=== PATIENT | female | born 1945 | race African-American/Black ===

== ENCOUNTER 2019-02-27 14:20 | Inpatient (IN) | payer MEDICARE ==
[~2019-02-27] VITALS: Ht 162.6 cm; Wt 58.5 kg
--- NOTE | 2019-02-27 14:35 | Emergency Room Report ---
History of Present Illness General Chief Complaint: Generalized Weakness Source: EMS Present Illness HPI Disclaimer: Please note that this report is being documented using [employer] technology. This can lead to erroneous entry secondary to incorrect interpretation by the dictating instrument. HPI: 73-year-old female with a history of hypertension, ESRD on hemodialysis, previous stroke without residual deficits, diabetes presents for evaluation of shortness of breath and missed dialysis. EMS states they were called for shortness of breath however when they arrived the patient had no complaints. There were told that she has not had dialysis in a week though is unclear what day she actually had dialysis. She does not know her schedule and is overall a poor historian. Per EMS, her baseline is AO x2. She denies any complaints at this time and denies shortness of breath, lower extremity swelling, cough, chest pain, headache. EMS states that her caretakers also noted increased agitation over the past few days which she again denies. Apparently, she has been not been transported to her dialysis because of an insurance issue and transport company refusing to take her. She either had dialysis 3 days ago or 10 days ago however this is unclear according to EMS and the patient. PMH: Hypertension, hyperlipidemia, ESRD on hemodialysis, CVA, diabetes PSH: Fistula formation left upper extremity Allergies: None Social Hx: None Allergies: Coded Allergies: No Known Allergies (Unverified , 02/27/19) Nursing Documentation-PMH Past Medical History: No History, Except For Hx Hypertension: Yes Hx Diabetes: Yes Hx Dialysis: Yes Hx Cerebrovascular Accident: Yes Review of Systems All Other Systems: negative except mentioned in HPI Physical Exam Vital Signs Date Time Temp Pulse Resp B/P (MAP) Pulse Ox O2 Delivery O2 Flow Rate FiO2 02/27/19 14:20 98.6 105 16 150/71 (97) 99 Room Air General: Awake and alert, no acute distress HEENT: NC/AT. EOMI. dry mucous membranes Cardiovascular: Slightly tachycardic. There is a systolic ejection murmur best heard at the left sternal border. Fistula with palpable thrill in the left upper extremity Resp: Normal work of breathing. No cough, wheezing or crackles appreciated Abdomen: Abdomen is soft, nondistended. Nontender Skin: Intact. No abrasions, laceration or rash over the exposed skin MSK: Normal tone and bulk. Moving all extremities. No obvious deformity. No lower extremity edema Neuro: Awake and alert. Mentating appropriately. Medical Decision Making Diagnostic Impression: Primary Impression: ESRD (end stage renal disease) on dialysis Additional Impression: Anemia ER Course 73-year-old female with a history of ESRD on hemodialysis presents for evaluation for missed dialysis appointment. Originally, the complaint was for shortness of breath however the patient denies any EMS states that she never complained of shortness of breath or was hypoxic on route. She has no complaints at this time. It is unclear when her last hemodialysis session was and we will try to obtain collateral information as the patient herself is a poor historian. Will obtain EKG, chest x-ray, broad metabolic and infectious work-up. She is in no acute distress with mild tachycardia but otherwise stable vital signs and no clinical symptoms of fluid overload. Laboratory Tests Test 02/27/19 14:35 White Blood Count 11.0 K/UL (4.8-10.8) H Red Blood Count 2.87 M/UL (4.20-5.40) L Hemoglobin 8.1 G/DL (12.0-16.0) L Hematocrit 24.4 % (37.0-47.0) L Mean Corpuscular Volume 85 FL (80-99) Mean Corpuscular Hemoglobin 28.2 PG (27.0-31.0) Mean Corpuscular Hemoglobin Concent 33.2 G/DL (32.0-36.0) Red Cell Distribution Width 12.7 % (11.6-14.8) Platelet Count 229 K/UL (150-450) Mean Platelet Volume 5.4 FL (6.5-10.1) L Neutrophils (%) (Auto) 64.8 % (45.0-75.0) Lymphocytes (%) (Auto) 22.7 % (20.0-45.0) Monocytes (%) (Auto) 7.3 % (1.0-10.0) Eosinophils (%) (Auto) 4.4 % (0.0-3.0) H Basophils (%) (Auto) 0.9 % (0.0-2.0) Prothrombin Time 10.7 SEC (9.30-11.50) Prothrombin Time INR 1.0 (0.9-1.1) PTT 28 SEC (23-33) Sodium Level 144 MMOL/L (136-145) Potassium Level 4.1 MMOL/L (3.5-5.1) Chloride Level 109 MMOL/L (98-107) H Carbon Dioxide Level 17 MMOL/L (21-32) L Anion Gap 19 mmol/L (5-15) H Blood Urea Nitrogen 86 mg/dL (7-18) H Creatinine 11.0 MG/DL (0.55-1.30) H Estimate Glomerular Filtration Rate mL/min (>60) Glucose Level 145 MG/DL (74-106) H Calcium Level 8.7 MG/DL (8.5-10.1) Total Bilirubin 0.3 MG/DL (0.2-1.0) Aspartate Amino Transferase (AST) 19 U/L (15-37) Alanine Aminotransferase (ALT) 25 U/L (12-78) Alkaline Phosphatase 81 U/L (46-116) Troponin I 0.011 ng/mL (0.000-0.056) Pro-B-Type Natriuretic Peptide 2661 pg/mL (0-125) H Total Protein 7.3 G/DL (6.4-8.2) Albumin 3.4 G/DL (3.4-5.0) Globulin 3.9 g/dL Albumin/Globulin Ratio 0.9 (1.0-2.7) L EKG Diagnostic Results EKG Time: 14:33 Rate: normal Rhythm: NSR ST Segments: no acute changes Other Impression Sinus rhythm, normal axis, normal intervals, no ST segment changes. Mild peaking of T waves in V2 only. Rhythm Strip Diag. Results Rhythm Strip Time: 14:33 EP Interpretation: yes Rate: 90s Rhythm: NSR, no PVC's, no ectopy Chest X-Ray Diagnostic Results Chest X-Ray Diagnostic Results : # of Views/Limited/Complete: 1 View Indication: Shortness of Breath EP Interpretation: Yes Interpretation: no consolidation, no effusion, no pneumothorax, no acute cardiopulmonary disease Impression: No acute disease Electronically Signed by: Electronically signed by Dr. Ryley Oliveira Reevaluation Time: 15:24 Last Vital Signs Date Time Temp Pulse Resp B/P (MAP) Pulse Ox O2 Delivery O2 Flow Rate FiO2 02/27/19 14:20 98.6 105 16 150/71 (97) 99 Room Air Reevaluation Impression Labs show anemia with a hemoglobin of 8.1 likely secondary to the patient's chronic kidney disease. There is no active bleeding and she is hemodynamically stable. Does not require emergent transfusion at this time. Chest x-ray shows no consolidation, no effusion, no acute cardiopulmonary disease and no evidence of acute fluid overload. She does not appear to require emergent dialysis at this time.. BN peptide elevated consistent with the patient's ESRD and need for dialysis as is creatinine and BUN. Will try and arrange dialysis with PMD and tile grader. 1615: Unable to arrange dialysis as the patient's tile grader is out of town, the office has no documentation on the patient, PMD unable to arrange due to a lapse in her [employer] coverage even though she still has Medicare and be active. The patient is bedridden and while she does have some in-home health aide they will not be able to arrange her own dialysis and transport. She will require admission for dialysis and social work evaluation. I updated the patient's brother by telephone. He tells me that she has missed at least 3 episodes of dialysis and has not received dialysis since since February 20 when she was at [facility]. Disposition: ADMITTED INPATIENT Condition: Serious Ryley Oliveira MD Feb 27, 2019 14:35
[2019-02-27] MEDS ORDERED: ASPIRIN81 MG ORAL (14:36)
[2019-02-27] MEDS ORDERED: B-COMPLEX WITH1 EACH ORAL (14:36)
[2019-02-27] MEDS ORDERED: DOCUSATE SODIU100 MG ORAL (14:36)
[2019-02-27] MEDS ORDERED: VITAMIN D250000 UNI1 ORAL (14:36)
[2019-02-27] MEDS ORDERED: ATORVASTATIN CA40 MG ORAL (14:36)
[2019-02-27] MEDS ORDERED: HYDRALAZINE HC100 MG ORAL (14:36)
[2019-02-27] MEDS ORDERED: AMLODIPINE BESY10 MG ORAL (14:36)
--- NOTE | 2019-02-27 14:39 | NUR ---
ED Nurse Note:pt. was JOSUÉ from private residence with c/o missing dialysis tod, last dialysis at [facility] on tuesday
--- NOTE | 2019-02-27 14:42 | NUR ---
ED Nurse Note:blood sent to labs, dialysis line is on left arm
[2019-02-27 14:44] VITALS: BP 149/69
[2019-02-27 14:50] LABS: BASOPHILS % (AUTO) 0.9 % (0.0-2.0); EOSINOPHILS % (AUTO) 4.4 % (0.0-3.0); HEMATOCRIT 24.4 % (37.0-47.0); HEMOGLOBIN 8.1 G/DL (12.0-16.0); LYMPHOCYTES % (AUTO) 22.7 % (20.0-45.0); MEAN CORPUSCULAR VOLUME 85 FL (80-99); MONOCYTES % (AUTO) 7.3 % (1.0-10.0); NEUTROPHILS % (AUTO) 64.8 % (45.0-75.0); PLATELET COUNT 229 K/UL (150-450); RED BLOOD COUNT 2.87 M/UL (4.20-5.40); RED CELL DISTRIBUTION WIDTH 12.7 % (11.6-14.8)
[2019-02-27 15:05] LABS: ANION GAP 19 mmol/L (5-15); BLOOD UREA NITROGEN 86 mg/dL (7-18); CALCIUM 8.7 MG/DL (8.5-10.1); CARBON DIOXIDE 17 MMOL/L (21-32); CHLORIDE 109 MMOL/L (98-107); POTASSIUM 4.1 MMOL/L (3.5-5.1); SODIUM 144 MMOL/L (136-145)
[2019-02-27 15:17] LABS: ALANINE AMINOTRANSFERASE 25 U/L (12-78); ALBUMIN 3.4 G/DL (3.4-5.0); ALBUMIN/GLOBULIN RATIO 0.9 (1.0-2.7); ALKALINE PHOSPHATASE 81 U/L (46-116); ASPARTATE AMINO TRANSFERASE 19 U/L (15-37); BILIRUBIN,TOTAL 0.3 MG/DL (0.2-1.0)
--- NOTE | 2019-02-27 15:33 | Diagnostic Imaging Report ---
Indication: Shortness of breath Technique: One view of the chest Comparison: none Findings: Lungs and pleural spaces are clear. Heart size is normal. Impression: No acute process
--- NOTE | 2019-02-27 17:06 | NUR ---
ED Nurse Note: Patient gets dialysis ([place], [place]) at [place] [facility] . Last dialysis was 02/17/2019. Per Brother @ [phone], patient unable to get tranportation from home to dialysis center due to lack of insurance.
[2019-02-27 17:44] VITALS: BP 148/67
--- NOTE | 2019-02-27 18:30 | NUR ---
ED Nurse Note:called report to [facility] east- given to Dolores RN, pt. was taken up stairs
--- NOTE | 2019-02-27 18:43 | NUR ---
NURSE NOTES: Patient arrived the floor from ER by cole around 1835; I received report from ER Kelsey; patient on room air, no sing of distress and shortness of breath; no sing of chest pain; IV RH 20G flushes well; hemodialysis port on Left-Upper Arm; patient bed bound; skin intact; belonging lists crossed match and singed by transferring nurse and receiving nurse; vitals taken upon arrival of the unit. side rails up x3, breaks engaged, bed alarm on, bed at lowest position; will keep monitoring.
[2019-02-27 18:47] VITALS: BP 170/82
--- NOTE | 2019-02-27 19:35 | NUR ---
HAND-OFF: Report given to MICHAEL Abebe.
--- NOTE | 2019-02-27 19:36 | NUR ---
NURSE NOTES: Received a report from MICHAEL Almanzar. Pt is in stable condition. AOX2. Able to make needs known. C/O vaginal pain, rated 10/10. Will give pain med once it's due. On room air. Belongings checked by MICHAEL Almanzar. Perineal discoloration noted. Overall, skin is intact. IV site is patent and intact. Bed in lowest position. Bed alarm is on. Call light within reach. Will continue to monitor.
[2019-02-27 20:00] VITALS: BP 141/73
[2019-02-27] MEDS: Heparin 5000 units/ml inj SUBQ SCH (21:00)
[2019-02-27] MEDS: HydrALAZINE 50mg tab ORAL SCH (21:18)
[2019-02-27] MEDS: Atorvastatin 80mg tab ORAL SCH (21:18)
[2019-02-27] MEDS: Morphine Sulfate 2mg/ml Inj(IV/IM USE ONLY) IVP PRN (21:20)
[2019-02-28] VITALS: BP 153/82
[2019-02-28 04:00] VITALS: BP 150/72
[2019-02-28] MEDS: HydrALAZINE 50mg tab ORAL SCH ×3 (06:03→21:07)
[2019-02-28] MEDS: Morphine Sulfate 2mg/ml Inj(IV/IM USE ONLY) IVP PRN ×2 (06:04→14:11)
--- NOTE | 2019-02-28 07:25 | NUR ---
NURSE NOTES: Patient awake, alert x2; on room air, no sing of distress and shortness of breath; no sing of chest pain; IV RH 20G flushes well; Hemodialysis port on Left-Upper Arm; perineal discoloration noted; need to collect Urinalysis, received an order MD Quevedo to do straight cath; side rails up x2, breaks engaged, bed at lowest position, call light within reach; will keep monitoring.
--- NOTE | 2019-02-28 07:28 | NUR ---
HAND-OFF: Report given to MICHAEL Almanzar.
[2019-02-28 08:00] VITALS: BP 137/73
[2019-02-28] MEDS: Nephrovite tab (Rena-Vite) ORAL SCH (08:58)
[2019-02-28] MEDS: Docusate 100mg cap ORAL SCH ×2 (08:58→17:12)
[2019-02-28] MEDS: Aspirin Baby 81mg ORAL SCH (08:58)
[2019-02-28] MEDS: Heparin 5000 units/ml inj SUBQ SCH ×2 (08:59→21:07)
[2019-02-28 09:50] LABS: % IRON SATURATION 32 % (15-50); IRON 53 ug/dL (50-175); TOTAL IRON BINDING CAPACITY 167 ug/dL (250-450)
--- NOTE | 2019-02-28 10:15 | History and Physical Report ---
DATE OF ADMISSION: 02/27/2019 CHIEF COMPLAINT: Renal failure and missed hemodialysis. HISTORY OF PRESENT ILLNESS: The patient is a 73-year-old female. She has a history of end-stage renal disease and hypertension, who presented from home with her family because of missed dialysis. According to family members, there has been problems with transportation. The patient has been unable to get to hemodialysis. There may be an issue with her [employer]. Because of her missed dialysis and renal failure, she is admitted for further evaluation and care. The patient is a poor historian. She is slow to answer questions and seems slightly confused. It is unclear whether this is her baseline or not. Intensive contact with her brother so far have been unsuccessful. The patient denies any fevers or chills. No chest pain. No shortness of breath. No weakness or numbness. PAST MEDICAL HISTORY: As above. PAST SURGICAL HISTORY: Includes a left upper extremity AV fistula. CURRENT MEDICATIONS: Reconciled and reviewed. ALLERGIES: None. FAMILY HISTORY: Significant for diabetes. SOCIAL HISTORY: Negative for tobacco, ethanol, or drugs. REVIEW OF SYSTEMS: GENERAL: No fever or chills. HEENT: No headaches or visual changes. CARDIOPULMONARY: No chest pain or shortness of breath. GASTROINTESTINAL: No nausea. No vomiting. GENITOURINARY: No urgency or frequency. MUSCULOSKELETAL: No joint pain or swelling. NEUROLOGIC: No evidence of seizures. PHYSICAL EXAMINATION: VITAL SIGNS: Temperature 98, pulse 103, respirations 18, and blood pressure 150/72. GENERAL: The patient is a well-developed female, in no apparent distress. NECK: Supple. HEART: Regular rate and rhythm. LUNGS: Lungs are clear. ABDOMEN: Soft, nontender, and nondistended. EXTREMITIES: Without clubbing or cyanosis. There is a left upper extremity AV fistula with a good bruit. LABORATORY DATA: White count 11, hemoglobin 8, hematocrit 24, and platelets 229,000. Coags are normal. Sodium was 144, potassium 4.1, chloride 109, bicarb 17, BUN 86, and creatinine 11. Natriuretic peptide level was 2600. ASSESSMENT: This is a 73-year-old female with history of end-stage renal disease and hypertension, admitted because of missed hemodialysis. PLAN: 1. Continue outpatient antihypertensive regimen. 2. Renal consultation for dialysis. 3. Cardiology consultation to assist with management of the patient's blood pressure. 4. Case management and social services counselor also be asked to assist with her insurance problems and transportation issues. Once transportation is arranged, the patient can be discharged. Freddy Quevedo M.D. DR: JESSICA JOB#: [id number] CC:
[2019-02-28 12:00] VITALS: BP 154/65
--- NOTE | 2019-02-28 12:16 | NUR ---
CASE MANAGEMENT: REVIEW 73 YR OLD FEMALE FROM HOME CC: GENERAL WEAKNESS SI: END STAGE RENAL DISEASE- PT ON DIALYSIS 98.6 105 15 150/71 99%RA WBC 11.0; RBC 2.87; H/H 8.8/24.4; BUN 86, CRE 11.0, BG 145 BNP 2661; IS: CXR ECG LABS : 4E MED SURG DCP: SNF PLACEMENT CASE MANAGEMENT: REVIEW 02/28/19 SI: END STAGE RENAL DISEASE- PT ON DIALYSIS 98.7 101 20 137/73 98%RA TIBC 167 IS: HEPARIN SQ [id number] PO QD ASA PO QD HYDRALAZINE PO Q8HR LIPITOR PO HS IV MORPHINE SULFATE TID/PRN 4E MED/SURG DCP: RETURN TO HOME OR SNF PLACEMENT
--- NOTE | 2019-02-28 14:00 | NUR ---
NURSE NOTES: Patient dialyzed today, according to dialysis nursuad, 2 Liters removed.
--- NOTE | 2019-02-28 15:55 | NUR ---
NURSE NOTES: Patient couldn't let me try to do straight cath; charge nurse Yana is aware; will keep trying.
[2019-02-28 16:00] VITALS: BP 147/76
--- NOTE | 2019-02-28 16:09 | NUR ---
DISCHARGE PLAN: PLACEMENT AND DIALYSIS PATIENT WAS PREVIOUS AT [facility]; SPOKE TO JENNIFER T: [phone] FACILITY IS HAPPY TO TAKE PATIENT BACK ONCE MEDICALLY CLEARED; PATIENT WAS ON DIALYSIS AT FACILITY; FACILITY WILLING TO TAKE PATIENT TO DIALYSIS WHILE WAITING FOR MEDICAL TO PROCESS; JENNIFER WILL SETUP MEDICAL ONCE PATIENT IS AT FACILITY.
--- NOTE | 2019-02-28 16:30 | Consultation ---
DATE OF CONSULTATION: 02/28/2019 CONSULTING PHYSICIAN: Alonso Cavazos M.D. REFERRING PHYSICIAN: Freddy Quevedo M.D. HISTORY OF PRESENT ILLNESS: The patient is a 73-year-old female who undergoes hemodialysis three days per week presented to the emergency room overnight for further evaluation and care after the family brought her in because she had missed several dialysis sessions. According to the family, she has had troubles with transportation and is unable to ascertain her dialysis session on a regular basis due to her underlying insurance carrier. The patient is difficult to assess, poor historian. PAST MEDICAL HISTORY: 1. End-stage renal disease, on hemodialysis. 2. Anemia of chronic kidney disease. 3. Secondary hyperparathyroidism. 4. Hypertension. 5. Hyperlipidemia. PAST SURGICAL HISTORY: Left upper extremity AV fistula FAMILY HISTORY: Positive for hypertension. ALLERGIES: No known drug allergies SOCIAL HISTORY: No tobacco, alcohol, or drug use. LABORATORY AND DIAGNOSTIC DATA: Labs dated February 27, 2019, white cell count 11, hemoglobin 8, and platelet count 229. Creatinine 11, sodium 144, potassium 4.1, BUN 86. PHYSICAL EXAMINATION: VITAL SIGNS: Blood pressure 137/73, pulse 100, temperature 98.7, 98% oxygen saturation on room air. GENERAL: The patient is awake, alert, not in distress. HEENT: Extraocular muscles intact. No lymphadenopathy noted. CARDIOVASCULAR: S1 and S2. No rubs or gallops. PULMONARY: Clear to auscultation bilaterally. No rales, rhonchi, or wheezes. ABDOMEN: Nondistended and nontender. EXTREMITIES: No edema. ASSESSMENT AND PLAN: 1. End-stage renal disease, on hemodialysis. The patient currently undergoing hemodialysis session. We will continue to follow daily labs. 2. Hypertension, stable. Adjust medications as deemed appropriate. 3. Anemia of chronic kidney disease. Hemoglobin currently 8.1. We will add Epogen with hemodialysis. 4. . will return tomorrow. Alonso Cavazos MD DR: Jennifer JOB#: [id number] CC:
[2019-02-28] MEDS: HYDROcodone/Acetamin 10/325 tab ORAL PRN (17:12)
--- NOTE | 2019-02-28 19:34 | NUR ---
HAND-OFF: Report given to MICHAEL Schwartz.
--- NOTE | 2019-02-28 19:52 | NUR ---
NURSE NOTES: Received patient awake,resting in bed,comfortable.
[2019-02-28 20:09] VITALS: BP 142/65
[2019-02-28] MEDS ORDERED: Epoetin Alfa-EPBX(ESRD on dialysis)10,000 unit/ml vial SUBQ SCH (21:00)
[2019-02-28] MEDS ORDERED: Epoetin Alfa-EPBX(ESRD on dialysis)3000 units/ml vial SUBQ SCH (21:00)
[2019-02-28] MEDS ORDERED: Epoetin Alfa-EPBX(ESRD on dialysis)4000 units/ml vial SUBQ SCH (21:00)
[2019-02-28] MEDS: Atorvastatin 80mg tab ORAL SCH (21:07)
[2019-03-01] VITALS: BP 126/80
[2019-03-01 04:00] VITALS: BP 136/66
[2019-03-01] MEDS: HydrALAZINE 50mg tab ORAL SCH ×3 (06:00→22:28)
--- NOTE | 2019-03-01 07:35 | NUR ---
HAND-OFF: Report given to Kaelyn Thomas RN.
--- NOTE | 2019-03-01 07:37 | General Progress Note ---
Assessment/Plan Problem List: (1) Anemia ICD Codes: D64.9 - Anemia, unspecified SNOMED: 722267122 (2) ESRD (end stage renal disease) on dialysis ICD Codes: N18.6 - End stage renal disease; Z99.2 - Dependence on renal dialysis SNOMED: 175567928 Status: stable Assessment/Plan: follow up labs HD dc planning home once transportation arranged Subjective ROS Limited/Unobtainable: No Constitutional: Reports: malaise, weakness HEENT: Reports: no symptoms Cardiovascular: Reports: no symptoms Respiratory: Reports: no symptoms Gastrointestinal/Abdominal: Reports: no symptoms Genitourinary: Reports: no symptoms Neurologic/Psychiatric: Reports: anxiety Endocrine: Reports: no symptoms Hematologic/Lymphatic: Reports: no symptoms Allergies: Coded Allergies: No Known Allergies (Unverified , 02/27/19) All Systems: reviewed and negative except above Subjective no events. w/o complaints. s/p HD yesterday. no new complaints. Objective Last 24 Hour Vital Signs Date Time Temp Pulse Resp B/P (MAP) Pulse Ox O2 Delivery O2 Flow Rate FiO2 03/01/19 06:00 136/66 03/01/19 04:00 97.8 100 16 136/66 (89) 96 03/01/19 00:00 98.2 90 16 126/80 (95) 98 02/28/19 21:07 142/65 02/28/19 20:21 Room Air 02/28/19 20:09 97.9 94 16 142/65 (90) 98 02/28/19 17:42 98.2 02/28/19 16:00 98.2 104 20 147/76 (99) 98 02/28/19 14:41 98.1 02/28/19 13:14 154/65 02/28/19 12:00 98.1 97 20 154/65 (94) 100 02/28/19 09:00 Room Air 02/28/19 08:58 101 137/73 02/28/19 08:00 98.7 101 20 137/73 (94) 98 Intake and Output 02/28/19 03/01/19 18:59 06:59 Intake Total 480 ml Output Total 2000 ml Balance -1520 ml Intake Oral 480 ml Output Hemodialysis UF 2000 ml # Voids 2 Laboratory Tests 02/28/19 08:40: Iron Level 53, Total Iron Binding Capacity 167L, Percent Iron Saturation 32, Unsaturated Iron Binding 114 Height (Feet): 5 Height (Inches): 4.00 Weight (Pounds): 127 General Appearance: WD/WN, alert Neck: supple Cardiovascular: normal rate Respiratory/Chest: chest wall non-tender, lungs clear, normal breath sounds Abdomen: normal bowel sounds, non tender, soft, no organomegaly Edema: no edema noted Arm (L), no edema noted Arm (R), no edema noted Leg (L), no edema noted Leg (R), no edema noted Pedal (L), no edema noted Pedal (R), no edema noted Generalized Neurologic: commercial energy rater II-XII grossly normal, alert, oriented x 3, responsive Freddy Quevedo MD Mar 01, 2019 07:37
--- NOTE | 2019-03-01 07:49 | NUR ---
NURSE NOTES: Patient is awake and alert ,respirations unlabored,patient sitting up in bed and eating breakfast.Right arm dialysis catheter with strong bruit and thrills. Bed alarm is internet sales consultant light within reach.No IV noted will reinsert .
[2019-03-01 08:36] VITALS: BP 145/76
[2019-03-01] MEDS: Heparin 5000 units/ml inj SUBQ SCH ×2 (08:40→20:16)
--- NOTE | 2019-03-01 08:52 | NUR ---
NURSE NOTES: Attempt to give patient her morning oral schedule medication ,patient refusing medication,explain to patient the importance of taking medication,patient says no.
[2019-03-01] MEDS: Docusate 100mg cap ORAL SCH ×2 (09:00→17:47)
[2019-03-01] MEDS: Nephrovite tab (Rena-Vite) ORAL SCH (10:37)
[2019-03-01] MEDS: Aspirin Baby 81mg ORAL SCH (10:39)
--- NOTE | 2019-03-01 10:42 | NUR ---
NURSE NOTES: Patient agree to take her morning medication at this time, except stool softner.
[2019-03-01 12:00] VITALS: BP 139/65
--- NOTE | 2019-03-01 14:56 | Nephrology Progress Note ---
Assessment/Plan Problem List: (1) Hypertensive nephrosclerosis (2) Dementia (3) Anemia in chronic kidney disease (4) ESRD (end stage renal disease) on dialysis Plan Medications reviewed for end-stage renal disease she needs Epogen and arrangement for outpatient care dialysis arranged for 03/02 Subjective ROS Limited/Unobtainable: Yes Objective Objective Last 24 Hour Vital Signs Date Time Temp Pulse Resp B/P (MAP) Pulse Ox O2 Delivery O2 Flow Rate FiO2 03/01/19 10:38 97 142/67 03/01/19 10:18 Room Air 03/01/19 08:36 97.7 99 18 145/76 (99) 96 03/01/19 06:00 136/66 03/01/19 04:00 97.8 100 16 136/66 (89) 96 03/01/19 00:00 98.2 90 16 126/80 (95) 98 02/28/19 21:07 142/65 02/28/19 20:21 Room Air 02/28/19 20:09 97.9 94 16 142/65 (90) 98 02/28/19 17:42 98.2 02/28/19 16:00 98.2 104 20 147/76 (99) 98 Intake and Output 02/28/19 03/01/19 19:00 07:00 Intake Total 480 ml Output Total 2000 ml Balance -1520 ml Intake Oral 480 ml Output Hemodialysis UF 2000 ml # Voids 2 Laboratory Tests 03/01/19 09:40: Hepatitis B Surface Antigen [Pending] Height (Feet): 5 Height (Inches): 4.00 Weight (Pounds): 129 General Appearance: no apparent distress, lethargic, confused EENT: normal ENT inspection Neck: normal alignment Cardiovascular: normal rate, regular rhythm Respiratory/Chest: lungs clear Abdomen: non tender Extremities: other Neurologic: motor weakness Dylon Stringer MD Mar 01, 2019 14:56
[2019-03-01] MEDS ORDERED: Heparin Sod 1000 units/ml 10ml IV PRN (15:00)
[2019-03-01 16:00] VITALS: BP 125/63
--- NOTE | 2019-03-01 18:22 | NUR ---
CHARGE NURSE NOTE: [facility] ([place]) was notified that pt is scheduled for HD tomorrow 03/02/19.
--- NOTE | 2019-03-01 18:30 | NUR ---
NURSE NOTES: Patient sitting up in bed,no complaints at this time,call light within reach.
--- NOTE | 2019-03-01 19:35 | NUR ---
NURSE NOTES: Received patient in bed, awake, alert, oriented x2/3, IV site is clean dry and intact. Left upper shunt with good bruit and thrill, no acute distress noted, call light is within reach, bed is in low position, locked and alarm is on. Will continue to assess for comfort and safety.
--- NOTE | 2019-03-01 19:49 | NUR ---
HAND-OFF: Report given to Zainab RODRIGUEZ.
[2019-03-01 20:00] VITALS: BP 154/70
[2019-03-01] MEDS: Atorvastatin 80mg tab ORAL SCH (20:14)
[2019-03-02] VITALS: BP 110/78
[2019-03-02 04:00] VITALS: BP 143/78
--- NOTE | 2019-03-02 04:30 | Progress Note ---
DATE: 03/01/2019 CARDIOLOGY PROGRESS NOTE SUBJECTIVE: The patient is status post hemodialysis with ultrafiltration yesterday. Blood pressure parameters have improved, but remains slightly elevated. She has no chest pain or shortness of breath. OBJECTIVE: VITAL SIGNS: Blood pressure 136/66, pulse 100, respirations 16, and afebrile. LUNGS: Clear. CARDIAC: Regular rhythm and rate. Normal S1, S2 with a fourth heart sound. There is no rub. ABDOMEN: Soft. EXTREMITIES: No edema. LABORATORY DATA: Cultures remain negative. No new laboratories. IMPRESSION: 1. Missed dialysis with metabolic encephalopathy. 2. End-stage renal disease. 3. Hypertensive heart disease. 4. Acute on chronic diastolic congestive heart failure. PLAN: 1. Hemodialysis with ultrafiltration for volume management. 2. Cautious up titration of antihypertensives. 3. Check echocardiogram to help guide long-term cardiovascular management based on ejection fraction. 4. Consider lipid panel. 5. We will attempt to review prior database. Bulmaro Hester M.D. DR: JEANNE JOB#: [id number] CC:
[2019-03-02] MEDS: HydrALAZINE 50mg tab ORAL SCH (05:49)
[2019-03-02] MEDS: HYDROcodone/Acetamin 10/325 tab ORAL PRN (06:53)
--- NOTE | 2019-03-02 07:35 | NUR ---
HAND-OFF: Report given to Kaelyn RODRIGUEZ.
--- NOTE | 2019-03-02 07:57 | NUR ---
NURSE NOTES: Patient is awake and alert sitting up in bed and eating breakfast.Respirations are unlabored/Left arm shunt with strong bruit and thrill ,skin clean and dry .Bed alarm is on,call light within reach.Patient is schedule for Dialysis today,will follow up.
[2019-03-02 08:01] VITALS: BP 145/72
--- NOTE | 2019-03-02 08:09 | Nephrology Progress Note ---
Assessment/Plan Problem List: (1) Hypertensive nephrosclerosis (2) Dementia (3) Anemia in chronic kidney disease (4) ESRD (end stage renal disease) on dialysis (5) CVA, old, cognitive deficits Plan Medications reviewed for end-stage renal disease she needs Epogen and arrangement for outpatient care dialysis arranged for 03/02 hold hydralazine predialysis to mitigate hypotension Subjective Constitutional: Reports: weakness HEENT: Reports: no symptoms Genitourinary: Reports: no symptoms Neurologic/Psychiatric: Reports: pre-existing deficit Objective Objective Last 24 Hour Vital Signs Date Time Temp Pulse Resp B/P (MAP) Pulse Ox O2 Delivery O2 Flow Rate FiO2 03/02/19 08:01 98.1 93 18 145/72 (96) 100 03/02/19 07:33 97.8 03/02/19 05:49 143/78 03/02/19 04:00 97.8 78 18 143/78 (99) 98 03/02/19 00:00 97.8 74 20 110/78 (89) 98 03/01/19 22:28 139/78 03/01/19 21:05 Room Air 03/01/19 20:00 98.9 93 18 154/70 (98) 97 03/01/19 16:00 98.2 89 20 125/63 (83) 99 03/01/19 15:09 139/62 03/01/19 12:00 97.7 100 139/65 (89) 96 03/01/19 10:38 97 142/67 03/01/19 10:18 Room Air 03/01/19 08:36 97.7 99 18 145/76 (99) 96 Intake and Output 03/01/19 03/02/19 18:59 06:59 Intake Total 750 ml Balance 750 ml Intake Oral 750 ml # Voids 3 Laboratory Tests 03/01/19 09:40: Hepatitis B Surface Antigen Negative Height (Feet): 5 Height (Inches): 4.00 Weight (Pounds): 129 General Appearance: no apparent distress, confused EENT: normal ENT inspection Neck: non-tender, normal alignment Cardiovascular: normal rate, regular rhythm Respiratory/Chest: lungs clear Abdomen: non tender, soft Extremities: other - No edema Neurologic: motor weakness - Left side weakness Dylon Stringer MD Mar 02, 2019 08:09
[2019-03-02] MEDS: Docusate 100mg cap ORAL SCH ×2 (09:00→18:00)
[2019-03-02] MEDS: Aspirin Baby 81mg ORAL SCH (09:26)
[2019-03-02] MEDS: Nephrovite tab (Rena-Vite) ORAL SCH (09:26)
[2019-03-02] MEDS: Heparin 5000 units/ml inj SUBQ SCH (09:28)
[2019-03-02] MEDS ORDERED: Iron Sucrose 100 MG in NS 55 ML IV SCH (10:00)
[2019-03-02 12:00] VITALS: BP 141/74
--- NOTE | 2019-03-02 13:45 | NUR ---
P.T NOTE: P.T evaluation completed and tx initiated. Please refer to P.T evaluation for current functional status. Pt is alert, O x to self/person and place but not to time. Pt had no c/o pain. Pt is limited by residual L hemiparesis from old hx of CVA and generalized weakness affecting overall functional mobility performance. Skilled P.T service is warranted to improve her strength , balance and endurance to increase her mobility independence and return to PLOF. Recommend return to prior living arrangement with [facility] assist and home P.T follow up at [place].
[2019-03-02] MEDS ORDERED: HydrALAZINE 50mg tab ORAL SCH (14:00)
[2019-03-02 14:06] VITALS: BP 128/69
--- NOTE | 2019-03-02 14:23 | NUR ---
NURSE NOTES: Patient IV out,attempt to restart iv,patient state No leave me alone,I do not want IV.Explain to patient regarding medication ordered to be given IV,patient state she do not want IV,will notify DR Stringer.
--- NOTE | 2019-03-02 14:42 | NUR ---
RD ASSESSMENT & RECOMMENDATIONS SEE CARE ACTIVITY FOR COMPLETE ASSESSMENT DAILY ESTIMATED NEEDS: Needs based on Renal, HD/ 59kg 25-30 kcals/kg 2863-7570 total kcals 1.2-1.8 g protein/kg 71-106 g total protein 25-30 mL/kg 3600-4157 total fluid mLs NUTRITION DIAGNOSIS: Increased kcal/prot intake needs R/T renal dysfunction as evidenced by ESRD dx, on HD. CURRENT DIET:RENAL PO DIET RECOMMENDATIONS: RENAL+ CCHO MED/ texture as tolerated ADDITIONAL RECOMMENDATIONS: * Calibrated bedscale wt for accurate CBW -> obtain dry wt post HD * Nepro 1 tetra penny daily w/ variable PO : 425kcal/19g prot per penny * Updated CBC and BMP * Monitor BGs, need for hypoglycemics: h/o DM
--- NOTE | 2019-03-02 15:34 | Cardiology Report ---
APPROVED REPORT EKG Measurement Heart [id number] Normal sinus rhythm Normal ECG
[2019-03-02 16:00] VITALS: BP 124/69
--- NOTE | 2019-03-02 16:10 | General Progress Note ---
Assessment/Plan Problem List: (1) Anemia ICD Codes: D64.9 - Anemia, unspecified SNOMED: 141240932 (2) ESRD (end stage renal disease) on dialysis ICD Codes: N18.6 - End stage renal disease; Z99.2 - Dependence on renal dialysis SNOMED: 927242321 Status: stable Assessment/Plan: follow up labs HD dc planning home once transportation arranged Subjective ROS Limited/Unobtainable: No Constitutional: Reports: malaise, weakness HEENT: Reports: no symptoms Cardiovascular: Reports: no symptoms Respiratory: Reports: no symptoms Gastrointestinal/Abdominal: Reports: no symptoms Genitourinary: Reports: no symptoms Neurologic/Psychiatric: Reports: no symptoms Endocrine: Reports: no symptoms Hematologic/Lymphatic: Reports: no symptoms Allergies: Coded Allergies: No Known Allergies (Unverified , 02/27/19) All Systems: reviewed and negative except above Subjective no events. w/o complaints. s/p HD yesterday. no new complaints. Objective Last 24 Hour Vital Signs Date Time Temp Pulse Resp B/P (MAP) Pulse Ox O2 Delivery O2 Flow Rate FiO2 03/02/19 14:06 92 128/69 (88) 03/02/19 13:57 128/69 03/02/19 12:00 98.1 98 20 141/74 (96) 98 03/02/19 09:00 Room Air 03/02/19 08:01 98.1 93 18 145/72 (96) 100 03/02/19 07:33 97.8 03/02/19 05:49 143/78 03/02/19 04:00 97.8 78 18 143/78 (99) 98 03/02/19 00:00 97.8 74 20 110/78 (89) 98 03/01/19 22:28 139/78 03/01/19 21:05 Room Air 03/01/19 20:00 98.9 93 18 154/70 (98) 97 Intake and Output 03/01/19 03/02/19 19:00 07:00 Intake Total 750 ml Balance 750 ml Intake Oral 750 ml # Voids 3 Height (Feet): 5 Height (Inches): 4.00 Weight (Pounds): 129 Objective General Appearance: WD/WN, alert Neck: supple Cardiovascular: normal rate Respiratory/Chest: chest wall non-tender, lungs clear, normal breath sounds Abdomen: normal bowel sounds, non tender, soft, no organomegaly Edema: no edema noted Arm (L), no edema noted Arm (R), no edema noted Leg (L), no edema noted Leg (R), no edema noted Pedal (L), no edema noted Pedal (R), no edema noted Generalized Neurologic: 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
--- NOTE | 2019-03-02 16:13 | General Progress Note ---
Assessment/Plan Problem List: (1) Anemia ICD Codes: D64.9 - Anemia, unspecified SNOMED: 368986736 (2) ESRD (end stage renal disease) on dialysis ICD Codes: N18.6 - End stage renal disease; Z99.2 - Dependence on renal dialysis SNOMED: 528909991 Status: stable Assessment/Plan: follow up labs HD dc planning home once transportation arranged Subjective Allergies: Coded Allergies: No Known Allergies (Unverified , 02/27/19) Subjective no events. w/o complaints. s/p HD yesterday. no new complaints. Objective Last 24 Hour Vital Signs Date Time Temp Pulse Resp B/P (MAP) Pulse Ox O2 Delivery O2 Flow Rate FiO2 03/02/19 14:06 92 128/69 (88) 03/02/19 13:57 128/69 03/02/19 12:00 98.1 98 20 141/74 (96) 98 03/02/19 09:00 Room Air 03/02/19 08:01 98.1 93 18 145/72 (96) 100 03/02/19 07:33 97.8 03/02/19 05:49 143/78 03/02/19 04:00 97.8 78 18 143/78 (99) 98 03/02/19 00:00 97.8 74 20 110/78 (89) 98 03/01/19 22:28 139/78 03/01/19 21:05 Room Air 03/01/19 20:00 98.9 93 18 154/70 (98) 97 Intake and Output 03/01/19 03/02/19 19:00 07:00 Intake Total 750 ml Balance 750 ml Intake Oral 750 ml # Voids 3 Height (Feet): 5 Height (Inches): 4.00 Weight (Pounds): 129 Objective General Appearance: WD/WN, alert Neck: supple Cardiovascular: normal rate Respiratory/Chest: chest wall non-tender, lungs clear, normal breath sounds Abdomen: normal bowel sounds, non tender, soft, no organomegaly Edema: no edema noted Arm (L), no edema noted Arm (R), no edema noted Leg (L), no edema noted Leg (R), no edema noted Pedal (L), no edema noted Pedal (R), no edema noted Generalized 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 MD Mar 02, 2019 16:13
--- NOTE | 2019-03-02 18:13 | NUR ---
NURSE NOTES:Left message for Dr Stringer regarding order Venofer IV,patient refuse today to have IV restarted. explain to patient the reason that IV needed to be restarted,patient says no I do not want IV inserted. Also to let DR Stringer know patient has a discharge order for today .
--- NOTE | 2019-03-02 18:29 | NUR ---
NURSE NOTES: DR Stringer called back and aware patient refusing IV restart and Unable to give Venofer and aware of patient discharge order from DR Quevedo.
[2019-03-02] MEDS ORDERED: ZOFRAN 4 MG4 MG/2 ML IV (19:06)
[2019-03-02] MEDS ORDERED: PCA MORPHINE1 MG/ML IV (19:06)
[2019-03-02] MEDS ORDERED: NORCO 10-325 T1 EACH ORAL (19:07)
[2019-03-02] MEDS ORDERED: HYDRALAZINE HC100 MG ORAL (19:07)
[2019-03-02] MEDS ORDERED: HEPARIN SO5000 UNIT2 SUBQ (19:07)
[2019-03-02] MEDS ORDERED: CLONIDINE HCL0.1 MG PO (19:08)
[2019-03-02] MEDS ORDERED: EPOGEN20000 UNI1 SUBQ (19:08)
[2019-03-02] MEDS ORDERED: ACETAMINOPHEN325 M1 ORAL (19:09)
--- NOTE | 2019-03-02 19:25 | NUR ---
HAND-OFF: Report given to Manfred RODRIGUEZ.
--- NOTE | 2019-03-02 20:48 | NUR ---
NURSE NOTES: Pt being discharged to [facility], pt refused MRSA swab protocol, belongings list unable to be signed by pt she has 4 rings she is wearing and a sheet in a bag given to EMT, discharge paperwork in packet with EMT, no IV and ID band removed.
[2019-03-02] MEDS ORDERED: Epoetin Alfa-EPBX(ESRD on dialysis)3000 units/ml vial SUBQ SCH (21:00)
[2019-03-02] MEDS ORDERED: Epoetin Alfa-EPBX(ESRD on dialysis)4000 units/ml vial SUBQ SCH ×2 (21:00)
--- NOTE | 2019-03-04 03:15 | Progress Note ---
DATE: 03/02/2019 CARDIOLOGY PROGRESS NOTE SUBJECTIVE: The patient had hemodialysis yesterday. She has no chest pain or shortness of breath. No nausea or vomiting. OBJECTIVE: VITAL SIGNS: Blood pressure 128/69, pulse 92, respirations 20, afebrile. LUNGS: Clear. CARDIAC: Regular. Normal S1, S2 with a 1/6 systolic murmur at the apex. ABDOMEN: Soft and nontender. EXTREMITIES: There is no edema. DIAGNOSTIC DATA: Echocardiogram reviewed. Ejection fraction normal. IMPRESSION: 1. Metabolic encephalopathy, resolved with resumption of hemodialysis and ultrafiltration. 2. Hypertensive heart disease with overall adequate blood pressure control. 3. Acute on chronic diastolic congestive heart failure, now compensated with ultrafiltration. 4. End-stage renal disease on three times a week hemodialysis. PLAN: 1. Medication regimen reviewed and discussed. 2. Outpatient followup to be arranged. Bulmaro Hester M.D. DR: EMIR/CHEN JOB#: [id number] CC:
--- NOTE | 2019-03-04 03:34 | Consultation ---
DATE OF CONSULTATION: 02/28/2019 CARDIOLOGY CONSULTATION CONSULTING PHYSICIAN: Bulmaro Hester M.D. REASON FOR CONSULTATION: Acute congestive heart failure. HISTORY OF PRESENT ILLNESS: This is a 73-year-old female with end-stage renal disease, on hemodialysis. She was missed several dialysis sessions due to transportation issues. As a result, she has developed worsening confusion and shortness of breath with some edema. She was admitted to the hospital last night. I have been asked to assist with cardiovascular care. The patient has not been compliant with some medications either it seems. She is quite a poor historian, however. PAST MEDICAL HISTORY: End-stage renal disease, anemia of chronic kidney disease, hypertensive heart disease, hyperlipidemia, history of left upper extremity AV fistula, and type 2 diabetes mellitus. FAMILY HISTORY: Notable for hypertension. MEDICATIONS: Reviewed and reconciled. ALLERGIES: None known. SOCIAL HISTORY: Negative for smoking, alcohol, or substance abuse. REVIEW OF SYSTEMS: A 10-point review of systems performed. All systems negative other than noted above. PHYSICAL EXAMINATION: VITAL SIGNS: Blood pressure 137/73, pulse 100, respiratory rate 18, afebrile, and oxygen saturation on room air 98%. HEENT: Conjunctivae pink. Sclerae are anicteric. Oropharynx clear. NECK: Supple. Jugular venous pressure is slightly elevated. LUNGS: breath sounds. CARDIAC: Regular rhythm and rate. Normal S1 and S2 with a fourth heart sound. ABDOMEN: Soft. No bruits. No ascites. EXTREMITIES: With trace dependent edema. LABORATORY DATA: Admission laboratories have been reviewed. IMPRESSION: 1. Acute on chronic diastolic congestive heart failure. 2. Metabolic encephalopathy. 3. End-stage renal disease with noncompliance to hemodialysis sessions. 4. Hypertensive heart disease. 5. History of hyperlipidemia. 6. Mildly elevated glucose with underlying type 2 diabetes. PLAN: 1. Hemodialysis with ultrafiltration. 2. Stepwise titration of anti-failure and antihypertensive medications. 3. Cautious to avoid orthostasis with resumption of dialysis and ultrafiltration. 4. Trend natriuretic peptide assay. 5. Check A1c, TSH, and lipid panel with LDL goal less than 70. Bulmaro Hester M.D. DR: SAYRA JOB#: [id number] CC:
--- NOTE | 2019-03-04 10:52 | Discharge Summary ---
Discharge Summary Discharge Summary _ DATE OF ADMISSION: 02/27/2019 DATE OF DISCHARGE: 03/02/2019 DISCHARGED BY: Dr. Freddy Quevedo CONSULTANTS: Dr. Bulmaro Stringer BRIEF HOSPITAL COURSE: Patient is a 73-year-old female. She has history of end-stage renal disease and hypertension, who presented from home because of missed dialysis. According to family members. There has been problems with transportation. The patient was unable to get hemodialysis. May be an issue with [facility]. Upon evaluation at the ED, EMS reported patient had not had dialysis. Caretakers noted increased agitation over the past few days. Patient had missed at least 3 episodes of hemodialysis. According to patient's brother, last hemodialysis was on February 20 while she was at [facility]. Blood work showed WBC of 11. Hemoglobin 8, hematocrit 24. Potassium was 4.1. BUN 86, creatinine 11. Troponin negative. proBNP 2661. EKG showed sinus rhythm, with normal axis, normal intervals, no ST segment changes. Mild peaking of T waves in V2 only. Chest x-ray did not show any consolidation, effusion, no acute cardiopulmonary ED disease, no evidence of acute fluid overload. She was then admitted due to missed hemodialysis. Inpatient hemodialysis was ordered. She was given Epogen for anemia. 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 She was continued on outpatient medication regimen. Per nephrology, hold hydralazine predialysis to mitigate hypotension. [employer] was consulted. Patient has history of acute and chronic diastolic congestive heart failure. Echocardiogram done. Patient had adequate blood pressure control. Metabolic encephalopathy resolved with resumption of hemodialysis and ultrafiltration. She was given physical therapy. Patient was eventually discharged to [facility]. To continue hemodialysis at facility while awaiting for [facility] to process. FINAL DIAGNOSES: Metabolic encephalopathy, resolved with resumption of hemodialysis and ultrafiltration Hypertensive heart disease with overall adequate blood pressure control Acute on chronic diastolic congestive heart failure, now compensated with ultrafiltration End-stage renal on hemodialysis 3 times a week Anemia of chronic disease Hypertensive nephrosclerosis Old CVA DISPOSITION: Patient was discharged to a SNF. DISCHARGE MEDICATIONS: Refer to Discharge Medication List. I have been assigned to complete a discharge summary on this account, I was not involved with the patient's management.--MULU Marroquin Jacqueline Robles NP Mar 04, 2019 10:52
--- NOTE | 2019-03-04 12:01 | Cardiology Report ---
APPROVED REPORT EXAM: Two-dimensional and M-mode echocardiogram with Doppler and color Doppler. INDICATION Congestive Heart Failure M-Mode DIMENSIONS IVSd1.3 (0.7-1.1cm)Left Atrium (MM)3.5 (1.6-4.0cm) LVDd3.0 (3.5-5.6cm)Aortic Root2.1 (2.0-3.7cm) PWd1.2 (0.7-1.1cm)Aortic Cusp Exc.1.6 (1.5-2.0cm) LVDs1.5 (2.5-4.0cm) PWs1.3 cm Normal left ventricular chamber size, systolic function and wall motion. Left ventricular ejection fraction estimated to be 65 %. Mild left ventricular hypertrophy. No evidence of pericardial effusion. All other cardiac chamber sizes are within normal limits. Focal aortic valve sclerosis with adequate cusp excursion. Thickened mitral valve leaflets with normal excursion. Mild mitral annulus and aortic root calcification. Normal pulmonic valve structure. Normal tricuspid valve structure. IVC is normal in size with physiological collapse. A color flow and spectral Doppler study was performed and revealed: No aortic regurgitation. Mild mitral regurgitation. Mitral diastolic velocities suggest mild left ventricular diastolic dysfunction (Grade I). Mild tricuspid regurgitation. Tricuspid systolic velocities suggests peak right ventricular systolic pressure of 38 mmHg, consistent with mild pulmonary hypertension. No pulmonic regurgitation present.
[2019-03-05] MEDS ORDERED: Vitamin D 50,000 units cap ORAL SCH (09:00)
== END 2019-03-02 21:00 | DRG 291 ==
LOC: EDBD 14:20 → EMR 14:50 → 4E 16:57 → EDBEDREQ 17:47
PROC: 5A1D70Z Performance of Urinary Filtration, Intermittent, Less than 6 Hours Per Day (ICD-10-PCS; principal; 2019-02-28)
DX: I13.2 Hypertensive heart and chronic kidney disease with heart failure and with stage 5 chronic kidney disease, or end stage renal disease (principal); I50.33 Acute on chronic diastolic (congestive) heart failure; N18.6 End stage renal disease; G93.41 Metabolic encephalopathy; Z91.15 Patient's noncompliance with renal dialysis; D63.1 Anemia in chronic kidney disease; Z99.2 Dependence on renal dialysis; E78.5 Hyperlipidemia, unspecified; I69.319 Unspecified symptoms and signs involving cognitive functions following cerebral infarction
CPT/HCPCS: 36415; 71045; 80053; 83540; 83550; 83880; 84484; 85025; 85610; 85730; 87081; 87340; 93005; 93306; 99285

== ENCOUNTER 2019-04-21 15:12 | Inpatient (IN) | payer MEDICARE ==
[~2019-04-21] VITALS: Ht 162.6 cm; Wt 62.1 kg
[~2019-04-21 15:12] MED LIST: ACETAMINOPHEN325 M1 ORAL; AMLODIPINE BESY10 MG ORAL; ASPIRIN81 MG ORAL; ATORVASTATIN CA40 MG ORAL; B-COMPLEX WITH1 EACH ORAL; CLONIDINE HCL0.1 MG PO; DOCUSATE SODIU100 MG ORAL; EPOGEN20000 UNI1 SUBQ; HEPARIN SO5000 UNIT2 SUBQ; HYDRALAZINE HC100 MG ORAL; NORCO 10-325 T1 EACH ORAL; PCA MORPHINE1 MG/ML IV; VITAMIN D250000 UNI1 ORAL; ZOFRAN 4 MG4 MG/2 ML IV
[2019-04-21 15:25] VITALS: BP 152/82
[2019-04-21] MEDS ORDERED: MILK OF MA400 MG/51 ORAL (16:10)
[2019-04-21] MEDS ORDERED: DULCOLAX10 MG RC (16:10)
--- NOTE | 2019-04-21 16:10 | NUR ---
ED Nurse Note: Pt arrived to the ED via gurney d/t missed scheduled dialysis x 2. On Full Code. Pt is alert, oriented x 4, can follow basic commands and able to verbalized needs. Assessed shunt on left side of the chest, patent. VSS, no signs of any respiratory distress. ERMD aware that pt is refusing IV access and blood work. Dr. Brown spoke with Dr. Le pt is okay to admit w/o blood work. Will continue to monitor.
--- NOTE | 2019-04-21 16:44 | Diagnostic Imaging Report ---
EXAM: XR Chest, 1 View CLINICAL HISTORY: SOB TECHNIQUE: Frontal view of the chest. COMPARISON: No relevant prior studies available. FINDINGS: Lungs: Reduced lung volumes with patchy bilateral pulmonary opacities. Pleural space: Unremarkable. No pneumothorax. Heart: Large cardiomediastinal silhouette. Mediastinum: See above. Bones/joints: No acute fracture. IMPRESSION: Reduced lung volumes with patchy bilateral pulmonary opacities.
--- NOTE | 2019-04-21 17:32 | Emergency Room Report ---
History of Present Illness General Chief Complaint: Abnormal Labs Source: Patient, EMS Present Illness HPI 73-year-old female presents ED for evaluation. [facility] Patient missed her last 2 dialysis sessions. States she was not feeling well so she did not go. States she feels fine at this time. Denies any dizziness or weakness. Denies chest pain or shortness of breath. Denies fevers or chills. Denies cough. No other aggravating relieving factors. Denies any other associated symptoms Allergies: Coded Allergies: No Known Allergies (Unverified , 02/27/19) Patient History Past Medical History: DM, HTN, CVA/TIA, renal disease, dialysis Past Surgical History: none Pertinent Family History: none Social History: Denies: smoking, alcohol use, drug use Now: No Immunizations: UTD Reviewed Nursing Documentation: PMH: Agreed; PSxH: Agreed Nursing Documentation-PMH Past Medical History: No History, Except For Hx Hypertension: Yes Hx Diabetes: Yes Hx Dialysis: Yes Hx Cerebrovascular Accident: Yes Review of Systems All Other Systems: negative except mentioned in HPI Physical Exam Vital Signs Date Time Temp Pulse Resp B/P (MAP) Pulse Ox O2 Delivery O2 Flow Rate FiO2 04/21/19 15:17 98.1 88 16 138/80 (99) 97 Room Air Sp02 EP Interpretation: reviewed, normal General Appearance: no apparent distress, alert, GCS 15, non-toxic Head: normocephalic, atraumatic Eyes: bilateral eye normal inspection, bilateral eye PERRL ENT: hearing grossly normal, normal pharynx, no angioedema, normal voice Neck: full range of motion, supple/symm/no masses Respiratory: chest non-tender, lungs clear, normal breath sounds, speaking full sentences Cardiovascular #1: regular rate, rhythm, no edema Cardiovascular #2: 2+ carotid (R), 2+ carotid (L), 2+ radial (R), 2+ radial (L) , 2+ dorsalis pedis (R), 2+ dorsalis pedis (L) Gastrointestinal: normal bowel sounds, non tender, soft, non-distended, no guarding, no rebound Rectal: deferred Genitourinary: normal inspection, no CVA tenderness Musculoskeletal: back normal, normal range of motion, gait/station normal, non- tender Neurologic: alert, motor strength/tone normal, oriented x3, sensory intact, responsive, speech normal Psychiatric: judgement/insight normal, memory normal, mood/affect normal, no suicidal/homicidal ideation Reflexes: 3+ bicep (R), 3+ bicep (L), 3+ tricep (R), 3+ tricep (L), 3+ knee (R) , 3+ knee (L) Skin: other - see nursing skin notes Lymphatic: no adenopathy Medical Decision Making Diagnostic Impression: Primary Impression: ESRD (end stage renal disease) on dialysis ER Course Hospital Course 73 yo F presents after missing dialysis x 2 Differential diagnoses include: WA/unstable angina, fluid overload, CHF exacerabation, hyperkalemia, uremia Clinical course Patient placed on stretcher. on color television console monitor. After initial history and physical I ordered labs, EKG, chest x-ray Refused lab draw. Wishes to be sent back to facility. Patient will not be accepted back to facility as she is not medically cleared due to missing dialysis twice. Encourage patient to stay in the hospital. Patient agreed but is refusing lab draw. She has stable vitals. asymptomatic. Is awake alert oriented x3. Has capacity to make decisions. Dr. Quevedo is aware that patient has refused lab draw Chest x-ray- cardiomegaly EKG - NSR, no acute ischemic changes interpreted by me Case discussed with Dr. Quevedo and he agreed to accept the patient to his service for further care and support I. I feel this is a highly complex case requiring extensive working including EKG/Rhythm strip, Xray/CT/US, Blood/urine lab work, repeat exams while in ED, and administration of strong opiates/narcotics for pain control, admission to hospital or close patient follow up. Diagnosis - ESRD on dialysis admitted to telemetry in serious condition EKG Diagnostic Results Rate: normal Rhythm: NSR ST Segments: no acute changes ASA given to the pt in ED: No Rhythm Strip Diag. Results EP Interpretation: yes Rhythm: NSR, no PVC's, no ectopy Chest X-Ray Diagnostic Results Chest X-Ray Diagnostic Results : Chest X-Ray Ordered: Yes # of Views/Limited/Complete: 1 View Indication: Other EP Interpretation: Yes Interpretation: no consolidation, no pneumothorax, other - cardiomegaly Impression: Other - cardiomegaly Electronically Signed by: Electronically signed by Austin Pelaez MD Last Vital Signs Date Time Temp Pulse Resp B/P (MAP) Pulse Ox O2 Delivery O2 Flow Rate FiO2 04/21/19 15:17 98.1 88 16 138/80 (99) 97 Room Air Status: improved Disposition: ADMITTED INPATIENT Condition: Serious Referrals: Freddy Quevedo MD (PCP) Austin Pelaez MD Apr 21, 2019 17:32
--- NOTE | 2019-04-21 18:08 | NUR ---
ED Nurse Note: Pt still on stable condition, no signs of any respiratory distress. Able to verbalize her needs and can follow simple commands. Verbalized feeling of hunger, sandwich given, aware. Will continue to monitor.
--- NOTE | 2019-04-21 18:27 | NUR ---
NURSE NOTES: Received report from Yoko ED RN. No med recon done, no swabs done, Yoko stated she will swab pt. Pt refusing IV and lab draw. RN contacted Dr. Quevedo for admission orders
[2019-04-21 18:35] VITALS: BP 152/84
--- NOTE | 2019-04-21 18:42 | NUR ---
ER DISCHARGE NOTE: Pt is ready to be transferred per ERMD. Pt is Alert Oriented x 4, on room air, no signs of any respiratory distress. Pt is able to verbalize her needs and able to follow basic commands. Report given to MICHAEL Alfonso. Swab samples was taken for MRSA and VRE. Pt will be transfer to telemetry. VSS.
--- NOTE | 2019-04-21 18:50 | NUR ---
NURSE NOTES: Pt transferred from ED to 221*-2 via gurney. Assisted pt to bed, assessment done, skin check, intact skin, pt is A/Ox2 self and purpose, no IV site, Left AV fistual, pt on RA, tele box on, bed in lowest position, call light within reach. Pt refusing lab draw.
--- NOTE | 2019-04-21 19:14 | NUR ---
NURSE NOTES: Notified Dr. Quevedo, pt still refusing lab draws
--- NOTE | 2019-04-21 19:29 | NUR ---
HAND-OFF: Report given to MICHAEL Manning. Plan of care endorsed.
--- NOTE | 2019-04-21 19:30 | NUR ---
NURSE NOTES: Received report from Elfego Shirley RN. Patient in bed AAO X2 with no complaints of acute pain or discomfort at this time. Kept clean, dry, and comfortable in bed. Patient is on bedrest and is unable to stand or walk alone; offered bedpan or cleaned QS and PRN when soiled. Placed on continuous cardiac monitoring per protocol. No IV line at this time d/t refusal stating "i dont want to get poked". will try to establish access later on during shift. Safety precaution in place; siderails X3 up, call light within reach, bed in lowest position, brakes and alarm on at all times. Needs and wants anticipated and attended. Will continue plan of care. New orders received and carried out per Aries Quevedo
[2019-04-21 20:00] VITALS: BP 157/82
[2019-04-21] MEDS ORDERED: Milk of Magnesia 30ml Ud ORAL PRN (20:00)
[2019-04-21] MEDS: HydrALAZINE 50mg tab ORAL SCH (21:24)
[2019-04-21] MEDS: Atorvastatin 80mg tab ORAL SCH (21:25)
[2019-04-21] MEDS ORDERED: Sodium Polystyrene Sulfonate 15gm Powder ORAL ONE (22:15)
--- NOTE | 2019-04-21 22:47 | NUR ---
HAND-OFF: Report given to Pili Lim RN. Patient in bed asleep with no S/S of distress noted. Endorsed plan of care.
--- NOTE | 2019-04-21 22:55 | NUR ---
NURSE NOTES: received report from Nigel RODRIGUEZ. Pt is asleep. NO acute distress noted. Bed is on the lowest position and bed alarm is on. call light is within reach.
--- NOTE | 2019-04-21 23:08 | NUR ---
NURSE NOTES: Call MD Stringer at and notified that there is an order for Keaxelate but pt refused the labs (No K level). MD Stringer confirmed to give the meds x1 now. Will follow the orders.
[2019-04-22] VITALS: BP 132/69
[2019-04-22 04:00] VITALS: BP 147/72
[2019-04-22] MEDS: HydrALAZINE 50mg tab ORAL SCH ×3 (05:54→21:39)
--- NOTE | 2019-04-22 07:08 | NUR ---
HAND-OFF: Report given to Naty RODRIGUEZ.
--- NOTE | 2019-04-22 07:18 | NUR ---
NURSE NOTES: Received report from MICHAEL Bradley. Pt in bed, awake, talkative, confused, alert to self, refusing am lab draw, no complaints of pain, no apparent respiratory distress noted, bed in lowest position, call light within reach.
[2019-04-22 08:00] VITALS: BP 140/66
[2019-04-22] MEDS: Docusate 100mg cap ORAL SCH ×2 (08:25→17:08)
[2019-04-22] MEDS: Aspirin Baby 81mg ORAL SCH (08:25)
--- NOTE | 2019-04-22 10:15 | History and Physical Report ---
DATE OF ADMISSION: 04/21/2019 CHIEF COMPLAINT: End-stage renal disease, altered mental status, hypertension, and prior history of stroke. HISTORY OF PRESENT ILLNESS: The patient is a 73-year-old female well known to me. She currently resides at a correction facility. She was transferred there after she refused hemodialysis sessions for unclear reasons. According to staff at the penitentiary, the patient had been refusing to go. She did not give any specific reasons as to why she was refusing. She was sent to the ER. On evaluation there, she refused any laboratory work, but she was agreeable to admission and for possible dialysis. There are no reports of any fevers or chills. No headaches. No chest pain. No shortness of breath. PAST MEDICAL HISTORY: As above. PAST SURGICAL HISTORY: Includes history of PermCath. CURRENT MEDICATIONS: Reconciled and reviewed. ALLERGIES: None. FAMILY HISTORY: None. SOCIAL HISTORY: There is no known history of tobacco, ethanol, or drugs. REVIEW OF SYSTEMS: GENERAL: No fevers or chills. HEENT: No headaches or visual changes. CARDIOPULMONARY: No chest pain or shortness of breath. GASTROINTESTINAL: No nausea or vomiting. GENITOURINARY: No urgency or frequency. MUSCULOSKELETAL: No joint pain or swelling. NEUROLOGICAL: No evidence of seizures. PHYSICAL EXAMINATION: VITAL SIGNS: Temperature 97.4, pulse 81, respirations 18, and blood pressure 140/66. GENERAL: The patient is a well-developed female. She is awake and alert. She is somewhat guarded and paranoid. HEENT: Her pupils are equal, round, and reactive to light. Oropharynx clear. NECK: Supple. HEART: Regular rate and rhythm. LUNGS: Clear. ABDOMEN: Soft, nontender, and nondistended. EXTREMITIES: Without clubbing, cyanosis, or edema. LABORATORY DATA: Labs are pending. ASSESSMENT: This is a 73-year-old female with history of end-stage renal disease on chronic hemodialysis, hypertension, history of stroke, and questionable history of psychosis, admitted with complaints of missed dialysis. PLAN: Renal consultation is pending. Psychiatric consultation has also been obtained. We will follow up pending labs. Hemodialysis is deferred to the consulting educational advisor. Freddy Quevedo M.D. DR: JESSICA JOB#: [id number] CC:
--- NOTE | 2019-04-22 10:29 | NUR ---
CASE MANAGEMENT: INITIAL REVIEW 73 YO F BIBA FROM [facility] CC: MISSED HD X2 DAYS PMHx: DM, HTN, CVA/TIA, renal disease, dialysis SI:ESRD. T 98.1 HR 88 RR 15 B/P 138/80 SATS 97% ON RA LABS: NONE IS: KAYEXALATE PO X1 CXR IMPRESSION: Reduced lung volumes with patchy bilateral pulmonary opacities. PATIENT ADMITTED TO [facility] 04/21/2019 @ 1625 DCP: PATIENT TO BE DISCHARGED TO SNF ONCE MEDICALLY CLEARED. PLAN OF CARE: RENAL CONSULT
[2019-04-22] MEDS ORDERED: Bisacodyl EC 5mg tab ORAL SCH (10:45)
[2019-04-22] MEDS ORDERED: Sodium Polystyrene Sulfonate 15gm Powder ORAL SCH (10:45)
[2019-04-22 11:25] VITALS: BP 146/71
--- NOTE | 2019-04-22 11:46 | NUR ---
NURSE NOTES: Called [facility] for scheduled Hemodialysis 04/23/2019 6a-6p Addendum: 04/22/19 at 1156 by ANTONIO BECKWITH RN NURSE NOTES: Obtained consent for Hemodialysis, filed in chart
[2019-04-22 16:00] VITALS: BP 143/73
--- NOTE | 2019-04-22 18:00 | Consultation ---
DATE OF CONSULTATION: 04/22/2019 NOTE: "POOR AUDIO QUALITY" CONSULTING PHYSICIAN: Dylon Stringer M.D. CHIEF COMPLAINT AND REASON FOR HOSPITALIZATION: The patient is a 73-year-old lady with end-stage renal disease, status post missed outpatient dialysis. HISTORY OF PRESENT ILLNESS: The patient has history of CVA with left-sided weakness, hypertension, and end-stage renal disease. She missed dialysis recently, has been having psychiatric issues, and was refusing to be dialyzed. She is nonambulatory with left-sided weakness. She is a poor historian. She lives in an ECF. PAST SURGICAL HISTORY: AV access of left arm. HABITS: She is a nondrinker and nonsmoker as far as prior notes. ALLERGIES: None known. MEDICATIONS: Include ergocalciferol 50,000 units weekly; aspirin 81 mg daily; atorvastatin 80 mg two tablets nightly; DSS 100 mg b.i.d.; Tylenol p.r.n.; [place] p.r.n.; heparin 5000 q.12 hours; hydralazine 100 mg q.8 h., hold for low blood pressure; amlodipine 10 mg daily; MOM, Dulcolax suppository, and Fleet Enema p.r.n. SYSTEM REVIEW: The patient is historian. PHYSICAL EXAMINATION: GENERAL: The patient is a thin elderly lady, lying in bed, in no acute distress. VITAL SIGNS: Temperature 97.4, pulse 81, respiratory rate 18, and blood pressure 140/66. HEAD, EYES, EARS, NOSE, THROAT: Sclerae are nonicteric. Ocular motions intact in all directions. Oral mucosa moist. NECK: No adenopathy or thyroid enlargement. LUNGS: Clear. HEART: Regular rhythm. I hear no murmur. ABDOMEN: Soft without organomegaly or masses. EXTREMITIES: No edema, cyanosis, or clubbing. There is a left upper arm AV fistula with a good thrill. Left arm is partially contracted. NEUROLOGIC: She has left hemiparesis with left-sided weakness. She is alert and responsive. IMPRESSION: 1. End-stage renal disease. 2. Status post noncompliance and refusal for outpatient dialysis. 3. Hypertension. 4. Cognitive impairment, likely secondary to CVA. 5. Question of psychiatric disease. 6. Hyperlipidemia. 7. Lack of lab results due to refusal to have lab drawn. So far in this admission, abnormal chest x-ray with reduced lung volumes and patchy bilateral pulmonary opacities. PLAN: I have scheduled her for dialysis and through dialysis, she will be on Kayexalate . Orders have been reviewed for end-stage renal disease. Dr. Quevedo is . Dylon Stringer M.D. DR: Darlene JOB#: [id number] CC:
--- NOTE | 2019-04-22 19:12 | NUR ---
HAND-OFF: Report given to MICHAEL Manning. Pt stable, endorsed plan of care.
--- NOTE | 2019-04-22 19:20 | NUR ---
NURSE NOTES: Received report from Elfego Shirley RN. Patient in bed AAO X2 with no complaints of acute pain or discomfort at this time. Kept clean, dry, and comfortable in bed. Patient is on bedrest and is unable to stand or walk alone; offered bedpan or cleaned QS and PRN when soiled. Placed on continuous cardiac monitoring per protocol. No IV line at this time d/t refusa. MD aware. Safety precaution in place; siderails X3 up, call light within reach, bed in lowest position, brakes and alarm on at all times. Needs and wants anticipated and attended. Will continue plan of care. HD tomorrow 04/23/19 with [facility]
[2019-04-22 20:00] VITALS: BP 166/81
[2019-04-22] MEDS: HYDROcodone/Acetamin 10/325 tab ORAL PRN (21:39)
[2019-04-22] MEDS: Atorvastatin 80mg tab ORAL SCH (21:39)
[2019-04-22] MEDS: Heparin 5000 units/ml inj SUBQ SCH (21:40)
--- NOTE | 2019-04-22 22:30 | Consultation ---
DATE OF CONSULTATION: 04/22/2019 CARDIOLOGY CONSULTATION CONSULTING PHYSICIAN: Bulmaro Hester M.D. REQUESTING PHYSICIAN: Freddy Quevedo M.D. REASON FOR CONSULTATION: Acute congestive heart failure. HISTORY OF PRESENT ILLNESS: This 73-year-old female with end-stage renal disease, on hemodialysis. Missed outpatient dialysis sessions. She was agitated and did not want to go to the session. She has psychiatric problems due to dementia that precipitated this attack and is usually nonambulatory due to left hemiparesis. On arrival to the emergency room, her blood pressure was slightly elevated and she had clinical and radiographic evidence of pulmonary venous congestion and I have been asked to assist with further cardiovascular care. Records are reviewed from the historical data. PAST MEDICAL HISTORY: CVA, left hemiparesis, dementia with agitation, hypertension with hypertensive heart disease, end-stage renal disease, hyperlipidemia, constipation, left upper extremity AV fistula, Vitamin D deficiency. ALLERGIES: None. MEDICATIONS: Reviewed and reconciled. SOCIAL HISTORY: Per record, she is nonsmoker and there is no history of alcohol abuse. She presently resides in a [facility] facility. FAMILY HISTORY: Not known. REVIEW OF SYSTEMS: Otherwise not obtainable. PHYSICAL EXAMINATION: VITAL SIGNS: Blood pressure in the emergency room yesterday was 138/80, presently blood pressure 140/66; heart rate 81; respiratory rate 18; afebrile. Monitored rhythm, sinus. NECK: Jugular venous pressure is slightly elevated. LUNGS: With few rales. CARDIAC: Regular rhythm and rate. Normal S1, S2 with a fourth heart sound. ABDOMEN: Soft, nontender with no bruits. EXTREMITIES: Good pulses with no edema. Left hemiparesis and there is a palpable bruit over the left upper extremity dialysis access. LABORATORY DATA: The patient has refused lab studies today. Her chest x-ray on presentation revealed mild pulmonary venous congestion, cardiomegaly. EKG with sinus rhythm and nonspecific ST change. IMPRESSION: 1. Acute on chronic diastolic congestive heart failure and volume overload due to missed dialysis and ultrafiltration session. 2. End-stage renal disease, on hemodialysis. 3. Metabolic encephalopathy in the setting of underlying cerebrovascular disease with dementia and agitation. 4. CVA with left hemiparesis. 5. History of hyperlipidemia, on statin therapy. 6. Hypertensive heart disease with high normal blood pressure range at this time. PLAN: 1. Cardiac monitoring. 2. Attempt laboratory draw. 3. Hemodialysis with ultrafiltration. 4. Titrate antihypertensive regimen. 5. Check lipid panel and CK level and readjust statin dosing accordingly. 6. Anti-platelet therapy with aspirin. Bulmaro Hester M.D. DR: SAMSON JOB#: [id number] CC:
[2019-04-23] VITALS (7 sets, daily range): BP systolic 133–168; BP diastolic 66–90
[2019-04-23] MEDS: HydrALAZINE 50mg tab ORAL SCH ×3 (05:31→22:00)
--- NOTE | 2019-04-23 06:52 | General Progress Note ---
Assessment/Plan Problem List: (1) Hypertensive nephrosclerosis ICD Codes: I12.9 - Hypertensive chronic kidney disease with stage 1 through stage 4 chronic kidney disease, or unspecified chronic kidney disease SNOMED: 712329556 (2) Anemia in chronic kidney disease ICD Codes: N18.9 - Chronic kidney disease, unspecified; D63.1 - Anemia in chronic kidney disease SNOMED: 137894117 (3) CVA, old, cognitive deficits ICD Codes: I69.319 - Unspecified symptoms and signs involving cognitive functions following cerebral infarction SNOMED: 83451095, 877080808, 078458451, 836942536 (4) ESRD (end stage renal disease) on dialysis ICD Codes: N18.6 - End stage renal disease; Z99.2 - Dependence on renal dialysis SNOMED: 111663421 (5) Dementia ICD Codes: F03.90 - Unspecified dementia without behavioral disturbance SNOMED: 13381141 Status: stable, not improved Assessment/Plan: await labs HD per renal psych eval pending- ?competent to refuse HD. Subjective ROS Limited/Unobtainable: No Constitutional: Reports: no symptoms HEENT: Reports: no symptoms Cardiovascular: Reports: no symptoms Respiratory: Reports: no symptoms Gastrointestinal/Abdominal: Reports: no symptoms Genitourinary: Reports: no symptoms Neurologic/Psychiatric: Reports: no symptoms Endocrine: Reports: no symptoms Hematologic/Lymphatic: Reports: no symptoms Allergies: Coded Allergies: No Known Allergies (Unverified , 02/27/19) All Systems: reviewed and negative except above Subjective continues to refuses labs and HD. no cp/sob. might agree to labs this morning. Objective Last 24 Hour Vital Signs Date Time Temp Pulse Resp B/P (MAP) Pulse Ox O2 Delivery O2 Flow Rate FiO2 04/23/19 05:31 139/81 04/23/19 04:00 98.4 102 19 139/81 (100) 96 04/23/19 00:00 98.0 106 18 133/66 (88) 95 04/23/19 00:00 101 04/22/19 21:39 164/83 04/22/19 21:00 Room Air 04/22/19 20:00 98.6 96 18 166/81 (109) 96 04/22/19 16:02 84 04/22/19 16:00 98.7 87 18 143/73 (96) 97 04/22/19 14:00 143/73 04/22/19 11:47 85 04/22/19 11:25 98.7 87 20 146/71 (96) 97 04/22/19 08:26 Room Air 04/22/19 08:25 81 140/66 04/22/19 08:00 97.4 81 18 140/66 (90) 98 04/22/19 07:39 84 Intake and Output 04/22/19 04/23/19 18:59 06:59 Intake Total 600 ml Balance 600 ml Intake Oral 600 ml # Voids 2 2 # Bowel Movements 1 Height (Feet): 5 Height (Inches): 4.00 Weight (Pounds): 140 General Appearance: WD/WN, alert Neck: supple Cardiovascular: regular rhythm Respiratory/Chest: chest wall non-tender, lungs clear, normal breath sounds, no respiratory distress Abdomen: normal bowel sounds, non tender, soft, no organomegaly Edema: no edema noted Arm (L), no edema noted Arm (R), no edema noted Leg (L), no edema noted Leg (R), no edema noted Pedal (L), no edema noted Pedal (R), no edema noted Generalized Neurologic: communications engineer II-XII grossly normal, alert, responsive Freddy Quevedo MD Apr 23, 2019 06:52
[2019-04-23] MEDS: HYDROcodone/Acetamin 10/325 tab ORAL PRN ×3 (07:07→15:50)
--- NOTE | 2019-04-23 07:20 | NUR ---
NURSE NOTES: Received report from Nigel RODRIGUEZ. Pt alert and oriented x3. No c/o pain. No acute distress noted. IV site noted. AV shunt in left upper arm with thrill and bruit noted. Bed in lowest position and locked. Call light within easy reach.On room air. Denied sob. Will continue to plan of care.
--- NOTE | 2019-04-23 07:25 | NUR ---
HAND-OFF: Report given to Gin Roldan RN. Patient in bed asleep with no S/S of distress. Endorsed plan of care.
[2019-04-23 07:29] LABS: BASOPHILS % (AUTO) 0.8 % (0.0-2.0); EOSINOPHILS % (AUTO) 1.7 % (0.0-3.0); HEMATOCRIT 28.7 % (37.0-47.0); HEMOGLOBIN 9.5 G/DL (12.0-16.0); LYMPHOCYTES % (AUTO) 12.5 % (20.0-45.0); MEAN CORPUSCULAR VOLUME 87 FL (80-99); MONOCYTES % (AUTO) 5.3 % (1.0-10.0); NEUTROPHILS % (AUTO) 79.7 % (45.0-75.0); PLATELET COUNT 196 K/UL (150-450); RED CELL DISTRIBUTION WIDTH 14.5 % (11.6-14.8); WHITE BLOOD COUNT 14.4 K/UL (4.8-10.8)
[2019-04-23 08:21] LABS: ALANINE AMINOTRANSFERASE 21 U/L (12-78); ALBUMIN 3.4 G/DL (3.4-5.0); ALBUMIN/GLOBULIN RATIO 0.9 (1.0-2.7); ALKALINE PHOSPHATASE 82 U/L (46-116); ANION GAP 14 mmol/L (5-15); ASPARTATE AMINO TRANSFERASE 22 U/L (15-37); BILIRUBIN,TOTAL 0.3 MG/DL (0.2-1.0); BLOOD UREA NITROGEN 51 mg/dL (7-18); CALCIUM 8.4 MG/DL (8.5-10.1); CARBON DIOXIDE 22 MMOL/L (21-32); CHLORIDE 105 MMOL/L (98-107); CHOLESTEROL 98 MG/DL (< 200); CREATINE KINASE 69 U/L (26-308); CREATININE 7.9 MG/DL (0.55-1.30); HDL CHOLESTEROL 32 MG/DL (40-60); POTASSIUM 4.1 MMOL/L (3.5-5.1); SODIUM 141 MMOL/L (136-145); TRIGLYCERIDES 135 MG/DL (30-150)
[2019-04-23] MEDS ORDERED: Vitamin D 50,000 units cap ORAL SCH (09:00)
[2019-04-23] MEDS: Docusate 100mg cap ORAL SCH ×2 (09:45→17:03)
[2019-04-23] MEDS: Aspirin Baby 81mg ORAL SCH (09:46)
[2019-04-23] MEDS: Heparin 5000 units/ml inj SUBQ SCH ×2 (09:46→21:00)
[2019-04-23] MEDS ORDERED: Heparin Sod 1000 units/ml 10ml IV SCH (10:45)
--- NOTE | 2019-04-23 13:58 | Nephrology Progress Note ---
Assessment/Plan Problem List: (1) ESRD (end stage renal disease) on dialysis (2) Anemia in chronic kidney disease (3) Hypertensive nephrosclerosis (4) Dementia (5) CVA, old, cognitive deficits Plan HD arranged, lab reviewed Subjective Constitutional: Reports: weakness HEENT: Reports: no symptoms Genitourinary: Reports: incontinence Neurologic/Psychiatric: Reports: pre-existing deficit Objective Objective Last 24 Hour Vital Signs Date Time Temp Pulse Resp B/P (MAP) Pulse Ox O2 Delivery O2 Flow Rate FiO2 04/23/19 12:00 102 04/23/19 12:00 98.4 95 18 156/73 (100) 97 04/23/19 09:45 102 162/89 04/23/19 09:00 Room Air 04/23/19 08:00 101 04/23/19 08:00 97.3 102 20 162/89 (113) 96 04/23/19 05:31 139/81 04/23/19 04:00 98.4 102 19 139/81 (100) 96 04/23/19 04:00 107 04/23/19 00:00 98.0 106 18 133/66 (88) 95 04/23/19 00:00 101 04/22/19 21:39 164/83 04/22/19 21:00 Room Air 04/22/19 20:00 98.6 96 18 166/81 (109) 96 04/22/19 20:00 89 04/22/19 16:02 84 04/22/19 16:00 98.7 87 18 143/73 (96) 97 04/22/19 14:00 143/73 Intake and Output 04/22/19 04/23/19 19:00 07:00 Intake Total 600 ml Balance 600 ml Intake Oral 600 ml # Voids 2 2 # Bowel Movements 1 Laboratory Tests 04/23/19 06:58: White Blood Count 14.4H, Red Blood Count 3.30L, Hemoglobin 9.5L, Hematocrit 28.7L, Mean Corpuscular Volume 87, Mean Corpuscular Hemoglobin 28.8, Mean Corpuscular Hemoglobin Concent 33.1, Red Cell Distribution Width 14.5, Platelet Count 196, Mean Platelet Volume 5.7L, Neutrophils (%) (Auto) 79.7H, Lymphocytes (%) (Auto) 12.5L, Monocytes (%) (Auto) 5.3, Eosinophils (%) (Auto) 1.7, Basophils (%) (Auto) 0.8, Sodium Level 141, Potassium Level 4.1, Chloride Level 105, Carbon Dioxide Level 22, Anion Gap 14, Blood Urea Nitrogen 51H, Creatinine 7.9H, Estimat Glomerular Filtration Rate , Glucose Level 102, Calcium Level 8.4L , Total Bilirubin 0.3, Aspartate Amino Transf (AST/SGOT) 22, Alanine Aminotransferase (ALT/SGPT) 21, Alkaline Phosphatase 82, Total Creatine Kinase 69, Total Protein 7.2, Albumin 3.4, Globulin 3.8, Albumin/Globulin Ratio 0.9L, Triglycerides Level 135, Cholesterol Level 98, LDL Cholesterol 37, HDL Cholesterol 32L, Cholesterol/HDL Ratio 3.1L, Thyroid Stimulating Hormone (TSH) 0.942 Height (Feet): 5 Height (Inches): 4.00 Weight (Pounds): 140 General Appearance: no apparent distress, alert, confused EENT: normal ENT inspection Neck: normal alignment Cardiovascular: normal rate Respiratory/Chest: lungs clear Abdomen: non tender, soft Extremities: no edema Neurologic: motor weakness, disoriented Dylon Stringer MD Apr 23, 2019 13:58
[2019-04-23] MEDS ORDERED: FLEET ENEMA133 ML RECTAL (14:58)
--- NOTE | 2019-04-23 17:25 | NUR ---
NURSE NOTES:WOUND CARE NOTES:Pt [presented on admission with hyperpigmentation from previous pressure injury Sacrum. NO erythema noted. Both heels are soft but blanchable. No other skin concerns noted. Tx.Plan: Apply Moisture Barrier Paste to buttocks . Cover with Optifoam drsg. Change every 3 days and prn. Apply Cavilon Skin Barrier to both heels. Cover each heel with Optifoam drsg. Change every 7 days and prn. Reposition at least every 2hours or as tolerated. Off-load heels with pillow.
--- NOTE | 2019-04-23 19:22 | Cardiology Report ---
APPROVED REPORT EKG Measurement Heart [id number] MA [id number] Normal sinus rhythm Possible Left atrial enlargement Borderline ECG
--- NOTE | 2019-04-23 19:32 | NUR ---
HAND-OFF: Report given to Darling RODRIGUEZ. Pt remains stable.
--- NOTE | 2019-04-23 20:15 | NUR ---
NURSE NOTES: Pt received from MICHAEL Farias alert and oriented x3 with moments of forgetfulness, HD nurse at bedside for scheduled hemodialysis. No IV site, pt continues to refuse IV insertion. Bed in lowest position, bed alarm on.
[2019-04-23] MEDS: Atorvastatin 80mg tab ORAL SCH (21:00)
[2019-04-23] MEDS: Epoetin Alfa-EPBX(ESRD on dialysis)4000 units/ml vial SUBQ SCH (22:31)
[2019-04-24] VITALS: BP 150/71
--- NOTE | 2019-04-24 | NUR ---
NURSE NOTES: Patient is asleep but arousable by voice. Denies pain at this time. Will continue to monitor.
--- NOTE | 2019-04-24 01:00 | Progress Note ---
DATE: 04/23/2019 CARDIOLOGY PROGRESS NOTE SUBJECTIVE: The patient has refused laboratory draws. Blood pressure parameters are stable. Monitored rhythm sinus and sinus tachycardia. Hemodialysis with ultrafiltration has been arranged. OBJECTIVE: VITAL SIGNS: Blood pressure 156/73, heart rate 95 to 102, respiratory rate 18, and afebrile. NECK: Jugular venous pressure is slightly elevated. LUNGS: Diminished breath sounds. CARDIAC: Regular rhythm and rate. Normal S1 and S2 with a fourth heart sound. ABDOMEN: Soft. EXTREMITIES: No edema. LABORATORY DATA: Cultures are negative. White count 14.4 and hemoglobin 9.5. BUN 51, creatinine 7.9, TSH is 0.9, and cholesterol total 98. IMPRESSION: 1. Very low cholesterol parameters on high-dose atorvastatin. 2. Hypertensive heart disease with labile blood pressure, likely due to mood, sinus tachycardia as well related to mood. 3. End-stage renal disease, on hemodialysis. 4. Acute on chronic diastolic congestive heart failure due to missed dialysis with an ultrafiltration. 5. CVA with left hemiparesis. PLAN: 1. Hemodialysis with ultrafiltration. 2. Decrease dose of atorvastatin. 3. Titrate antihypertensive. 4. Observe for orthostasis. 5. Psychiatric followup. 6. Add low-dose beta-franck. Bulmaro Hester M.D. DR: URVASHI JOB#: [id number] CC:
[2019-04-24] MEDS: HYDROcodone/Acetamin 10/325 tab ORAL PRN ×4 (01:39→13:54)
[2019-04-24 04:00] VITALS: BP 141/79
--- NOTE | 2019-04-24 04:00 | NUR ---
NURSE NOTES: Patient has an episode of 6 beats of vtach at 0344. Patient is asleep but arousable by voice. VSS. Left a voicemail for Dr. Hester regarding this matter; awaiting call back. Will continue to monitor.
--- NOTE | 2019-04-24 05:16 | NUR ---
NURSE NOTES: Dr. Quevedo at bedside. Endorsed episode of 6 beats of vtach, per MD continue to monitor, no new orders.
[2019-04-24] MEDS: HydrALAZINE 50mg tab ORAL SCH ×4 (06:00→22:33)
--- NOTE | 2019-04-24 06:41 | NUR ---
NURSE NOTES: Patient states no relief with Girard. Explained to the patient that pain medication will take effect in a certain amount of time. Will continue to monitor.
--- NOTE | 2019-04-24 07:19 | NUR ---
HAND-OFF: Report given to Lawrence RODRIGUEZ. Endorsed plan of care.
--- NOTE | 2019-04-24 07:25 | NUR ---
NURSE NOTES: HANDOFF RECEIVED FROM MICHAEL CHILD. PATIENT RECEIVED AWAKE AND ALERT AND ABLE TO MAKE NEEDS KNOWN. NO ACUTE SIGNS OF DISTRESS NOTED. BED IN THE LOW AND LOCKED POSITION, WITH CALL LIGHT WITHIN REACH. WILL CONTINUE TO MONITOR.
[2019-04-24 08:00] VITALS: BP 153/74
[2019-04-24] MEDS: Metoprolol Succinate XL 25mg tab ORAL SCH (09:04)
[2019-04-24] MEDS: Docusate 100mg cap ORAL SCH ×2 (09:04→18:00)
[2019-04-24] MEDS: Aspirin Baby 81mg ORAL SCH (09:05)
[2019-04-24] MEDS: Heparin 5000 units/ml inj SUBQ SCH ×2 (09:08→21:33)
--- NOTE | 2019-04-24 09:57 | General Progress Note ---
Assessment/Plan Problem List: (1) Hypertensive nephrosclerosis ICD Codes: I12.9 - Hypertensive chronic kidney disease with stage 1 through stage 4 chronic kidney disease, or unspecified chronic kidney disease SNOMED: 563226016 (2) Anemia in chronic kidney disease ICD Codes: N18.9 - Chronic kidney disease, unspecified; D63.1 - Anemia in chronic kidney disease SNOMED: 207125530 (3) CVA, old, cognitive deficits ICD Codes: I69.319 - Unspecified symptoms and signs involving cognitive functions following cerebral infarction SNOMED: 18995880, 605922347, 888258562, 350185435 (4) ESRD (end stage renal disease) on dialysis ICD Codes: N18.6 - End stage renal disease; Z99.2 - Dependence on renal dialysis SNOMED: 147791017 (5) Dementia ICD Codes: F03.90 - Unspecified dementia without behavioral disturbance SNOMED: 65594518 Status: stable, not improved Assessment/Plan: repeat cbc check blood culture and cxr ua cs- if pt allows HD per renal psych eval pending- ?competent to refuse HD. Subjective ROS Limited/Unobtainable: No Constitutional: Reports: malaise, weakness HEENT: Reports: no symptoms Cardiovascular: Reports: no symptoms Respiratory: Reports: no symptoms Gastrointestinal/Abdominal: Reports: no symptoms Genitourinary: Reports: no symptoms Neurologic/Psychiatric: Reports: no symptoms Endocrine: Reports: no symptoms Hematologic/Lymphatic: Reports: no symptoms Allergies: Coded Allergies: No Known Allergies (Unverified , 02/27/19) All Systems: reviewed and negative except above Subjective s/p HD yesterday. no events. labs noted. elevated wbc?no fever or chills. no cough or diarrhea. Objective Last 24 Hour Vital Signs Date Time Temp Pulse Resp B/P (MAP) Pulse Ox O2 Delivery O2 Flow Rate FiO2 04/24/19 09:05 101 153/74 04/24/19 09:04 101 153/74 04/24/19 08:00 98.8 101 20 153/74 (100) 97 04/24/19 04:01 108 04/24/19 04:00 97.6 105 17 141/79 (99) 98 04/24/19 03:26 105 04/24/19 00:00 97.6 114 16 150/71 (97) 98 04/23/19 23:36 117 04/23/19 22:00 137/90 04/23/19 21:00 Room Air 04/23/19 20:00 97.9 107 17 137/90 (106) 98 04/23/19 20:00 98 04/23/19 16:00 103 04/23/19 15:48 98.5 103 18 168/84 (112) 96 04/23/19 15:05 156/73 04/23/19 12:00 102 04/23/19 12:00 98.4 95 18 156/73 (100) 97 Intake and Output 04/23/19 04/24/19 18:59 06:59 Intake Total 120 ml Balance 120 ml Intake Oral 120 ml # Voids 2 # Bowel Movements 2 1 Height (Feet): 5 Height (Inches): 4.00 Weight (Pounds): 142 Objective General Appearance: WD/WN, alert Neck: supple Cardiovascular: regular rhythm Respiratory/Chest: chest wall non-tender, lungs clear, normal breath sounds, no respiratory distress Abdomen: normal bowel sounds, non tender, soft, no organomegaly Edema: no edema noted Arm (L), no edema noted Arm (R), no edema noted Leg (L), no edema noted Leg (R), no edema noted Pedal (L), no edema noted Pedal (R), no edema noted Generalized Neurologic: remote recruiter II-XII grossly normal, alert, responsive Freddy Quevedo MD Apr 24, 2019 09:57
[2019-04-24 11:20] LABS: BASOPHILS % (AUTO) 0.3 % (0.0-2.0); EOSINOPHILS % (AUTO) 0.2 % (0.0-3.0); HEMATOCRIT 28.1 % (37.0-47.0); HEMOGLOBIN 9.4 G/DL (12.0-16.0); LYMPHOCYTES % (AUTO) 9.5 % (20.0-45.0); MEAN CORPUSCULAR VOLUME 86 FL (80-99); NEUTROPHILS % (AUTO) 83.9 % (45.0-75.0); PLATELET COUNT 195 K/UL (150-450); RED BLOOD COUNT 3.27 M/UL (4.20-5.40); RED CELL DISTRIBUTION WIDTH 13.7 % (11.6-14.8); WHITE BLOOD COUNT 15.6 K/UL (4.8-10.8)
[2019-04-24 12:00] VITALS: BP 148/70
--- NOTE | 2019-04-24 12:06 | NUR ---
RD ASSESSMENT & RECOMMENDATIONS SEE CARE ACTIVITY FOR COMPLETE ASSESSMENT DAILY ESTIMATED NEEDS: Needs based on Renal, HD/ 62kg 25-30 kcals/kg 8455-3100 total kcals 1.2-1.8 g protein/kg 74-1736 g total protein 20-22 mL/kg 3093-7790 total fluid mLs NUTRITION DIAGNOSIS: Increased kcal/prot intake needs R/T renal dysfunction as evidenced by ESRD dx, on HD. CURRENT DIET:RENAL, soft easy chew PO DIET RECOMMENDATIONS: RENAL/ texture as tolerated or per AERONAUTICAL DESIGN ENGINEER ADDITIONAL RECOMMENDATIONS: * Calibrated bedscale wt for accurate CBW -> obtaine dry wt post HD * Nepro 1 tetra penny daily w/ variable PO : 425kcal/19g prot per penny * Monitor BGs, need for carb controlled diet and/or hypoglycemics: h/o DM * Monitor for compliance w/ HD + care: episodes of refusing HD & labs * Consider AERONAUTICAL DESIGN ENGINEER eval for appropriate texture: h/o CVA * Add Nephrovite x 1
--- NOTE | 2019-04-24 12:18 | NUR ---
CASE MANAGEMENT:REVIEW 04/24/19 SI: AC/CHR CHF. HTN HEART DISEASE ESRD ON HD 98.8 101 20 153/74 97% ON RA WBC+15.3 IS: TOPROL XL PO QD HEPARIN SQ Q12 NORVASC PO QD ASA PO QD : TELEMETRY STATUS D[facility]: [facility]
--- NOTE | 2019-04-24 14:09 | Diagnostic Imaging Report ---
Indication: Cough Technique: One view of the chest Comparison: 04/21/2019 Findings: The heart is enlarged. There is mild interstitial congestion which is probably similar to the prior exam allowing for differences in degree of inspiration and exposure technique. The pleural spaces are grossly clear. Impression: Cardiomegaly Mild interstitial congestion
--- NOTE | 2019-04-24 14:31 | Nephrology Progress Note ---
Assessment/Plan Status: stable, not improved Assessment/Plan: A/P (1) ESRD MWF. Orders placed for tomorrow (2) Anemia in chronic kidney disease EPO if Hgb <10 (3) Hypertensive nephrosclerosis Adjust meds prn (4) Dementia - at baseline (5) CVA, old, cognitive deficits Subjective Date patient seen: Apr 24, 2019 Time patient seen: 14:29 ROS Limited/Unobtainable: No Allergies: Coded Allergies: No Known Allergies (Unverified , 02/27/19) Subjective Patient in no distress. No complaints Objective Last 24 Hour Vital Signs Date Time Temp Pulse Resp B/P (MAP) Pulse Ox O2 Delivery O2 Flow Rate FiO2 04/24/19 13:53 148/70 04/24/19 12:00 90 04/24/19 12:00 98.2 99 20 148/70 (96) 98 04/24/19 09:05 101 153/74 04/24/19 09:04 101 153/74 04/24/19 09:00 Room Air 04/24/19 08:00 95 04/24/19 08:00 98.8 101 20 153/74 (100) 97 04/24/19 04:01 108 04/24/19 04:00 97.6 105 17 141/79 (99) 98 04/24/19 03:26 105 04/24/19 00:00 97.6 114 16 150/71 (97) 98 04/23/19 23:36 117 04/23/19 22:00 137/90 04/23/19 21:00 Room Air 04/23/19 20:00 97.9 107 17 137/90 (106) 98 04/23/19 20:00 98 04/23/19 16:00 103 04/23/19 15:48 98.5 103 18 168/84 (112) 96 04/23/19 15:05 156/73 Intake and Output 04/23/19 04/24/19 18:59 06:59 Intake Total 120 ml Balance 120 ml Intake Oral 120 ml # Voids 2 # Bowel Movements 2 1 Laboratory Tests 04/24/19 10:50: White Blood Count 15.6H, Red Blood Count 3.27L, Hemoglobin 9.4L, Hematocrit 28.1L, Mean Corpuscular Volume 86, Mean Corpuscular Hemoglobin 28.6, Mean Corpuscular Hemoglobin Concent 33.3, Red Cell Distribution Width 13.7, Platelet Count 195, Mean Platelet Volume 5.7L, Neutrophils (%) (Auto) 83.9H, Lymphocytes (%) (Auto) 9.5L, Monocytes (%) (Auto) 6.0, Eosinophils (%) (Auto) 0.2, Basophils (%) (Auto) 0.3 Height (Feet): 5 Height (Inches): 4.00 Weight (Pounds): 136 General Appearance: no apparent distress EENT: normal ENT inspection Neck: normal alignment, supple Cardiovascular: normal rate, regular rhythm Respiratory/Chest: lungs clear, normal breath sounds Abdomen: non tender, soft Edema: no edema noted Arm (L), no edema noted Arm (R), no edema noted Leg (L), no edema noted Leg (R), no edema noted Pedal (L), no edema noted Pedal (R), no edema noted Generalized Alonso Cavazos MD Apr 24, 2019 14:31
[2019-04-24 16:00] VITALS: BP 150/75
--- NOTE | 2019-04-24 19:34 | NUR ---
HAND-OFF: Report given to MICHAEL GODFREY.
[2019-04-24 20:00] VITALS: BP 155/84
[2019-04-24] MEDS: Atorvastatin 20mg tab ORAL SCH (21:30)
[2019-04-25] VITALS: BP 146/69
--- NOTE | 2019-04-25 01:00 | Progress Note ---
DATE: 04/24/2019 CARDIOLOGY PROGRESS NOTE SUBJECTIVE: The patient is status post hemodialysis with ultrafiltration yesterday, today without new complaints still with episodes of refusing care. Yesterday, her cholesterol levels were reviewed and atorvastatin dose decreased. A beta-franck was added to her regimen as well. OBJECTIVE: VITAL SIGNS: Blood pressure 148/70, heart rate 99, respiratory rate 20, and afebrile. LUNGS: Bilateral breath sounds. No wheezing. CARDIAC: Regular rhythm and rate. Normal S1, S2 with a fourth heart sound. ABDOMEN: Soft. EXTREMITIES: Trace edema. LABORATORY AND DIAGNOSTIC DATA: White count 15.6 and hemoglobin 9.4. Chest x-ray with mild interstitial congestion and cardiomegaly. IMPRESSION: 1. Acute on chronic diastolic congestive heart failure. 2. End-stage renal disease, on hemodialysis. 3. Hyperlipidemia, now on lower statin dose due to current lipid parameters. 4. Hypertensive heart disease with elevated blood pressure and heart rate at times, presumably mood related. PLAN: 1. Hemodialysis with ultrafiltration for volume management. 2. Cautious up-titration of cardiovascular regimen. 3. Avoid treating high blood pressure during mood swings and agitation. Bulmaro Hester M.D. DR: Linda JOB#: [id number] CC:
--- NOTE | 2019-04-25 02:30 | Consultation ---
DATE OF CONSULTATION: 04/24/2019 CONSULTING PHYSICIAN: Binh Baltazar M.D. HISTORY OF PRESENT ILLNESS: The patient is a 73-year-old female with a history of multiple medical comorbidities including dementia, nephrosclerosis, anemia, ESRD, and CVA, who has been admitted to the hospital for medical stabilization. The patient has been refusing care and refusing hemodialysis. She is confused and is unable to provide meaningful history, also has not been eating. PAST PSYCHIATRIC HISTORY: Significant for dementia. PAST MEDICAL HISTORY: As above. ALLERGIES: No known drug allergies. SUBSTANCE ABUSE HISTORY: No known history of illicit drug use or alcohol. MENTAL STATUS EXAMINATION: The patient is alert and oriented times to self, disoriented to situation and date. Mood is depressed and withdrawn. Affect is constricted, congruent with mood. Thought process is concrete. Thought content, no suicidal or homicidal ideation. Cognition is impaired. Insight and judgment non-existent. ASSESSMENT: AXIS I: Major depressive disorder. Dementia. AXIS II: Deferred. AXIS III: ESRD. AXIS IV: Low. AXIS V: 20. PLAN: 1. The patient lacks capacity to refuse hemodialysis and medication. 2. Continue to administer medication against her will and hemodialysis. 3. Start the patient on Remeron 15 mg at bedtime. Binh Baltazar M.D. DR: ALEA JOB#: [id number] CC:
[2019-04-25 04:00] VITALS: BP 140/78
[2019-04-25] MEDS: HydrALAZINE 50mg tab ORAL SCH ×4 (05:59→22:11)
--- NOTE | 2019-04-25 07:09 | General Progress Note ---
Assessment/Plan Problem List: (1) Hypertensive nephrosclerosis ICD Codes: I12.9 - Hypertensive chronic kidney disease with stage 1 through stage 4 chronic kidney disease, or unspecified chronic kidney disease SNOMED: 825108239 (2) Anemia in chronic kidney disease ICD Codes: N18.9 - Chronic kidney disease, unspecified; D63.1 - Anemia in chronic kidney disease SNOMED: 354824036 (3) CVA, old, cognitive deficits ICD Codes: I69.319 - Unspecified symptoms and signs involving cognitive functions following cerebral infarction SNOMED: 98792083, 647864164, 516955335, 163969136 (4) ESRD (end stage renal disease) on dialysis ICD Codes: N18.6 - End stage renal disease; Z99.2 - Dependence on renal dialysis SNOMED: 723334541 (5) Dementia ICD Codes: F03.90 - Unspecified dementia without behavioral disturbance SNOMED: 45803067 Status: stable, not improved Assessment/Plan: repeat cbc check blood culture ua cs- if pt allows HD per renal ID consult ?abx Subjective ROS Limited/Unobtainable: No Constitutional: Reports: fever, malaise, weakness HEENT: Reports: no symptoms Cardiovascular: Reports: no symptoms Respiratory: Reports: no symptoms Gastrointestinal/Abdominal: Reports: no symptoms Genitourinary: Reports: no symptoms Neurologic/Psychiatric: Reports: anxiety, emotional problems Endocrine: Reports: no symptoms Hematologic/Lymphatic: Reports: anemia Allergies: Coded Allergies: No Known Allergies (Unverified , 02/27/19) All Systems: reviewed and negative except above Subjective cooperative with HD. Per psych pt lacks capacity. low grade temps and leukcytosis- ?etiology Objective Last 24 Hour Vital Signs Date Time Temp Pulse Resp B/P (MAP) Pulse Ox O2 Delivery O2 Flow Rate FiO2 04/25/19 05:59 140/78 04/25/19 04:00 98 04/25/19 04:00 99.7 98 20 140/78 (98) 99 04/25/19 00:00 99.1 97 20 146/69 (94) 96 04/24/19 22:33 155/84 04/24/19 21:00 Room Air 04/24/19 20:00 99.6 104 20 155/84 (107) 95 04/24/19 20:00 97 04/24/19 16:00 90 12/3/19 16:00 98.4 100 20 150/75 (100) 98 04/24/19 13:53 148/70 04/24/19 12:00 90 04/24/19 12:00 98.2 99 20 148/70 (96) 98 04/24/19 09:05 101 153/74 04/24/19 09:04 101 153/74 04/24/19 09:00 Room Air 04/24/19 08:00 95 04/24/19 08:00 98.8 101 20 153/74 (100) 97 Intake and Output 04/24/19 04/25/19 19:00 07:00 Intake Total 360 ml Balance 360 ml Intake Oral 360 ml # Voids 1 2 # Bowel Movements 1 2 Laboratory Tests 04/24/19 10:50: White Blood Count 15.6H, Red Blood Count 3.27L, Hemoglobin 9.4L, Hematocrit 28.1L, Mean Corpuscular Volume 86, Mean Corpuscular Hemoglobin 28.6, Mean Corpuscular Hemoglobin Concent 33.3, Red Cell Distribution Width 13.7, Platelet Count 195, Mean Platelet Volume 5.7L, Neutrophils (%) (Auto) 83.9H, Lymphocytes (%) (Auto) 9.5L, Monocytes (%) (Auto) 6.0, Eosinophils (%) (Auto) 0.2, Basophils (%) (Auto) 0.3 Height (Feet): 5 Height (Inches): 4.00 Weight (Pounds): 136 Objective General Appearance: WD/WN, alert Neck: supple Cardiovascular: regular rhythm Respiratory/Chest: chest wall non-tender, lungs clear, normal breath sounds, no respiratory distress Abdomen: normal bowel sounds, non tender, soft, no organomegaly Edema: no edema noted Arm (L), no edema noted Arm (R), no edema noted Leg (L), no edema noted Leg (R), no edema noted Pedal (L), no edema noted Pedal (R), no edema noted Generalized Neurologic: medical insurance verifier II-XII grossly normal, alert, responsive Freddy Quevedo MD Apr 25, 2019 07:09
--- NOTE | 2019-04-25 07:20 | NUR ---
NURSE NOTES: Received report from Maico/RN, Patient is awake, Lying semi-azul's, resting comfortably. On room air, No acute distress/SOB noted. Able to make needs known, Denies pain at this time. Sinus rhythm on the monitor. Bed in low position and locked, Bed alarm engaged. Call light within reach, Encouraged to use call light when needed. Will continue plan of care.
[2019-04-25 08:00] VITALS: BP 144/55
--- NOTE | 2019-04-25 08:11 | Nephrology Progress Note ---
Assessment/Plan Status: stable, not improved Assessment/Plan: A/P (1) ESRD - Hd today. Orders placed MWF. (2) Anemia in chronic kidney disease EPO if Hgb <10 (3) Hypertensive nephrosclerosis Adjust meds prn . Stable (4) Dementia - at baseline (5) CVA, old, cognitive deficits Subjective Date patient seen: Apr 25, 2019 Time patient seen: 08:10 ROS Limited/Unobtainable: No Allergies: Coded Allergies: No Known Allergies (Unverified , 02/27/19) Subjective Patient resting comfortably in no distress Objective Last 24 Hour Vital Signs Date Time Temp Pulse Resp B/P (MAP) Pulse Ox O2 Delivery O2 Flow Rate FiO2 04/25/19 05:59 140/78 04/25/19 04:00 98 04/25/19 04:00 99.7 98 20 140/78 (98) 99 04/25/19 00:00 99.1 97 20 146/69 (94) 96 04/24/19 22:33 155/84 04/24/19 21:00 Room Air 04/24/19 20:00 99.6 104 20 155/84 (107) 95 04/24/19 20:00 97 04/24/19 16:00 90 04/24/19 16:00 98.4 100 20 150/75 (100) 98 04/24/19 13:53 148/70 04/24/19 12:00 90 04/24/19 12:00 98.2 99 20 148/70 (96) 98 04/24/19 09:05 101 153/74 04/24/19 09:04 101 153/74 04/24/19 09:00 Room Air Intake and Output 04/24/19 04/25/19 19:00 07:00 Intake Total 360 ml Balance 360 ml Intake Oral 360 ml # Voids 1 2 # Bowel Movements 1 2 Laboratory Tests 04/24/19 10:50: White Blood Count 15.6H, Red Blood Count 3.27L, Hemoglobin 9.4L, Hematocrit 28.1L, Mean Corpuscular Volume 86, Mean Corpuscular Hemoglobin 28.6, Mean Corpuscular Hemoglobin Concent 33.3, Red Cell Distribution Width 13.7, Platelet Count 195, Mean Platelet Volume 5.7L, Neutrophils (%) (Auto) 83.9H, Lymphocytes (%) (Auto) 9.5L, Monocytes (%) (Auto) 6.0, Eosinophils (%) (Auto) 0.2, Basophils (%) (Auto) 0.3 04/25/19 07:10: Sodium Level [Pending], Potassium Level [Pending], Chloride Level [Pending], Carbon Dioxide Level [Pending], Blood Urea Nitrogen [Pending], Creatinine [ Pending], Estimat Glomerular Filtration Rate [Pending], Glucose Level [Pending] , Calcium Level [Pending] Height (Feet): 5 Height (Inches): 4.00 Weight (Pounds): 136 General Appearance: no apparent distress, alert EENT: normal ENT inspection Neck: normal alignment, supple Cardiovascular: normal rate, regular rhythm Respiratory/Chest: rhonchi - bilaterally Abdomen: non tender, soft Edema: 1+ Arm (L), 1+ Arm (R), 1+ Leg (L), 1+ Leg (R), 1+ Pedal (L), 1+ Pedal ( R), 1+ Generalized Alonso Cavazos MD Apr 25, 2019 08:11
[2019-04-25 08:30] LABS: ANION GAP 15 mmol/L (5-15); BLOOD UREA NITROGEN 41 mg/dL (7-18); CALCIUM 8.5 MG/DL (8.5-10.1); CARBON DIOXIDE 24 MMOL/L (21-32); CHLORIDE 104 MMOL/L (98-107); CREATININE 7.8 MG/DL (0.55-1.30); SODIUM 143 MMOL/L (136-145)
[2019-04-25 08:35] LABS: POTASSIUM 2.7 MMOL/L (3.5-5.1)
[2019-04-25] MEDS: Docusate 100mg cap ORAL SCH ×2 (09:51→18:07)
[2019-04-25] MEDS: Aspirin Baby 81mg ORAL SCH (09:52)
[2019-04-25] MEDS: Heparin 5000 units/ml inj SUBQ SCH ×2 (09:55→22:11)
[2019-04-25] MEDS: Metoprolol Succinate XL 25mg tab ORAL SCH (10:00)
[2019-04-25] MEDS ORDERED: cefTRIAXone 1 GM in D5W 55 ML IVPB SCH (11:30)
--- NOTE | 2019-04-25 11:37 | NUR ---
CASE MANAGEMENT:REVIEW 04/25/19 SI: AC/CHR CHF. HTN HEART DISEASE ESRD ON HD 96.6 81 19 144/55 96% ON RA K-2.7 BUN+41 CR+7.8 IS: IV CEFEPIME QD REMERON PO QHS TOPROL XL PO QD NORVASC PO QD ASA PO QD HYDRALAZINE PO Q8HRS : TELEMETRY STATUS DCP: FROM [facility]
--- NOTE | 2019-04-25 11:45 | NUR ---
NURSE NOTES: Patient refused to get an Iv access. Rocephin was not administered.
[2019-04-25 12:00] VITALS: BP 135/53
--- NOTE | 2019-04-25 14:27 | NUR ---
NURSE NOTES:WOUND CARE NOTES: Pt's skin assessed along with Primary Nurse. Received report of pt having perirectal wound. No wounds noted. Pt does have skin hypopigmentation perirectal,perineum and labia majora. Pt denied pain or tenderness when sacral area palpated. R heel Boggy with non-blanching erythema. Tender when minimally palpated. L heel boggy with non-blanching erythema. Tender when minimally palpated. Tx.plan: Apply Moisture Barrier Paste to Buttocks and marcus-rectal area with each incontinence care. Apply Optifoam drsg to sacral area. Change every 3 days and prn. Apply Cavilon Skin Barrier to both heels. Cover each heel with Optifoam drsg. Change every 7 days and prn. Reposition at least every 2hours or as tolerated. Off-load heels with pillow.
--- NOTE | 2019-04-25 15:00 | Consultation ---
DATE OF CONSULTATION: 04/25/2019 INFECTIOUS DISEASES CONSULTATION CONSULTING PHYSICIAN: Ovidio Wilson M.D. REFERRING PHYSICIAN: Freddy Quevedo M.D. REASON FOR CONSULTATION: Leukocytosis. HISTORY OF PRESENTING ILLNESS: This is a 73-year-old lady with history of renal failure on dialysis, diabetes, hypertension, CVA who came in from a halfway facility after missing her dialysis session. An Infectious Diseases consultation has been obtained for possible sepsis. PAST MEDICAL HISTORY: 1. History of diabetes. 2. Hypertension. 3. CVA. 4. Renal failure, on dialysis. SOCIAL HISTORY: No smoking. No alcohol. No drug use. FAMILY HISTORY: Noncontributory. REVIEW OF SYSTEMS: RESPIRATORY: No fever, chills, cough, shortness of breath, or chest pain. CARDIAC: No chest pain. No palpitations. No dizziness. No syncope. GASTROINTESTINAL: No nausea. No vomiting. No abdominal pain or diarrhea. MEDICATIONS: As an inpatient, she is on atorvastatin, Remeron, metoprolol, Epogen, ergocalciferol, subcutaneous heparin, amlodipine, aspirin, docusate, hydralazine, Dulcolax, Tylenol, clonidine, Magna. ALLERGIES: No known drug allergies. PHYSICAL EXAMINATION: VITAL SIGNS: Temperature of 96.6, T-max of 99.7, pulse of 81, respiratory rate 19, blood pressure 144/55, O2 saturation of 96%. HEENT: Pupils equally reactive to light and accommodation. Mouth appears clean without thrush. NECK: Supple. No adenopathy. No JVD. CARDIOVASCULAR: Regular rate and rhythm. No murmurs. LUNGS: Clear to auscultation bilaterally. No crackles. No wheezes. ABDOMEN: Soft and nontender. No organomegaly. EXTREMITIES: No cyanosis, no clubbing, no edema. LABORATORY AND DIAGNOSTIC DATA: White count 15.6, hemoglobin 9.4, hematocrit 28.1, MCV 86, platelet count of 195. Sodium 143, potassium 2.7, chloride 104, bicarb 24, BUN 41, creatinine 7.8, glucose 95, calcium 8.5. Total bilirubin 0.3, AST 22, ALT 21, alkaline phosphatase 82. CK of 69. Total protein 7.2. Albumin 3.4. Cholesterol of 98. Nasal swab was negative for MRSA. Chest x-ray is showing cardiomegaly. Mild congestion noted. ASSESSMENT: 1. This is a 73-year-old lady with history of diabetes, hypertension, CVA, renal failure, on dialysis, who comes in after missing dialysis session and is found to have leukocytosis. We like to rule out pneumonia as a possibility. 2. Diabetes. 3. Hypertension. 4. Renal failure. PLAN: 1. We will start the patient on ceftriaxone. 2. We will order sputum cultures. 3. We will follow up cultures and adjust antibiotics accordingly. I would like to thank, Dr. Quevedo, for this consultation. Ovidio Wilson M.D. DR: NICHO JOB#: [id number] CC: Freddy Quevedo M.D.
--- NOTE | 2019-04-25 15:30 | Progress Note ---
DATE: 04/25/2019 SUBJECTIVE: The patient is asleep, no acute distress. The patient is unable to understand process or appreciate information given to her in regards to her medical condition. The patient lacks capacity to make decisions. The patient may refuse to hemodialysis nor medication. MENTAL STATUS EXAMINATION: Alert and oriented times self. Disoriented to situation. Mood is dysphoric. Affect is constricted. Congruent with mood. Thought process is concrete. Thought content, no suicidal or homicidal ideation. Cognition is impaired. Insight and judgment, non-existent. ASSESSMENT: The patient lacks capacity to make decisions. PLAN: 1. We will continue current medication. 2. Encourage the patient to eat. Binh Baltazar M.D. DR: Dyan JOB#: [id number] CC:
[2019-04-25 16:00] VITALS: BP 138/79
[2019-04-25] MEDS: HYDROcodone/Acetamin 10/325 tab ORAL PRN (18:12)
--- NOTE | 2019-04-25 19:43 | NUR ---
HAND-OFF: Report given to Bela/RN, Patient is in stable condition. Endorsed plan of care.
[2019-04-25 20:00] VITALS: BP 155/74
[2019-04-25] MEDS: Atorvastatin 20mg tab ORAL SCH (22:10)
[2019-04-25] MEDS: Epoetin Alfa-EPBX(ESRD on dialysis)4000 units/ml vial SUBQ SCH (22:12)
--- NOTE | 2019-04-25 23:02 | Progress Note ---
DATE: 04/25/2019 CARDIOLOGY PROGRESS NOTE SUBJECTIVE: The patient has completed hemodialysis today. She is having low-grade fevers. White count remains elevated. No nausea, vomiting, or diarrhea. No cough or shortness of breath. OBJECTIVE: VITAL SIGNS: Blood pressure 140/78, pulse 98, respirations 20, and temperature 99.7. LUNGS: Bilateral breath sounds. CARDIAC: Regular rhythm and rate. Normal S1, S2 with no new murmur. ABDOMEN: Soft. EXTREMITIES: No edema. IMPRESSION: 1. Leukocytosis and fevers. 2. End-stage renal disease. 3. Acute on chronic diastolic congestive heart failure. 4. Hyperlipidemia on adjusted statin dose 5. Hypertensive heart disease with controlled blood pressure now following improved mood. PLAN: 1. ID consultation per primary care physician. 2. Continue current cardiovascular regimen. 3. Hemodialysis with ultrafiltration for volume management. 4. Okay to discontinue telemetry. Bulmaro Hester M.D. DR: KYLAH JOB#: [id number] CC:
[2019-04-26] VITALS: BP 118/52
[2019-04-26 04:00] VITALS: BP 142/63
[2019-04-26] MEDS: HydrALAZINE 50mg tab ORAL SCH ×4 (06:34→22:00)
--- NOTE | 2019-04-26 07:08 | General Progress Note ---
Assessment/Plan Problem List: (1) Hypertensive nephrosclerosis ICD Codes: I12.9 - Hypertensive chronic kidney disease with stage 1 through stage 4 chronic kidney disease, or unspecified chronic kidney disease SNOMED: 692719390 (2) Anemia in chronic kidney disease ICD Codes: N18.9 - Chronic kidney disease, unspecified; D63.1 - Anemia in chronic kidney disease SNOMED: 914349022 (3) CVA, old, cognitive deficits ICD Codes: I69.319 - Unspecified symptoms and signs involving cognitive functions following cerebral infarction SNOMED: 10071686, 367329429, 190361924, 065229776 (4) ESRD (end stage renal disease) on dialysis ICD Codes: N18.6 - End stage renal disease; Z99.2 - Dependence on renal dialysis SNOMED: 413605433 (5) Dementia ICD Codes: F03.90 - Unspecified dementia without behavioral disturbance SNOMED: 98790438 Status: stable, not improved Assessment/Plan: repeat cbc check blood culture ua cs- if pt allows HD per renal ID consult appreciated iv abx per id compliance stressed psych rx Subjective ROS Limited/Unobtainable: No Constitutional: Reports: malaise, weakness HEENT: Reports: no symptoms Cardiovascular: Reports: no symptoms Respiratory: Reports: no symptoms Gastrointestinal/Abdominal: Reports: no symptoms Genitourinary: Reports: no symptoms Neurologic/Psychiatric: Reports: emotional problems Endocrine: Reports: no symptoms Hematologic/Lymphatic: Reports: no symptoms Allergies: Coded Allergies: No Known Allergies (Unverified , 02/27/19) All Systems: reviewed and negative except above Subjective no events. w/o complaints. no cp/sob. on iv abx. ?pna Objective Last 24 Hour Vital Signs Date Time Temp Pulse Resp B/P (MAP) Pulse Ox O2 Delivery O2 Flow Rate FiO2 04/26/19 06:34 142/63 04/26/19 04:00 98.0 91 16 142/63 (89) 99 04/26/19 04:00 81 04/26/19 04:00 91 04/26/19 00:00 97.9 83 18 118/52 (74) 99 04/26/19 00:00 81 04/25/19 22:11 138/79 04/25/19 21:00 Room Air 04/25/19 20:00 97.0 18 155/74 (101) 96 04/25/19 16:00 98.8 85 18 138/79 (98) 99 04/25/19 16:00 84 04/25/19 14:00 135/53 04/25/19 12:00 90 04/25/19 12:00 98.7 89 19 135/53 (80) 98 04/25/19 10:00 81 144/55 04/25/19 10:00 81 144/55 04/25/19 09:00 Room Air 04/25/19 08:00 96.6 81 19 144/55 (84) 96 04/25/19 08:00 88 Intake and Output 04/25/19 04/26/19 19:00 07:00 Intake Total 240 ml Output Total 200 ml Balance 40 ml Intake Oral 240 ml Output Urine Total 200 ml # Voids 1 2 # Bowel Movements 1 Laboratory Tests 04/25/19 07:10: Sodium Level 143, Potassium Level 2.7*L, Chloride Level 104, Carbon Dioxide Level 24, Anion Gap 15, Blood Urea Nitrogen 41H, Creatinine 7.8H, Estimat Glomerular Filtration Rate , Glucose Level 95, Calcium Level 8.5 04/26/19 06:35: Sodium Level [Pending], Potassium Level [Pending], Chloride Level [Pending], Carbon Dioxide Level [Pending], Blood Urea Nitrogen [Pending], Creatinine [ Pending], Estimat Glomerular Filtration Rate [Pending], Glucose Level [Pending] , Calcium Level [Pending], White Blood Count [Pending], Red Blood Count [Pending ], Hemoglobin [Pending], Hematocrit [Pending], Mean Corpuscular Volume [Pending] , Mean Corpuscular Hemoglobin [Pending], Mean Corpuscular Hemoglobin Concent [ Pending], Red Cell Distribution Width [Pending], Platelet Count [Pending], Mean Platelet Volume [Pending], Neutrophils (%) (Auto) [Pending], Lymphocytes (%) ( Auto) [Pending], Monocytes (%) (Auto) [Pending], Eosinophils (%) (Auto) [Pending ], Basophils (%) (Auto) [Pending], Magnesium Level [Pending], Total Bilirubin [ Pending], Aspartate Amino Transf (AST/SGOT) [Pending], Alanine Aminotransferase (ALT/SGPT) [Pending], Alkaline Phosphatase [Pending], Total Protein [Pending], Albumin [Pending], Globulin [Pending] Height (Feet): 5 Height (Inches): 4.00 Weight (Pounds): 136 Objective General Appearance: WD/WN, alert Neck: supple Cardiovascular: regular rhythm Respiratory/Chest: chest wall non-tender, lungs clear, normal breath sounds, no respiratory distress Abdomen: normal bowel sounds, non tender, soft, no organomegaly Edema: no edema noted Arm (L), no edema noted Arm (R), no edema noted Leg (L), no edema noted Leg (R), no edema noted Pedal (L), no edema noted Pedal (R), no edema noted Generalized Neurologic: filter screen cleaner II-XII grossly normal, alert, responsive Freddy Quevedo MD Apr 26, 2019 07:07
[2019-04-26 07:15] LABS: BASOPHILS % (AUTO) 1.2 % (0.0-2.0); EOSINOPHILS % (AUTO) 2.7 % (0.0-3.0); HEMOGLOBIN 10.3 G/DL (12.0-16.0); LYMPHOCYTES % (AUTO) 16.3 % (20.0-45.0); MEAN CORPUSCULAR VOLUME 86 FL (80-99); MONOCYTES % (AUTO) 7.3 % (1.0-10.0); NEUTROPHILS % (AUTO) 72.7 % (45.0-75.0); PLATELET COUNT 198 K/UL (150-450); RED BLOOD COUNT 3.58 M/UL (4.20-5.40); RED CELL DISTRIBUTION WIDTH 13.6 % (11.6-14.8)
--- NOTE | 2019-04-26 07:23 | NUR ---
Handoff given to Emily Menendez RN. Endorsed plan of care. Patient stable.
--- NOTE | 2019-04-26 07:25 | NUR ---
NURSE NOTES: Received report from Bela/MICHAEL, Patient is awake, Lying semi-azul's, resting comfortably. On room air, No acute distress/SOB noted. Able to make needs known, Denies pain at this time. Sinus rhythm on the monitor. Bed in low position and locked, Bed alarm engaged. Call light within reach, Encouraged to use call light when needed. Will continue plan of care.
[2019-04-26 07:39] LABS: ALANINE AMINOTRANSFERASE 19 U/L (12-78); ALBUMIN 3.5 G/DL (3.4-5.0); ALBUMIN/GLOBULIN RATIO 0.8 (1.0-2.7); ALKALINE PHOSPHATASE 84 U/L (46-116); ANION GAP 11 mmol/L (5-15); ASPARTATE AMINO TRANSFERASE 24 U/L (15-37); BILIRUBIN,TOTAL 0.4 MG/DL (0.2-1.0); BLOOD UREA NITROGEN 32 mg/dL (7-18); CARBON DIOXIDE 28 MMOL/L (21-32); CHLORIDE 101 MMOL/L (98-107); CREATININE 6.5 MG/DL (0.55-1.30); POTASSIUM 3.5 MMOL/L (3.5-5.1); SODIUM 140 MMOL/L (136-145)
[2019-04-26 08:00] VITALS: BP 135/72
--- NOTE | 2019-04-26 08:22 | Nephrology Progress Note ---
Assessment/Plan Status: stable, not improved Assessment/Plan: A/P (1) ESRD - MWF. She has agreed to out patient HD (2) Anemia in chronic kidney disease EPO if Hgb <10 (3) Hypertensive nephrosclerosis Adjust meds prn . Stable (4) Dementia - at baseline (5) CVA, old, cognitive deficits Subjective Date patient seen: Apr 26, 2019 Time patient seen: 08:19 ROS Limited/Unobtainable: No Allergies: Coded Allergies: No Known Allergies (Unverified , 02/27/19) Subjective Patient more awake and eating breakfast Objective Last 24 Hour Vital Signs Date Time Temp Pulse Resp B/P (MAP) Pulse Ox O2 Delivery O2 Flow Rate FiO2 04/26/19 08:00 98.6 104 20 135/72 (93) 100 04/26/19 06:34 142/63 04/26/19 04:00 98.0 91 16 142/63 (89) 99 04/26/19 04:00 81 04/26/19 04:00 91 04/26/19 00:00 97.9 83 18 118/52 (74) 99 04/26/19 00:00 81 04/25/19 22:11 138/79 04/25/19 21:00 Room Air 04/25/19 20:00 97.0 18 155/74 (101) 96 04/25/19 16:00 98.8 85 18 138/79 (98) 99 04/25/19 16:00 84 04/25/19 14:00 135/53 04/25/19 12:00 90 04/25/19 12:00 98.7 89 19 135/53 (80) 98 04/25/19 10:00 81 144/55 04/25/19 10:00 81 144/55 04/25/19 09:00 Room Air Intake and Output 04/25/19 04/26/19 19:00 07:00 Intake Total 240 ml Output Total 200 ml Balance 40 ml Intake Oral 240 ml Output Urine Total 200 ml # Voids 1 2 # Bowel Movements 1 Laboratory Tests 04/26/19 06:35: White Blood Count 13.0H, Red Blood Count 3.58L, Hemoglobin 10.3L, Hematocrit 31.0L, Mean Corpuscular Volume 86, Mean Corpuscular Hemoglobin 28.8, Mean Corpuscular Hemoglobin Concent 33.3, Red Cell Distribution Width 13.6, Platelet Count 198, Mean Platelet Volume 5.9L, Neutrophils (%) (Auto) 72.7, Lymphocytes ( %) (Auto) 16.3L, Monocytes (%) (Auto) 7.3, Eosinophils (%) (Auto) 2.7, Basophils (%) (Auto) 1.2, Sodium Level 140, Potassium Level 3.5, Chloride Level 101, Carbon Dioxide Level 28, Anion Gap 11, Blood Urea Nitrogen 32H, Creatinine 6.5H, Estimat Glomerular Filtration Rate , Glucose Level 91, Calcium Level 9.0, Magnesium Level 2.2, Total Bilirubin 0.4, Aspartate Amino Transf (AST/SGOT) 24, Alanine Aminotransferase (ALT/SGPT) 19, Alkaline Phosphatase 84, Total Protein 7.8, Albumin 3.5, Globulin 4.3, Albumin/Globulin Ratio 0.8L Height (Feet): 5 Height (Inches): 4.00 Weight (Pounds): 136 General Appearance: no apparent distress, alert EENT: normal ENT inspection Neck: normal alignment, supple Cardiovascular: normal rate, regular rhythm Respiratory/Chest: lungs clear, normal breath sounds Abdomen: non tender, soft Edema: 1+ Arm (L), 1+ Arm (R), 1+ Leg (L), 1+ Leg (R), 1+ Pedal (L), 1+ Pedal ( R), 1+ Generalized Alonso Cavazos MD Apr 26, 2019 08:22
[2019-04-26] MEDS: Docusate 100mg cap ORAL SCH ×2 (08:51→18:30)
[2019-04-26] MEDS: Metoprolol Succinate XL 25mg tab ORAL SCH (08:51)
[2019-04-26] MEDS: Aspirin Baby 81mg ORAL SCH (08:51)
[2019-04-26] MEDS: Heparin 5000 units/ml inj SUBQ SCH ×2 (09:00→21:58)
--- NOTE | 2019-04-26 10:00 | NUR ---
NURSE NOTES: Patient is still refusing IV access. Called Dr. Barth and left a message regarding no IV access.
[2019-04-26 12:00] VITALS: BP 136/67
--- NOTE | 2019-04-26 13:09 | NUR ---
DISCHARGE PLANNING NOT READY FOR DISCHARGE D/T HR~104 AND WBC+13 FAXED CLINICALS TO [facility] T: [phone]
--- NOTE | 2019-04-26 13:10 | NUR ---
NURSE NOTES: Called [facility] [phone] and talked with Sho. Scheduled HD for tomorrow.
--- NOTE | 2019-04-26 14:50 | Infectious Diseases Prog Note ---
Assessment/Plan Assessment/Plan A; 1.Leukocytosis. 2. Diabetes. 3. Hypertension. 4. End stage Renal failure. 5.Anemia PLAN: 1. Patient is refusing IV antibiotic, discontinue ceftriaxone. 2. Start on Levaquin Subjective ROS Limited/Unobtainable: No Constitutional: Reports: no symptoms Cardiovascular: Reports: no symptoms Gastrointestinal/Abdominal: Reports: no symptoms Genitourinary: Reports: no symptoms Musculoskeletal: Reports: no symptoms Allergies: Coded Allergies: No Known Allergies (Unverified , 02/27/19) Objective Vital Signs Last 24 Hour Vital Signs Date Time Temp Pulse Resp B/P (MAP) Pulse Ox O2 Delivery O2 Flow Rate FiO2 04/26/19 13:34 136/67 04/26/19 12:00 97.6 86 18 136/67 (90) 97 04/26/19 12:00 91 04/26/19 09:00 Room Air 04/26/19 08:51 104 135/72 04/26/19 08:51 104 135/72 04/26/19 08:00 93 04/26/19 08:00 98.6 104 20 135/72 (93) 100 04/26/19 06:34 142/63 04/26/19 04:00 98.0 91 16 142/63 (89) 99 04/26/19 04:00 81 04/26/19 04:00 91 04/26/19 00:00 97.9 83 18 118/52 (74) 99 04/26/19 00:00 81 04/25/19 22:11 138/79 04/25/19 21:00 Room Air 04/25/19 20:00 97.0 18 155/74 (101) 96 04/25/19 16:00 98.8 85 18 138/79 (98) 99 04/25/19 16:00 84 Height (Feet): 5 Height (Inches): 4.00 Weight (Pounds): 137 General Appearance: no acute distress HEENT: mucous membranes moist Respiratory/Chest: lungs clear Cardiovascular: normal rate Abdomen: soft, non tender Extremities: no edema Neurologic/Psychiatric: alert, responsive Microbiology Date/Time Source Procedure Growth Status 04/24/19 10:50 Blood Blood Culture - Preliminary NO GROWTH AFTER 24 HOURS Resulted Laboratory Tests Test 04/26/19 06:35 White Blood Count 13.0 K/UL (4.8-10.8) H Red Blood Count 3.58 M/UL (4.20-5.40) L Hemoglobin 10.3 G/DL (12.0-16.0) L Hematocrit 31.0 % (37.0-47.0) L Mean Corpuscular Volume 86 FL (80-99) Mean Corpuscular Hemoglobin 28.8 PG (27.0-31.0) Mean Corpuscular Hemoglobin Concent 33.3 G/DL (32.0-36.0) Red Cell Distribution Width 13.6 % (11.6-14.8) Platelet Count 198 K/UL (150-450) Mean Platelet Volume 5.9 FL (6.5-10.1) L Neutrophils (%) (Auto) 72.7 % (45.0-75.0) Lymphocytes (%) (Auto) 16.3 % (20.0-45.0) L Monocytes (%) (Auto) 7.3 % (1.0-10.0) Eosinophils (%) (Auto) 2.7 % (0.0-3.0) Basophils (%) (Auto) 1.2 % (0.0-2.0) Sodium Level 140 MMOL/L (136-145) Potassium Level 3.5 MMOL/L (3.5-5.1) Chloride Level 101 MMOL/L (98-107) Carbon Dioxide Level 28 MMOL/L (21-32) Anion Gap 11 mmol/L (5-15) Blood Urea Nitrogen 32 mg/dL (7-18) H Creatinine 6.5 MG/DL (0.55-1.30) H Estimat Glomerular Filtration Rate mL/min (>60) Glucose Level 91 MG/DL (74-106) Calcium Level 9.0 MG/DL (8.5-10.1) Magnesium Level 2.2 MG/DL (1.8-2.4) Total Bilirubin 0.4 MG/DL (0.2-1.0) Aspartate Amino Transf (AST/SGOT) 24 U/L (15-37) Alanine Aminotransferase (ALT/SGPT) 19 U/L (12-78) Alkaline Phosphatase 84 U/L (46-116) Total Protein 7.8 G/DL (6.4-8.2) Albumin 3.5 G/DL (3.4-5.0) Globulin 4.3 g/dL Albumin/Globulin Ratio 0.8 (1.0-2.7) L Current Medications Medications (Trade) Dose Ordered Sig/Jeanne Route PRN Reason Start Time Stop Time Status Last Admin Dose Admin Acetaminophen (Tylenol) 650 mg Q4H PRN ORAL Mild Pain (Pain Scale 1-3) 04/21/19 20:00 05/21/19 19:59 04/24/19 21:30 Acetaminophen/ Hydrocodone Bitart ([place] 10/325) 1 tab Q4H PRN ORAL PAIN 4-10 04/21/19 20:00 04/28/19 19:59 04/25/19 18:12 Amlodipine Besylate (Norvasc) 10 mg DAILY ORAL 04/22/19 09:00 05/22/19 08:59 04/26/19 08:51 Aspirin (ASA) 81 mg DAILY ORAL 04/22/19 09:00 05/22/19 08:59 04/26/19 08:51 Atorvastatin Calcium (Lipitor) 20 mg BEDTIME ORAL 04/24/19 21:00 05/24/19 20:59 04/25/19 22:10 Bisacodyl (Dulcolax) 10 mg DAILYPRN PRN RECTAL Constipation 04/21/19 20:30 05/21/19 19:59 04/26/19 08:55 Ceftriaxone Sodium 1 gm/ Dextrose 55 ml @ 110 mls/hr DAILY IVPB 04/25/19 11:30 05/02/19 11:29 Clonidine HCl (Catapres Tab) 0.1 mg Q4H PRN ORAL SBP >160 mmhg 04/21/19 20:00 05/21/19 19:59 Docusate Sodium (Colace) 100 mg TWICE A DAY ORAL 04/22/19 09:00 05/22/19 08:59 04/26/19 08:51 Epoetin Reuben (Epoetin Reuben(ESRD on dialysis)) 8,000 unit TUE-TUE-TUE SUBQ 04/23/19 21:00 05/23/19 20:59 04/25/19 22:12 Ergocalciferol (Drisdol) 50,000 intlu ONCE A WEEK ORAL 04/23/19 09:00 05/23/19 08:59 04/23/19 09:48 Heparin Sodium (Porcine) (Heparin 5000 units/ml) 5,000 units EVERY 12 HOURS SUBQ 04/22/19 21:00 05/22/19 20:59 04/26/19 09:00 Hydralazine HCl (Apresoline) 100 mg Q8HR ORAL 04/21/19 22:00 05/21/19 21:59 04/26/19 13:34 Metoprolol Succinate (Toprol XL) 25 mg DAILY ORAL 04/24/19 09:00 05/24/19 08:59 04/26/19 08:51 Mirtazapine (Remeron) 15 mg BEDTIME ORAL 04/24/19 21:00 05/24/19 20:59 04/25/19 22:10 Jarrett Levy MD Apr 26, 2019 14:50
--- NOTE | 2019-04-26 15:15 | NUR ---
TRANSFER TO FLOOR: Patient transferred to [facility] (4E) per Dr. Hester order. Report given to Bulmaro/RN. Patient is in stable condition, No acute distress/SOB noted. Belongings check done with receiving nurse. Medications given to receiving nurse. Endorsed plan of care.
[2019-04-26] MEDS ORDERED: HYDROcodone/Acetamin 10/325 tab ORAL PRN (15:30)
[2019-04-26 16:06] VITALS: BP 127/57
--- NOTE | 2019-04-26 19:27 | NUR ---
HAND-OFF: Report given to MICHAEL Taylor.
[2019-04-26 20:00] VITALS: BP 130/55
--- NOTE | 2019-04-26 20:00 | NUR ---
NURSE NOTES: received pt in bed. AAO X1 in room air. No IV access and Dr. Quevedo aware. no s/s of acute distress. no c/o pain. call light within reach. bed is the lowest position. will continue to provide plan of care.
[2019-04-26] MEDS: Atorvastatin 20mg tab ORAL SCH (21:53)
[2019-04-27] VITALS (7 sets, daily range): BP systolic 104–148; BP diastolic 57–75
--- NOTE | 2019-04-27 05:15 | Progress Note ---
DATE: 04/26/2019 SUBJECTIVE: The patient has low energy, sitting in bed, and withdrawn. The patient took medication today, however, refused the IV access. The patient is unable to understand, process, or communicate rationally. MENTAL STATUS EXAMINATION: The patient is alert and oriented times self and place. Mood is depressed. Affect is constricted. Congruent with mood. Thought process is concrete. Thought content, no suicidal or homicidal ideation. No psychotic symptoms. Cognition is impaired. Insight and judgment, non-existent. ASSESSMENT: Dementia with behavior disturbance. PLAN: 1. The patient lacks capacity to make decisions. 2. The patient's medication should be administered against her will. 3. We will continue to follow and readjust the medication. Binh Baltazar M.D. DR: TAMMY JOB#: [id number] CC:
--- NOTE | 2019-04-27 05:15 | Progress Note ---
DATE: 04/26/2019 CARDIOLOGY PROGRESS NOTE SUBJECTIVE: The patient without distress. She remains on empiric antimicrobials. OBJECTIVE: VITAL SIGNS: Blood pressure 142/63, pulse 91, respiratory rate 16, afebrile. LUNGS: Bilateral breath sounds. No wheezing or rales. HEART: Regular rhythm and rate. Normal S1 and S2. ABDOMEN: Soft. EXTREMITIES: No edema. LABORATORY DATA: White count 13 and hemoglobin 10.3. Potassium 3.5, BUN 32, and creatinine 6.5. IMPRESSION: 1. Leukocytosis, possible pneumonia and sepsis. 2. End-stage renal disease. 3. Hypertensive heart disease. 4. Acute on chronic diastolic congestive heart failure. 5. Hypertensive heart disease with controlled blood pressure. PLAN: 1. Continue current cardiovascular regimen. 2. Hemodialysis with ultrafiltration for volume management. 3. Monitor white blood count. 4. Continue empiric antimicrobials. 5. Followup chest x-ray. Bulmaro Hester M.D. DR: URVASHI JOB#: [id number] CC:
[2019-04-27] MEDS: HydrALAZINE 50mg tab ORAL SCH ×3 (06:00→21:13)
--- NOTE | 2019-04-27 07:30 | NUR ---
NURSE NOTES: Received patient is awake, alert and orientedx2. On semi-azul's, calm and resting comfortably. On room air, No acute distress/SOB noted. Able to make needs known, Denies pain at this time. No IV access noted. HD access dry and intact. Bed in low position and locked, Bed alarm engaged. Call light within reach. Will continue plan of care.
--- NOTE | 2019-04-27 07:59 | NUR ---
HAND-OFF: Report given to Sophie JIMENEZ.
--- NOTE | 2019-04-27 08:33 | Nephrology Progress Note ---
Assessment/Plan Status: stable, not improved Assessment/Plan: A/P (1) ESRD - MWF. She has agreed to out patient HD - HD today (2) Anemia in chronic kidney disease EPO started (3) Hypertensive nephrosclerosis Adjust meds prn . (4) Dementia - at baseline (5) CVA, old, cognitive deficits Subjective Date patient seen: Apr 27, 2019 Time patient seen: 08:32 ROS Limited/Unobtainable: No Allergies: Coded Allergies: No Known Allergies (Unverified , 02/27/19) Subjective Patient resting comfortably Objective Last 24 Hour Vital Signs Date Time Temp Pulse Resp B/P (MAP) Pulse Ox O2 Delivery O2 Flow Rate FiO2 04/27/19 08:00 98.0 86 19 148/67 (94) 99 04/27/19 04:00 98.2 90 16 110/58 (75) 96 04/27/19 00:00 98.4 98 19 145/75 (98) 98 04/27/19 00:00 99.2 89 17 116/62 (80) 99 04/26/19 22:00 132/64 04/26/19 21:00 Room Air 04/26/19 20:00 98.2 93 16 130/55 (80) 97 04/26/19 16:06 99.6 96 23 127/57 (80) 93 04/26/19 13:34 136/67 04/26/19 12:00 97.6 86 18 136/67 (90) 97 04/26/19 12:00 91 04/26/19 09:00 Room Air 04/26/19 08:51 104 135/72 04/26/19 08:51 104 135/72 Intake and Output 04/26/19 04/27/19 19:00 07:00 Intake Total 120 ml Balance 120 ml Intake Oral 120 ml # Bowel Movements 1 1 Height (Feet): 5 Height (Inches): 4.00 Weight (Pounds): 137 General Appearance: no apparent distress EENT: normal ENT inspection Neck: normal alignment, supple Cardiovascular: normal rate, regular rhythm Respiratory/Chest: lungs clear, normal breath sounds Abdomen: non tender, soft Edema: 1+ Arm (L), 1+ Arm (R), 1+ Leg (L), 1+ Leg (R), 1+ Pedal (L), 1+ Pedal ( R), 1+ Generalized Alonso Cavazos MD Apr 27, 2019 08:33
[2019-04-27] MEDS: Heparin 5000 units/ml inj SUBQ SCH ×2 (08:57→21:00)
[2019-04-27] MEDS: Docusate 100mg cap ORAL SCH ×2 (08:57→17:59)
[2019-04-27] MEDS: Levofloxacin 500mg tab ORAL SCH ×2 (08:57→15:22)
[2019-04-27] MEDS ORDERED: Levofloxacin 500mg tab ORAL SCH (09:00)
[2019-04-27] MEDS ORDERED: Aspirin Baby 81mg ORAL SCH (09:00)
[2019-04-27] MEDS ORDERED: Metoprolol Succinate XL 25mg tab ORAL SCH (09:00)
[2019-04-27] MEDS ORDERED: LEVAQUIN500 MG ORAL (09:24)
--- NOTE | 2019-04-27 10:20 | NUR ---
NURSE NOTES: spoke with Maria Guadalupe @ [facility] for sched HD today. Addendum: 04/27/19 at 1027 by ANNETTE MAYES LVN KELLEY CARTER and accdg to him HD will be done this evening. informed Arnold RESENDEZ.
--- NOTE | 2019-04-27 10:51 | NUR ---
DISCHARGE PLANNING PATIENT IS RETURNING TO [facility] ROOM 12B SKILLED T: [phone] FOR NURSE TO NURSE REPORT [facility] HAS BEEN ARRANGED FOR 1230 [employer]
--- NOTE | 2019-04-27 13:03 | Infectious Diseases Prog Note ---
Assessment/Plan Assessment/Plan A; 1.Leukocytosis. 2. Diabetes. 3. Hypertension. 4. End stage Renal failure. 5.Anemia PLAN: 1. Patient is refusing IV antibiotic. 2.Continue Levaquin Subjective ROS Limited/Unobtainable: Yes Constitutional: Reports: no symptoms Respiratory: Reports: no symptoms Cardiovascular: Reports: no symptoms Gastrointestinal/Abdominal: Reports: no symptoms Genitourinary: Reports: no symptoms Allergies: Coded Allergies: No Known Allergies (Unverified , 02/27/19) Objective Vital Signs Last 24 Hour Vital Signs Date Time Temp Pulse Resp B/P (MAP) Pulse Ox O2 Delivery O2 Flow Rate FiO2 04/27/19 12:00 97.9 83 18 136/65 (88) 99 04/27/19 08:57 86 148/67 04/27/19 08:57 86 148/67 04/27/19 08:00 Room Air 04/27/19 08:00 98.0 86 19 148/67 (94) 99 04/27/19 04:00 98.2 90 16 110/58 (75) 96 04/27/19 00:00 98.4 98 19 145/75 (98) 98 04/27/19 00:00 99.2 89 17 116/62 (80) 99 04/26/19 22:00 132/64 04/26/19 21:00 Room Air 04/26/19 20:00 98.2 93 16 130/55 (80) 97 04/26/19 16:06 99.6 96 23 127/57 (80) 93 04/26/19 13:34 136/67 Height (Feet): 5 Height (Inches): 4.00 Weight (Pounds): 137 General Appearance: no acute distress HEENT: mucous membranes moist Respiratory/Chest: lungs clear Abdomen: soft, non tender Extremities: no edema Neurologic/Psychiatric: alert, responsive Current Medications Medications (Trade) Dose Ordered Sig/Jeanne Route PRN Reason Start Time Stop Time Status Last Admin Dose Admin Acetaminophen (Tylenol) 650 mg Q4H PRN ORAL Mild Pain (Pain Scale 1-3) 04/26/19 15:29 05/26/19 15:28 Acetaminophen/ Hydrocodone Bitart ([place] 10/325) 1 tab Q4H PRN ORAL PAIN 4-10 04/26/19 15:30 05/03/19 15:29 Amlodipine Besylate (Norvasc) 10 mg DAILY ORAL 04/27/19 09:00 05/22/19 08:59 Aspirin (ASA) 81 mg DAILY ORAL 04/27/19 09:00 05/22/19 08:59 Atorvastatin Calcium (Lipitor) 20 mg BEDTIME ORAL 04/26/19 21:00 05/24/19 20:59 04/26/19 21:53 Bisacodyl (Dulcolax) 10 mg DAILYPRN PRN RECTAL Constipation 04/26/19 15:30 05/26/19 15:29 Clonidine HCl (Catapres Tab) 0.1 mg Q4H PRN ORAL SBP >160 mmhg 04/26/19 15:30 05/26/19 15:29 Docusate Sodium (Colace) 100 mg TWICE A DAY ORAL 04/26/19 18:00 05/22/19 08:59 04/26/19 18:30 Epoetin Reuben (Epoetin Reuben(ESRD on dialysis)) 8,000 unit TUE- SUBQ 04/27/19 21:00 05/23/19 20:59 Ergocalciferol (Drisdol) 50,000 intlu ONCE A WEEK ORAL 04/30/19 09:00 05/23/19 08:59 Heparin Sodium (Porcine) (Heparin 5000 units/ml) 5,000 units EVERY 12 HOURS SUBQ 04/26/19 21:00 05/22/19 20:59 04/26/19 21:58 Hydralazine HCl (Apresoline) 100 mg Q8HR ORAL 04/26/19 22:00 05/21/19 21:59 Levofloxacin (Levaquin) 500 mg EVERY OTHER DAY ORAL 04/27/19 09:00 05/04/19 08:59 Metoprolol Succinate (Toprol XL) 25 mg DAILY ORAL 04/27/19 09:00 05/24/19 08:59 Mirtazapine (Remeron) 15 mg BEDTIME ORAL 04/26/19 21:00 05/24/19 20:59 04/26/19 21:53 Jarrett Levy MD Apr 27, 2019 13:03
--- NOTE | 2019-04-27 16:17 | NUR ---
NURSE NOTES: called next of kin to inform for discharge. [facility] called and spoke with MICHAEL MERAZ for report. HD is ongoing and will discharge patient after HD. will cont to monitor.
--- NOTE | 2019-04-27 19:17 | NUR ---
HAND-OFF: Report given to Minsu.
--- NOTE | 2019-04-27 19:30 | NUR ---
NURSE NOTES: Received report from MICHAEL Barrios. Patient awake and verbally responsive with confusion. Breathing unlabored on room air without distress. No IV access, MD aware. Bed placed at the lowest with alarm, brake, and siderails up for safety. Call light placed within reach. Ready for discharge. Will continue to monitor and provide care as ordered.
--- NOTE | 2019-04-27 20:15 | NUR ---
NURSE NOTES: WCP taken and provided new dressing change on sacral and bilateral heels. Will continue to monitor and await for [facility] to arrive.
[2019-04-27] MEDS: Atorvastatin 20mg tab ORAL SCH (21:00)
[2019-04-27] MEDS ORDERED: Epoetin Alfa-EPBX(ESRD on dialysis)4000 units/ml vial SUBQ SCH (21:00)
[2019-04-27] MEDS ORDERED: Epoetin Alfa-EPBX(ESRD on dialysis)3000 units/ml vial SUBQ SCH (21:00)
--- NOTE | 2019-04-27 21:50 | NUR ---
NURSE NOTES: [facility] arrived. Given report. Documents handed for nursing facility. Patient awake and verbally responsive. Breathing on room air without distress. No s/s or complaint of pain at this time. Vital signs stable BP:126/71 HR 85 RR18, refused [id number] and temperature. Skin assessed and pictures taken for documentation. Belongings confirmed with previous shift RN. Patient unable to sign the belongings paper. No IV access. DAVID AV shunt noted with bruit and thrill with dry dressing. Informed the transporters about the DAVID AV Shunt. Patient safety transferred to [facility] with staff assist and left the unit in stable condition. ID band removed confidentially.
--- NOTE | 2019-04-28 00:30 | Discharge Summary ---
DATE OF ADMISSION: 04/21/2019 DATE OF DISCHARGE: 04/27/2019 ADMISSION DIAGNOSES: 1. End-stage renal disease. 2. Toxic metabolic encephalopathy. 3. Hyperkalemia. 4. Sepsis. 5. Possible pneumonia. DISCHARGE DIAGNOSES: 1. End-stage renal disease. 2. Toxic metabolic encephalopathy. 3. Hyperkalemia. 4. Sepsis. 5. Possible pneumonia. HOSPITAL COURSE: The patient is a 73-year-old female with a history of end-stage renal disease and hypertension. She was admitted because she refused to go to dialysis for three days. She continued to refuse dialysis in the hospital. She was seen by Psychiatry and felt not to have capacity to make decisions. She did eventually agree to dialysis. She was noted to have leukocytosis and possible evidence of pneumonia. She was given intravenous antibiotics. On discharge, she was stable. She will be discharged back to the retirement facility on oral antibiotic therapy. DISCHARGE MEDICATIONS: Please see discharge medication list for discharge medications. DIET: Renal diet. ACTIVITY: Ad-cristóbal. FOLLOWUP: The patient will follow up in one to two days at retirement facility. Freddy Quevedo M.D. DR: JESSICA JOB#: [id number] CC:
--- NOTE | 2019-04-28 02:45 | Progress Note ---
DATE: 04/27/2019 CARDIOLOGY PROGRESS NOTE SUBJECTIVE: No chest pain. No shortness of breath. Agreeable now to take dialysis as an outpatient on a regular schedule. OBJECTIVE: VITAL SIGNS: Blood pressure 110/58 to 148/67, heart rate 86 to 98, respiratory rate 16 to 19, and she is afebrile. T-max 99.6. LUNGS: Diminished breath sounds. CARDIAC: Regular rhythm and rate. Normal S1 and S2 with a fourth heart sound. ABDOMEN: Soft. EXTREMITIES: No edema. IMPRESSION: 1. End-stage renal disease. 2. Anemia of chronic kidney disease. 3. Hypertensive heart disease with adequate blood pressure control. 4. Acute on chronic diastolic congestive heart failure, precipitated by missed dialysis sessions. 5. Cerebrovascular disease with dementia and agitation. PLAN: 1. Outpatient dialysis. 2. Continue current cardiovascular regimen without change. 3. Discharge planning. Bulmaro Hester M.D. DR: SAYRA JOB#: [id number] CC:
[2019-04-30] MEDS ORDERED: Vitamin D 50,000 units cap ORAL SCH (09:00)
== END 2019-04-27 21:50 | DRG 291 ==
LOC: EDBD 15:12 → EMR 15:35 → EDBEDREQ 16:09 → 2E 16:25 → EDBEDREQ 17:43 → 4E 04-26 15:52
DX: I13.2 Hypertensive heart and chronic kidney disease with heart failure and with stage 5 chronic kidney disease, or end stage renal disease (principal); N18.6 End stage renal disease; I50.33 Acute on chronic diastolic (congestive) heart failure; G92 Toxic encephalopathy; A41.9 Sepsis, unspecified organism; J18.9 Pneumonia, unspecified organism; I69.954 Hemiplegia and hemiparesis following unspecified cerebrovascular disease affecting left non-dominant side; Z91.15 Patient's noncompliance with renal dialysis; E78.5 Hyperlipidemia, unspecified; D63.1 Anemia in chronic kidney disease; R00.0 Tachycardia, unspecified; R32 Unspecified urinary incontinence; F32.9 Major depressive disorder, single episode, unspecified; F03.90 Unspecified dementia, unspecified severity, without behavioral disturbance, psychotic disturbance, mood disturbance, and anxiety; E87.5 Hyperkalemia; D72.829 Elevated white blood cell count, unspecified
CPT/HCPCS: 36415; 71045; 80048; 80053; 80061; 82550; 83735; 84443; 85025; 87040; 87081; 93005; 99285

== ENCOUNTER 2019-06-04 15:15 | Inpatient (IN) | payer MEDICARE, OTHER ==
[~2019-06-04] VITALS: Ht 170.2 cm; Wt 58.5 kg
[~2019-06-04 15:15] MED LIST changes: +DULCOLAX10 MG RC; +FLEET ENEMA133 ML RECTAL; +LEVAQUIN500 MG ORAL; +MILK OF MA400 MG/51 ORAL
[2019-06-04 15:25] VITALS: BP 143/73
--- NOTE | 2019-06-04 15:42 | NUR ---
ED Nurse Note: Patient arrived by EMS from [facility]. Staff told EMS that patient is refusing dialysis, last dialysis was last . Patient also c/o of vaginal pain 03/01/ Patient AxO x 2. No s/s of acute distress.
--- NOTE | 2019-06-04 15:51 | Emergency Room Report ---
History of Present Illness General Chief Complaint: General Complaint Source: EMS Present Illness HPI Disclaimer: Please note that this report is being documented using DRAGON technology. This can lead to erroneous entry secondary to incorrect interpretation by the dictating instrument. HPI: 74-year-old female with a history of ESRD on hemodialysis presents from nursing facility for refusing hemodialysis. She has done this in the past and determined to lack the capacity to make her own medical decisions. Patient cannot recall her last dialysis. She says she is not refusing but cannot recall her last session. EMS states it was (4 days ago) but do not know her normal schedule. She denies any weakness, shortness of breath, dizziness, chest pain. She is complaining of dysuria, urinary frequency and urgency. Denies fever or chills. Denies vomiting or diarrhea. No exacerbating or alleviating symptoms. PMH: Dementia, ESRD PSH: Fistula formation Allergies: None reported Social Hx: None reported Allergies: Coded Allergies: No Known Allergies (Unverified , 02/27/19) Nursing Documentation-PMH Past Medical History: No History, Except For Hx Hypertension: Yes Hx Diabetes: Yes Hx Dialysis: Yes Hx Cerebrovascular Accident: Yes Review of Systems All Other Systems: negative except mentioned in HPI Physical Exam Vital Signs Date Time Temp Pulse Resp B/P (MAP) Pulse Ox O2 Delivery O2 Flow Rate FiO2 06/04/19 15:24 98.8 98 18 143/73 (96) 94 Room Air General: Awake and alert, no acute distress HEENT: NC/AT. EOMI. dry mucous membranes. Neck: Supple, trachea midline Chest Wall: No tenderness, no deformity Cardiovascular: RRR. S1 and S2 normal. Soft systolic ejection murmur heard at the left sternal border. Palpable thrill in the fistula in the left upper extremity Resp: Normal work of breathing. No cough, wheezing or crackles appreciated Abdomen: Abdomen is soft, nondistended. Tenderness to palpation in the lower pelvis without rebound or mass Skin: Intact. No abrasions, laceration or rash over the exposed skin MSK: Normal tone and bulk. Moving all extremities. No obvious deformity. Neuro: Awake and alert. Mentating appropriately. Procedures Critical Care Time Critical Care Time Total critical care time: Approximately 31 minutes Due to a high probability of clinically significant, life threatening deterioration, the patient required the highest level of preparedness to intervene emergently and I personally spent this critical care time directly and personally managing the patient. This critical care time included obtaining a history, examining the patient, pulse oximetry, ordering and reviewing studies , ordering treatments, evaluating response to treatment and updating management plan as needed, frequent reassessment and discussion with other providers as well as arranging for ultimate disposition. This critical to care time was performed to assess and manage the high probability of life-threatening deterioration that could result in multiorgan failure. This critical care time is separate from the separately billable procedures and treating other patients. Medical Decision Making Diagnostic Impression: Primary Impression: Hyperkalemia Additional Impression: ESRD (end stage renal disease) on dialysis ER Course 74-year-old female history of ESRD presents from nursing facility for refusing hemodialysis for the previous 2 sessions. Reportedly her last treatment was 4 days ago. She has done this in the past and determined to not have decision- making capacity. She states she is not refusing dialysis at this time and will do it if it is medically necessary. EKG on arrival does not show peaked T waves and is largely unremarkable. Will obtain IV access and blood work to determine if she has an emergent need for dialysis. Otherwise she is complaining of dysuria will obtain a urine sample to evaluate for UTI. Vital signs within normal limits and no other complaints at this time. Laboratory Tests Test 06/04/19 16:20 White Blood Count 10.6 K/UL (4.8-10.8) Red Blood Count 3.96 M/UL (4.20-5.40) L Hemoglobin 11.3 G/DL (12.0-16.0) L Hematocrit 34.0 % (37.0-47.0) L Mean Corpuscular Volume 86 FL (80-99) Mean Corpuscular Hemoglobin 28.4 PG (27.0-31.0) Mean Corpuscular Hemoglobin Concent 33.1 G/DL (32.0-36.0) Red Cell Distribution Width 11.7 % (11.6-14.8) Platelet Count 247 K/UL (150-450) Mean Platelet Volume 5.8 FL (6.5-10.1) L Neutrophils (%) (Auto) 44.4 % (45.0-75.0) L Lymphocytes (%) (Auto) 31.0 % (20.0-45.0) Monocytes (%) (Auto) 8.2 % (1.0-10.0) Eosinophils (%) (Auto) 14.6 % (0.0-3.0) H Basophils (%) (Auto) 1.7 % (0.0-2.0) Prothrombin Time 10.3 SEC (9.30-11.50) Prothrombin Time INR 1.0 (0.9-1.1) Urine Color Yellow Urine Appearance Clear Urine pH 6 (4.5-8.0) Urine Specific [place] 1.015 (1.005-1.035) Urine Protein 1+ (NEGATIVE) H Urine Glucose (UA) Negative (NEGATIVE) Urine Ketones Negative (NEGATIVE) Urine Blood Negative (NEGATIVE) Urine Nitrite Negative (NEGATIVE) Urine Bilirubin Negative (NEGATIVE) Urine Urobilinogen Normal MG/DL (0.0-1.0) Urine Leukocyte Esterase Negative (NEGATIVE) Urine RBC 0 /HPF (0 - 2) Urine WBC 0-2 /HPF (0 - 2) Urine Squamous Epithelial Cells Occasional /LPF Urine Bacteria Few /HPF (NONE) Urine Mucus Moderate /LPF (NONE/OCC) H Sodium Level 142 MMOL/L (136-145) Potassium Level 5.2 MMOL/L (3.5-5.1) H Chloride Level 103 MMOL/L (98-107) Carbon Dioxide Level 27 MMOL/L (21-32) Anion Gap 12 mmol/L (5-15) Blood Urea Nitrogen 56 mg/dL (7-18) H Creatinine 7.6 MG/DL (0.55-1.30) H Estimate Glomerular Filtration Rate mL/min (>60) Glucose Level 114 MG/DL (74-106) H Calcium Level 8.9 MG/DL (8.5-10.1) Total Bilirubin 0.4 MG/DL (0.2-1.0) Aspartate Amino Transferase (AST) 34 U/L (15-37) Alanine Aminotransferase (ALT) 25 U/L (12-78) Alkaline Phosphatase 103 U/L (46-116) Total Protein 8.3 G/DL (6.4-8.2) H Albumin 3.7 G/DL (3.4-5.0) Globulin 4.6 g/dL Albumin/Globulin Ratio 0.8 (1.0-2.7) L EKG Diagnostic Results EKG Time: 15:36 Rate: normal Rhythm: NSR ST Segments: no acute changes Other Impression Sinus rhythm, borderline left axis, normal intervals, no ST segment changes, no hyperacute T waves Rhythm Strip Diag. Results Rhythm Strip Time: 15:36 EP Interpretation: yes Rate: 90s Rhythm: NSR, no PVC's, no ectopy Reevaluation Time: 18:06 Last Vital Signs Date Time Temp Pulse Resp B/P (MAP) Pulse Ox O2 Delivery O2 Flow Rate FiO2 06/04/19 15:24 98.8 98 18 143/73 (96) 94 Room Air Reevaluation Impression Labs show an elevated potassium of 5.2. At this time there are no hyperacute T waves but the patient will be treated with IV calcium, insulin and glucose, Kayexalate until she can go for dialysis. She will be admitted to telemetry. Remainder of labs are within normal limits aside from the elevated creatinine consistent with her ESRD. Patient is agreeable to treatment at this time. Disposition: ADMITTED INPATIENT Condition: Serious Ryley Oliveira MD Jun 04, 2019 15:51
[2019-06-04] MEDS ORDERED: Morphine Sulfate 4mg/ml Inj (IV USE ONLY) IVP ONE (16:15)
[2019-06-04] MEDS ORDERED: Omnipaque-300 100ml vial INJ PRN (16:15)
[2019-06-04 17:00] LABS: APPEARANCE,URINE CLEAR; BILIRUBIN, URINE NEGATIVE (NEGATIVE); GLUCOSE, URINE (UA) NEGATIVE (NEGATIVE); KETONES,URINE NEGATIVE (NEGATIVE); LEUKOCYTE ESTERASE ,URINE NEGATIVE (NEGATIVE); NITRITE,URINE NEGATIVE (NEGATIVE); PH,URINE 6 (4.5-8.0); PROTEIN,URINE 1+ (NEGATIVE); UROBILINOGEN,URINE NORMAL MG/DL (0.0-1.0)
[2019-06-04 17:05] LABS: ANION GAP 12 mmol/L (5-15); BLOOD UREA NITROGEN 56 mg/dL (7-18); CALCIUM 8.9 MG/DL (8.5-10.1); CARBON DIOXIDE 27 MMOL/L (21-32); CHLORIDE 103 MMOL/L (98-107); CREATININE 7.6 MG/DL (0.55-1.30); POTASSIUM 5.2 MMOL/L (3.5-5.1); SODIUM 142 MMOL/L (136-145)
[2019-06-04 17:07] LABS: COLOR,URINE YELLOW
[2019-06-04 17:10] LABS: ALANINE AMINOTRANSFERASE 25 U/L (12-78); ALBUMIN 3.7 G/DL (3.4-5.0); ALBUMIN/GLOBULIN RATIO 0.8 (1.0-2.7); ALKALINE PHOSPHATASE 103 U/L (46-116); ASPARTATE AMINO TRANSFERASE 34 U/L (15-37); BILIRUBIN,TOTAL 0.4 MG/DL (0.2-1.0)
[2019-06-04 17:26] LABS: BASOPHILS % (AUTO) 1.7 % (0.0-2.0); EOSINOPHILS % (AUTO) 14.6 % (0.0-3.0); HEMOGLOBIN 11.3 G/DL (12.0-16.0); MEAN CORPUSCULAR VOLUME 86 FL (80-99); MONOCYTES % (AUTO) 8.2 % (1.0-10.0); NEUTROPHILS % (AUTO) 44.4 % (45.0-75.0); PLATELET COUNT 247 K/UL (150-450); RED BLOOD COUNT 3.96 M/UL (4.20-5.40); RED CELL DISTRIBUTION WIDTH 11.7 % (11.6-14.8); WHITE BLOOD COUNT 10.6 K/UL (4.8-10.8)
[2019-06-04] MEDS ORDERED: Sodium Polystyrene Sulfonate 15gm Powder ORAL ONE (17:30)
[2019-06-04] MEDS ORDERED: Calcium Gluconate 1gm/10ml vial IVP ONE (17:30)
[2019-06-04] MEDS ORDERED: Insulin Human Regular 100units/ml 3ml IV ONE (17:30)
[2019-06-04 18:24] VITALS: BP 142/78
--- NOTE | 2019-06-04 19:02 | NUR ---
HAND-OFF: Report given to Dwight Wilson RN.
--- NOTE | 2019-06-04 19:05 | NUR ---
ED Nurse Note: RECEIVED REPORT FROM HANG RODRIGUEZ. PT VSS, NAD. WILL CONTINUE TO MONITOR PT.
--- NOTE | 2019-06-04 19:15 | NUR ---
ED Nurse Note: SWABS SENT TO LAB. SKIN ASSESSMENT DONE. NO PRESSURE INJURY OR WOUND NOTED UPON EXAMINATION.
[2019-06-04 20:46] VITALS: BP 141/84
--- NOTE | 2019-06-04 20:53 | NUR ---
ED Nurse Note: GAVE REPORT TO MARIAMA RODRIGUEZ FOR -.
--- NOTE | 2019-06-04 21:00 | NUR ---
TRANSFER TO FLOOR: Patient transferred to [facility] via gurney accompanied by 2 RN as ordered, per dr. Quevedo . Report given to Evelyn RODRIGUEZ. Belongings sent with patient. LATRICE WHITE upon transfer.
--- NOTE | 2019-06-04 21:15 | NUR ---
NURSE NOTES: Patient arrived to the unit around 2104 via gurney, accompanied by 2 RN's. Received report from MICHAEL Antonio. Patient is awake and responsive, breathing regular and unlabored on RA with no s/s of SOB noted. IV access on R AC 20G, saline locked. Patient has a Left Upper arm fistula, bruit and thrill present. Placed patient on hospital monitor, NSR on monitor. Belongings list reviewed and signed with the ED nurse, belongings list is signed by the patient. Received admitting orders from Dr. Quevedo, orders noted and carried out. Patient denies any pain or discomfort at this time. Bed is in lowest position, breaks engaged, side-rails x3, bed-alarm on, and call light is within reach at all times. Patient is in stable condition, all other needs attended to, will continue to monitor.
[2019-06-04] MEDS ORDERED: Fleet's Enema 133ml RECTAL PRN (22:45)
[2019-06-04] MEDS ORDERED: Milk of Magnesia 30ml Ud ORAL PRN (22:45)
[2019-06-05] VITALS: BP 157/97
[2019-06-05 04:00] VITALS: BP 159/87
--- NOTE | 2019-06-05 05:38 | NUR ---
NURSE NOTES: Per Dr. Stringer inpatient Dialysis orders were put in, contacted [facility] dialysis and spoke to [facility] to schedule for routine dialysis for 06/05/19. Was informed that will receive a call back.
[2019-06-05] MEDS: HydrALAZINE 50mg tab ORAL SCH ×3 (06:27→22:16)
--- NOTE | 2019-06-05 07:27 | NUR ---
NURSE NOTES: Received report from Evelyn RODRIGUEZ. Patient is in bed resting, denies any pain at this time. Endorsed that patient will be dialyzed today, will follow up with [facility] dialysis. No s/s of any distress noted. IV is intact and patent. Bed is in lowest position and locked. All needs attended to and met. Call light is within reach. Will continue with the plan of care.
--- NOTE | 2019-06-05 07:44 | NUR ---
HAND-OFF: Report given to MICHAEL Mock. [place] in stable condition, plan of care endorsed.
[2019-06-05 08:00] VITALS: BP 149/77
[2019-06-05] MEDS: Aspirin Baby 81mg ORAL SCH (08:55)
[2019-06-05] MEDS: Docusate 100mg cap ORAL SCH ×2 (08:55→18:05)
[2019-06-05] MEDS: Heparin 5000 units/ml inj SUBQ SCH ×2 (08:57→21:08)
--- NOTE | 2019-06-05 09:00 | History and Physical Report ---
DATE OF ADMISSION: 06/04/2019 CHIEF COMPLAINT: Missed dialysis and hyperkalemia. HISTORY OF PRESENT ILLNESS: The patient is a 74-year-old female. She has a history of hypertensive heart disease, end-stage renal disease, and dementia. She was transferred because of missed dialysis on several occasions. She had been refusing to go to dialysis. Because of concern about volume overload and electrolyte abnormalities, she was sent to the emergency room. On evaluation there, the potassium was elevated at 5.2. She was not short of breath. But in light of her continued refusal of hemodialysis, she is now admitted for further evaluation and care. She is currently agreeable to dialysis. She is otherwise without complaints. PAST MEDICAL HISTORY: As above. PAST SURGICAL HISTORY: None. CURRENT MEDICATIONS: Reconciled and reviewed. ALLERGIES: None. FAMILY HISTORY: None. SOCIAL HISTORY: Negative for tobacco, ethanol, or drugs. REVIEW OF SYSTEMS: GENERAL: No fever or chills. HEENT: No headaches or visual changes. CARDIOPULMONARY: No chest pain or shortness of breath. GASTROINTESTINAL: No nausea or vomiting. GENITOURINARY: No urgency or frequency. MUSCULOSKELETAL: No joint pain or swelling. NEUROLOGIC: No evidence of seizures. PHYSICAL EXAMINATION: VITAL SIGNS: Temperature 98.1, pulse 101 respirations 96, and blood pressure 159/87. GENERAL: The patient is well developed, in no apparent distress. HEART: Regular rate and rhythm. LUNGS: Clear. ABDOMEN: Soft, nontender, and nondistended. EXTREMITIES: Without clubbing, cyanosis, or edema. LABORATORY DATA: White count 10, hemoglobin 11, hematocrit 34, and platelets 247,000. Sodium 142, potassium 5.2, bicarb 27. INR was 1. UA was clear. ASSESSMENT: This is a 74-year-old female with a history of end-stage renal disease, hypertension, encephalopathy, and dementia, admitted with complaints of hyperkalemia, uncontrolled hypertension, and missed dialysis. She is hyperkalemic. PLAN: 1. Renal consultation. 2. Hemodialysis. 3. Cardiology followup regarding the patient's antihypertensive regimen. 4. Psychiatric consultation will also be obtained. 5. We will otherwise continue the patient's outpatient medication regimen. 6. Compliance has been stressed. Freddy Quevedo M.D. DR: JESSICA JOB#: [id number] CC:
[2019-06-05 12:00] VITALS: BP 145/75
--- NOTE | 2019-06-05 14:35 | NUR ---
CASE MANAGEMENT:REVIEW 74 YR OLD FEMALE BIBA FROM [facility] CC: REFUSING DIALYSIS SI: HYPERKALEMIA. ESRD 98.8 98 18 143/73 94% ON RA K+5.2 BUN+56 CR+7.6 IS: IV MORPHINE IV CA GLUCONATE IV INSULIN KAYEXALATE CT ABD/PELVIS : TO TELEMETRY
[2019-06-05 16:00] VITALS: BP 154/79
--- NOTE | 2019-06-05 19:31 | NUR ---
HAND-OFF: Report given to MICHAEL Conrad.Patient is in stable condition.
[2019-06-05 20:00] VITALS: BP 158/81
[2019-06-05] MEDS: Atorvastatin 80mg tab ORAL SCH (21:04)
--- NOTE | 2019-06-06 01:15 | Consultation ---
DATE OF CONSULTATION: 06/05/2019 CONSULTING PHYSICIAN: Dylon Stringer M.D. REFERRING PHYSICIAN: Freddy Quevedo M.D. CHIEF COMPLAINT AND REASON FOR HOSPITALIZATION: The patient is admitted for end-stage renal disease, hyperkalemia, missed dialysis. HISTORY OF PRESENT ILLNESS: The patient is a resident of an [facility], has end-stage renal disease, on dialysis, followed by another physician. She has been refusing dialysis treatments and concern for fluid overload and hyperkalemia. PAST MEDICAL HISTORY: The patient has some dementia, hypertension, vitamin D deficiency, and end-stage renal disease. PAST SURGICAL HISTORY: Appendectomy and AV fistula in the left arm. ALLERGIES: None known. MEDICATIONS: At the [facility] include Tylenol p.r.n., amlodipine 10 mg daily, aspirin 81 mg daily, atorvastatin 40 mg daily, Dulcolax suppository p.r.n., DSS 100 mg twice a day, vitamin D 50,000 units once a week, hydralazine 100 mg every 8 hours, [place] as needed, levofloxacin 500 mg every other day duration unclear, MOM p.r.n., and Fleet enema p.r.n. HABITS: She is a former smoker. SYSTEM REVIEW: HEAD, EYES, EARS, NOSE, AND THROAT: She has decreased visual acuity. Hearing is good. ENDOCRINE: She is not aware of diabetes or thyroid disease. PULMONARY: No asthma or TB. She is not short of breath. CARDIAC: She is not aware of any myocardial infarction or arrhythmias. GASTROINTESTINAL: Denies nausea, vomiting, or abdominal pain. GENITOURINARY: She is incontinent. NEUROLOGIC: No history of focal paresis, but there is progressive dementia. PHYSICAL EXAMINATION: GENERAL: The patient is seen on dialysis, temperature 98.2, pulse 82, respirations 18, and blood pressure 145/75. HEAD EYES, EARS, NOSE, AND THROAT: Sclerae are nonicteric. Ocular motions intact in all directions. Oral mucosa moist. NECK: No adenopathy or thyroid enlargement. LUNGS: Clear. HEART: Rhythm is regular with a 2/6 systolic ejection murmur. ABDOMEN: Soft. No organomegaly. EXTREMITIES: Show trace edema. There is a left upper arm AV fistula. NEUROLOGIC: She is alert, but disoriented. Ocular motions intact in all directions. Smile symmetric. She moves all extremities. PERTINENT LABORATORY DATA: White count 10.6, hemoglobin 11.3. Sodium 142, potassium 5.2, BUN 56, and creatinine 7.6. Calcium 8.9. Albumin 3.7. Urinalysis shows 0 to 2 white cells per high-power field. IMPRESSION: 1. End-stage renal disease. 2. Status post missed dialysis. 3. Hypertensive heart disease. 4. History of dementia. 5. Possible underlying psychosis or depression, which may limit her cooperation for dialysis. PLAN: Medications reviewed for end-stage renal disease. She is seen on dialysis today, which should control her electrolytes and fluid balance. Further discussions will be made as far as her disposition with Dr. Quevedo. Dylon Stringer M.D. DR: GOLDEN JOB#: [id number] CC:
[2019-06-06 02:00] VITALS: BP 144/82
[2019-06-06 04:00] VITALS: BP 154/75
[2019-06-06] MEDS ORDERED: Heparin Sod 1000 units/ml 10ml IV ONE (05:45)
[2019-06-06] MEDS: HydrALAZINE 50mg tab ORAL SCH ×4 (06:00→20:57)
--- NOTE | 2019-06-06 07:29 | General Progress Note ---
Assessment/Plan Problem List: (1) Dementia ICD Codes: F03.90 - Unspecified dementia without behavioral disturbance SNOMED: 24213992 (2) Hypertensive nephrosclerosis ICD Codes: I12.9 - Hypertensive chronic kidney disease with stage 1 through stage 4 chronic kidney disease, or unspecified chronic kidney disease SNOMED: 946417507 (3) Anemia in chronic kidney disease ICD Codes: N18.9 - Chronic kidney disease, unspecified; D63.1 - Anemia in chronic kidney disease SNOMED: 788250165 (4) ESRD (end stage renal disease) on dialysis ICD Codes: N18.6 - End stage renal disease; Z99.2 - Dependence on renal dialysis SNOMED: 441689737 (5) Hyperkalemia ICD Codes: E87.5 - Hyperkalemia; Z99.2 - Dependence on renal dialysis SNOMED: 69743148 (6) CVA, old, cognitive deficits ICD Codes: I69.319 - Unspecified symptoms and signs involving cognitive functions following cerebral infarction SNOMED: 06734772, 802090882, 295406668, 375949629 Status: stable Assessment/Plan: compliance stressed bp rx psych eval Subjective ROS Limited/Unobtainable: No Constitutional: Reports: no symptoms HEENT: Reports: no symptoms Cardiovascular: Reports: no symptoms Respiratory: Reports: no symptoms Gastrointestinal/Abdominal: Reports: no symptoms Genitourinary: Reports: no symptoms Neurologic/Psychiatric: Reports: no symptoms Endocrine: Reports: no symptoms Hematologic/Lymphatic: Reports: no symptoms Allergies: Coded Allergies: No Known Allergies (Unverified , 02/27/19) All Systems: reviewed and negative except above Subjective uncooperative with care and meds at times. s/p HD yesterday. no cp/sob Objective Last 24 Hour Vital Signs Date Time Temp Pulse Resp B/P (MAP) Pulse Ox O2 Delivery O2 Flow Rate FiO2 06/06/19 04:00 95 06/06/19 02:00 98.1 93 18 144/82 (102) 97 06/06/19 00:00 89 06/05/19 22:16 160/89 06/05/19 21:00 Room Air 06/05/19 20:00 92 06/05/19 20:00 98.1 93 18 158/81 (106) 97 06/05/19 16:00 98.1 92 18 154/79 (104) 97 06/05/19 16:00 92 06/05/19 14:00 145/75 06/05/19 12:00 82 06/05/19 12:00 98.2 82 18 145/75 (98) 96 06/05/19 09:00 Room Air 06/05/19 08:55 90 149/77 06/05/19 08:00 96 06/05/19 08:00 97.8 90 18 149/77 (101) 98 Intake and Output 06/05/19 06/06/19 19:00 07:00 Intake Total 3120 ml Output Total 500 ml Balance 2620 ml Intake Oral 1120 ml Hemodialysis 2000 ml Output Urine Total 500 ml Stool Total 0 ml # Voids 1 Laboratory Tests 06/05/19 17:15: Hepatitis B Surface Antigen [Pending] Height (Feet): 5 Height (Inches): 7.00 Weight (Pounds): 129 General Appearance: WD/WN, alert Neck: supple Cardiovascular: regular rhythm Respiratory/Chest: lungs clear Abdomen: normal bowel sounds, non tender, soft, no organomegaly Edema: no edema noted Arm (L), no edema noted Arm (R), no edema noted Leg (L), no edema noted Leg (R), no edema noted Pedal (L), no edema noted Pedal (R), no edema noted Generalized Freddy Quevedo MD Jun 06, 2019 07:29
--- NOTE | 2019-06-06 07:30 | NUR ---
NURSE NOTES: Received pt from MATEUS RODRIGUEZ. Pt is awake and confused and eating breakfast by observation. pt is in RA, no SOB or acute respiratory distress noted. pt has intact iv access RH 20G SL. All needs attended, bed is locked and is in the lowest position, call light within easy reach. will continue to monitor.
[2019-06-06 08:00] VITALS: BP 157/91
[2019-06-06] MEDS: Aspirin Baby 81mg ORAL SCH (08:46)
[2019-06-06] MEDS: Docusate 100mg cap ORAL SCH ×2 (08:46→17:42)
[2019-06-06] MEDS: Heparin 5000 units/ml inj SUBQ SCH ×2 (08:51→21:11)
[2019-06-06 12:00] VITALS: BP 157/77
--- NOTE | 2019-06-06 12:15 | Progress Note ---
DATE: 06/05/2019 CARDIOLOGY PROGRESS NOTE SUBJECTIVE: The patient had hemodialysis with ultrafiltration today. She was cooperative. She complains of some irritation in her vaginal area. She denies any shortness of breath. OBJECTIVE: VITAL SIGNS: Blood pressure 145/75, heart rate 82, respiratory rate 18. LUNGS: Clear. CARDIAC: Regular. Normal S1, S2 with a fourth heart sound and a 1/6 systolic murmur at the apex. ABDOMEN: Soft. EXTREMITIES: There is no edema. VAGINAL: Vaginal area was examined with a nurse and there appears to be some signs of tinea cruris. LABORATORY DATA: Urinalysis, no active sediment. IMPRESSION: 1. Hypertensive heart disease. 2. Labile blood pressure. 3. End-stage renal disease. 4. Cerebrovascular disease with dementia and agitation. 5. Acute on chronic diastolic congestive heart failure. 6. Hyperkalemia and volume overload due to missed dialysis session prior to admission. 7. Hyperlipidemia, on statin therapy. 8. Perineal fungal skin infection. PLAN: 1. Continue regular hemodialysis and ultrafiltration session. 2. Titrate antihypertensive regimen. 3. Avoid tight blood pressure control due to orthostatic potential. 4. Anti-platelet therapy. 5. Skin care and antifungal therapy. Clover Munson JOB#: [id number] CC:
[2019-06-06 15:57] VITALS: BP 109/72
--- NOTE | 2019-06-06 17:51 | Nephrology Progress Note ---
Assessment/Plan Problem List: (1) ESRD (end stage renal disease) on dialysis (2) Hyperkalemia (3) Dementia (4) Hypertensive nephrosclerosis (5) Anemia in chronic kidney disease (6) CVA, old, cognitive deficits Plan HD 06/07 , diflucan for possible vaginitis Subjective Constitutional: Reports: weakness HEENT: Reports: no symptoms Genitourinary: Reports: other - possible vaginitis Neurologic/Psychiatric: Reports: pre-existing deficit Objective Objective Last 24 Hour Vital Signs Date Time Temp Pulse Resp B/P (MAP) Pulse Ox O2 Delivery O2 Flow Rate FiO2 06/06/19 15:57 98.0 69 20 109/72 (84) 99 06/06/19 13:28 157/77 06/06/19 12:00 98.0 90 20 157/77 (103) 98 06/06/19 11:39 88 06/06/19 09:00 Room Air 06/06/19 08:46 95 157/91 06/06/19 08:04 93 06/06/19 08:00 98.1 95 20 157/91 (113) 06/06/19 04:00 98.0 93 18 154/75 (101) 06/06/19 04:00 95 06/06/19 02:00 98.1 93 18 144/82 (102) 97 06/06/19 00:00 89 06/05/19 22:16 160/89 06/05/19 21:00 Room Air 06/05/19 20:00 92 06/05/19 20:00 98.1 93 18 158/81 (106) 97 Intake and Output 06/05/19 06/06/19 19:00 07:00 Intake Total 3120 ml 350 ml Output Total 500 ml 700 ml Balance 2620 ml -350 ml Intake Oral 1120 ml 350 ml Hemodialysis 2000 ml Output Urine Total 500 ml 700 ml Stool Total 0 ml 0 ml # Voids 1 Height (Feet): 5 Height (Inches): 7.00 Weight (Pounds): 129 General Appearance: no apparent distress, alert, confused EENT: normal ENT inspection Neck: normal alignment, supple Cardiovascular: normal rate, regular rhythm Respiratory/Chest: lungs clear Extremities: no edema Neurologic: motor weakness Dylon Stringer MD Jun 06, 2019 17:51
[2019-06-06] MEDS ORDERED: Fluconazole 100mg tab ORAL SCH (17:55)
--- NOTE | 2019-06-06 18:04 | NUR ---
NURSE NOTES: RN called [facility] and elliot is aware about HD for tomorrow. will continue to monitor.
--- NOTE | 2019-06-06 19:31 | NUR ---
HAND-OFF: Report given to ANA RODRIGUEZ. Pt is awake and stable.
[2019-06-06 20:00] VITALS: BP 155/75
[2019-06-06] MEDS: Atorvastatin 80mg tab ORAL SCH (20:57)
[2019-06-07] VITALS: BP 158/86
--- NOTE | 2019-06-07 03:15 | Progress Note ---
DATE: 06/06/2019 CARDIOLOGY PROGRESS NOTE SUBJECTIVE: The patient has no chest pain. Complains of shortness of breath today. She is status post hemodialysis with ultrafiltration yesterday. Prior to admission, she was uncooperative with care and medication compliance, and missed dialysis sessions at times. OBJECTIVE: VITAL SIGNS: Blood pressure 144/82 to 158/81, heart rate 93, respiratory rate 18, and afebrile. LUNGS: Clear. CARDIAC: Regular. Normal S1, S2 with a fourth heart sound and a 1/6 systolic apical murmur. ABDOMEN: Soft. EXTREMITIES: No edema. IMPRESSION: 1. Acute on chronic diastolic congestive heart failure. 2. Volume overload due to missed dialysis sessions and medication noncompliance. 3. Hypertensive heart disease with labile blood pressure. 4. End-stage renal disease. 5. Cerebrovascular disease with dementia. PLAN: 1. Psych evaluation. 2. Encourage compliance with outpatient hemodialysis session. 3. Advance anti-failure regimen with the addition of a beta-franck. Bulmaro Hester M.D. DR: Linda JOB#: [id number] CC:
--- NOTE | 2019-06-07 03:45 | Consultation ---
DATE OF CONSULTATION: 06/04/2019 CARDIOLOGY CONSULTATION CONSULTING PHYSICIAN: Bulmaro Hester M.D. REFERRING PHYSICIAN: Freddy Quevedo M.D. REASON FOR CONSULTATION: Acute on chronic diastolic congestive heart failure in the setting of hyperkalemia and end-stage renal disease. HISTORY OF PRESENT ILLNESS: This is a 74-year-old female with end-stage renal disease on hemodialysis. She does have dementia and episodes of agitation. She has been refusing to go to dialysis for several sessions and has had worsening shortness of breath, swelling and abnormal lab studies on evaluation in the emergency room including an elevated potassium level. I have been asked to assist with further cardiovascular care. PAST MEDICAL HISTORY: CVA with left-sided weakness, dementia with agitation, hypertensive heart disease, end-stage renal disease, left upper extremity AV fistula, vitamin D deficiency, chronic constipation, and hyperlipidemia. ALLERGIES: None. SOCIAL HISTORY: No record of smoking, alcohol, or substance abuse. MEDICATIONS: Reviewed and reconciled. FAMILY HISTORY: Not known. REVIEW OF SYSTEMS: Cannot be reliably obtained from the patient. She was hospitalized here. Of note, she was hospitalized here in April 2019. At that time, she was treated for electrolyte imbalances and heart failure with uncontrolled blood pressure and stabilized prior to discharge. PHYSICAL EXAMINATION: VITAL SIGNS: Blood pressure 143/73, pulse 98, respirations 18, afebrile. GENERAL: Mild left-sided weakness. Alert, but slightly confused. HEENT: Temporal wasting. Arcus senilis. Oropharynx clear. NECK: Supple. Jugular venous pressure is slightly elevated. LUNGS: Clear breath sounds. CARDIAC: Regular rhythm and rate. Normal S1, S2. Point of maximal impulse sustained. There is a normal S1 and S2 with a 1/6 systolic ejection murmur at the base. ABDOMEN: Soft and nontender. EXTREMITIES: No edema. Palpable bruit over left upper extremity. LABORATORY DATA: White count 10.6, hemoglobin 11.3. Urinalysis with no active sediment. Glucose is 114. Sodium 142, potassium 5.2, bicarb 27, BUN 56, and creatinine 7.6. Albumin 3.7. EKG - sinus rhythm, leftward axis. No T-wave abnormalities. IMPRESSION: 1. Acute on chronic diastolic congestive heart failure. 2. Hypertensive heart disease. 3. End-stage renal disease. 4. Hyperkalemia. 5. Cerebrovascular disease with dementia, confusion, and agitation leading to noncompliance with life-sustaining hemodialysis sessions. PLAN: 1. Cardiac monitoring. 2. Kayexalate. 3. May need neuroleptic therapy to proceed with the urgent hemodialysis and ultrafiltration. 4. Titrate antihypertensive regimen based on clinical parameters. Bulmaro Hester M.D. DR: KYLAH JOB#: [id number] CC:
[2019-06-07 04:00] VITALS: BP 147/91
[2019-06-07] MEDS: HydrALAZINE 50mg tab ORAL SCH ×3 (05:58→21:45)
[2019-06-07] MEDS ORDERED: Heparin Sod 1000 units/ml 10ml IV PRN (06:00)
--- NOTE | 2019-06-07 07:29 | General Progress Note ---
Assessment/Plan Problem List: (1) Dementia ICD Codes: F03.90 - Unspecified dementia without behavioral disturbance SNOMED: 69760261 (2) Hypertensive nephrosclerosis ICD Codes: I12.9 - Hypertensive chronic kidney disease with stage 1 through stage 4 chronic kidney disease, or unspecified chronic kidney disease SNOMED: 403235064 (3) Anemia in chronic kidney disease ICD Codes: N18.9 - Chronic kidney disease, unspecified; D63.1 - Anemia in chronic kidney disease SNOMED: 379290454 (4) ESRD (end stage renal disease) on dialysis ICD Codes: N18.6 - End stage renal disease; Z99.2 - Dependence on renal dialysis SNOMED: 651569096 (5) Hyperkalemia ICD Codes: E87.5 - Hyperkalemia; Z99.2 - Dependence on renal dialysis SNOMED: 33162916 (6) CVA, old, cognitive deficits ICD Codes: I69.319 - Unspecified symptoms and signs involving cognitive functions following cerebral infarction SNOMED: 03053789, 180069716, 355425571, 006093576 Status: stable Assessment/Plan: compliance stressed bp rx psych eval Subjective ROS Limited/Unobtainable: No Constitutional: Reports: malaise, weakness HEENT: Reports: no symptoms Cardiovascular: Reports: no symptoms Respiratory: Reports: no symptoms Gastrointestinal/Abdominal: Reports: no symptoms Genitourinary: Reports: no symptoms Neurologic/Psychiatric: Reports: anxiety, emotional problems Endocrine: Reports: no symptoms Hematologic/Lymphatic: Reports: no symptoms Allergies: Coded Allergies: No Known Allergies (Unverified , 02/27/19) All Systems: reviewed and negative except above Subjective no new complaints. no cp/sob. compliant with meds and diet Objective Last 24 Hour Vital Signs Date Time Temp Pulse Resp B/P (MAP) Pulse Ox O2 Delivery O2 Flow Rate FiO2 06/07/19 05:58 147/97 06/07/19 04:00 82 06/07/19 04:00 97.7 84 20 147/91 (109) 06/07/19 00:00 97.5 90 20 158/86 (110) 06/07/19 00:00 83 06/06/19 21:00 Room Air 06/06/19 20:57 155/75 06/06/19 20:00 91 06/06/19 20:00 97.7 85 20 155/75 (101) 95 06/06/19 18:20 98.0 06/06/19 17:52 95 06/06/19 15:57 98.0 69 20 109/72 (84) 99 06/06/19 13:28 157/77 06/06/19 12:00 98.0 90 20 157/77 (103) 98 06/06/19 11:39 88 06/06/19 09:00 Room Air 06/06/19 08:46 95 157/91 06/06/19 08:04 93 06/06/19 08:00 98.1 95 20 157/91 (113) Intake and Output 06/06/19 06/07/19 19:00 07:00 Intake Total 1200 ml Balance 1200 ml Intake Oral 1200 ml # Voids 4 Height (Feet): 5 Height (Inches): 7.00 Weight (Pounds): 129 General Appearance: WD/WN, alert Neck: supple Cardiovascular: regular rhythm Respiratory/Chest: chest wall non-tender, lungs clear, normal breath sounds, no respiratory distress Abdomen: normal bowel sounds, non tender, soft, no organomegaly Edema: no edema noted Arm (L), no edema noted Arm (R), no edema noted Leg (L), no edema noted Leg (R), no edema noted Pedal (L), no edema noted Pedal (R), no edema noted Generalized Freddy Quevedo MD Jun 07, 2019 07:29
--- NOTE | 2019-06-07 07:30 | NUR ---
NURSE NOTES: Received pt from ANA RODRIGUEZ. Pt is awake and confused and eating breakfast by observation. pt is in RA, no SOB or acute respiratory distress noted. pt has intact iv access RFA 20G SL. Pt has schedule for HD today. All needs attended, bed is locked and is in the lowest position, call light within easy reach. will continue to monitor.
[2019-06-07 08:00] VITALS: BP 149/75
--- NOTE | 2019-06-07 08:17 | NUR ---
NURSE NOTES: RN called Dr RIVAS regarding VRE rectum, left massage, waiting to call back. will continue to monitor.
--- NOTE | 2019-06-07 08:35 | NUR ---
NURSE NOTES: Dr RIVAS called back regarding VRE rectum, no new order to RN. Will continue to monitor.
[2019-06-07] MEDS: Docusate 100mg cap ORAL SCH ×2 (09:00→18:39)
[2019-06-07] MEDS: Metoprolol Succinate XL 25mg tab ORAL SCH (09:00)
[2019-06-07] MEDS: Heparin 5000 units/ml inj SUBQ SCH ×2 (09:00→21:46)
[2019-06-07] MEDS: Aspirin Baby 81mg ORAL SCH (09:00)
--- NOTE | 2019-06-07 09:54 | NUR ---
NURSE NOTES: computers were frozen so meds administered manually and BP meds NAD HEPARIN didn't administered to pt due to schedule for HD and wasted in med room. will continue to monitor.
--- NOTE | 2019-06-07 10:15 | NUR ---
CASE MANAGEMENT:REVIEW 06/07/19 SI:HYPERKALEMIA. DEMENTIA. ESRD 97.4 87 20 149/75 96% ON RA IS; TOPROL XL PO QD RISPERDAL PO BID NORVASC PO QD ASA PO QD HYDRALAZINE PO Q8HRS HEPARIN SQ Q12 LIPITOR PO QHS : TELEMETRY STATUS DCP: FROM [facility]
[2019-06-07 12:00] VITALS: BP 132/71
[2019-06-07 16:00] VITALS: BP 120/65
--- NOTE | 2019-06-07 17:00 | NUR ---
NURSE NOTES: HD finished with 2lit out put. pt is stable, V/S stable. will continue to monitor.
--- NOTE | 2019-06-07 19:15 | NUR ---
NURSE NOTES: Received report from MICHAEL Sr. Patient is awake, lying in semi azul's; resting comfortably. A/Ox2. No signs of pain or distress noted. Checked IV site and flushed. No erythema, bleeding or infiltration noted. Bed at lowest position, brakes on, siderailsx3. Call light within reach. Will continue to monitor.
--- NOTE | 2019-06-07 19:17 | NUR ---
HAND-OFF: Report given to ISAAK RODRIGUEZ. Pt is awake and stable.
[2019-06-07 20:00] VITALS: BP 140/76
--- NOTE | 2019-06-07 20:25 | Nephrology Progress Note ---
Assessment/Plan Problem List: (1) ESRD (end stage renal disease) on dialysis (2) Hyperkalemia (3) Dementia (4) Hypertensive nephrosclerosis (5) Anemia in chronic kidney disease (6) CVA, old, cognitive deficits Plan HD 06/07 , diflucan for possible vaginitis try to gain cooperation with hd Subjective Constitutional: Reports: weakness HEENT: Reports: no symptoms Genitourinary: Reports: no symptoms Neurologic/Psychiatric: Reports: pre-existing deficit Objective Objective Last 24 Hour Vital Signs Date Time Temp Pulse Resp B/P (MAP) Pulse Ox O2 Delivery O2 Flow Rate FiO2 06/07/19 19:10 97.9 06/07/19 16:00 97.9 100 20 120/65 (83) 95 06/07/19 15:32 98 06/07/19 14:00 132/71 06/07/19 12:00 98.2 80 20 132/71 (91) 99 06/07/19 11:31 83 06/07/19 09:00 Room Air 06/07/19 09:00 87 149/75 06/07/19 09:00 87 149/75 06/07/19 08:00 97.4 87 20 149/75 (99) 96 06/07/19 07:38 80 06/07/19 05:58 147/97 06/07/19 04:00 82 06/07/19 04:00 97.7 84 20 147/91 (109) 06/07/19 00:00 97.5 90 20 158/86 (110) 06/07/19 00:00 83 06/06/19 21:00 Room Air 06/06/19 20:57 155/75 Intake and Output 06/06/19 06/07/19 19:00 07:00 Intake Total 1200 ml Balance 1200 ml Intake Oral 1200 ml # Voids 4 Height (Feet): 5 Height (Inches): 7.00 Weight (Pounds): 129 General Appearance: alert, confused EENT: normal ENT inspection Neck: normal alignment Cardiovascular: normal rate, regular rhythm Respiratory/Chest: lungs clear Abdomen: soft Extremities: non-tender, no edema Neurologic: motor weakness Dylon Stringer MD Jun 07, 2019 20:25
[2019-06-07] MEDS: Atorvastatin 80mg tab ORAL SCH (21:45)
[2019-06-08] VITALS: BP 119/68
--- NOTE | 2019-06-08 00:32 | NUR ---
NURSE NOTES: Resting throughout the night. No significant change of condition noted. Will continue to monitor.
[2019-06-08 04:00] VITALS: BP 122/73
--- NOTE | 2019-06-08 05:00 | Progress Note ---
DATE: 06/07/2019 CARDIOLOGY PROGRESS NOTE SUBJECTIVE: The patient has no new complaints. Compliant now with medications and diet. Status post hemodialysis and ultrafiltration. OBJECTIVE: VITAL SIGNS: Blood pressure is 147/97, pulse 84, respirations 18, and afebrile. Following dialysis. LUNGS: Clear. CARDIAC: Regular. ABDOMEN: Soft. EXTREMITIES: No edema. Palpable bruit. Improved blood pressure post dialysis. IMPRESSION: Improved. PLAN: 1. Maintain current cardiovascular regimen. 2. Discharge planning. Bulmaro Hester M.D. DR: JEANNE JOB#: [id number] CC:
[2019-06-08] MEDS: HydrALAZINE 50mg tab ORAL SCH (05:58)
--- NOTE | 2019-06-08 06:00 | NUR ---
NURSE NOTES: Gave Hydralazine medication. Patient took 1 tablet and refused to take the other tablet. Explained risk and benefit x3. Charge nurse made aware.
--- NOTE | 2019-06-08 06:30 | NUR ---
NURSE NOTES: Tried to offer again 1 tab of Hydralazine medication. Patient is uncooperative and refuses to take medication. Charge nurse made aware.
--- NOTE | 2019-06-08 07:00 | NUR ---
NURSE NOTES: 0700 Charge nurse intervene and tried to offer 1 tab of Hydralazine Patient stated, "Leave me alone. Leave me alone." Explained risk and benefit x3. Wasted 1 tab of hydralazine medication.
--- NOTE | 2019-06-08 07:15 | NUR ---
HAND-OFF: Report given to MICHAEL Sr. Plan of care endorsed.
--- NOTE | 2019-06-08 07:15 | NUR ---
NURSE NOTES: Dr. Quevedo made aware of refusal of medication.
--- NOTE | 2019-06-08 07:15 | Progress Note ---
DATE: 06/07/2019 SUBJECTIVE: The patient is . No acute distress. Confused. Did not know the date. She has episodes of agitation. MENTAL STATUS EXAMINATION: The patient is alert, oriented times self. Mood is anxious. Affect is flat. Thought process, there is a paucity of thought content. Thought content, no suicidal or homicidal ideation. Cognition is impaired. ASSESSMENT: Dementia with behavior disturbance. PLAN: 1. We will continue the risperidone 1 mg p.o. b.i.d. 2. We will continue to follow and readjust the medications. Binh Baltazar M.D. DR: Samson JOB#: [id number] CC:
[2019-06-08] MEDS ORDERED: RISPERDAL1 MG ORAL (07:27)
--- NOTE | 2019-06-08 07:30 | NUR ---
NURSE NOTES: Received pt from Sravanthi RODRIGUEZ. Pt is awake and confused and eating breakfast by observation. pt is in RA, no SOB or acute respiratory distress noted. pt has intact iv access RFA 20G SL. All needs attended, bed is locked and is in the lowest position, call light within easy reach. will continue to monitor.
[2019-06-08 08:00] VITALS: BP 118/61
--- NOTE | 2019-06-08 08:27 | Nephrology Progress Note ---
Assessment/Plan Problem List: (1) ESRD (end stage renal disease) on dialysis (2) Hyperkalemia (3) Dementia (4) Hypertensive nephrosclerosis (5) Anemia in chronic kidney disease (6) CVA, old, cognitive deficits Plan HD 06/07 , diflucan for possible vaginitis try to gain cooperation with hd Subjective ROS Limited/Unobtainable: Yes Objective Objective Last 24 Hour Vital Signs Date Time Temp Pulse Resp B/P (MAP) Pulse Ox O2 Delivery O2 Flow Rate FiO2 06/08/19 05:58 140/72 06/08/19 04:00 86 06/08/19 04:00 98.2 77 20 122/73 (89) 97 06/08/19 00:00 92 06/08/19 00:00 97.0 84 18 119/68 (85) 97 06/07/19 21:45 140/76 06/07/19 21:00 Room Air 06/07/19 20:00 96.8 99 18 140/76 (97) 97 06/07/19 20:00 102 06/07/19 19:10 97.9 06/07/19 16:00 97.9 100 20 120/65 (83) 95 06/07/19 15:32 98 06/07/19 14:00 132/71 06/07/19 12:00 98.2 80 20 132/71 (91) 99 06/07/19 11:31 83 06/07/19 09:00 Room Air 06/07/19 09:00 87 149/75 06/07/19 09:00 87 149/75 Intake and Output 06/07/19 06/08/19 19:00 07:00 Intake Total 320 ml 2000 ml Balance 320 ml 2000 ml Intake Oral 320 ml Hemodialysis 2000 ml # Voids 2 2 Height (Feet): 5 Height (Inches): 7.00 Weight (Pounds): 129 General Appearance: no apparent distress, confused EENT: normal ENT inspection Neck: normal alignment Cardiovascular: normal rate Respiratory/Chest: lungs clear Abdomen: non tender Extremities: no edema Neurologic: motor weakness Dylon Stringer MD Jun 08, 2019 08:27
--- NOTE | 2019-06-08 09:00 | Discharge Summary ---
DATE OF ADMISSION: 06/04/2019 DATE OF DISCHARGE: 06/08/2019 ADMISSION DIAGNOSES: 1. End-stage renal disease. 2. Toxic metabolic encephalopathy secondary to missed dialysis. 3. Hypertension. 4. History of noncompliance. DISCHARGE DIAGNOSES: 1. End-stage renal disease. 2. Toxic metabolic encephalopathy secondary to missed dialysis. 3. Hypertension. 4. History of noncompliance. HOSPITAL COURSE: The patient was admitted because of missed dialysis. She was hyperkalemic and more confused. She also been noncompliant with medications at the [facility]. She received hemodialysis as well as her regular blood pressure medications. She continued to be noncompliant at times with medications, but on discharge she was more compliant. Her nonessential medications were discontinued. The patient will be discharged with continued hemodialysis and cardiac medications. DISCHARGE MEDICATIONS: Please see discharge medication list for discharge medications. DIET: Renal cardiac diet. ACTIVITIES: Ad-cristóbal. FOLLOWUP: The patient will be followed in 1 to 2 days at the [facility]. Freddy Quevedo M.D. DR: JAYANT JOB#: [id number] CC:
[2019-06-08 09:54] VITALS: BP 118/61
[2019-06-08] MEDS: Aspirin Baby 81mg ORAL SCH (09:54)
[2019-06-08] MEDS: Docusate 100mg cap ORAL SCH (09:54)
[2019-06-08] MEDS: Metoprolol Succinate XL 25mg tab ORAL SCH (09:54)
[2019-06-08] MEDS: Heparin 5000 units/ml inj SUBQ SCH (09:54)
--- NOTE | 2019-06-08 09:57 | NUR ---
NURSE NOTES: pt refused all morning meds xd3 attempts, explained risks and benefits, Dr RIVAS is aware, no new order to RN. Will continue to monitor.
--- NOTE | 2019-06-08 11:45 | NUR ---
NURSE NOTES: PT HAS DISCHARGE ORDER, ALL d/c ASSESSMENTS AND INSTRUCTIONS DONE. PT IS STABLE, v/s STABLE. PT HAS A RING PUTTING ON.REPORT GIVEN TO SNF NURSE IDA, SHE KNOWS ABOUT HD FOR TOMORROW. SKIN IS INTACT, PICTURE UPLOADED. IV ACCESS D/C. PT'S BROTHER SALIMA KNOWS ABOUT D/C. PT LEFT HOSPITAL WITH ACCOMPANY OF AMBULANCE PERSONNEL.
--- NOTE | 2019-06-08 16:45 | Progress Note ---
DATE: 06/08/2019 CARDIOLOGY PROGRESS NOTE SUBJECTIVE: The patient has no chest pain or shortness of breath. She had hemodialysis with ultrafiltration yesterday. Monitored rhythm sinus with rare atrial and ventricular ectopics. OBJECTIVE: VITAL SIGNS: Blood pressure 118/61, pulse 89, respirations 16, afebrile. LUNGS: Clear. CARDIAC: Regular. Normal S1, S2 with a fourth heart sound. ABDOMEN: Soft. EXTREMITIES: No edema. Palpable bruit over AV fistula. IMPRESSION: 1. Compensated hemodynamically following resumption of regular hemodialysis and ultrafiltration sessions. 2. Hypertension, controlled. 3. Acute on chronic diastolic congestive heart failure, compensated. 4. Cerebrovascular disease with dementia and agitation now with better compliance. PLAN: 1. Continue current cardiovascular regimen maintain three times a week. 2. Hemodialysis with ultrafiltration. 3. Discharge plan to custodial facility noted. 4. Discharge medication regimen reviewed. Bulmaro Hester M.D. DR: EMIR/CHEN JOB#: [id number] CC:
--- NOTE | 2019-06-08 23:51 | Psych Consult Progress Note ---
Psychiatry Progress Note Psychiatry Progress Note Medications No acute distress. Confused. Did not know the date. She has episodes of agitation. MENTAL STATUS EXAMINATION: The patient is alert, oriented times self. Mood is anxious. Affect is flat. Thought process, there is a paucity of thought content. Thought content, no suicidal or homicidal ideation. Cognition is impaired. ASSESSMENT: Dementia with behavior disturbance. PLAN: 1. We will continue the risperidone 1 mg p.o. b.i.d. 2. We will continue to follow and readjust the medications. Allergies: Coded Allergies: No Known Allergies (Unverified , 02/27/19) Objective Data Height (Feet): 5 Height (Inches): 7.00 Weight (Pounds): 129 Assessment/Plan Status: stable Binh Baltazar MD Jun 08, 2019 23:51
[2019-06-09] MEDS ORDERED: Heparin Sod 1000 units/ml 10ml IV SCH (08:30)
[2019-06-10] MEDS ORDERED: Vitamin D 50,000 units cap ORAL SCH (09:00)
== END 2019-06-08 12:12 | DRG 640 ==
LOC: EDBD 15:15 → EMR 15:45 → EDBEDREQ 17:28 → 2E 17:53 → EDBEDREQ 20:33
PROC: 5A1D70Z Performance of Urinary Filtration, Intermittent, Less than 6 Hours Per Day (ICD-10-PCS; principal; 2019-06-05)
DX: E87.5 Hyperkalemia (principal); N18.6 End stage renal disease; G92 Toxic encephalopathy; I50.33 Acute on chronic diastolic (congestive) heart failure; I13.2 Hypertensive heart and chronic kidney disease with heart failure and with stage 5 chronic kidney disease, or end stage renal disease; I69.354 Hemiplegia and hemiparesis following cerebral infarction affecting left non-dominant side; F01.51 Vascular dementia, unspecified severity, with behavioral disturbance; Z91.15 Patient's noncompliance with renal dialysis; Z87.891 Personal history of nicotine dependence; E55.9 Vitamin D deficiency, unspecified; Z99.2 Dependence on renal dialysis; E78.5 Hyperlipidemia, unspecified; D63.1 Anemia in chronic kidney disease; E87.79 Other fluid overload
CPT/HCPCS: 36415; 80053; 81003; 85025; 85610; 86706; 87081; 93005; 93306; 96374; 96375; 99291

== ENCOUNTER 2019-10-19 20:32 | Inpatient (IN) | payer MEDICARE, OTHER ==
[~2019-10-19] VITALS: Ht 167.6 cm; Wt 55.3 kg
[~2019-10-19 20:32] MED LIST changes: +RISPERDAL1 MG ORAL
[2019-10-19 20:40] VITALS: BP 165/85
--- NOTE | 2019-10-19 20:40 | NUR ---
ED Nurse Note: Patient brought into ED by [facility] from [facility] c/o missed 3 days of dialysis. per EMS, patient has been unable to go due to "strict restrictions" on time. patient is alert and oriented x3, shunt located on patients left arm. IV site located on patients left forearm 22 gauge. patient placed i gurney. will continue to monitor.
--- NOTE | 2019-10-19 21:15 | Emergency Room Report ---
History of Present Illness General Chief Complaint: General Complaint Source: Patient, EMS Present Illness HPI Patient is a 74-year-old female history of dementia and end-stage renal disease on dialysis who was brought in from her extended care facility by EMS because she reportedly missed her last 3 dialysis sessions. Patient is very confused and does not know why she is here. She states that she wants to go back home. 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 Patient History Last Menstrual Period: na Reviewed Nursing Documentation: PMH: Agreed; PSxH: Agreed Nursing Documentation-PMH Past Medical History: No History, Except For Hx Hypertension: Yes Hx Diabetes: Yes Hx Cancer: No Hx Gastrointestinal Problems: No Hx Dialysis: Yes Hx Cerebrovascular Accident: Yes Review of Systems All Other Systems: limited - dementia Physical Exam Vital Signs Date Time Temp Pulse Resp B/P (MAP) Pulse Ox O2 Delivery O2 Flow Rate FiO2 10/19/19 20:35 97.2 80 19 160/82 (108) 96 Room Air Sp02 EP Interpretation: reviewed, normal General Appearance: no apparent distress, alert, non-toxic Head: normocephalic, atraumatic Eyes: bilateral eye normal inspection, bilateral eye PERRL ENT: hearing grossly normal, normal pharynx, no angioedema, normal voice Neck: full range of motion, supple/symm/no masses Respiratory: no respiratory distress, speaking full sentences Cardiovascular #1: regular rate, rhythm Gastrointestinal: normal bowel sounds, non tender, soft, non-distended, no guarding, no rebound Rectal: deferred Genitourinary: no CVA tenderness Musculoskeletal: other - LUE AV fistual with palpable thrill Skin: no rash Lymphatic: no adenopathy Medical Decision Making Diagnostic Impression: Primary Impression: Chronic renal failure Additional Impression: Missed dialysis ER Course Patient presents after several episodes of missed dialysis. She is demented. I spoke with the patient's primary care doctor who would like the patient to be admitted for dialysis as she has refused it. Patient to be admitted for further treatment and evaluation Laboratory Tests Test 10/19/19 21:04 White Blood Count 8.8 K/UL (4.8-10.8) Red Blood Count 4.21 M/UL (4.20-5.40) Hemoglobin 12.0 G/DL (12.0-16.0) Hematocrit 38.0 % (37.0-47.0) Mean Corpuscular Volume 90 FL (80-99) Mean Corpuscular Hemoglobin 28.5 PG (27.0-31.0) Mean Corpuscular Hemoglobin Concent 31.5 G/DL (32.0-36.0) L Red Cell Distribution Width 13.8 % (11.6-14.8) Platelet Count 240 K/UL (150-450) Mean Platelet Volume 6.7 FL (6.5-10.1) Neutrophils (%) (Auto) 50.0 % (45.0-75.0) Lymphocytes (%) (Auto) 30.3 % (20.0-45.0) Monocytes (%) (Auto) 9.6 % (1.0-10.0) Eosinophils (%) (Auto) 8.3 % (0.0-3.0) H Basophils (%) (Auto) 1.7 % (0.0-2.0) Prothrombin Time 11.2 SEC (9.30-11.50) Prothrombin Time INR 1.0 (0.9-1.1) Activated Partial Thromboplast Time 27 SEC (23-33) Sodium Level 141 MMOL/L (136-145) Potassium Level 3.7 MMOL/L (3.5-5.1) Chloride Level 99 MMOL/L (98-107) Carbon Dioxide Level 29 MMOL/L (21-32) Anion Gap 13 mmol/L (5-15) Blood Urea Nitrogen 52 mg/dL (7-18) H Creatinine 8.6 MG/DL (0.55-1.30) H Estimated Glomerular Filtration Rate 5.5 mL/min (>60) Glucose Level 92 MG/DL (74-106) Calcium Level 8.9 MG/DL (8.5-10.1) Total Bilirubin 0.3 MG/DL (0.2-1.0) Aspartate Amino Transferase (AST) 36 U/L (15-37) Alanine Aminotransferase (ALT) 33 U/L (12-78) Alkaline Phosphatase 96 U/L (46-116) Pro-B-Type Natriuretic Peptide Pending Total Protein 8.2 G/DL (6.4-8.2) Albumin 4.2 G/DL (3.4-5.0) Globulin 4.0 g/dL Albumin/Globulin Ratio 1.0 (1.0-2.7) EKG Diagnostic Results EKG Time: 20:44 EP Interpretation: MD Janessa Rate: normal - 83 Rhythm: NSR ST Segments: no acute changes ASA given to the pt in ED: No Chest X-Ray Diagnostic Results Chest X-Ray Diagnostic Results : Chest X-Ray Ordered: Yes # of Views/Limited/Complete: 1 View Indication: Other - missed dialysis EP Interpretation: Yes Interpretation: no consolidation, no effusion, no pneumothorax, no acute cardiopulmonary disease Impression: No acute disease Electronically Signed by: MD Janessa Last Vital Signs Date Time Temp Pulse Resp B/P (MAP) Pulse Ox O2 Delivery O2 Flow Rate FiO2 10/19/19 20:35 97.2 80 19 160/82 (108) 96 Room Air Disposition: PLACE IN OBSERVATION - medical floor Condition: Critical Physician Consult: Gabriela Oconnor M.D. October 19, 2019 21:15
[2019-10-19 21:19] LABS: BASOPHILS % (AUTO) 1.7 % (0.0-2.0); EOSINOPHILS % (AUTO) 8.3 % (0.0-3.0); LYMPHOCYTES % (AUTO) 30.3 % (20.0-45.0); MEAN CORPUSCULAR VOLUME 90 FL (80-99); MONOCYTES % (AUTO) 9.6 % (1.0-10.0); PLATELET COUNT 240 K/UL (150-450); RED BLOOD COUNT 4.21 M/UL (4.20-5.40); RED CELL DISTRIBUTION WIDTH 13.8 % (11.6-14.8); WHITE BLOOD COUNT 8.8 K/UL (4.8-10.8)
[2019-10-19 21:26] LABS: ANION GAP 13 mmol/L (5-15); BLOOD UREA NITROGEN 52 mg/dL (7-18); CALCIUM 8.9 MG/DL (8.5-10.1); CARBON DIOXIDE 29 MMOL/L (21-32); CHLORIDE 99 MMOL/L (98-107); CREATININE 8.6 MG/DL (0.55-1.30); POTASSIUM 3.7 MMOL/L (3.5-5.1); SODIUM 141 MMOL/L (136-145)
[2019-10-19 21:30] LABS: ALANINE AMINOTRANSFERASE 33 U/L (12-78); ALBUMIN 4.2 G/DL (3.4-5.0); ALKALINE PHOSPHATASE 96 U/L (46-116); ASPARTATE AMINO TRANSFERASE 36 U/L (15-37); BILIRUBIN,TOTAL 0.3 MG/DL (0.2-1.0)
--- NOTE | 2019-10-19 21:30 | NUR ---
ED Nurse Note: patient has refused CRE,VRE,MRSA swabs
--- NOTE | 2019-10-19 21:32 | Diagnostic Imaging Report ---
EXAM: XR Chest, 1 View CLINICAL HISTORY: SOB TECHNIQUE: Frontal view of the chest. COMPARISON: Chest radiograph dated 04/24/2019 FINDINGS: Lungs: Unremarkable. No consolidation. Pleural space: Unremarkable. No pneumothorax. Heart: Unremarkable. No cardiomegaly. Mediastinum: Unremarkable. Bones/joints: Unremarkable. Other findings: Patient is mildly rotated. IMPRESSION: No acute cardiopulmonary disease.
[2019-10-19] MEDS ORDERED: HYDROcodone/Acetamin 10/325 tab ORAL PRN (22:45)
[2019-10-19 23:00] VITALS: BP 170/79
[2019-10-19] MEDS ORDERED: LORazepam Inj 2mg/ml 1ml IV PRN (23:00)
--- NOTE | 2019-10-19 23:17 | NUR ---
ED Nurse Note: had to take additional dose of amlodipine due to patient spitting out 1st pill.
--- NOTE | 2019-10-19 23:20 | NUR ---
ED Nurse Note: patient refused cre,vre,mrsa swab 2nd time
--- NOTE | 2019-10-19 23:28 | NUR ---
TRANSFER TO FLOOR: Patient transferred to [facility] as ordered, per Report given to MICHAEL Vang
--- NOTE | 2019-10-20 00:22 | NUR ---
NURSE NOTES: Received report from [facility]EL [facility] ED. Pt arrived the unit @ 2330 via gurney. Vitals 152/80, 82HR, 20RR, 97.7F, 94% O2. AAO x 2-3, confused, on room air. IV site on R FA intact and AV shunt on DAVID noted. Belongings list checked. CRE,VRE,MRSA swabs not collected from ED. Orientation to the facility and the room given. Demonstrated how to use call light. Meds recon done. Not open pressure ulcer noted on sacral but redness. Covid swab done from SNF on 10/19/19 and result pending. Bed locked, lowest position, alarm on zone 2, side rails upx2, call light within reach. Will continue to monitor.
--- NOTE | 2019-10-20 00:29 | NUR ---
NURSE NOTES: Collected swabs and sent to the lab.
--- NOTE | 2019-10-20 00:46 | NUR ---
NURSE NOTES: Attempted to administer risperdol po med but pt refused and saying leave me alone. Education given but still refused x 2, wasted med.
[2019-10-20] MEDS ORDERED: DEPAKOTE250 MG PO (01:35)
[2019-10-20] MEDS ORDERED: LEXAPRO10 MG ORAL (01:35)
[2019-10-20] MEDS ORDERED: ZOFRAN4 M3 ORAL (01:35)
[2019-10-20 04:00] VITALS: BP 152/78
--- NOTE | 2019-10-20 07:49 | NUR ---
HAND-OFF: Report given to MICHAEL Art.
[2019-10-20 08:00] VITALS: BP 144/80
--- NOTE | 2019-10-20 08:15 | Consultation ---
DATE OF CONSULTATION: 10/19/2019 CARDIOLOGY CONSULTATION CONSULTING PHYSICIAN: Bulmaro Hester MD. REFERRING PHYSICIAN: Freddy Quevedo MD. REASON FOR CONSULTATION: Volume overload. HISTORY OF PRESENT ILLNESS: This is a 74-year-old female with end-stage renal disease on hemodialysis. She has advanced dementia due to cerebrovascular disease. She has been increasingly confused and has refused several dialysis sessions, specifically the last three. She has been increasingly agitated and edematous prompting this hospitalization. PAST MEDICAL HISTORY: Hypertension, type 2 diabetes mellitus, cerebrovascular disease, end-stage renal disease. ALLERGIES: None known. MEDICATIONS: Prior to admission, reviewed and reconciled. SOCIAL HISTORY: Negative for smoking, alcohol, or substance abuse at this time. She lives in a long term facility. Data regarding prior history of alcohol or smoking is not presently available. REVIEW OF SYSTEMS: Cannot be reliably obtained from patient. Pertinent data from prior hospital charts and her current [facility] chart is outlined above following a 20-minute review of records. PHYSICAL EXAMINATION: GENERAL: No distress. VITAL SIGNS: Blood pressure 160/82, heart rate 80, respirations 19, no fevers, room air oxygen 96% saturation. HEENT: Conjunctiva pink. Arcus senilis. Oropharynx clear. NECK: Supple. Jugular venous pressure grossly elevated. LUNGS: With few rales. CARDIAC: Regular rhythm rate. Normal S1, S2 with a fourth heart sound. ABDOMEN: Soft. EXTREMITIES: Trace edema. Palpable bruit over the left upper extremity fistula site. No erythema or warmth. NEUROLOGIC: Moderate cognitive impairment. EKG with sinus rhythm, nonspecific ST change. No acute findings. LABORATORY DATA: White count is 8.8, hemoglobin is 12. Sodium 141, potassium 3.7, bicarb 29, BUN 52, creatinine 8.6. Pro natriuretic peptide 4700. Albumin 4.2. IMPRESSION: 1. Volume overload due to missed dialysis sessions. 2. Acute on chronic diastolic congestive heart failure. 3. Hypertensive heart disease with labile blood pressure. 4. End-stage renal disease. 5. Metabolic encephalopathy. 6. Cerebrovascular disease with dementia. 7. Type 2 diabetes mellitus with controlled blood sugar. PLAN: 1. Hemodialysis with ultrafiltration. 2. Psychiatric therapies to be considered. 3. Optimize and titrate anti-failure and antihypertensive regimen. 4. DVT prophylaxis. Bulmaro Clover Hester DR: EVA JOB#: [id number] CC:
--- NOTE | 2019-10-20 08:54 | NUR ---
NURSE NOTES: Patient awake alert,respirations unlabored.AV dialysis shunt to the left arm with strong bruit and thrill.Patient sitting up in bed and eating breakfast,bed alarm on,call light within reach.
[2019-10-20] MEDS: Heparin 5000 units/ml inj SUBQ SCH ×2 (09:00→20:49)
[2019-10-20] MEDS: Aspirin Baby 81mg ORAL SCH (09:00)
--- NOTE | 2019-10-20 09:14 | NUR ---
NURSE NOTES: Patient reuse medication,reinforce importance to patient the importance of medication,patient again state no.
--- NOTE | 2019-10-20 10:00 | History and Physical Report ---
DATE OF ADMISSION: 10/19/2019 CHIEF COMPLAINT: Chest pain and shortness of breath. HISTORY OF PRESENT ILLNESS: The patient is a 74-year-old female, who was transferred from a care home facility. She has a history of end-stage renal disease, diastolic congestive heart failure, dementia, hypertension. She had refused to go to dialysis the last several sessions. The staff on the evening of transfer noted that she was more short of breath. She complains of chest pain. She was transferred to the emergency room. There, she was clinically stable. Her creatinine was elevated at 8.6. She had an elevated natriuretic peptide level over 4000. In light of her repetitive refuses of hemodialysis and worsening chest pain and shortness of breath, she is now admitted for further evaluation and care. Currently, she is somewhat agitated and anxious. She denies any suicidal or homicidal ideation. She currently has no chest pain. She has mild shortness of breath. Denies any cough, fevers or chills. PAST MEDICAL HISTORY: As above. PAST SURGICAL HISTORY: None. CURRENT MEDICATIONS: Reconciled and reviewed. ALLERGIES: None. FAMILY HISTORY: None. SOCIAL HISTORY: Negative for tobacco, ethanol, or drugs. REVIEW OF SYSTEMS: GENERAL: No fevers or chills. HEENT: No headaches or visual changes. CARDIOPULMONARY: Positive chest pain. Mild shortness of breath. GASTROINTESTINAL: No nausea or vomiting. GENITOURINARY: No urgency or frequency. MUSCULOSKELETAL: No joint pain or swelling. NEUROLOGIC: No evidence of seizures. SKIN: No history of rash. PSYCH: History of dementia and noncompliance. PHYSICAL EXAMINATION: VITAL SIGNS: Temperature 97.2, pulse 79, respirations 19, blood pressure 170/79. GENERAL: The patient is a well-developed female, in no apparent distress. She is awake. HEENT: Her pupils are equal, round, and reactive to light. Sclerae anicteric. Oropharynx is clear. NECK: Supple. HEART: Regular rate and rhythm. LUNGS: Clear. ABDOMEN: Soft, nontender, nondistended. EXTREMITIES: Without clubbing, cyanosis, or edema. LABORATORY DATA: White count 8. BUN 52, creatinine was 8.6. Natriuretic peptide level was over 4000. ASSESSMENT: This is an elderly female with a history of end-stage renal disease, hypertension, borderline diabetes, history of dementia and psychosis, admitted with complaints of shortness of breath secondary to volume overload from noncompliance with hemodialysis. PLAN: Cardiology and Renal consultation, Psych consultation, compliance has been stressed. treatment deferred to Cardiology. DVT and stress ulcer prophylaxis. Freddy Quevedo M.D. DR: DONTRELL JOB#: [id number] CC:
[2019-10-20 12:00] VITALS: BP 138/79
--- NOTE | 2019-10-20 13:30 | NUR ---
NURSE NOTES:WOUND CARE NOTES:Pt presented on admission with Sacral DTPI. Base of wound is indurated purple in colour with surrounding non-blanching erythema. Non-blanching erythema noted to R and L ischial tuberosities and posterior aspects of Upper R and L thighs. Tx.Plan: Apply Moisture Barrier Paste to Sacrum. Cover with Optifoam drsg. Change every 3 days and prn Apply Cavilon Skin BArrier to R and L trochanteric areas. Cover each site with Optifoam drsg.Change every 7 days and prn. Apply Cavilon Skin Barrier to both heels.Cover each heel with Optifoam drsg. Change every 7 days and prn. Reposition at least every 2hours or as tolerated. Off-load heels with pillow. APM/MADALYN Mattress overlay.
--- NOTE | 2019-10-20 14:15 | Consultation ---
History of Present Illness General Date patient seen: October 20, 2019 Reason for Hospitalization: General Complaint Present Illness HPI Patient is a 74-year-old female history of dementia and end-stage renal disease on dialysis who was brought in from her extended care facility by EMS because she reportedly missed her last 3 dialysis sessions. Patient is very confused and does not know why she is here. She states that she wants to go back home. Patient was refusing to go to dialysis sessions and when became more confused began to have some shortness of breath discomfort and was transferred to [facility] for evaluation. Patient was admitted for further care management. On admission identified to have malnutrition and decubitus skin ulcers as well as abnormal labs requiring care and management. Surgery called to evaluate and assist with care. Patient seen, patient evaluated, chart reviewed Allergies: Coded Allergies: No Known Allergies (Unverified , 02/27/19) COVID-19 Screening Contact w/high risk pt: No Recent Travel to affected area: No Experienced COVID-19 symptoms?: No Medication History Scheduled Amlodipine Besylate* (Amlodipine Besylate*), 10 MG ORAL DAILY, (Reported) Aspirin* (Aspirin*), 81 MG ORAL DAILY, (Reported) Atorvastatin Calcium* (Atorvastatin Calcium*), 80 MG ORAL BEDTIME, (Reported) Divalproex Sodium* (Depakote*), 250 MG PO DAILY, (Reported) Ergocalciferol (Vitamin D2)* (Vitamin D*), 50,000 UNIT ORAL ONCE A WEEK, ( Reported) Escitalopram Oxalate* (Lexapro*), 10 MG ORAL DAILY, (Reported) Heparin Sod (Porcine) (Heparin Sodium*), 5,000 UNITS SUBQ EVERY 12 HOURS, ( Reported) Hydralazine Hcl* (Hydralazine Hcl*), 100 MG ORAL EVERY 8 HOURS, (Reported) Risperidone* (Risperdal*), 1 MG ORAL BID Scheduled PRN Acetaminophen* (Acetaminophen 325MG Tablet*), 650 MG ORAL Q4H PRN for For Pain, (Reported) Hydrocodone Bit/Acetaminophen 10-325* ([place] 10-325*), 1 TAB ORAL Q4H PRN for For Pain, (Reported) Magnesium Hydroxide* (Milk Of Magnesia*), 30 ML ORAL for Constipation, (Reported ) Ondansetron* (Zofran*), 8 MG ORAL TID PRN for Nausea & Vomiting, (Reported) Patient History Limited by: medical condition History Provided By: Medical Record, PMD Healthcare decision maker Resuscitation status Advanced Directive on File Review of Systems Review of Symptoms General ROS: no weight loss or fever Psychological ROS: no depression or mood changes, no memory loss Ophthalmic ROS: no visual changes or eye irritation ENT ROS: no nasal congestion, hearing loss, dizziness Allergy and Immunology ROS: no allergic symptoms or urticaria Hematological and Lymphatic ROS: no swollen glands, unusual bleeding or bruising Endocrine ROS: no polyuria, polydipsia, weight changes, temperature intolerance Respiratory ROS: no cough, shortness of breath, or wheezing Cardiovascular ROS: no chest pain or dyspnea on exertion Gastrointestinal ROS: denies abdominal pain, bright red blood in stool. Musculoskeletal ROS: no myalgias or arthralgias Neurological ROS: no TIA or stroke symptoms Dermatological ROS: no new or changing skin lesions, rashes or pruritis Physical Exam Physical Exam General appearance: alert, cooperative, no distress, appears stated age Head: Normocephalic, without obvious abnormality, atraumatic Eyes: conjunctivae/corneas clear. PERRL, EOM's intact. Fundi benign Throat: Lips, mucosa, and tongue normal. Teeth and gums normal Neck: supple, symmetrical, trachea midline, no adenopathy, thyroid: not enlarged, symmetric, no tenderness/mass/nodules, no carotid bruit and no JVD Lungs: clear to auscultation bilaterally Heart: regular rate and rhythm, S1, S2 normal, no murmur, click, rub or gallop Abdomen: soft, non-tender. Bowel sounds normal. No masses, no organomegaly Extremities: extremities fistula Pulses: 2+ and symmetric Skin: Skin see below Neurologic: Grossly normal Last 24 Hour Vital Signs Date Time Temp Pulse Resp B/P (MAP) Pulse Ox O2 Delivery O2 Flow Rate FiO2 10/20/19 09:00 Room Air 10/20/19 08:00 98.2 83 19 144/80 (101) 93 10/20/19 04:00 97.9 87 20 152/78 (102) 93 10/20/19 01:08 Room Air 10/19/19 23:25 97.2 79 19 175/83 96 Room Air 10/19/19 23:20 79 171/82 10/19/19 23:00 97.2 79 19 170/79 96 Room Air 10/19/19 20:40 80 19 Room Air 10/19/19 20:40 97.2 80 19 165/85 96 Room Air 10/19/19 20:35 97.2 80 19 160/82 (108) 96 Room Air Intake and Output 10/19/19 10/20/19 19:00 07:00 Intake Total 0 ml Balance 0 ml Intake Oral 0 ml # Voids 1 # Bowel Movements 1 Laboratory Tests Test 10/19/19 21:04 White Blood Count 8.8 K/UL (4.8-10.8) Red Blood Count 4.21 M/UL (4.20-5.40) Hemoglobin 12.0 G/DL (12.0-16.0) Hematocrit 38.0 % (37.0-47.0) Mean Corpuscular Volume 90 FL (80-99) Mean Corpuscular Hemoglobin 28.5 PG (27.0-31.0) Mean Corpuscular Hemoglobin Concent 31.5 G/DL (32.0-36.0) L Red Cell Distribution Width 13.8 % (11.6-14.8) Platelet Count 240 K/UL (150-450) Mean Platelet Volume 6.7 FL (6.5-10.1) Neutrophils (%) (Auto) 50.0 % (45.0-75.0) Lymphocytes (%) (Auto) 30.3 % (20.0-45.0) Monocytes (%) (Auto) 9.6 % (1.0-10.0) Eosinophils (%) (Auto) 8.3 % (0.0-3.0) H Basophils (%) (Auto) 1.7 % (0.0-2.0) Prothrombin Time 11.2 SEC (9.30-11.50) Prothromb Time International Ratio 1.0 (0.9-1.1) Activated Partial Thromboplast Time 27 SEC (23-33) Sodium Level 141 MMOL/L (136-145) Potassium Level 3.7 MMOL/L (3.5-5.1) Chloride Level 99 MMOL/L (98-107) Carbon Dioxide Level 29 MMOL/L (21-32) Anion Gap 13 mmol/L (5-15) Blood Urea Nitrogen 52 mg/dL (7-18) H Creatinine 8.6 MG/DL (0.55-1.30) H Estimat Glomerular Filtration Rate 5.5 mL/min (>60) Glucose Level 92 MG/DL (74-106) Calcium Level 8.9 MG/DL (8.5-10.1) Total Bilirubin 0.3 MG/DL (0.2-1.0) Aspartate Amino Transf (AST/SGOT) 36 U/L (15-37) Alanine Aminotransferase (ALT/SGPT) 33 U/L (12-78) Alkaline Phosphatase 96 U/L (46-116) Pro-B-Type Natriuretic Peptide 4724 pg/mL (0-125) H Total Protein 8.2 G/DL (6.4-8.2) Albumin 4.2 G/DL (3.4-5.0) Globulin 4.0 g/dL Albumin/Globulin Ratio 1.0 (1.0-2.7) Height (Feet): 5 Height (Inches): 6.00 Weight (Pounds): 150 Medications Current Medications Medications (Trade) Dose Ordered Sig/Jeanne Route PRN Reason Start Time Stop Time Status Last Admin Dose Admin Acetaminophen/ Hydrocodone Bitart ([place] 10/325) 1 tab Q4H PRN ORAL For Pain 10/19/19 22:45 10/26/19 22:44 Amlodipine Besylate (Norvasc) 10 mg DAILY ORAL 10/19/19 23:00 11/18/19 22:59 10/19/19 23:20 Aspirin (ASA) 81 mg DAILY ORAL 10/20/19 09:00 12/04/19 08:59 Atorvastatin Calcium (Lipitor) 80 mg BEDTIME ORAL 10/20/19 21:00 01/18/20 20:59 Heparin Sodium (Porcine) (Heparin 5000 units/ml) 5,000 units EVERY 12 HOURS SUBQ 10/20/19 09:00 12/04/19 08:59 Lorazepam (Ativan 2mg/ml 1ml) 1 mg Q4H PRN IV For Anxiety 10/19/19 23:00 10/26/19 22:59 Risperidone (RisperDAL) 1 mg BID ORAL 10/19/19 22:45 12/03/19 22:44 10/20/19 00:38 Assessment/Plan Problem List: (1) Deep tissue injury Assessment & Plan: Pt presented on admission with Sacral DTPI. Base of wound is indurated purple in colour with surrounding non-blanching erythema. Non-blanching erythema noted to R and L ischial tuberosities and posterior aspects of Upper R and L thighs. Tx.Plan: Apply Moisture Barrier Paste to Sacrum. Cover with Optifoam drsg. Change every 3 days and prn Apply Cavilon Skin BArrier to R and L trochanteric areas. Cover each site with Optifoam drsg.Change every 7 days and prn. \Apply Cavilon Skin Barrier to both heels.Cover each heel with Optifoam drsg. Change every 7 days and prn. Reposition at least every 2hours or as tolerated. Off-load heels with pillow. APM/MADALYN Mattress overlay. ICD Codes: T14.8XXA - Other injury of unspecified body region, initial encounter SNOMED: 894900983 (2) Dementia ICD Codes: F03.90 - Unspecified dementia without behavioral disturbance SNOMED: 78751322 (3) Hypertensive nephrosclerosis ICD Codes: I12.9 - Hypertensive chronic kidney disease with stage 1 through stage 4 chronic kidney disease, or unspecified chronic kidney disease SNOMED: 393014661 (4) Anemia in chronic kidney disease ICD Codes: N18.9 - Chronic kidney disease, unspecified; D63.1 - Anemia in chronic kidney disease SNOMED: 028328926 (5) CVA, old, cognitive deficits ICD Codes: I69.319 - Unspecified symptoms and signs involving cognitive functions following cerebral infarction SNOMED: 56087014, 349154318, 563175496, 498402940 (6) Chronic renal failure ICD Codes: N18.9 - Chronic kidney disease, unspecified SNOMED: 80993250 (7) Missed dialysis SNOMED: 106546932 (8) Weakness Assessment & Plan: Patient is felt fairly weak and since missing her dialysis has deteriorated currently pending dialysis. On admission deep tissue injury noted likely from patient's noncompliance laying in 1 position for too long and not wanting to move or go to dialysis. Furthermore patient confused currently pending psych eval. Weakness likely related to above and will assist in care plan to help ensure improvement if deterioration will be detrimental ICD Codes: R53.1 - Weakness SNOMED: 97209056 (9) ESRD (end stage renal disease) ICD Codes: N18.6 - End stage renal disease SNOMED: 63002315 Jesse Quinn October 20, 2019 14:15
[2019-10-20 16:00] VITALS: BP 136/82
--- NOTE | 2019-10-20 18:12 | Consultation ---
Consult Note Assessment/Plan [id number] Lucian Castaneda MD October 20, 2019 18:12
[2019-10-20] MEDS ORDERED: Heparin Sod 1000 units/ml 10ml IV SCH (18:30)
--- NOTE | 2019-10-20 18:43 | NUR ---
CHARGE NURSe NOTE: HD scheduled for tomorrow 10/21/19/ by . [facility] agency notified. spoke with
--- NOTE | 2019-10-20 18:59 | NUR ---
NURSE NOTES: Patient calm more cooperative,took medication. Dialysis AV shunt remains with strong bruit and thrill.Bed alarm on,call light within reach.patient will receive Dialysis ordered for 10/21/19.
--- NOTE | 2019-10-20 19:55 | NUR ---
HAND-OFF: Report given to TODDU RN.
[2019-10-20 20:00] VITALS: BP 156/71
--- NOTE | 2019-10-20 20:00 | NUR ---
NURSE NOTES: Patient alert to herself and needs. Verbally responsive but passive and delayed. Breathing unlabored on room air without distress. Denies pain or discomfort. IV noted on the left forearm intact and patent. Bed placed at the lowest with alarm, brake, and siderails up for safety. Call light placed within reach. Will continue to monitor. Addendum: 10/21/19 at 0304 by Evette Roldan RN DAVID AV shunt assessed. Bruit and thrill present.
[2019-10-20] MEDS: Atorvastatin 80mg tab ORAL SCH (20:54)
--- NOTE | 2019-10-20 23:56 | NUR ---
NURSE NOTES: Patient placed on P200 mattress.
[2019-10-21] VITALS: BP 155/71
--- NOTE | 2019-10-21 | NUR ---
NURSE NOTES: Provided proper incontinence care. Patient cooperative. Tolerated well.
--- NOTE | 2019-10-21 00:45 | Consultation ---
DATE OF CONSULTATION: 10/20/2019 NEPHROLOGY CONSULTATION CONSULTING PHYSICIAN: Lucian Castaneda MD. REFERRING PHYSICIAN: Freddy Quevedo MD. REASON FOR CONSULTATION: Patient with end-stage renal disease. Has had some shortness of breath. HISTORY OF PRESENT ILLNESS: This is a very pleasant 74-year-old female, resident of a custodial, who has had previous stroke with left-sided hemiparesis, also end-stage renal disease, on hemodialysis. Apparently, she missed dialysis several sessions because she refused to go to dialysis and she became more and more short of breath for which she was brought to the emergency room of [facility] and has been admitted. I have been asked to see her and assess her for her hemodialysis needs. It does not seem that she has any insight in her medical care and she is telling that she wants to go home right now. PAST MEDICAL HISTORY: Significant for hypertension, type 2 diabetes mellitus, cerebrovascular disease, previous hemispheric CVA with left-sided hemiparesis, end-stage renal disease, and some degree of dementia. ALLERGIES: NKDA. MEDICATIONS: Includes amlodipine 10 mg p.o. daily, aspirin 81 mg p.o. daily, Lipitor 80 mg p.o. daily, heparin 5000 units subcutaneous q.12h., [place] 10/325 q.4h. p.r.n. for pain, Lorazepam 1 mg IV q.4h. p.r.n., Risperdal 1 mg p.o. b.i.d. for agitation. SOCIAL HISTORY: She is a resident of a custodial. Does not smoke. Does not drink alcohol at this point. REVIEW OF SYSTEMS: Somewhat impossible since she is not a very good historian and does not have any insight in her medical care it seems like. PHYSICAL EXAMINATION: GENERAL: Does not seem to be in much acute distress. VITAL SIGNS: Blood pressure is 136/82, pulse of 79, respirations 19, temperature 98.2. HEENT: Head is atraumatic. Eyes, pupils reactive to light. No evidence of papilledema. Ears, canals are clear. Tympanic membranes are intact. Nose, nares are patent without any nasal discharge. Throat, no inflammation or exudate. NECK: Supple. Jugular venous distention is mildly increased. No cervical adenopathies. No thyromegaly. HEART: Regular rhythm. No gallop. LUNGS: Decreased air excursion bilaterally. ABDOMEN: Supple. Bowel sounds positive. No hepatosplenomegaly. EXTREMITIES: Lower extremity shows no pedal edema. NEUROLOGICAL: She has a left-sided hemiparesis. Disoriented x3. Deep tendon reflexes are symmetrically decreased in both lower extremities. LABORATORY DATA: Showing sodium of 141, potassium 3.7, chloride 99, carbon dioxide 29, BUN is 52, creatinine is 8.6. LFTs within normal range. Albumin is 4.2. BNP is 4724. WBC 8.8, hemoglobin is 12, hematocrit 38, platelets 240. INR is 1.0. IMPRESSION: 1. End-stage renal disease. 2. Noncompliance with medical treatment. 3. She has missed several dialysis sessions. 4. Some fluid overload. 5. Some degree of azotemia. PLAN: We are going to arrange for hemodialysis tomorrow with fluid removal. She needs some psychiatric help. Lucian Castaneda M.D. DR: JOYCE JOB#: [id number] CC:
[2019-10-21 04:00] VITALS: BP 151/77
--- NOTE | 2019-10-21 04:00 | Progress Note ---
DATE: 10/20/2019 CARDIOLOGY PROGRESS NOTE SUBJECTIVE: The patient has no complaints. She is to undergo hemodialysis tomorrow. OBJECTIVE: VITAL SIGNS: Blood pressure 136/82 to 156/71, heart rate 80, respiratory rate 18, and afebrile. Oxygen saturation 96% on room air. LUNGS: Diminished breath sounds. No wheezing. CARDIAC: Regular rhythm and rate. Normal S1 and S2 with a fourth heart sound and a 1/6 systolic murmur at the apex. ABDOMEN: Soft. EXTREMITIES: No edema. IMPRESSION: 1. Volume overload due to missed dialysis sessions. 2. End-stage renal disease. 3. Acute on chronic diastolic congestive heart failure. 4. Hypertensive heart disease. 5. Cerebrovascular disease with dementia. PLAN OF CARE: 1. Await 2D Echo. 2. Monitor electrolytes. 3. Titrate anti-failure and antihypertensive regimen. 4. Psychiatric followup and medication adjustments to improve compliance as an outpatient with dialysis sessions. Bulmaro Hester M.D. DR: URVASHI JOB#: [id number] CC: KAIA
--- NOTE | 2019-10-21 07:51 | NUR ---
HAND-OFF: Report given to MICHAEL Art. Plan of care endorsed. Addendum: 10/21/19 at 0754 by Evette Roldan RN Made round with receiving MICHAEL.
[2019-10-21 08:00] VITALS: BP 159/66
--- NOTE | 2019-10-21 08:00 | NUR ---
NURSE NOTES: Patient alert to name,respirations unlabored.Left arm Av shunt with strong bruit and thrill.Breakfast at bedside,assist patient.Bed alarm on,call light within reach.
[2019-10-21] MEDS: Heparin 5000 units/ml inj SUBQ SCH ×2 (09:00→20:20)
[2019-10-21] MEDS: Aspirin Baby 81mg ORAL SCH (10:44)
--- NOTE | 2019-10-21 11:01 | General Progress Note ---
Assessment/Plan Problem List: (1) Missed dialysis SNOMED: 414240881 (2) Dementia ICD Codes: F03.90 - Unspecified dementia without behavioral disturbance SNOMED: 43248541 (3) Weakness ICD Codes: R53.1 - Weakness SNOMED: 63736421 (4) ESRD (end stage renal disease) ICD Codes: N18.6 - End stage renal disease SNOMED: 65282279 (5) Hypertensive nephrosclerosis ICD Codes: I12.9 - Hypertensive chronic kidney disease with stage 1 through stage 4 chronic kidney disease, or unspecified chronic kidney disease SNOMED: 759672739 (6) Anemia in chronic kidney disease ICD Codes: N18.9 - Chronic kidney disease, unspecified; D63.1 - Anemia in chronic kidney disease SNOMED: 000934256 (7) CVA, old, cognitive deficits ICD Codes: I69.319 - Unspecified symptoms and signs involving cognitive functions following cerebral infarction SNOMED: 53028069, 400461486, 524509043, 828262191 Status: stable Assessment/Plan: cont current rx HD today compliance stressed titrate bp rx anxiolytics skin care renal and cards appreciated Subjective ROS Limited/Unobtainable: No Constitutional: Reports: malaise, weakness HEENT: Reports: no symptoms Cardiovascular: Reports: no symptoms Respiratory: Reports: no symptoms Gastrointestinal/Abdominal: Reports: no symptoms Genitourinary: Reports: no symptoms Neurologic/Psychiatric: Reports: anxiety, emotional problems, pre-existing deficit Endocrine: Reports: no symptoms Hematologic/Lymphatic: Reports: no symptoms Allergies: Coded Allergies: No Known Allergies (Unverified , 02/27/19) All Systems: reviewed and negative except above Subjective no events. waiting for HD. cooperative with care so far. taking meds. BP better controlled. no fevers or chills. no sob Objective Last 24 Hour Vital Signs Date Time Temp Pulse Resp B/P (MAP) Pulse Ox O2 Delivery O2 Flow Rate FiO2 10/21/19 09:00 69 159/66 10/21/19 08:00 97.2 69 16 159/66 (97) 97 10/21/19 04:00 98.2 72 19 151/77 (101) 96 10/21/19 00:00 97.3 75 20 155/71 (99) 94 10/20/19 21:00 Room Air 10/20/19 20:00 98.2 80 18 156/71 (99) 96 10/20/19 16:00 98.2 79 19 136/82 (100) 96 10/20/19 12:00 98.1 80 20 138/79 (98) 96 Intake and Output 10/20/19 10/21/19 19:00 07:00 Intake Total 680 ml 120 ml Balance 680 ml 120 ml Intake Oral 680 ml 120 ml # Voids 4 2 Height (Feet): 5 Height (Inches): 6.00 Weight (Pounds): 122 Freddy Quevedo MD October 21, 2019 11:01
[2019-10-21 12:04] VITALS: BP 164/78
--- NOTE | 2019-10-21 12:39 | Surgery Progress Note ---
Surgery Progress Note Subjective Additional Comments Afebrile, hemodynamic stable, resting comfortably. Objective Last 24 Hour Vital Signs Date Time Temp Pulse Resp B/P (MAP) Pulse Ox O2 Delivery O2 Flow Rate FiO2 10/21/19 12:04 97.5 73 17 164/78 (106) 98 10/21/19 09:00 69 159/66 10/21/19 09:00 Room Air 10/21/19 08:00 97.2 69 16 159/66 (97) 97 10/21/19 04:00 98.2 72 19 151/77 (101) 96 10/21/19 00:00 97.3 75 20 155/71 (99) 94 10/20/19 21:00 Room Air 10/20/19 20:00 98.2 80 18 156/71 (99) 96 10/20/19 16:00 98.2 79 19 136/82 (100) 96 I&O Intake and Output 10/20/19 10/21/19 19:00 07:00 Intake Total 680 ml 120 ml Balance 680 ml 120 ml Intake Oral 680 ml 120 ml # Voids 4 2 Dressing: other Wound: other Drains: other Cardiovascular: RSR Respiratory: decreased breath sounds Abdomen: soft, present bowel sounds Extremities: no cyanosis Plan Problems: (1) Deep tissue injury Assessment & Plan: Pt presented on admission with Sacral DTPI. Base of wound is indurated purple in colour with surrounding non-blanching erythema. Non-blanching erythema noted to R and L ischial tuberosities and posterior aspects of Upper R and L thighs. Tx.Plan: Apply Moisture Barrier Paste to Sacrum. Cover with Optifoam drsg. Change every 3 days and prn Apply Cavilon Skin BArrier to R and L trochanteric areas. Cover each site with Optifoam drsg.Change every 7 days and prn. \Apply Cavilon Skin Barrier to both heels.Cover each heel with Optifoam drsg. Change every 7 days and prn. Reposition at least every 2hours or as tolerated. Off-load heels with pillow. APM/MADALYN Mattress overlay. (2) Dementia (3) Hypertensive nephrosclerosis (4) Anemia in chronic kidney disease (5) CVA, old, cognitive deficits (6) Chronic renal failure (7) Missed dialysis (8) Weakness Assessment & Plan: Patient is felt fairly weak and since missing her dialysis has deteriorated currently pending dialysis. On admission deep tissue injury noted likely from patient's noncompliance laying in 1 position for too long and not wanting to move or go to dialysis. Furthermore patient confused currently pending psych eval. Weakness likely related to above and will assist in care plan to help ensure improvement if deterioration will be detrimental (9) ESRD (end stage renal disease) Jesse Quinn October 21, 2019 12:39
--- NOTE | 2019-10-21 15:43 | General Progress Note ---
Assessment/Plan Assessment/Plan: 1) ESRD 2) Dementia 3) S/P CVA with L sided hemiparesis mreissa: Continue HD as ordered Subjective Allergies: Coded Allergies: No Known Allergies (Unverified , 02/27/19) Subjective She is seen on HD, no distress Objective Last 24 Hour Vital Signs Date Time Temp Pulse Resp B/P (MAP) Pulse Ox O2 Delivery O2 Flow Rate FiO2 10/21/19 12:04 97.5 73 17 164/78 (106) 98 10/21/19 09:00 69 159/66 10/21/19 09:00 Room Air 10/21/19 08:00 97.2 69 16 159/66 (97) 97 10/21/19 04:00 98.2 72 19 151/77 (101) 96 10/21/19 00:00 97.3 75 20 155/71 (99) 94 10/20/19 21:00 Room Air 10/20/19 20:00 98.2 80 18 156/71 (99) 96 10/20/19 16:00 98.2 79 19 136/82 (100) 96 Intake and Output 10/20/19 10/21/19 18:59 06:59 Intake Total 680 ml 120 ml Balance 680 ml 120 ml Intake Oral 680 ml 120 ml # Voids 4 2 General Appearance: WD/WN, no apparent distress Neck: non-tender, normal alignment Cardiovascular: normal rate Respiratory/Chest: lungs clear Edema: trace edema Neurologic: other - L hemiparesis Lucian Castaneda MD October 21, 2019 15:43
[2019-10-21 16:00] VITALS: BP 168/84
--- NOTE | 2019-10-21 18:15 | Progress Note ---
DATE: 10/21/2019 CARDIOLOGY PROGRESS NOTE SUBJECTIVE: The patient is cooperative, taking medications, no shortness of breath. PHYSICAL EXAMINATION: VITAL SIGNS: Blood pressure 159/66, pulse 69, respiratory rate 16, afebrile. NECK: Jugular venous pressure elevated. LUNGS: Few rales. CARDIAC: Regular rhythm rate. Normal S1, S2 with a fourth heart sound. A 1/6 systolic murmur at apex. ABDOMEN: Soft. EXTREMITIES: No edema. IMPRESSION: 1. Volume overload. 2. Missed dialysis sessions. 3. Hypertensive heart disease. 4. Elevated blood pressure due to pulmonary venous congestion. 5. Acute on chronic diastolic congestive heart failure. 6. Dementia with confusion. PLAN: 1. Hemodialysis with ultrafiltration today. 2. Reassess antihypertensive regimen following dialysis session, we will follow. Bulmaro Hester M.D. DR: Evie JOB#: [id number] CC:
--- NOTE | 2019-10-21 18:18 | NUR ---
NURSE NOTES: Patient resting,patient received Dialysis as ordered.Dialysis AV shunt to upper left arm continue with strong bruit and thrills.Observe site for any bleeding,none noted. Patient still voids,incontinent of urine,skin care given.Bed alarm on,call light within reach.
--- NOTE | 2019-10-21 19:30 | NUR ---
HAND-OFF: Report given to Jonathan RODRIGUEZ. Addendum: 10/21/19 at 4 by NIYA SMITH RN RN aware of fall risk.
[2019-10-21 20:00] VITALS: BP 135/77
--- NOTE | 2019-10-21 20:00 | NUR ---
NURSE NOTES: Received patient asleep in bed, easily arousable, no s/s of acute distress. P200 mattress noted. IV access intact, flushed with normal saline, patient tolerating well. Bed low and locked.
[2019-10-21] MEDS: Atorvastatin 80mg tab ORAL SCH (20:20)
[2019-10-22 04:00] VITALS: BP 143/81
--- NOTE | 2019-10-22 07:26 | NUR ---
HAND-OFF: Report given to MICHAEL Art.
--- NOTE | 2019-10-22 07:49 | NUR ---
NURSE NOTES: Patient awake and alert when name called,respirations unlabored.AV shunt to the left upper arm with strong bruit and thrill.Will continue with plan of care.Bed alarm is on,call light within reach.
[2019-10-22 08:00] VITALS: BP 138/80
--- NOTE | 2019-10-22 09:02 | General Progress Note ---
Assessment/Plan Problem List: (1) Missed dialysis SNOMED: 550421126 (2) Dementia ICD Codes: F03.90 - Unspecified dementia without behavioral disturbance SNOMED: 50665165 (3) Weakness ICD Codes: R53.1 - Weakness SNOMED: 23725469 (4) ESRD (end stage renal disease) ICD Codes: N18.6 - End stage renal disease SNOMED: 17193389 (5) Hypertensive nephrosclerosis ICD Codes: I12.9 - Hypertensive chronic kidney disease with stage 1 through stage 4 chronic kidney disease, or unspecified chronic kidney disease SNOMED: 214485422 (6) Anemia in chronic kidney disease ICD Codes: N18.9 - Chronic kidney disease, unspecified; D63.1 - Anemia in chronic kidney disease SNOMED: 678294422 (7) CVA, old, cognitive deficits ICD Codes: I69.319 - Unspecified symptoms and signs involving cognitive functions following cerebral infarction SNOMED: 37608857, 986541175, 975213466, 022110735 Status: stable Assessment/Plan: cont current rx HD compliance stressed titrate bp rx anxiolytics skin care renal and cards appreciated dc planning if ok with all Subjective ROS Limited/Unobtainable: No Constitutional: Reports: malaise, weakness HEENT: Reports: no symptoms Cardiovascular: Reports: no symptoms Respiratory: Reports: no symptoms Gastrointestinal/Abdominal: Reports: no symptoms Genitourinary: Reports: no symptoms Neurologic/Psychiatric: Reports: anxiety, emotional problems, pre-existing deficit Endocrine: Reports: no symptoms Hematologic/Lymphatic: Reports: no symptoms Allergies: Coded Allergies: No Known Allergies (Unverified , 02/27/19) All Systems: reviewed and negative except above Subjective cooperative with care, no new complaints. no fever or chills. no sob. tolerated HD. Objective Last 24 Hour Vital Signs Date Time Temp Pulse Resp B/P (MAP) Pulse Ox O2 Delivery O2 Flow Rate FiO2 10/22/19 04:00 97.9 72 17 143/81 (101) 98 10/21/19 22:35 Room Air 10/21/19 20:00 98.3 67 17 135/77 (96) 98 10/21/19 18:08 164/87 10/21/19 16:00 68 18 168/84 (112) 99 10/21/19 12:04 97.5 73 17 164/78 (106) 98 10/21/19 09:00 69 159/66 10/21/19 09:00 Room Air Intake and Output 10/21/19 10/22/19 19:00 07:00 Intake Total 120 ml 25 ml Output Total 2000 ml Balance -1880 ml 25 ml Intake Oral 120 ml 25 ml Output Hemodialysis UF 2000 ml # Voids 2 1 Laboratory Tests 10/21/19 15:30: Hepatitis B Surface Antigen Negative Height (Feet): 5 Height (Inches): 6.00 Weight (Pounds): 122 General Appearance: WD/WN, alert, confused EENT: PERRL/EOMI, normal ENT inspection Neck: non-tender, normal alignment, supple Cardiovascular: normal peripheral pulses, normal rate Respiratory/Chest: chest wall non-tender, lungs clear, normal breath sounds Abdomen: normal bowel sounds, non tender, soft, no organomegaly, no mass Extremities: normal range of motion, non-tender Edema: no edema noted Arm (L), no edema noted Arm (R), no edema noted Leg (L), no edema noted Leg (R), no edema noted Pedal (L), no edema noted Pedal (R), no edema noted Generalized 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
[2019-10-22] MEDS: Aspirin Baby 81mg ORAL SCH (10:33)
[2019-10-22] MEDS: Heparin 5000 units/ml inj SUBQ SCH ×2 (10:37→21:00)
--- NOTE | 2019-10-22 10:57 | NUR ---
MACHINE BUNCH MAKER NOTE PER BRIANNA ENGLE, PATIENT WAS REFUSED HD AT [facility] D/T TEMP OF 101 AND SUSPECTED COVID. . DR RIVAS INFORMED AND GAVE ORDER FOR PATIENT TO BE SWABBED FOR COVID-19. NOTED AND CARRIED OUT GIVEN. CHARGE NURSE JOVANNA AWARE AND WILL HAVE PATIENT SWABBED.
[2019-10-22 12:00] VITALS: BP 140/79
--- NOTE | 2019-10-22 12:45 | Surgery Progress Note ---
Surgery Progress Note Subjective Additional Comments no acute events no n/v/f/c comfortable stable Objective Last 24 Hour Vital Signs Date Time Temp Pulse Resp B/P (MAP) Pulse Ox O2 Delivery O2 Flow Rate FiO2 10/22/19 10:44 80 146/76 10/22/19 09:00 Room Air 10/22/19 08:00 97.5 76 19 138/80 (99) 98 10/22/19 04:00 97.9 72 17 143/81 (101) 98 10/21/19 22:35 Room Air 10/21/19 20:00 98.3 67 17 135/77 (96) 98 10/21/19 18:08 164/87 10/21/19 16:00 68 18 168/84 (112) 99 I&O Intake and Output 10/21/19 10/22/19 19:00 07:00 Intake Total 120 ml 25 ml Output Total 2000 ml Balance -1880 ml 25 ml Intake Oral 120 ml 25 ml Output Hemodialysis UF 2000 ml # Voids 2 1 Dressing: other Wound: other Drains: other Cardiovascular: RSR Respiratory: decreased breath sounds Abdomen: soft, non-tender, present bowel sounds Extremities: no cyanosis Laboratory Tests Test 10/21/19 15:30 Hepatitis B Surface Antigen Negative (NEGATIVE) Plan Problems: (1) Deep tissue injury Assessment & Plan: Pt presented on admission with Sacral DTPI. Base of wound is indurated purple in colour with surrounding non-blanching erythema. Non-blanching erythema noted to R and L ischial tuberosities and posterior aspects of Upper R and L thighs. Tx.Plan: Apply Moisture Barrier Paste to Sacrum. Cover with Optifoam drsg. Change every 3 days and prn Apply Cavilon Skin BArrier to R and L trochanteric areas. Cover each site with Optifoam drsg.Change every 7 days and prn. \Apply Cavilon Skin Barrier to both heels.Cover each heel with Optifoam drsg. Change every 7 days and prn. Reposition at least every 2hours or as tolerated. Off-load heels with pillow. APM/MADALYN Mattress overlay. (2) Dementia (3) Hypertensive nephrosclerosis (4) Anemia in chronic kidney disease (5) CVA, old, cognitive deficits (6) Chronic renal failure (7) Missed dialysis (8) Weakness Assessment & Plan: Patient is felt fairly weak and since missing her dialysis has deteriorated currently pending dialysis. On admission deep tissue injury noted likely from patient's noncompliance laying in 1 position for too long and not wanting to move or go to dialysis. Furthermore patient confused currently pending psych eval. Weakness likely related to above and will assist in care plan to help ensure improvement if deterioration will be detrimental (9) ESRD (end stage renal disease) Jesse uQinn Oct 22, 2019 12:45
--- NOTE | 2019-10-22 14:46 | NUR ---
CASE MANAGEMENT:INITIAL REVIEW 10/20/19 74 YR OLD FEMALE ADALGISAAFMAXIMILIANO [facility] CC;GENERAL COMPLAINT SI;ESRD on HD. MISSED DIALYSIS. WEAKNESS. 97.2 80 19 171/82 96% ON RA BUN 52 CR 8.6 BNP 4724 IS: CXR ~ No acute cardiopulmonary disease. ADMITTED TO MED SURG AT 2356 ON 10/19/19 MED SURG STATUS DCP;FROM [facility] CASE MANAGEMENT:REVIEW 10/22/19 SI;ESRD on HD. VOLUME OVERLOAD, WEAKNESS. 97.9 80 19 146/76 98% ON RA IS;HEPARIN SUBQ Q12 HRS ASA PO QD NORVASC PO QD COVID-19 PCR ~ RESULT PENDING MED SURG STATUS DCPL;FROM [facility]
[2019-10-22 16:00] VITALS: BP 136/72
--- NOTE | 2019-10-22 19:00 | NUR ---
NURSE NOTES: patient refusing to take medication at this time. Dialysis cathetr remains with strong bruit and thrill/patient was swab for Covid-19 as ordered today.Bed alarm is on.
--- NOTE | 2019-10-22 19:37 | NUR ---
HAND-OFF: Report given to Jonathan RODRIGUEZ aware of fall risk..
[2019-10-22 20:00] VITALS: BP 144/83
--- NOTE | 2019-10-22 20:02 | NUR ---
NURSE NOTES: Received patient asleep in bed, easily arousable, no s/s of acute distress. P200 mattress noted. IV access intact, flushed with normal saline, patient tolerating well. Bed low and locked, needs attended to at this time.
[2019-10-22] MEDS: Atorvastatin 80mg tab ORAL SCH (20:59)
--- NOTE | 2019-10-22 21:21 | Nephrology Progress Note ---
Assessment/Plan Problem List: (1) ESRD (end stage renal disease) (2) Missed dialysis (3) Hypertensive nephrosclerosis (4) Anemia in chronic kidney disease (5) CVA, old, cognitive deficits Plan HD 10/22 Subjective ROS Limited/Unobtainable: Yes Objective Objective Last 24 Hour Vital Signs Date Time Temp Pulse Resp B/P (MAP) Pulse Ox O2 Delivery O2 Flow Rate FiO2 10/22/19 20:00 97.0 79 18 144/83 (103) 96 10/22/19 16:00 98.2 80 18 136/72 (93) 98 10/22/19 12:00 97.5 75 18 140/79 (99) 98 10/22/19 10:44 80 146/76 10/22/19 09:00 Room Air 10/22/19 08:00 97.5 76 19 138/80 (99) 98 10/22/19 04:00 97.9 72 17 143/81 (101) 98 10/21/19 22:35 Room Air Intake and Output 10/21/19 10/22/19 19:00 07:00 Intake Total 120 ml 25 ml Output Total 2000 ml Balance -1880 ml 25 ml Intake Oral 120 ml 25 ml Output Hemodialysis UF 2000 ml # Voids 2 1 Height (Feet): 5 Height (Inches): 6.00 Weight (Pounds): 122 General Appearance: confused EENT: normal ENT inspection Neck: normal alignment Cardiovascular: regular rhythm Respiratory/Chest: lungs clear Abdomen: soft Extremities: no edema Neurologic: motor weakness Dylon Stringer MD Oct 22, 2019 21:21
--- NOTE | 2019-10-22 23:00 | NUR ---
NURSE NOTES: [facility] called to confirm HD for 6/2.
--- NOTE | 2019-10-22 23:30 | Progress Note ---
DATE: 10/22/2019 CARDIOLOGY PROGRESS NOTE SUBJECTIVE: The patient has no new complaints. She was cooperative with dialysis today. No distress noted. Blood pressure parameters have improved. PHYSICAL EXAMINATION: VITAL SIGNS: Blood pressure 143/81, heart rate 72, respirations 17. NECK: Jugular venous pressure slightly elevated. LUNGS: With clear breath sounds. CARDIAC: Regular rhythm and rate. Normal S1, S2 with a fourth heart sound. ABDOMEN: Soft, nontender. EXTREMITIES: No edema. LABORATORIES: Noted. IMPRESSION: Overall improved near baseline and hemodynamically stabilized. PLAN: 1. Continue current cardiovascular regimen. 2. Return to shelter facility on current medications. 3. Compliance with dialysis 3 times a week. . 4. We will follow as needed. Bulmaro Hester M.D. DR: EVA JOB#: [id number] CC:
[2019-10-23] VITALS: BP 139/66
[2019-10-23 04:00] VITALS: BP 148/77
--- NOTE | 2019-10-23 07:08 | General Progress Note ---
Assessment/Plan Problem List: (1) Missed dialysis SNOMED: 540527520 (2) Dementia ICD Codes: F03.90 - Unspecified dementia without behavioral disturbance SNOMED: 87207044 (3) Weakness ICD Codes: R53.1 - Weakness SNOMED: 42265473 (4) ESRD (end stage renal disease) ICD Codes: N18.6 - End stage renal disease SNOMED: 22451212 (5) Hypertensive nephrosclerosis ICD Codes: I12.9 - Hypertensive chronic kidney disease with stage 1 through stage 4 chronic kidney disease, or unspecified chronic kidney disease SNOMED: 273220617 (6) Anemia in chronic kidney disease ICD Codes: N18.9 - Chronic kidney disease, unspecified; D63.1 - Anemia in chronic kidney disease SNOMED: 595477160 (7) CVA, old, cognitive deficits ICD Codes: I69.319 - Unspecified symptoms and signs involving cognitive functions following cerebral infarction SNOMED: 41311475, 614591008, 400156280, 372220665 Status: stable Assessment/Plan: cont current rx HD compliance stressed titrate bp rx anxiolytics skin care renal and cards appreciated psych eval called Subjective ROS Limited/Unobtainable: No Constitutional: Reports: malaise, weakness HEENT: Reports: no symptoms Cardiovascular: Reports: no symptoms Respiratory: Reports: no symptoms Gastrointestinal/Abdominal: Reports: no symptoms Genitourinary: Reports: no symptoms Neurologic/Psychiatric: Reports: anxiety, emotional problems Endocrine: Reports: no symptoms Hematologic/Lymphatic: Reports: no symptoms Allergies: Coded Allergies: No Known Allergies (Unverified , 02/27/19) All Systems: reviewed and negative except above Subjective uncooperative with care last night. aggressive. more alert. took meds after repeated encouragement from staff. due for HD today. Objective Last 24 Hour Vital Signs Date Time Temp Pulse Resp B/P (MAP) Pulse Ox O2 Delivery O2 Flow Rate FiO2 10/23/19 04:00 97.2 72 18 148/77 (100) 96 10/23/19 00:00 97.0 68 18 139/66 (90) 96 10/22/19 21:35 Room Air 10/22/19 20:00 97.0 79 18 144/83 (103) 96 10/22/19 16:00 98.2 80 18 136/72 (93) 98 10/22/19 12:00 97.5 75 18 140/79 (99) 98 10/22/19 10:44 80 146/76 10/22/19 09:00 Room Air 10/22/19 08:00 97.5 76 19 138/80 (99) 98 Intake and Output 10/22/19 10/23/19 19:00 07:00 Intake Total 820 ml Balance 820 ml Intake Oral 820 ml # Voids 1 # Bowel Movements 1 Height (Feet): 5 Height (Inches): 6.00 Weight (Pounds): 122 Objective General Appearance: WD/WN, alert, confused EENT: PERRL/EOMI, normal ENT inspection Neck: non-tender, normal alignment, supple Cardiovascular: normal peripheral pulses, normal rate Respiratory/Chest: chest wall non-tender, lungs clear, normal breath sounds Abdomen: normal bowel sounds, non tender, soft, no organomegaly, no mass Extremities: normal range of motion, non-tender Edema: no edema noted Arm (L), no edema noted Arm (R), no edema noted Leg (L), no edema noted Leg (R), no edema noted Pedal (L), no edema noted Pedal (R), no edema noted 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
--- NOTE | 2019-10-23 07:30 | NUR ---
HAND-OFF: Report given to MICHAEL Cruz.
[2019-10-23 08:00] VITALS: BP 139/75
[2019-10-23] MEDS: Heparin 5000 units/ml inj SUBQ SCH ×2 (09:00→21:00)
[2019-10-23] MEDS: Aspirin Baby 81mg ORAL SCH (09:23)
--- NOTE | 2019-10-23 09:38 | NUR ---
NURSE NOTES: PT AXOX1, CALM, RESTING IN BED. PT IS NOT VERY TALKATIVE. SOMETIMES DOESN'T RESPOND TO RN'S QUESTIONS. PT ANSWERS SIMPLE "YES OR NO" QUESTIONS AT TIMES. PT ABLE TO TAKE MEDICATIONS CRUSHED. IN NO APPARENT DISTRESS AT THIS TIME. LEFT AV SHUNT WITH THRILL AND BRUIT. IN HIGH-DEL CASTILLO'S POSITION WITH BED IN LOWEST POSITION. BEDSIDE RAILS X3 RAISED. CALL LIGHT WITHIN REACH. PT IS ON P2OO MATTRESS. VSS. WILL CONTINUE TO MONITOR.
[2019-10-23 12:00] VITALS: BP 140/69
--- NOTE | 2019-10-23 12:43 | Surgery Progress Note ---
Surgery Progress Note Subjective Additional Comments afebrile, HD stable micro reviewed exam stable not very talkative Objective Last 24 Hour Vital Signs Date Time Temp Pulse Resp B/P (MAP) Pulse Ox O2 Delivery O2 Flow Rate FiO2 10/23/19 09:23 75 139/75 10/23/19 09:00 Room Air 10/23/19 08:00 97.4 75 18 139/75 (96) 97 10/23/19 04:00 97.2 72 18 148/77 (100) 96 10/23/19 00:00 97.0 68 18 139/66 (90) 96 10/22/19 21:35 Room Air 10/22/19 20:00 97.0 79 18 144/83 (103) 96 10/22/19 16:00 98.2 80 18 136/72 (93) 98 I&O Intake and Output 10/22/19 10/23/19 19:00 07:00 Intake Total 820 ml Balance 820 ml Intake Oral 820 ml # Voids 1 # Bowel Movements 1 Dressing: other Wound: other Drains: other Cardiovascular: RSR Respiratory: decreased breath sounds Abdomen: soft, non-tender, present bowel sounds Extremities: no cyanosis Plan Problems: (1) Deep tissue injury Assessment & Plan: Pt presented on admission with Sacral DTPI. Base of wound is indurated purple in colour with surrounding non-blanching erythema. Non-blanching erythema noted to R and L ischial tuberosities and posterior aspects of Upper R and L thighs. Tx.Plan: Apply Moisture Barrier Paste to Sacrum. Cover with Optifoam drsg. Change every 3 days and prn Apply Cavilon Skin BArrier to R and L trochanteric areas. Cover each site with Optifoam drsg.Change every 7 days and prn. \Apply Cavilon Skin Barrier to both heels.Cover each heel with Optifoam drsg. Change every 7 days and prn. Reposition at least every 2hours or as tolerated. Off-load heels with pillow. APM/MADALYN Mattress overlay. (2) Dementia (3) Hypertensive nephrosclerosis (4) Anemia in chronic kidney disease (5) CVA, old, cognitive deficits (6) Chronic renal failure (7) Missed dialysis (8) Weakness Assessment & Plan: Patient is felt fairly weak and since missing her dialysis has deteriorated currently pending dialysis. On admission deep tissue injury noted likely from patient's noncompliance laying in 1 position for too long and not wanting to move or go to dialysis. Furthermore patient confused currently pending psych eval. Weakness likely related to above and will assist in care plan to help ensure improvement if deterioration will be detrimental (9) ESRD (end stage renal disease) Jesse Quinn Oct 23, 2019 12:43
--- NOTE | 2019-10-23 13:34 | NUR ---
NURSE NOTES: RN SPOKE TO MARC (BULB F[employer]WORK[employer]) AND ASKED WHAT TIME PT WILL BE DIALYZED TODAY. PER MARC, SHE WILL SEE PT LATER TODAY.
[2019-10-23 16:00] VITALS: BP 155/70
--- NOTE | 2019-10-23 19:02 | NUR ---
HAND-OFF: Report given to Martin DRAKE RN.
[2019-10-23 20:00] VITALS: BP 127/70
--- NOTE | 2019-10-23 20:14 | NUR ---
NURSE NOTES: HD finished, 2L out. Fistula redressed with no active bleeding at site. Patient resting comfortably, no s/s of acute distress.
--- NOTE | 2019-10-23 20:47 | Nephrology Progress Note ---
Assessment/Plan Problem List: (1) ESRD (end stage renal disease) (2) Missed dialysis (3) Hypertensive nephrosclerosis (4) Anemia in chronic kidney disease (5) CVA, old, cognitive deficits Plan HD 10/22, encourage compliance Subjective ROS Limited/Unobtainable: Yes Objective Objective Last 24 Hour Vital Signs Date Time Temp Pulse Resp B/P (MAP) Pulse Ox O2 Delivery O2 Flow Rate FiO2 10/23/19 20:00 97.2 81 18 127/70 (89) 97 10/23/19 16:00 97.5 72 18 155/70 (98) 97 10/23/19 12:00 97.5 75 17 140/69 (92) 99 10/23/19 09:23 75 139/75 10/23/19 09:00 Room Air 10/23/19 08:00 97.4 75 18 139/75 (96) 97 10/23/19 04:00 97.2 72 18 148/77 (100) 96 10/23/19 00:00 97.0 68 18 139/66 (90) 96 10/22/19 21:35 Room Air Intake and Output 10/22/19 10/23/19 18:59 06:59 Intake Total 820 ml Balance 820 ml Intake Oral 820 ml # Voids 1 # Bowel Movements 1 Height (Feet): 5 Height (Inches): 6.00 Weight (Pounds): 122 General Appearance: lethargic, confused Neck: supple Cardiovascular: normal rate Respiratory/Chest: chest wall non-tender Abdomen: non tender, soft Extremities: no edema Neurologic: motor weakness, disoriented Dylon Stringer MD Oct 23, 2019 20:47
[2019-10-23] MEDS ORDERED: Heparin Sod 1000 units/ml 10ml IV SCH (21:30)
[2019-10-23] MEDS: Atorvastatin 80mg tab ORAL SCH (21:36)
[2019-10-24] VITALS: BP 130/71
--- NOTE | 2019-10-24 03:45 | Consultation ---
DATE OF CONSULTATION: 10/23/2019 HISTORY OF PRESENT ILLNESS: This is a 74-year-old female with a history of end-stage renal failure, congestive heart failure, dementia, and hypertension, who is known to me from . The patient is withdrawn, . She is more confused than baseline. Episodes of anxiety, weak. PAST PSYCHIATRIC HISTORY: The patient has a history of depression, dementia, and anxiety disorder. The patient has Lexapro and risperidone 1 mg p.o. b.i.d., off and on the facility. PAST MEDICAL HISTORY: Significant for CVA, hypertension, end-stage renal disease, and dementia. ALLERGIES: No known drug allergies. SUBSTANCE ABUSE HISTORY: No known history of illicit drug use or alcohol. MENTAL STATUS EXAMINATION: The patient is alert, oriented times self. Mood is depressed. Affect is constricted. Mood congruent. Thought content, no suicidal or homicidal ideation. Cognition is impaired. Insight and judgment impaired. ASSESSMENT: [place] I Dementia, most likely vascular type. Major depressive disorder. Anxiety disorder. [place] II Deferred. [place] III Hypertension. [place] IV [place] V Renal failure, on hemodialysis. PLAN: 1. Lexapro 10 mg in the morning. 2. Risperidone 1 mg b.i.d. 3. Ativan p.r.n. 4. The patient lacks capacity to refuse any medications or care . Binh Baltazar M.D. DR: JOHN JOB#: [id number] CC:
[2019-10-24 04:00] VITALS: BP 130/63
--- NOTE | 2019-10-24 07:12 | NUR ---
Nurse notes: Dr Quevedo aware of latest negative covid swab. Dr Quevedo aware that patient bit RN's hand today while cleaning patient.
--- NOTE | 2019-10-24 07:30 | NUR ---
NURSE NOTES: Received patient in bed. Awake, A/O x2. On room air. No signs of pain or distress. IV in the right forear,, site intact. Side rails up x3. Bed low and locked.
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
[2019-10-24] MEDS ORDERED: LEXAPRO10 MG ORAL (07:33)
[2019-10-24] MEDS ORDERED: CATAPRES TTS-1 PATCH TDERMAL (07:33)
[2019-10-24] MEDS ORDERED: ASPIRIN81 MG ORAL (07:33)
[2019-10-24] MEDS ORDERED: RISPERDAL1 MG ORAL (07:33)
[2019-10-24] MEDS ORDERED: LIPITOR80 MG ORAL (07:33)
[2019-10-24] MEDS ORDERED: NORVASC10 MG ORAL (07:33)
--- NOTE | 2019-10-24 07:42 | NUR ---
HAND-OFF: Report given to MICHAEL Loyola.
[2019-10-24 08:00] VITALS: BP 143/72
[2019-10-24] MEDS: Aspirin Baby 81mg ORAL SCH (08:28)
[2019-10-24] MEDS: Heparin 5000 units/ml inj SUBQ SCH ×2 (08:29→20:24)
--- NOTE | 2019-10-24 09:04 | NUR ---
RD ASSESSMENT & RECOMMENDATIONS SEE CARE ACTIVITY FOR COMPLETE ASSESSMENT DAILY ESTIMATED NEEDS: Needs based on Renal, HD, wound, suspected wt loss/ 55.5kg 30-35 kcals/kg 1428-9937 total kcals 1.25-1.8 g protein/kg 74-99 g total protein fluids per MD NUTRITION DIAGNOSIS: Increased kcal/prot intake needs R/T renal dysfunction, suspected wt loss, wound healing as evidenced by ESRD dx, on HD, suspected significant wt loss of 14lbs/10.5% in 6 months, admitted w/ sacral DTPI, non-blanching erythema at R and L ischial tuberosities and posterior aspects of Upper R and L thighs. CURRENT DIET:RENAL PO DIET RECOMMENDATIONS: RENAL/ texture as tolerated or per SALES AND SERVICE ENGINEER ADDITIONAL RECOMMENDATIONS: * Calibrated bedscale wt for accurate CBW- suspected wt loss -> obtain dry wt post HD * Nepro 1 tetra penny BID: 425kcal/19g prot per penny * Consider SALES AND SERVICE ENGINEER eval for appropriate texture: h/o CVA * Wound healing: add Nephrovite x 1 and Josué BID * Monitor lytes and renal fxn: K wnl, check phos and mag * Monitor BGs, need for hypoglycemics or carb controlled diet- h/o DM
--- NOTE | 2019-10-24 10:01 | NUR ---
DISCHARGE PLANNING PATIENT HAS BEEN REFERRED BACK TO [facility] P: [phone] F: [phone]
[2019-10-24 12:00] VITALS: BP 136/77
--- NOTE | 2019-10-24 12:15 | Progress Note ---
DATE: 10/23/2019 CARDIOLOGY PROGRESS NOTE SUBJECTIVE: The patient has some agitation, aggressive behavior, and was uncooperative with care for a while. Ultimately, she took her medications with encouragement. The patient has no respiratory distress. PHYSICAL EXAMINATION: VITAL SIGNS: Blood pressure 148/77, heart rate 72, respiratory rate 18, and afebrile. LUNGS: Bilateral breath sounds. No wheezing or rales. CARDIAC: Regular rhythm and rate. Normal S1 and S2 with a fourth heart sound. ABDOMEN: Soft. EXTREMITIES: Trace edema. IMPRESSION: 1. Dementia with agitation. 2. Metabolic encephalopathy. 3. End-stage renal disease. 4. Hypertensive heart disease. 5. Acute on chronic diastolic congestive heart failure. PLAN: Continue efforts at administering medications and ensuring compliance with dialysis sessions. Discharge planning once stable in this regard. No interim change in cardiovascular medications planned. Bulmaro Hester M.D. DR: RADHAMES JOB#: [id number] CC:
--- NOTE | 2019-10-24 12:41 | NUR ---
CASE MANAGEMENT:REVIEW SI;ESRD on HD. WEAKNESS. 98.6 84 18 143/72 97% ON RA IS;ASA PO QD LEXAPRO PO QD HEPARIN SUBQ Q12 HRS NORVASC PO QD MED SURG STATUS DCP;FROM [facility] PLAN;DC TO SNF
--- NOTE | 2019-10-24 12:57 | Nephrology Progress Note ---
Assessment/Plan Problem List: (1) ESRD (end stage renal disease) (2) Missed dialysis (3) Hypertensive nephrosclerosis (4) Anemia in chronic kidney disease (5) CVA, old, cognitive deficits Plan HD 10/22, next 10/24 encourage compliance Subjective ROS Limited/Unobtainable: Yes Objective Objective Last 24 Hour Vital Signs Date Time Temp Pulse Resp B/P (MAP) Pulse Ox O2 Delivery O2 Flow Rate FiO2 10/24/19 09:00 Room Air 10/24/19 08:28 84 143/72 10/24/19 08:00 98.6 84 17 143/72 (95) 97 10/24/19 04:00 97.8 76 18 130/63 (85) 97 10/24/19 00:00 97.5 82 18 130/71 (90) 97 10/23/19 22:44 Room Air 10/23/19 20:00 97.2 81 18 127/70 (89) 97 10/23/19 16:00 97.5 72 18 155/70 (98) 97 Intake and Output 10/23/19 10/24/19 19:00 07:00 Intake Total 240 ml 118 ml Balance 240 ml 118 ml Intake Oral 240 ml Other 118 ml # Voids 1 # Bowel Movements 1 1 Height (Feet): 5 Height (Inches): 6.00 Weight (Pounds): 122 General Appearance: confused EENT: normal ENT inspection Neck: normal alignment Cardiovascular: normal rate, regular rhythm Respiratory/Chest: lungs clear Abdomen: soft Neurologic: motor weakness, disoriented Dylon Stringer MD Oct 24, 2019 12:57
--- NOTE | 2019-10-24 14:45 | NUR ---
*-*DISCHARGE PLANNING*-* PATIENT HAS BEEN ACCEPTED BACK TO: [facility] P: [phone] FOR NURSE TO NURSE REPORT RM# 22.A SNF S/W MICHAEL, WILL ACCEPT PATIENT, & STATED SHE TOLD THE DRPerri TO DISCHARGE THIS PATIENT TOMORROW 10/25/2019.
--- NOTE | 2019-10-24 15:33 | NUR ---
SCIENTIST/ENGINEER NOTE:DIALYSIS CALL MADE TO [facility] @ [phone] S/W CRISTOPHER WHO CONFIRMED PATIENTS CHAIR TIME ON @ 1330 PM PER CRISTOPHER, RESUMPTION OF SERVICE WILL RESUME UPON HOSPITAL DISCHARGE ALL INPATIENT CLINICALS FAXED TO [phone]
--- NOTE | 2019-10-24 15:56 | NUR ---
NURSE NOTES: [facility] nurse (Young) to come tomorrow for HD. No time given.
[2019-10-24 16:00] VITALS: BP 131/77
--- NOTE | 2019-10-24 19:10 | NUR ---
HAND-OFF: Report given to Kim RODRIGUEZ.
--- NOTE | 2019-10-24 20:00 | NUR ---
NURSE NOTES: Received patient comfortably sleeping. Kept clean and dry.
[2019-10-24 20:06] VITALS: BP 144/77
[2019-10-24] MEDS: Atorvastatin 80mg tab ORAL SCH (20:23)
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
--- NOTE | 2019-10-24 23:17 | Psych Consult Progress Note ---
Psychiatry Progress Note Psychiatry Progress Note Subjective the pt is withdrawn weak Medications Current Medications Medications (Trade) Dose Ordered Sig/Jeanne Route PRN Reason Start Time Stop Time Status Last Admin Dose Admin Acetaminophen/ Hydrocodone Bitart ([place] 10/325) 1 tab Q4H PRN ORAL For Pain 10/19/19 22:45 10/26/19 22:44 10/23/19 17:53 Amlodipine Besylate (Norvasc) 10 mg DAILY ORAL 10/19/19 23:00 11/18/19 22:59 10/24/19 08:28 Aspirin (ASA) 81 mg DAILY ORAL 10/20/19 09:00 12/04/19 08:59 10/24/19 08:28 Atorvastatin Calcium (Lipitor) 80 mg BEDTIME ORAL 10/20/19 21:00 01/18/20 20:59 10/24/19 20:23 Clonidine HCl (Catapres TTS-1) 1 patch QWEEK TDERMAL 10/21/19 16:00 01/19/20 15:59 10/21/19 18:08 Escitalopram Oxalate (Lexapro) 10 mg DAILY ORAL 10/24/19 09:00 11/23/19 08:59 10/24/19 08:28 Heparin Sodium (Porcine) (Heparin 5000 units/ml) 5,000 units EVERY 12 HOURS SUBQ 10/20/19 09:00 12/04/19 08:59 10/24/19 20:24 Heparin Sodium (Porcine) (Heparin Sod 1000 units/ml 10ml) 2,000 unit ONCE ONCE IV 10/25/19 21:00 10/25/19 21:01 Lorazepam (Ativan 2mg/ml 1ml) 1 mg Q4H PRN IV For Anxiety 10/19/19 23:00 10/26/19 22:59 Risperidone (RisperDAL) 1 mg BID ORAL 10/19/19 22:45 12/03/19 22:44 10/24/19 18:18 Sodium Chloride 1,000 ml @ 500 mls/hr Q2H PRN IVLG sbp<90 during hd 10/23/19 21:18 11/22/19 21:17 Sodium Chloride 1,000 ml @ 500 mls/hr Q2H PRN IVLG sbp<90 during hd 10/25/19 20:53 11/24/19 20:52 Neurological/Psychiatric: Reports: anxiety, depressed, emotional problems Allergies: Coded Allergies: No Known Allergies (Unverified , 02/27/19) Objective Data Height (Feet): 5 Height (Inches): 6.00 Weight (Pounds): 122 Additional Comments: alert, oriented times self. Mood is depressed. Affect is constricted. Mood congruent. Thought content, no suicidal or homicidal ideation. Cognition is impaired. Insight and judgment impaired. Assessment/Plan Status: stable Assessment/Plan: ASSESSMENT: [place] I Dementia, most likely vascular type. Major depressive disorder. Anxiety disorder. PLAN: 1. Lexapro 10 mg in the morning. 2. Risperidone 1 mg b.i.d. 3. Ativan p.r.n. 4. The patient lacks capacity to refuse any medications or care. Binh Baltazar MD Oct 24, 2019 23:17
[2019-10-25 00:01] VITALS: BP 150/73
[2019-10-25 04:00] VITALS: BP 153/84
--- NOTE | 2019-10-25 07:23 | NUR ---
HAND-OFF: Report given to Nir Harris RN.
--- NOTE | 2019-10-25 07:30 | NUR ---
NURSE NOTES: Received patient in bed. Awake, A/O x2. On room air. Patient denies pain. IV in the Right forearm, site intact. HD site in the Left upper arm, site intact. Bed low and locked.
[2019-10-25 08:00] VITALS: BP 145/72
[2019-10-25] MEDS: Aspirin Baby 81mg ORAL SCH (08:19)
[2019-10-25] MEDS: Heparin 5000 units/ml inj SUBQ SCH ×2 (08:22→22:14)
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
[2019-10-25 12:00] VITALS: BP 136/78
--- NOTE | 2019-10-25 13:39 | Nephrology Progress Note ---
Assessment/Plan Problem List: (1) ESRD (end stage renal disease) (2) Missed dialysis (3) Hypertensive nephrosclerosis (4) Anemia in chronic kidney disease (5) CVA, old, cognitive deficits Plan HD 10/22 -1999, next 10/24 encourage compliance, intermittent agitation Subjective ROS Limited/Unobtainable: Yes Objective Objective Last 24 Hour Vital Signs Date Time Temp Pulse Resp B/P (MAP) Pulse Ox O2 Delivery O2 Flow Rate FiO2 10/25/19 09:00 Room Air 10/25/19 08:19 83 145/72 10/25/19 08:00 98.0 83 17 145/72 (96) 97 10/25/19 04:00 98.7 92 19 153/84 (107) 95 10/25/19 00:01 99.0 85 19 150/73 (98) 96 10/24/19 20:06 99.0 94 19 144/77 (99) 96 10/24/19 20:02 Room Air 10/24/19 16:00 97.5 80 18 131/77 (95) 98 Intake and Output 10/24/19 10/25/19 19:00 07:00 Intake Total 500 ml Balance 500 ml Other 500 ml # Voids 1 # Bowel Movements 1 Height (Feet): 5 Height (Inches): 6.00 Weight (Pounds): 122 General Appearance: lethargic, confused EENT: normal ENT inspection Neck: normal alignment Cardiovascular: regular rhythm Respiratory/Chest: lungs clear Abdomen: non tender Extremities: no edema Neurologic: motor weakness, disoriented Dylon Stringer MD Oct 25, 2019 13:39
[2019-10-25 16:00] VITALS: BP 131/79
--- NOTE | 2019-10-25 16:40 | Surgery Progress Note ---
Surgery Progress Note Subjective Additional Comments no acute events comfortable stable Objective Last 24 Hour Vital Signs Date Time Temp Pulse Resp B/P (MAP) Pulse Ox O2 Delivery O2 Flow Rate FiO2 10/25/19 12:00 97.5 81 18 136/78 (97) 98 10/25/19 09:00 Room Air 10/25/19 08:19 83 145/72 10/25/19 08:00 98.0 83 17 145/72 (96) 97 10/25/19 04:00 98.7 92 19 153/84 (107) 95 10/25/19 00:01 99.0 85 19 150/73 (98) 96 10/24/19 20:06 99.0 94 19 144/77 (99) 96 10/24/19 20:02 Room Air I&O Intake and Output 10/24/19 10/25/19 19:00 07:00 Intake Total 500 ml Balance 500 ml Other 500 ml # Voids 1 # Bowel Movements 1 Dressing: other Wound: other Drains: other Cardiovascular: RSR Respiratory: decreased breath sounds Abdomen: soft, present bowel sounds Extremities: no cyanosis Plan Problems: (1) Deep tissue injury Assessment & Plan: Pt presented on admission with Sacral DTPI. Base of wound is indurated purple in colour with surrounding non-blanching erythema. Non-blanching erythema noted to R and L ischial tuberosities and posterior aspects of Upper R and L thighs. Tx.Plan: Apply Moisture Barrier Paste to Sacrum. Cover with Optifoam drsg. Change every 3 days and prn Apply Cavilon Skin BArrier to R and L trochanteric areas. Cover each site with Optifoam drsg.Change every 7 days and prn. \Apply Cavilon Skin Barrier to both heels.Cover each heel with Optifoam drsg. Change every 7 days and prn. Reposition at least every 2hours or as tolerated. Off-load heels with pillow. APM/MADALYN Mattress overlay. (2) Dementia (3) Hypertensive nephrosclerosis (4) Anemia in chronic kidney disease (5) CVA, old, cognitive deficits (6) Chronic renal failure (7) Missed dialysis (8) Weakness Assessment & Plan: Patient is felt fairly weak and since missing her dialysis has deteriorated currently pending dialysis. On admission deep tissue injury noted likely from patient's noncompliance laying in 1 position for too long and not wanting to move or go to dialysis. Furthermore patient confused currently pending psych eval. Weakness likely related to above and will assist in care plan to help ensure improvement if deterioration will be detrimental (9) ESRD (end stage renal disease) Jesse Quinn Oct 25, 2019 16:40
--- NOTE | 2019-10-25 18:00 | NUR ---
NURSE NOTES: HD completed. 2 L removed by dialysis nurse. BP 130/67, HR 82.
--- NOTE | 2019-10-25 19:34 | NUR ---
HAND-OFF: Report given to Matt RODRIGUEZ.
--- NOTE | 2019-10-25 19:57 | NUR ---
NURSE NOTES: Received report from Nir Harris RN. The resident is alert and oriented x2 and does not seem to be in any distress. When asks d if she is in pain, she did not respond and was just looking at me with no facial grimacy noted.The resp is even and unlabored and the bilateral lung sounds clear on Auscultation. will continue to monitor
[2019-10-25 20:00] VITALS: BP 136/68
[2019-10-25] MEDS ORDERED: Heparin Sod 1000 units/ml 10ml IV ONE (21:00)
[2019-10-25] MEDS: Atorvastatin 80mg tab ORAL SCH (22:10)
[2019-10-26] VITALS: BP 134/66
--- NOTE | 2019-10-26 00:20 | Psych Consult Progress Note ---
Psychiatry Progress Note Psychiatry Progress Note Medications Current Medications Medications (Trade) Dose Ordered Sig/Jeanne Route PRN Reason Start Time Stop Time Status Last Admin Dose Admin Acetaminophen/ Hydrocodone Bitart ([place] 10/325) 1 tab Q4H PRN ORAL For Pain 10/19/19 22:45 10/26/19 22:44 10/23/19 17:53 Amlodipine Besylate (Norvasc) 10 mg DAILY ORAL 10/19/19 23:00 11/18/19 22:59 10/25/19 08:19 Aspirin (ASA) 81 mg DAILY ORAL 10/20/19 09:00 12/04/19 08:59 10/25/19 08:19 Atorvastatin Calcium (Lipitor) 80 mg BEDTIME ORAL 10/20/19 21:00 01/18/20 20:59 10/25/19 22:10 Clonidine HCl (Catapres TTS-1) 1 patch QWEEK TDERMAL 10/21/19 16:00 01/19/20 15:59 10/21/19 18:08 Escitalopram Oxalate (Lexapro) 10 mg DAILY ORAL 10/24/19 09:00 11/23/19 08:59 10/25/19 08:19 Heparin Sodium (Porcine) (Heparin 5000 units/ml) 5,000 units EVERY 12 HOURS SUBQ 10/20/19 09:00 12/04/19 08:59 10/25/19 22:14 Lorazepam (Ativan 2mg/ml 1ml) 1 mg Q4H PRN IV For Anxiety 10/19/19 23:00 10/26/19 22:59 Risperidone (RisperDAL) 1 mg BID ORAL 10/19/19 22:45 12/03/19 22:44 10/25/19 18:04 Sodium Chloride 1,000 ml @ 500 mls/hr Q2H PRN IVLG sbp<90 during hd 10/23/19 21:18 11/22/19 21:17 Sodium Chloride 1,000 ml @ 500 mls/hr Q2H PRN IVLG sbp<90 during hd 10/25/19 20:53 11/24/19 20:52 Allergies: Coded Allergies: No Known Allergies (Unverified , 02/27/19) Objective Data Height (Feet): 5 Height (Inches): 6.00 Weight (Pounds): 122 Assessment/Plan Status: stable Assessment/Plan: ASSESSMENT: [place] I Dementia, most likely vascular type. Major depressive disorder. Anxiety disorder. PLAN: 1. Lexapro 10 mg in the morning. 2. Risperidone 1 mg b.i.d. 3. Ativan p.r.n. 4. The patient lacks capacity to refuse any medications or care. Binh Baltazar MD Oct 26, 2019 00:20
[2019-10-26 04:00] VITALS: BP 140/71
--- NOTE | 2019-10-26 05:04 | NUR ---
NURSE NOTES: The patient was able to sleep all night long and does not appear to be in any distress. No complained of pain noted. Her IV line was dislodged. She is a hemodialysis patient and has a left upper arm assess site that is intact with clean dressing noted The bruit and thrills all positive. Will continue to monitor
--- NOTE | 2019-10-26 06:45 | Progress Note ---
DATE: 10/25/2019 CARDIOLOGY PROGRESS NOTE SUBJECTIVE: The patient is status post hemodialysis with ultrafiltration today. Intermittent episodes of agitation are noted. No respiratory distress. PHYSICAL EXAMINATION: VITAL SIGNS: Blood pressure 145/72, heart rate 83, respirations 17, no fevers, T-max 99, room air oxygen sat 95 to 97%. LUNGS: Bilateral breath sounds. No wheezing or rales. Jugular venous pressure is slightly elevated. Lungs clear. CARDIAC: Regular rhythm and rate. Normal S1, S2 with a fourth heart sound. ABDOMEN: Soft. EXTREMITIES: No edema. IMPRESSION: 1. Acute on chronic diastolic congestive heart failure. 2. Metabolic encephalopathy. 3. End-stage renal disease with missed dialysis sessions. PLAN: 1. Titration of cardiovascular medications as needed. 2. Stabilization of psych regimen and confirmation of compliance prior to discharge to a shelter facility. 3. Continue hemodialysis with ultrafiltration 3 times a week. Bulmaro Hester M.D. DR: EVA JOB#: [id number] CC:
--- NOTE | 2019-10-26 06:49 | NUR ---
Spoke with Dr. Jerome, He said he will be putting a new discharge order for the patient and that is ok for the patient not to have a new IV line
--- NOTE | 2019-10-26 07:00 | NUR ---
HAND-OFF: Report given to Nir RODRIGUEZ.The resident is alert and stable, she disloged her IV line but is currently not receiving any fluids.The Daughter called asking about the patient discharge planning. Endorsed to Nir to folloup with the discharged planning with the physician.
--- NOTE | 2019-10-26 07:30 | NUR ---
NURSE NOTES: Received patient in bed. Awake, A/O x2. OIn room air. Patient denies pain. No IV site in place, MD aware. HD site in the Left upper arm, site intact. Bed low and locked.
[2019-10-26 08:00] VITALS: BP 141/67
[2019-10-26] MEDS: Aspirin Baby 81mg ORAL SCH (08:47)
[2019-10-26] MEDS: Heparin 5000 units/ml inj SUBQ SCH (08:50)
--- NOTE | 2019-10-26 09:50 | General Progress Note ---
Assessment/Plan Problem List: (1) Missed dialysis SNOMED: 519536171 (2) Dementia ICD Codes: F03.90 - Unspecified dementia without behavioral disturbance SNOMED: 40350507 (3) Weakness ICD Codes: R53.1 - Weakness SNOMED: 76878158 (4) ESRD (end stage renal disease) ICD Codes: N18.6 - End stage renal disease SNOMED: 39754961 (5) Hypertensive nephrosclerosis ICD Codes: I12.9 - Hypertensive chronic kidney disease with stage 1 through stage 4 chronic kidney disease, or unspecified chronic kidney disease SNOMED: 113961565 (6) Anemia in chronic kidney disease ICD Codes: N18.9 - Chronic kidney disease, unspecified; D63.1 - Anemia in chronic kidney disease SNOMED: 150318370 (7) CVA, old, cognitive deficits ICD Codes: I69.319 - Unspecified symptoms and signs involving cognitive functions following cerebral infarction SNOMED: 29758776, 805630073, 817089611, 030412764 Status: stable Assessment/Plan: cont current rx HD compliance stressed titrate bp rx anxiolytics skin care renal and cards appreciated psych eval appreciated dc planning today Subjective ROS Limited/Unobtainable: No Constitutional: Reports: malaise, weakness HEENT: Reports: no symptoms Cardiovascular: Reports: no symptoms Respiratory: Reports: no symptoms Gastrointestinal/Abdominal: Reports: no symptoms Genitourinary: Reports: no symptoms Neurologic/Psychiatric: Reports: no symptoms Endocrine: Reports: no symptoms Hematologic/Lymphatic: Reports: no symptoms Allergies: Coded Allergies: No Known Allergies (Unverified , 02/27/19) All Systems: reviewed and negative except above Subjective no events. stable. covid neg. tolerating po. compliant with meds. Objective Last 24 Hour Vital Signs Date Time Temp Pulse Resp B/P (MAP) Pulse Ox O2 Delivery O2 Flow Rate FiO2 10/26/19 08:47 83 141/67 10/26/19 08:00 97.7 83 20 141/67 (91) 97 10/26/19 04:00 98.8 90 18 140/71 (94) 97 10/26/19 00:00 98.8 79 18 134/66 (88) 96 10/25/19 21:00 Room Air 10/25/19 20:00 98.5 72 18 136/68 (90) 95 10/25/19 16:00 98.2 81 17 131/79 (96) 96 10/25/19 12:00 97.5 81 18 136/78 (97) 98 Intake and Output 10/25/19 10/26/19 19:00 07:00 Output Total 2000 ml Balance -2000 ml Output Hemodialysis UF 2000 ml # Voids 1 Height (Feet): 5 Height (Inches): 6.00 Weight (Pounds): 122 General Appearance: WD/WN, alert EENT: PERRL/EOMI, normal ENT inspection Neck: non-tender, normal alignment, supple Cardiovascular: normal peripheral pulses, normal rate, regular rhythm Respiratory/Chest: chest wall non-tender, lungs clear, normal breath sounds, no respiratory distress Abdomen: normal bowel sounds, non tender, soft, no organomegaly Edema: no edema noted Arm (L), no edema noted Arm (R), no edema noted Leg (L), no edema noted Leg (R), no edema noted Pedal (L), no edema noted Pedal (R), no edema noted Generalized Edema: trace edema Objective General Appearance: WD/WN, alert, confused EENT: PERRL/EOMI, normal ENT inspection Neck: non-tender, normal alignment, supple Cardiovascular: normal peripheral pulses, normal rate Respiratory/Chest: chest wall non-tender, lungs clear, normal breath sounds Abdomen: normal bowel sounds, non tender, soft, no organomegaly, no mass Extremities: normal range of motion, non-tender Edema: no edema noted Arm (L), no edema noted Arm (R), no edema noted Leg (L), no edema noted Leg (R), no edema noted Pedal (L), no edema noted Pedal (R), no edema noted Generalized Neurologic: drapery and upholstery measurer II-XII grossly normal, no motor/sensory deficits, responsive Skin: normal pigmentation Lymphatic: normal anterior cervical (L), normal anterior cervical (R) Freddy Quevedo MD Oct 26, 2019 09:50
--- NOTE | 2019-10-26 11:10 | NUR ---
*-*DISCHARGE PLANNED*-* PATIENT HAS BEEN ACCEPTED AND WILL BE TRANSFERRED BACK TO: [facility] JOSE ENGLE P: [phone] FOR NURSE TO NURSE REPORT RM# 22.A [facility] TRANSPORTATION SET FOR 1PM S/W CECILIO [id number] S/W PATIENTS BROTHER SALIMA VASQUEZ, WHO IS IN AGREEMENT WITH DISCHARGE PLAN.
[2019-10-26 12:00] VITALS: BP 139/65
--- NOTE | 2019-10-26 12:00 | NUR ---
NURSE NOTES: Report given to Alka RODRIGUEZ at [facility].
--- NOTE | 2019-10-26 12:15 | Discharge Summary ---
DATE OF ADMISSION: 10/21/2019 DATE OF DISCHARGE: 10/25/2019 ADMISSION DIAGNOSES: 1. Altered mental status. 2. Azotemia. 3. Toxic metabolic encephalopathy. 4. Hypertension. 5. Psychosis and agitation. 6. CHF. DISCHARGE DIAGNOSES: 1. Altered mental status. 2. Azotemia. 3. Toxic metabolic encephalopathy. 4. Hypertension. 5. Psychosis and agitation. 6. CHF. HOSPITAL COURSE: Patient is an elderly female with a history of end-stage renal disease, who was transferred with complaints of confusion, shortness of breath, and altered mentation. She refused several sessions of dialysis. She was admitted. She was hemodialyzed. She was cooperative with care. She was initially poorly responsive, but as she was dialyzed, her mental status did improve. She did become somewhat agitated and uncooperative with care. Psychiatric consultation was obtained. The patient was anxiolytic and psychiatric medications were adjusted. On discharge, the patient was improved. She will be discharged back to senior care facility with close outpatient followup. DISCHARGE MEDICATIONS: Please see discharge medications list for discharge medications. DIET: Renal diet. ACTIVITIES: Ad-cristóbal. FOLLOW UP: Patient will be followed up in one to two days at the senior care facility. Freddy Quevedo M.D. DR: JAYANT JOB#: [id number] CC:
--- NOTE | 2019-10-26 14:00 | NUR ---
NURSE NOTES: Patient d/c via [facility]. Patient stable, VSS. Belongings list verified. No IV site, ID band removed.
--- NOTE | 2019-10-26 14:33 | Surgery Progress Note ---
Surgery Progress Note Subjective Additional Comments late entry seen earlier improved comfortable d/c plan for today discussed with team and recs for d/c given Objective Last 24 Hour Vital Signs Date Time Temp Pulse Resp B/P (MAP) Pulse Ox O2 Delivery O2 Flow Rate FiO2 10/26/19 12:00 97.8 87 18 139/65 (89) 98 10/26/19 09:00 Room Air 10/26/19 08:47 83 141/67 10/26/19 08:00 97.7 83 20 141/67 (91) 97 10/26/19 04:00 98.8 90 18 140/71 (94) 97 10/26/19 00:00 98.8 79 18 134/66 (88) 96 10/25/19 21:00 Room Air 10/25/19 20:00 98.5 72 18 136/68 (90) 95 10/25/19 16:00 98.2 81 17 131/79 (96) 96 I&O Intake and Output 10/25/19 10/26/19 18:59 06:59 Output Total 2000 ml Balance -2000 ml Output Hemodialysis UF 2000 ml # Voids 1 Dressing: other Wound: other Drains: other Cardiovascular: RSR Respiratory: decreased breath sounds Abdomen: soft, present bowel sounds Extremities: no cyanosis Plan Problems: (1) Deep tissue injury Assessment & Plan: Pt presented on admission with Sacral DTPI. Base of wound is indurated purple in colour with surrounding non-blanching erythema. Non-blanching erythema noted to R and L ischial tuberosities and posterior aspects of Upper R and L thighs. Tx.Plan: Apply Moisture Barrier Paste to Sacrum. Cover with Optifoam drsg. Change every 3 days and prn Apply Cavilon Skin BArrier to R and L trochanteric areas. Cover each site with Optifoam drsg.Change every 7 days and prn. \Apply Cavilon Skin Barrier to both heels.Cover each heel with Optifoam drsg. Change every 7 days and prn. Reposition at least every 2hours or as tolerated. Off-load heels with pillow. APM/MADALYN Mattress overlay. (2) Dementia (3) Hypertensive nephrosclerosis (4) Anemia in chronic kidney disease (5) CVA, old, cognitive deficits (6) Chronic renal failure (7) Missed dialysis (8) Weakness Assessment & Plan: Patient is felt fairly weak and since missing her dialysis has deteriorated currently pending dialysis. On admission deep tissue injury noted likely from patient's noncompliance laying in 1 position for too long and not wanting to move or go to dialysis. Furthermore patient confused currently pending psych eval. Weakness likely related to above and will assist in care plan to help ensure improvement if deterioration will be detrimental (9) ESRD (end stage renal disease) Jesse Quinn Oct 26, 2019 14:33
--- NOTE | 2019-10-26 19:59 | Nephrology Progress Note ---
Assessment/Plan Problem List: (1) ESRD (end stage renal disease) (2) Missed dialysis (3) Hypertensive nephrosclerosis (4) Anemia in chronic kidney disease (5) CVA, old, cognitive deficits Plan HD 10/24 encourage compliance, intermittent agitation, dc planned Subjective ROS Limited/Unobtainable: Yes Objective Objective Last 24 Hour Vital Signs Date Time Temp Pulse Resp B/P (MAP) Pulse Ox O2 Delivery O2 Flow Rate FiO2 10/26/19 12:00 97.8 87 18 139/65 (89) 98 10/26/19 09:00 Room Air 10/26/19 08:47 83 141/67 10/26/19 08:00 97.7 83 20 141/67 (91) 97 10/26/19 04:00 98.8 90 18 140/71 (94) 97 10/26/19 00:00 98.8 79 18 134/66 (88) 96 10/25/19 21:00 Room Air 10/25/19 20:00 98.5 72 18 136/68 (90) 95 Intake and Output 10/25/19 10/26/19 18:59 06:59 Output Total 2000 ml Balance -2000 ml Output Hemodialysis UF 2000 ml # Voids 1 Height (Feet): 5 Height (Inches): 6.00 Weight (Pounds): 122 General Appearance: lethargic, confused EENT: normal ENT inspection Neck: normal alignment Cardiovascular: regular rhythm Respiratory/Chest: lungs clear Extremities: no edema Neurologic: motor weakness, disoriented Dylon Stringer MD Oct 26, 2019 19:59
--- NOTE | 2019-10-26 22:45 | Psych Consult Progress Note ---
Psychiatry Progress Note Psychiatry Progress Note Neurological/Psychiatric: Reports: anxiety, depressed, emotional problems Allergies: Coded Allergies: No Known Allergies (Unverified , 02/27/19) Objective Data Height (Feet): 5 Height (Inches): 6.00 Weight (Pounds): 122 General Appearance: alert, confused, agitated Appearance: no abnormalities noted Behavior Mannerisms: poor eye contact Speech: clear Mental Status Exam - Thought P: disorganized Mental Status Exam - Suicidal: not present Assessment/Plan Status: stable Assessment/Plan: ASSESSMENT: [place] I Dementia, most likely vascular type. Major depressive disorder. Anxiety disorder. PLAN: 1. Lexapro 10 mg in the morning. 2. Risperidone 1 mg b.i.d. 3. Ativan p.r.n. 4. The patient lacks capacity to refuse any medications or care. Binh Baltazar MD Oct 26, 2019 22:45
--- NOTE | 2019-10-27 04:15 | Progress Note ---
DATE: 10/26/2019 CARDIOLOGY PROGRESS NOTE SUBJECTIVE: The patient is more compliant. She has completed hemodialysis with ultrafiltration with 2 liters removed yesterday. PHYSICAL EXAMINATION: VITAL SIGNS: Blood pressure 139/65, heart rate 87, respiratory rate 18, and afebrile. HEENT: Conjunctivae pink. Oropharynx clear. NECK: Supple. LUNGS: Clear. CARDIAC: Regular. Normal S1, S2 with a fourth heart sound. ABDOMEN: Soft. EXTREMITIES: No edema. NEUROLOGIC: Nonfocal. Moderate cognitive impairment and poor insight and judgment into medical condition. IMPRESSION: 1. Metabolic encephalopathy, improved. 2. Dementia with agitation persists, but is better controlled. 3. Hypertensive heart disease with controlled blood pressure. 4. Acute on chronic diastolic congestive heart failure, now clinically compensated. 5. End-stage renal disease, on hemodialysis. PLAN: Return to [facility] facility on current medication regimen. Discharge medication regimen reviewed and reconciled. Outpatient hemodialysis with ultrafiltration three times a week. Close monitoring of psychiatric parameters with medication titration as needed. This was all discussed with the primary care physician Dr. Quevedo. Bulmaro Hester M.D. DR: RADHAMES JOB#: [id number] CC: KAIA
== END 2019-10-26 13:55 | DRG 640 ==
LOC: EDBD 20:32 → EMR 21:31 → 4E 21:55 → OBSVTOIN 21:55 → EDBEDREQ 22:48
PROC: 5A1D70Z Performance of Urinary Filtration, Intermittent, Less than 6 Hours Per Day (ICD-10-PCS; principal; 2019-10-21)
DX: E87.79 Other fluid overload (principal); N18.6 End stage renal disease; G92 Toxic encephalopathy; I13.2 Hypertensive heart and chronic kidney disease with heart failure and with stage 5 chronic kidney disease, or end stage renal disease; L89.156 Pressure-induced deep tissue damage of sacral region; D63.1 Anemia in chronic kidney disease; I69.319 Unspecified symptoms and signs involving cognitive functions following cerebral infarction; Z99.2 Dependence on renal dialysis; F01.50 Vascular dementia, unspecified severity, without behavioral disturbance, psychotic disturbance, mood disturbance, and anxiety; Z91.15 Patient's noncompliance with renal dialysis; F29 Unspecified psychosis not due to a substance or known physiological condition; E11.22 Type 2 diabetes mellitus with diabetic chronic kidney disease; I50.9 Heart failure, unspecified
CPT/HCPCS: 36415; 71045; 80053; 83880; 85025; 85610; 85730; 86706; 87081; 93005; 93306; 99285

== ENCOUNTER 2019-11-24 19:15 | Inpatient (IN) | payer MEDICARE, OTHER ==
[~2019-11-24] VITALS: Ht 165.1 cm; Wt 52.7 kg
[~2019-11-24 19:15] MED LIST changes: +CATAPRES TTS-1 PATCH TDERMAL; +DEPAKOTE250 MG PO; +LEXAPRO10 MG ORAL; +LIPITOR80 MG ORAL; +NORVASC10 MG ORAL; +ZOFRAN4 M3 ORAL
--- NOTE | 2019-11-24 20:03 | Emergency Room Report ---
History of Present Illness General Chief Complaint: Generalized Weakness Present Illness HPI Patient is a 74-year-old female who was sent in from facility after increased generalized weakness. Patient had been less compliant with her medications and had been more somnolent. She had Risperdal held. Patient had previously been taking Depakote. Patient reportedly had not been eating for several days. Per staff patient was more weak all over. Allergies: Coded Allergies: No Known Allergies (Unverified , 02/27/19) COVID-19 Screening Contact w/high risk pt: Yes Recent Travel to affected area: No Experienced COVID-19 symptoms?: No COVID-19 Testing performed EDUCATIONAL INTERPRETER: No COVID-19 Screening: Negative COVID-19 COVID-19 Testing Source: negative x 3 days ago Patient History Past Medical History: see triage record Last Menstrual Period: n/a Reviewed Nursing Documentation: PMH: Agreed; PSxH: Agreed Nursing Documentation-PMH Hx Cardiac Problems: Yes Hx Hypertension: Yes Hx Diabetes: Yes Hx Cancer: No Hx Gastrointestinal Problems: No Hx Dialysis: Yes Hx Neurological Problems: Yes Hx Cerebrovascular Accident: Yes Hx Dementia: Yes Review of Systems All Other Systems: negative except mentioned in HPI Physical Exam Vital Signs Date Time Temp Pulse Resp B/P (MAP) Pulse Ox O2 Delivery O2 Flow Rate FiO2 11/24/19 19:16 97.2 108 12 102/60 (74) 97 Room Air Sp02 EP Interpretation: reviewed, normal General Appearance: normal inspection, well appearing, no apparent distress, alert, GCS 15, non-toxic Head: atraumatic ENT: normal ENT inspection, hearing grossly normal, normal voice Neck: normal inspection, supple, no bony tend, limited range of motion Respiratory: normal inspection, lungs clear, normal breath sounds, no respiratory distress, no retraction, no wheezing Cardiovascular #1: regular rate, rhythm, no edema Gastrointestinal: normal inspection, normal bowel sounds, non tender, soft, no guarding, no hernia Genitourinary: no CVA tenderness Musculoskeletal: back normal, other - Contraction bilateral lower extremity Neurologic: alert, responsive, speech normal, normal inspection Psychiatric: mood/affect normal Skin: other - Skin rash and ulcer Medical Decision Making Diagnostic Impression: Primary Impression: ESRD (end stage renal disease) Additional Impressions: CVA, old, cognitive deficits Weakness ER Course Patient presented for increased generalized weakness. Differential diagnosis include was not limited to dehydration, electrolyte abnormality, sepsis, coronavirus infection among others. Because of complexity of patient's case laboratory tests and imaging studies were ordered. Patient was noted to have a recent diminished appetite and had prior history of chronic kidney disease. She does not appear to have any significant alteration of her mental status although she appears to be generally weak. Patient was given IV Rocephin. Coronavirus testing was ordered due to patient's history of facility. But had no known recent positive test. Reportedly she had been off of medications. Dr. Bulmaro Hester was contacted for inpatient management for Dr. Quevedo. Labs Test 11/24/19 20:00 White Blood Count 19.0 K/UL (4.8-10.8) Red Blood Count 3.58 M/UL (4.20-5.40) Hemoglobin 10.5 G/DL (12.0-16.0) Hematocrit 32.1 % (37.0-47.0) Mean Corpuscular Volume 90 FL (80-99) Mean Corpuscular Hemoglobin 29.3 PG (27.0-31.0) Mean Corpuscular Hemoglobin Concent 32.7 G/DL (32.0-36.0) Red Cell Distribution Width 13.8 % (11.6-14.8) Platelet Count 272 K/UL (150-450) Mean Platelet Volume 6.1 FL (6.5-10.1) Neutrophils (%) (Auto) 89.1 % (45.0-75.0) Lymphocytes (%) (Auto) 2.5 % (20.0-45.0) Monocytes (%) (Auto) 8.2 % (1.0-10.0) Eosinophils (%) (Auto) 0.0 % (0.0-3.0) Basophils (%) (Auto) 0.3 % (0.0-2.0) Sodium Level 141 MMOL/L (136-145) Potassium Level 3.6 MMOL/L (3.5-5.1) Chloride Level 97 MMOL/L (98-107) Carbon Dioxide Level 33 MMOL/L (21-32) Anion Gap 11 mmol/L (5-15) Blood Urea Nitrogen 26 mg/dL (7-18) Creatinine 3.1 MG/DL (0.55-1.30) Estimat Glomerular Filtration Rate 17.9 mL/min (>60) Glucose Level 99 MG/DL (74-106) Lactic Acid Level 0.90 mmol/L (0.4-2.0) Calcium Level 9.1 MG/DL (8.5-10.1) Phosphorus Level 3.9 MG/DL (2.5-4.9) Magnesium Level 2.2 MG/DL (1.8-2.4) Total Bilirubin 0.7 MG/DL (0.2-1.0) Aspartate Amino Transf (AST/SGOT) 49 U/L (15-37) Alanine Aminotransferase (ALT/SGPT) 36 U/L (12-78) Alkaline Phosphatase 100 U/L (46-116) Total Creatine Kinase 327 U/L (26-308) Creatine Kinase MB 3.3 NG/ML (0.0-3.6) Creatine Kinase MB Relative Index 1.0 Troponin I 0.039 ng/mL (0.000-0.056) Pro-B-Type Natriuretic Peptide 3851 pg/mL (0-125) Total Protein 7.9 G/DL (6.4-8.2) Albumin 3.0 G/DL (3.4-5.0) Globulin 4.9 g/dL Albumin/Globulin Ratio 0.6 (1.0-2.7) Last Vital Signs Date Time Temp Pulse Resp B/P (MAP) Pulse Ox O2 Delivery O2 Flow Rate FiO2 11/24/19 19:54 108 12 Room Air 11/24/19 19:16 97.2 102/60 (74) 97 Status: unchanged Disposition: ADMITTED INPATIENT Condition: Stable Lj Farmer MD Nov 24, 2019 20:03
[2019-11-24] MEDS ORDERED: ERGOCALCIFEROL1 GM MC (20:05)
[2019-11-24] MEDS ORDERED: ASPIR 8181 MG ORAL (20:05)
[2019-11-24] MEDS ORDERED: HEPARIN SO5000 UNIT2 SUBQ (20:05)
[2019-11-24] MEDS ORDERED: ACETAMINOPHEN325 M1 ORAL (20:05)
[2019-11-24] MEDS ORDERED: HYDRALAZINE HC100 MG ORAL (20:05)
[2019-11-24] MEDS ORDERED: NORCO 10-325 T1 EACH ORAL (20:05)
[2019-11-24] MEDS ORDERED: ZOFRAN4 MG ORAL (20:05)
[2019-11-24 20:26] VITALS: BP 121/51
[2019-11-24 20:39] LABS: HEMATOCRIT 32.1 % (37.0-47.0); HEMOGLOBIN 10.5 G/DL (12.0-16.0); MEAN CORPUSCULAR VOLUME 90 FL (80-99); PLATELET COUNT 272 K/UL (150-450); RED BLOOD COUNT 3.58 M/UL (4.20-5.40); RED CELL DISTRIBUTION WIDTH 13.8 % (11.6-14.8)
[2019-11-24 20:40] LABS: LYMPHOCYTES % (AUTO) 2.5 % (20.0-45.0); MONOCYTES % (AUTO) 8.2 % (1.0-10.0); NEUTROPHILS % (AUTO) 89.1 % (45.0-75.0)
[2019-11-24 20:41] LABS: BASOPHILS % (AUTO) 0.3 % (0.0-2.0)
[2019-11-24 20:42] LABS: ANION GAP 11 mmol/L (5-15); BLOOD UREA NITROGEN 26 mg/dL (7-18); CALCIUM 9.1 MG/DL (8.5-10.1); CARBON DIOXIDE 33 MMOL/L (21-32); CHLORIDE 97 MMOL/L (98-107); CREATININE 3.1 MG/DL (0.55-1.30); POTASSIUM 3.6 MMOL/L (3.5-5.1); SODIUM 141 MMOL/L (136-145)
[2019-11-24 20:57] LABS: ALANINE AMINOTRANSFERASE 36 U/L (12-78); ALBUMIN/GLOBULIN RATIO 0.6 (1.0-2.7); ALKALINE PHOSPHATASE 100 U/L (46-116); ASPARTATE AMINO TRANSFERASE 49 U/L (15-37); BILIRUBIN,TOTAL 0.7 MG/DL (0.2-1.0); CKMB 3.3 NG/ML (0.0-3.6); CREATINE KINASE 327 U/L (26-308); PHOSPHORUS 3.9 MG/DL (2.5-4.9)
[2019-11-24] MEDS ORDERED: cefTRIAXone 1 GM in NS 55 ML IVPB ONE (21:00)
--- NOTE | 2019-11-24 21:00 | Diagnostic Imaging Report ---
EXAM: XR Chest, 1 View CLINICAL HISTORY: SOB TECHNIQUE: Frontal view of the chest. COMPARISON: 10/19/2019 FINDINGS: Limitations: Mildly limited exam due to patient positioning as the head overlies the upper thorax. Lungs: Unremarkable. No consolidation. Pleural space: Unremarkable. No pneumothorax. Heart: Unremarkable. No cardiomegaly. Mediastinum: Unremarkable. Bones/joints: Unremarkable. IMPRESSION: Limited evaluation of the bilateral apices as above. Otherwise, no acute cardiopulmonary disease.
[2019-11-25] VITALS (8 sets, daily range): BP systolic 115–137; BP diastolic 53–70
[2019-11-25 05:01] LABS: HEMATOCRIT 30.7 % (37.0-47.0); MEAN CORPUSCULAR VOLUME 92 FL (80-99); PLATELET COUNT 228 K/UL (150-450); RED BLOOD COUNT 3.35 M/UL (4.20-5.40); RED CELL DISTRIBUTION WIDTH 13.1 % (11.6-14.8)
[2019-11-25 05:11] LABS: ANION GAP 11 mmol/L (5-15); BLOOD UREA NITROGEN 31 mg/dL (7-18); CALCIUM 7.9 MG/DL (8.5-10.1); CARBON DIOXIDE 30 MMOL/L (21-32); CHLORIDE 101 MMOL/L (98-107); CREATININE 3.4 MG/DL (0.55-1.30); POTASSIUM 3.3 MMOL/L (3.5-5.1); SODIUM 142 MMOL/L (136-145)
[2019-11-25 05:18] LABS: ALANINE AMINOTRANSFERASE 30 U/L (12-78); ALBUMIN 2.6 G/DL (3.4-5.0); ALBUMIN/GLOBULIN RATIO 0.6 (1.0-2.7); ALKALINE PHOSPHATASE 89 U/L (46-116); ASPARTATE AMINO TRANSFERASE 47 U/L (15-37); BILIRUBIN,TOTAL 0.5 MG/DL (0.2-1.0)
[2019-11-25] MEDS: Aspirin Baby 81mg ORAL SCH (11:20)
[2019-11-25] MEDS: Heparin 5000 units/ml inj SUBQ SCH ×2 (11:22→22:23)
[2019-11-25] MEDS ORDERED: Vancomycin 750mg/D5W 275ml IVPB ONE ×2 (12:00)
--- NOTE | 2019-11-25 12:45 | History and Physical Report ---
DATE OF ADMISSION: 11/24/2019 CHIEF COMPLAINT: Altered mental status and sepsis. HISTORY OF PRESENT ILLNESS: The patient is a 74-year-old female, who was transferred from a alf facility with complaints of lethargy and being poorly responsive. She is only awake and verbal, but she was somnolent, sleepy and difficult to arouse. She was transferred to the emergency room. On evaluation there, her chest x-ray was clear. Vital signs were stable. She had a leukocytosis of 19,000. The patient has been pancultured and started on antibiotics, is now admitted for further evaluation and care. PAST MEDICAL HISTORY: As above. She has a history of end-stage renal disease, history of dementia with psychosis and agitation, hypertension. PAST SURGICAL HISTORY: Includes a history of an AV fistula. CURRENT MEDICATIONS: Reconciled and reviewed. ALLERGIES: None. FAMILY HISTORY: None. SOCIAL HISTORY: There is no known history of tobacco, ethanol, or drugs. REVIEW OF SYSTEMS: From the patient is unobtainable as she is nonverbal. PHYSICAL EXAMINATION: VITAL SIGNS: Temperature 97, pulse 104, respirations 20, and blood pressure . GENERAL: The patient is an elderly female, somewhat somnolent, difficult to arouse. She does open her eyes, but does not follow commands. HEENT: Head is normocephalic, atraumatic. Pupils are equal, round, and reactive to light. Sclerae anicteric. Oropharynx clear. NECK: Supple. HEART: Regular rate and rhythm. LUNGS: Clear. ABDOMEN: Soft, nontender, nondistended. EXTREMITIES: Without clubbing, cyanosis, or edema. NEUROLOGIC: The patient is unable to comply with the neurologic exam. She does open her eyes, but does not follow commands. LABORATORY DATA: Sodium 141, BUN 26, creatinine is 3. Lactic acid was 0.9. AST 49, ALT was 36. CK 327. Natriuretic peptide was 3800. Chest x-ray is clear. White count was 19,000. ASSESSMENT: This is an elderly female admitted with complaints of altered mental status and leukocytosis, possibly secondary to sepsis, etiology of which is unclear. She has end-stage renal disease and hypertension. PLAN: IV antibiotics. Followup cultures. Check her urinalysis. ID, Cardiology, and Renal consultations will be obtained. The patient will be started on DVT and stress ulcer prophylaxis. We will hold off sedation. Freddy Quevedo M.D. DR: DONTRELL JOB#: [id number] CC:
[2019-11-25] MEDS: Piperacillin/Tazobactam 3.375 GM in NS 110 ML IVPB SCH (14:15)
--- NOTE | 2019-11-25 16:14 | Consultation ---
DATE OF CONSULTATION: 11/25/2019 NEPHROLOGY CONSULTATION CONSULTING PHYSICIAN: Dylon Stringer MD. REFERRING PHYSICIAN: Freddy Quevedo MD. REASON FOR CONSULTATION: End-stage renal disease. HISTORY OF PRESENT ILLNESS: The patient presents from the [facility] with altered mental status, has a history of end-stage renal disease, on dialysis, CVA with left-sided weakness, hypertension, dementia. Apparently, she has been eating and drinking very poorly over the last week, more lethargic, missing some of her medications. SOCIAL HISTORY: She is a resident of an [facility]. HABITS: She is a nondrinker and nonsmoker at this time. REVIEW OF SYSTEMS: The patient is unable. MEDICATIONS: From an [facility] list include acetaminophen, aspirin, atorvastatin, Depakote, ergocalciferol, Lexapro, subcutaneous heparin, hydralazine, [place], magnesium hydroxide, ondansetron, amlodipine, clonidine patch. PHYSICAL EXAMINATION: GENERAL: The patient is lying in bed, in the emergency room. She is awake, nods her head, but is really not speaking. VITAL SIGNS: Temperature 97, pulse 104, respirations 20, blood pressure 125/61. HEAD, EYES, EARS, NOSE, AND THROAT: Oral mucosa slightly dry. Sclerae are nonicteric. Ocular motions intact in all directions. NECK: No adenopathy. LUNGS: Clear. HEART: Regular rhythm. I hear no murmur. ABDOMEN: Soft without organomegaly or masses. EXTREMITIES: No edema. There is an AV fistula in the left upper arm. There is [id number] muscle wasting. NEUROLOGIC: She is alert, but nods replies, really not speaking. There is no left-sided weakness. PERTINENT LABORATORY DATA: Show white count of 19,000, hemoglobin of 10.5. Sodium 141, potassium 3.6, BUN 26, creatinine 3.1, calcium is 9.1 with an albumin of 3.0. CK 327. Troponin 0.039. BNP 3851. Urinalysis, not back. Chest x-ray, no active disease. IMPRESSION: 1. End-stage renal disease. 2. Altered mental status likely combined from infection with leukocytosis, prior CVA, history of taking psychotropic medicines for the psychiatric disorder. 3. Leukocytosis, etiology unclear. There is no obvious infection on dialysis access, but she could have occult infection. The COVID-19 screening test is negative. She could have occult intra-abdominal or UTI. PLAN: The patient will be cultured. Put on broad-spectrum antibiotics. Dialysis will be arranged. We will watch her for sepsis. Reassess for psychotropic medications and cardiovascular regimen. Noted elevated BNP likely from chronic CHF. Dylon Stringer M.D. DR: JASMYNE JOB#: [id number] CC:
[2019-11-25] MEDS: Atorvastatin 80mg tab ORAL SCH (22:21)
[2019-11-26] VITALS (7 sets, daily range): BP systolic 114–124; BP diastolic 55–59
--- NOTE | 2019-11-26 00:30 | Consultation ---
DATE OF CONSULTATION: 11/25/2019 INFECTIOUS DISEASE CONSULT CONSULTING PHYSICIAN: Jarrett Levy MD. PRIMARY ATTENDING PHYSICIAN: Freddy Quevedo MD. This consult is for coverage of Ovidio Wilson MD. REASON FOR CONSULT: Sepsis. HISTORY OF PRESENT ILLNESS: This is a 74-year-old female who is a care home resident, admitted yesterday with altered mental status, some movements, lethargy, and weakness. The patient was found to have leukocytosis of 19,000 and tachycardia. Her COVID test was negative three days before admission. PAST MEDICAL HISTORY: End-stage renal disease on hemodialysis, anemia, dementia, pressure ulcer, and hypertension. ALLERGIES: No known drug allergies. MEDICATIONS: Getting sodium chloride, heparin, atorvastatin, clonidine, Zosyn, got a dose of vancomycin, amlodipine, Lexapro, and Tylenol. SOCIAL HISTORY: [facility] resident. Single. No history of alcohol, tobacco abuse, or drugs. REVIEW OF SYSTEMS: Unobtainable. Nonverbal. PHYSICAL EXAMINATION: VITAL SIGNS: Temperature 97.5, pulse 100, blood pressure 122/59. GENERAL APPEARANCE: No acute distress. HEAD AND NECK: [place] conjunctivae. HEART: Tachycardic. LUNGS: Clear. ABDOMEN: Soft. EXTREMITIES: There is no edema. LABORATORY DATA: She had COVID -19 rapid test that was negative. Chest x-ray was limited, but otherwise no acute cardiopulmonary disease. Today, WBC 17, hemoglobin 10, hematocrit 30.7, and platelet is 128,000. Sodium 142, potassium 3.3, chloride 101, bicarbonate 30, BUN 31, creatinine 2.4, and glucose 90. IMPRESSION: Sepsis with leukocytosis and tachycardia. Source is not clear. Awaiting for cultures. She has dementia, end-stage renal disease on hemodialysis, anemia, and hypertension. RECOMMENDATION: Continue vancomycin and Zosyn. Follow up the cultures. At the end of my exam, I thank Dr. Quevedo for involving me in the care of this patient. Jarrett Levy M.D. DR: BURTON JOB#: [id number] CC:
[2019-11-26] MEDS: Piperacillin/Tazobactam 3.375 GM in NS 110 ML IVPB SCH ×2 (02:11→14:04)
--- NOTE | 2019-11-26 03:00 | Consultation ---
DATE OF CONSULTATION: 11/24/2019 CARDIOLOGY CONSULTATION CONSULTING PHYSICIAN: Bulmaro Hester M.D. REQUESTING PHYSICIAN: Freddy Quevedo M.D. REASON: Elevated natriuretic peptide essay, evaluate for congestive heart failure. HISTORY OF PRESENT ILLNESS: This elderly female, who resides at a long-term facility and has end-stage renal disease on hemodialysis, has been increasingly lethargic and poorly responsive, although awake and verbal. She has been increasingly sleepy and difficult to arouse. Some of her medications were discontinued, but she did not improve and was transferred to the emergency room for assessment. Several abnormal laboratory studies were noted and cardiovascular consultation has been requested on the basis of her natriuretic peptide assay. PAST MEDICAL HISTORY: Cerebrovascular disease, dementia, history of psychosis and agitation, hypertension, diastolic dysfunction, end-stage renal disease, AV fistula, anemia of chronic kidney disease, diabetic neuropathy, degenerative valve disease, pulmonary hypertension. ALLERGIES: None. MEDICATIONS: Reviewed and reconciled. FAMILY HISTORY: Noncontributory. SOCIAL HISTORY: No record of prior smoking, alcohol, or substance abuse. REVIEW OF SYSTEMS: Not obtainable from the patient. Records review is performed x20 minutes. Prior hospitalizations are reviewed. Data from those hospitalizations as outlined above. Of note, on 10/19/2019, a 2D echocardiogram revealed normal ejection fraction at that time with mild degenerative valve disease and mild pulmonary hypertension. PHYSICAL EXAMINATION: VITAL SIGNS: Blood pressure 102/60, pulse 108, respirations 12, afebrile, room air oxygen saturation 97%. HEENT: Temporal wasting. Dry mucous membranes. NECK: Supple. No jugular venous distention. LUNGS: Clear. CARDIAC: Regular rhythm and rate. Normal S1, S2 with a fourth heart sound. A 1/6 systolic murmur at lower left sternal border. ABDOMEN: Soft. EXTREMITIES: No edema. LABORATORY AND DIAGNOSTIC DATA: Labs, white count 19, hemoglobin 10.5. Sodium 141, potassium 3.6, bicarb 33, BUN 26, creatinine 3.1. Liver function normal. Troponin 0.039. Pro-natriuretic peptide 3851. Albumin 3.0. X-ray of the chest reveals no acute cardiopulmonary disease. Electrocardiogram is pending for review. IMPRESSION: 1. Toxic encephalopathy. 2. Probable sepsis. 3. Chronic diastolic congestive heart failure. 4. End-stage renal disease. 5. Possible metabolic encephalopathy. 6. Cerebrovascular disease with dementia and history of agitation, now with somnolence. PLAN: 1. Panculture. 2. Empiric antimicrobials. 3. Hemodialysis with ultrafiltration. 4. Hold all psychotropic therapy and sedation. 5. Titrate antihypertensive and anti-failure regimen based on clinical parameters. 6. Avoid clonidine and other drugs with potential for sedation. 7. DVT prophylaxis. 8. Review electrocardiogram. Bulmaro Hester M.D. DR: MOE JOB#: [id number] CC:
--- NOTE | 2019-11-26 03:30 | Progress Note ---
DATE: 11/25/2019 SUBJECTIVE: The patient was started on empiric antimicrobials. She remains weak, withdrawn, lethargic, but slightly more interactive today. No shortness of breath. OBJECTIVE: VITAL SIGNS: Blood pressure 122/59, pulse 100, respirations 21, afebrile. LUNGS: Diminished breath sounds. HEART: Regular rhythm, rate. Normal S1, S2. A 1/6 systolic murmur at apex. ABDOMEN: Soft. EXTREMITIES: No edema. LABORATORY DATA: White count down to 17, hemoglobin 10, sodium 142, potassium 3.3, bicarb 30, BUN 31, creatinine 3.4. Albumin 2.6. IMPRESSION: 1. Sepsis and leukocytosis improved. 2. Toxic encephalopathy. 3. Low range blood pressure in the setting of hypertensive heart disease. 4. Chronic diastolic congestive heart failure. 5. Sinus tachycardia. 6. End-stage renal disease on hemodialysis. 7. Anemia of chronic kidney disease. 8. History of pulmonary hypertension. PLAN: 1. Empiric antimicrobials. Await culture results. 2. Hold parameters for antihypertensives. 3. Hemodialysis with ultrafiltration based on volume status. 4. Hold all psychiatric medications at this time. Bulmaro Hester M.D. DR: CHRISTINA JOB#: [id number] CC:
[2019-11-26] MEDS: Aspirin Baby 81mg ORAL SCH (09:00)
[2019-11-26] MEDS: Heparin 5000 units/ml inj SUBQ SCH ×2 (09:00→21:20)
[2019-11-26] MEDS ORDERED: Heparin Sod 1000 units/ml 10ml IV SCH (09:00)
[2019-11-26 09:46] LABS: HEMATOCRIT 28.3 % (37.0-47.0); HEMOGLOBIN 8.9 G/DL (12.0-16.0); MEAN CORPUSCULAR VOLUME 92 FL (80-99); PLATELET COUNT 217 K/UL (150-450); RED BLOOD COUNT 3.07 M/UL (4.20-5.40); RED CELL DISTRIBUTION WIDTH 12.8 % (11.6-14.8); WHITE BLOOD COUNT 17.5 K/UL (4.8-10.8)
[2019-11-26 09:52] LABS: ANION GAP 10 mmol/L (5-15); BLOOD UREA NITROGEN 46 mg/dL (7-18); CALCIUM 8.6 MG/DL (8.5-10.1); CARBON DIOXIDE 32 MMOL/L (21-32); CHLORIDE 104 MMOL/L (98-107); CREATININE 5.4 MG/DL (0.55-1.30); POTASSIUM 3.2 MMOL/L (3.5-5.1); SODIUM 146 MMOL/L (136-145)
[2019-11-26 09:59] LABS: ALANINE AMINOTRANSFERASE 29 U/L (12-78); ALBUMIN 2.2 G/DL (3.4-5.0); ALBUMIN/GLOBULIN RATIO 0.5 (1.0-2.7); ALKALINE PHOSPHATASE 80 U/L (46-116); ASPARTATE AMINO TRANSFERASE 33 U/L (15-37); BILIRUBIN,TOTAL 0.5 MG/DL (0.2-1.0); PHOSPHORUS 4.2 MG/DL (2.5-4.9)
--- NOTE | 2019-11-26 11:30 | Infectious Diseases Prog Note ---
Assessment/Plan Assessment/Plan antibiotics : vancomycin iv, zosyn A 1. leucocytosis improving 2. COVID 19 negative 3. renal failure 4. hypertension 5. dementia P 1. continue iv vancomycin, zosyn 2. will follow up cultures Subjective ROS Limited/Unobtainable: Yes Allergies: Coded Allergies: No Known Allergies (Unverified , 02/27/19) Objective Last 24 Hour Vital Signs Date Time Temp Pulse Resp B/P (MAP) Pulse Ox O2 Delivery O2 Flow Rate FiO2 11/26/19 09:00 Room Air 11/26/19 09:00 109 114/58 11/26/19 08:00 100.6 109 18 114/58 (76) 95 11/26/19 04:00 98.0 113 20 124/56 (78) 95 11/26/19 00:00 98.3 110 21 120/55 (76) 95 11/25/19 21:00 Room Air 11/25/19 20:00 98.8 107 21 115/61 (79) 96 11/25/19 16:00 98.1 98 20 117/57 (77) 96 11/25/19 14:16 122/59 11/25/19 12:00 97.5 100 21 122/59 (80) 97 Height (Feet): 5 Height (Inches): 7.00 Weight (Pounds): 130 Respiratory/Chest: lungs clear Cardiovascular: normal rate, regular rhythm, no gallop/murmur Abdomen: soft, non tender Extremities: no edema Microbiology Date/Time Source Procedure Growth Status 11/24/19 20:10 Blood Blood Culture - Preliminary NO GROWTH AFTER 24 HOURS Resulted 11/24/19 20:00 Blood Blood Culture - Preliminary NO GROWTH AFTER 24 HOURS Resulted 11/24/19 22:35 Nasopharynx SARS-CoV-2 RdRp Gene Assay - Final Complete Laboratory Tests Test 11/26/19 09:05 White Blood Count 17.5 K/UL (4.8-10.8) H Red Blood Count 3.07 M/UL (4.20-5.40) L Hemoglobin 8.9 G/DL (12.0-16.0) L Hematocrit 28.3 % (37.0-47.0) L Mean Corpuscular Volume 92 FL (80-99) Mean Corpuscular Hemoglobin 28.9 PG (27.0-31.0) Mean Corpuscular Hemoglobin Concent 31.3 G/DL (32.0-36.0) L Red Cell Distribution Width 12.8 % (11.6-14.8) Platelet Count 217 K/UL (150-450) Mean Platelet Volume 6.0 FL (6.5-10.1) L Neutrophils (%) (Auto) % (45.0-75.0) Lymphocytes (%) (Auto) % (20.0-45.0) Monocytes (%) (Auto) % (1.0-10.0) Eosinophils (%) (Auto) % (0.0-3.0) Basophils (%) (Auto) % (0.0-2.0) Differential Total Cells Counted 100 Neutrophils % (Manual) 89 % (45-75) H Lymphocytes % (Manual) 10 % (20-45) L Monocytes % (Manual) 1 % (1-10) Eosinophils % (Manual) 0 % (0-3) Basophils % (Manual) 0 % (0-2) Band Neutrophils 0 % (0-8) Platelet Estimate Adequate Platelet Morphology Normal Hypochromasia 1+ Sodium Level 146 MMOL/L (136-145) H Potassium Level 3.2 MMOL/L (3.5-5.1) L Chloride Level 104 MMOL/L (98-107) Carbon Dioxide Level 32 MMOL/L (21-32) Anion Gap 10 mmol/L (5-15) Blood Urea Nitrogen 46 mg/dL (7-18) H Creatinine 5.4 MG/DL (0.55-1.30) #H Estimat Glomerular Filtration Rate 9.5 mL/min (>60) Glucose Level 96 MG/DL (74-106) Calcium Level 8.6 MG/DL (8.5-10.1) Phosphorus Level 4.2 MG/DL (2.5-4.9) Total Bilirubin 0.5 MG/DL (0.2-1.0) Aspartate Amino Transf (AST/SGOT) 33 U/L (15-37) Alanine Aminotransferase (ALT/SGPT) 29 U/L (12-78) Alkaline Phosphatase 80 U/L (46-116) Total Protein 6.6 G/DL (6.4-8.2) Albumin 2.2 G/DL (3.4-5.0) L Globulin 4.4 g/dL Albumin/Globulin Ratio 0.5 (1.0-2.7) L Hepatitis B Surface Antigen Pending Current Medications Medications (Trade) Dose Ordered Sig/Jeanne Route PRN Reason Start Time Stop Time Status Last Admin Dose Admin Acetaminophen (Tylenol) 650 mg Q4H PRN ORAL For Pain 11/25/19 08:00 12/25/19 07:59 11/25/19 11:20 Amlodipine Besylate (Norvasc) 10 mg DAILY ORAL 11/25/19 09:00 12/25/19 08:59 11/25/19 11:20 Aspirin (ASA) 81 mg DAILY ORAL 11/25/19 09:00 01/09/20 08:59 11/25/19 11:20 Atorvastatin Calcium (Lipitor) 80 mg BEDTIME ORAL 11/25/19 21:00 02/23/20 20:59 11/25/19 22:21 Clonidine HCl (Catapres TTS-1) 1 patch QWEEK TDERMAL 11/25/19 14:00 02/23/20 13:59 11/25/19 14:16 Escitalopram Oxalate (Lexapro) 10 mg DAILY ORAL 11/25/19 09:00 12/25/19 08:59 11/26/19 09:09 Heparin Sodium (Porcine) (Heparin 5000 units/ml) 5,000 units EVERY 12 HOURS SUBQ 11/25/19 10:30 01/09/20 10:29 11/25/19 22:23 Heparin Sodium (Porcine) (Heparin Sod 1000 units/ml 10ml) 500 unit ONCE IV 11/26/19 09:00 11/26/19 23:59 Piperacillin Sod/ Tazobactam Sod 3.375 gm/Sodium Chloride 110 ml @ 27.5 mls/hr Q12H IVPB 11/25/19 14:00 12/02/19 13:59 11/26/19 02:11 Sodium Chloride 1,000 ml @ 500 mls/hr Q2H PRN IVLG sbp<90 during hd 11/26/19 09:00 12/26/19 08:59 Vancomycin HCl (Vanco pharmacy to dose) 1 ea DAILY PRN MISC Per rx protocol 11/25/19 08:00 12/25/19 07:59 Ovidio Wilson MD Nov 26, 2019 11:30
--- NOTE | 2019-11-26 13:57 | Consultation ---
History of Present Illness General Date patient seen: Nov 26, 2019 Chief Complaint: Generalized Weakness Present Illness HPI This is a 74-year-old female multi medical committees who is a assisted resident that presented to [facility] for evaluation of generalized weakness fatigue failure to thrive. Patient identified to have leukocytosis abnormal labs renal insufficiency admitted further care and management. Surgery called to evaluate and assist with care. Patient seen, patient evaluated, chart reviewed. Patient very somnolent and unresponsive. Does not seem to be in acute distress. Unable to participate in examination. Eyes are open she is alert Allergies: Coded Allergies: No Known Allergies (Unverified , 02/27/19) Medication History Scheduled Amlodipine Besylate (Norvasc), 10 MG ORAL DAILY Amlodipine Besylate* (Amlodipine Besylate*), 10 MG ORAL DAILY, (Reported) Aspirin* (Aspirin*), 81 MG ORAL DAILY Aspirin* (Aspir 81*), 81 MG ORAL DAILY, (Reported) Atorvastatin (Lipitor), 80 MG ORAL BEDTIME Clonidine (Catapres-Tts 1), 1 PATCH TDERMAL QWEEK Escitalopram Oxalate* (Lexapro*), 10 MG ORAL DAILY Heparin Sod (Porcine) (Heparin Sodium*), 5,000 UNITS SUBQ EVERY 12 HOURS, ( Reported) Hydralazine Hcl* (Hydralazine Hcl*), 100 MG ORAL EVERY 8 HOURS, (Reported) Risperidone* (Risperdal*), 1 MG ORAL BID Risperidone* (Risperdal*), 1 MG ORAL BID Scheduled PRN Acetaminophen* (Acetaminophen 325MG Tablet*), 650 MG ORAL Q4H PRN for For Pain, (Reported) Hydrocodone Bit/Acetaminophen 10-325* ([place] 10-325*), 1 TAB ORAL Q4H PRN for For Pain, (Reported) Ondansetron (Zofran), 8 MG ORAL Q8H PRN for Nausea & Vomiting, (Reported) Miscellaneous Medications Ergocalciferol (Vitamin D2) (Ergocalciferol), 1 GM MC, (Reported) Patient History Limited by: medical condition History Provided By: Medical Record, PMD Healthcare decision maker Resuscitation status Advanced Directive on File Past Medical/Surgical History Past Medical/Surgical History: (1) Dementia (2) Hypertensive nephrosclerosis (3) Anemia in chronic kidney disease (4) Deep tissue injury (5) ESRD (end stage renal disease) (6) CVA, old, cognitive deficits (7) Weakness Review of Systems ROS Narrative 74-year-old female unfortunately awake but unable to participate in examination or give history review of systems Physical Exam General Appearance: no apparent distress Lines, tubes and drains: peripheral HEENT: mucous membranes moist Neck: normal inspection Respiratory/Chest: no respiratory distress, no accessory muscle use, decreased breath sounds Cardiovascular/Chest: regular rhythm Abdomen: soft, no organomegaly, no mass Extremities: non-tender, normal inspection, no calf tenderness, other Skin Exam: warm/dry Neurologic: alert Last 24 Hour Vital Signs Date Time Temp Pulse Resp B/P (MAP) Pulse Ox O2 Delivery O2 Flow Rate FiO2 11/26/19 12:00 99.8 105 18 120/55 (76) 95 11/26/19 09:40 99.9 109 18 114/58 (76) 95 11/26/19 09:00 Room Air 11/26/19 09:00 109 114/58 11/26/19 08:00 100.6 109 18 114/58 (76) 95 11/26/19 04:00 98.0 113 20 124/56 (78) 95 11/26/19 00:00 98.3 110 21 120/55 (76) 95 11/25/19 21:00 Room Air 11/25/19 20:00 98.8 107 21 115/61 (79) 96 11/25/19 16:00 98.1 98 20 117/57 (77) 96 11/25/19 14:16 122/59 Intake and Output 11/25/19 11/26/19 19:00 07:00 Intake Total 480 ml 27.5 ml Balance 480 ml 27.5 ml Intake Oral 480 ml IV Total 27.5 ml Laboratory Tests Test 11/26/19 09:05 White Blood Count 17.5 K/UL (4.8-10.8) H Red Blood Count 3.07 M/UL (4.20-5.40) L Hemoglobin 8.9 G/DL (12.0-16.0) L Hematocrit 28.3 % (37.0-47.0) L Mean Corpuscular Volume 92 FL (80-99) Mean Corpuscular Hemoglobin 28.9 PG (27.0-31.0) Mean Corpuscular Hemoglobin Concent 31.3 G/DL (32.0-36.0) L Red Cell Distribution Width 12.8 % (11.6-14.8) Platelet Count 217 K/UL (150-450) Mean Platelet Volume 6.0 FL (6.5-10.1) L Neutrophils (%) (Auto) % (45.0-75.0) Lymphocytes (%) (Auto) % (20.0-45.0) Monocytes (%) (Auto) % (1.0-10.0) Eosinophils (%) (Auto) % (0.0-3.0) Basophils (%) (Auto) % (0.0-2.0) Differential Total Cells Counted 100 Neutrophils % (Manual) 89 % (45-75) H Lymphocytes % (Manual) 10 % (20-45) L Monocytes % (Manual) 1 % (1-10) Eosinophils % (Manual) 0 % (0-3) Basophils % (Manual) 0 % (0-2) Band Neutrophils 0 % (0-8) Platelet Estimate Adequate Platelet Morphology Normal Hypochromasia 1+ Sodium Level 146 MMOL/L (136-145) H Potassium Level 3.2 MMOL/L (3.5-5.1) L Chloride Level 104 MMOL/L (98-107) Carbon Dioxide Level 32 MMOL/L (21-32) Anion Gap 10 mmol/L (5-15) Blood Urea Nitrogen 46 mg/dL (7-18) H Creatinine 5.4 MG/DL (0.55-1.30) #H Estimat Glomerular Filtration Rate 9.5 mL/min (>60) Glucose Level 96 MG/DL (74-106) Calcium Level 8.6 MG/DL (8.5-10.1) Phosphorus Level 4.2 MG/DL (2.5-4.9) Total Bilirubin 0.5 MG/DL (0.2-1.0) Aspartate Amino Transf (AST/SGOT) 33 U/L (15-37) Alanine Aminotransferase (ALT/SGPT) 29 U/L (12-78) Alkaline Phosphatase 80 U/L (46-116) Total Protein 6.6 G/DL (6.4-8.2) Albumin 2.2 G/DL (3.4-5.0) L Globulin 4.4 g/dL Albumin/Globulin Ratio 0.5 (1.0-2.7) L Hepatitis B Surface Antigen Pending Height (Feet): 5 Height (Inches): 7.00 Weight (Pounds): 130 Medications Current Medications Medications (Trade) Dose Ordered Sig/Jeanne Route PRN Reason Start Time Stop Time Status Last Admin Dose Admin Acetaminophen (Tylenol) 650 mg Q4H PRN ORAL For Pain 11/25/19 08:00 12/25/19 07:59 11/25/19 11:20 Amlodipine Besylate (Norvasc) 10 mg DAILY ORAL 11/25/19 09:00 12/25/19 08:59 11/25/19 11:20 Aspirin (ASA) 81 mg DAILY ORAL 11/25/19 09:00 01/09/20 08:59 11/25/19 11:20 Atorvastatin Calcium (Lipitor) 80 mg BEDTIME ORAL 11/25/19 21:00 02/23/20 20:59 11/25/19 22:21 Clonidine HCl (Catapres TTS-1) 1 patch QWEEK TDERMAL 11/25/19 14:00 02/23/20 13:59 11/25/19 14:16 Escitalopram Oxalate (Lexapro) 10 mg DAILY ORAL 11/25/19 09:00 12/25/19 08:59 11/26/19 09:09 Heparin Sodium (Porcine) (Heparin 5000 units/ml) 5,000 units EVERY 12 HOURS SUBQ 11/25/19 10:30 01/09/20 10:29 11/25/19 22:23 Heparin Sodium (Porcine) (Heparin Sod 1000 units/ml 10ml) 500 unit ONCE IV 11/26/19 09:00 11/26/19 23:59 Piperacillin Sod/ Tazobactam Sod 3.375 gm/Sodium Chloride 110 ml @ 27.5 mls/hr Q12H IVPB 11/25/19 14:00 12/02/19 13:59 11/26/19 02:11 Sodium Chloride 1,000 ml @ 500 mls/hr Q2H PRN IVLG sbp<90 during hd 11/26/19 09:00 12/26/19 08:59 Vancomycin HCl (Vanco pharmacy to dose) 1 ea DAILY PRN MISC Per rx protocol 11/25/19 08:00 12/25/19 07:59 Assessment/Plan Problem List: (1) ESRD (end stage renal disease) ICD Codes: N18.6 - End stage renal disease SNOMED: 16746183 (2) CVA, old, cognitive deficits ICD Codes: I69.319 - Unspecified symptoms and signs involving cognitive functions following cerebral infarction SNOMED: 81456204, 983345314, 153809302, 725610645 (3) Dementia ICD Codes: F03.90 - Unspecified dementia without behavioral disturbance SNOMED: 57403752 (4) Weakness ICD Codes: R53.1 - Weakness SNOMED: 41717776 (5) Hypertensive nephrosclerosis ICD Codes: I12.9 - Hypertensive chronic kidney disease with stage 1 through stage 4 chronic kidney disease, or unspecified chronic kidney disease SNOMED: 305523261 (6) Anemia in chronic kidney disease ICD Codes: N18.9 - Chronic kidney disease, unspecified; D63.1 - Anemia in chronic kidney disease SNOMED: 559801181 (7) Deep tissue injury Assessment & Plan: Patient has a unstageable large sacral decubitus ulcer that seemingly infected soft foul-smelling malodorous odorous discharge identified on palpation. Given her current condition and these findings I spoke with the brother medical teams and have received consent for excisional debridement of sacral decubitus ulcer possible ostectomy bone biopsy. We will schedule accordingly. Care plan initiated. Will follow with recommendations thank you Nutritional optimization DAILY ESTIMATED NEEDS: Needs based on Renal, HD, wound, 44.1kg 30-40 kcals/kg [id number] total kcals 1.25-2 g protein/kg 55-88 g total protein Fluid per MD, on HD NUTRITION DIAGNOSIS: Increased kcal/prot intake needs R/T renal dysfunction, underweight status, wound healing as evidenced by ESRD dx, on HD, pt is 72% of [place] Body Weight admitted w/ sacral open wound. CURRENT DIET:RENAL PO DIET RECOMMENDATIONS: RENAL/ texture as tolerated or per PRODUCTION SORTER ADDITIONAL RECOMMENDATIONS: * Recalibrate bed scale -> Bed scale currently reads 165 lbs (Last HD 11/24/19 wt per SNF 44.1kg/97 lbs ) * Nepro 1 tetra penny TID w/ meals: 425kcal/19g prot per penny * Consider PRODUCTION SORTER eval for appropriate texture: h/o CVA * Wound healing: Add SIS BID (f/up w/ WC eval) * Snacks in b/w meals as tolerated * 1:1 feeds * Consult for non oral feeds if not alert for oral po intake ICD Codes: T14.8XXA - Other injury of unspecified body region, initial encounter SNOMED: 188068445 (8) Leukocytosis Assessment & Plan: 74F leukocytosis, abnormal labs, failure to thrive, malnutrition, DTI patient needs nutritional optimization she has a foul smelling sacral DTI that is large and would benefit from debridement will discuss with medical teams for consideration and family for consent thank you ICD Codes: D72.829 - Elevated white blood cell count, unspecified SNOMED: 995739173, [id number] Jesse Quinn Nov 26, 2019 13:57
--- NOTE | 2019-11-26 14:01 | Pre-Procedure Note/Attestation ---
Pre-Procedure Note/Attestation Complete Prior to Procedure Procedure Narrative: Excisional debridement of sacral decubitus ulcer Indications for Procedure Pre-Operative Diagnosis: Unstageable infected sacral decubitus ulcer Attestation I attest that I discussed the nature of the procedure; its benefits; risks and complications; and alternatives (and the risks and benefits of such alternatives ), prior to the procedure, with the patient (or the patient's legal containers sales representative). I attest that, if there was a reasonable possibility of needing a blood transfusion, the patient (or the patient's legal containers sales representative) was given the [facility] standardized written summary, pursuant to the [place] Blood Safety Act ([place] Health and Safety Code # 1645, as amended). I attest that I re-evaluated the patient just prior to the surgery and that there has been no change in the patient's H&P, except as documented below: Jesse Quinn Nov 26, 2019 14:01
--- NOTE | 2019-11-26 15:07 | Nephrology Progress Note ---
Assessment/Plan Problem List: (1) ESRD (end stage renal disease) (2) CVA, old, cognitive deficits (3) Dementia (4) Weakness (5) Hypertensive nephrosclerosis (6) Anemia in chronic kidney disease (7) Deep tissue injury (8) Leukocytosis Plan fevers, possible sepsis likely from decubitus, debridement scheduled , HD 11/25 continue antibiotics Subjective ROS Limited/Unobtainable: Yes Objective Objective Last 24 Hour Vital Signs Date Time Temp Pulse Resp B/P (MAP) Pulse Ox O2 Delivery O2 Flow Rate FiO2 11/26/19 12:00 99.8 105 18 120/55 (76) 95 11/26/19 09:40 99.9 109 18 114/58 (76) 95 11/26/19 09:00 Room Air 11/26/19 09:00 109 114/58 11/26/19 08:00 100.6 109 18 114/58 (76) 95 11/26/19 04:00 98.0 113 20 124/56 (78) 95 11/26/19 00:00 98.3 110 21 120/55 (76) 95 11/25/19 21:00 Room Air 11/25/19 20:00 98.8 107 21 115/61 (79) 96 11/25/19 16:00 98.1 98 20 117/57 (77) 96 Intake and Output 11/25/19 11/26/19 19:00 07:00 Intake Total 480 ml 27.5 ml Balance 480 ml 27.5 ml Intake Oral 480 ml IV Total 27.5 ml Laboratory Tests 11/26/19 09:05: White Blood Count 17.5H, Red Blood Count 3.07L, Hemoglobin 8.9L, Hematocrit 28.3L, Mean Corpuscular Volume 92, Mean Corpuscular Hemoglobin 28.9, Mean Corpuscular Hemoglobin Concent 31.3L, Red Cell Distribution Width 12.8, Platelet Count 217, Mean Platelet Volume 6.0L, Neutrophils (%) (Auto) , Lymphocytes (%) (Auto) , Monocytes (%) (Auto) , Eosinophils (%) (Auto) , Basophils (%) (Auto) , Differential Total Cells Counted 100, Neutrophils % ( Manual) 89H, Lymphocytes % (Manual) 10L, Monocytes % (Manual) 1, Eosinophils % ( Manual) 0, Basophils % (Manual) 0, Band Neutrophils 0, Platelet Estimate Adequate, Platelet Morphology Normal, Hypochromasia 1+, Sodium Level 146H, Potassium Level 3.2L, Chloride Level 104, Carbon Dioxide Level 32, Anion Gap 10 , Blood Urea Nitrogen 46H, Creatinine 5.4#H, Estimat Glomerular Filtration Rate 9.5, Glucose Level 96, Calcium Level 8.6, Phosphorus Level 4.2, Total Bilirubin 0.5, Aspartate Amino Transf (AST/SGOT) 33, Alanine Aminotransferase (ALT/SGPT) 29, Alkaline Phosphatase 80, Total Protein 6.6, Albumin 2.2L, Globulin 4.4, Albumin/Globulin Ratio 0.5L, Hepatitis B Surface Antigen [Pending] Height (Feet): 5 Height (Inches): 7.00 Weight (Pounds): 130 General Appearance: lethargic, confused EENT: normal ENT inspection Neck: normal alignment Cardiovascular: normal rate Respiratory/Chest: lungs clear Abdomen: non tender, soft Extremities: no edema Neurologic: motor weakness, disoriented Objective large necrotic sacral decub Dylon Stringer MD Nov 26, 2019 15:07
--- NOTE | 2019-11-26 15:54 | General Progress Note ---
Assessment/Plan Problem List: (1) ESRD (end stage renal disease) ICD Codes: N18.6 - End stage renal disease SNOMED: 95814776 (2) CVA, old, cognitive deficits ICD Codes: I69.319 - Unspecified symptoms and signs involving cognitive functions following cerebral infarction SNOMED: 96204722, 963361979, 673618441, 348370819 (3) Dementia ICD Codes: F03.90 - Unspecified dementia without behavioral disturbance SNOMED: 55783037 (4) Leukocytosis ICD Codes: D72.829 - Elevated white blood cell count, unspecified SNOMED: 657066285, 683082449 (5) Deep tissue injury ICD Codes: T14.8XXA - Other injury of unspecified body region, initial encounter SNOMED: 273247865 (6) Anemia in chronic kidney disease ICD Codes: N18.9 - Chronic kidney disease, unspecified; D63.1 - Anemia in chronic kidney disease SNOMED: 261572924 Status: stable, not improved Assessment/Plan: iv abx per ID follow up cultures consider CT to r/o sacral osteo avoid sedation encourage po swallow eval HD per renal wound care ?possible debridement by surgery Subjective ROS Limited/Unobtainable: Yes Constitutional: Reports: malaise, weakness HEENT: Reports: no symptoms Cardiovascular: Reports: no symptoms Respiratory: Reports: no symptoms Gastrointestinal/Abdominal: Reports: difficulty swallowing, poor appetite, poor fluid intake Genitourinary: Reports: no symptoms Neurologic/Psychiatric: Reports: pre-existing deficit Endocrine: Reports: no symptoms Hematologic/Lymphatic: Reports: no symptoms Allergies: Coded Allergies: No Known Allergies (Unverified , 02/27/19) All Systems: reviewed and negative except above Subjective no events. remains withdrawn and mostly nonverbal. awake. poor po intake. WBC remains elevated. on iv abx. cards, renal, id, surgery appreciated. Objective Last 24 Hour Vital Signs Date Time Temp Pulse Resp B/P (MAP) Pulse Ox O2 Delivery O2 Flow Rate FiO2 11/26/19 12:00 99.8 105 18 120/55 (76) 95 11/26/19 09:40 99.9 109 18 114/58 (76) 95 11/26/19 09:00 Room Air 11/26/19 09:00 109 114/58 11/26/19 08:00 100.6 109 18 114/58 (76) 95 11/26/19 04:00 98.0 113 20 124/56 (78) 95 11/26/19 00:00 98.3 110 21 120/55 (76) 95 11/25/19 21:00 Room Air 11/25/19 20:00 98.8 107 21 115/61 (79) 96 11/25/19 16:00 98.1 98 20 117/57 (77) 96 Intake and Output 11/25/19 11/26/19 19:00 07:00 Intake Total 480 ml 27.5 ml Balance 480 ml 27.5 ml Intake Oral 480 ml IV Total 27.5 ml Laboratory Tests 11/26/19 09:05: White Blood Count 17.5H, Red Blood Count 3.07L, Hemoglobin 8.9L, Hematocrit 28.3L, Mean Corpuscular Volume 92, Mean Corpuscular Hemoglobin 28.9, Mean Corpuscular Hemoglobin Concent 31.3L, Red Cell Distribution Width 12.8, Platelet Count 217, Mean Platelet Volume 6.0L, Neutrophils (%) (Auto) , Lymphocytes (%) (Auto) , Monocytes (%) (Auto) , Eosinophils (%) (Auto) , Basophils (%) (Auto) , Differential Total Cells Counted 100, Neutrophils % ( Manual) 89H, Lymphocytes % (Manual) 10L, Monocytes % (Manual) 1, Eosinophils % ( Manual) 0, Basophils % (Manual) 0, Band Neutrophils 0, Platelet Estimate Adequate, Platelet Morphology Normal, Hypochromasia 1+, Sodium Level 146H, Potassium Level 3.2L, Chloride Level 104, Carbon Dioxide Level 32, Anion Gap 10 , Blood Urea Nitrogen 46H, Creatinine 5.4#H, Estimat Glomerular Filtration Rate 9.5, Glucose Level 96, Calcium Level 8.6, Phosphorus Level 4.2, Total Bilirubin 0.5, Aspartate Amino Transf (AST/SGOT) 33, Alanine Aminotransferase (ALT/SGPT) 29, Alkaline Phosphatase 80, Total Protein 6.6, Albumin 2.2L, Globulin 4.4, Albumin/Globulin Ratio 0.5L, Hepatitis B Surface Antigen [Pending] Height (Feet): 5 Height (Inches): 7.00 Weight (Pounds): 130 General Appearance: WD/WN, lethargic, confused EENT: PERRL/EOMI, normal ENT inspection Neck: non-tender, normal alignment, supple Cardiovascular: normal peripheral pulses, normal rate, regular rhythm Respiratory/Chest: chest wall non-tender, lungs clear, normal breath sounds, no respiratory distress, no accessory muscle use Abdomen: normal bowel sounds, non tender, soft, no organomegaly, no mass Extremities: normal range of motion, non-tender Edema: no edema noted Arm (L), no edema noted Arm (R) Neurologic: responsive, disoriented Lymphatic: normal anterior cervical (L), normal anterior cervical (R) Freddy Quevedo MD Nov 26, 2019 15:54
[2019-11-26] MEDS ORDERED: VITAMIN D250 MCG PO (18:59)
[2019-11-26] MEDS ORDERED: MILK OF MA400 MG/51 ORAL (18:59)
[2019-11-26] MEDS ORDERED: ONDANSETRON HCL8 M1 PO (18:59)
[2019-11-26] MEDS: Piperacillin/Tazobactam 2.25 GM in NS 55 ML IV SCH (21:19)
[2019-11-26] MEDS: Atorvastatin 80mg tab ORAL SCH (21:19)
[2019-11-27] VITALS (20 sets, daily range): BP systolic 98–121; BP diastolic 49–69
--- NOTE | 2019-11-27 03:15 | Progress Note ---
DATE: 11/26/2019 SUBJECTIVE: The patient remains withdrawn, febrile, lethargic at times with rapid heart rate. PHYSICAL EXAMINATION: VITAL SIGNS: Blood pressure 120/55, heart rate 105, respirations 18, temperature max 100.6. SKIN: . LUNGS: Clear breath sounds. CARDIAC: Regular rhythm. Rapid rate. Normal S1, S2 with a fourth heart sound. ABDOMEN: Soft. EXTREMITIES: No edema. Dialysis graft site with palpable bruit. LABORATORY DATA: White count 17.5, hemoglobin 8.9, sodium 146, potassium 3.2, bicarb 32, BUN 46, creatinine 5.4, albumin 2.2. IMPRESSION: 1. Sepsis. 2. Decubitus cellulitis. 3. End-stage renal disease. 4. Dehydration. 5. Hyponatremia. 6. Chronic diastolic congestive heart failure. 7. Dementia with agitation. 8. Very low cholesterol parameters on high dose statin. PLAN: 1. Hemodialysis. 2. Antimicrobials. 3. Add beta-franck. 4. Lower statin dose. 5. Check CK. 6. Stable for debridement from cardiovascular standpoint. Bulmaro Hester M.D. DR: ANI JOB#: [id number] CC: [facility]
[2019-11-27] MEDS: Piperacillin/Tazobactam 2.25 GM in NS 55 ML IV SCH ×3 (05:07→21:09)
[2019-11-27 05:55] LABS: HEMATOCRIT 28.7 % (37.0-47.0); HEMOGLOBIN 8.9 G/DL (12.0-16.0); MEAN CORPUSCULAR VOLUME 93 FL (80-99); PLATELET COUNT 206 K/UL (150-450); RED BLOOD COUNT 3.08 M/UL (4.20-5.40); RED CELL DISTRIBUTION WIDTH 13.1 % (11.6-14.8); WHITE BLOOD COUNT 19.2 K/UL (4.8-10.8)
[2019-11-27 06:16] LABS: ANION GAP 11 mmol/L (5-15); BLOOD UREA NITROGEN 21 mg/dL (7-18); CALCIUM 9.3 MG/DL (8.5-10.1); CARBON DIOXIDE 26 MMOL/L (21-32); CHLORIDE 107 MMOL/L (98-107); CREATINE KINASE 286 U/L (26-308); CREATININE 3.3 MG/DL (0.55-1.30); POTASSIUM 3.5 MMOL/L (3.5-5.1); SODIUM 144 MMOL/L (136-145)
[2019-11-27 07:02] LABS: CHOLESTEROL 85 MG/DL (< 200); HDL CHOLESTEROL 42 MG/DL (40-60); TRIGLYCERIDES 76 MG/DL (30-150)
[2019-11-27] MEDS ORDERED: Vancomycin 1gm/D5W 275ml IVPB ONE ×2 (08:00)
[2019-11-27] MEDS: Aspirin Baby 81mg ORAL SCH (08:46)
[2019-11-27] MEDS: Heparin 5000 units/ml inj SUBQ SCH ×2 (08:47→21:09)
--- NOTE | 2019-11-27 10:38 | Infectious Diseases Prog Note ---
Assessment/Plan Assessment/Plan antibiotics : vancomycin iv, zosyn A 1. leucocytosis 2. COVID 19 negative 3. renal failure 4. hypertension 5. dementia 6. decubitus ulcers P 1. continue zosyn 2. d/c iv vancomycin 3. debridement pending 4. will follow up cultures Subjective ROS Limited/Unobtainable: Yes Allergies: Coded Allergies: No Known Allergies (Unverified , 02/27/19) Objective Last 24 Hour Vital Signs Date Time Temp Pulse Resp B/P (MAP) Pulse Ox O2 Delivery O2 Flow Rate FiO2 11/27/19 09:00 Room Air 11/27/19 08:46 93 115/56 11/27/19 08:46 93 115/56 11/27/19 08:00 98.8 93 20 115/56 (75) 95 11/27/19 04:00 97.7 97 22 113/59 (77) 97 11/27/19 00:00 97.9 95 22 121/61 (81) 95 11/26/19 23:33 103 117/59 11/26/19 21:00 Room Air 11/26/19 20:00 98.2 103 24 117/59 (78) 98 11/26/19 16:00 99.0 107 18 122/58 (79) 95 11/26/19 12:00 99.8 105 18 120/55 (76) 95 Height (Feet): 5 Height (Inches): 5.00 Weight (Pounds): 130 Respiratory/Chest: lungs clear Cardiovascular: normal rate, regular rhythm, no gallop/murmur Abdomen: soft, non tender Extremities: no edema Microbiology Date/Time Source Procedure Growth Status 11/24/19 20:10 Blood Blood Culture - Preliminary NO GROWTH AFTER 48 HOURS Resulted 11/24/19 20:00 Blood Blood Culture - Preliminary NO GROWTH AFTER 48 HOURS Resulted 11/25/19 03:50 Nasal Nares MRSA Culture - Final Staphylococcus Aureus - Mrsa Complete 11/24/19 22:35 Nasopharynx SARS-CoV-2 RdRp Gene Assay - Final Complete 11/25/19 03:50 Rectum - Final NO CARBAPENEM-RESISTANT ENTEROBACTERI... Complete 11/25/19 03:50 Rectum VRE Culture - Final Enterococcus Faecalis - Vre Complete Laboratory Tests Test 11/27/19 05:18 White Blood Count 19.2 K/UL (4.8-10.8) H Red Blood Count 3.08 M/UL (4.20-5.40) L Hemoglobin 8.9 G/DL (12.0-16.0) L Hematocrit 28.7 % (37.0-47.0) L Mean Corpuscular Volume 93 FL (80-99) Mean Corpuscular Hemoglobin 28.8 PG (27.0-31.0) Mean Corpuscular Hemoglobin Concent 31.0 G/DL (32.0-36.0) L Red Cell Distribution Width 13.1 % (11.6-14.8) Platelet Count 206 K/UL (150-450) Mean Platelet Volume 5.7 FL (6.5-10.1) L Neutrophils (%) (Auto) % (45.0-75.0) Lymphocytes (%) (Auto) % (20.0-45.0) Monocytes (%) (Auto) % (1.0-10.0) Eosinophils (%) (Auto) % (0.0-3.0) Basophils (%) (Auto) % (0.0-2.0) Differential Total Cells Counted 100 Neutrophils % (Manual) 90 % (45-75) H Lymphocytes % (Manual) 4 % (20-45) L Monocytes % (Manual) 6 % (1-10) Eosinophils % (Manual) 0 % (0-3) Basophils % (Manual) 0 % (0-2) Band Neutrophils 0 % (0-8) Platelet Estimate Adequate Platelet Morphology Normal Hypochromasia 1+ Sodium Level 144 MMOL/L (136-145) Potassium Level 3.5 MMOL/L (3.5-5.1) Chloride Level 107 MMOL/L (98-107) Carbon Dioxide Level 26 MMOL/L (21-32) Anion Gap 11 mmol/L (5-15) Blood Urea Nitrogen 21 mg/dL (7-18) H Creatinine 3.3 MG/DL (0.55-1.30) H Estimat Glomerular Filtration Rate 16.6 mL/min (>60) Glucose Level 106 MG/DL (74-106) Calcium Level 9.3 MG/DL (8.5-10.1) Total Creatine Kinase 286 U/L (26-308) Triglycerides Level 76 MG/DL (30-150) Cholesterol Level 85 MG/DL (< 200) LDL Cholesterol 26 mg/dL (<100) HDL Cholesterol 42 MG/DL (40-60) Cholesterol/HDL Ratio 2.0 (3.3-4.4) L Random Vancomycin Level 8.3 ug/mL Current Medications Medications (Trade) Dose Ordered Sig/Jeanne Route PRN Reason Start Time Stop Time Status Last Admin Dose Admin Acetaminophen (Tylenol) 650 mg Q4H PRN ORAL For Pain 11/25/19 08:00 12/25/19 07:59 11/25/19 11:20 Amlodipine Besylate (Norvasc) 10 mg DAILY ORAL 11/25/19 09:00 12/25/19 08:59 11/25/19 11:20 Aspirin (ASA) 81 mg DAILY ORAL 11/25/19 09:00 01/09/20 08:59 11/27/19 08:46 Atorvastatin Calcium (Lipitor) 80 mg BEDTIME ORAL 11/25/19 21:00 02/23/20 20:59 11/26/19 21:19 Clonidine HCl (Catapres Tab) 0.1 mg Q4H PRN ORAL SBP above 160 11/26/19 23:15 02/24/20 23:14 Escitalopram Oxalate (Lexapro) 10 mg DAILY ORAL 11/25/19 09:00 12/25/19 08:59 11/27/19 08:46 Heparin Sodium (Porcine) (Heparin 5000 units/ml) 5,000 units EVERY 12 HOURS SUBQ 11/25/19 10:30 01/09/20 10:29 11/26/19 21:20 Metoprolol Tartrate (Lopressor) 25 mg Q12HR ORAL 11/26/19 23:15 02/24/20 23:14 11/27/19 08:46 Piperacillin Sod/ Tazobactam Sod 2.25 gm/Sodium Chloride 55 ml @ 110 mls/hr Q8H IV 11/26/19 22:00 12/03/19 21:59 11/27/19 05:07 Sodium Chloride 1,000 ml @ 50 mls/hr Q20H IV 11/26/19 23:55 12/26/19 23:54 11/26/19 23:58 Sodium Chloride 1,000 ml @ 500 mls/hr Q2H PRN IVLG sbp<90 during hd 11/26/19 09:00 12/26/19 08:59 Vancomycin HCl ([facility] pharmacy to dose) 1 ea DAILY PRN MISC Per rx protocol 11/25/19 08:00 12/25/19 07:59 Ovidio Wilson MD Nov 27, 2019 10:38
[2019-11-27] MEDS ORDERED: Bacitracin Oint 15gm Tube TOPIC ONE (12:05)
[2019-11-27] MEDS ORDERED: Bacitracin 50000 Units Vial ONE (12:05)
[2019-11-27] MEDS ORDERED: Bupivacaine w/Epi 0.5% 30ml Vial INJ ONE (12:06)
[2019-11-27] MEDS ORDERED: Ketamine 500mg/10ml vial ONE (12:17)
[2019-11-27] MEDS ORDERED: NS Irrig 1000ml ONE (12:30)
[2019-11-27] MEDS ORDERED: ePHEDrine 50mg/ml Inj ONE (12:30)
[2019-11-27] MEDS ORDERED: Sterile Water Irrig 1000ml IRRIG ONE (12:30)
--- NOTE | 2019-11-27 12:36 | Nephrology Progress Note ---
Assessment/Plan Problem List: (1) ESRD (end stage renal disease) (2) CVA, old, cognitive deficits (3) Dementia (4) Weakness (5) Hypertensive nephrosclerosis (6) Anemia in chronic kidney disease (7) Deep tissue injury (8) Leukocytosis Plan fevers, possible sepsis likely from decubitus, debridement scheduled , HD 11/27, dc norvasc low bp, irbesartan with hold parameters continue antibiotics Subjective ROS Limited/Unobtainable: Yes Objective Objective Last 24 Hour Vital Signs Date Time Temp Pulse Resp B/P (MAP) Pulse Ox O2 Delivery O2 Flow Rate FiO2 11/27/19 09:00 Room Air 11/27/19 08:46 93 115/56 11/27/19 08:46 93 115/56 11/27/19 08:00 98.8 93 20 115/56 (75) 95 11/27/19 04:00 97.7 97 22 113/59 (77) 97 11/27/19 00:00 97.9 95 22 121/61 (81) 95 11/26/19 23:33 103 117/59 11/26/19 21:00 Room Air 11/26/19 20:00 98.2 103 24 117/59 (78) 98 11/26/19 16:00 99.0 107 18 122/58 (79) 95 Intake and Output 11/26/19 11/27/19 19:00 07:00 Intake Total 460 ml 150 ml Balance 460 ml 150 ml Intake Oral 460 ml IV Total 150 ml # Bowel Movements 1 Laboratory Tests 11/27/19 05:18: White Blood Count 19.2H, Red Blood Count 3.08L, Hemoglobin 8.9L, Hematocrit 28.7L, Mean Corpuscular Volume 93, Mean Corpuscular Hemoglobin 28.8, Mean Corpuscular Hemoglobin Concent 31.0L, Red Cell Distribution Width 13.1, Platelet Count 206, Mean Platelet Volume 5.7L, Neutrophils (%) (Auto) , Lymphocytes (%) (Auto) , Monocytes (%) (Auto) , Eosinophils (%) (Auto) , Basophils (%) (Auto) , Differential Total Cells Counted 100, Neutrophils % ( Manual) 90H, Lymphocytes % (Manual) 4L, Monocytes % (Manual) 6, Eosinophils % ( Manual) 0, Basophils % (Manual) 0, Band Neutrophils 0, Platelet Estimate Adequate, Platelet Morphology Normal, Hypochromasia 1+, Sodium Level 144, Potassium Level 3.5, Chloride Level 107, Carbon Dioxide Level 26, Anion Gap 11, Blood Urea Nitrogen 21H, Creatinine 3.3H, Estimat Glomerular Filtration Rate 16.6, Glucose Level 106, Calcium Level 9.3, Total Creatine Kinase 286, Triglycerides Level 76, Cholesterol Level 85, LDL Cholesterol 26, HDL Cholesterol 42, Cholesterol/HDL Ratio 2.0L, Random Vancomycin Level 8.3 Height (Feet): 5 Height (Inches): 5 Weight (Pounds): 130 General Appearance: lethargic, confused EENT: normal ENT inspection Neck: supple Cardiovascular: regular rhythm Respiratory/Chest: lungs clear Abdomen: non tender Extremities: no edema Neurologic: motor weakness, disoriented Objective large necrotic sacral decub Dylon Stringer MD Nov 27, 2019 12:36
[2019-11-27] MEDS ORDERED: NS Irrig 1000ml IRRIG ONE (12:58)
[2019-11-27] MEDS ORDERED: fentaNYL 100 mcg/2 mL IV ONE (13:02)
[2019-11-27] MEDS ORDERED: fentaNYL 100 mcg/2 mL IV PRN (13:30)
--- NOTE | 2019-11-27 13:36 | Anethesia Preoperative Eval ---
Anesthesia Pre-op PMH/ROS General Date of Evaluation: Nov 27, 2019 Time of Evaluation: 12:32 Anesthesiologist: Campbell ASA Score: ASA 4 Mallampati Score Class I : Soft palate, uvula, fauces, pillars visible Class II: Soft palate, uvula, fauces visible Class III: Soft palate, base of uvula visible Class IV: Only hard plate visible Mallampati Classification: Class II Surgeon: [place] Diagnosis: sepsis Surgical Procedure: Debridement of infected sacral wound Anesthesia History: none Family History: no anesthesia problems Allergies: Coded Allergies: No Known Allergies (Unverified , 02/27/19) Medications: see eMAR Patient NPO?: Yes NPO Date: Nov 27, 2019 Past Medical History Cardiovascular: Reports: HTN, CAD Pulmonary: Denies: asthma, COPD, JAYE, other Gastrointestinal/Genitourinary: Reports: ESRD; Denies: GERD, CRI, other Neurologic/Psychiatric: Reports: dementia, CVA; Denies: depression/anxiety, TIA, other Endocrine: Denies: DM, hypothyroidism, steroids, other HEENT: Denies: cataract (L), cataract (R), glaucoma, [place]I (L), [place] (R), other Hematology/Immune: Reports: anemia; Denies: DVT, bleeding disorder, other Musculoskeletal/Integumentary: Denies: OA, RA, DJD, DDD, edema, other PSxH Narrative: unknown Anesthesia Pre-op Phys. Exam Physician Exam Last Vital Signs Date Time Temp Pulse Resp B/P (MAP) Pulse Ox O2 Delivery O2 Flow Rate FiO2 11/27/19 09:00 Room Air 11/27/19 08:46 93 115/56 11/27/19 08:00 98.8 20 95 Constitutional: other - septic pt; HD 11/26/19; Neurologic: other - demented, non responsive, withdraws to pain Cardiovascular: RRR Respiratory: CTA Gastrointestinal: S/NT/ND Airway Exam Mallampati Score: Class III ROM: limited Teeth: missing Dentures: no upper, no lower Anesthesia Pre-op A/P Labs Hematology Test 11/27/19 05:18 White Blood Count 19.2 K/UL (4.8-10.8) H Red Blood Count 3.08 M/UL (4.20-5.40) L Hemoglobin 8.9 G/DL (12.0-16.0) L Hematocrit 28.7 % (37.0-47.0) L Mean Corpuscular Volume 93 FL (80-99) Mean Corpuscular Hemoglobin 28.8 PG (27.0-31.0) Mean Corpuscular Hemoglobin Concent 31.0 G/DL (32.0-36.0) L Red Cell Distribution Width 13.1 % (11.6-14.8) Platelet Count 206 K/UL (150-450) Mean Platelet Volume 5.7 FL (6.5-10.1) L Neutrophils (%) (Auto) % (45.0-75.0) Lymphocytes (%) (Auto) % (20.0-45.0) Monocytes (%) (Auto) % (1.0-10.0) Eosinophils (%) (Auto) % (0.0-3.0) Basophils (%) (Auto) % (0.0-2.0) Differential Total Cells Counted 100 Neutrophils % (Manual) 90 % (45-75) H Lymphocytes % (Manual) 4 % (20-45) L Monocytes % (Manual) 6 % (1-10) Eosinophils % (Manual) 0 % (0-3) Basophils % (Manual) 0 % (0-2) Band Neutrophils 0 % (0-8) Platelet Estimate Adequate Platelet Morphology Normal Hypochromasia 1+ Chemistry Test 11/27/19 05:18 Sodium Level 144 MMOL/L (136-145) Potassium Level 3.5 MMOL/L (3.5-5.1) Chloride Level 107 MMOL/L (98-107) Carbon Dioxide Level 26 MMOL/L (21-32) Anion Gap 11 mmol/L (5-15) Blood Urea Nitrogen 21 mg/dL (7-18) H Creatinine 3.3 MG/DL (0.55-1.30) H Estimat Glomerular Filtration Rate 16.6 mL/min (>60) Glucose Level 106 MG/DL (74-106) Calcium Level 9.3 MG/DL (8.5-10.1) Total Creatine Kinase 286 U/L (26-308) Triglycerides Level 76 MG/DL (30-150) Cholesterol Level 85 MG/DL (< 200) LDL Cholesterol 26 mg/dL (<100) HDL Cholesterol 42 MG/DL (40-60) Cholesterol/HDL Ratio 2.0 (3.3-4.4) L Studies Pre-op Studies: EKG - SR Risk Assessment & Plan Assessment: unchanged medical condition for 24 hours; spoke with POA for consent. Plan: General Status Change Before Surgery: No Pre-Antibiotics Drug: see chart Madie Hightower CRNA Nov 27, 2019 13:36
--- NOTE | 2019-11-27 13:37 | Immediate Post-Op Evaluation ---
Immediate Post-Op Evalulation Immediate Post-Op Evalulation Procedure: Debridement of sacral wound Date of Evaluation: Nov 27, 2019 Time of Evaluation: 13:37 IV Fluids: 300 Estimated Blood Loss: 2 Blood Pressure Systolic: 115 Blood Pressure Diastolic: 62 Pulse Rate: 75 Respiratory Rate: 14 O2 Sat by Pulse Oximetry: 98 Temperature (Fahrenheit): 97.5 Nausea: No Vomiting: No Patient Status: reacts Hydration Status: adequate Drug: see chart Given Within 1 Hr of Incision: Madie Fried CRNA Nov 27, 2019 13:37
--- NOTE | 2019-11-27 14:29 | Brief Operative Note ---
Immediate Post Operative Note Operative Note Pre-op Diagnosis: Unstageable infected sacral decubitus ulcer Procedure: Excisional debridement of sacral decubitus ulcer 10 cm x 8 cm x 4 cm deep down to bone with ostectomy Post-op Diagnosis: Stage IV sacral decubitus ulcer with infiltration of bone Surgeon: Preventive any MD Anesthesia: general Specimen: yes Complications: none Condition: stable Fluids: See records Estimated Blood Loss: minimal Drains: none Implant(s) used?: No Jesse Quinn Nov 27, 2019 14:29
[2019-11-27] MEDS ORDERED: Morphine Sulfate 2mg/ml Inj(IV/IM USE ONLY) IVP PRN ×2 (14:30)
[2019-11-27] MEDS ORDERED: Morphine Sulfate 4mg/ml Inj (IV USE ONLY) IVP PRN (14:30)
[2019-11-27] MEDS ORDERED: OLANZapine 2.5mg tab ORAL PRN (15:45)
[2019-11-27] MEDS ORDERED: LORazepam 1mg tab ORAL PRN (15:45)
--- NOTE | 2019-11-27 16:45 | General Progress Note ---
Assessment/Plan Problem List: (1) ESRD (end stage renal disease) ICD Codes: N18.6 - End stage renal disease SNOMED: 09549068 (2) CVA, old, cognitive deficits ICD Codes: I69.319 - Unspecified symptoms and signs involving cognitive functions following cerebral infarction SNOMED: 33199118, 050163623, 729179937, 715854267 (3) Dementia ICD Codes: F03.90 - Unspecified dementia without behavioral disturbance SNOMED: 77255913 (4) Leukocytosis ICD Codes: D72.829 - Elevated white blood cell count, unspecified SNOMED: 905239945, 172757403 (5) Deep tissue injury ICD Codes: T14.8XXA - Other injury of unspecified body region, initial encounter SNOMED: 009218358 (6) Anemia in chronic kidney disease ICD Codes: N18.9 - Chronic kidney disease, unspecified; D63.1 - Anemia in chronic kidney disease SNOMED: 478885066 Status: stable, not improved Assessment/Plan: iv abx per ID follow up cultures sacral wound debridement today avoid sedation encourage po swallow eval HD per renal wound care Subjective Time patient seen: 07:00 ROS Limited/Unobtainable: Yes Constitutional: Reports: malaise, weakness HEENT: Reports: no symptoms Cardiovascular: Reports: no symptoms Respiratory: Reports: no symptoms Gastrointestinal/Abdominal: Reports: poor appetite, poor fluid intake Genitourinary: Reports: no symptoms Neurologic/Psychiatric: Reports: depressed, pre-existing deficit Endocrine: Reports: no symptoms Hematologic/Lymphatic: Reports: no symptoms Allergies: Coded Allergies: No Known Allergies (Unverified , 02/27/19) All Systems: reviewed and negative except above Subjective no events. npo for debridement of sacral wound. remains mostly withdrawn. no fevers. poor po intake. has to be feed. on abx. labs reviewed Objective Last 24 Hour Vital Signs Date Time Temp Pulse Resp B/P (MAP) Pulse Ox O2 Delivery O2 Flow Rate FiO2 11/27/19 16:00 97.7 84 20 110/56 (74) 99 11/27/19 15:30 83 16 108/53 (71) 100 11/27/19 15:15 85 18 106/54 (71) 100 11/27/19 15:00 97.3 83 16 105/57 (73) 100 11/27/19 14:45 97.7 84 16 115/58 (77) 100 11/27/19 14:25 97.9 85 18 119/69 100 Nasal Cannula 3 11/27/19 14:05 83 15 115/65 100 Nasal Cannula 3 11/27/19 13:50 85 13 120/68 100 Simple Mask 6 11/27/19 13:40 86 15 117/65 100 Simple Mask 6 11/27/19 13:37 75 14 98 11/27/19 13:30 87 16 113/64 100 Simple Mask 6 11/27/19 13:26 87 16 99/55 100 Simple Mask 6 11/27/19 13:21 97.0 82 14 98/56 100 Simple Mask 6 11/27/19 09:00 Room Air 11/27/19 08:46 93 115/56 11/27/19 08:46 93 115/56 11/27/19 08:00 98.8 93 20 115/56 (75) 95 11/27/19 04:00 97.7 97 22 113/59 (77) 97 11/27/19 00:00 97.9 95 22 121/61 (81) 95 11/26/19 23:33 103 117/59 11/26/19 21:00 Room Air 11/26/19 20:00 98.2 103 24 117/59 (78) 98 Intake and Output 11/26/19 11/27/19 19:00 07:00 Intake Total 460 ml 150 ml Balance 460 ml 150 ml Intake Oral 460 ml IV Total 150 ml # Bowel Movements 1 Laboratory Tests 11/27/19 05:18: White Blood Count 19.2H, Red Blood Count 3.08L, Hemoglobin 8.9L, Hematocrit 28.7L, Mean Corpuscular Volume 93, Mean Corpuscular Hemoglobin 28.8, Mean Corpuscular Hemoglobin Concent 31.0L, Red Cell Distribution Width 13.1, Platelet Count 206, Mean Platelet Volume 5.7L, Neutrophils (%) (Auto) , Lymphocytes (%) (Auto) , Monocytes (%) (Auto) , Eosinophils (%) (Auto) , Basophils (%) (Auto) , Differential Total Cells Counted 100, Neutrophils % ( Manual) 90H, Lymphocytes % (Manual) 4L, Monocytes % (Manual) 6, Eosinophils % ( Manual) 0, Basophils % (Manual) 0, Band Neutrophils 0, Platelet Estimate Adequate, Platelet Morphology Normal, Hypochromasia 1+, Sodium Level 144, Potassium Level 3.5, Chloride Level 107, Carbon Dioxide Level 26, Anion Gap 11, Blood Urea Nitrogen 21H, Creatinine 3.3H, Estimat Glomerular Filtration Rate 16.6, Glucose Level 106, Calcium Level 9.3, Total Creatine Kinase 286, Triglycerides Level 76, Cholesterol Level 85, LDL Cholesterol 26, HDL Cholesterol 42, Cholesterol/HDL Ratio 2.0L, Random Vancomycin Level 8.3 Height (Feet): 5 Height (Inches): 5 Weight (Pounds): 130 General Appearance: WD/WN, alert, lethargic EENT: PERRL/EOMI, normal ENT inspection Neck: non-tender, normal alignment, supple Cardiovascular: normal peripheral pulses, normal rate Respiratory/Chest: chest wall non-tender, lungs clear, normal breath sounds, no respiratory distress Abdomen: normal bowel sounds, non tender, soft, no organomegaly Edema: no edema noted Arm (L), no edema noted Arm (R), no edema noted Leg (L), no edema noted Leg (R), no edema noted Pedal (L), no edema noted Pedal (R), no edema noted Generalized Neurologic: disoriented, aphasia Skin: normal pigmentation Lymphatic: normal anterior cervical (L), normal anterior cervical (R) Freddy Quevedo MD Nov 27, 2019 16:45
--- NOTE | 2019-11-27 17:59 | Operative Note - Dictated ---
DATE OF OPERATION: 11/27/2019 PREOPERATIVE DIAGNOSIS: Infected unstageable sacral decubitus ulcer . POSTOPERATIVE DIAGNOSIS: Stage IV sacral decubitus ulcer with spongy sacral bone involvement. OPERATION PERFORMED: 1. Excisional debridement of sacral decubitus ulcer 10 cm x 8 cm x 4 cm deep with plans for potential primary closure, flap closure in the future. 2. Ostectomy. ATTENDING SURGEON: Jesse Quinn MD AIRPLANE MECHANIC APPRENTICE: None. ANESTHESIOLOGIST: Madie Hightower CRNA ANESTHESIA: General GETA. ESTIMATED BLOOD LOSS: Minimal. IV FLUIDS: Please see anesthesia records. COMPLICATIONS: None. DRAINS: None. COUNTS: Sponge and needle count correct x2. WOUND CLASSIFICATION: Class 3. ANTIBIOTICS: The patient on scheduled IV antibiotics. SPECIMENS: 1. Nonviable sacral decubitus tissue. 2. Sacral bone ostectomy. INDICATIONS FOR PROCEDURE: This is a 74-year-old female who presented to [facility] for care management identified to have a foul smelling abnormal soft infected sacral unstageable decubitus ulcer. Discussion was had with medical teams and family in regards to care planning and goals of care. Decision was made to continue with full care in the patient's best interest. Given the above findings, excisional debridement was indicated and recommended with goals of localized care for the next few weeks and anticipated planned primary closure versus flap closure in the future. Consent was obtained from the patient's family member and patient was scheduled for 11/27/2019. OPERATIVE NOTE: The patient was taken to the operating room and placed on the operating table in supine position. The patient was made comfortable. General anesthesia was induced and the patient was intubated. The patient was placed in the right lateral decubitus position. The sacral area was prepped and draped in the standard surgical fashion. Using a fresh number 10 scalpel, the area of necrotic eschar at the dermis level was excised and the depth was taken down through the nonviable tissue to healthy viable tissue, which is approximately 4 cm deep. This was performed circumferentially with 1 cm stone noted in the right medial and lateral aspect. Wound went down to the sacral bone and coccyx and ostectomy was performed in areas of spongy bone down to the viable back bleeding. Electrocautery was used for hemostasis. The gluteus muscles were identified and fortunately not involved. All the subcutaneous tissue was abutted. The wound did extend towards the gluteus on the right and left. The wound bed was irrigated and cleansed. Packing dressings were applied. Local wound care plan was initiated for postop care. The patient tolerated procedure well and was taken to postanesthetic care unit in stable condition. Jesse Quinn M.D. DR: Maxime JOB#: [id number] CC:
[2019-11-27] MEDS ORDERED: Irbesartan 150mg tablet ORAL SCH (21:00)
[2019-11-27] MEDS: Atorvastatin 80mg tab ORAL SCH (21:08)
[2019-11-28] VITALS: BP 102/53
[2019-11-28 04:00] VITALS: BP 106/54
--- NOTE | 2019-11-28 04:44 | Progress Note ---
DATE: 11/27/2019 CARDIOLOGY PROGRESS NOTE SUBJECTIVE: The patient is status post debridement of wound, sacral wound today. No complications noted. She remains withdrawn, but arousable. Blood pressure parameters low normal range. OBJECTIVE: VITAL SIGNS: Blood pressure 110/56, pulse 84, respirations 20, no new fevers, oxygen saturations 99% on nasal cannula. LUNGS: Clear. CARDIAC: Regular. Normal S1, S2 with a fourth heart sound. ABDOMEN: Soft. EXTREMITIES: Trace edema. Wound site has dressing in place. LABORATORY DATA: White count remains elevated at 19, hemoglobin 8.9. Sodium 144, potassium 3.5, bicarb 26, BUN 21, creatinine 3.3. IMPRESSION: 1. Sacral decubitus infection. 2. Sepsis, leukocytosis. 3. End-stage renal disease. 4. Hypertensive heart disease with low range blood pressure. 5. Chronic diastolic congestive heart failure. 6. Toxic and metabolic encephalopathies. PLAN: 1. Antimicrobials. 2. Wound care. 3. Hemodialysis with ultrafiltration for volume management based on clinical parameters. 4. Follow up lipid panel. 5. Adjust statin dose accordingly. 6. Hold irbesartan at this time due to low range blood pressure reading. Bulmaro Hester M.D. DR: MOE JOB#: [id number] CC:
[2019-11-28] MEDS: Piperacillin/Tazobactam 2.25 GM in NS 55 ML IV SCH ×3 (05:29→22:05)
[2019-11-28 06:28] LABS: ANION GAP 13 mmol/L (5-15); BLOOD UREA NITROGEN 34 mg/dL (7-18); CARBON DIOXIDE 25 MMOL/L (21-32); CHLORIDE 106 MMOL/L (98-107); CREATININE 4.7 MG/DL (0.55-1.30); HEMATOCRIT 26.7 % (37.0-47.0); HEMOGLOBIN 8.4 G/DL (12.0-16.0); MEAN CORPUSCULAR VOLUME 93 FL (80-99); PLATELET COUNT 206 K/UL (150-450); POTASSIUM 3.8 MMOL/L (3.5-5.1); RED BLOOD COUNT 2.87 M/UL (4.20-5.40); RED CELL DISTRIBUTION WIDTH 13.3 % (11.6-14.8); SODIUM 144 MMOL/L (136-145); WHITE BLOOD COUNT 17.8 K/UL (4.8-10.8)
[2019-11-28 08:00] VITALS: BP 124/60
--- NOTE | 2019-11-28 08:19 | 48 Hour Post Anesthesia Eval ---
Post Anesthesia Evaluation Procedure: Debridement of sacral wound Date of Evaluation: Nov 28, 2019 Time of Evaluation: 08:18 Blood Pressure Systolic: 106 0: 54 Pulse Rate: 86 Respiratory Rate: 20 Temperature (Fahrenheit): 98.4 O2 Sat by Pulse Oximetry: 97 Airway: patent Nausea: No Vomiting: No Pain Intensity: 2 Hydration Status: adequate Cardiopulmonary Status: Stable Mental Status/LOC: patient returned to baseline Follow-up Care/Observations: 0 Post-Anesthesia Complications: 0 Follow-up care needed: N/A Ayo Villatoro MD Nov 28, 2019 08:19
[2019-11-28] MEDS: Aspirin Baby 81mg ORAL SCH (09:00)
[2019-11-28] MEDS: Heparin 5000 units/ml inj SUBQ SCH ×2 (09:00→20:56)
--- NOTE | 2019-11-28 09:14 | General Progress Note ---
Assessment/Plan Problem List: (1) ESRD (end stage renal disease) ICD Codes: N18.6 - End stage renal disease SNOMED: 00976007 (2) CVA, old, cognitive deficits ICD Codes: I69.319 - Unspecified symptoms and signs involving cognitive functions following cerebral infarction SNOMED: 33671955, 359211485, 898001521, 419656068 (3) Dementia ICD Codes: F03.90 - Unspecified dementia without behavioral disturbance SNOMED: 47129164 (4) Leukocytosis ICD Codes: D72.829 - Elevated white blood cell count, unspecified SNOMED: 537254928, 109408766 (5) Deep tissue injury ICD Codes: T14.8XXA - Other injury of unspecified body region, initial encounter SNOMED: 457687348 (6) Anemia in chronic kidney disease ICD Codes: N18.9 - Chronic kidney disease, unspecified; D63.1 - Anemia in chronic kidney disease SNOMED: 891090035 Status: stable, not improved Assessment/Plan: iv abx per ID follow up cultures wound care avoid sedation encourage po HD per renal psych rx Subjective ROS Limited/Unobtainable: Yes Constitutional: Reports: malaise, weakness HEENT: Reports: no symptoms Cardiovascular: Reports: no symptoms Respiratory: Reports: no symptoms Gastrointestinal/Abdominal: Reports: poor appetite, poor fluid intake Genitourinary: Reports: no symptoms Neurologic/Psychiatric: Reports: pre-existing deficit Endocrine: Reports: no symptoms Hematologic/Lymphatic: Reports: no symptoms Allergies: Coded Allergies: No Known Allergies (Unverified , 02/27/19) All Systems: reviewed and negative except above Subjective no events. remains mostly withdrawn. no fevers. poor po intake. has to be feed but is currently eating. on abx. labs reviewed Objective Last 24 Hour Vital Signs Date Time Temp Pulse Resp B/P (MAP) Pulse Ox O2 Delivery O2 Flow Rate FiO2 11/28/19 08:19 86 20 97 11/28/19 08:00 97.5 86 20 124/60 (81) 99 11/28/19 04:00 98.4 86 20 106/54 (71) 97 11/28/19 00:00 98.4 84 18 102/53 (69) 96 11/27/19 21:08 90 114/55 7/7/20 21:00 Room Air 11/27/19 21:00 114/55 11/27/19 20:00 98.6 90 22 114/55 (74) 96 11/27/19 16:59 84 18 106/49 (68) 98 11/27/19 16:00 97.7 84 20 110/56 (74) 99 11/27/19 15:30 83 16 108/53 (71) 100 11/27/19 15:15 85 18 106/54 (71) 100 11/27/19 15:00 97.3 83 16 105/57 (73) 100 11/27/19 14:45 97.7 84 16 115/58 (77) 100 11/27/19 14:25 97.9 85 18 119/69 100 Nasal Cannula 3 11/27/19 14:05 83 15 115/65 100 Nasal Cannula 3 11/27/19 13:50 85 13 120/68 100 Simple Mask 6 11/27/19 13:40 86 15 117/65 100 Simple Mask 6 11/27/19 13:37 75 14 98 11/27/19 13:30 87 16 113/64 100 Simple Mask 6 11/27/19 13:26 87 16 99/55 100 Simple Mask 6 11/27/19 13:21 97.0 82 14 98/56 100 Simple Mask 6 Intake and Output 11/27/19 11/28/19 19:00 07:00 Intake Total 680.000 ml 110 ml Output Total 1 ml Balance 679.000 ml 110 ml IV Total 680.000 ml 110 ml Estimated Blood Loss 1 ml # Bowel Movements 1 1 Laboratory Tests 11/28/19 05:25: White Blood Count 17.8H, Red Blood Count 2.87L, Hemoglobin 8.4L, Hematocrit 26.7L, Mean Corpuscular Volume 93, Mean Corpuscular Hemoglobin 29.2, Mean Corpuscular Hemoglobin Concent 31.3L, Red Cell Distribution Width 13.3, Platelet Count 206, Mean Platelet Volume 6.1L, Neutrophils (%) (Auto) , Lymphocytes (%) (Auto) , Monocytes (%) (Auto) , Eosinophils (%) (Auto) , Basophils (%) (Auto) , Neutrophils % (Manual) [Pending], Lymphocytes % (Manual) [Pending], Platelet Estimate [Pending], Platelet Morphology [Pending], Sodium Level 144, Potassium Level 3.8, Chloride Level 106, Carbon Dioxide Level 25, Anion Gap 13, Blood Urea Nitrogen 34H, Creatinine 4.7H, Estimat Glomerular Filtration Rate 11.0, Glucose Level 99, Calcium Level 8.0L Height (Feet): 5 Height (Inches): 5 Weight (Pounds): 116 Objective General Appearance: WD/WN, alert, lethargic EENT: PERRL/EOMI, normal ENT inspection Neck: non-tender, normal alignment, supple Cardiovascular: normal peripheral pulses, normal rate Respiratory/Chest: chest wall non-tender, lungs clear, normal breath sounds, no respiratory distress Abdomen: normal bowel sounds, non tender, soft, no organomegaly Edema: no edema noted Arm (L), no edema noted Arm (R), no edema noted Leg (L), no edema noted Leg (R), no edema noted Pedal (L), no edema noted Pedal (R), no edema noted Generalized Neurologic: disoriented, aphasia Skin: normal pigmentation Lymphatic: normal anterior cervical (L), normal anterior cervical (R) Freddy Quevedo MD Nov 28, 2019 09:14
--- NOTE | 2019-11-28 09:18 | Surgery Progress Note ---
Surgery Progress Note Subjective Procedure Performed Excisional debridement of sacral decubitus ulcer 10 cm x 8 cm x 4 cm deep down to bone with ostectomy Additional Comments doing well comfortable no n/v/f/c Objective Last 24 Hour Vital Signs Date Time Temp Pulse Resp B/P (MAP) Pulse Ox O2 Delivery O2 Flow Rate FiO2 11/28/19 08:19 86 20 97 11/28/19 08:00 97.5 86 20 124/60 (81) 99 11/28/19 04:00 98.4 86 20 106/54 (71) 97 11/28/19 00:00 98.4 84 18 102/53 (69) 96 11/27/19 21:08 90 114/55 11/27/19 21:00 Room Air 11/27/19 21:00 114/55 11/27/19 20:00 98.6 90 22 114/55 (74) 96 11/27/19 16:59 84 18 106/49 (68) 98 11/27/19 16:00 97.7 84 20 110/56 (74) 99 11/27/19 15:30 83 16 108/53 (71) 100 11/27/19 15:15 85 18 106/54 (71) 100 11/27/19 15:00 97.3 83 16 105/57 (73) 100 11/27/19 14:45 97.7 84 16 115/58 (77) 100 11/27/19 14:25 97.9 85 18 119/69 100 Nasal Cannula 3 11/27/19 14:05 83 15 115/65 100 Nasal Cannula 3 11/27/19 13:50 85 13 120/68 100 Simple Mask 6 11/27/19 13:40 86 15 117/65 100 Simple Mask 6 11/27/19 13:37 75 14 98 11/27/19 13:30 87 16 113/64 100 Simple Mask 6 11/27/19 13:26 87 16 99/55 100 Simple Mask 6 11/27/19 13:21 97.0 82 14 98/56 100 Simple Mask 6 I&O Intake and Output 11/27/19 11/28/19 19:00 07:00 Intake Total 680.000 ml 110 ml Output Total 1 ml Balance 679.000 ml 110 ml IV Total 680.000 ml 110 ml Estimated Blood Loss 1 ml # Bowel Movements 1 1 Dressing: saturated Wound: clean Cardiovascular: RSR Respiratory: clear Abdomen: soft, non-tender, present bowel sounds Extremities: no edema, no tenderness, no cyanosis Laboratory Tests Test 11/28/19 05:25 White Blood Count 17.8 K/UL (4.8-10.8) H Red Blood Count 2.87 M/UL (4.20-5.40) L Hemoglobin 8.4 G/DL (12.0-16.0) L Hematocrit 26.7 % (37.0-47.0) L Mean Corpuscular Volume 93 FL (80-99) Mean Corpuscular Hemoglobin 29.2 PG (27.0-31.0) Mean Corpuscular Hemoglobin Concent 31.3 G/DL (32.0-36.0) L Red Cell Distribution Width 13.3 % (11.6-14.8) Platelet Count 206 K/UL (150-450) Mean Platelet Volume 6.1 FL (6.5-10.1) L Neutrophils (%) (Auto) % (45.0-75.0) Lymphocytes (%) (Auto) % (20.0-45.0) Monocytes (%) (Auto) % (1.0-10.0) Eosinophils (%) (Auto) % (0.0-3.0) Basophils (%) (Auto) % (0.0-2.0) Neutrophils % (Manual) Pending Lymphocytes % (Manual) Pending Platelet Estimate Pending Platelet Morphology Pending Sodium Level 144 MMOL/L (136-145) Potassium Level 3.8 MMOL/L (3.5-5.1) Chloride Level 106 MMOL/L (98-107) Carbon Dioxide Level 25 MMOL/L (21-32) Anion Gap 13 mmol/L (5-15) Blood Urea Nitrogen 34 mg/dL (7-18) H Creatinine 4.7 MG/DL (0.55-1.30) H Estimat Glomerular Filtration Rate 11.0 mL/min (>60) Glucose Level 99 MG/DL (74-106) Calcium Level 8.0 MG/DL (8.5-10.1) L Assessment Post-op Diagnosis 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 Given her current condition and these findings I spoke with the brother medical teams and have received consent for excisional debridement of sacral decubitus ulcer possible ostectomy bone biopsy. We will schedule accordingly. Care plan initiated. Will follow with recommendations thank you Nutritional optimization DAILY ESTIMATED NEEDS: Needs based on Renal, HD, wound, 44.1kg 30-40 kcals/kg 3061-2980 total kcals 1.25-2 g protein/kg 55-88 g total protein Fluid per MD, on HD NUTRITION DIAGNOSIS: Increased kcal/prot intake needs R/T renal dysfunction, underweight status, wound healing as evidenced by ESRD dx, on HD, pt is 72% of [place] Body Weight admitted w/ sacral open wound. CURRENT DIET:RENAL PO DIET RECOMMENDATIONS: RENAL/ texture as tolerated or per SALES OFFICE ASSISTANT ADDITIONAL RECOMMENDATIONS: * Recalibrate bed scale -> Bed scale currently reads 165 lbs (Last HD 11/24/19 wt per SNF 44.1kg/97 lbs ) * Nepro 1 tetra penny TID w/ meals: 425kcal/19g prot per penny * Consider SALES OFFICE ASSISTANT eval for appropriate texture: h/o CVA * Wound healing: Add SIS BID (f/up w/ WC eval) * Snacks in b/w meals as tolerated * 1:1 feeds * Consult for non oral feeds if not alert for oral po intake (8) Leukocytosis Assessment & Plan: 74F leukocytosis, abnormal labs, failure to thrive, malnutrition, DTI patient needs nutritional optimization she has a foul smelling sacral DTI that is large and would benefit from debridement will discuss with medical teams for consideration and family for consent thank you Jesse Quinn Nov 28, 2019 09:18
--- NOTE | 2019-11-28 10:47 | Infectious Diseases Prog Note ---
Assessment/Plan Assessment/Plan antibiotics : zosyn A 1. leucocytosis improving 2. COVID 19 negative 3. renal failure 4. hypertension 5. dementia 6. decubitus ulcers P 1. continue zosyn 2. debridement pending 3. will follow up cultures Subjective ROS Limited/Unobtainable: Yes Allergies: Coded Allergies: No Known Allergies (Unverified , 02/27/19) Objective Last 24 Hour Vital Signs Date Time Temp Pulse Resp B/P (MAP) Pulse Ox O2 Delivery O2 Flow Rate FiO2 11/28/19 09:36 Room Air 11/28/19 08:19 86 20 97 11/28/19 08:00 97.5 86 20 124/60 (81) 99 11/28/19 04:00 98.4 86 20 106/54 (71) 97 11/28/19 00:00 98.4 84 18 102/53 (69) 96 11/27/19 21:08 90 114/55 11/27/19 21:00 Room Air 11/27/19 21:00 114/55 11/27/19 20:00 98.6 90 22 114/55 (74) 96 11/27/19 16:59 84 18 106/49 (68) 98 11/27/19 16:00 97.7 84 20 110/56 (74) 99 11/27/19 15:30 83 16 108/53 (71) 100 11/27/19 15:15 85 18 106/54 (71) 100 11/27/19 15:00 97.3 83 16 105/57 (73) 100 11/27/19 14:45 97.7 84 16 115/58 (77) 100 11/27/19 14:25 97.9 85 18 119/69 100 Nasal Cannula 3 11/27/19 14:05 83 15 115/65 100 Nasal Cannula 3 11/27/19 13:50 85 13 120/68 100 Simple Mask 6 11/27/19 13:40 86 15 117/65 100 Simple Mask 6 11/27/19 13:37 75 14 98 11/27/19 13:30 87 16 113/64 100 Simple Mask 6 11/27/19 13:26 87 16 99/55 100 Simple Mask 6 11/27/19 13:21 97.0 82 14 98/56 100 Simple Mask 6 Height (Feet): 5 Height (Inches): 5 Weight (Pounds): 116 Respiratory/Chest: lungs clear Cardiovascular: normal rate, regular rhythm, no gallop/murmur Abdomen: soft, non tender Extremities: no edema Microbiology Date/Time Source Procedure Growth Status 11/26/19 09:20 Blood Blood Culture - Preliminary NO GROWTH AFTER 24 HOURS Resulted 11/26/19 09:20 Blood Blood Culture - Preliminary NO GROWTH AFTER 24 HOURS Resulted Laboratory Tests Test 11/28/19 05:25 White Blood Count 17.8 K/UL (4.8-10.8) H Red Blood Count 2.87 M/UL (4.20-5.40) L Hemoglobin 8.4 G/DL (12.0-16.0) L Hematocrit 26.7 % (37.0-47.0) L Mean Corpuscular Volume 93 FL (80-99) Mean Corpuscular Hemoglobin 29.2 PG (27.0-31.0) Mean Corpuscular Hemoglobin Concent 31.3 G/DL (32.0-36.0) L Red Cell Distribution Width 13.3 % (11.6-14.8) Platelet Count 206 K/UL (150-450) Mean Platelet Volume 6.1 FL (6.5-10.1) L Neutrophils (%) (Auto) % (45.0-75.0) Lymphocytes (%) (Auto) % (20.0-45.0) Monocytes (%) (Auto) % (1.0-10.0) Eosinophils (%) (Auto) % (0.0-3.0) Basophils (%) (Auto) % (0.0-2.0) Neutrophils % (Manual) Pending Lymphocytes % (Manual) Pending Platelet Estimate Pending Platelet Morphology Pending Sodium Level 144 MMOL/L (136-145) Potassium Level 3.8 MMOL/L (3.5-5.1) Chloride Level 106 MMOL/L (98-107) Carbon Dioxide Level 25 MMOL/L (21-32) Anion Gap 13 mmol/L (5-15) Blood Urea Nitrogen 34 mg/dL (7-18) H Creatinine 4.7 MG/DL (0.55-1.30) H Estimat Glomerular Filtration Rate 11.0 mL/min (>60) Glucose Level 99 MG/DL (74-106) Calcium Level 8.0 MG/DL (8.5-10.1) L Current Medications Medications (Trade) Dose Ordered Sig/Jeanne Route PRN Reason Start Time Stop Time Status Last Admin Dose Admin Acetaminophen (Tylenol) 650 mg Q4H PRN ORAL For Pain 11/25/19 08:00 12/25/19 07:59 11/25/19 11:20 Ascorbic Acid (Vitamin C) 500 mg DAILY ORAL 11/28/19 11:30 12/28/19 11:29 Aspirin (ASA) 81 mg DAILY ORAL 11/25/19 09:00 01/09/20 08:59 11/27/19 08:46 Atorvastatin Calcium (Lipitor) 10 mg BEDTIME ORAL 11/28/19 21:00 02/26/20 20:59 Clonidine HCl (Catapres Tab) 0.1 mg Q4H PRN ORAL SBP above 160 11/26/19 23:15 02/24/20 23:14 Heparin Sodium (Porcine) (Heparin 5000 units/ml) 5,000 units EVERY 12 HOURS SUBQ 11/25/19 10:30 01/09/20 10:29 11/27/19 21:09 Heparin Sodium (Porcine) (Heparin Sod 1000 units/ml 10ml) 500 unit ONCE PRN IV FOR HD USE ONLY 11/28/19 12:45 11/28/19 23:59 Metoprolol Tartrate (Lopressor) 25 mg Q12HR ORAL 11/26/19 23:15 02/24/20 23:14 11/27/19 21:08 Morphine Sulfate (Morphine Sulfate) 1 mg Q4H PRN IVP pain scale 1-3 11/27/19 14:30 12/04/19 14:29 Morphine Sulfate (Morphine Sulfate) 2 mg Q4H PRN IVP pain scale 4-6 11/27/19 14:30 12/04/19 14:29 Morphine Sulfate (Morphine Sulfate) 4 mg Q4H PRN IVP pain score 7-10 11/27/19 14:30 12/04/19 14:29 Olanzapine (ZyPREXA) 2.5 mg Q6H PRN ORAL agitation 11/27/19 15:45 01/11/20 15:44 Piperacillin Sod/ Tazobactam Sod 2.25 gm/Sodium Chloride 55 ml @ 110 mls/hr Q8H IV 11/26/19 22:00 12/03/19 21:59 11/28/19 05:29 Sodium Chloride 1,000 ml @ 500 mls/hr Q2H PRN IVLG sbp<90 during hd 11/28/19 12:33 11/28/19 23:59 Vitamin B Complex/ Vit C/Folic Acid (Nephrovite) 1 tab DAILY ORAL 11/28/19 11:30 12/28/19 11:29 Zinc Sulfate (Zinc Sulfate) 220 mg DAILY ORAL 11/28/19 11:30 02/26/20 11:29 Ovidio Wilson MD Nov 28, 2019 10:47
--- NOTE | 2019-11-28 10:48 | Nephrology Progress Note ---
Assessment/Plan Problem List: (1) ESRD (end stage renal disease) (2) CVA, old, cognitive deficits (3) Dementia (4) Weakness (5) Hypertensive nephrosclerosis (6) Anemia in chronic kidney disease (7) Deep tissue injury (8) Leukocytosis Plan fevers, possible sepsis likely from decubitus, debridement scheduled , HD 11/27, dc norvasc low bp,continue antibiotics Subjective ROS Limited/Unobtainable: Yes Objective Objective Last 24 Hour Vital Signs Date Time Temp Pulse Resp B/P (MAP) Pulse Ox O2 Delivery O2 Flow Rate FiO2 11/28/19 09:36 Room Air 11/28/19 08:19 86 20 97 11/28/19 08:00 97.5 86 20 124/60 (81) 99 11/28/19 04:00 98.4 86 20 106/54 (71) 97 11/28/19 00:00 98.4 84 18 102/53 (69) 96 11/27/19 21:08 90 114/55 11/27/19 21:00 Room Air 11/27/19 21:00 114/55 11/27/19 20:00 98.6 90 22 114/55 (74) 96 11/27/19 16:59 84 18 106/49 (68) 98 11/27/19 16:00 97.7 84 20 110/56 (74) 99 11/27/19 15:30 83 16 108/53 (71) 100 11/27/19 15:15 85 18 106/54 (71) 100 11/27/19 15:00 97.3 83 16 105/57 (73) 100 11/27/19 14:45 97.7 84 16 115/58 (77) 100 11/27/19 14:25 97.9 85 18 119/69 100 Nasal Cannula 3 11/27/19 14:05 83 15 115/65 100 Nasal Cannula 3 11/27/19 13:50 85 13 120/68 100 Simple Mask 6 11/27/19 13:40 86 15 117/65 100 Simple Mask 6 11/27/19 13:37 75 14 98 11/27/19 13:30 87 16 113/64 100 Simple Mask 6 11/27/19 13:26 87 16 99/55 100 Simple Mask 6 11/27/19 13:21 97.0 82 14 98/56 100 Simple Mask 6 Intake and Output 11/27/19 11/28/19 19:00 07:00 Intake Total 680.000 ml 110 ml Output Total 1 ml Balance 679.000 ml 110 ml IV Total 680.000 ml 110 ml Estimated Blood Loss 1 ml # Bowel Movements 1 1 Laboratory Tests 11/28/19 05:25: White Blood Count 17.8H, Red Blood Count 2.87L, Hemoglobin 8.4L, Hematocrit 26.7L, Mean Corpuscular Volume 93, Mean Corpuscular Hemoglobin 29.2, Mean Corpuscular Hemoglobin Concent 31.3L, Red Cell Distribution Width 13.3, Platelet Count 206, Mean Platelet Volume 6.1L, Neutrophils (%) (Auto) , Lymphocytes (%) (Auto) , Monocytes (%) (Auto) , Eosinophils (%) (Auto) , Basophils (%) (Auto) , Neutrophils % (Manual) [Pending], Lymphocytes % (Manual) [Pending], Platelet Estimate [Pending], Platelet Morphology [Pending], Sodium Level 144, Potassium Level 3.8, Chloride Level 106, Carbon Dioxide Level 25, Anion Gap 13, Blood Urea Nitrogen 34H, Creatinine 4.7H, Estimat Glomerular Filtration Rate 11.0, Glucose Level 99, Calcium Level 8.0L Height (Feet): 5 Height (Inches): 5 Weight (Pounds): 116 General Appearance: no apparent distress, confused, thin EENT: normal ENT inspection Neck: normal alignment Cardiovascular: regular rhythm Respiratory/Chest: lungs clear Abdomen: non tender Extremities: no edema Neurologic: motor weakness Objective large necrotic sacral decub Dylon Stringer MD Nov 28, 2019 10:48
[2019-11-28 12:00] VITALS: BP 107/56
[2019-11-28] MEDS ORDERED: Heparin Sod 1000 units/ml 10ml IV PRN (12:45)
[2019-11-28 16:00] VITALS: BP 120/60
[2019-11-28] MEDS: Ascorbic Acid 500mg tab ORAL SCH (16:01)
[2019-11-28] MEDS: Zinc Sulfate 220mg ORAL SCH (16:01)
[2019-11-28] MEDS: Nephrovite tab (Rena-Vite) ORAL SCH (16:01)
[2019-11-28 20:00] VITALS: BP 126/58
--- NOTE | 2019-11-28 22:55 | Psych Consult Progress Note ---
Psychiatry Progress Note Psychiatry Progress Note Subjective waxing and waning o consciousness. at baseline pt agitated Medications Current Medications Medications (Trade) Dose Ordered Sig/Jeanne Route PRN Reason Start Time Stop Time Status Last Admin Dose Admin Acetaminophen (Tylenol) 650 mg Q4H PRN ORAL For Pain 11/25/19 08:00 12/25/19 07:59 11/25/19 11:20 Ascorbic Acid (Vitamin C) 500 mg DAILY ORAL 11/28/19 11:30 12/28/19 11:29 11/28/19 16:01 Aspirin (ASA) 81 mg DAILY ORAL 11/25/19 09:00 01/09/20 08:59 11/27/19 08:46 Atorvastatin Calcium (Lipitor) 10 mg BEDTIME ORAL 11/28/19 21:00 02/26/20 20:59 11/28/19 20:49 Clonidine HCl (Catapres Tab) 0.1 mg Q4H PRN ORAL SBP above 160 11/26/19 23:15 02/24/20 23:14 Heparin Sodium (Porcine) (Heparin 5000 units/ml) 5,000 units EVERY 12 HOURS SUBQ 11/25/19 10:30 01/09/20 10:29 11/28/19 20:56 Heparin Sodium (Porcine) (Heparin Sod 1000 units/ml 10ml) 500 unit ONCE PRN IV FOR HD USE ONLY 11/28/19 12:45 11/28/19 23:59 11/28/19 12:17 Metoprolol Tartrate (Lopressor) 25 mg Q12HR ORAL 11/26/19 23:15 02/24/20 23:14 11/27/19 21:08 Morphine Sulfate (Morphine Sulfate) 1 mg Q4H PRN IVP pain scale 1-3 11/27/19 14:30 12/04/19 14:29 Morphine Sulfate (Morphine Sulfate) 2 mg Q4H PRN IVP pain scale 4-6 11/27/19 14:30 12/04/19 14:29 Morphine Sulfate (Morphine Sulfate) 4 mg Q4H PRN IVP pain score 7-10 11/27/19 14:30 12/04/19 14:29 Olanzapine (ZyPREXA) 2.5 mg Q6H PRN ORAL agitation 11/27/19 15:45 01/11/20 15:44 Piperacillin Sod/ Tazobactam Sod 2.25 gm/Sodium Chloride 55 ml @ 110 mls/hr Q8H IV 11/26/19 22:00 12/03/19 21:59 11/28/19 22:05 Sodium Chloride 1,000 ml @ 500 mls/hr Q2H PRN IVLG sbp<90 during hd 11/28/19 12:33 11/28/19 23:59 Vitamin B Complex/ Vit C/Folic Acid (Nephrovite) 1 tab DAILY ORAL 11/28/19 11:30 12/28/19 11:29 11/28/19 16:01 Zinc Sulfate (Zinc Sulfate) 220 mg DAILY ORAL 11/28/19 11:30 02/26/20 11:29 11/28/19 16:01 Allergies: Coded Allergies: No Known Allergies (Unverified , 02/27/19) Objective Data Height (Feet): 5 Height (Inches): 5 Weight (Pounds): 116 General Appearance: no apparent distress, lethargic, confused Behavior Mannerisms: poor eye contact Mental Status Exam - Affect: flat Mental Status Exam - Thought P: confusion Mental Status Exam - Suicidal: not present Assessment/Plan Problem List: (1) acute toxic encephalopathy Status: stable, not improved Assessment/Plan: dc lexapro may benefit from low dose antipsychotics Binh Baltazar MD Nov 28, 2019 22:55
--- NOTE | 2019-11-28 23:59 | Progress Note ---
DATE: 11/28/2019 CARDIOLOGY PROGRESS NOTE SUBJECTIVE: The patient is status post wound debridement. She remains on hemodialysis with ultrafiltration. Blood pressure parameters continue to decrease and her antihypertensives have been discontinued. PHYSICAL EXAMINATION: VITAL SIGNS: Blood pressure 126/58, pulse 72, respirations 18, afebrile, oxygen saturation on room air is 97%. LUNGS: Clear. CARDIAC: Regular. Normal S1, S2 with a fourth heart sound. ABDOMEN: Soft. No edema. LABORATORY DATA: White count 17.8, hemoglobin 8.4. BUN 34, creatinine 4.7. IMPRESSION: 1. Sepsis. 2. Infected sacral decubitus. 3. Shock. 4. End-stage renal disease. 5. Cerebrovascular disease with dementia. PLAN: 1. Antimicrobials. 2. Skin care. 3. Continue to hold antihypertensives. We will administer on a p.r.n. basis. 4. Hemodialysis with ultrafiltration for volume management. Bulmaro Hester M.D. DR: Evie JOB#: [id number] CC:
[2019-11-29] VITALS: BP 125/54
[2019-11-29 04:00] VITALS: BP 132/56
[2019-11-29] MEDS: Piperacillin/Tazobactam 2.25 GM in NS 55 ML IV SCH ×3 (05:31→20:35)
[2019-11-29 08:00] VITALS: BP 118/59
[2019-11-29] MEDS: Aspirin Baby 81mg ORAL SCH (08:34)
[2019-11-29] MEDS: Ascorbic Acid 500mg tab ORAL SCH (08:34)
[2019-11-29] MEDS: Zinc Sulfate 220mg ORAL SCH (08:35)
[2019-11-29] MEDS: Nephrovite tab (Rena-Vite) ORAL SCH (08:35)
[2019-11-29] MEDS: Heparin 5000 units/ml inj SUBQ SCH ×2 (08:38→20:36)
--- NOTE | 2019-11-29 10:21 | General Progress Note ---
Assessment/Plan Problem List: (1) ESRD (end stage renal disease) ICD Codes: N18.6 - End stage renal disease SNOMED: 36710198 (2) CVA, old, cognitive deficits ICD Codes: I69.319 - Unspecified symptoms and signs involving cognitive functions following cerebral infarction SNOMED: 72997289, 673107485, 599629762, 721486846 (3) Dementia ICD Codes: F03.90 - Unspecified dementia without behavioral disturbance SNOMED: 60807404 (4) Leukocytosis ICD Codes: D72.829 - Elevated white blood cell count, unspecified SNOMED: 887308762, 546336207 (5) Deep tissue injury ICD Codes: T14.8XXA - Other injury of unspecified body region, initial encounter SNOMED: 237916551 (6) Anemia in chronic kidney disease ICD Codes: N18.9 - Chronic kidney disease, unspecified; D63.1 - Anemia in chronic kidney disease SNOMED: 588675827 Status: stable, not improved Assessment/Plan: iv abx per ID follow up cultures wound care avoid sedation encourage po HD per renal psych rx add meagce dc planning when cleared by surgery Subjective ROS Limited/Unobtainable: No Constitutional: Reports: malaise, weakness HEENT: Reports: no symptoms Cardiovascular: Reports: no symptoms Respiratory: Reports: no symptoms Gastrointestinal/Abdominal: Reports: poor appetite, poor fluid intake Neurologic/Psychiatric: Reports: anxiety, depressed Endocrine: Reports: no symptoms Hematologic/Lymphatic: Reports: no symptoms Allergies: Coded Allergies: No Known Allergies (Unverified , 02/27/19) All Systems: reviewed and negative except above Subjective no events. remains mostly withdrawn. no fevers. poor po intake. has to be feed but is currently eating. on abx. no new complaints. confused. on psych rx Objective Last 24 Hour Vital Signs Date Time Temp Pulse Resp B/P (MAP) Pulse Ox O2 Delivery O2 Flow Rate FiO2 11/29/19 09:00 Room Air 11/29/19 08:00 97.7 105 18 118/59 (78) 99 11/29/19 04:00 98.6 99 18 132/56 (81) 97 11/29/19 00:00 98.6 100 18 125/54 (77) 97 11/28/19 21:00 Room Air 11/28/19 20:57 72 126/58 11/28/19 20:00 98.9 92 20 126/58 (80) 97 11/28/19 16:00 97.9 98 20 120/60 (80) 99 11/28/19 12:00 97.7 84 20 107/56 (73) 97 Intake and Output 11/28/19 11/29/19 19:00 07:00 Intake Total 590 ml 110 ml Output Total 1000 ml Balance -410 ml 110 ml Intake Oral 480 ml IV Total 110 ml 110 ml Hemodialysis UF 1000 ml # Bowel Movements 2 1 Height (Feet): 5 Height (Inches): 5 Weight (Pounds): 116 Objective General Appearance: WD/WN, alert, lethargic EENT: PERRL/EOMI, normal ENT inspection Neck: non-tender, normal alignment, supple Cardiovascular: normal peripheral pulses, normal rate Respiratory/Chest: chest wall non-tender, lungs clear, normal breath sounds, no respiratory distress Abdomen: normal bowel sounds, non tender, soft, no organomegaly Edema: no edema noted Arm (L), no edema noted Arm (R), no edema noted Leg (L), no edema noted Leg (R), no edema noted Pedal (L), no edema noted Pedal (R), no edema noted Generalized Neurologic: disoriented, aphasia Skin: normal pigmentation Lymphatic: normal anterior cervical (L), normal anterior cervical (R) Freddy Quevedo MD Nov 29, 2019 10:21
[2019-11-29] MEDS: Megace 400mg/10ml Susp ORAL SCH ×2 (10:53→17:12)
--- NOTE | 2019-11-29 11:48 | Infectious Diseases Prog Note ---
Assessment/Plan Assessment/Plan A 1. leucocytosis improving 2. COVID 19 negative 3. renal failure 4. hypertension 5. dementia 6. 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 continue Zosyn 2. will follow up cultures Subjective ROS Limited/Unobtainable: Yes Constitutional: Denies: fever Allergies: Coded Allergies: No Known Allergies (Unverified , 02/27/19) Objective Last 24 Hour Vital Signs Date Time Temp Pulse Resp B/P (MAP) Pulse Ox O2 Delivery O2 Flow Rate FiO2 11/29/19 09:00 Room Air 11/29/19 08:00 97.7 105 18 118/59 (78) 99 11/29/19 04:00 98.6 99 18 132/56 (81) 97 11/29/19 00:00 98.6 100 18 125/54 (77) 97 11/28/19 21:00 Room Air 11/28/19 20:57 72 126/58 11/28/19 20:00 98.9 92 20 126/58 (80) 97 11/28/19 16:00 97.9 98 20 120/60 (80) 99 11/28/19 12:00 97.7 84 20 107/56 (73) 97 Height (Feet): 5 Height (Inches): 5 Weight (Pounds): 116 HEENT: mucous membranes moist Respiratory/Chest: lungs clear Cardiovascular: tachycardia Abdomen: soft, non tender Extremities: no edema Skin: ulcers Neurologic/Psychiatric: alert, responsive Current Medications Medications (Trade) Dose Ordered Sig/Jeanne Route PRN Reason Start Time Stop Time Status Last Admin Dose Admin Acetaminophen (Tylenol) 650 mg Q4H PRN ORAL For Pain 11/25/19 08:00 12/25/19 07:59 11/25/19 11:20 Ascorbic Acid (Vitamin C) 500 mg DAILY ORAL 11/28/19 11:30 12/28/19 11:29 11/29/19 08:34 Aspirin (ASA) 81 mg DAILY ORAL 11/25/19 09:00 01/09/20 08:59 11/29/19 08:34 Atorvastatin Calcium (Lipitor) 10 mg BEDTIME ORAL 11/28/19 21:00 02/26/20 20:59 Clonidine HCl (Catapres Tab) 0.1 mg Q4H PRN ORAL SBP above 160 11/26/19 23:15 02/24/20 23:14 Heparin Sodium (Porcine) (Heparin 5000 units/ml) 5,000 units EVERY 12 HOURS SUBQ 11/25/19 10:30 01/09/20 10:29 11/29/19 08:38 Megestrol Acetate (Megace) 400 mg TWICE A DAY ORAL 11/29/19 10:30 02/27/20 10:29 11/29/19 10:53 Metoprolol Tartrate (Lopressor) 25 mg Q12HR ORAL 11/26/19 23:15 02/24/20 23:14 11/27/19 21:08 Morphine Sulfate (Morphine Sulfate) 1 mg Q4H PRN IVP pain scale 1-3 11/27/19 14:30 12/04/19 14:29 Morphine Sulfate (Morphine Sulfate) 2 mg Q4H PRN IVP pain scale 4-6 11/27/19 14:30 12/04/19 14:29 Morphine Sulfate (Morphine Sulfate) 4 mg Q4H PRN IVP pain score 7-10 11/27/19 14:30 12/04/19 14:29 Olanzapine (ZyPREXA) 2.5 mg Q6H PRN ORAL agitation 11/27/19 15:45 01/11/20 15:44 Piperacillin Sod/ Tazobactam Sod 2.25 gm/Sodium Chloride 55 ml @ 110 mls/hr Q8H IV 11/26/19 22:00 12/03/19 21:59 11/29/19 05:31 Vitamin B Complex/ Vit C/Folic Acid (Nephrovite) 1 tab DAILY ORAL 11/28/19 11:30 12/28/19 11:29 11/29/19 08:35 Zinc Sulfate (Zinc Sulfate) 220 mg DAILY ORAL 11/28/19 11:30 02/26/20 11:29 11/29/19 08:35 Jarrett Levy MD Nov 29, 2019 11:48
[2019-11-29 12:00] VITALS: BP 120/69
--- NOTE | 2019-11-29 12:20 | Nephrology Progress Note ---
Assessment/Plan Problem List: (1) ESRD (end stage renal disease) (2) CVA, old, cognitive deficits (3) Dementia (4) Weakness (5) Hypertensive nephrosclerosis (6) Anemia in chronic kidney disease (7) Deep tissue injury (8) Leukocytosis Plan fevers, possible sepsis likely from decubitus, debridement done , HD 11/29 dc norvasc low bp,continue antibiotics Subjective ROS Limited/Unobtainable: Yes Objective Objective Last 24 Hour Vital Signs Date Time Temp Pulse Resp B/P (MAP) Pulse Ox O2 Delivery O2 Flow Rate FiO2 11/29/19 09:00 Room Air 11/29/19 08:00 97.7 105 18 118/59 (78) 99 11/29/19 04:00 98.6 99 18 132/56 (81) 97 11/29/19 00:00 98.6 100 18 125/54 (77) 97 11/28/19 21:00 Room Air 11/28/19 20:57 72 126/58 11/28/19 20:00 98.9 92 20 126/58 (80) 97 11/28/19 16:00 97.9 98 20 120/60 (80) 99 Intake and Output 11/28/19 11/29/19 19:00 07:00 Intake Total 590 ml 110 ml Output Total 1000 ml Balance -410 ml 110 ml Intake Oral 480 ml IV Total 110 ml 110 ml Hemodialysis UF 1000 ml # Bowel Movements 2 1 Height (Feet): 5 Height (Inches): 5 Weight (Pounds): 116 General Appearance: lethargic, confused EENT: normal ENT inspection Neck: normal alignment Cardiovascular: normal rate Respiratory/Chest: lungs clear Abdomen: non tender Extremities: no edema Neurologic: motor weakness Objective sacral decub Dylon Stringer MD Nov 29, 2019 12:20
[2019-11-29 16:00] VITALS: BP 119/60
[2019-11-29 20:28] VITALS: BP 130/69
--- NOTE | 2019-11-30 00:30 | Progress Note ---
DATE: 11/29/2019 SUBJECTIVE: Patient continues on wound care following debridement. She is on hemodialysis with ultrafiltration today. She remains withdrawn and lethargic, but slightly more alert. She still is afebrile. Blood pressure parameters remain low range off her usual antihypertensive medications. OBJECTIVE: VITAL SIGNS: Blood pressure 118/59, pulse 106, respirations 18. LUNGS: Clear. CARDIAC: Regular. No new murmur. ABDOMEN: Soft. No edema. Wound site has dressing in place. IMPRESSION: 1. Sepsis. 2. Decubitus, status post debridement. 3. End-stage renal disease. 4. Metabolic and toxic encephalopathies. 5. Sinus tachycardia. 6. Septic shock. 7. History of labile hypertension. PLAN: 1. Hemodialysis with ultrafiltration. 2. Antimicrobials. 3. Wound care recheck. 4. Lab studies. 5. Hold antihypertensives for now with the exception of beta-franck. Bulmaro Hester M.D. DR: ANI JOB#: [id number] CC:
[2019-11-30 00:32] VITALS: BP 115/64
[2019-11-30 04:00] VITALS: BP 115/56
[2019-11-30] MEDS: Piperacillin/Tazobactam 2.25 GM in NS 55 ML IV SCH (05:23)
[2019-11-30 08:00] VITALS: BP 118/61
[2019-11-30] MEDS ORDERED: Heparin Sod 1000 units/ml 10ml IV PRN (09:00)
[2019-11-30] MEDS: Heparin 5000 units/ml inj SUBQ SCH ×2 (09:00→21:14)
[2019-11-30] MEDS: Zinc Sulfate 220mg ORAL SCH (09:57)
[2019-11-30] MEDS: Megace 400mg/10ml Susp ORAL SCH ×2 (09:57→18:17)
[2019-11-30] MEDS: Nephrovite tab (Rena-Vite) ORAL SCH (09:57)
[2019-11-30] MEDS: Ascorbic Acid 500mg tab ORAL SCH (09:57)
[2019-11-30] MEDS: Aspirin Baby 81mg ORAL SCH (09:57)
--- NOTE | 2019-11-30 10:02 | Infectious Diseases Prog Note ---
Assessment/Plan Assessment/Plan antibiotics : zosyn A 1. leucocytosis improving 2. COVID 19 negative 3. renal failure 4. hypertension 5. dementia 6. decubitus ulcers s/p debridement, ostectomy P 1. d/c zosyn 2. start cefepime 3. will follow up cultures Subjective ROS Limited/Unobtainable: Yes Allergies: Coded Allergies: No Known Allergies (Unverified , 02/27/19) Objective Last 24 Hour Vital Signs Date Time Temp Pulse Resp B/P (MAP) Pulse Ox O2 Delivery O2 Flow Rate FiO2 11/30/19 09:00 100 118/61 11/30/19 08:00 98.0 100 22 118/61 (80) 97 11/30/19 04:00 98.3 105 21 115/56 (75) 96 11/30/19 00:32 97.5 97 21 115/64 (81) 95 11/29/19 20:57 Room Air 11/29/19 20:35 111 130/69 11/29/19 20:28 98.7 111 21 130/69 (89) 94 11/29/19 16:00 98.8 99 20 119/60 (79) 96 11/29/19 12:00 98.8 107 19 120/69 (86) 93 Height (Feet): 5 Height (Inches): 5 Weight (Pounds): 116 Respiratory/Chest: lungs clear Cardiovascular: normal rate, regular rhythm, no gallop/murmur Abdomen: soft, non tender Extremities: no edema Current Medications Medications (Trade) Dose Ordered Sig/Jeanne Route PRN Reason Start Time Stop Time Status Last Admin Dose Admin Acetaminophen (Tylenol) 650 mg Q4H PRN ORAL For Pain 11/25/19 08:00 12/25/19 07:59 11/25/19 11:20 Ascorbic Acid (Vitamin C) 500 mg DAILY ORAL 11/28/19 11:30 12/28/19 11:29 11/30/19 09:57 Aspirin (ASA) 81 mg DAILY ORAL 11/25/19 09:00 01/09/20 08:59 11/30/19 09:57 Atorvastatin Calcium (Lipitor) 10 mg BEDTIME ORAL 11/28/19 21:00 02/26/20 20:59 11/29/19 20:35 Clonidine HCl (Catapres Tab) 0.1 mg Q4H PRN ORAL SBP above 160 11/26/19 23:15 02/24/20 23:14 Heparin Sodium (Porcine) (Heparin 5000 units/ml) 5,000 units EVERY 12 HOURS SUBQ 11/25/19 10:30 01/09/20 10:29 11/29/19 20:36 Heparin Sodium (Porcine) (Heparin Sod 1000 units/ml 10ml) 500 unit ONCE PRN IV dialysis 11/30/19 09:00 11/30/19 23:59 Megestrol Acetate (Megace) 400 mg TWICE A DAY ORAL 11/29/19 10:30 02/27/20 10:29 11/30/19 09:57 Metoprolol Tartrate (Lopressor) 25 mg Q12HR ORAL 11/26/19 23:15 02/24/20 23:14 11/29/19 20:35 Morphine Sulfate (Morphine Sulfate) 1 mg Q4H PRN IVP pain scale 1-3 11/27/19 14:30 12/04/19 14:29 Morphine Sulfate (Morphine Sulfate) 2 mg Q4H PRN IVP pain scale 4-6 11/27/19 14:30 12/04/19 14:29 Morphine Sulfate (Morphine Sulfate) 4 mg Q4H PRN IVP pain score 7-10 11/27/19 14:30 12/04/19 14:29 Olanzapine (ZyPREXA) 2.5 mg Q6H PRN ORAL agitation 11/27/19 15:45 01/11/20 15:44 Piperacillin Sod/ Tazobactam Sod 2.25 gm/Sodium Chloride 55 ml @ 110 mls/hr Q8H IV 11/26/19 22:00 12/03/19 21:59 11/30/19 05:23 Sodium Chloride 1,000 ml @ 500 mls/hr Q2H PRN IVLG sbp<90 during hd 11/30/19 09:00 11/30/19 23:59 Vitamin B Complex/ Vit C/Folic Acid (Nephrovite) 1 tab DAILY ORAL 11/28/19 11:30 12/28/19 11:29 11/30/19 09:57 Zinc Sulfate (Zinc Sulfate) 220 mg DAILY ORAL 11/28/19 11:30 02/26/20 11:29 11/30/19 09:57 Ovidio Wilson MD Nov 30, 2019 10:02
[2019-11-30] MEDS ORDERED: Cefepime HCl 1 GM in D5W 55 ML IVPB SCH ×2 (10:15→15:00)
[2019-11-30 12:51] VITALS: BP 111/62
--- NOTE | 2019-11-30 13:50 | Nephrology Progress Note ---
Assessment/Plan Problem List: (1) ESRD (end stage renal disease) (2) CVA, old, cognitive deficits (3) Dementia (4) Weakness (5) Hypertensive nephrosclerosis (6) Anemia in chronic kidney disease (7) Deep tissue injury (8) Leukocytosis Plan fevers, possible sepsis likely from decubitus, debridement done , HD 11/29 dc norvasc low bp,continue antibiotics Subjective ROS Limited/Unobtainable: Yes Objective Objective Last 24 Hour Vital Signs Date Time Temp Pulse Resp B/P (MAP) Pulse Ox O2 Delivery O2 Flow Rate FiO2 11/30/19 12:51 98.2 93 19 111/62 (78) 96 11/30/19 09:00 Room Air 11/30/19 09:00 100 118/61 11/30/19 08:00 98.0 100 22 118/61 (80) 97 11/30/19 04:00 98.3 105 21 115/56 (75) 96 11/30/19 00:32 97.5 97 21 115/64 (81) 95 11/29/19 20:57 Room Air 11/29/19 20:35 111 130/69 11/29/19 20:28 98.7 111 21 130/69 (89) 94 11/29/19 16:00 98.8 99 20 119/60 (79) 96 Intake and Output 11/29/19 11/30/19 19:00 07:00 Intake Total 200 ml 110 ml Balance 200 ml 110 ml IV Total 110 ml Other 200 ml # Voids 1 Height (Feet): 5 Height (Inches): 5 Weight (Pounds): 116 General Appearance: no apparent distress, alert, confused EENT: normal ENT inspection Neck: normal alignment Cardiovascular: regular rhythm Respiratory/Chest: lungs clear, normal breath sounds Abdomen: soft Extremities: no edema Neurologic: abnormal 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
--- NOTE | 2019-11-30 15:48 | General Progress Note ---
Assessment/Plan Problem List: (1) ESRD (end stage renal disease) ICD Codes: N18.6 - End stage renal disease SNOMED: 56765065 (2) CVA, old, cognitive deficits ICD Codes: I69.319 - Unspecified symptoms and signs involving cognitive functions following cerebral infarction SNOMED: 24925888, 529598936, 154779440, 519251611 (3) Dementia ICD Codes: F03.90 - Unspecified dementia without behavioral disturbance SNOMED: 51867347 (4) Leukocytosis ICD Codes: D72.829 - Elevated white blood cell count, unspecified SNOMED: 125396370, 127373580 (5) Deep tissue injury ICD Codes: T14.8XXA - Other injury of unspecified body region, initial encounter SNOMED: 355874176 (6) Anemia in chronic kidney disease ICD Codes: N18.9 - Chronic kidney disease, unspecified; D63.1 - Anemia in chronic kidney disease SNOMED: 287061990 Status: stable, not improved Assessment/Plan: iv abx per ID follow up cultures wound care avoid sedation encourage po HD per renal psych rx meagce compliance stressed dc planning when cleared by all Subjective ROS Limited/Unobtainable: Yes Constitutional: Reports: no symptoms HEENT: Reports: no symptoms Cardiovascular: Reports: no symptoms Respiratory: Reports: no symptoms Gastrointestinal/Abdominal: Reports: poor appetite, poor fluid intake Genitourinary: Reports: no symptoms Neurologic/Psychiatric: Reports: pre-existing deficit Endocrine: Reports: no symptoms Hematologic/Lymphatic: Reports: anemia Allergies: Coded Allergies: No Known Allergies (Unverified , 02/27/19) All Systems: reviewed and negative except above Subjective No events. Currently resting and withdrawn. Minimal p.o. intake. ID noted. Antibiotics adjusted. No fevers or chills. No shortness of breath. On wound care. Objective Last 24 Hour Vital Signs Date Time Temp Pulse Resp B/P (MAP) Pulse Ox O2 Delivery O2 Flow Rate FiO2 11/30/19 12:51 98.2 93 19 111/62 (78) 96 11/30/19 09:00 Room Air 11/30/19 09:00 100 118/61 11/30/19 08:00 98.0 100 22 118/61 (80) 97 11/30/19 04:00 98.3 105 21 115/56 (75) 96 11/30/19 00:32 97.5 97 21 115/64 (81) 95 11/29/19 20:57 Room Air 11/29/19 20:35 111 130/69 11/29/19 20:28 98.7 111 21 130/69 (89) 94 11/29/19 16:00 98.8 99 20 119/60 (79) 96 Intake and Output 11/29/19 11/30/19 19:00 07:00 Intake Total 200 ml 110 ml Balance 200 ml 110 ml IV Total 110 ml Other 200 ml # Voids 1 Height (Feet): 5 Height (Inches): 5 Weight (Pounds): 116 Objective General Appearance: WD/WN, alert, lethargic EENT: PERRL/EOMI, normal ENT inspection Neck: non-tender, normal alignment, supple Cardiovascular: normal peripheral pulses, normal rate Respiratory/Chest: chest wall non-tender, lungs clear, normal breath sounds, no respiratory distress Abdomen: normal bowel sounds, non tender, soft, no organomegaly Edema: no edema noted Arm (L), no edema noted Arm (R), no edema noted Leg (L), no edema noted Leg (R), no edema noted Pedal (L), no edema noted Pedal (R), no edema noted Generalized Neurologic: disoriented, aphasia Skin: normal pigmentation Lymphatic: normal anterior cervical (L), normal anterior cervical (R) rFeddy Quevedo MD Nov 30, 2019 15:48
[2019-11-30 16:00] VITALS: BP 114/66
[2019-11-30 19:57] VITALS: BP 112/56
[2019-12-01] VITALS: BP 122/60
[2019-12-01 04:00] VITALS: BP 109/60
--- NOTE | 2019-12-01 04:00 | Progress Note ---
DATE: 11/30/2019 SUBJECTIVE: The patient withdrawn, alert, no distress. Appetite is poor. Wound care ongoing. OBJECTIVE: VITAL SIGNS: Blood pressure 111/62, heart rate 93 to 105, respiratory rate 22, afebrile. LUNGS: No wheezing. CARDIAC: Regular rhythm. Rapid rate. Normal S1, S2. ABDOMEN: Soft. EXTREMITIES: No edema. Decubitus site of debridement has dressing in place. LABORATORY DATA: No new laboratory studies. IMPRESSION: 1. Sepsis. 2. Metabolic and toxic encephalopathy. 3. Sinus tachycardia. 4. Hypertensive heart disease. 5. End-stage renal disease. 6. Infected sacral decubitus, status post I and D. 7. Severe protein-calorie malnutrition. PLAN: 1. Wound care. 2. Antimicrobials. 3. Hemodialysis with ultrafiltration. 4. Titrate anti-hypertensive med regimen. 5. Beta-franck dose has been advanced. Bulmaro Hester M.D. DR: MOE JOB#: [id number] CC:
[2019-12-01 08:00] VITALS: BP 118/55
[2019-12-01] MEDS: Nephrovite tab (Rena-Vite) ORAL SCH (08:32)
[2019-12-01] MEDS: Ascorbic Acid 500mg tab ORAL SCH (08:32)
[2019-12-01] MEDS: Zinc Sulfate 220mg ORAL SCH (08:32)
[2019-12-01] MEDS: Aspirin Baby 81mg ORAL SCH (08:33)
[2019-12-01] MEDS: Metoprolol Tartrate 50mg tab ORAL SCH ×2 (08:33→20:49)
[2019-12-01] MEDS: Megace 400mg/10ml Susp ORAL SCH ×2 (08:33→17:06)
[2019-12-01] MEDS: Cefepime 500mg in D5W 55ml IVPB SCH (08:34)
[2019-12-01] MEDS: Heparin 5000 units/ml inj SUBQ SCH ×2 (08:35→20:56)
--- NOTE | 2019-12-01 10:27 | Infectious Diseases Prog Note ---
Assessment/Plan Assessment/Plan antibiotics : cefepime A 1. leucocytosis improving 2. COVID 19 negative 3. renal failure 4. hypertension 5. dementia 6. decubitus ulcers s/p debridement, ostectomy P 1. continue cefepime 2 more days 2. will follow up cultures Subjective ROS Limited/Unobtainable: Yes Allergies: Coded Allergies: No Known Allergies (Unverified , 02/27/19) Objective Last 24 Hour Vital Signs Date Time Temp Pulse Resp B/P (MAP) Pulse Ox O2 Delivery O2 Flow Rate FiO2 12/01/19 09:00 Room Air 12/01/19 08:33 92 118/55 12/01/19 08:00 97.5 92 18 118/55 (76) 98 12/01/19 04:59 Room Air 12/01/19 04:00 98.7 97 21 109/60 (76) 96 12/01/19 00:00 98.4 101 22 122/60 (80) 97 11/30/19 21:00 Room Air 11/30/19 21:00 99 112/56 11/30/19 19:57 97.3 99 22 112/56 (74) 97 11/30/19 16:00 98.1 96 18 114/66 (82) 97 11/30/19 12:51 98.2 93 19 111/62 (78) 96 Height (Feet): 5 Height (Inches): 5 Weight (Pounds): 116 Respiratory/Chest: lungs clear Cardiovascular: normal rate, regular rhythm, no gallop/murmur Abdomen: soft, non tender Extremities: no edema Current Medications Medications (Trade) Dose Ordered Sig/Jeanne Route PRN Reason Start Time Stop Time Status Last Admin Dose Admin Acetaminophen (Tylenol) 650 mg Q4H PRN ORAL For Pain 11/25/19 08:00 12/25/19 07:59 11/25/19 11:20 Ascorbic Acid (Vitamin C) 500 mg DAILY ORAL 11/28/19 11:30 12/28/19 11:29 12/01/19 08:32 Aspirin (ASA) 81 mg DAILY ORAL 11/25/19 09:00 01/09/20 08:59 12/01/19 08:33 Atorvastatin Calcium (Lipitor) 10 mg BEDTIME ORAL 11/28/19 21:00 02/26/20 20:59 11/30/19 21:04 Cefepime HCl 500 mg/Dextrose 55 ml @ 110 mls/hr Q24H IVPB 12/01/19 09:00 12/07/19 08:59 12/01/19 08:34 Clonidine HCl (Catapres Tab) 0.1 mg Q4H PRN ORAL SBP above 160 11/26/19 23:15 02/24/20 23:14 Heparin Sodium (Porcine) (Heparin 5000 units/ml) 5,000 units EVERY 12 HOURS SUBQ 11/25/19 10:30 01/09/20 10:29 12/01/19 08:35 Megestrol Acetate (Megace) 400 mg TWICE A DAY ORAL 11/29/19 10:30 02/27/20 10:29 12/01/19 08:33 Metoprolol Tartrate (Lopressor) 50 mg Q12HR ORAL 12/01/19 09:00 02/29/20 08:59 12/01/19 08:33 Morphine Sulfate (Morphine Sulfate) 1 mg Q4H PRN IVP pain scale 1-3 11/27/19 14:30 12/04/19 14:29 Morphine Sulfate (Morphine Sulfate) 2 mg Q4H PRN IVP pain scale 4-6 11/27/19 14:30 12/04/19 14:29 Morphine Sulfate (Morphine Sulfate) 4 mg Q4H PRN IVP pain score 7-10 11/27/19 14:30 12/04/19 14:29 Olanzapine (ZyPREXA) 2.5 mg Q6H PRN ORAL agitation 11/27/19 15:45 01/11/20 15:44 Vitamin B Complex/ Vit C/Folic Acid (Nephrovite) 1 tab DAILY ORAL 11/28/19 11:30 12/28/19 11:29 12/01/19 08:32 Zinc Sulfate (Zinc Sulfate) 220 mg DAILY ORAL 11/28/19 11:30 02/26/20 11:29 12/01/19 08:32 Ovidio Wilson MD Dec 01, 2019 10:27
[2019-12-01 12:00] VITALS: BP 114/77
--- NOTE | 2019-12-01 13:19 | Surgery Progress Note ---
Surgery Progress Note Subjective Procedure Performed Excisional debridement of sacral decubitus ulcer 10 cm x 8 cm x 4 cm deep down to bone with ostectomy Additional Comments doing well comfortable no n/v/f/c wound dressings going well Objective Last 24 Hour Vital Signs Date Time Temp Pulse Resp B/P (MAP) Pulse Ox O2 Delivery O2 Flow Rate FiO2 12/01/19 12:00 97.5 92 20 114/77 (89) 98 12/01/19 09:00 Room Air 12/01/19 08:33 92 118/55 12/01/19 08:00 97.5 92 18 118/55 (76) 98 12/01/19 04:59 Room Air 12/01/19 04:00 98.7 97 21 109/60 (76) 96 12/01/19 00:00 98.4 101 22 122/60 (80) 97 11/30/19 21:00 Room Air 11/30/19 21:00 99 112/56 11/30/19 19:57 97.3 99 22 112/56 (74) 97 11/30/19 16:00 98.1 96 18 114/66 (82) 97 I&O Intake and Output 11/30/19 12/01/19 19:00 07:00 Intake Total 600 ml Output Total 1000 ml Balance -400 ml Intake Oral 600 ml Hemodialysis UF 1000 ml # Voids 1 # Bowel Movements 1 Dressing: other Wound: other Cardiovascular: RSR Respiratory: decreased breath sounds Abdomen: soft, non-tender, present bowel sounds Extremities: no cyanosis Assessment Post-op Diagnosis 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 Given her current condition and these findings I spoke with the brother medical teams and have received consent for excisional debridement of sacral decubitus ulcer possible ostectomy bone biopsy. We will schedule accordingly. Care plan initiated. Will follow with recommendations thank you Nutritional optimization DAILY ESTIMATED NEEDS: Needs based on Renal, HD, wound, 44.1kg 30-40 kcals/kg 0017-2869 total kcals 1.25-2 g protein/kg 55-88 g total protein Fluid per MD, on HD NUTRITION DIAGNOSIS: Increased kcal/prot intake needs R/T renal dysfunction, underweight status, wound healing as evidenced by ESRD dx, on HD, pt is 72% of [place] Body Weight admitted w/ sacral open wound. CURRENT DIET:RENAL PO DIET RECOMMENDATIONS: RENAL/ texture as tolerated or per MEDICAL RECORD LIBRARIAN ADDITIONAL RECOMMENDATIONS: * Recalibrate bed scale -> Bed scale currently reads 165 lbs (Last HD 11/24/19 wt per SNF 44.1kg/97 lbs ) * Nepro 1 tetra penny TID w/ meals: 425kcal/19g prot per penny * Consider MEDICAL RECORD LIBRARIAN eval for appropriate texture: h/o CVA * Wound healing: Add SIS BID (f/up w/ WC eval) * Snacks in b/w meals as tolerated * 1:1 feeds * Consult for non oral feeds if not alert for oral po intake (8) Leukocytosis Assessment & Plan: 74F leukocytosis, abnormal labs, failure to thrive, malnutrition, DTI patient needs nutritional optimization she has a foul smelling sacral DTI that is large and would benefit from debridement will discuss with medical teams for consideration and family for consent thank you Jesse Quinn Dec 01, 2019 13:19
[2019-12-01 16:00] VITALS: BP 119/81
--- NOTE | 2019-12-01 16:58 | General Progress Note ---
Assessment/Plan Problem List: (1) ESRD (end stage renal disease) ICD Codes: N18.6 - End stage renal disease SNOMED: 29756025 (2) CVA, old, cognitive deficits ICD Codes: I69.319 - Unspecified symptoms and signs involving cognitive functions following cerebral infarction SNOMED: 13502630, 865620842, 943913792, 352284421 (3) Dementia ICD Codes: F03.90 - Unspecified dementia without behavioral disturbance SNOMED: 51470338 (4) Leukocytosis ICD Codes: D72.829 - Elevated white blood cell count, unspecified SNOMED: 890043888, 336136930 (5) Deep tissue injury ICD Codes: T14.8XXA - Other injury of unspecified body region, initial encounter SNOMED: 752526093 (6) Anemia in chronic kidney disease ICD Codes: N18.9 - Chronic kidney disease, unspecified; D63.1 - Anemia in chronic kidney disease SNOMED: 140741921 Status: stable, not improved Assessment/Plan: iv abx per ID follow up cultures wound care avoid sedation encourage po HD per renal psych rx meagce compliance stressed dc planning Tuesday if ok with all Subjective ROS Limited/Unobtainable: No Constitutional: Reports: malaise, weakness HEENT: Reports: no symptoms Cardiovascular: Reports: no symptoms Respiratory: Reports: no symptoms Gastrointestinal/Abdominal: Reports: difficulty swallowing Genitourinary: Reports: no symptoms Neurologic/Psychiatric: Reports: anxiety, depressed, emotional problems Endocrine: Reports: no symptoms Hematologic/Lymphatic: Reports: anemia Allergies: Coded Allergies: No Known Allergies (Unverified , 02/27/19) All Systems: reviewed and negative except above Subjective No events. Currently resting and withdrawn. Minimal p.o. intake. occasionally pocketing food. surgery and ID noted. Antibiotics adjusted. No fevers or chills. No shortness of breath. On wound care. Objective Last 24 Hour Vital Signs Date Time Temp Pulse Resp B/P (MAP) Pulse Ox O2 Delivery O2 Flow Rate FiO2 12/01/19 12:00 97.5 92 20 114/77 (89) 98 12/01/19 09:00 Room Air 12/01/19 08:33 92 118/55 12/01/19 08:00 97.5 92 18 118/55 (76) 98 12/01/19 04:59 Room Air 12/01/19 04:00 98.7 97 21 109/60 (76) 96 12/01/19 00:00 98.4 101 22 122/60 (80) 97 11/30/19 21:00 Room Air 11/30/19 21:00 99 112/56 11/30/19 19:57 97.3 99 22 112/56 (74) 97 Intake and Output 11/30/19 12/01/19 19:00 07:00 Intake Total 600 ml Output Total 1000 ml Balance -400 ml Intake Oral 600 ml Hemodialysis UF 1000 ml # Voids 1 # Bowel Movements 1 Height (Feet): 5 Height (Inches): 5 Weight (Pounds): 116 Objective General Appearance: WD/WN, alert, lethargic EENT: PERRL/EOMI, normal ENT inspection Neck: non-tender, normal alignment, supple Cardiovascular: normal peripheral pulses, normal rate Respiratory/Chest: chest wall non-tender, lungs clear, normal breath sounds, no respiratory distress Abdomen: normal bowel sounds, non tender, soft, no organomegaly Edema: no edema noted Arm (L), no edema noted Arm (R), no edema noted Leg (L), no edema noted Leg (R), no edema noted Pedal (L), no edema noted Pedal (R), no edema noted Generalized Neurologic: disoriented, aphasia Skin: normal pigmentation Lymphatic: normal anterior cervical (L), normal anterior cervical (R) Freddy Quevedo MD Dec 01, 2019 16:58
--- NOTE | 2019-12-01 17:23 | Nephrology Progress Note ---
Assessment/Plan Problem List: (1) ESRD (end stage renal disease) (2) CVA, old, cognitive deficits (3) Dementia (4) Weakness (5) Hypertensive nephrosclerosis (6) Anemia in chronic kidney disease (7) Deep tissue injury (8) Leukocytosis Plan fevers, possible sepsis likely from decubitus, debridement done , HD 11/29 dc norvasc low bp,continue antibiotics Subjective ROS Limited/Unobtainable: Yes Objective Objective Last 24 Hour Vital Signs Date Time Temp Pulse Resp B/P (MAP) Pulse Ox O2 Delivery O2 Flow Rate FiO2 12/01/19 12:00 97.5 92 20 114/77 (89) 98 12/01/19 09:00 Room Air 12/01/19 08:33 92 118/55 12/01/19 08:00 97.5 92 18 118/55 (76) 98 12/01/19 04:59 Room Air 12/01/19 04:00 98.7 97 21 109/60 (76) 96 12/01/19 00:00 98.4 101 22 122/60 (80) 97 11/30/19 21:00 Room Air 11/30/19 21:00 99 112/56 11/30/19 19:57 97.3 99 22 112/56 (74) 97 Intake and Output 11/30/19 12/01/19 19:00 07:00 Intake Total 600 ml Output Total 1000 ml Balance -400 ml Intake Oral 600 ml Hemodialysis UF 1000 ml # Voids 1 # Bowel Movements 1 Height (Feet): 5 Height (Inches): 5 Weight (Pounds): 116 General Appearance: lethargic, confused EENT: normal ENT inspection Neck: normal alignment Cardiovascular: regular rhythm Respiratory/Chest: lungs clear Abdomen: soft Extremities: no edema Neurologic: abnormal basket sorter II-XII, motor weakness Objective sacral decub Dylon Stringer MD Dec 01, 2019 17:23
--- NOTE | 2019-12-01 17:33 | Psych Consult Progress Note ---
Psychiatry Progress Note Psychiatry Progress Note Subjective the pt is calm nad at baseline confused and agitated Medications Current Medications Medications (Trade) Dose Ordered Sig/Jeanne Route PRN Reason Start Time Stop Time Status Last Admin Dose Admin Acetaminophen (Tylenol) 650 mg Q4H PRN ORAL For Pain 11/25/19 08:00 12/25/19 07:59 11/25/19 11:20 Ascorbic Acid (Vitamin C) 500 mg DAILY ORAL 11/28/19 11:30 12/28/19 11:29 12/01/19 08:32 Aspirin (ASA) 81 mg DAILY ORAL 11/25/19 09:00 01/09/20 08:59 12/01/19 08:33 Atorvastatin Calcium (Lipitor) 10 mg BEDTIME ORAL 11/28/19 21:00 02/26/20 20:59 11/30/19 21:04 Cefepime HCl 500 mg/Dextrose 55 ml @ 110 mls/hr Q24H IVPB 12/01/19 09:00 12/07/19 08:59 12/01/19 08:34 Clonidine HCl (Catapres Tab) 0.1 mg Q4H PRN ORAL SBP above 160 11/26/19 23:15 02/24/20 23:14 Heparin Sodium (Porcine) (Heparin 5000 units/ml) 5,000 units EVERY 12 HOURS SUBQ 11/25/19 10:30 01/09/20 10:29 12/01/19 08:35 Megestrol Acetate (Megace) 400 mg TWICE A DAY ORAL 11/29/19 10:30 02/27/20 10:29 12/01/19 17:06 Metoprolol Tartrate (Lopressor) 50 mg Q12HR ORAL 12/01/19 09:00 02/29/20 08:59 12/01/19 08:33 Morphine Sulfate (Morphine Sulfate) 1 mg Q4H PRN IVP pain scale 1-3 11/27/19 14:30 12/04/19 14:29 Morphine Sulfate (Morphine Sulfate) 2 mg Q4H PRN IVP pain scale 4-6 11/27/19 14:30 12/04/19 14:29 Morphine Sulfate (Morphine Sulfate) 4 mg Q4H PRN IVP pain score 7-10 11/27/19 14:30 12/04/19 14:29 Olanzapine (ZyPREXA) 2.5 mg Q6H PRN ORAL agitation 11/27/19 15:45 01/11/20 15:44 Vitamin B Complex/ Vit C/Folic Acid (Nephrovite) 1 tab DAILY ORAL 11/28/19 11:30 12/28/19 11:29 12/01/19 08:32 Zinc Sulfate (Zinc Sulfate) 220 mg DAILY ORAL 11/28/19 11:30 02/26/20 11:29 12/01/19 08:32 Allergies: Coded Allergies: No Known Allergies (Unverified , 02/27/19) Objective Data Height (Feet): 5 Height (Inches): 5 Weight (Pounds): 116 General Appearance: WD/WN, no apparent distress, alert, confused Appearance: no abnormalities noted Behavior Mannerisms: poor eye contact Mental Status Exam - Affect: blunted Mental Status Exam - Mood: apathetic Speech: clear Mental Status Exam - Thought P: confusion Mental Status Exam - Suicidal: not present Assessment/Plan Problem List: (1) acute toxic encephalopathy Status: stable, not improved Assessment/Plan: dc darwinapro may benefit from low dose antipsychotics treat the underlying medical issues Binh Baltazar MD Dec 01, 2019 17:33
[2019-12-01 20:00] VITALS: BP 127/61
--- NOTE | 2019-12-01 23:00 | Progress Note ---
DATE: 12/01/2019 CARDIOLOGY PROGRESS NOTE SUBJECTIVE: The patient remains without new fevers. Blood pressure parameters remain low normal range, off all antihypertensives. PHYSICAL EXAMINATION: LUNGS: Bilateral breath sounds. No wheezing. CARDIAC: Regular rhythm and rate. Normal S1, S2. ABDOMEN: Soft, no edema. IMPRESSION: 1. Sepsis. 2. Infected decubitus ulcer. 3. Hypertensive heart disease. 4. Recovering shock. 5. End-stage renal disease. 6. Acute on chronic diastolic congestive heart failure. 7. Metabolic and toxic encephalopathies. 8. Dementia with confusion. PLAN: 1. Hold antihypertensives. 2. Maintain beta-franck alone for now. 3. Hemodialysis with ultrafiltration based on volume management. 4. Antimicrobials. 5. Skin care. Bulmaro Hester M.D. DR: JESS JOB#: [id number] CC:
[2019-12-02] VITALS: BP 99/57
[2019-12-02 04:00] VITALS: BP 105/58
[2019-12-02 08:00] VITALS: BP 106/57
[2019-12-02] MEDS: Zinc Sulfate 220mg ORAL SCH (08:52)
[2019-12-02] MEDS: Aspirin Baby 81mg ORAL SCH (08:52)
[2019-12-02] MEDS: Megace 400mg/10ml Susp ORAL SCH ×2 (08:53→17:24)
[2019-12-02] MEDS: Nephrovite tab (Rena-Vite) ORAL SCH (08:53)
[2019-12-02] MEDS: Metoprolol Tartrate 50mg tab ORAL SCH ×2 (08:54→20:54)
[2019-12-02] MEDS: Ascorbic Acid 500mg tab ORAL SCH (08:54)
[2019-12-02] MEDS: Cefepime 500mg in D5W 55ml IVPB SCH (08:55)
[2019-12-02] MEDS: Heparin 5000 units/ml inj SUBQ SCH ×2 (08:59→20:59)
--- NOTE | 2019-12-02 11:36 | General Progress Note ---
Assessment/Plan Problem List: (1) ESRD (end stage renal disease) ICD Codes: N18.6 - End stage renal disease SNOMED: 94251690 (2) CVA, old, cognitive deficits ICD Codes: I69.319 - Unspecified symptoms and signs involving cognitive functions following cerebral infarction SNOMED: 62857623, 635486799, 196481672, 389356461 (3) Dementia ICD Codes: F03.90 - Unspecified dementia without behavioral disturbance SNOMED: 44993856 (4) Leukocytosis ICD Codes: D72.829 - Elevated white blood cell count, unspecified SNOMED: 650901175, 917334063 (5) Deep tissue injury ICD Codes: T14.8XXA - Other injury of unspecified body region, initial encounter SNOMED: 399308923 (6) Anemia in chronic kidney disease ICD Codes: N18.9 - Chronic kidney disease, unspecified; D63.1 - Anemia in chronic kidney disease SNOMED: 951523983 Status: stable, not improved Assessment/Plan: iv abx per ID follow up cultures wound care avoid sedation encourage po HD per renal psych rx meagce compliance stressed dc planning Tuesday if ok with all Subjective ROS Limited/Unobtainable: No Constitutional: Reports: malaise, weakness HEENT: Reports: no symptoms Cardiovascular: Reports: no symptoms Respiratory: Reports: no symptoms Gastrointestinal/Abdominal: Reports: poor appetite, poor fluid intake Genitourinary: Reports: no symptoms Neurologic/Psychiatric: Reports: no symptoms Endocrine: Reports: no symptoms Hematologic/Lymphatic: Reports: no symptoms Allergies: Coded Allergies: No Known Allergies (Unverified , 02/27/19) All Systems: reviewed and negative except above Subjective No events. Currently resting and withdrawn. Minimal p.o. intake. occasionally pocketing food. surgery and ID noted. Antibiotics adjusted. No fevers or chills. No shortness of breath. On wound care. mostly poor po intake Objective Last 24 Hour Vital Signs Date Time Temp Pulse Resp B/P (MAP) Pulse Ox O2 Delivery O2 Flow Rate FiO2 12/02/19 09:00 Room Air 12/02/19 08:54 94 108/54 12/02/19 08:00 98.2 97 19 106/57 (73) 98 12/02/19 04:00 98.6 98 18 105/58 (74) 97 12/02/19 00:00 98.7 94 18 99/57 (71) 98 12/01/19 20:49 94 112/59 12/01/19 20:07 Room Air 12/01/19 20:00 98.1 99 18 127/61 (83) 97 12/01/19 16:00 97.8 89 19 119/81 (94) 96 12/01/19 12:00 97.5 92 20 114/77 (89) 98 Intake and Output 12/01/19 12/02/19 19:00 07:00 Intake Total 300 ml 240 ml Balance 300 ml 240 ml Intake Oral 240 ml Other 300 ml # Voids 1 Height (Feet): 5 Height (Inches): 5 Weight (Pounds): 116 Objective General Appearance: WD/WN, alert, lethargic EENT: PERRL/EOMI, normal ENT inspection Neck: non-tender, normal alignment, supple Cardiovascular: normal peripheral pulses, normal rate Respiratory/Chest: chest wall non-tender, lungs clear, normal breath sounds, no respiratory distress Abdomen: normal bowel sounds, non tender, soft, no organomegaly Edema: no edema noted Arm (L), no edema noted Arm (R), no edema noted Leg (L), no edema noted Leg (R), no edema noted Pedal (L), no edema noted Pedal (R), no edema noted Generalized Neurologic: disoriented, aphasia Skin: normal pigmentation Lymphatic: normal anterior cervical (L), normal anterior cervical (R) Freddy Quevedo MD Dec 02, 2019 11:36
[2019-12-02 12:00] VITALS: BP 96/43
--- NOTE | 2019-12-02 13:45 | Infectious Diseases Prog Note ---
Assessment/Plan Assessment/Plan A 1. leucocytosis improving 2. COVID 19 negative 3. renal failure 4. hypertension 5. dementia 6. 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 continue Cefepime X 1 day 2. will follow up CBC Subjective ROS Limited/Unobtainable: Yes Allergies: Coded Allergies: No Known Allergies (Unverified , 02/27/19) Objective Last 24 Hour Vital Signs Date Time Temp Pulse Resp B/P (MAP) Pulse Ox O2 Delivery O2 Flow Rate FiO2 12/02/19 12:00 98.6 94 18 96/43 (60) 99 12/02/19 09:00 Room Air 12/02/19 08:54 94 108/54 12/02/19 08:00 98.2 97 19 106/57 (73) 98 12/02/19 04:00 98.6 98 18 105/58 (74) 97 12/02/19 00:00 98.7 94 18 99/57 (71) 98 12/01/19 20:49 94 112/59 12/01/19 20:07 Room Air 12/01/19 20:00 98.1 99 18 127/61 (83) 97 12/01/19 16:00 97.8 89 19 119/81 (94) 96 Height (Feet): 5 Height (Inches): 5 Weight (Pounds): 116 General Appearance: no acute distress HEENT: mucous membranes moist Respiratory/Chest: lungs clear Cardiovascular: normal rate Abdomen: soft, non tender Extremities: no edema Skin: ulcers, other - sacral Neurologic/Psychiatric: other - sleeping Current Medications Medications (Trade) Dose Ordered Sig/Jeanne Route PRN Reason Start Time Stop Time Status Last Admin Dose Admin Acetaminophen (Tylenol) 650 mg Q4H PRN ORAL For Pain 11/25/19 08:00 12/25/19 07:59 11/25/19 11:20 Ascorbic Acid (Vitamin C) 500 mg DAILY ORAL 11/28/19 11:30 12/28/19 11:29 12/02/19 08:54 Aspirin (ASA) 81 mg DAILY ORAL 11/25/19 09:00 01/09/20 08:59 12/02/19 08:52 Atorvastatin Calcium (Lipitor) 10 mg BEDTIME ORAL 11/28/19 21:00 02/26/20 20:59 12/01/19 20:50 Cefepime HCl 500 mg/Dextrose 55 ml @ 110 mls/hr Q24H IVPB 12/01/19 09:00 12/07/19 08:59 12/02/19 08:55 Clonidine HCl (Catapres Tab) 0.1 mg Q4H PRN ORAL SBP above 160 11/26/19 23:15 02/24/20 23:14 Heparin Sodium (Porcine) (Heparin 5000 units/ml) 5,000 units EVERY 12 HOURS SUBQ 11/25/19 10:30 01/09/20 10:29 12/02/19 08:59 Megestrol Acetate (Megace) 400 mg TWICE A DAY ORAL 11/29/19 10:30 02/27/20 10:29 12/02/19 08:53 Metoprolol Tartrate (Lopressor) 50 mg Q12HR ORAL 12/01/19 09:00 02/29/20 08:59 12/02/19 08:54 Morphine Sulfate (Morphine Sulfate) 1 mg Q4H PRN IVP pain scale 1-3 11/27/19 14:30 12/04/19 14:29 Morphine Sulfate (Morphine Sulfate) 2 mg Q4H PRN IVP pain scale 4-6 11/27/19 14:30 12/04/19 14:29 Morphine Sulfate (Morphine Sulfate) 4 mg Q4H PRN IVP pain score 7-10 11/27/19 14:30 12/04/19 14:29 Olanzapine (ZyPREXA) 2.5 mg Q6H PRN ORAL agitation 11/27/19 15:45 01/11/20 15:44 Vitamin B Complex/ Vit C/Folic Acid (Nephrovite) 1 tab DAILY ORAL 11/28/19 11:30 12/28/19 11:29 12/02/19 08:53 Zinc Sulfate (Zinc Sulfate) 220 mg DAILY ORAL 11/28/19 11:30 02/26/20 11:29 12/02/19 08:52 Jarrett Levy MD Dec 02, 2019 13:45
--- NOTE | 2019-12-02 15:57 | Nephrology Progress Note ---
Assessment/Plan Problem List: (1) ESRD (end stage renal disease) (2) CVA, old, cognitive deficits (3) Dementia (4) Weakness (5) Hypertensive nephrosclerosis (6) Anemia in chronic kidney disease (7) Deep tissue injury (8) Leukocytosis Plan fevers, possible sepsis likely from decubitus, debridement done , HD 11/29 dc norvasc low bp,continue antibiotics Subjective ROS Limited/Unobtainable: Yes Objective Objective Last 24 Hour Vital Signs Date Time Temp Pulse Resp B/P (MAP) Pulse Ox O2 Delivery O2 Flow Rate FiO2 12/02/19 12:00 98.6 94 18 96/43 (60) 99 12/02/19 09:00 Room Air 12/02/19 08:54 94 108/54 12/02/19 08:00 98.2 97 19 106/57 (73) 98 12/02/19 04:00 98.6 98 18 105/58 (74) 97 12/02/19 00:00 98.7 94 18 99/57 (71) 98 12/01/19 20:49 94 112/59 12/01/19 20:07 Room Air 12/01/19 20:00 98.1 99 18 127/61 (83) 97 12/01/19 16:00 97.8 89 19 119/81 (94) 96 Intake and Output 12/01/19 12/02/19 19:00 07:00 Intake Total 300 ml 240 ml Balance 300 ml 240 ml Intake Oral 240 ml Other 300 ml # Voids 1 Height (Feet): 5 Height (Inches): 5 Weight (Pounds): 116 General Appearance: lethargic, confused EENT: normal ENT inspection Cardiovascular: regular rhythm Respiratory/Chest: lungs clear Abdomen: non tender Extremities: no edema Neurologic: abnormal library consultant II-XII, motor weakness Objective sacral decub Dylon Stringer MD Dec 02, 2019 15:56
[2019-12-02 16:00] VITALS: BP 109/50
[2019-12-02 17:03] LABS: BASOPHILS % (AUTO) 0.3 % (0.0-2.0); EOSINOPHILS % (AUTO) 0.5 % (0.0-3.0); HEMOGLOBIN 8.5 G/DL (12.0-16.0); LYMPHOCYTES % (AUTO) 10.1 % (20.0-45.0); MEAN CORPUSCULAR VOLUME 90 FL (80-99); MONOCYTES % (AUTO) 6.6 % (1.0-10.0); NEUTROPHILS % (AUTO) 82.5 % (45.0-75.0); PLATELET COUNT 192 K/UL (150-450); RED CELL DISTRIBUTION WIDTH 13.5 % (11.6-14.8); WHITE BLOOD COUNT 13.2 K/UL (4.8-10.8)
[2019-12-02 17:32] LABS: ALANINE AMINOTRANSFERASE 42 U/L (12-78); ALBUMIN 2.2 G/DL (3.4-5.0); ALBUMIN/GLOBULIN RATIO 0.4 (1.0-2.7); ALKALINE PHOSPHATASE 83 U/L (46-116); ANION GAP 9 mmol/L (5-15); ASPARTATE AMINO TRANSFERASE 33 U/L (15-37); BILIRUBIN,TOTAL 0.2 MG/DL (0.2-1.0); BLOOD UREA NITROGEN 56 mg/dL (7-18); CALCIUM 8.8 MG/DL (8.5-10.1); CARBON DIOXIDE 30 MMOL/L (21-32); CHLORIDE 105 MMOL/L (98-107); CREATININE 6.2 MG/DL (0.55-1.30); POTASSIUM 3.5 MMOL/L (3.5-5.1); SODIUM 144 MMOL/L (136-145)
--- NOTE | 2019-12-02 17:45 | Progress Note ---
DATE: 12/02/2019 SUBJECTIVE: Blood pressure parameters still on low normal range. The patient is off most antihypertensives. She remains weak and withdrawn. She is pocketing food. She has no shortness of breath. She continues with daily wound care. OBJECTIVE: LUNGS: Clear. CARDIAC: Regular rhythm and rate. Normal S1, S2 with a fourth heart sound. ABDOMEN: Soft and nontender. There is no edema. LABORATORY DATA: No new lab studies. IMPRESSION: 1. Sepsis. 2. Infected decubitus. 3. Hypertensive heart disease, now with low range of blood pressures likely due to above. 4. End-stage renal disease. 5. Dementia with confusion. PLAN: 1. Continue to hold antihypertensives other than beta-franck. Antimicrobials wound care. Hemodialysis with ultrafiltration. 2. Follow up laboratory studies prior to discharge plan. Bulmaro Hester M.D. DR: Malinda JOB#: [id number] CC:
[2019-12-02 20:00] VITALS: BP 107/59
[2019-12-03] VITALS: BP 113/59
[2019-12-03 04:29] VITALS: BP 113/54
[2019-12-03] MEDS ORDERED: Heparin Sod 1000 units/ml 10ml IV PRN (06:00)
[2019-12-03 07:08] LABS: BASOPHILS % (AUTO) 0.5 % (0.0-2.0); EOSINOPHILS % (AUTO) 0.6 % (0.0-3.0); HEMATOCRIT 27.7 % (37.0-47.0); HEMOGLOBIN 8.6 G/DL (12.0-16.0); LYMPHOCYTES % (AUTO) 10.2 % (20.0-45.0); MEAN CORPUSCULAR VOLUME 91 FL (80-99); MONOCYTES % (AUTO) 6.7 % (1.0-10.0); NEUTROPHILS % (AUTO) 81.9 % (45.0-75.0); PLATELET COUNT 210 K/UL (150-450); RED BLOOD COUNT 3.03 M/UL (4.20-5.40); RED CELL DISTRIBUTION WIDTH 13.4 % (11.6-14.8); WHITE BLOOD COUNT 11.4 K/UL (4.8-10.8)
[2019-12-03 08:00] VITALS: BP 104/52
[2019-12-03] MEDS ORDERED: ASPIRIN81 MG ORAL (08:18)
[2019-12-03] MEDS ORDERED: OLANZAPINE2.5 MG ORAL (08:18)
[2019-12-03] MEDS ORDERED: HEPARIN SO5000 UNIT2 SUBQ (08:18)
[2019-12-03] MEDS ORDERED: NEPHROVITE1 TAB ORAL (08:18)
[2019-12-03] MEDS ORDERED: MEGACE ORA400 MG/10 ORAL (08:18)
[2019-12-03] MEDS ORDERED: LIPITOR10 MG ORAL (08:18)
[2019-12-03] MEDS ORDERED: METOPROLOL TART50 MG ORAL (08:18)
[2019-12-03] MEDS ORDERED: ZINC SULFATE220 M2 ORAL (08:18)
[2019-12-03] MEDS ORDERED: ASCORBIC ACID500 M4 ORAL (08:18)
[2019-12-03] MEDS: Metoprolol Tartrate 50mg tab ORAL SCH (09:00)
[2019-12-03] MEDS: Megace 400mg/10ml Susp ORAL SCH ×2 (09:34→18:21)
[2019-12-03] MEDS: Heparin 5000 units/ml inj SUBQ SCH (09:34)
[2019-12-03] MEDS: Aspirin Baby 81mg ORAL SCH (09:34)
[2019-12-03] MEDS: Zinc Sulfate 220mg ORAL SCH (09:40)
[2019-12-03] MEDS: Cefepime 500mg in D5W 55ml IVPB SCH (09:40)
[2019-12-03] MEDS: Ascorbic Acid 500mg tab ORAL SCH (09:40)
[2019-12-03] MEDS: Nephrovite tab (Rena-Vite) ORAL SCH (09:40)
--- NOTE | 2019-12-03 11:40 | Infectious Diseases Prog Note ---
Assessment/Plan Assessment/Plan antibiotics : cefepime A 1. leucocytosis resolved 2. COVID 19 negative 3. renal failure 4. hypertension 5. dementia 6. decubitus ulcers s/p debridement, ostectomy P 1. d/c cefepime 2. will follow up cultures Subjective ROS Limited/Unobtainable: Yes Allergies: Coded Allergies: No Known Allergies (Unverified , 02/27/19) Objective Last 24 Hour Vital Signs Date Time Temp Pulse Resp B/P (MAP) Pulse Ox O2 Delivery O2 Flow Rate FiO2 12/03/19 09:00 Room Air 12/03/19 08:00 97.2 82 20 104/52 (69) 98 12/03/19 04:29 97.2 86 16 113/54 (73) 98 12/03/19 00:00 98.2 88 20 113/59 (77) 97 12/02/19 21:00 Room Air 12/02/19 20:54 97 107/59 12/02/19 20:00 97.7 97 22 107/59 (75) 96 12/02/19 16:00 98.9 89 18 109/50 (69) 98 12/02/19 12:00 98.6 94 18 96/43 (60) 99 Height (Feet): 5 Height (Inches): 5 Weight (Pounds): 116 Respiratory/Chest: lungs clear Cardiovascular: normal rate, regular rhythm, no gallop/murmur Abdomen: soft, non tender Extremities: no edema Laboratory Tests Test 12/02/19 16:40 12/03/19 05:35 White Blood Count 13.2 K/UL (4.8-10.8) H 11.4 K/UL (4.8-10.8) H Red Blood Count 3.00 M/UL (4.20-5.40) L 3.03 M/UL (4.20-5.40) L Hemoglobin 8.5 G/DL (12.0-16.0) L 8.6 G/DL (12.0-16.0) L Hematocrit 27.0 % (37.0-47.0) L 27.7 % (37.0-47.0) L Mean Corpuscular Volume 90 FL (80-99) 91 FL (80-99) Mean Corpuscular Hemoglobin 28.5 PG (27.0-31.0) 28.4 PG (27.0-31.0) Mean Corpuscular Hemoglobin Concent 31.6 G/DL (32.0-36.0) L 31.1 G/DL (32.0-36.0) L Red Cell Distribution Width 13.5 % (11.6-14.8) 13.4 % (11.6-14.8) Platelet Count 192 K/UL (150-450) 210 K/UL (150-450) Mean Platelet Volume 6.2 FL (6.5-10.1) L 6.5 FL (6.5-10.1) Neutrophils (%) (Auto) 82.5 % (45.0-75.0) H 81.9 % (45.0-75.0) H Lymphocytes (%) (Auto) 10.1 % (20.0-45.0) L 10.2 % (20.0-45.0) L Monocytes (%) (Auto) 6.6 % (1.0-10.0) 6.7 % (1.0-10.0) Eosinophils (%) (Auto) 0.5 % (0.0-3.0) 0.6 % (0.0-3.0) Basophils (%) (Auto) 0.3 % (0.0-2.0) 0.5 % (0.0-2.0) Sodium Level 144 MMOL/L (136-145) Potassium Level 3.5 MMOL/L (3.5-5.1) Chloride Level 105 MMOL/L (98-107) Carbon Dioxide Level 30 MMOL/L (21-32) Anion Gap 9 mmol/L (5-15) Blood Urea Nitrogen 56 mg/dL (7-18) H Creatinine 6.2 MG/DL (0.55-1.30) H Estimat Glomerular Filtration Rate 8.0 mL/min (>60) Glucose Level 148 MG/DL (74-106) H Calcium Level 8.8 MG/DL (8.5-10.1) Total Bilirubin 0.2 MG/DL (0.2-1.0) Aspartate Amino Transf (AST/SGOT) 33 U/L (15-37) Alanine Aminotransferase (ALT/SGPT) 42 U/L (12-78) Alkaline Phosphatase 83 U/L (46-116) Total Protein 7.3 G/DL (6.4-8.2) Albumin 2.2 G/DL (3.4-5.0) L Globulin 5.1 g/dL Albumin/Globulin Ratio 0.4 (1.0-2.7) L Current Medications Medications (Trade) Dose Ordered Sig/Jeanne Route PRN Reason Start Time Stop Time Status Last Admin Dose Admin Acetaminophen (Tylenol) 650 mg Q4H PRN ORAL For Pain 11/25/19 08:00 12/25/19 07:59 11/25/19 11:20 Ascorbic Acid (Vitamin C) 500 mg DAILY ORAL 11/28/19 11:30 12/28/19 11:29 12/03/19 09:40 Aspirin (ASA) 81 mg DAILY ORAL 11/25/19 09:00 01/09/20 08:59 12/02/19 08:52 Atorvastatin Calcium (Lipitor) 10 mg BEDTIME ORAL 11/28/19 21:00 02/26/20 20:59 12/02/19 20:54 Cefepime HCl 500 mg/Dextrose 55 ml @ 110 mls/hr Q24H IVPB 12/01/19 09:00 12/07/19 08:59 12/03/19 09:40 Clonidine HCl (Catapres Tab) 0.1 mg Q4H PRN ORAL SBP above 160 11/26/19 23:15 02/24/20 23:14 Heparin Sodium (Porcine) (Heparin 5000 units/ml) 5,000 units EVERY 12 HOURS SUBQ 11/25/19 10:30 01/09/20 10:29 12/02/19 20:59 Heparin Sodium (Porcine) (Heparin Sod 1000 units/ml 10ml) 500 unit ONCE PRN IV HD 12/03/19 06:00 12/03/19 23:59 12/03/19 10:28 Megestrol Acetate (Megace) 400 mg TWICE A DAY ORAL 11/29/19 10:30 02/27/20 10:29 12/03/19 09:34 Metoprolol Tartrate (Lopressor) 50 mg Q12HR ORAL 12/01/19 09:00 02/29/20 08:59 12/02/19 20:54 Morphine Sulfate (Morphine Sulfate) 1 mg Q4H PRN IVP pain scale 1-3 11/27/19 14:30 12/04/19 14:29 Morphine Sulfate (Morphine Sulfate) 2 mg Q4H PRN IVP pain scale 4-6 11/27/19 14:30 12/04/19 14:29 Morphine Sulfate (Morphine Sulfate) 4 mg Q4H PRN IVP pain score 7-10 11/27/19 14:30 12/04/19 14:29 Olanzapine (ZyPREXA) 2.5 mg Q6H PRN ORAL agitation 11/27/19 15:45 01/11/20 15:44 Sodium Chloride 1,000 ml @ 500 mls/hr Q2H PRN IVLG sbp<90 during hd 12/03/19 06:00 12/03/19 23:59 Vitamin B Complex/ Vit C/Folic Acid (Nephrovite) 1 tab DAILY ORAL 11/28/19 11:30 12/28/19 11:29 12/03/19 09:40 Zinc Sulfate (Zinc Sulfate) 220 mg DAILY ORAL 11/28/19 11:30 02/26/20 11:29 12/03/19 09:40 Ovidio Wilson MD Dec 03, 2019 11:40
[2019-12-03 12:00] VITALS: BP 113/54
--- NOTE | 2019-12-03 12:44 | Surgery Progress Note ---
Surgery Progress Note Subjective Procedure Performed Excisional debridement of sacral decubitus ulcer 10 cm x 8 cm x 4 cm deep down to bone with ostectomy Additional Comments leukocytosis improving no n/v/f/c comfortable on air mattress dressings going well Objective Last 24 Hour Vital Signs Date Time Temp Pulse Resp B/P (MAP) Pulse Ox O2 Delivery O2 Flow Rate FiO2 12/03/19 09:00 Room Air 12/03/19 08:00 97.2 82 20 104/52 (69) 98 12/03/19 04:29 97.2 86 16 113/54 (73) 98 12/03/19 00:00 98.2 88 20 113/59 (77) 97 12/02/19 21:00 Room Air 12/02/19 20:54 97 107/59 12/02/19 20:00 97.7 97 22 107/59 (75) 96 12/02/19 16:00 98.9 89 18 109/50 (69) 98 I&O Intake and Output 12/02/19 12/03/19 19:00 07:00 Intake Total 520 ml Balance 520 ml Other 520 ml # Bowel Movements 1 Dressing: other Wound: other Drains: other Cardiovascular: RSR Respiratory: decreased breath sounds Abdomen: soft, non-tender, present bowel sounds Extremities: no tenderness, no cyanosis Laboratory Tests Test 12/02/19 16:40 12/03/19 05:35 White Blood Count 13.2 K/UL (4.8-10.8) H 11.4 K/UL (4.8-10.8) H Red Blood Count 3.00 M/UL (4.20-5.40) L 3.03 M/UL (4.20-5.40) L Hemoglobin 8.5 G/DL (12.0-16.0) L 8.6 G/DL (12.0-16.0) L Hematocrit 27.0 % (37.0-47.0) L 27.7 % (37.0-47.0) L Mean Corpuscular Volume 90 FL (80-99) 91 FL (80-99) Mean Corpuscular Hemoglobin 28.5 PG (27.0-31.0) 28.4 PG (27.0-31.0) Mean Corpuscular Hemoglobin Concent 31.6 G/DL (32.0-36.0) L 31.1 G/DL (32.0-36.0) L Red Cell Distribution Width 13.5 % (11.6-14.8) 13.4 % (11.6-14.8) Platelet Count 192 K/UL (150-450) 210 K/UL (150-450) Mean Platelet Volume 6.2 FL (6.5-10.1) L 6.5 FL (6.5-10.1) Neutrophils (%) (Auto) 82.5 % (45.0-75.0) H 81.9 % (45.0-75.0) H Lymphocytes (%) (Auto) 10.1 % (20.0-45.0) L 10.2 % (20.0-45.0) L Monocytes (%) (Auto) 6.6 % (1.0-10.0) 6.7 % (1.0-10.0) Eosinophils (%) (Auto) 0.5 % (0.0-3.0) 0.6 % (0.0-3.0) Basophils (%) (Auto) 0.3 % (0.0-2.0) 0.5 % (0.0-2.0) Sodium Level 144 MMOL/L (136-145) Potassium Level 3.5 MMOL/L (3.5-5.1) Chloride Level 105 MMOL/L (98-107) Carbon Dioxide Level 30 MMOL/L (21-32) Anion Gap 9 mmol/L (5-15) Blood Urea Nitrogen 56 mg/dL (7-18) H Creatinine 6.2 MG/DL (0.55-1.30) H Estimat Glomerular Filtration Rate 8.0 mL/min (>60) Glucose Level 148 MG/DL (74-106) H Calcium Level 8.8 MG/DL (8.5-10.1) Total Bilirubin 0.2 MG/DL (0.2-1.0) Aspartate Amino Transf (AST/SGOT) 33 U/L (15-37) Alanine Aminotransferase (ALT/SGPT) 42 U/L (12-78) Alkaline Phosphatase 83 U/L (46-116) Total Protein 7.3 G/DL (6.4-8.2) Albumin 2.2 G/DL (3.4-5.0) L Globulin 5.1 g/dL Albumin/Globulin Ratio 0.4 (1.0-2.7) L Assessment Post-op Diagnosis 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 Given her current condition and these findings I spoke with the brother medical teams and have received consent for excisional debridement of sacral decubitus ulcer possible ostectomy bone biopsy. We will schedule accordingly. Care plan initiated. Will follow with recommendations thank you Nutritional optimization DAILY ESTIMATED NEEDS: Needs based on Renal, HD, wound, 44.1kg 30-40 kcals/kg 0547-3505 total kcals 1.25-2 g protein/kg 55-88 g total protein Fluid per MD, on HD NUTRITION DIAGNOSIS: Increased kcal/prot intake needs R/T renal dysfunction, underweight status, wound healing as evidenced by ESRD dx, on HD, pt is 72% of [place] Body Weight admitted w/ sacral open wound. CURRENT DIET:RENAL PO DIET RECOMMENDATIONS: RENAL/ texture as tolerated or per ANALYSIS DIRECTOR ADDITIONAL RECOMMENDATIONS: * Recalibrate bed scale -> Bed scale currently reads 165 lbs (Last HD 11/24/19 wt per SNF 44.1kg/97 lbs ) * Nepro 1 tetra penny TID w/ meals: 425kcal/19g prot per penny * Consider ANALYSIS DIRECTOR eval for appropriate texture: h/o CVA * Wound healing: Add SIS BID (f/up w/ WC eval) * Snacks in b/w meals as tolerated * 1:1 feeds * Consult for non oral feeds if not alert for oral po intake (8) Leukocytosis Assessment & Plan: 74F leukocytosis, abnormal labs, failure to thrive, malnutrition, DTI patient needs nutritional optimization she has a foul smelling sacral DTI that is large and would benefit from debridement will discuss with medical teams for consideration and family for consent thank you Jesse Quinn Dec 03, 2019 12:44
--- NOTE | 2019-12-03 14:53 | Nephrology Progress Note ---
Assessment/Plan Problem List: (1) ESRD (end stage renal disease) (2) CVA, old, cognitive deficits (3) Dementia (4) Weakness (5) Hypertensive nephrosclerosis (6) Anemia in chronic kidney disease (7) Deep tissue injury (8) Leukocytosis Plan fevers, possible sepsis likely from decubitus, debridement done , HD 12/03 dc norvasc low bp,continue antibiotics Subjective ROS Limited/Unobtainable: Yes Objective Objective Last 24 Hour Vital Signs Date Time Temp Pulse Resp B/P (MAP) Pulse Ox O2 Delivery O2 Flow Rate FiO2 12/03/19 12:00 97.0 92 20 113/54 (73) 97 12/03/19 09:00 Room Air 12/03/19 08:00 97.2 82 20 104/52 (69) 98 12/03/19 04:29 97.2 86 16 113/54 (73) 98 12/03/19 00:00 98.2 88 20 113/59 (77) 97 12/02/19 21:00 Room Air 12/02/19 20:54 97 107/59 12/02/19 20:00 97.7 97 22 107/59 (75) 96 12/02/19 16:00 98.9 89 18 109/50 (69) 98 Intake and Output 12/02/19 12/03/19 19:00 07:00 Intake Total 520 ml Balance 520 ml Other 520 ml # Bowel Movements 1 Laboratory Tests 12/02/19 16:40: White Blood Count 13.2H, Red Blood Count 3.00L, Hemoglobin 8.5L, Hematocrit 27.0L, Mean Corpuscular Volume 90, Mean Corpuscular Hemoglobin 28.5, Mean Corpuscular Hemoglobin Concent 31.6L, Red Cell Distribution Width 13.5, Platelet Count 192, Mean Platelet Volume 6.2L, Neutrophils (%) (Auto) 82.5H, Lymphocytes (%) (Auto) 10.1L, Monocytes (%) (Auto) 6.6, Eosinophils (%) (Auto) 0.5, Basophils (%) (Auto) 0.3, Sodium Level 144, Potassium Level 3.5, Chloride Level 105, Carbon Dioxide Level 30, Anion Gap 9, Blood Urea Nitrogen 56H, Creatinine 6.2H, Estimat Glomerular Filtration Rate 8.0, Glucose Level 148H, Calcium Level 8.8, Total Bilirubin 0.2, Aspartate Amino Transf (AST/SGOT) 33, Alanine Aminotransferase (ALT/SGPT) 42, Alkaline Phosphatase 83, Total Protein 7.3, Albumin 2.2L, Globulin 5.1, Albumin/Globulin Ratio 0.4L 12/03/19 05:35: White Blood Count 11.4H, Red Blood Count 3.03L, Hemoglobin 8.6L, Hematocrit 27.7L, Mean Corpuscular Volume 91, Mean Corpuscular Hemoglobin 28.4, Mean Corpuscular Hemoglobin Concent 31.1L, Red Cell Distribution Width 13.4, Platelet Count 210, Mean Platelet Volume 6.5, Neutrophils (%) (Auto) 81.9H, Lymphocytes (%) (Auto) 10.2L, Monocytes (%) (Auto) 6.7, Eosinophils (%) (Auto) 0.6, Basophils (%) (Auto) 0.5 Height (Feet): 5 Height (Inches): 5 Weight (Pounds): 116 General Appearance: lethargic, confused EENT: normal ENT inspection Neck: normal alignment Cardiovascular: regular rhythm Respiratory/Chest: lungs clear, normal breath sounds Abdomen: non tender Extremities: no edema 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
[2019-12-03 16:00] VITALS: BP 113/59
--- NOTE | 2019-12-03 22:58 | Psych Consult Progress Note ---
Psychiatry Progress Note Psychiatry Progress Note Subjective the pt is more alert disoriented Neurological/Psychiatric: Reports: anxiety, depressed, emotional problems Allergies: Coded Allergies: No Known Allergies (Unverified , 02/27/19) Objective Data Height (Feet): 5 Height (Inches): 5 Weight (Pounds): 116 General Appearance: WD/WN, no apparent distress, alert, confused, thin Appearance: no abnormalities noted Behavior Mannerisms: poor eye contact Mental Status Exam - Affect: blunted Mental Status Exam - Mood: depressed Speech: aphasic Mental Status Exam - Thought P: confusion Mental Status Exam - Suicidal: not present Assessment/Plan Problem List: (1) acute toxic encephalopathy Status: stable, not improved Assessment/Plan: dc lexapro may benefit from low dose antipsychotics treat the underlying medical issues Binh Baltazar MD Dec 03, 2019 22:58
--- NOTE | 2019-12-03 22:59 | Psych Consult Progress Note ---
Psychiatry Progress Note Psychiatry Progress Note Subjective 12/02/19 Neurological/Psychiatric: Reports: anxiety, depressed Allergies: Coded Allergies: No Known Allergies (Unverified , 02/27/19) Objective Data Height (Feet): 5 Height (Inches): 5 Weight (Pounds): 116 General Appearance: no apparent distress, alert, confused Appearance: no abnormalities noted Behavior Mannerisms: poor eye contact Mental Status Exam - Affect: blunted Mental Status Exam - Mood: anxious Mental Status Exam - Thought P: no abnormalities Mental Status Exam - Suicidal: not present Assessment/Plan Problem List: (1) acute toxic encephalopathy Status: stable, not improved Assessment/Plan: dc lexapro may benefit from low dose antipsychotics treat the underlying medical issues Binh Baltazar MD Dec 03, 2019 22:59
--- NOTE | 2019-12-03 23:29 | Progress Note ---
DATE: 12/03/2019 CARDIOLOGY PROGRESS NOTE SUBJECTIVE: The patient still with low range blood pressure readings, alert, no distress. Oxygen saturation 96% to 98% on room air. PHYSICAL EXAMINATION: VITAL SIGNS: Blood pressure 113/54, pulse 92, respiratory rate 20, no fevers. LUNGS: Clear. CARDIAC: Regular. Normal S1, S2 with a fourth heart sound. ABDOMEN: Soft. EXTREMITIES: No edema. LABORATORY AND DIAGNOSTIC DATA: White count 11.4, hemoglobin 8.6. Sodium 144, potassium 3.5, bicarb 30, BUN 56, creatinine 6.2. Albumin 2.2. IMPRESSION: 1. Sepsis. 2. Decubitus infection. 3. Toxic and metabolic encephalopathies. 4. End-stage renal disease. 5. Hypertensive heart disease. 6. Chronic diastolic congestive heart failure. 7. Recovered shock. PLAN: 1. Complete recovery as an outpatient. 2. Continue to hold antihypertensives. 3. Maintain beta-franck alone. 4. Anti-platelet therapy and statin drug. 5. Once blood pressure parameters advance toward baseline, may expect need for additional antihypertensive therapy. Bulmaro Hester M.D. DR: Evie JOB#: [id number] CC:
--- NOTE | 2019-12-04 01:45 | Discharge Summary ---
DATE OF ADMISSION: 11/24/2019 DATE OF DISCHARGE: 12/03/2019 ADMISSION DIAGNOSES: 1. Altered mental status 2. Sacral wound. 3. Severe protein malnutrition. 4. End-stage renal disease. 5. History of psychosis and dementia. 6. Hyperlipidemia. 7. Hypertensive heart disease. DISCHARGE DIAGNOSES: 1. Altered mental status 2. Sacral wound. 3. Severe protein malnutrition. 4. End-stage renal disease. 5. History of psychosis and dementia. 6. Hyperlipidemia. 7. Hypertensive heart disease. 8. Debridement of sacral wound. HOSPITAL COURSE: The patient is a 74-year-old female who presented with complaints of altered mental status. She had a head CT that was negative. The rest of her work was unremarkable. She was noted to have a large sacral wound. Surgical consultation was obtained. The patient underwent a debridement. She was started on IV antibiotics for a wound infection. She started to improve and her p.o. intake did improve on discharge. She was stable for discharge. She completed all of her antibiotics. She will be discharged back to the retirement facility to close followup. DISCHARGE MEDICATIONS: Please see discharge medication list for discharge medications. DIET: Renal diet. ACTIVITY: Ad cristóbal. FOLLOWUP: The patient will follow up in one to two days at retirement facility. Freddy Quevedo M.D. DR: Andre JOB#: [id number] CC:
== END 2019-12-03 20:10 | DRG 853 ==
LOC: EDBD 19:15 → EMR 21:45 → 4E 21:52 → EDBEDREQ 11-25 07:11 → EDBEDREQSVC 11-25 07:11 → EDBEDREQ 11-25 09:30
PROC: 5A1D70Z Performance of Urinary Filtration, Intermittent, Less than 6 Hours Per Day (ICD-10-PCS; 2019-11-26)
PROC: 0QB10ZZ Excision of Sacrum, Open Approach (ICD-10-PCS; principal; 2019-11-27 11:30)
DX: A41.9 Sepsis, unspecified organism (principal); L89.154 Pressure ulcer of sacral region, stage 4; N18.6 End stage renal disease; G92 Toxic encephalopathy; E43 Unspecified severe protein-calorie malnutrition; I50.33 Acute on chronic diastolic (congestive) heart failure; I12.0 Hypertensive chronic kidney disease with stage 5 chronic kidney disease or end stage renal disease; N17.9 Acute kidney failure, unspecified; I69.354 Hemiplegia and hemiparesis following cerebral infarction affecting left non-dominant side; I13.2 Hypertensive heart and chronic kidney disease with heart failure and with stage 5 chronic kidney disease, or end stage renal disease; Z68.1 Body mass index [BMI] 19.9 or less, adult; E11.22 Type 2 diabetes mellitus with diabetic chronic kidney disease; F03.90 Unspecified dementia, unspecified severity, without behavioral disturbance, psychotic disturbance, mood disturbance, and anxiety; E78.5 Hyperlipidemia, unspecified; Z99.2 Dependence on renal dialysis; Z79.82 Long term (current) use of aspirin; F99 Mental disorder, not otherwise specified; I27.20 Pulmonary hypertension, unspecified; F01.50 Vascular dementia, unspecified severity, without behavioral disturbance, psychotic disturbance, mood disturbance, and anxiety; D63.1 Anemia in chronic kidney disease; I69.319 Unspecified symptoms and signs involving cognitive functions following cerebral infarction; Z22.322 Carrier or suspected carrier of Methicillin resistant Staphylococcus aureus
CPT/HCPCS: 36415; 71045; 80048; 80053; 80061; 80202; 82550; 82553; 83605; 83735; 83880; 84100; 84484; 85007; 85025; 86706; 87040; 87081; 93005; 94003; 94150; 96361; 96365; 99285; J7030; U0002

== ENCOUNTER 2019-12-13 16:23 | Inpatient (IN) | payer MEDICARE, OTHER ==
[2019-12-13] VITALS: BP 106/57
[~2019-12-13] VITALS: Ht 165.1 cm; Wt 51.3 kg
[~2019-12-13 16:23] MED LIST changes: +ASCORBIC ACID500 M4 ORAL; +ASPIR 8181 MG ORAL; +ERGOCALCIFEROL1 GM MC; +LIPITOR10 MG ORAL; +MEGACE ORA400 MG/10 ORAL; +METOPROLOL TART50 MG ORAL; +NEPHROVITE1 TAB ORAL; +OLANZAPINE2.5 MG ORAL; +ONDANSETRON HCL8 M1 PO; +VITAMIN D250 MCG PO; +ZINC SULFATE220 M2 ORAL; +ZOFRAN4 MG ORAL
[2019-12-13] MEDS ORDERED: HYDROcodone/Acetamin 10/325 tab ORAL PRN (20:00)
[2019-12-13] MEDS ORDERED: OLANZapine 2.5mg tab ORAL PRN (20:00)
[2019-12-13] MEDS ORDERED: Milk of Magnesia 30ml Ud ORAL PRN (20:00)
--- NOTE | 2019-12-13 20:00 | NUR ---
NURSE NOTES: Patient in bed. Awake, alert x 1. Patient was brought in by transport during shift change. No iv site. Belongings noted. Bed in low and locked position. Respiration is even and unlabored. Noted with left upper arm AV shunt. Noted with sacral wound, stage 4, tunneling noted. Bilateral heels Deep tissue injury. Left hip noted with wound. Dressings applied. Pictures taken. Call light is at bedside. Kept clean and comfortable. Will continue plan of care.
[2019-12-13] MEDS: Atorvastatin 80mg tab ORAL SCH (21:00)
[2019-12-13] MEDS: Metoprolol Tartrate 50mg tab ORAL SCH (21:00)
[2019-12-13] MEDS ORDERED: Heparin 5000 units/ml inj SUBQ SCH (21:00)
[2019-12-13 21:13] LABS: BASOPHILS % (AUTO) 0.8 % (0.0-2.0); EOSINOPHILS % (AUTO) 0.6 % (0.0-3.0); HEMATOCRIT 29.3 % (37.0-47.0); HEMOGLOBIN 9.3 G/DL (12.0-16.0); LYMPHOCYTES % (AUTO) 10.3 % (20.0-45.0); MEAN CORPUSCULAR VOLUME 92 FL (80-99); MONOCYTES % (AUTO) 6.7 % (1.0-10.0); NEUTROPHILS % (AUTO) 81.5 % (45.0-75.0); PLATELET COUNT 287 K/UL (150-450); RED BLOOD COUNT 3.19 M/UL (4.20-5.40); RED CELL DISTRIBUTION WIDTH 15.2 % (11.6-14.8)
--- NOTE | 2019-12-13 21:30 | NUR ---
NURSE NOTES: Spoke to Dr. Quevedo, no swabs needed at the moment. Orders received.
[2019-12-13 21:31] LABS: ALANINE AMINOTRANSFERASE 35 U/L (12-78); ALBUMIN 2.1 G/DL (3.4-5.0); ALBUMIN/GLOBULIN RATIO 0.4 (1.0-2.7); ALKALINE PHOSPHATASE 104 U/L (46-116); ANION GAP 3 mmol/L (5-15); ASPARTATE AMINO TRANSFERASE 30 U/L (15-37); BILIRUBIN,TOTAL 0.5 MG/DL (0.2-1.0); BLOOD UREA NITROGEN 20 mg/dL (7-18); CALCIUM 9.3 MG/DL (8.5-10.1); CARBON DIOXIDE 36 MMOL/L (21-32); CHLORIDE 98 MMOL/L (98-107); CREATININE 2.8 MG/DL (0.55-1.30); POTASSIUM 3.8 MMOL/L (3.5-5.1); SODIUM 137 MMOL/L (136-145)
[2019-12-13 23:49] VITALS: BP 112/56
[2019-12-14 04:00] VITALS: BP 113/56
--- NOTE | 2019-12-14 07:26 | NUR ---
HAND-OFF: Report given to MICHAEL Harris.
--- NOTE | 2019-12-14 07:30 | NUR ---
NURSE NOTES: Received patient in bed. Awake, nonverbal. Patient opens eyes with name calling. On room air, respirations unlabored. No signs of pain at this time. IV in the left wrist, site intact. Patient is a high fall risk d/t Adan fall scale of 50. Patient placed close to the nurses station for safety, yellow socks on, yellow gown on, bed alarm placed on high sensitivity. Patient oriented to room and surroundings and call light. Unable to return demonstration.
[2019-12-14 08:00] VITALS: BP 127/60
--- NOTE | 2019-12-14 08:19 | NUR ---
NURSE NOTES: [facility] contacted for last clonidine patch application date. No response.
--- NOTE | 2019-12-14 08:48 | NUR ---
NURSE NOTES: contacted for COVID swab reason. Swab to be done for GT placement.
--- NOTE | 2019-12-14 09:15 | History and Physical Report ---
DATE OF ADMISSION: 12/13/2019 CHIEF COMPLAINT: Failure to thrive, severe protein malnutrition, large sacral wound. HISTORY OF PRESENT ILLNESS: The patient is an unfortunate 74-year-old female. She has a history of dementia, depression, end-stage renal disease on chronic hemodialysis, and hypertension. She was recently hospitalized for a large sacral wound. She underwent a debridement, was discharged back to care home facility. She had not been eating well at the care home facility. She was placed on appetite stimulants without any improvement. Because of her p.o. intake, she is now admitted for evaluation for possible G-tube placement. The patient is confused at baseline and is unable to provide any additional history. According to her brother, though that he would like a G-tube if indicated. There are no reports of any fevers or chills. No cough. PAST MEDICAL HISTORY: As above. PAST SURGICAL HISTORY: Includes a recent wound debridement and AV fistula. CURRENT MEDICATIONS: Reconciled and reviewed. ALLERGIES: None. FAMILY HISTORY: None. SOCIAL HISTORY: There is no known history of tobacco, ethanol, or drugs. REVIEW OF SYSTEMS: From the patient is unobtainable as she is confused at baseline. PHYSICAL EXAMINATION: VITAL SIGNS: Temperature 98.7, pulse 96, respirations 20, and blood pressure 113/56. GENERAL: The patient is well developed, in no apparent distress. She is poorly responsive. HEENT: Head is normocephalic and atraumatic. Oropharynx clear. Mucous membranes moist. NECK: Supple. HEART: Regular rate and rhythm without murmurs, rubs, or gallops. LUNGS: Clear to auscultation bilaterally. ABDOMEN: Soft, nontender, and nondistended. EXTREMITIES: Without clubbing or cyanosis. There is a large stage IV sacral wound that is mostly pink. There is no purulent discharge or odor noted. LABORATORY DATA: White count 10, hemoglobin 9.3, platelet count of 287,000. Sodium 137, potassium 3.8, BUN 20, creatinine 2.8. ASSESSMENT: This is a 74-year-old female with a history of hypertension, end-stage renal disease, and history of large infected sacral wound status post debridement, admitted with complaints of anorexia and severe protein malnutrition secondary to poor p.o. intake. She has failed to respond to appetite stimulants at the care home facility. PLAN: 1. GI consultation for G-tube placement. 2. Cardiology and Renal consults will also be obtained. 3. We will check an EKG and a chest x-ray. Add a COVID swab for clearance for possible G-tube placement. Freddy Quevedo M.D. DR: JESSICA JOB#: [id number] CC:
[2019-12-14] MEDS: Aspirin Baby 81mg ORAL SCH (09:16)
[2019-12-14] MEDS: Nephrovite tab (Rena-Vite) ORAL SCH (09:16)
[2019-12-14] MEDS: Megace 400mg/10ml Susp ORAL SCH ×2 (09:17→17:45)
[2019-12-14] MEDS: Ascorbic Acid 500mg tab ORAL SCH (09:17)
[2019-12-14] MEDS: Zinc Sulfate 220mg ORAL SCH (09:17)
[2019-12-14] MEDS: Heparin 5000 units/ml inj SUBQ SCH ×2 (09:28→20:27)
[2019-12-14] MEDS: Metoprolol Tartrate 50mg tab ORAL SCH ×2 (09:49→20:17)
--- NOTE | 2019-12-14 10:03 | NUR ---
NURSE NOTES: COVID rapid swab done and sent down to lab.
[2019-12-14 12:00] VITALS: BP 119/57
--- NOTE | 2019-12-14 12:05 | NUR ---
RD ASSESSMENT & RECOMMENDATIONS SEE CARE ACTIVITY FOR COMPLETE ASSESSMENT DAILY ESTIMATED NEEDS: Needs based on Renal, HD, wound, 44.6kg 30-40 kcals/kg 1426-0892 total kcals 1.25-2 g protein/kg 56-89 g total protein Fluid per MD, on HD NUTRITION DIAGNOSIS: Increased kcal/prot intake needs R/T renal dysfunction, underweight status, wound healing as evidenced by ESRD dx, on HD, pt is 73% of [place] Body Weight w/ recent sacral stage 4 wound, s/p surgical debridement. CURRENT DIET:RENAL puree PO DIET RECOMMENDATIONS: RENAL/ texture as tolerated or per CABINET PROFESSIONAL ENTERAL NUTRITION RECOMMENDATIONS: Nepro w/ goal of 40ml/hr x24 hrs to provide 960ml, 1728 kcal, 78g pro, 698ml free H2O - As medically able w/ GI access, start Nepro @20ml/hr for 6 hrs, advance 5ml/hr q4 hrs to goal. - Flush per MD, on HD - HOB over 30 degrees ADDITIONAL RECOMMENDATIONS: * TF recs as above * Nepro 1 tetra penny TID w/ oral diet: 425kcal/19g prot per penny 1:1 feeds on oral diet, snacks in b/w meals as tolerated * Wound healing: SIS BID + Nephrovite qdaily Vit C 250 mg BID (or per nephro), ZnSO4 220mg qd (or per Nephro) * Maintain calibrated bed scale wts .
--- NOTE | 2019-12-14 12:30 | Consultation ---
DATE OF CONSULTATION: 12/14/2019 NEPHROLOGY CONSULTATION CONSULTING PHYSICIAN: Dylon Stringer MD. REFERRING PHYSICIAN: Freddy Quevedo MD. REASON FOR CONSULTATION: End-stage renal disease. HISTORY OF PRESENT ILLNESS: The patient is a 74-year-old lady with end-stage renal disease, hypertension, CVA with left-sided weakness. She had a recent debridement of sacral decubitus. She has been eating very poorly and nutrition is suffering and she is admitted now for consideration of her gastrostomy tube. The patient is not verbal and unable to give a history. PAST SURGICAL HISTORY: AV fistula in the left arm, debridement of decubitus. MEDICATIONS: From the [facility] include Tylenol, amlodipine, ascorbic acid, aspirin, atorvastatin, clonidine, ergocalciferol, Lexapro, subcutaneous heparin, hydralazine, [place], magnesium hydroxide, Megace, metoprolol, olanzapine, ondansetron, Nephro-[place] and zinc. SYSTEM REVIEW: The patient is unable. PHYSICAL EXAMINATION: GENERAL: The patient is lying in bed, eyes open, awake, but nonverbal. VITAL SIGNS: Temperature 97.9, pulse 79, respiratory rate 18, blood pressure 127/60. HEAD, EYES, EARS, NOSE, AND THROAT: Sclerae are nonicteric. Oral mucosa slightly dry. NECK: No adenopathy. LUNGS: Clear. HEART: Regular rhythm. I hear no murmur. ABDOMEN: Soft without organomegaly or masses. EXTREMITIES: Show muscle wasting. No edema. There is left upper arm AV fistula with a good thrill. SKIN: Decubitus is not examined at this time. NEUROLOGIC: There is a left hemiparesis and she is nonverbal. PERTINENT LABORATORY DATA: White count 10,000, hemoglobin 9.3. Sodium 137, potassium 3.8, BUN 20, creatinine 2.8. IMPRESSION: 1. End-stage renal disease. 2. [id number] protein-calorie malnutrition. 3. History of CVA. 4. History of hypertension. 5. History of sacral decubitus. 6. Failure to thrive. 7. Poor oral intake. PLAN: Maintenance dialysis will be ordered. We will put hold parameters on her blood pressure medicines with her blood pressures to be lower than in the past. We will watch her closely in view of her comorbidities and adjust medicines for end-stage renal disease. Dylon Stringer M.D. DR: JASMYNE JOB#: [id number] CC:
--- NOTE | 2019-12-14 14:04 | NUR ---
NURSE NOTES: Dr. Quevedo notified of EKG results. Awaiting response.
--- NOTE | 2019-12-14 14:30 | Consultation ---
History of Present Illness General Date patient seen: Dec 14, 2019 Present Illness HPI This is a very unfortunate 74-year-old female well-known to me from prior admission and surgery who has a history of dementia depression end-stage renal disease on chronic hemodialysis hypertension large sacral decubitus ulcer stage IV who was recently admitted and status post debridement with local care plan. She has been doing well and discharged to a nursing facility from the hospital but has been noted to be having minimal poor oral intake despite appetite set stimulants in the [facility]. She is admitted for severe malnutrition BMI 17 hypoalbuminemia and considerations of feeding tube placement. On admission large wound requiring care and management surgery called to eval and assist with care patient seen patient evaluate chart reviewed Allergies: Coded Allergies: No Known Allergies (Unverified , 02/27/19) COVID-19 Screening Contact w/high risk pt: No Recent Travel to affected area: No Experienced COVID-19 symptoms?: No Medication History Scheduled Amlodipine Besylate (Norvasc), 10 MG ORAL DAILY Ascorbic Acid* (Ascorbic Acid*), 500 MG ORAL DAILY Aspirin* (Aspirin*), 81 MG ORAL DAILY Atorvastatin (Lipitor), 80 MG ORAL BEDTIME Clonidine (Catapres-Tts 1), 1 PATCH TDERMAL QWEEK Ergocalciferol (Vitamin D2) (Vitamin D2), 50,000 UNITS PO QWEEK, (Reported) Escitalopram Oxalate* (Lexapro*), 10 MG ORAL DAILY Heparin Sod (Porcine) (Heparin Sodium*), 5,000 UNITS SUBQ EVERY 12 HOURS, ( Reported) Hydralazine Hcl* (Hydralazine Hcl*), 100 MG ORAL EVERY 8 HOURS, (Reported) Megestrol Acetate (Megestrol Acetate), 400 MG ORAL TWICE A DAY Metoprolol Tartrate* (Metoprolol Tartrate*), 50 MG ORAL Q12HR Vitamin B Cmplx/Vit C/Folic AC (Nephro-Viet Tablet), 1 TAB ORAL DAILY Zinc Sulfate (Zinc Sulfate), 220 MG ORAL DAILY Scheduled PRN Acetaminophen* (Acetaminophen 325MG Tablet*), 650 MG ORAL Q4H PRN for For Pain, (Reported) Hydrocodone Bit/Acetaminophen 10-325* ([place] 10-325*), 1 TAB ORAL Q4H PRN for For Pain, (Reported) Magnesium Hydroxide* (Milk Of Magnesia*), 30 ML ORAL DAILY PRN for Constipation, (Reported) Olanzapine (Olanzapine), 2.5 MG ORAL Q6H PRN Ondansetron Hcl (Ondansetron Hcl), 8 MG PO DAILY PRN for Nausea & Vomiting, ( Reported) Patient History Limited by: medical condition History Provided By: Medical Record, PMD Healthcare decision maker Resuscitation status Advanced Directive on File Past Medical/Surgical History Past Medical/Surgical History: (1) ESRD (end stage renal disease) (2) CVA, old, cognitive deficits (3) Dementia (4) Weakness (5) Hypertensive nephrosclerosis (6) Anemia in chronic kidney disease (7) Deep tissue injury (8) Leukocytosis (9) acute toxic encephalopathy Review of Systems Review of Symptoms General ROS: no weight loss or fever Psychological ROS: no depression or mood changes, no memory loss Ophthalmic ROS: no visual changes or eye irritation ENT ROS: no nasal congestion, hearing loss, dizziness Allergy and Immunology ROS: no allergic symptoms or urticaria Hematological and Lymphatic ROS: no swollen glands, unusual bleeding or bruising Endocrine ROS: no polyuria, polydipsia, weight changes, temperature intolerance Respiratory ROS: no cough, shortness of breath, or wheezing Cardiovascular ROS: no chest pain or dyspnea on exertion Gastrointestinal ROS: denies abdominal pain, bright red blood in stool. Musculoskeletal ROS: no myalgias or arthralgias Neurological ROS: no TIA or stroke symptoms Dermatological ROS: no new or changing skin lesions, rashes or pruritis Limited given her baseline medical condition Physical Exam Physical Exam General appearance: alert, no distress, appears stated age Head: Normocephalic, without obvious abnormality, atraumatic Eyes: conjunctivae/corneas clear. PERRL, EOM's intact. Fundi benign Throat: Lips, mucosa, and tongue normal. Teeth and gums normal Neck: supple, symmetrical, trachea midline, no adenopathy, thyroid: not enlarged, symmetric, no tenderness/mass/nodules, no carotid bruit and no JVD Lungs: clear to auscultation bilaterally Heart: regular rate and rhythm, S1, S2 normal, no murmur, click, rub or gallop Abdomen: soft, non-tender. Bowel sounds normal. No masses, no organomegaly Extremities: extremities normal, atraumatic, no cyanosis or edema Pulses: 2+ and symmetric Skin: Skin seebelow Neurologic: Grossly normal Last 24 Hour Vital Signs Date Time Temp Pulse Resp B/P (MAP) Pulse Ox O2 Delivery O2 Flow Rate FiO2 12/14/19 12:00 97.5 82 18 119/57 (77) 99 12/14/19 09:49 79 127/60 12/14/19 09:49 79 127/60 12/14/19 09:00 Room Air 12/14/19 08:00 97.9 79 18 127/60 (82) 96 12/14/19 04:00 97.0 96 20 113/56 (75) 99 12/13/19 23:49 97.0 99 22 112/56 (74) 97 12/13/19 21:00 106 106/57 12/13/19 20:39 Room Air Intake and Output 12/13/19 12/14/19 19:00 07:00 Intake Total 120 ml Balance 120 ml Intake Oral 120 ml # Bowel Movements 1 Laboratory Tests Test 12/13/19 21:05 White Blood Count 10.0 K/UL (4.8-10.8) Red Blood Count 3.19 M/UL (4.20-5.40) L Hemoglobin 9.3 G/DL (12.0-16.0) L Hematocrit 29.3 % (37.0-47.0) L Mean Corpuscular Volume 92 FL (80-99) Mean Corpuscular Hemoglobin 29.2 PG (27.0-31.0) Mean Corpuscular Hemoglobin Concent 31.8 G/DL (32.0-36.0) L Red Cell Distribution Width 15.2 % (11.6-14.8) H Platelet Count 287 K/UL (150-450) Mean Platelet Volume 6.1 FL (6.5-10.1) L Neutrophils (%) (Auto) 81.5 % (45.0-75.0) H Lymphocytes (%) (Auto) 10.3 % (20.0-45.0) L Monocytes (%) (Auto) 6.7 % (1.0-10.0) Eosinophils (%) (Auto) 0.6 % (0.0-3.0) Basophils (%) (Auto) 0.8 % (0.0-2.0) Sodium Level 137 MMOL/L (136-145) Potassium Level 3.8 MMOL/L (3.5-5.1) Chloride Level 98 MMOL/L (98-107) Carbon Dioxide Level 36 MMOL/L (21-32) H Anion Gap 3 mmol/L (5-15) L Blood Urea Nitrogen 20 mg/dL (7-18) H Creatinine 2.8 MG/DL (0.55-1.30) H Estimat Glomerular Filtration Rate 20.1 mL/min (>60) Glucose Level 158 MG/DL (74-106) H Calcium Level 9.3 MG/DL (8.5-10.1) Total Bilirubin 0.5 MG/DL (0.2-1.0) Aspartate Amino Transf (AST/SGOT) 30 U/L (15-37) Alanine Aminotransferase (ALT/SGPT) 35 U/L (12-78) Alkaline Phosphatase 104 U/L (46-116) Total Protein 7.2 G/DL (6.4-8.2) Albumin 2.1 G/DL (3.4-5.0) L Globulin 5.1 g/dL Albumin/Globulin Ratio 0.4 (1.0-2.7) L Microbiology Date/Time Source Procedure Growth Status 12/14/19 09:50 Nasopharynx SARS-CoV-2 RdRp Gene Assay - Final Complete Height (Feet): 5 Height (Inches): 3.00 Weight (Pounds): 98 Medications Current Medications Medications (Trade) Dose Ordered Sig/Jeanne Route PRN Reason Start Time Stop Time Status Last Admin Dose Admin Acetaminophen (Tylenol) 650 mg Q4H PRN ORAL mild pain/T>100.5 12/13/19 20:00 01/12/20 19:59 Acetaminophen/ Hydrocodone Bitart ([place] 10/325) 1 tab Q4H PRN ORAL PAIN 4-10 12/13/19 20:00 12/20/19 19:59 Amlodipine Besylate (Norvasc) 5 mg QHS ORAL 12/15/19 21:00 01/14/20 20:59 Ascorbic Acid (Vitamin C) 500 mg DAILY ORAL 12/14/19 09:00 01/13/20 08:59 12/14/19 09:17 Aspirin (ASA) 81 mg DAILY ORAL 12/14/19 09:00 01/28/20 08:59 12/14/19 09:16 Atorvastatin Calcium (Lipitor) 80 mg BEDTIME ORAL 12/13/19 21:00 03/12/20 20:59 Clonidine HCl (Catapres TTS-1) 1 patch QWEEK TDERMAL 12/19/19 09:00 03/18/20 08:59 Epoetin Reuben (Epoetin Reuben(ESRD on dialysis)) 6,000 unit MON-WED-TUE SUBQ 12/14/19 21:00 03/13/20 20:59 Escitalopram Oxalate (Lexapro) 10 mg DAILY ORAL 12/14/19 09:00 01/13/20 08:59 12/14/19 09:17 Heparin Sodium (Porcine) (Heparin 5000 units/ml) 5,000 units EVERY 12 HOURS SUBQ 12/14/19 09:00 01/28/20 08:59 12/14/19 09:28 Heparin Sodium (Porcine) (Heparin Sod 1000 units/ml 10ml) 500 unit ONCE PRN IV HD 12/15/19 06:00 12/15/19 23:59 Magnesium Hydroxide (Mom) 30 ml DAILYPRN PRN ORAL Constipation 12/13/19 20:00 01/12/20 19:59 Megestrol Acetate (Megace) 400 mg TWICE A DAY ORAL 12/14/19 09:00 03/13/20 08:59 12/14/19 09:17 Metoprolol Tartrate (Lopressor) 50 mg Q12HR ORAL 12/13/19 21:00 03/12/20 20:59 12/14/19 09:49 Olanzapine (ZyPREXA) 2.5 mg Q6H PRN ORAL Agitation 12/13/19 20:00 01/27/20 19:59 Sodium Chloride 1,000 ml @ 500 mls/hr Q2H PRN IVLG sbp<90 during hd 12/15/19 06:00 12/15/19 23:59 Vitamin B Complex/ Vit C/Folic Acid (Nephrovite) 1 tab DAILY ORAL 12/14/19 09:00 01/13/20 08:59 12/14/19 09:16 Zinc Sulfate (Zinc Sulfate) 220 mg DAILY ORAL 12/14/19 09:00 03/13/20 08:59 12/14/19 09:17 Assessment/Plan Problem List: (1) Sacral decubitus ulcer, stage IV Assessment & Plan: 74-year-old female with large DTI prior necrotic tissue significant requiring debridement status post excisional debridement identifying nonviable tissue down to coccyx and sacrum. Patient is been doing well and recovering the nursing facility with good local care. She now presents still has a large open wound which was goal to have complete granulation potential closure and coverage at some point. Unfortunately given her nutritional status and decreased oral intake she is deteriorated somewhat does have some necrotic edges and slough noted in the wound bed. There is some granulation tissue approximately 6070% with some backbleeding as well. Currently no nausea vomiting fever chills. Labs noted. Albumin low. BMI low. Poor nutritional status. At this time would recommend PEG tube placement and initiation of tube feeds along with oral intake for gratification. Patient needs nutritional optimization for her wounds and her overall care plan. We will follow with recommendations Partition patient's care ICD Codes: L89.154 - Pressure ulcer of sacral region, stage 4 SNOMED: 351045875, 379313312 (2) Severe malnutrition Assessment & Plan: Recommend feeding tube placement ICD Codes: E43 - Unspecified severe protein-calorie malnutrition SNOMED: 65605869 (3) Dementia ICD Codes: F03.90 - Unspecified dementia without behavioral disturbance SNOMED: 04287625 (4) Leukocytosis ICD Codes: D72.829 - Elevated white blood cell count, unspecified SNOMED: 873123134, 648499496 (5) Weakness ICD Codes: R53.1 - Weakness SNOMED: 20001297 (6) ESRD (end stage renal disease) ICD Codes: N18.6 - End stage renal disease SNOMED: 70699812 (7) Hypertensive nephrosclerosis ICD Codes: I12.9 - Hypertensive chronic kidney disease with stage 1 through stage 4 chronic kidney disease, or unspecified chronic kidney disease SNOMED: 426896692 (8) Anemia in chronic kidney disease ICD Codes: N18.9 - Chronic kidney disease, unspecified; D63.1 - Anemia in chronic kidney disease SNOMED: 648553836 (9) CVA, old, cognitive deficits ICD Codes: I69.319 - Unspecified symptoms and signs involving cognitive functions following cerebral infarction SNOMED: 59448419, 388622417, 980634732, 187156459 (10) Deep tissue injury ICD Codes: T14.8XXA - Other injury of unspecified body region, initial encounter SNOMED: 502482318 (11) acute toxic encephalopathy Jesse Quinn Dec 14, 2019 14:30
--- NOTE | 2019-12-14 14:34 | NUR ---
NURSE NOTES: [facility] nephrology contacted for HD tomorrow. Spoke with
--- NOTE | 2019-12-14 14:37 | NUR ---
NURSE NOTES:WOUND CARE NOTES:Pt presented on admission with multiple Pressure injuries. Full thickness Sacral Pressure injury with undermined borders(L)12.5cm x (W)13.5cm,Undermining clockwise 2-5 by 2.5cm @3o'clock, Undermining Clockwise 10-12 by 2.6cm@10o'clock. Scattered slough ,10% necrotic at base. Bone is palpable. Undermined borders clockwise 9-3o'clock is indurated and necrotic. Surrounding perimeter of wound is indurated, purpuric and red tinged. At apex of wound along borders is an area of necrosis from 11-3o'clock.Wound is malodorous. Small amt taylor coloured exudate noted. At R Sacrum, in close proximity to above Sacral wound is a DTPI(L)6cm x (W)3cm. Base of pressure injury is purpuric with linear area of blood filled blister. Marginal erythema along borders.Marginal erythema along borders. At R Iliac is and area of hyperpigmentation with DTPI evolving along L aspect of borders of hyperpigmented area(L)2cm x ((W)2.2cm. DTPI L Ischium(L)6cm x (W)6.5cm. Base of wound is indurated, purpuric with surrounding non-blanching erythema. Scattered area of hypopigmentation noted to most medial aspect of L Ischium and perineum. Unstageable Pressure injury R Heel. Stable dry eschar noted. (L)2cm x (W)3.4cm. Periwound R Heel is blanchable but boggy. DTPI Medial L Heel(L)3cm x (W)4cm. Base of wound is maroon and indurated. Unstageable Pressure injury L lateral Malleolus(L)3cm x (W)3cm. 100% Dry brown/black eschar noted at base of wound. DTPI R Lateral Malleolus(L)0.5cm x (W)2cm. Base of wound is indurated purpuric with marginal erythema along borders. Tx.Plan:Cleanse Sacral wound with Dakin's 0.125% Adwoa. Loosely pack sacral wound with Dakin's moistened KERLIX. Apply Moisture Barrier Paste along borders. Cover with Optifoam drsg DAILY and PRN Apply Cavilon Skin Barrier to R Iliac. R sacrum,L Ischium. Cover each site with Optifoam drsgs. Change every 3 days and prn. Apply Betadine to Malleoli and both heels. Cover each site with Optifoam Drsgs. Change every 3days and prn. Reposition at least every 2hours or as tolerated. Place pillow between knees. Off-load heels with pillows. Air fluidized Mattress.
--- NOTE | 2019-12-14 14:44 | NUR ---
CASE MANAGEMENT: INITIAL REVIEW 74 YO F JOSUÉ FROM [facility], [facility]IN [facility] CC: She had not been eating well at the residential facility PMHx: dementia, depression, end-stage renal disease on chronic hemodialysis, and hypertension. SI:INFECTED SACRAL WOUND. DEHYDRATION VS: T 97.2 HR 106 RR 22 B/P 106/57 SATS 99% ON RA LABS: CO2 36 BUN 20 CR 2.8 GLU 158 IS: MEGACE PO BID LIPITOR PO QHS LEXAPRO PO QD LOPRESSOR PO Q12H NORVASC PO QHS PATIENT ADMITTED TO MED/SURG 12/14/2019 @ 1259 DCP: SNF evaluation for possible G-tube placement
[2019-12-14 16:00] VITALS: BP 106/55
--- NOTE | 2019-12-14 18:14 | NUR ---
NURSE NOTES: [facility] nephrology contacted for HD tomorrow with
--- NOTE | 2019-12-14 18:52 | NUR ---
NURSE NOTES: Telephone consent obtained with Meet Moise (brother) for HD, verified with second nurse.
--- NOTE | 2019-12-14 19:18 | NUR ---
HAND-OFF: Report given to Quan RODRIGUEZ.
[2019-12-14] MEDS ORDERED: ERGOCALCIFEROL1 GM MC (19:55)
--- NOTE | 2019-12-14 19:57 | NUR ---
NURSE NOTES: Patient in bed, awake, nonverbal. No s/s of pain or discomfort noted. Respiration is even and unlabored. Abdomen is soft and non distended. Noted with multiple dressing, intact. Kept clean and comfortable. Bed in low and locked position, provided safe environment. Iv site noted. Call light is at bedside. Will continue plan of care.
[2019-12-14 20:00] VITALS: BP 102/48
[2019-12-14] MEDS: Atorvastatin 80mg tab ORAL SCH ×2 (20:25→21:19)
[2019-12-14] MEDS: Epoetin Alfa-EPBX(ESRD on dialysis)3000 units/ml vial SUBQ SCH (20:25)
--- NOTE | 2019-12-14 22:07 | General Progress Note ---
Assessment/Plan Assessment/Plan: Assessment - Anorexia, malnutrition - OOBS - Anemia - Decubitus ulcer Recommendations - wound care - push po - PEG placement Tuesday Thank you Willow Cee MD Subjective Allergies: Coded Allergies: No Known Allergies (Unverified , 02/27/19) Objective Last 24 Hour Vital Signs Date Time Temp Pulse Resp B/P (MAP) Pulse Ox O2 Delivery O2 Flow Rate FiO2 12/14/19 20:17 98 102/48 12/14/19 20:11 Room Air 12/14/19 20:00 96.8 98 22 102/48 (66) 97 12/14/19 16:00 97.7 85 18 106/55 (72) 98 12/14/19 12:00 97.5 82 18 119/57 (77) 99 12/14/19 09:49 79 127/60 12/14/19 09:49 79 127/60 12/14/19 09:00 Room Air 12/14/19 08:00 97.9 79 18 127/60 (82) 96 12/14/19 04:00 97.0 96 20 113/56 (75) 99 12/13/19 23:49 97.0 99 22 112/56 (74) 97 Intake and Output 12/13/19 12/14/19 19:00 07:00 Intake Total 120 ml Balance 120 ml Intake Oral 120 ml # Bowel Movements 1 Height (Feet): 5 Height (Inches): 3.00 Weight (Pounds): 98 Willow Cee MD Dec 14, 2019 22:07
[2019-12-15] VITALS: BP 110/59
--- NOTE | 2019-12-15 | Consultation ---
DATE OF CONSULTATION: 12/14/2019 GASTROENTEROLOGY CONSULTATION CONSULTING PHYSICIAN: Willow Cee MD. CHIEF COMPLAINT: I was asked to see this patient by Dr. Freddy Quevedo for evaluation of anorexia and gastrostomy tube placement. HISTORY OF PRESENT ILLNESS: The patient is an unfortunate 74-year-old woman with advanced cognitive dysfunction who was brought in due to failure to thrive. She has had a progressive decline in course with poor oral intake. She also has end-stage renal disease on chronic hemodialysis. She has developed a large sacral wound, which is being cared for, but she is malnourished and has had protein loss. The family have requested a gastrostomy tube placement for enteral feeding access. The patient herself is unable to provide any history and most of the information is available from the chart. PAST MEDICAL HISTORY: History of dementia, depression, end-stage renal disease, hypertension, decubitus ulceration, failure to thrive, weight loss. FAMILY HISTORY: Noncontributory. SOCIAL HISTORY: The patient has had no history of smoking or drinking and her brother makes decisions for her. ALLERGIES: None. REVIEW OF SYSTEMS: Otherwise negative. PHYSICAL EXAMINATION: GENERAL: Debilitated, thin woman, seen in her room. HEENT: Normocephalic, atraumatic. Dentition is poor. NECK: Supple. CHEST: Clear to auscultation. CARDIOVASCULAR: Revealed a regular rate. ABDOMEN: Soft. EXTREMITIES: Revealed no edema. LABORATORY DATA: Noted. ASSESSMENT: This patient has advanced cognitive dysfunction with poor oral intake and she is not likely resume her ability to eat at this time. The patient is therefore a reasonable candidate for endoscopic gastrostomy tube placement for enteral feeding. This should help her decubitus ulcers to heal and for better nutrition. The indications, risks, alternatives, and possible complications of the gastrostomy tube were explained to the patient's brother and informed consent was obtained. RECOMMENDATIONS: 1. Decubitus ulcer care. 2. Push oral intake as tolerated. 3. Endoscopy with gastrostomy tube placement on Tuesday. 4. Monitor CBC for patient's anemia. Thank you for asking me to participate in the care of this patient. Willow Cee M.D. DR: MODE JOB#: [id number] CC:
[2019-12-15 03:49] VITALS: BP 108/57
[2019-12-15] MEDS ORDERED: Heparin Sod 1000 units/ml 10ml IV PRN (06:00)
--- NOTE | 2019-12-15 07:20 | NUR ---
HAND-OFF: Report given to melinda RODRIGUEZ, Idalmis RN.
--- NOTE | 2019-12-15 07:47 | NUR ---
NURSE NOTES: Report received from MICHAEL Glass. Patient seen awake and alert x1. No s/sx of SOB/Distress, no s/sx of pain or any discomfort. IV located on left forearm gauge 24. Dialysis site located on left upper arm, +thrill and +bruit. Bed placed in lowest position and locked. Call light within reach and is kept on continuous monitoring.
[2019-12-15 08:00] VITALS: BP 121/64
--- NOTE | 2019-12-15 08:14 | General Progress Note ---
Assessment/Plan Problem List: (1) Sacral decubitus ulcer, stage IV ICD Codes: L89.154 - Pressure ulcer of sacral region, stage 4 SNOMED: 926289998, 089270987 (2) Severe malnutrition ICD Codes: E43 - Unspecified severe protein-calorie malnutrition SNOMED: 05737877 (3) Anemia in chronic kidney disease ICD Codes: N18.9 - Chronic kidney disease, unspecified; D63.1 - Anemia in chronic kidney disease SNOMED: 991603008 (4) ESRD (end stage renal disease) ICD Codes: N18.6 - End stage renal disease SNOMED: 72119729 (5) Dementia ICD Codes: F03.90 - Unspecified dementia without behavioral disturbance SNOMED: 17582663 Assessment/Plan: wound care ivf pending PEG placement for Tuesday Subjective Allergies: Coded Allergies: No Known Allergies (Unverified , 02/27/19) Objective Last 24 Hour Vital Signs Date Time Temp Pulse Resp B/P (MAP) Pulse Ox O2 Delivery O2 Flow Rate FiO2 12/15/19 08:00 97.7 101 20 121/64 (83) 95 12/15/19 03:49 96.8 99 22 108/57 (74) 96 12/15/19 00:00 96.3 99 22 110/59 (76) 97 12/14/19 20:17 98 102/48 12/14/19 20:11 Room Air 12/14/19 20:00 96.8 98 22 102/48 (66) 97 12/14/19 16:00 97.7 85 18 106/55 (72) 98 12/14/19 12:00 97.5 82 18 119/57 (77) 99 12/14/19 09:49 79 127/60 12/14/19 09:49 79 127/60 12/14/19 09:00 Room Air Intake and Output 12/14/19 12/15/19 19:00 07:00 Intake Total 480 ml 350 ml Balance 480 ml 350 ml Intake Oral 480 ml 350 ml Height (Feet): 5 Height (Inches): 3.00 Weight (Pounds): 98 General Appearance: alert EENT: normal ENT inspection Neck: supple Cardiovascular: normal rate, gallop/S3 Abdomen: normal bowel sounds, non tender, soft Extremities: non-tender James Shin MD Dec 15, 2019 08:14
[2019-12-15] MEDS: Ascorbic Acid 500mg tab ORAL SCH (08:58)
[2019-12-15] MEDS: Zinc Sulfate 220mg ORAL SCH (08:58)
[2019-12-15] MEDS: Aspirin Baby 81mg ORAL SCH (08:58)
[2019-12-15] MEDS: Megace 400mg/10ml Susp ORAL SCH ×2 (08:58→17:44)
[2019-12-15] MEDS: Nephrovite tab (Rena-Vite) ORAL SCH (08:58)
[2019-12-15] MEDS: Metoprolol Tartrate 50mg tab ORAL SCH ×2 (08:59→23:05)
[2019-12-15] MEDS: Heparin 5000 units/ml inj SUBQ SCH ×2 (09:01→21:00)
[2019-12-15] MEDS: Dakin's 0.125% Soln (Quarter Strength) 16oz TOPIC SCH (09:01)
--- NOTE | 2019-12-15 11:09 | General Progress Note ---
Assessment/Plan Problem List: (1) Dementia ICD Codes: F03.90 - Unspecified dementia without behavioral disturbance SNOMED: 10854026 (2) Weakness ICD Codes: R53.1 - Weakness SNOMED: 11656992 (3) ESRD (end stage renal disease) ICD Codes: N18.6 - End stage renal disease SNOMED: 85824724 (4) Hypertensive nephrosclerosis ICD Codes: I12.9 - Hypertensive chronic kidney disease with stage 1 through stage 4 chronic kidney disease, or unspecified chronic kidney disease SNOMED: 405754173 (5) CVA, old, cognitive deficits ICD Codes: I69.319 - Unspecified symptoms and signs involving cognitive functions following cerebral infarction SNOMED: 43156647, 280986904, 711632464, 585810603 (6) Deep tissue injury ICD Codes: T14.8XXA - Other injury of unspecified body region, initial encounter SNOMED: 412191110 (7) acute toxic encephalopathy (8) Severe malnutrition ICD Codes: E43 - Unspecified severe protein-calorie malnutrition SNOMED: 31502290 (9) Sacral decubitus ulcer, stage IV ICD Codes: L89.154 - Pressure ulcer of sacral region, stage 4 SNOMED: 751510127, 451314388 Status: stable, progressing Assessment/Plan: Continue current treatment. Encourage p.o.'s Cardiology clearance for G-tube placement on Tuesday Hemodialysis per renal DVT and stress ulcer prophylaxis Wound care per surgery Frequent turning every 2 hours Psych treatment per psychiatry Subjective ROS Limited/Unobtainable: Yes Constitutional: Reports: malaise, weakness HEENT: Reports: no symptoms Cardiovascular: Reports: no symptoms Respiratory: Reports: no symptoms Gastrointestinal/Abdominal: Reports: difficulty swallowing, poor appetite, poor fluid intake Genitourinary: Reports: no symptoms Neurologic/Psychiatric: Reports: anxiety, depressed, emotional problems, pre- existing deficit Endocrine: Reports: no symptoms Hematologic/Lymphatic: Reports: anemia Allergies: Coded Allergies: No Known Allergies (Unverified , 02/27/19) All Systems: reviewed and negative except above Subjective No overnight events. Remains somnolent and withdrawn. No reports of bleeding. No shortness of breath. He is at baseline. Labs reviewed. GI and renal input appreciated. EKG noted. Objective Last 24 Hour Vital Signs Date Time Temp Pulse Resp B/P (MAP) Pulse Ox O2 Delivery O2 Flow Rate FiO2 12/15/19 09:00 Room Air 12/15/19 08:59 101 121/64 12/15/19 08:00 97.7 101 20 121/64 (83) 95 12/15/19 03:49 96.8 99 22 108/57 (74) 96 12/15/19 00:00 96.3 99 22 110/59 (76) 97 12/14/19 20:17 98 102/48 12/14/19 20:11 Room Air 12/14/19 20:00 96.8 98 22 102/48 (66) 97 12/14/19 16:00 97.7 85 18 106/55 (72) 98 12/14/19 12:00 97.5 82 18 119/57 (77) 99 Intake and Output 12/14/19 12/15/19 19:00 07:00 Intake Total 480 ml 350 ml Balance 480 ml 350 ml Intake Oral 480 ml 350 ml Height (Feet): 5 Height (Inches): 3.00 Weight (Pounds): 98 General Appearance: WD/WN, lethargic, confused EENT: PERRL/EOMI Neck: non-tender, normal alignment, supple Cardiovascular: normal peripheral pulses, normal rate, regular rhythm Respiratory/Chest: chest wall non-tender, lungs clear, normal breath sounds Abdomen: normal bowel sounds, non tender, soft, no organomegaly, no mass Edema: no edema noted Arm (L), no edema noted Arm (R) Neurologic: machinist bench II-XII grossly normal, alert, responsive, disoriented Skin: normal pigmentation Lymphatic: normal anterior cervical (L), normal anterior cervical (R) Freddy Quevedo MD Dec 15, 2019 11:09
[2019-12-15 12:00] VITALS: BP 117/62
--- NOTE | 2019-12-15 12:24 | Surgery Progress Note ---
Surgery Progress Note Subjective Additional Comments no acute events doing well plan for HD comfortable dressings going well Objective Last 24 Hour Vital Signs Date Time Temp Pulse Resp B/P (MAP) Pulse Ox O2 Delivery O2 Flow Rate FiO2 12/15/19 09:00 Room Air 12/15/19 08:59 101 121/64 12/15/19 08:00 97.7 101 20 121/64 (83) 95 12/15/19 03:49 96.8 99 22 108/57 (74) 96 12/15/19 00:00 96.3 99 22 110/59 (76) 97 12/14/19 20:17 98 102/48 12/14/19 20:11 Room Air 12/14/19 20:00 96.8 98 22 102/48 (66) 97 12/14/19 16:00 97.7 85 18 106/55 (72) 98 I&O Intake and Output 12/14/19 12/15/19 19:00 07:00 Intake Total 480 ml 350 ml Balance 480 ml 350 ml Intake Oral 480 ml 350 ml Dressing: saturated Wound: other Cardiovascular: RSR Respiratory: decreased breath sounds Abdomen: soft, non-tender, present bowel sounds Extremities: no tenderness, no cyanosis Plan Problems: (1) Sacral decubitus ulcer, stage IV Assessment & Plan: 74-year-old female with large DTI prior necrotic tissue significant requiring debridement status post excisional debridement identifying nonviable tissue down to coccyx and sacrum. Patient is been doing well and recovering the nursing facility with good local care. She now presents still has a large open wound which was goal to have complete granulation potential closure and coverage at some point. Unfortunately given her nutritional status and decreased oral intake she is deteriorated somewhat does have some necrotic edges and slough noted in the wound bed. There is some granulation tissue approximately 6070% with some backbleeding as well. Currently no nausea vomiting fever chills. Labs noted. Albumin low. BMI low. Poor nutritional status. At this time would recommend PEG tube placement and initiation of tube feeds along with oral intake for gratification. Patient needs nutritional optimization for her wounds and her overall care plan. We will follow with recommendations Pt presented on admission with multiple Pressure injuries. Full thickness stage 4Sacral Pressure injury with undermined borders(L)12.5cm x (W)13.5cm, Undermining clockwise 2-5 by 2.5cm @3o'clock, Undermining Clockwise 10-12 by 2.6cm@10o'clock. Scattered slough ,10% necrotic at base. Bone is palpable. Undermined borders clockwise 9-3o'clock is indurated and necrotic. Surrounding perimeter of wound is indurated, purpuric and red tinged. At apex of wound along borders is an area of necrosis from 11-3o'clock.Wound is malodorous. Small amt taylor coloured exudate noted. At R Sacrum, in close proximity to above Sacral wound is a DTPI(L)6cm x (W)3cm. Base of pressure injury is purpuric with linear area of blood filled blister. Marginal erythema along borders.Marginal erythema along borders. At R Iliac is and area of hyperpigmentation with DTPI evolving along L aspect of borders of hyperpigmented area(L)2cm x ((W)2.2cm. DTPI L Ischium(L)6cm x (W)6.5cm. Base of wound is indurated, purpuric with surrounding non-blanching erythema. Scattered area of hypopigmentation noted to most medial aspect of L Ischium and perineum. Unstageable Pressure injury R Heel. Stable dry eschar noted. (L)2cm x (W)3.4cm. Periwound R Heel is blanchable but boggy. DTPI Medial L Heel(L)3cm x (W)4cm. Base of wound is maroon and indurated. Unstageable Pressure injury L lateral Malleolus(L)3cm x (W)3cm. 100% Dry brown/ black eschar noted at base of wound. DTPI R Lateral Malleolus(L)0.5cm x (W)2cm. Base of wound is indurated purpuric with marginal erythema along borders. Tx.Plan: Cleanse Sacral wound with Dakin's 0.125% Adwoa. Loosely pack sacral wound with Dakin's moistened KERLIX. Apply Moisture Barrier Paste along borders. Cover with Optifoam drsg DAILY and PRN Apply Cavilon Skin Barrier to R Iliac. R sacrum,L Ischium. Cover each site with Optifoam drsgs. Change every 3 days and prn. Apply Betadine to Malleoli and both heels. Cover each site with Optifoam Drsgs. Change every 3days and prn. Reposition at least every 2hours or as tolerated. Place pillow between knees. Off-load heels with pillows. Air fluidized Mattress. (2) Severe malnutrition Assessment & Plan: Recommend feeding tube placement (3) Dementia (4) Leukocytosis (5) Weakness (6) ESRD (end stage renal disease) (7) Hypertensive nephrosclerosis (8) Anemia in chronic kidney disease (9) CVA, old, cognitive deficits (10) Deep tissue injury (11) acute toxic encephalopathy Jesse Quinn Dec 15, 2019 12:24
--- NOTE | 2019-12-15 12:59 | Nephrology Progress Note ---
Assessment/Plan Problem List: (1) ESRD (end stage renal disease) (2) Hypertensive nephrosclerosis (3) CVA, old, cognitive deficits (4) Severe malnutrition (5) Sacral decubitus ulcer, stage IV Plan HD today, PEG Subjective ROS Limited/Unobtainable: Yes Objective Objective Last 24 Hour Vital Signs Date Time Temp Pulse Resp B/P (MAP) Pulse Ox O2 Delivery O2 Flow Rate FiO2 12/15/19 12:00 98.2 103 16 117/62 (80) 97 12/15/19 09:00 Room Air 12/15/19 08:59 101 121/64 12/15/19 08:00 97.7 101 20 121/64 (83) 95 12/15/19 03:49 96.8 99 22 108/57 (74) 96 12/15/19 00:00 96.3 99 22 110/59 (76) 97 12/14/19 20:17 98 102/48 12/14/19 20:11 Room Air 12/14/19 20:00 96.8 98 22 102/48 (66) 97 12/14/19 16:00 97.7 85 18 106/55 (72) 98 Intake and Output 12/14/19 12/15/19 19:00 07:00 Intake Total 480 ml 350 ml Balance 480 ml 350 ml Intake Oral 480 ml 350 ml Height (Feet): 5 Height (Inches): 3.00 Weight (Pounds): 111 General Appearance: lethargic, confused Cardiovascular: regular rhythm Respiratory/Chest: lungs clear Extremities: no edema Neurologic: abnormal beck tender II-XII, motor weakness Dylon Stringer MD Dec 15, 2019 12:59
[2019-12-15 16:00] VITALS: BP 100/78
--- NOTE | 2019-12-15 19:39 | NUR ---
HAND-OFF: Report given to MICHAEL Chinchilla.
--- NOTE | 2019-12-15 19:40 | NUR ---
NURSE NOTES: Report received from MICHAEL Puga. Patient is awake and alert x1, nonverbal. No s/sx of SOB/Distress, no s/sx of pain or any discomfort. IV left forearm 24 g, patent, asymptomatic. Dialysis site located on left upper arm, +thrill and +bruit. Bed placed in lowest position and locked, bed alarm on. Call light within reach. Currently receiving dialysis, Dialysis nurse, MICHAEL Duffy at bedside. will continue to monitor
[2019-12-15 20:00] VITALS: BP 109/54
--- NOTE | 2019-12-15 22:06 | NUR ---
NURSE NOTES: Clive, dialysis nurse just completed dialysis, 1 L out. VSS BP 110/52 HR 80. Resting comfortably in bed.
[2019-12-15] MEDS: Atorvastatin 80mg tab ORAL SCH (23:05)
[2019-12-16] VITALS: BP 104/59
[2019-12-16 04:00] VITALS: BP 104/60
--- NOTE | 2019-12-16 07:37 | NUR ---
NURSE NOTES: Report received from MICHAEL Chinchilla. Patient seen lying in bed awake and alert x1. No s/sx of SOB/Distress, no s/sx any pain or gi/gu discomfort. IV line located on LFA gauge 22, IV line inplace, intact, and patent. No s/sx of swelling, redness, or infection at site. Bed placed on lowest and locked position. Call light placed within reach and will continue to monitor patient during shift.
--- NOTE | 2019-12-16 07:40 | General Progress Note ---
Assessment/Plan Problem List: (1) Sacral decubitus ulcer, stage IV ICD Codes: L89.154 - Pressure ulcer of sacral region, stage 4 SNOMED: 105757214, 634845406 (2) Severe malnutrition ICD Codes: E43 - Unspecified severe protein-calorie malnutrition SNOMED: 94540449 (3) Anemia in chronic kidney disease ICD Codes: N18.9 - Chronic kidney disease, unspecified; D63.1 - Anemia in chronic kidney disease SNOMED: 630724789 (4) ESRD (end stage renal disease) ICD Codes: N18.6 - End stage renal disease SNOMED: 82339242 (5) Dementia ICD Codes: F03.90 - Unspecified dementia without behavioral disturbance SNOMED: 62596148 Status: stable, progressing Assessment/Plan: wound care ivf repeat labs in am pending PEG placement for Tuesday Subjective ROS Limited/Unobtainable: No Allergies: Coded Allergies: No Known Allergies (Unverified , 02/27/19) Objective Last 24 Hour Vital Signs Date Time Temp Pulse Resp B/P (MAP) Pulse Ox O2 Delivery O2 Flow Rate FiO2 12/16/19 04:00 98.0 100 20 104/60 (75) 96 12/16/19 00:00 97.9 102 22 104/59 (74) 96 12/15/19 23:05 104 119/60 12/15/19 21:00 Room Air 12/15/19 21:00 104 109/54 12/15/19 20:00 98.4 104 19 109/54 (72) 95 12/15/19 16:00 97.7 104 20 100/78 (85) 97 12/15/19 12:00 98.2 103 16 117/62 (80) 97 12/15/19 09:00 Room Air 12/15/19 08:59 101 121/64 12/15/19 08:00 97.7 101 20 121/64 (83) 95 Intake and Output 12/15/19 12/16/19 19:00 07:00 Intake Total 100 ml Output Total 1000 ml Balance 100 ml -1000 ml Intake Oral 100 ml Output Hemodialysis UF 1000 ml # Voids 2 Laboratory Tests 12/16/19 07:05: Hepatitis B Surface Antigen [Pending] Height (Feet): 5 Height (Inches): 3.00 Weight (Pounds): 111 General Appearance: no apparent distress EENT: normal ENT inspection Neck: supple Cardiovascular: normal rate Respiratory/Chest: decreased breath sounds Abdomen: normal bowel sounds, non tender, soft Extremities: non-tender James Shin MD Dec 16, 2019 07:40
[2019-12-16 08:00] VITALS: BP 121/54
--- NOTE | 2019-12-16 08:04 | NUR ---
HAND-OFF: Report given to MICHAEL Puga.
[2019-12-16] MEDS: Ascorbic Acid 500mg tab ORAL SCH (08:48)
[2019-12-16] MEDS: Megace 400mg/10ml Susp ORAL SCH ×2 (08:48→16:58)
[2019-12-16] MEDS: Aspirin Baby 81mg ORAL SCH (08:49)
[2019-12-16] MEDS: Zinc Sulfate 220mg ORAL SCH (08:49)
[2019-12-16] MEDS: Nephrovite tab (Rena-Vite) ORAL SCH (08:49)
[2019-12-16] MEDS: Heparin 5000 units/ml inj SUBQ SCH ×2 (08:49→21:00)
[2019-12-16] MEDS: Metoprolol Tartrate 50mg tab ORAL SCH ×2 (08:49→21:00)
[2019-12-16] MEDS: Dakin's 0.125% Soln (Quarter Strength) 16oz TOPIC SCH (08:50)
--- NOTE | 2019-12-16 09:56 | General Progress Note ---
Assessment/Plan Problem List: (1) Dementia ICD Codes: F03.90 - Unspecified dementia without behavioral disturbance SNOMED: 72754266 (2) Weakness ICD Codes: R53.1 - Weakness SNOMED: 53201963 (3) ESRD (end stage renal disease) ICD Codes: N18.6 - End stage renal disease SNOMED: 81791364 (4) Hypertensive nephrosclerosis ICD Codes: I12.9 - Hypertensive chronic kidney disease with stage 1 through stage 4 chronic kidney disease, or unspecified chronic kidney disease SNOMED: 110285871 (5) CVA, old, cognitive deficits ICD Codes: I69.319 - Unspecified symptoms and signs involving cognitive functions following cerebral infarction SNOMED: 78148368, 297539923, 270960291, 512757912 (6) Deep tissue injury ICD Codes: T14.8XXA - Other injury of unspecified body region, initial encounter SNOMED: 674305045 (7) acute toxic encephalopathy (8) Severe malnutrition ICD Codes: E43 - Unspecified severe protein-calorie malnutrition SNOMED: 58821167 (9) Sacral decubitus ulcer, stage IV ICD Codes: L89.154 - Pressure ulcer of sacral region, stage 4 SNOMED: 222293586, 245069614 Status: stable, progressing Assessment/Plan: Continue current treatment. Encourage p.o.'s Cardiology clearance for G-tube placement on Tuesday Hemodialysis per renal DVT and stress ulcer prophylaxis Wound care per surgery Frequent turning every 2 hours Psych treatment per psychiatry Subjective Allergies: Coded Allergies: No Known Allergies (Unverified , 02/27/19) Subjective No overnight events. Remains somnolent and withdrawn. No reports of bleeding. No shortness of breath. Labs reviewed. GI and renal input appreciated. EKG noted. refused po yesterday. Objective Last 24 Hour Vital Signs Date Time Temp Pulse Resp B/P (MAP) Pulse Ox O2 Delivery O2 Flow Rate FiO2 12/16/19 09:00 Room Air 12/16/19 08:49 102 121/54 12/16/19 08:00 98.7 102 18 121/54 (76) 98 12/16/19 04:00 98.0 100 20 104/60 (75) 96 12/16/19 00:00 97.9 102 22 104/59 (74) 96 12/15/19 23:05 104 119/60 12/15/19 21:00 Room Air 12/15/19 21:00 104 109/54 12/15/19 20:00 98.4 104 19 109/54 (72) 95 12/15/19 16:00 97.7 104 20 100/78 (85) 97 12/15/19 12:00 98.2 103 16 117/62 (80) 97 Intake and Output 12/15/19 12/16/19 19:00 07:00 Intake Total 100 ml Output Total 1000 ml Balance 100 ml -1000 ml Intake Oral 100 ml Output Hemodialysis UF 1000 ml # Voids 2 Laboratory Tests 12/16/19 07:05: Hepatitis B Surface Antigen [Pending] Height (Feet): 5 Height (Inches): 3.00 Weight (Pounds): 111 Objective General Appearance: WD/WN, lethargic, confused EENT: PERRL/EOMI Neck: non-tender, normal alignment, supple Cardiovascular: normal peripheral pulses, normal rate, regular rhythm Respiratory/Chest: chest wall non-tender, lungs clear, normal breath sounds Abdomen: normal bowel sounds, non tender, soft, no organomegaly, no mass Edema: no edema noted Arm (L), no edema noted Arm (R) Neurologic: consulting engineer II-XII grossly normal, alert, responsive, disoriented Skin: normal pigmentation Lymphatic: normal anterior cervical (L), normal anterior cervical (R) Freddy Quevedo MD Dec 16, 2019 09:56
[2019-12-16 12:00] VITALS: BP 101/58
--- NOTE | 2019-12-16 12:12 | Surgery Progress Note ---
Surgery Progress Note Subjective Additional Comments no acute events doing well comfortable appearing dressings going well Objective Last 24 Hour Vital Signs Date Time Temp Pulse Resp B/P (MAP) Pulse Ox O2 Delivery O2 Flow Rate FiO2 12/16/19 12:00 96.4 80 18 101/58 (72) 97 12/16/19 09:00 Room Air 12/16/19 08:49 102 121/54 12/16/19 08:00 98.7 102 18 121/54 (76) 98 12/16/19 04:00 98.0 100 20 104/60 (75) 96 12/16/19 00:00 97.9 102 22 104/59 (74) 96 12/15/19 23:05 104 119/60 12/15/19 21:00 Room Air 12/15/19 21:00 104 109/54 12/15/19 20:00 98.4 104 19 109/54 (72) 95 12/15/19 16:00 97.7 104 20 100/78 (85) 97 I&O Intake and Output 12/15/19 12/16/19 19:00 07:00 Intake Total 100 ml Output Total 1000 ml Balance 100 ml -1000 ml Intake Oral 100 ml Output Hemodialysis UF 1000 ml # Voids 2 Dressing: saturated Wound: other Cardiovascular: RSR Respiratory: clear, decreased breath sounds Abdomen: soft, non-tender, present bowel sounds Extremities: no tenderness, no cyanosis, other Laboratory Tests Test 12/16/19 07:05 Hepatitis B Surface Antigen Pending Plan Problems: (1) Sacral decubitus ulcer, stage IV Assessment & Plan: 74-year-old female with large DTI prior necrotic tissue significant requiring debridement status post excisional debridement identifying nonviable tissue down to coccyx and sacrum. Patient is been doing well and recovering the nursing facility with good local care. She now presents still has a large open wound which was goal to have complete granulation potential closure and coverage at some point. Unfortunately given her nutritional status and decreased oral intake she is deteriorated somewhat does have some necrotic edges and slough noted in the wound bed. There is some granulation tissue approximately 6070% with some backbleeding as well. Currently no nausea vomiting fever chills. Labs noted. Albumin low. BMI low. Poor nutritional status. At this time would recommend PEG tube placement and initiation of tube feeds along with oral intake for gratification. Patient needs nutritional optimization for her wounds and her overall care plan. We will follow with recommendations Pt presented on admission with multiple Pressure injuries. Full thickness stage 4Sacral Pressure injury with undermined borders(L)12.5cm x (W)13.5cm, Undermining clockwise 2-5 by 2.5cm @3o'clock, Undermining Clockwise 10-12 by 2.6cm@10o'clock. Scattered slough ,10% necrotic at base. Bone is palpable. Undermined borders clockwise 9-3o'clock is indurated and necrotic. Surrounding perimeter of wound is indurated, purpuric and red tinged. At apex of wound along borders is an area of necrosis from 11-3o'clock.Wound is malodorous. Small amt taylor coloured exudate noted. At R Sacrum, in close proximity to above Sacral wound is a DTPI(L)6cm x (W)3cm. Base of pressure injury is purpuric with linear area of blood filled blister. Marginal erythema along borders.Marginal erythema along borders. At R Iliac is and area of hyperpigmentation with DTPI evolving along L aspect of borders of hyperpigmented area(L)2cm x ((W)2.2cm. DTPI L Ischium(L)6cm x (W)6.5cm. Base of wound is indurated, purpuric with surrounding non-blanching erythema. Scattered area of hypopigmentation noted to most medial aspect of L Ischium and perineum. Unstageable Pressure injury R Heel. Stable dry eschar noted. (L)2cm x (W)3.4cm. Periwound R Heel is blanchable but boggy. DTPI Medial L Heel(L)3cm x (W)4cm. Base of wound is maroon and indurated. Unstageable Pressure injury L lateral Malleolus(L)3cm x (W)3cm. 100% Dry brown/ black eschar noted at base of wound. DTPI R Lateral Malleolus(L)0.5cm x (W)2cm. Base of wound is indurated purpuric with marginal erythema along borders. Tx.Plan: Cleanse Sacral wound with Dakin's 0.125% Adwoa. Loosely pack sacral wound with Dakin's moistened KERLIX. Apply Moisture Barrier Paste along borders. Cover with Optifoam drsg DAILY and PRN Apply Cavilon Skin Barrier to R Iliac. R sacrum,L Ischium. Cover each site with Optifoam drsgs. Change every 3 days and prn. Apply Betadine to Malleoli and both heels. Cover each site with Optifoam Drsgs. Change every 3days and prn. Reposition at least every 2hours or as tolerated. Place pillow between knees. Off-load heels with pillows. Air fluidized Mattress. (2) Severe malnutrition Assessment & Plan: Recommend feeding tube placement (3) Dementia (4) Leukocytosis (5) Weakness (6) ESRD (end stage renal disease) (7) Hypertensive nephrosclerosis (8) Anemia in chronic kidney disease (9) CVA, old, cognitive deficits (10) Deep tissue injury (11) acute toxic encephalopathy Jesse Quinn Dec 16, 2019 12:12
--- NOTE | 2019-12-16 12:52 | Nephrology Progress Note ---
Assessment/Plan Problem List: (1) ESRD (end stage renal disease) (2) Hypertensive nephrosclerosis (3) CVA, old, cognitive deficits (4) Severe malnutrition (5) Sacral decubitus ulcer, stage IV Plan HD TTS PEG Subjective ROS Limited/Unobtainable: Yes Objective Objective Last 24 Hour Vital Signs Date Time Temp Pulse Resp B/P (MAP) Pulse Ox O2 Delivery O2 Flow Rate FiO2 12/16/19 12:00 96.4 80 18 101/58 (72) 97 12/16/19 09:00 Room Air 12/16/19 08:49 102 121/54 12/16/19 08:00 98.7 102 18 121/54 (76) 98 12/16/19 04:00 98.0 100 20 104/60 (75) 96 12/16/19 00:00 97.9 102 22 104/59 (74) 96 12/15/19 23:05 104 119/60 12/15/19 21:00 Room Air 12/15/19 21:00 104 109/54 12/15/19 20:00 98.4 104 19 109/54 (72) 95 12/15/19 16:00 97.7 104 20 100/78 (85) 97 Intake and Output 12/15/19 12/16/19 19:00 07:00 Intake Total 100 ml Output Total 1000 ml Balance 100 ml -1000 ml Intake Oral 100 ml Output Hemodialysis UF 1000 ml # Voids 2 Laboratory Tests 12/16/19 07:05: Hepatitis B Surface Antigen [Pending] Height (Feet): 5 Height (Inches): 3.00 Weight (Pounds): 111 General Appearance: confused EENT: normal ENT inspection Neck: normal alignment Cardiovascular: regular rhythm Respiratory/Chest: lungs clear Abdomen: soft Extremities: no edema Neurologic: abnormal 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
--- NOTE | 2019-12-16 13:29 | NUR ---
NURSE NOTES: Patient seen by Dr. Stringer, no new orders were given at this time.
--- NOTE | 2019-12-16 15:44 | Cardiology Progress Note ---
Subjective DATE OF SERVICE: Dec 16, 2019 Remains withdrawn and lethargic No fevers/chills, N/V,D. No SOB. REVIEW OF SYSTEMS: unchanged from assessment of 12/15/19 Objective Last 24 Hour Vital Signs Date Time Temp Pulse Resp B/P (MAP) Pulse Ox O2 Delivery O2 Flow Rate FiO2 12/16/19 12:00 96.4 80 18 101/58 (72) 97 12/16/19 09:00 Room Air 12/16/19 08:49 102 121/54 12/16/19 08:00 98.7 102 18 121/54 (76) 98 12/16/19 04:00 98.0 100 20 104/60 (75) 96 12/16/19 00:00 97.9 102 22 104/59 (74) 96 12/15/19 23:05 104 119/60 12/15/19 21:00 Room Air 12/15/19 21:00 104 109/54 12/15/19 20:00 98.4 104 19 109/54 (72) 95 12/15/19 16:00 97.7 104 20 100/78 (85) 97 HEENT: normal ENT inspection RHYTHM: ST LUNGS: lungs clear bilaterally CARDIAC: regular rhythm, normal S1 and S2, rapid rate ABDOMEN: non tender, soft, no organomegaly EXTREMITIES: No edema, other - Palpable bruit over UE AV fistula Laboratory Tests Test 12/16/19 07:05 Hepatitis B Surface Antigen Pending Microbiology Date/Time Source Procedure Growth Status 12/14/19 09:50 Nasopharynx SARS-CoV-2 RdRp Gene Assay - Final Complete Assessment/Plan Assessment/Plan Severe protein/calorie malnutrition Anemia of CKD ESRD Dysphagia Hx CVA with dementia Metabolic encephalopathy Sinus tachycardia Hypertension/HHD Chronic diastolic CHF Sacral wound - s/p debridement Severe sepsis Dehydration/hypovolemia HD/UF Free water replacement as needed DVT prophylaxis Stable for PEG from cardiovascular standpoint Bulmaro Hester MD Dec 16, 2019 15:44
[2019-12-16 16:00] VITALS: BP 119/61
--- NOTE | 2019-12-16 19:19 | NUR ---
HAND-OFF: Report given to MICHAEL Chinchilla.
--- NOTE | 2019-12-16 19:25 | NUR ---
NURSE NOTES: Report received from MICHAEL Puga. Patient is awake and alert x1, nonverbal. No s/sx of SOB/Distress, no s/sx of pain or any discomfort. IV right wrist 24 g, patent, asymptomatic. Dialysis site located on left upper arm, +thrill and +bruit. Bed placed in lowest position and locked, bed alarm on. Fall and aspiration precautions in place. Call light within reach.
[2019-12-16 20:00] VITALS: BP 96/59
[2019-12-16] MEDS: Atorvastatin 80mg tab ORAL SCH (22:29)
[2019-12-17] VITALS (13 sets, daily range): BP systolic 94–114; BP diastolic 42–70
--- NOTE | 2019-12-17 00:45 | Consultation ---
DATE OF CONSULTATION: CARDIOLOGY CONSULT Freddy Quevedo requesting preoperative cardiovascular risk assessment for G-tube placement. HISTORY OF PRESENT ILLNESS: This is a 74-year-old female with cerebrovascular disease and dementia as well as end-stage renal disease on chronic hemodialysis. Has had progression of a sacral wound. She has had progressive protein-calorie malnutrition and has had poor healing following debridement. She has been increasingly withdrawn and lethargic, eating poorly and is being considered for G-tube placement at this time. The patient has not had any shortness of breath, swelling, or hypotension. She has been stable on her usual hemodialysis sessions. She has not had any fevers, chills, cough or sputum production, nausea, vomiting, or diarrhea. PAST MEDICAL HISTORY: End-stage renal disease, cerebrovascular disease with dementia, depression, hypertensive heart disease, and AV fistula. ALLERGIES: None. MEDICATIONS: Reviewed and reconciled. SOCIAL HISTORY: Negative for smoking, alcohol, or substance abuse. FAMILY HISTORY: Noncontributory. REVIEW OF SYSTEMS: Review of systems not obtainable due to the patient's underlying dementia. REVIEW OF RECORDS: Review of records x20 minutes is performed including prior hospitalizations here and intermediate chart and pertinent data has been outlined above. PHYSICAL EXAMINATION: VITAL SIGNS: Afebrile. Blood pressure 109/54, heart rate 104, respirations 19. HEENT: Temporal wasting. Dry mucous membranes. NECK: Supple. Jugular venous pressure normal. LUNGS: Clear. CARDIAC: Regular rhythm. Rapid rate. Normal S1, S2 with a fourth heart sound. ABDOMEN: Soft, nontender. EXTREMITIES: No edema. Palpable bruit over AV fistula. LABORATORY DATA: On December 12, white count 10 and hemoglobin 9.3. Potassium 3.8, BUN 20, creatinine 2.8, albumin 2.1. Glucose 158. EKG, sinus rhythm, voltage criteria for left ventricular hypertrophy. IMPRESSION: 1. Sacral wound status post debridement. 2. Severe protein-calorie malnutrition. 3. Dysphagia. 4. Metabolic encephalopathy. 5. End-stage renal disease. 6. Hypertensive heart disease. 7. Chronic diastolic congestive heart failure. PLAN: The patient is stable from a cardiovascular standpoint for G-tube placement under routine anesthesia. The patient's cardiovascular regimen has been reviewed and updated. The patient should remain on DVT prophylaxis. Maintenance hydration while NPO is on order as well as continued hemodialysis with ultrafiltration based on clinical assessments of hemodynamics. Bulmaro Hester M.D. DR: GARDENIA JOB#: [id number] CC:
[2019-12-17] MEDS ORDERED: ceFAZolin sod 1 GM in D5W 55 ML IVPB ONE (05:30)
[2019-12-17] MEDS ORDERED: Lidocaine 1% MPF 10mg/ml 5ml ONE (06:30)
[2019-12-17] MEDS ORDERED: NS 500ML IVPB ONE (06:55)
--- NOTE | 2019-12-17 06:57 | NUR ---
NURSE NOTES: Pt transferred via gurney to GI lab for GT placement. Pt VSS. Wounds changed and pt just cleaned prior to transfer. Sent with IV Fiona henderson. Kept NPO past midnight. Consent signed by brother, witnessed by two RNs. Chart and consent sent with patient. Will endorse to day shift
--- NOTE | 2019-12-17 06:58 | Anethesia Preoperative Eval ---
Anesthesia Pre-op PMH/ROS General Date of Evaluation: Dec 17, 2019 Time of Evaluation: 06:25 Anesthesiologist: kev ASA Score: ASA 4 Mallampati Score Class I : Soft palate, uvula, fauces, pillars visible Class II: Soft palate, uvula, fauces visible Class III: Soft palate, base of uvula visible Class IV: Only hard plate visible Mallampati Classification: Class II Surgeon: alonzo Diagnosis: dysphagia Surgical Procedure: peg Anesthesia History: none Social History: smoking - nonsmoker Family History: no anesthesia problems Allergies: Coded Allergies: No Known Allergies (Unverified , 02/27/19) Medications: see eMAR Patient NPO?: Yes Past Medical History Cardiovascular: Reports: HTN, arrhythmia, other - hypercholesterolemia Gastrointestinal/Genitourinary: Reports: ESRD - on hd Neurologic/Psychiatric: Reports: dementia, CVA Endocrine: Reports: DM Hematology/Immune: Reports: anemia Musculoskeletal/Integumentary: Reports: other - infected sacral wound Anesthesia Pre-op Phys. Exam Physician Exam Last Vital Signs Date Time Temp Pulse Resp B/P (MAP) Pulse Ox O2 Delivery O2 Flow Rate FiO2 12/17/19 04:00 98.5 80 20 107/53 (71) 96 12/16/19 21:00 Room Air Constitutional: NAD Neurologic: other Cardiovascular: other - sinus rhythm w/ pvcs Respiratory: CTA Gastrointestinal: S/NT/ND Airway Exam Mallampati Score: Class II MO: limited Neck: flexible TMD: 2fb ROM: limited Anesthesia Pre-op A/P Labs Microbiology Date/Time Source Procedure Growth Status 12/14/19 09:50 Nasopharynx SARS-CoV-2 RdRp Gene Assay - Final Complete Hematology Test 12/17/19 06:10 White Blood Count Pending Red Blood Count Pending Hemoglobin Pending Hematocrit Pending Mean Corpuscular Volume Pending Mean Corpuscular Hemoglobin Pending Mean Corpuscular Hemoglobin Concent Pending Red Cell Distribution Width Pending Platelet Count Pending Mean Platelet Volume Pending Neutrophils (%) (Auto) Pending Lymphocytes (%) (Auto) Pending Monocytes (%) (Auto) Pending Eosinophils (%) (Auto) Pending Basophils (%) (Auto) Pending Coagulation Test 12/17/19 06:10 Prothrombin Time Pending Prothromb Time International Ratio Pending Chemistry Test 12/17/19 06:10 Sodium Level Pending Potassium Level Pending Chloride Level Pending Carbon Dioxide Level Pending Blood Urea Nitrogen Pending Creatinine Pending Estimat Glomerular Filtration Rate Pending Glucose Level Pending Calcium Level Pending Total Bilirubin Pending Aspartate Amino Transf (AST/SGOT) Pending Alanine Aminotransferase (ALT/SGPT) Pending Alkaline Phosphatase Pending Total Protein Pending Albumin Pending Globulin Pending Risk Assessment & Plan Assessment: asa4 Plan: mac Status Change Before Surgery: No Pre-Antibiotics Drug: ancef 1 gm Given Within 1 Hr of Incision: Yes Time Given: 06:57 Karen Patel MD Dec 17, 2019 06:58
[2019-12-17] MEDS ORDERED: fentaNYL 100 mcg/2 mL IV PRN (07:00)
[2019-12-17] MEDS ORDERED: Atropine Inj 1mg/10ml Syr IV PRN (07:00)
[2019-12-17] MEDS ORDERED: Midazolam 2mg/2ml Inj IVP PRN (07:00)
[2019-12-17] MEDS ORDERED: DiphenhydrAMINE 50mg/ml Inj IVP PRN (07:00)
--- NOTE | 2019-12-17 07:04 | Pre-Procedure Note/Attestation ---
Pre-Procedure Note/Attestation Complete Prior to Procedure Planned Procedure: not applicable Procedure Narrative: EGD PEG Indications for Procedure Pre-Operative Diagnosis: Dysphagia Attestation I attest that I discussed the nature of the procedure; its benefits; risks and complications; and alternatives (and the risks and benefits of such alternatives ), prior to the procedure, with the patient (or the patient's legal surgical sales representative). I attest that, if there was a reasonable possibility of needing a blood transfusion, the patient (or the patient's legal surgical sales representative) was given the [facility] standardized written summary, pursuant to the [place] Blood Safety Act ([place] Health and Safety Code # 1645, as amended). I attest that I re-evaluated the patient just prior to the surgery and that there has been no change in the patient's H&P, except as documented below: Willow Cee MD Dec 17, 2019 07:04
--- NOTE | 2019-12-17 07:04 | General Progress Note ---
Assessment/Plan Status: stable, progressing Assessment/Plan: Assessment - Anemia - multifactorial, but mainly due to CRF - Anorexia, malnutrition - OBS - Decubitus ulcer Recommendations - follow CBC - wound care - NPO - PEG today Subjective Allergies: Coded Allergies: No Known Allergies (Unverified , 02/27/19) Subjective Above noted NPO for PEG labs noted Objective Last 24 Hour Vital Signs Date Time Temp Pulse Resp B/P (MAP) Pulse Ox O2 Delivery O2 Flow Rate FiO2 12/17/19 04:00 98.5 80 20 107/53 (71) 96 12/17/19 00:00 98.6 95 20 94/58 (70) 97 12/16/19 21:00 Room Air 12/16/19 21:00 93 96/59 12/16/19 21:00 93 96/59 12/16/19 20:00 98.3 93 18 96/59 (71) 98 12/16/19 16:00 97.6 99 18 119/61 (80) 98 12/16/19 12:00 96.4 80 18 101/58 (72) 97 12/16/19 09:00 Room Air 12/16/19 08:49 102 121/54 12/16/19 08:00 98.7 102 18 121/54 (76) 98 Intake and Output 12/16/19 12/17/19 19:00 07:00 Intake Total 300 ml Balance 300 ml Other 300 ml # Bowel Movements 1 Laboratory Tests 12/16/19 07:05: Hepatitis B Surface Antigen [Pending] 12/17/19 06:10: White Blood Count [Pending], Red Blood Count [Pending], Hemoglobin [Pending], Hematocrit [Pending], Mean Corpuscular Volume [Pending], Mean Corpuscular Hemoglobin [Pending], Mean Corpuscular Hemoglobin Concent [Pending], Red Cell Distribution Width [Pending], Platelet Count [Pending], Mean Platelet Volume [ Pending], Neutrophils (%) (Auto) [Pending], Lymphocytes (%) (Auto) [Pending], Monocytes (%) (Auto) [Pending], Eosinophils (%) (Auto) [Pending], Basophils (%) (Auto) [Pending], Prothrombin Time [Pending], Prothromb Time International Ratio [Pending], Sodium Level [Pending], Potassium Level [Pending], Chloride Level [Pending], Carbon Dioxide Level [Pending], Blood Urea Nitrogen [Pending], Creatinine [Pending], Estimat Glomerular Filtration Rate [Pending], Glucose Level [Pending], Calcium Level [Pending], Total Bilirubin [Pending], Aspartate Amino Transf (AST/SGOT) [Pending], Alanine Aminotransferase (ALT/SGPT) [Pending] , Alkaline Phosphatase [Pending], Total Protein [Pending], Albumin [Pending], Globulin [Pending] Height (Feet): 5 Height (Inches): 5.00 Weight (Pounds): 111 Objective Thin AA woman NCAT supple CTA RRR abd soft flat ND Ext no edema (+) decub ulcers OBS Willow Cee MD Dec 17, 2019 07:04
[2019-12-17 07:17] LABS: ALANINE AMINOTRANSFERASE 21 U/L (12-78); ALBUMIN 1.8 G/DL (3.4-5.0); ALBUMIN/GLOBULIN RATIO 0.4 (1.0-2.7); ALKALINE PHOSPHATASE 95 U/L (46-116); ANION GAP 4 mmol/L (5-15); ASPARTATE AMINO TRANSFERASE 20 U/L (15-37); BILIRUBIN,TOTAL 0.4 MG/DL (0.2-1.0); BLOOD UREA NITROGEN 37 mg/dL (7-18); CARBON DIOXIDE 35 MMOL/L (21-32); CHLORIDE 100 MMOL/L (98-107); CREATININE 4.9 MG/DL (0.55-1.30); HEMATOCRIT 25.9 % (37.0-47.0); HEMOGLOBIN 7.9 G/DL (12.0-16.0); MEAN CORPUSCULAR VOLUME 92 FL (80-99); PLATELET COUNT 310 K/UL (150-450); POTASSIUM 4.4 MMOL/L (3.5-5.1); RED BLOOD COUNT 2.81 M/UL (4.20-5.40); RED CELL DISTRIBUTION WIDTH 14.4 % (11.6-14.8); SODIUM 139 MMOL/L (136-145); WHITE BLOOD COUNT 13.6 K/UL (4.8-10.8)
[2019-12-17 07:27] LABS: INR 1.1 (0.9-1.1)
--- NOTE | 2019-12-17 07:59 | Immediate Post-Op Evaluation ---
Immediate Post-Op Evalulation Immediate Post-Op Evalulation Procedure: egd/peg Date of Evaluation: Dec 17, 2019 Time of Evaluation: 07:58 IV Fluids: 250ml 0.9ns Blood Products: none Estimated Blood Loss: negligible Blood Pressure Systolic: 101 Blood Pressure Diastolic: 43 Pulse Rate: 90 Respiratory Rate: 18 O2 Sat by Pulse Oximetry: 99 Temperature (Fahrenheit): 97.9 Pain Score (1-10): 0 Nausea: No Vomiting: No Complications none Patient Status: awake, reacts, patent Hydration Status: adequate Drug: ancef 1gm Given Within 1 Hr of Incision: Yes Karen Patel MD Dec 17, 2019 07:59
--- NOTE | 2019-12-17 08:01 | 48 Hour Post Anesthesia Eval ---
Post Anesthesia Evaluation Procedure: egd/peg Date of Evaluation: Dec 17, 2019 Time of Evaluation: 08:00 Blood Pressure Systolic: 113 0: 46 Pulse Rate: 90 Respiratory Rate: 18 Temperature (Fahrenheit): 97.9 O2 Sat by Pulse Oximetry: 100 Airway: patent Nausea: No Vomiting: No Pain Intensity: 0 Hydration Status: adequate Cardiopulmonary Status: stable Mental Status/LOC: patient returned to baseline Post-Anesthesia Complications: none Follow-up care needed: N/A Karen Patel MD Dec 17, 2019 08:01
--- NOTE | 2019-12-17 08:06 | NUR ---
HAND-OFF: Report given to Adriana RODRIGUEZ.
--- NOTE | 2019-12-17 08:30 | NUR ---
nurse notes received patient from GI lab, via jeanierariadna s/p G-tube placement, dressing clean dry and intact, patient asleep but easily arousable no sign of distress, on going IVF patent and infusing well , repositioned patient for comfort and good circulation , v/s taken and monitored,kept clean dry and comfortable needs met and anticipated pauline conrad
--- NOTE | 2019-12-17 09:30 | NUR ---
nurse notes wound care done by NOC shift , per NOC shift RN she did the wound care rior patient went for procedure pauline conrad
[2019-12-17] MEDS: Zinc Sulfate 220mg ORAL SCH (09:58)
[2019-12-17] MEDS: Ascorbic Acid 500mg tab ORAL SCH (09:58)
[2019-12-17] MEDS: Megace 400mg/10ml Susp ORAL SCH ×2 (09:58→17:21)
[2019-12-17] MEDS: Aspirin Baby 81mg ORAL SCH (09:59)
[2019-12-17] MEDS: Metoprolol Tartrate 50mg tab ORAL SCH ×2 (09:59→21:32)
[2019-12-17] MEDS: Nephrovite tab (Rena-Vite) ORAL SCH (09:59)
[2019-12-17] MEDS: Dakin's 0.125% Soln (Quarter Strength) 16oz TOPIC SCH (10:01)
[2019-12-17] MEDS: Heparin 5000 units/ml inj SUBQ SCH ×2 (10:05→21:33)
--- NOTE | 2019-12-17 10:18 | General Progress Note ---
Assessment/Plan Problem List: (1) Dementia ICD Codes: F03.90 - Unspecified dementia without behavioral disturbance SNOMED: 26667148 (2) Weakness ICD Codes: R53.1 - Weakness SNOMED: 94765253 (3) ESRD (end stage renal disease) ICD Codes: N18.6 - End stage renal disease SNOMED: 96557119 (4) Hypertensive nephrosclerosis ICD Codes: I12.9 - Hypertensive chronic kidney disease with stage 1 through stage 4 chronic kidney disease, or unspecified chronic kidney disease SNOMED: 064346484 (5) CVA, old, cognitive deficits ICD Codes: I69.319 - Unspecified symptoms and signs involving cognitive functions following cerebral infarction SNOMED: 46305233, 148859694, 411160521, 288893138 (6) Deep tissue injury ICD Codes: T14.8XXA - Other injury of unspecified body region, initial encounter SNOMED: 298491921 (7) acute toxic encephalopathy (8) Severe malnutrition ICD Codes: E43 - Unspecified severe protein-calorie malnutrition SNOMED: 08774362 (9) Sacral decubitus ulcer, stage IV ICD Codes: L89.154 - Pressure ulcer of sacral region, stage 4 SNOMED: 605760231, 437887465 Status: stable, progressing Assessment/Plan: Continue current treatment. NPO stable for GT today Hemodialysis per renal DVT and stress ulcer prophylaxis Wound care per surgery Frequent turning every 2 hours Psych treatment per psychiatry Subjective ROS Limited/Unobtainable: No Constitutional: Reports: malaise, weakness HEENT: Reports: no symptoms Cardiovascular: Reports: no symptoms Respiratory: Reports: no symptoms Gastrointestinal/Abdominal: Reports: difficulty swallowing, poor appetite, poor fluid intake Genitourinary: Reports: no symptoms Neurologic/Psychiatric: Reports: anxiety, emotional problems, pre-existing deficit Endocrine: Reports: no symptoms Hematologic/Lymphatic: Reports: anemia Allergies: Coded Allergies: No Known Allergies (Unverified , 02/27/19) All Systems: reviewed and negative except above Subjective No overnight events. Remains somnolent and withdrawn. No reports of bleeding. No shortness of breath. Labs reviewed. GI and renal input appreciated. EKG noted. npo for gt replacement today Objective Last 24 Hour Vital Signs Date Time Temp Pulse Resp B/P (MAP) Pulse Ox O2 Delivery O2 Flow Rate FiO2 12/17/19 09:59 88 105/63 12/17/19 09:57 20 105/63 (77) 100 12/17/19 09:20 Room Air 12/17/19 09:00 18 111/59 (76) 100 12/17/19 08:35 97.5 21 111/43 (65) 97 12/17/19 08:15 98.0 88 16 108/42 100 Nasal Cannula 3 12/17/19 08:05 89 15 113/42 100 Nasal Cannula 3 12/17/19 08:01 90 18 100 12/17/19 07:59 90 18 99 12/17/19 07:55 90 18 113/46 99 Nasal Cannula 3 12/17/19 07:50 88 21 105/45 99 Nasal Cannula 3 12/17/19 07:45 97.9 90 18 101/43 99 Nasal Cannula 3 12/17/19 04:00 98.5 80 20 107/53 (71) 96 12/17/19 00:00 98.6 95 20 94/58 (70) 97 12/16/19 21:00 Room Air 12/16/19 21:00 93 96/59 12/16/19 21:00 93 96/59 12/16/19 20:00 98.3 93 18 96/59 (71) 98 12/16/19 16:00 97.6 99 18 119/61 (80) 98 12/16/19 12:00 96.4 80 18 101/58 (72) 97 Intake and Output 12/16/19 12/17/19 19:00 07:00 Intake Total 300 ml Balance 300 ml Other 300 ml # Bowel Movements 1 Laboratory Tests 12/17/19 06:10: White Blood Count 13.6H, Red Blood Count 2.81L, Hemoglobin 7.9L, Hematocrit 25.9L, Mean Corpuscular Volume 92, Mean Corpuscular Hemoglobin 28.3, Mean Corpuscular Hemoglobin Concent 30.7L, Red Cell Distribution Width 14.4, Platelet Count 310, Mean Platelet Volume 6.4L, Neutrophils (%) (Auto) , Lymphocytes (%) (Auto) , Monocytes (%) (Auto) , Eosinophils (%) (Auto) , Basophils (%) (Auto) , Differential Total Cells Counted 100, Neutrophils % ( Manual) 67, Lymphocytes % (Manual) 25, Monocytes % (Manual) 8, Eosinophils % ( Manual) 0, Basophils % (Manual) 0, Band Neutrophils 0, Platelet Estimate Adequate, Platelet Morphology Normal, Hypochromasia 1+, Anisocytosis 1+, Prothrombin Time 11.9H, Prothromb Time International Ratio 1.1, Sodium Level 139 , Potassium Level 4.4, Chloride Level 100, Carbon Dioxide Level 35H, Anion Gap 4L, Blood Urea Nitrogen 37H, Creatinine 4.9H, Estimat Glomerular Filtration Rate 10.5, Glucose Level 117H, Calcium Level 9.0, Total Bilirubin 0.4, Aspartate Amino Transf (AST/SGOT) 20, Alanine Aminotransferase (ALT/SGPT) 21, Alkaline Phosphatase 95, Total Protein 6.3L, Albumin 1.8L, Globulin 4.5, Albumin /Globulin Ratio 0.4L Height (Feet): 5 Height (Inches): 5.00 Weight (Pounds): 111 Objective General Appearance: WD/WN, lethargic, confused EENT: PERRL/EOMI Neck: non-tender, normal alignment, supple Cardiovascular: normal peripheral pulses, normal rate, regular rhythm Respiratory/Chest: chest wall non-tender, lungs clear, normal breath sounds Abdomen: normal bowel sounds, non tender, soft, no organomegaly, no mass Edema: no edema noted Arm (L), no edema noted Arm (R) Neurologic: surgical instruments inspector II-XII grossly normal, alert, responsive, disoriented Skin: normal pigmentation Lymphatic: normal anterior cervical (L), normal anterior cervical (R) Freddy Quevedo MD Dec 17, 2019 10:18
--- NOTE | 2019-12-17 12:04 | NUR ---
RD ASSESSMENT & RECOMMENDATIONS SEE CARE ACTIVITY FOR COMPLETE ASSESSMENT DAILY ESTIMATED NEEDS: Needs based on Renal, HD, wound, 45.5kg 30-40 kcals/kg 1954-5304 total kcals 1.25-2 g protein/kg 57-91 g total protein Fluid per MD, on HD NUTRITION DIAGNOSIS: Increased kcal/prot intake needs R/T renal dysfunction, underweight status, wound healing as evidenced by ESRD dx, on HD, pt is 73% of [place] Body Weight w/ recent sacral stage 4 wound, s/p surgical debridement, pt os now s/p PEG placement. CURRENT DIET:NPO PO DIET RECOMMENDATIONS: liberalized regular diet/ texture as tolerated or per LABORATORY OPERATIONS COORDINATOR for oral grat ENTERAL NUTRITION RECOMMENDATIONS: Nepro w/ goal of 40ml/hr x24 hrs to provide 960ml, 1728 kcal, 78g pro, 698ml free H2O - As medically able w/ GI access, start Nepro @20ml/hr for 6 hrs, advance 5ml/hr q4 hrs to goal. - Flush per MD, on HD - HOB over 30 degrees ADDITIONAL RECOMMENDATIONS: * TF recs as above * LABORATORY OPERATIONS COORDINATOR if appropriate for oral grat * Wound healing: SIS BID + Nephrovite qdaily Vit C 250 mg BID (or per nephro), ZnSO4 220mg qd (or per Nephro) * Maintain calibrated bed scale wts; 45.5kg on calibrated bed (12/16) .
--- NOTE | 2019-12-17 12:15 | Surgery Progress Note ---
Surgery Progress Note Subjective Additional Comments leukocytosis anemia afebrile comfortable appearing on abx Objective Last 24 Hour Vital Signs Date Time Temp Pulse Resp B/P (MAP) Pulse Ox O2 Delivery O2 Flow Rate FiO2 12/17/19 09:59 88 105/63 12/17/19 09:57 20 105/63 (77) 100 12/17/19 09:20 Room Air 12/17/19 09:00 18 111/59 (76) 100 12/17/19 08:35 97.5 21 111/43 (65) 97 12/17/19 08:15 98.0 88 16 108/42 100 Nasal Cannula 3 12/17/19 08:05 89 15 113/42 100 Nasal Cannula 3 12/17/19 08:01 90 18 100 12/17/19 07:59 90 18 99 12/17/19 07:55 90 18 113/46 99 Nasal Cannula 3 12/17/19 07:50 88 21 105/45 99 Nasal Cannula 3 12/17/19 07:45 97.9 90 18 101/43 99 Nasal Cannula 3 12/17/19 04:00 98.5 80 20 107/53 (71) 96 12/17/19 00:00 98.6 95 20 94/58 (70) 97 12/16/19 21:00 Room Air 12/16/19 21:00 93 96/59 12/16/19 21:00 93 96/59 12/16/19 20:00 98.3 93 18 96/59 (71) 98 12/16/19 16:00 97.6 99 18 119/61 (80) 98 I&O Intake and Output 12/16/19 12/17/19 19:00 07:00 Intake Total 300 ml Balance 300 ml Other 300 ml # Bowel Movements 1 Dressing: saturated Wound: other Cardiovascular: RSR Respiratory: decreased breath sounds Abdomen: soft, non-tender, present bowel sounds Extremities: no tenderness, no cyanosis, other Laboratory Tests Test 12/17/19 06:10 White Blood Count 13.6 K/UL (4.8-10.8) H Red Blood Count 2.81 M/UL (4.20-5.40) L Hemoglobin 7.9 G/DL (12.0-16.0) L Hematocrit 25.9 % (37.0-47.0) L Mean Corpuscular Volume 92 FL (80-99) Mean Corpuscular Hemoglobin 28.3 PG (27.0-31.0) Mean Corpuscular Hemoglobin Concent 30.7 G/DL (32.0-36.0) L Red Cell Distribution Width 14.4 % (11.6-14.8) Platelet Count 310 K/UL (150-450) Mean Platelet Volume 6.4 FL (6.5-10.1) L Neutrophils (%) (Auto) % (45.0-75.0) Lymphocytes (%) (Auto) % (20.0-45.0) Monocytes (%) (Auto) % (1.0-10.0) Eosinophils (%) (Auto) % (0.0-3.0) Basophils (%) (Auto) % (0.0-2.0) Differential Total Cells Counted 100 Neutrophils % (Manual) 67 % (45-75) Lymphocytes % (Manual) 25 % (20-45) Monocytes % (Manual) 8 % (1-10) Eosinophils % (Manual) 0 % (0-3) Basophils % (Manual) 0 % (0-2) Band Neutrophils 0 % (0-8) Platelet Estimate Adequate Platelet Morphology Normal Hypochromasia 1+ Anisocytosis 1+ Prothrombin Time 11.9 SEC (9.30-11.50) H Prothromb Time International Ratio 1.1 (0.9-1.1) Sodium Level 139 MMOL/L (136-145) Potassium Level 4.4 MMOL/L (3.5-5.1) Chloride Level 100 MMOL/L (98-107) Carbon Dioxide Level 35 MMOL/L (21-32) H Anion Gap 4 mmol/L (5-15) L Blood Urea Nitrogen 37 mg/dL (7-18) H Creatinine 4.9 MG/DL (0.55-1.30) H Estimat Glomerular Filtration Rate 10.5 mL/min (>60) Glucose Level 117 MG/DL (74-106) H Calcium Level 9.0 MG/DL (8.5-10.1) Total Bilirubin 0.4 MG/DL (0.2-1.0) Aspartate Amino Transf (AST/SGOT) 20 U/L (15-37) Alanine Aminotransferase (ALT/SGPT) 21 U/L (12-78) Alkaline Phosphatase 95 U/L (46-116) Total Protein 6.3 G/DL (6.4-8.2) L Albumin 1.8 G/DL (3.4-5.0) L Globulin 4.5 g/dL Albumin/Globulin Ratio 0.4 (1.0-2.7) L Plan Problems: (1) Sacral decubitus ulcer, stage IV Assessment & Plan: 74-year-old female with large DTI prior necrotic tissue significant requiring debridement status post excisional debridement identifying nonviable tissue down to coccyx and sacrum. Patient is been doing well and recovering the nursing facility with good local care. She now presents still has a large open wound which was goal to have complete granulation potential closure and coverage at some point. Unfortunately given her nutritional status and decreased oral intake she is deteriorated somewhat does have some necrotic edges and slough noted in the wound bed. There is some granulation tissue approximately 6070% with some backbleeding as well. Currently no nausea vomiting fever chills. Labs noted. Albumin low. BMI low. Poor nutritional status. At this time would recommend PEG tube placement and initiation of tube feeds along with oral intake for gratification. Patient needs nutritional optimization for her wounds and her overall care plan. We will follow with recommendations Pt presented on admission with multiple Pressure injuries. Full thickness stage 4Sacral Pressure injury with undermined borders(L)12.5cm x (W)13.5cm, Undermining clockwise 2-5 by 2.5cm @3o'clock, Undermining Clockwise 10-12 by 2.6cm@10o'clock. Scattered slough ,10% necrotic at base. Bone is palpable. Undermined borders clockwise 9-3o'clock is indurated and necrotic. Surrounding perimeter of wound is indurated, purpuric and red tinged. At apex of wound along borders is an area of necrosis from 11-3o'clock.Wound is malodorous. Small amt taylor coloured exudate noted. At R Sacrum, in close proximity to above Sacral wound is a DTPI(L)6cm x (W)3cm. Base of pressure injury is purpuric with linear area of blood filled blister. Marginal erythema along borders.Marginal erythema along borders. At R Iliac is and area of hyperpigmentation with DTPI evolving along L aspect of borders of hyperpigmented area(L)2cm x ((W)2.2cm. DTPI L Ischium(L)6cm x (W)6.5cm. Base of wound is indurated, purpuric with surrounding non-blanching erythema. Scattered area of hypopigmentation noted to most medial aspect of L Ischium and perineum. Unstageable Pressure injury R Heel. Stable dry eschar noted. (L)2cm x (W)3.4cm. Periwound R Heel is blanchable but boggy. DTPI Medial L Heel(L)3cm x (W)4cm. Base of wound is maroon and indurated. Unstageable Pressure injury L lateral Malleolus(L)3cm x (W)3cm. 100% Dry brown/ black eschar noted at base of wound. DTPI R Lateral Malleolus(L)0.5cm x (W)2cm. Base of wound is indurated purpuric with marginal erythema along borders. Tx.Plan: Cleanse Sacral wound with Dakin's 0.125% Adwoa. Loosely pack sacral wound with Dakin's moistened KERLIX. Apply Moisture Barrier Paste along borders. Cover with Optifoam drsg DAILY and PRN Apply Cavilon Skin Barrier to R Iliac. R sacrum,L Ischium. Cover each site with Optifoam drsgs. Change every 3 days and prn. Apply Betadine to Malleoli and both heels. Cover each site with Optifoam Drsgs. Change every 3days and prn. Reposition at least every 2hours or as tolerated. Place pillow between knees. Off-load heels with pillows. Air fluidized Mattress. (2) Severe malnutrition Assessment & Plan: DAILY ESTIMATED NEEDS: Needs based on Renal, HD, wound, 45.5kg 30-40 kcals/kg 2797-0317 total kcals 1.25-2 g protein/kg 57-91 g total protein Fluid per MD, on HD NUTRITION DIAGNOSIS: Increased kcal/prot intake needs R/T renal dysfunction, underweight status, wound healing as evidenced by ESRD dx, on HD, pt is 73% of [place] Body Weight w/ recent sacral stage 4 wound, s/p surgical debridement, pt os now s/p PEG placement. CURRENT DIET:NPO PO DIET RECOMMENDATIONS: liberalized regular diet/ texture as tolerated or per WAREHOUSE AND RECEIVING SUPERVISOR for oral grat ENTERAL NUTRITION RECOMMENDATIONS: Nepro w/ goal of 40ml/hr x24 hrs to provide 960ml, 1728 kcal, 78g pro, 698ml free H2O - As medically able w/ GI access, start Nepro @20ml/hr for 6 hrs, advance 5ml/hr q4 hrs to goal. - Flush per MD, on HD - HOB over 30 degrees ADDITIONAL RECOMMENDATIONS: * TF recs as above * WAREHOUSE AND RECEIVING SUPERVISOR if appropriate for oral grat * Wound healing: SIS BID + Nephrovite qdaily Vit C 250 mg BID (or per nephro), ZnSO4 220mg qd (or per Nephro) * Maintain calibrated bed scale wts; 45.5kg on calibrated bed (12/16) (3) Dementia (4) Leukocytosis (5) Weakness (6) ESRD (end stage renal disease) (7) Hypertensive nephrosclerosis (8) Anemia in chronic kidney disease (9) CVA, old, cognitive deficits (10) Deep tissue injury (11) acute toxic encephalopathy Jesse Quinn Dec 17, 2019 12:15
--- NOTE | 2019-12-17 14:17 | NUR ---
CASE MANAGEMENT:REVIEW SI;S/P PEG PLACEMENT TODAY. AC TOXIC ENCEPHALOPATHY. ESRD on HD. 98.0 88 21 111/43 97% ON RA WBC 13.6 H/H 7.9/25.9 CO2 35 BUN 37 CR 4.9 IS;IVF D5 @ 30 ML/HR LOPRESSOR Q12 HEPARIN SUBQ Q12 LOPRESSOR Q12 PEG PLACEMENT MED SURG STATUS DCP;CV TERRACE PLAN; HOLD TUBE FEEDING GT MEDS ONLY HEMODIALYSIS
--- NOTE | 2019-12-17 19:16 | NUR ---
HAND-OFF: Report given to Eveline Coker RN accordingly pauline conrad.
--- NOTE | 2019-12-17 19:33 | NUR ---
NURSE NOTES: Received patient in bed, non verbal, but able to open her eyes spontaneously, patient is total care, on p200 mattress, IV site is clean dry and intact. Patient is incontinent of bowel and bladder, call light is within reach, bed is lowered, locked, alarm is on, will continue to monitor for comfort and safety.
--- NOTE | 2019-12-17 19:58 | Nephrology Progress Note ---
Assessment/Plan Problem List: (1) ESRD (end stage renal disease) (2) Hypertensive nephrosclerosis (3) CVA, old, cognitive deficits (4) Severe malnutrition (5) Sacral decubitus ulcer, stage IV Plan HD TTS PEG decubitus care Subjective ROS Limited/Unobtainable: Yes Objective Objective Last 24 Hour Vital Signs Date Time Temp Pulse Resp B/P (MAP) Pulse Ox O2 Delivery O2 Flow Rate FiO2 12/17/19 16:00 97.7 93 18 108/48 (68) 100 12/17/19 12:16 98.0 72 20 108/66 (80) 100 12/17/19 09:59 88 105/63 12/17/19 09:57 20 105/63 (77) 100 12/17/19 09:20 Room Air 12/17/19 09:00 70 18 111/59 (76) 100 12/17/19 08:35 97.5 79 21 111/43 (65) 97 12/17/19 08:15 98.0 88 16 108/42 100 Nasal Cannula 3 12/17/19 08:05 89 15 113/42 100 Nasal Cannula 3 12/17/19 08:01 90 18 100 12/17/19 07:59 90 18 99 12/17/19 07:55 90 18 113/46 99 Nasal Cannula 3 12/17/19 07:50 88 21 105/45 99 Nasal Cannula 3 12/17/19 07:45 97.9 90 18 101/43 99 Nasal Cannula 3 12/17/19 04:00 98.5 80 20 107/53 (71) 96 12/17/19 00:00 98.6 95 20 94/58 (70) 97 12/16/19 21:00 Room Air 12/16/19 21:00 93 96/59 12/16/19 21:00 93 96/59 12/16/19 20:00 98.3 93 18 96/59 (71) 98 Intake and Output 12/16/19 12/17/19 19:00 07:00 Intake Total 300 ml Balance 300 ml Other 300 ml # Bowel Movements 1 Laboratory Tests 12/17/19 06:10: White Blood Count 13.6H, Red Blood Count 2.81L, Hemoglobin 7.9L, Hematocrit 25.9L, Mean Corpuscular Volume 92, Mean Corpuscular Hemoglobin 28.3, Mean Corpuscular Hemoglobin Concent 30.7L, Red Cell Distribution Width 14.4, Platelet Count 310, Mean Platelet Volume 6.4L, Neutrophils (%) (Auto) , Lymphocytes (%) (Auto) , Monocytes (%) (Auto) , Eosinophils (%) (Auto) , Basophils (%) (Auto) , Differential Total Cells Counted 100, Neutrophils % ( Manual) 67, Lymphocytes % (Manual) 25, Monocytes % (Manual) 8, Eosinophils % ( Manual) 0, Basophils % (Manual) 0, Band Neutrophils 0, Platelet Estimate Adequate, Platelet Morphology Normal, Hypochromasia 1+, Anisocytosis 1+, Prothrombin Time 11.9H, Prothromb Time International Ratio 1.1, Sodium Level 139 , Potassium Level 4.4, Chloride Level 100, Carbon Dioxide Level 35H, Anion Gap 4L, Blood Urea Nitrogen 37H, Creatinine 4.9H, Estimat Glomerular Filtration Rate 10.5, Glucose Level 117H, Calcium Level 9.0, Total Bilirubin 0.4, Aspartate Amino Transf (AST/SGOT) 20, Alanine Aminotransferase (ALT/SGPT) 21, Alkaline Phosphatase 95, Total Protein 6.3L, Albumin 1.8L, Globulin 4.5, Albumin /Globulin Ratio 0.4L Height (Feet): 5 Height (Inches): 5.00 Weight (Pounds): 112 General Appearance: no apparent distress, lethargic, confused Neck: normal alignment Cardiovascular: regular rhythm Respiratory/Chest: lungs clear Abdomen: non tender, soft Extremities: no edema Neurologic: motor weakness, disoriented Dylon Stringer MD Dec 17, 2019 19:57
[2019-12-17] MEDS: Epoetin Alfa-EPBX(ESRD on dialysis)3000 units/ml vial SUBQ SCH (21:32)
[2019-12-17] MEDS: Atorvastatin 80mg tab ORAL SCH (21:32)
[2019-12-18] VITALS (7 sets, daily range): BP systolic 86–118; BP diastolic 40–74
--- NOTE | 2019-12-18 00:04 | Cardiology Progress Note ---
Subjective DATE OF SERVICE: Dec 17, 2019 Remains withdrawn and lethargic Now s/p uncomplicated PEG. No fevers/chills, N/V,D. No SOB. REVIEW OF SYSTEMS: unchanged from assessment of 12/15/19 However noted that atorvastatin dose was decreased to 10mg during last hospitalization, based on lipid panel. Objective Last 24 Hour Vital Signs Date Time Temp Pulse Resp B/P (MAP) Pulse Ox O2 Delivery O2 Flow Rate FiO2 12/17/19 22:02 Room Air 12/17/19 21:33 74 129/78 12/17/19 21:32 74 129/78 12/17/19 20:00 97.7 96 20 114/70 (85) 98 12/17/19 16:00 97.7 93 18 108/48 (68) 100 12/17/19 12:16 98.0 72 20 108/66 (80) 100 12/17/19 09:59 88 105/63 12/17/19 09:57 20 105/63 (77) 100 12/17/19 09:20 Room Air 12/17/19 09:00 70 18 111/59 (76) 100 12/17/19 08:35 97.5 79 21 111/43 (65) 97 12/17/19 08:15 98.0 88 16 108/42 100 Nasal Cannula 3 12/17/19 08:05 89 15 113/42 100 Nasal Cannula 3 12/17/19 08:01 90 18 100 12/17/19 07:59 90 18 99 12/17/19 07:55 90 18 113/46 99 Nasal Cannula 3 12/17/19 07:50 88 21 105/45 99 Nasal Cannula 3 12/17/19 07:45 97.9 90 18 101/43 99 Nasal Cannula 3 12/17/19 04:00 98.5 80 20 107/53 (71) 96 HEENT: normal ENT inspection RHYTHM: ST LUNGS: lungs clear bilaterally CARDIAC: regular rhythm, normal S1 and S2, rapid rate ABDOMEN: non tender, soft, no organomegaly, distended, G-Tube intact EXTREMITIES: No edema, other - Palpable bruit over UE AV fistula Laboratory Tests Test 12/17/19 06:10 White Blood Count 13.6 K/UL (4.8-10.8) H Red Blood Count 2.81 M/UL (4.20-5.40) L Hemoglobin 7.9 G/DL (12.0-16.0) L Hematocrit 25.9 % (37.0-47.0) L Mean Corpuscular Volume 92 FL (80-99) Mean Corpuscular Hemoglobin 28.3 PG (27.0-31.0) Mean Corpuscular Hemoglobin Concent 30.7 G/DL (32.0-36.0) L Red Cell Distribution Width 14.4 % (11.6-14.8) Platelet Count 310 K/UL (150-450) Mean Platelet Volume 6.4 FL (6.5-10.1) L Neutrophils (%) (Auto) % (45.0-75.0) Lymphocytes (%) (Auto) % (20.0-45.0) Monocytes (%) (Auto) % (1.0-10.0) Eosinophils (%) (Auto) % (0.0-3.0) Basophils (%) (Auto) % (0.0-2.0) Differential Total Cells Counted 100 Neutrophils % (Manual) 67 % (45-75) Lymphocytes % (Manual) 25 % (20-45) Monocytes % (Manual) 8 % (1-10) Eosinophils % (Manual) 0 % (0-3) Basophils % (Manual) 0 % (0-2) Band Neutrophils 0 % (0-8) Platelet Estimate Adequate Platelet Morphology Normal Hypochromasia 1+ Anisocytosis 1+ Prothrombin Time 11.9 SEC (9.30-11.50) H Prothromb Time International Ratio 1.1 (0.9-1.1) Sodium Level 139 MMOL/L (136-145) Potassium Level 4.4 MMOL/L (3.5-5.1) Chloride Level 100 MMOL/L (98-107) Carbon Dioxide Level 35 MMOL/L (21-32) H Anion Gap 4 mmol/L (5-15) L Blood Urea Nitrogen 37 mg/dL (7-18) H Creatinine 4.9 MG/DL (0.55-1.30) H Estimat Glomerular Filtration Rate 10.5 mL/min (>60) Glucose Level 117 MG/DL (74-106) H Calcium Level 9.0 MG/DL (8.5-10.1) Total Bilirubin 0.4 MG/DL (0.2-1.0) Aspartate Amino Transf (AST/SGOT) 20 U/L (15-37) Alanine Aminotransferase (ALT/SGPT) 21 U/L (12-78) Alkaline Phosphatase 95 U/L (46-116) Total Protein 6.3 G/DL (6.4-8.2) L Albumin 1.8 G/DL (3.4-5.0) L Globulin 4.5 g/dL Albumin/Globulin Ratio 0.4 (1.0-2.7) L Assessment/Plan Assessment/Plan Severe protein/calorie malnutrition Anemia of CKD ESRD Dysphagia - s/p Gtube. Hx CVA with dementia Metabolic encephalopathy Sinus tachycardia Hypertension/HHD - now with lower BP range. Chronic diastolic CHF Sacral wound - s/p debridement HD/UF Free water replacement as needed DVT prophylaxis DC megace DC clonidine patch Lower atorvastatin dosing Bulmaro Hester MD Dec 18, 2019 00:04
[2019-12-18] MEDS ORDERED: Heparin Sod 1000 units/ml 10ml IV PRN (06:00)
--- NOTE | 2019-12-18 07:35 | NUR ---
NURSE NOTES: Received patient in bed awake,non verbal, but able to open her eyes spontaneously,no sign of distress,no fascial grimace noted, on p200 mattress, IVF on going, G tube clamped is clean dry and intact. call light is within reach, bed is lowered, locked, alarm is on, will continue to monitor for comfort and safety. pauline conrad
--- NOTE | 2019-12-18 07:38 | NUR ---
HAND-OFF: Report given to Adriana RODRIGUEZ.
[2019-12-18] MEDS: Aspirin Baby 81mg ORAL SCH (08:44)
[2019-12-18] MEDS: Ascorbic Acid 500mg tab ORAL SCH (08:45)
[2019-12-18] MEDS: Nephrovite tab (Rena-Vite) ORAL SCH (08:45)
[2019-12-18] MEDS: Metoprolol Tartrate 50mg tab ORAL SCH ×2 (08:45→20:36)
[2019-12-18] MEDS: Zinc Sulfate 220mg ORAL SCH (08:45)
[2019-12-18] MEDS: Dakin's 0.125% Soln (Quarter Strength) 16oz TOPIC SCH ×2 (08:46→20:36)
[2019-12-18] MEDS: Heparin 5000 units/ml inj SUBQ SCH ×2 (08:46→20:35)
--- NOTE | 2019-12-18 10:55 | Surgery Progress Note ---
Surgery Progress Note Subjective Additional Comments comfortable appearing no n/v/f/c on side on mattress Objective Last 24 Hour Vital Signs Date Time Temp Pulse Resp B/P (MAP) Pulse Ox O2 Delivery O2 Flow Rate FiO2 12/18/19 08:45 83 97/45 12/18/19 08:30 Room Air 12/18/19 08:00 96.7 83 18 97/45 (62) 94 12/18/19 04:00 96.3 82 20 99/69 (79) 98 12/18/19 00:00 97.0 77 18 99/74 (82) 94 12/17/19 22:02 Room Air 12/17/19 21:33 74 129/78 12/17/19 21:32 74 129/78 12/17/19 20:00 97.7 96 20 114/70 (85) 98 12/17/19 16:00 97.7 93 18 108/48 (68) 100 12/17/19 12:16 98.0 72 20 108/66 (80) 100 I&O Intake and Output 12/17/19 12/18/19 19:00 07:00 Intake Total 570 ml 480 ml Output Total 1000 ml Balance 570 ml -520 ml Intake Oral 100 ml IV Total 570 ml 80 ml Other 300 ml Output Hemodialysis UF 1000 ml # Voids 1 # Bowel Movements 1 Dressing: saturated Wound: clean Cardiovascular: RSR Respiratory: decreased breath sounds Abdomen: soft, non-tender, present bowel sounds Extremities: no edema, no tenderness, no cyanosis Plan Problems: (1) Sacral decubitus ulcer, stage IV Assessment & Plan: 74-year-old female with large DTI prior necrotic tissue significant requiring debridement status post excisional debridement identifying nonviable tissue down to coccyx and sacrum. Patient is been doing well and recovering the nursing facility with good local care. She now presents still has a large open wound which was goal to have complete granulation potential closure and coverage at some point. Unfortunately given her nutritional status and decreased oral intake she is deteriorated somewhat does have some necrotic edges and slough noted in the wound bed. There is some granulation tissue approximately 6070% with some backbleeding as well. Currently no nausea vomiting fever chills. Labs noted. Albumin low. BMI low. Poor nutritional status. At this time would recommend PEG tube placement and initiation of tube feeds along with oral intake for gratification. Patient needs nutritional optimization for her wounds and her overall care plan. We will follow with recommendations Pt presented on admission with multiple Pressure injuries. Full thickness stage 4Sacral Pressure injury with undermined borders(L)12.5cm x (W)13.5cm, Undermining clockwise 2-5 by 2.5cm @3o'clock, Undermining Clockwise 10-12 by 2.6cm@10o'clock. Scattered slough ,10% necrotic at base. Bone is palpable. Undermined borders clockwise 9-3o'clock is indurated and necrotic. Surrounding perimeter of wound is indurated, purpuric and red tinged. At apex of wound along borders is an area of necrosis from 11-3o'clock.Wound is malodorous. Small amt taylor coloured exudate noted. At R Sacrum, in close proximity to above Sacral wound is a DTPI(L)6cm x (W)3cm. Base of pressure injury is purpuric with linear area of blood filled blister. Marginal erythema along borders.Marginal erythema along borders. At R Iliac is and area of hyperpigmentation with DTPI evolving along L aspect of borders of hyperpigmented area(L)2cm x ((W)2.2cm. DTPI L Ischium(L)6cm x (W)6.5cm. Base of wound is indurated, purpuric with surrounding non-blanching erythema. Scattered area of hypopigmentation noted to most medial aspect of L Ischium and perineum. Unstageable Pressure injury R Heel. Stable dry eschar noted. (L)2cm x (W)3.4cm. Periwound R Heel is blanchable but boggy. DTPI Medial L Heel(L)3cm x (W)4cm. Base of wound is maroon and indurated. Unstageable Pressure injury L lateral Malleolus(L)3cm x (W)3cm. 100% Dry brown/ black eschar noted at base of wound. DTPI R Lateral Malleolus(L)0.5cm x (W)2cm. Base of wound is indurated purpuric with marginal erythema along borders. Tx.Plan: Cleanse Sacral wound with Dakin's 0.125% Adwoa. Loosely pack sacral wound with Dakin's moistened KERLIX. Apply Moisture Barrier Paste along borders. Cover with Optifoam drsg DAILY and PRN Apply Cavilon Skin Barrier to R Iliac. R sacrum,L Ischium. Cover each site with Optifoam drsgs. Change every 3 days and prn. Apply Betadine to Malleoli and both heels. Cover each site with Optifoam Drsgs. Change every 3days and prn. Reposition at least every 2hours or as tolerated. Place pillow between knees. Off-load heels with pillows. Air fluidized Mattress. (2) Severe malnutrition Assessment & Plan: DAILY ESTIMATED NEEDS: Needs based on Renal, HD, wound, 45.5kg 30-40 kcals/kg 1919-7142 total kcals 1.25-2 g protein/kg 57-91 g total protein Fluid per MD, on HD NUTRITION DIAGNOSIS: Increased kcal/prot intake needs R/T renal dysfunction, underweight status, wound healing as evidenced by ESRD dx, on HD, pt is 73% of [place] Body Weight w/ recent sacral stage 4 wound, s/p surgical debridement, pt os now s/p PEG placement. CURRENT DIET:NPO PO DIET RECOMMENDATIONS: liberalized regular diet/ texture as tolerated or per ESTIMATOR JEWELRY for oral grat ENTERAL NUTRITION RECOMMENDATIONS: Nepro w/ goal of 40ml/hr x24 hrs to provide 960ml, 1728 kcal, 78g pro, 698ml free H2O - As medically able w/ GI access, start Nepro @20ml/hr for 6 hrs, advance 5ml/hr q4 hrs to goal. - Flush per MD, on HD - HOB over 30 degrees ADDITIONAL RECOMMENDATIONS: * TF recs as above * ESTIMATOR JEWELRY if appropriate for oral grat * Wound healing: SIS BID + Nephrovite qdaily Vit C 250 mg BID (or per nephro), ZnSO4 220mg qd (or per Nephro) * Maintain calibrated bed scale wts; 45.5kg on calibrated bed (12/16) (3) Dementia (4) Leukocytosis (5) Weakness (6) ESRD (end stage renal disease) (7) Hypertensive nephrosclerosis (8) Anemia in chronic kidney disease (9) CVA, old, cognitive deficits (10) Deep tissue injury (11) acute toxic encephalopathy Jesse Quinn Dec 18, 2019 10:55
--- NOTE | 2019-12-18 11:20 | NUR ---
nurse notes scheduled for Dialysis today industrial maintenance instructor (Clive Zeng ) aware Per Dr Myke gary to continue HD MICHAEL HO
--- NOTE | 2019-12-18 13:00 | Nephrology Progress Note ---
Assessment/Plan Problem List: (1) ESRD (end stage renal disease) (2) Hypertensive nephrosclerosis (3) CVA, old, cognitive deficits (4) Severe malnutrition (5) Sacral decubitus ulcer, stage IV Plan HD TTS PEG decubitus care, bp low , hydrate Subjective ROS Limited/Unobtainable: Yes Objective Objective Last 24 Hour Vital Signs Date Time Temp Pulse Resp B/P (MAP) Pulse Ox O2 Delivery O2 Flow Rate FiO2 12/18/19 11:50 96.6 81 18 93/40 (57) 98 12/18/19 08:45 83 97/45 12/18/19 08:30 Room Air 12/18/19 08:00 96.7 83 18 97/45 (62) 94 12/18/19 04:00 96.3 82 20 99/69 (79) 98 12/18/19 00:00 97.0 77 18 99/74 (82) 94 12/17/19 22:02 Room Air 12/17/19 21:33 74 129/78 12/17/19 21:32 74 129/78 12/17/19 20:00 97.7 96 20 114/70 (85) 98 12/17/19 16:00 97.7 93 18 108/48 (68) 100 Intake and Output 12/17/19 12/18/19 19:00 07:00 Intake Total 570 ml 480 ml Output Total 1000 ml Balance 570 ml -520 ml Intake Oral 100 ml IV Total 570 ml 80 ml Other 300 ml Output Hemodialysis UF 1000 ml # Voids 1 # Bowel Movements 1 Height (Feet): 5 Height (Inches): 5.00 Weight (Pounds): 112 General Appearance: lethargic, confused EENT: normal ENT inspection Cardiovascular: regular rhythm Respiratory/Chest: lungs clear Abdomen: non tender Extremities: no edema Neurologic: abnormal rug dyer II-XII, motor weakness Dylon Stringer MD Dec 18, 2019 13:00
--- NOTE | 2019-12-18 13:40 | NUR ---
nurse notes called and spoke to clinical hopper filler regarding glytrol substitute, and stated nephro ,started g-tube feeding at 30 ml/h at this time, pauline conrad
--- NOTE | 2019-12-18 14:39 | General Progress Note ---
Assessment/Plan Problem List: (1) Dementia ICD Codes: F03.90 - Unspecified dementia without behavioral disturbance SNOMED: 00354274 (2) Weakness ICD Codes: R53.1 - Weakness SNOMED: 64412102 (3) ESRD (end stage renal disease) ICD Codes: N18.6 - End stage renal disease SNOMED: 34948754 (4) Hypertensive nephrosclerosis ICD Codes: I12.9 - Hypertensive chronic kidney disease with stage 1 through stage 4 chronic kidney disease, or unspecified chronic kidney disease SNOMED: 754414442 (5) CVA, old, cognitive deficits ICD Codes: I69.319 - Unspecified symptoms and signs involving cognitive functions following cerebral infarction SNOMED: 46680552, 096846710, 220120056, 648833809 (6) Deep tissue injury ICD Codes: T14.8XXA - Other injury of unspecified body region, initial encounter SNOMED: 837133779 (7) acute toxic encephalopathy (8) Severe malnutrition ICD Codes: E43 - Unspecified severe protein-calorie malnutrition SNOMED: 60826977 (9) Sacral decubitus ulcer, stage IV ICD Codes: L89.154 - Pressure ulcer of sacral region, stage 4 SNOMED: 301960813, 189488242 Status: stable, progressing Assessment/Plan: Continue current treatment. GT feeds- titrate Hemodialysis per renal DVT and stress ulcer prophylaxis Wound care per surgery Frequent turning every 2 hours Psych treatment per psychiatry repeat labs monitor BP- running on the low side. Subjective ROS Limited/Unobtainable: No Constitutional: Reports: malaise, weakness HEENT: Reports: no symptoms Cardiovascular: Reports: no symptoms Respiratory: Reports: no symptoms Gastrointestinal/Abdominal: Reports: difficulty swallowing, poor appetite, poor fluid intake Genitourinary: Reports: no symptoms Neurologic/Psychiatric: Reports: depressed, pre-existing deficit Endocrine: Reports: no symptoms Hematologic/Lymphatic: Reports: anemia Allergies: Coded Allergies: No Known Allergies (Unverified , 02/27/19) All Systems: reviewed and negative except above Subjective s/p gt replacement. no events. tolerated well. alert. on feeds. BP on the low side. confused. on wound care. Objective Last 24 Hour Vital Signs Date Time Temp Pulse Resp B/P (MAP) Pulse Ox O2 Delivery O2 Flow Rate FiO2 12/18/19 11:50 96.6 81 18 93/40 (57) 98 12/18/19 08:45 83 97/45 12/18/19 08:30 Room Air 12/18/19 08:00 96.7 83 18 97/45 (62) 94 12/18/19 04:00 96.3 82 20 99/69 (79) 98 12/18/19 00:00 97.0 77 18 99/74 (82) 94 12/17/19 22:02 Room Air 12/17/19 21:33 74 129/78 12/17/19 21:32 74 129/78 12/17/19 20:00 97.7 96 20 114/70 (85) 98 12/17/19 16:00 97.7 93 18 108/48 (68) 100 Intake and Output 12/17/19 12/18/19 19:00 07:00 Intake Total 570 ml 480 ml Output Total 1000 ml Balance 570 ml -520 ml Intake Oral 100 ml IV Total 570 ml 80 ml Other 300 ml Output Hemodialysis UF 1000 ml # Voids 1 # Bowel Movements 1 Height (Feet): 5 Height (Inches): 5.00 Weight (Pounds): 95 Objective General Appearance: WD/WN, lethargic, confused EENT: PERRL/EOMI Neck: non-tender, normal alignment, supple Cardiovascular: normal peripheral pulses, normal rate, regular rhythm Respiratory/Chest: chest wall non-tender, lungs clear, normal breath sounds Abdomen: normal bowel sounds, non tender, soft, no organomegaly, no mass Edema: no edema noted Arm (L), no edema noted Arm (R) Neurologic: campus executive director II-XII grossly normal, alert, responsive, disoriented Skin: normal pigmentation Lymphatic: normal anterior cervical (L), normal anterior cervical (R) Freddy Quevedo MD Dec 18, 2019 14:39
--- NOTE | 2019-12-18 16:04 | NUR ---
*-*DISCHARGE PLANNING*-* PATIENT HAS BEEN REFERRED TO: [facility] P: [phone]
--- NOTE | 2019-12-18 19:05 | NUR ---
nurse notes HAND-OFF: Report given to Kim RODRIGUEZ accordingly HD started by HD nurse at 1855 pm will endorse pauline conrad.
--- NOTE | 2019-12-18 19:51 | NUR ---
NURSE NOTES: Received patient awake, bed ridden, ongoing hemodialysis.
--- NOTE | 2019-12-18 21:46 | General Progress Note ---
Assessment/Plan Status: stable, progressing Assessment/Plan: Assessment - Anemia - multifactorial, but mainly due to CRF - Anorexia, malnutrition - OBS - Decubitus ulcer - s/p PEG Recommendations - follow CBC - wound care - Begin TF - GT care Subjective Allergies: Coded Allergies: No Known Allergies (Unverified , 02/27/19) Subjective Above noted s/p PEG no events overnight TF orders given to RN Objective Last 24 Hour Vital Signs Date Time Temp Pulse Resp B/P (MAP) Pulse Ox O2 Delivery O2 Flow Rate FiO2 12/18/19 20:36 89 118/53 12/18/19 20:24 96.2 89 18 118/53 (74) 96 12/18/19 20:05 Room Air 12/18/19 16:36 97.9 86 17 116/65 (82) 98 12/18/19 16:00 97.9 82 17 86/41 (56) 98 12/18/19 11:50 96.6 81 18 93/40 (57) 98 12/18/19 08:45 83 97/45 12/18/19 08:30 Room Air 12/18/19 08:00 96.7 83 18 97/45 (62) 94 12/18/19 04:00 96.3 82 20 99/69 (79) 98 12/18/19 00:00 97.0 77 18 99/74 (82) 94 12/17/19 22:02 Room Air Intake and Output 12/17/19 12/18/19 19:00 07:00 Intake Total 670 ml 480 ml Output Total 1000 ml Balance 670 ml -520 ml Intake Oral 100 ml IV Total 570 ml 80 ml Tube Feeding 100 ml Other 300 ml Output Hemodialysis UF 1000 ml # Voids 1 # Bowel Movements 1 Height (Feet): 5 Height (Inches): 5.00 Weight (Pounds): 95 Objective Thin AA woman NCAT supple CTA RRR abd soft flat ND Ext no edema (+) decub ulcers OBS Willow Cee MD Dec 18, 2019 21:46
[2019-12-19] VITALS: BP 104/67
--- NOTE | 2019-12-19 01:59 | Cardiology Progress Note ---
Subjective DATE OF SERVICE: Dec 18, 2019 Remains withdrawn and lethargic BP range now on LOW side. Clonidine patch was discontinued last nite Now s/p uncomplicated PEG 12/17/19. No fevers/chills, N/V,D. No SOB. REVIEW OF SYSTEMS: unchanged from assessment of 12/15/19 However noted that atorvastatin dose was decreased to 10mg during last hospitalization, based on lipid panel. Objective Last 24 Hour Vital Signs Date Time Temp Pulse Resp B/P (MAP) Pulse Ox O2 Delivery O2 Flow Rate FiO2 12/19/19 00:00 96.8 95 20 104/67 (79) 95 12/18/19 20:36 89 118/53 12/18/19 20:24 96.2 89 18 118/53 (74) 96 12/18/19 20:05 Room Air 12/18/19 16:36 97.9 86 17 116/65 (82) 98 12/18/19 16:00 97.9 82 17 86/41 (56) 98 12/18/19 11:50 96.6 81 18 93/40 (57) 98 12/18/19 08:45 83 97/45 12/18/19 08:30 Room Air 12/18/19 08:00 96.7 83 18 97/45 (62) 94 12/18/19 04:00 96.3 82 20 99/69 (79) 98 HEENT: normal ENT inspection RHYTHM: ST LUNGS: lungs clear bilaterally CARDIAC: regular rhythm, normal S1 and S2, rapid rate ABDOMEN: non tender, soft, no organomegaly, distended, G-Tube intact EXTREMITIES: No edema, other - Palpable bruit over UE AV fistula Assessment/Plan Assessment/Plan Severe protein/calorie malnutrition Anemia of CKD ESRD Dysphagia - s/p Gtube. Hx CVA with dementia Metabolic encephalopathy Sinus tachycardia Hypertension/HHD - now with lower BP range. Chronic diastolic CHF Sacral wound - s/p debridement Hypotensive trend HD/UF Limit ultrafiltration DVT prophylaxis Off megace Off clonidine patch Lowered atorvastatin dosing Fluid challenge for symptomatic hypotension. Recheck CBC and lytes. Bulmaro Hester MD Dec 19, 2019 01:59
[2019-12-19 04:25] VITALS: BP 95/65
[2019-12-19 06:08] LABS: HEMATOCRIT 35.7 % (37.0-47.0); HEMOGLOBIN 10.9 G/DL (12.0-16.0); MEAN CORPUSCULAR VOLUME 93 FL (80-99); PLATELET COUNT 323 K/UL (150-450); RED BLOOD COUNT 3.82 M/UL (4.20-5.40); RED CELL DISTRIBUTION WIDTH 15.4 % (11.6-14.8)
[2019-12-19 06:50] LABS: ALANINE AMINOTRANSFERASE 23 U/L (12-78); ALBUMIN/GLOBULIN RATIO 0.4 (1.0-2.7); ALKALINE PHOSPHATASE 126 U/L (46-116); ASPARTATE AMINO TRANSFERASE 35 U/L (15-37); BILIRUBIN,TOTAL 0.4 MG/DL (0.2-1.0); BLOOD UREA NITROGEN 22 mg/dL (7-18); CALCIUM 9.5 MG/DL (8.5-10.1); CARBON DIOXIDE 34 MMOL/L (21-32); CREATININE 3.2 MG/DL (0.55-1.30)
--- NOTE | 2019-12-19 07:13 | NUR ---
HAND-OFF: Report given to Jenelle Jackson RN.
--- NOTE | 2019-12-19 07:21 | NUR ---
NURSE NOTES: Patient, awake, non-verbal; on room air, no sing of shortness of breath, no sing of distress; no sing of chest pain; IV Right-Wrist D5W 75cc running; Tube feeding Nephro running 50cc, will increase the rate if residual <150cc by 0800; head of the bed elevated for aspiration percussion; no residual at this time; side rails up x 2, breaks engaged, bed alarm on, bed at lowest position; call light within reach; wound dressing dry and intact; will keep monitoring.
[2019-12-19 07:22] LABS: CHLORIDE 91 MMOL/L (98-107); POTASSIUM 3.6 MMOL/L (3.5-5.1); SODIUM 133 MMOL/L (136-145)
[2019-12-19 08:00] VITALS: BP 97/59
--- NOTE | 2019-12-19 08:29 | General Progress Note ---
Assessment/Plan Problem List: (1) Dementia ICD Codes: F03.90 - Unspecified dementia without behavioral disturbance SNOMED: 83257249 (2) Weakness ICD Codes: R53.1 - Weakness SNOMED: 80213415 (3) ESRD (end stage renal disease) ICD Codes: N18.6 - End stage renal disease SNOMED: 28800853 (4) Hypertensive nephrosclerosis ICD Codes: I12.9 - Hypertensive chronic kidney disease with stage 1 through stage 4 chronic kidney disease, or unspecified chronic kidney disease SNOMED: 335204025 (5) CVA, old, cognitive deficits ICD Codes: I69.319 - Unspecified symptoms and signs involving cognitive functions following cerebral infarction SNOMED: 05321981, 933420578, 124055172, 677507812 (6) Deep tissue injury ICD Codes: T14.8XXA - Other injury of unspecified body region, initial encounter SNOMED: 830198046 (7) acute toxic encephalopathy (8) Severe malnutrition ICD Codes: E43 - Unspecified severe protein-calorie malnutrition SNOMED: 10153474 (9) Sacral decubitus ulcer, stage IV ICD Codes: L89.154 - Pressure ulcer of sacral region, stage 4 SNOMED: 774622368, 997160958 Status: stable, progressing Assessment/Plan: Continue current treatment. GT feeds- titrate Hemodialysis per renal DVT and stress ulcer prophylaxis Wound care per surgery Frequent turning every 2 hours Psych treatment per psychiatry repeat labs monitor BP- running on the low side. may need to dc additional BP meds check cxr check blood cultures and UA/CS ID called. ?CT to r/o sacral osteo Subjective ROS Limited/Unobtainable: Yes Constitutional: Reports: malaise, weakness HEENT: Reports: no symptoms Cardiovascular: Reports: no symptoms Gastrointestinal/Abdominal: Reports: difficulty swallowing Genitourinary: Reports: no symptoms Neurologic/Psychiatric: Reports: anxiety, depressed, pre-existing deficit Endocrine: Reports: no symptoms Hematologic/Lymphatic: Reports: anemia Allergies: Coded Allergies: No Known Allergies (Unverified , 02/27/19) All Systems: reviewed and negative except above Subjective tolerating gt feeds, weak and lethargic. low bp noted. clonidine patch removed. worsening leukocytosis. no fevers. no reports or cough or diarrhea. Objective Last 24 Hour Vital Signs Date Time Temp Pulse Resp B/P (MAP) Pulse Ox O2 Delivery O2 Flow Rate FiO2 12/19/19 04:25 97.2 77 20 95/65 (75) 94 12/19/19 00:00 96.8 95 20 104/67 (79) 95 12/18/19 20:36 89 118/53 12/18/19 20:24 96.2 89 18 118/53 (74) 96 12/18/19 20:05 Room Air 12/18/19 16:36 97.9 86 17 116/65 (82) 98 12/18/19 16:00 97.9 82 17 86/41 (56) 98 12/18/19 11:50 96.6 81 18 93/40 (57) 98 12/18/19 08:45 83 97/45 12/18/19 08:30 Room Air Intake and Output 12/18/19 12/19/19 19:00 07:00 Intake Total 1184 ml 1400 ml Output Total 500 ml Balance 1184 ml 900 ml Free Water 100 ml 60 ml IV Total 564 ml 870 ml Tube Feeding 220 ml 470 ml Other 300 ml Output Hemodialysis UF 500 ml # Voids 1 # Bowel Movements 1 Laboratory Tests 12/19/19 05:02: White Blood Count 15.0H, Red Blood Count 3.82L, Hemoglobin 10.9L, Hematocrit 35.7L, Mean Corpuscular Volume 93, Mean Corpuscular Hemoglobin 28.5, Mean Corpuscular Hemoglobin Concent 30.5L, Red Cell Distribution Width 15.4H, Platelet Count 323, Mean Platelet Volume 5.9L, Neutrophils (%) (Auto) , Lymphocytes (%) (Auto) , Monocytes (%) (Auto) , Eosinophils (%) (Auto) , Basophils (%) (Auto) , Neutrophils % (Manual) [Pending], Lymphocytes % (Manual) [Pending], Platelet Estimate [Pending], Platelet Morphology [Pending], Sodium Level 133L, Potassium Level 3.6, Chloride Level 91L, Carbon Dioxide Level 34H, Blood Urea Nitrogen 22H, Creatinine 3.2H, Estimat Glomerular Filtration Rate 17.2, Glucose Level 312H, Calcium Level 9.5, Total Bilirubin 0.4, Aspartate Amino Transf (AST/SGOT) 35, Alanine Aminotransferase (ALT/SGPT) 23, Alkaline Phosphatase 126H, Total Protein 7.7, Albumin 2.0L, Globulin 5.7, Albumin/ Globulin Ratio 0.4L Height (Feet): 5 Height (Inches): 5.00 Weight (Pounds): 97 Objective General Appearance: WD/WN, lethargic, confused EENT: PERRL/EOMI Neck: non-tender, normal alignment, supple Cardiovascular: normal peripheral pulses, normal rate, regular rhythm Respiratory/Chest: chest wall non-tender, lungs clear, normal breath sounds Abdomen: normal bowel sounds, non tender, soft, no organomegaly, no mass Edema: no edema noted Arm (L), no edema noted Arm (R) 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
[2019-12-19] MEDS: Ascorbic Acid 500mg tab ORAL SCH (08:49)
[2019-12-19] MEDS: Zinc Sulfate 220mg ORAL SCH (08:49)
[2019-12-19] MEDS: Metoprolol Tartrate 50mg tab ORAL SCH ×2 (08:50→20:17)
[2019-12-19] MEDS: Nephrovite tab (Rena-Vite) ORAL SCH (08:50)
[2019-12-19] MEDS: Aspirin Baby 81mg ORAL SCH (08:50)
[2019-12-19] MEDS: Heparin 5000 units/ml inj SUBQ SCH ×2 (08:51→20:20)
[2019-12-19] MEDS ORDERED: Omnipaque-300 100ml vial INJ ONE (11:00)
--- NOTE | 2019-12-19 11:02 | NUR ---
RADIOLOGY DEPT., CHEST X-RAY DONE.-P.DYE
[2019-12-19] MEDS ORDERED: Omnipaque-300 100ml vial INJ SCH (11:15)
--- NOTE | 2019-12-19 11:33 | NUR ---
NURSE NOTES: There is an order for CT Pelvis W Contrast; tried to call patient's next of kin Meet Moise at [phone]; the phone number doesn't accept voice message and the person isn't answering the phone; will keep trying;
--- NOTE | 2019-12-19 11:40 | Diagnostic Imaging Report ---
Indication: Shortness of breath Technique: One view of the chest Comparison: 11/24/2019 Findings: Lungs and pleural spaces are clear. Heart size is normal. Patient's chin obscures the upper mediastinum Impression: No acute process
--- NOTE | 2019-12-19 11:57 | NUR ---
NURSE NOTES: Patient's next of kin, Anh Moisehan gave a telephone consent for CT Perlvis W contrast; Consent verified by primary nurse and MICHAEL Daniel;
[2019-12-19 12:00] VITALS: BP 99/64
--- NOTE | 2019-12-19 12:17 | General Progress Note ---
Assessment/Plan Status: stable, progressing Assessment/Plan: Assessment - Anemia - multifactorial, but mainly due to CRF - Anorexia, malnutrition - OBS - Decubitus ulcer - azotemia - leukocytosis - s/p PEG Recommendations - follow CBC - wound care - Continue TF - GT care - elevate HOB Subjective Allergies: Coded Allergies: No Known Allergies (Unverified , 02/27/19) Subjective Above noted s/p PEG no events overnight rising WBC noted Objective Last 24 Hour Vital Signs Date Time Temp Pulse Resp B/P (MAP) Pulse Ox O2 Delivery O2 Flow Rate FiO2 12/19/19 09:00 Room Air 12/19/19 08:00 97.1 107 20 97/59 (72) 100 12/19/19 04:25 97.2 77 20 95/65 (75) 94 12/19/19 00:00 96.8 95 20 104/67 (79) 95 12/18/19 20:36 89 118/53 12/18/19 20:24 96.2 89 18 118/53 (74) 96 12/18/19 20:05 Room Air 12/18/19 16:36 97.9 86 17 116/65 (82) 98 12/18/19 16:00 97.9 82 17 86/41 (56) 98 Intake and Output 12/18/19 12/19/19 19:00 07:00 Intake Total 1184 ml 1450 ml Output Total 500 ml Balance 1184 ml 950 ml Free Water 100 ml 60 ml IV Total 564 ml 870 ml Tube Feeding 220 ml 520 ml Other 300 ml Output Hemodialysis UF 500 ml # Voids 1 # Bowel Movements 1 Laboratory Tests 12/19/19 05:02: White Blood Count 15.0H, Red Blood Count 3.82L, Hemoglobin 10.9L, Hematocrit 35.7L, Mean Corpuscular Volume 93, Mean Corpuscular Hemoglobin 28.5, Mean Corpuscular Hemoglobin Concent 30.5L, Red Cell Distribution Width 15.4H, Platelet Count 323, Mean Platelet Volume 5.9L, Neutrophils (%) (Auto) , Lymphocytes (%) (Auto) , Monocytes (%) (Auto) , Eosinophils (%) (Auto) , Basophils (%) (Auto) , Differential Total Cells Counted 100, Neutrophils % ( Manual) 89H, Lymphocytes % (Manual) 10L, Monocytes % (Manual) 1, Eosinophils % ( Manual) 0, Basophils % (Manual) 0, Band Neutrophils 0, Platelet Estimate Adequate, Platelet Morphology Normal, Hypochromasia 1+, Anisocytosis 1+, Sodium Level 133L, Potassium Level 3.6, Chloride Level 91L, Carbon Dioxide Level 34H, Blood Urea Nitrogen 22H, Creatinine 3.2H, Estimat Glomerular Filtration Rate 17.2, Glucose Level 312H, Calcium Level 9.5, Total Bilirubin 0.4, Aspartate Amino Transf (AST/SGOT) 35, Alanine Aminotransferase (ALT/SGPT) 23, Alkaline Phosphatase 126H, Total Protein 7.7, Albumin 2.0L, Globulin 5.7, Albumin/ Globulin Ratio 0.4L Height (Feet): 5 Height (Inches): 5.00 Weight (Pounds): 97 Objective Thin AA woman NCAT supple CTA RRR abd soft flat ND Ext no edema (+) decub ulcers OBS Willow Cee MD Dec 19, 2019 12:17
[2019-12-19] MEDS: Piperacillin/Tazobactam 2.25 GM in D5W 55 ML IVPB SCH ×2 (12:42→21:16)
--- NOTE | 2019-12-19 13:04 | NUR ---
NURSE NOTES: Patient left the floor for CT together with transporter;
--- NOTE | 2019-12-19 13:54 | Surgery Progress Note ---
Surgery Progress Note Subjective Additional Comments doing well with peg tolerating tube feeds no n/v//f/c Objective Last 24 Hour Vital Signs Date Time Temp Pulse Resp B/P (MAP) Pulse Ox O2 Delivery O2 Flow Rate FiO2 12/19/19 12:00 97.1 99 19 99/64 (76) 99 12/19/19 09:00 Room Air 12/19/19 08:00 97.1 107 20 97/59 (72) 100 12/19/19 04:25 97.2 77 20 95/65 (75) 94 12/19/19 00:00 96.8 95 20 104/67 (79) 95 12/18/19 20:36 89 118/53 12/18/19 20:24 96.2 89 18 118/53 (74) 96 12/18/19 20:05 Room Air 12/18/19 16:36 97.9 86 17 116/65 (82) 98 12/18/19 16:00 97.9 82 17 86/41 (56) 98 I&O Intake and Output 12/18/19 12/19/19 19:00 07:00 Intake Total 1184 ml 1450 ml Output Total 500 ml Balance 1184 ml 950 ml Free Water 100 ml 60 ml IV Total 564 ml 870 ml Tube Feeding 220 ml 520 ml Other 300 ml Output Hemodialysis UF 500 ml # Voids 1 # Bowel Movements 1 Dressing: saturated Wound: other Cardiovascular: RSR Respiratory: decreased breath sounds Abdomen: soft, non-tender, present bowel sounds Extremities: no tenderness, no cyanosis, other Laboratory Tests Test 12/19/19 05:02 White Blood Count 15.0 K/UL (4.8-10.8) H Red Blood Count 3.82 M/UL (4.20-5.40) L Hemoglobin 10.9 G/DL (12.0-16.0) L Hematocrit 35.7 % (37.0-47.0) L Mean Corpuscular Volume 93 FL (80-99) Mean Corpuscular Hemoglobin 28.5 PG (27.0-31.0) Mean Corpuscular Hemoglobin Concent 30.5 G/DL (32.0-36.0) L Red Cell Distribution Width 15.4 % (11.6-14.8) H Platelet Count 323 K/UL (150-450) Mean Platelet Volume 5.9 FL (6.5-10.1) L Neutrophils (%) (Auto) % (45.0-75.0) Lymphocytes (%) (Auto) % (20.0-45.0) Monocytes (%) (Auto) % (1.0-10.0) Eosinophils (%) (Auto) % (0.0-3.0) Basophils (%) (Auto) % (0.0-2.0) Differential Total Cells Counted 100 Neutrophils % (Manual) 89 % (45-75) H Lymphocytes % (Manual) 10 % (20-45) L Monocytes % (Manual) 1 % (1-10) Eosinophils % (Manual) 0 % (0-3) Basophils % (Manual) 0 % (0-2) Band Neutrophils 0 % (0-8) Platelet Estimate Adequate Platelet Morphology Normal Hypochromasia 1+ Anisocytosis 1+ Sodium Level 133 MMOL/L (136-145) L Potassium Level 3.6 MMOL/L (3.5-5.1) Chloride Level 91 MMOL/L (98-107) L Carbon Dioxide Level 34 MMOL/L (21-32) H Blood Urea Nitrogen 22 mg/dL (7-18) H Creatinine 3.2 MG/DL (0.55-1.30) H Estimat Glomerular Filtration Rate 17.2 mL/min (>60) Glucose Level 312 MG/DL (74-106) H Calcium Level 9.5 MG/DL (8.5-10.1) Total Bilirubin 0.4 MG/DL (0.2-1.0) Aspartate Amino Transf (AST/SGOT) 35 U/L (15-37) Alanine Aminotransferase (ALT/SGPT) 23 U/L (12-78) Alkaline Phosphatase 126 U/L (46-116) H Total Protein 7.7 G/DL (6.4-8.2) Albumin 2.0 G/DL (3.4-5.0) L Globulin 5.7 g/dL Albumin/Globulin Ratio 0.4 (1.0-2.7) L Plan Problems: (1) Sacral decubitus ulcer, stage IV Assessment & Plan: 74-year-old female with large DTI prior necrotic tissue significant requiring debridement status post excisional debridement identifying nonviable tissue down to coccyx and sacrum. Patient is been doing well and recovering the nursing facility with good local care. She now presents still has a large open wound which was goal to have complete granulation potential closure and coverage at some point. Unfortunately given her nutritional status and decreased oral intake she is deteriorated somewhat does have some necrotic edges and slough noted in the wound bed. There is some granulation tissue approximately 6070% with some backbleeding as well. Currently no nausea vomiting fever chills. Labs noted. Albumin low. BMI low. Poor nutritional status. At this time would recommend PEG tube placement and initiation of tube feeds along with oral intake for gratification. Patient needs nutritional optimization for her wounds and her overall care plan. We will follow with recommendations Pt presented on admission with multiple Pressure injuries. Full thickness stage 4Sacral Pressure injury with undermined borders(L)12.5cm x (W)13.5cm, Undermining clockwise 2-5 by 2.5cm @3o'clock, Undermining Clockwise 10-12 by 2.6cm@10o'clock. Scattered slough ,10% necrotic at base. Bone is palpable. Undermined borders clockwise 9-3o'clock is indurated and necrotic. Surrounding perimeter of wound is indurated, purpuric and red tinged. At apex of wound along borders is an area of necrosis from 11-3o'clock.Wound is malodorous. Small amt taylor coloured exudate noted. At R Sacrum, in close proximity to above Sacral wound is a DTPI(L)6cm x (W)3cm. Base of pressure injury is purpuric with linear area of blood filled blister. Marginal erythema along borders.Marginal erythema along borders. At R Iliac is and area of hyperpigmentation with DTPI evolving along L aspect of borders of hyperpigmented area(L)2cm x ((W)2.2cm. DTPI L Ischium(L)6cm x (W)6.5cm. Base of wound is indurated, purpuric with surrounding non-blanching erythema. Scattered area of hypopigmentation noted to most medial aspect of L Ischium and perineum. Unstageable Pressure injury R Heel. Stable dry eschar noted. (L)2cm x (W)3.4cm. Periwound R Heel is blanchable but boggy. DTPI Medial L Heel(L)3cm x (W)4cm. Base of wound is maroon and indurated. Unstageable Pressure injury L lateral Malleolus(L)3cm x (W)3cm. 100% Dry brown/ black eschar noted at base of wound. DTPI R Lateral Malleolus(L)0.5cm x (W)2cm. Base of wound is indurated purpuric with marginal erythema along borders. Tx.Plan: Cleanse Sacral wound with Dakin's 0.125% Adwoa. Loosely pack sacral wound with Dakin's moistened KERLIX. Apply Moisture Barrier Paste along borders. Cover with Optifoam drsg DAILY and PRN Apply Cavilon Skin Barrier to R Iliac. R sacrum,L Ischium. Cover each site with Optifoam drsgs. Change every 3 days and prn. Apply Betadine to Malleoli and both heels. Cover each site with Optifoam Drsgs. Change every 3days and prn. Reposition at least every 2hours or as tolerated. Place pillow between knees. Off-load heels with pillows. Air fluidized Mattress. (2) Severe malnutrition Assessment & Plan: s/p peg tf as tolerated DAILY ESTIMATED NEEDS: Needs based on Renal, HD, wound, 45.5kg 30-40 kcals/kg 6559-8206 total kcals 1.25-2 g protein/kg 57-91 g total protein Fluid per MD, on HD NUTRITION DIAGNOSIS: Increased kcal/prot intake needs R/T renal dysfunction, underweight status, wound healing as evidenced by ESRD dx, on HD, pt is 73% of Jolon Body Weight w/ recent sacral stage 4 wound, s/p surgical debridement, pt os now s/p PEG placement. CURRENT DIET:NPO PO DIET RECOMMENDATIONS: liberalized regular diet/ texture as tolerated or per PROGRAM LEAD for oral grat ENTERAL NUTRITION RECOMMENDATIONS: Nepro w/ goal of 40ml/hr x24 hrs to provide 960ml, 1728 kcal, 78g pro, 698ml free H2O - As medically able w/ GI access, start Nepro @20ml/hr for 6 hrs, advance 5ml/hr q4 hrs to goal. - Flush per MD, on HD - HOB over 30 degrees ADDITIONAL RECOMMENDATIONS: * TF recs as above * PROGRAM LEAD if appropriate for oral grat * Wound healing: SIS BID + Nephrovite qdaily Vit C 250 mg BID (or per nephro), ZnSO4 220mg qd (or per Nephro) * Maintain calibrated bed scale wts; 45.5kg on calibrated bed (12/16) (3) Dementia (4) Leukocytosis (5) Weakness (6) ESRD (end stage renal disease) (7) Hypertensive nephrosclerosis (8) Anemia in chronic kidney disease (9) CVA, old, cognitive deficits (10) Deep tissue injury (11) acute toxic encephalopathy Jeses Quinn Dec 19, 2019 13:54
--- NOTE | 2019-12-19 14:05 | NUR ---
CASE MANAGEMENT:REVIEW SI;TOXIC ENCEPHALOPATHY. STAGE IV SACRAL DECUB. S/P PEG PLACEMENT DAY #2 97.1 107 20 95/65 94% ON RA WBC 15.0 NA 133 CL 91 CO2 34 BUN 22 CR 3.2 BG 312 IS;ZOSYN IV Q8 IVF NS @ 75 ML/HR HEPARIN SUBQ Q12 LOUIE TOPIC MED SURG SURG DCP;FROM [facility] PLAN; CT TO RULE OUT SACRAL OSTEOMYELITIS TUBE FEEDING GOAL 60CC / HR
--- NOTE | 2019-12-19 14:13 | Nephrology Progress Note ---
Assessment/Plan Problem List: (1) ESRD (end stage renal disease) (2) Hypertensive nephrosclerosis (3) CVA, old, cognitive deficits (4) Severe malnutrition (5) Sacral decubitus ulcer, stage IV Plan HD TTS PEG decubitus care, bp low , hydrate Subjective ROS Limited/Unobtainable: Yes Objective Objective Last 24 Hour Vital Signs Date Time Temp Pulse Resp B/P (MAP) Pulse Ox O2 Delivery O2 Flow Rate FiO2 12/19/19 12:00 97.1 99 19 99/64 (76) 99 12/19/19 09:00 Room Air 12/19/19 08:00 97.1 107 20 97/59 (72) 100 12/19/19 04:25 97.2 77 20 95/65 (75) 94 12/19/19 00:00 96.8 95 20 104/67 (79) 95 12/18/19 20:36 89 118/53 12/18/19 20:24 96.2 89 18 118/53 (74) 96 12/18/19 20:05 Room Air 12/18/19 16:36 97.9 86 17 116/65 (82) 98 12/18/19 16:00 97.9 82 17 86/41 (56) 98 Intake and Output 12/18/19 12/19/19 19:00 07:00 Intake Total 1184 ml 1450 ml Output Total 500 ml Balance 1184 ml 950 ml Free Water 100 ml 60 ml IV Total 564 ml 870 ml Tube Feeding 220 ml 520 ml Other 300 ml Output Hemodialysis UF 500 ml # Voids 1 # Bowel Movements 1 Laboratory Tests 12/19/19 05:02: White Blood Count 15.0H, Red Blood Count 3.82L, Hemoglobin 10.9L, Hematocrit 35.7L, Mean Corpuscular Volume 93, Mean Corpuscular Hemoglobin 28.5, Mean Corpuscular Hemoglobin Concent 30.5L, Red Cell Distribution Width 15.4H, Platelet Count 323, Mean Platelet Volume 5.9L, Neutrophils (%) (Auto) , Lymphocytes (%) (Auto) , Monocytes (%) (Auto) , Eosinophils (%) (Auto) , Basophils (%) (Auto) , Differential Total Cells Counted 100, Neutrophils % ( Manual) 89H, Lymphocytes % (Manual) 10L, Monocytes % (Manual) 1, Eosinophils % ( Manual) 0, Basophils % (Manual) 0, Band Neutrophils 0, Platelet Estimate Adequate, Platelet Morphology Normal, Hypochromasia 1+, Anisocytosis 1+, Sodium Level 133L, Potassium Level 3.6, Chloride Level 91L, Carbon Dioxide Level 34H, Blood Urea Nitrogen 22H, Creatinine 3.2H, Estimat Glomerular Filtration Rate 17.2, Glucose Level 312H, Calcium Level 9.5, Total Bilirubin 0.4, Aspartate Amino Transf (AST/SGOT) 35, Alanine Aminotransferase (ALT/SGPT) 23, Alkaline Phosphatase 126H, Total Protein 7.7, Albumin 2.0L, Globulin 5.7, Albumin/ Globulin Ratio 0.4L Height (Feet): 5 Height (Inches): 5.00 Weight (Pounds): 97 General Appearance: lethargic, confused Cardiovascular: regular rhythm Respiratory/Chest: lungs clear Abdomen: non tender 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
--- NOTE | 2019-12-19 14:57 | NUR ---
NURSE NOTES: Patient scheduled Hemodialysis for 12/20/19; I called [facility] and spoke with Nelida regarding this schedule; waiting for Hemodialysis nurse to call;
[2019-12-19 16:00] VITALS: BP 141/57
--- NOTE | 2019-12-19 16:54 | Diagnostic Imaging Report ---
Indication: Sacral decubitus ulcer Technique: No oral contrast utilized.. IV administration nonionic contrast. Spiral acquisitions obtained through the pelvis. Multiplanar reconstructions generated. Total dose length product 126 mGycm. CTDIvol(s) 4 mGy. Dose reduction achieved using automated exposure control Comparison: none Findings: There is a large open ulcer in the retrococcygeal region. Gas bubbles spread laterally from this on both sides. There may be a small sliver of fluid bilaterally associated with gas bubbles. There is a large eroded area of the coccyx involving C1 and C2, and the ulcer extends into the medullary space of the bone at this level. There are severe degenerative changes of the left hip, with a large subchondral cyst arising from the cortical surface on the left. There are mild degenerative changes of the right hip. No acute fractures. There are degenerative changes of the lumbosacral junction. There is mild distention of the rectum with feces. There is mild wall thickening of the rectum. The uterus contains calcifications, likely old degenerated fibroids. The bladder is markedly distended. There is generalized edema of the subcutaneous and pelvic fat. Impression: Large retrococcygeal decubitus ulcer, with the ulcer eroding into and destroying a portion of the the subjacent coccyx at the C1 and C2 level. Gas bubbles in the subcutaneous fat adjacent to the ulcer and a small amount of fluid. This probably just represents penetration of the ulcer into the subcutaneous fat or could indicate recent intervention, but the possibility of infection with a gas-forming organism should also be considered. No drainable collection demonstrated Possible rectal fecal impaction and possible associated stercoral colitis. Somewhat enlarged uterus. Uterine fundal calcifications likely indicating old fibroids Distended bladder Degenerative changes of the left hip Findings discussed by phone with Dr. Wilson at the time of interpretation The CT scanner at [facility] is accredited by the [employer] and the scans are performed using protocols designed to limit radiation exposure to as low as reasonably achievable to attain images of sufficient resolution adequate for diagnostic evaluation.
[2019-12-19 17:28] LABS: APPEARANCE,URINE CLEAR; BILIRUBIN, URINE 1+ (NEGATIVE); COLOR,URINE BROWN; GLUCOSE, URINE (UA) NEGATIVE (NEGATIVE); KETONES,URINE 1+ (NEGATIVE); LEUKOCYTE ESTERASE ,URINE 2+ (NEGATIVE); NITRITE,URINE POSITIVE (NEGATIVE); PH,URINE 6.5 (4.5-8.0); PROTEIN,URINE 3+ (NEGATIVE); UROBILINOGEN,URINE NORMAL MG/DL (0.0-1.0)
--- NOTE | 2019-12-19 17:30 | NUR ---
NURSE NOTES: Urine collected and sent to lab; waiting for result;
--- NOTE | 2019-12-19 18:30 | Consultation ---
DATE OF CONSULTATION: 12/19/2019 INFECTIOUS DISEASES CONSULTATION CONSULTING PHYSICIAN: Ovidio Wilson MD. REFERRING PHYSICIAN: Freddy Quevedo MD. REASON FOR CONSULTATION: Possible sacral osteomyelitis. HISTORY OF PRESENTING ILLNESS: This is a 74-year-old lady with history of dementia, depression, renal failure on dialysis, hypertension, who came in because she had a large sacral wound. She underwent debridement and was discharged to [facility] facility where she had decreased by mouth intake. There was a concern for sacral osteomyelitis and an Infectious Diseases consultation has been obtained for antibiotics. PAST MEDICAL HISTORY: 1. History of renal failure on dialysis. 2. Dementia. 3. Depression. 4. Hypertension. 5. Sacral decubitus ulcers. SOCIAL HISTORY: She does not smoke, drink, or use drugs. FAMILY HISTORY: Unknown. REVIEW OF SYSTEMS: Unable to obtain currently. MEDICATIONS: She is on atorvastatin, Epogen, ascorbic acid, aspirin, Lexapro, subcutaneous heparin, vitamin B, C, folic acid, zinc sulfate, metoprolol, Tylenol, Aline, milk of magnesia, Zyprexa. ALLERGIES: No known drug allergies. PHYSICAL EXAMINATION: VITAL SIGNS: Temperature of 97.1, T-max of 97.9, pulse of 107, respiratory rate 20, blood pressure 97/59, O2 saturation of 100%. HEENT: Pupils equally reactive to light and accommodation. Mouth appears clean without thrush. NECK: Supple. No adenopathy. No JVD. CARDIOVASCULAR: Regular rate and rhythm. No murmurs. LUNGS: Clear to auscultation bilaterally. No crackles. No wheezes. ABDOMEN: Soft, nontender. No organomegaly. G-tube noted. BACK: Sacral decubitus ulcer noted, is clean. EXTREMITIES: No cyanosis, no clubbing, no edema. LABORATORY AND DIAGNOSTIC DATA: White count of 15, hemoglobin 10.9, hematocrit 35.7, MCV 93, platelet count 323,000 with neutrophils of 89%. Sodium 133, potassium 3.6, chloride 91, bicarb 34, BUN 22, creatinine 3.2, glucose 312, calcium 9.5. Total bilirubin 0.4. AST 35, ALT 23, alkaline phosphatase 126. Total protein 7.7. Albumin of 2. COVID-19 rapid test is negative. ASSESSMENT: 1. This is a 74-year-old lady with history of hypertension, renal failure on dialysis, dementia, depression, who comes in with a sacral wound, would be concerned regarding underlying osteomyelitis. She has been seen by Surgery. 2. Renal failure, on dialysis. 3. Hypertension. PLAN: 1. We will start the patient on Zosyn. 2. We will order a CT of the sacrum. 3. We will follow up the patient clinically. I would like to thank, Dr. Quevedo, for this consultation. Ovidio Wilson M.D. DR: TIARA JOB#: [id number] CC: Freddy Quevedo MD.
--- NOTE | 2019-12-19 19:12 | NUR ---
HAND-OFF: Report given to MICHAEL Escobedo. Tube feeding and IV fluid running; endorsed to the incoming nurse that pateitn risk for aspiration; resting comfortably;
--- NOTE | 2019-12-19 19:46 | NUR ---
NURSE NOTES: Report received from Gosia RODRIGUEZ. Patient is awake and alert x 1 and is non verbal. Patient is noted to be on room air, does not appear to be in respiratory distress at this time. Patient is noted to have 24 dennis IV access with fluids running per MD orders. Patient is noted to have PEG tube that was placed on December 17, 2019. Patient is currently receiving Nepro at 60 cc / hr. This is the goal rate for the patient. Was endorsed to [place] RODRIGUEZ that the patient has been tolerating the feedings well. Was endorsed to [place] RODRIGUEZ that Gosia RODRIGUEZ called [facility] and confirmed dialysis for tomorrow. Patient is noted to have AV shunt in left upper arm. Wound care was endorsed to [place] RODRIGUEZ. Will continue to follow wound care plan. Bed is locked, alarmed, and in lowest position. Will continue to follow plan of care.
[2019-12-19 20:00] VITALS: BP 106/60
[2019-12-19] MEDS: Epoetin Alfa-EPBX(ESRD on dialysis)3000 units/ml vial SUBQ SCH (20:16)
[2019-12-19] MEDS: Dakin's 0.125% Soln (Quarter Strength) 16oz TOPIC SCH (20:17)
[2019-12-20] VITALS (8 sets, daily range): BP systolic 97–128; BP diastolic 50–60
--- NOTE | 2019-12-20 02:19 | NUR ---
HAND-OFF: Report given to Kelvin RODRIGUEZ. Endorsed that patient is on a tube feeding and to monitor tolerance. Endorsed wound care. Patient currently in stable condition.
--- NOTE | 2019-12-20 02:19 | Cardiology Progress Note ---
Subjective DATE OF SERVICE: Dec 19, 2019 Remains withdrawn and lethargic BP range now on LOW side. Clonidine patch was discontinued on 12/16. Now s/p uncomplicated PEG 12/17/19. No fevers/chills, N/V,D. No SOB. REVIEW OF SYSTEMS: unchanged from assessment of 12/15/19 However noted that atorvastatin dose was decreased to 10mg during last hospitalization, based on lipid panel. Objective Last 24 Hour Vital Signs Date Time Temp Pulse Resp B/P (MAP) Pulse Ox O2 Delivery O2 Flow Rate FiO2 12/20/19 00:00 97.9 112 20 110/58 (75) 99 12/19/19 21:00 Room Air 12/19/19 20:17 112 106/60 12/19/19 20:00 97.3 112 22 106/60 (75) 100 12/19/19 16:00 98.4 100 19 141/57 (85) 100 12/19/19 12:00 97.1 99 19 99/64 (76) 99 12/19/19 09:00 Room Air 12/19/19 08:00 97.1 107 20 97/59 (72) 100 12/19/19 04:25 97.2 77 20 95/65 (75) 94 HEENT: normal ENT inspection RHYTHM: ST LUNGS: lungs clear bilaterally CARDIAC: regular rhythm, normal S1 and S2, rapid rate ABDOMEN: non tender, soft, no organomegaly, distended, G-Tube intact EXTREMITIES: No edema, other - Palpable bruit over UE AV fistula Laboratory Tests Test 12/19/19 05:02 12/19/19 17:20 White Blood Count 15.0 K/UL (4.8-10.8) H Red Blood Count 3.82 M/UL (4.20-5.40) L Hemoglobin 10.9 G/DL (12.0-16.0) L Hematocrit 35.7 % (37.0-47.0) L Mean Corpuscular Volume 93 FL (80-99) Mean Corpuscular Hemoglobin 28.5 PG (27.0-31.0) Mean Corpuscular Hemoglobin Concent 30.5 G/DL (32.0-36.0) L Red Cell Distribution Width 15.4 % (11.6-14.8) H Platelet Count 323 K/UL (150-450) Mean Platelet Volume 5.9 FL (6.5-10.1) L Neutrophils (%) (Auto) % (45.0-75.0) Lymphocytes (%) (Auto) % (20.0-45.0) Monocytes (%) (Auto) % (1.0-10.0) Eosinophils (%) (Auto) % (0.0-3.0) Basophils (%) (Auto) % (0.0-2.0) Differential Total Cells Counted 100 Neutrophils % (Manual) 89 % (45-75) H Lymphocytes % (Manual) 10 % (20-45) L Monocytes % (Manual) 1 % (1-10) Eosinophils % (Manual) 0 % (0-3) Basophils % (Manual) 0 % (0-2) Band Neutrophils 0 % (0-8) Platelet Estimate Adequate Platelet Morphology Normal Hypochromasia 1+ Anisocytosis 1+ Sodium Level 133 MMOL/L (136-145) L Potassium Level 3.6 MMOL/L (3.5-5.1) Chloride Level 91 MMOL/L (98-107) L Carbon Dioxide Level 34 MMOL/L (21-32) H Blood Urea Nitrogen 22 mg/dL (7-18) H Creatinine 3.2 MG/DL (0.55-1.30) H Estimat Glomerular Filtration Rate 17.2 mL/min (>60) Glucose Level 312 MG/DL (74-106) H Calcium Level 9.5 MG/DL (8.5-10.1) Total Bilirubin 0.4 MG/DL (0.2-1.0) Aspartate Amino Transf (AST/SGOT) 35 U/L (15-37) Alanine Aminotransferase (ALT/SGPT) 23 U/L (12-78) Alkaline Phosphatase 126 U/L (46-116) H Total Protein 7.7 G/DL (6.4-8.2) Albumin 2.0 G/DL (3.4-5.0) L Globulin 5.7 g/dL Albumin/Globulin Ratio 0.4 (1.0-2.7) L Urine Color Brown Urine Appearance Clear Urine pH 6.5 (4.5-8.0) Urine Specific [place] 1.005 (1.005-1.035) Urine Protein 3+ (NEGATIVE) H Urine Glucose (UA) Negative (NEGATIVE) Urine Ketones 1+ (NEGATIVE) H Urine Blood 1+ (NEGATIVE) H Urine Nitrite Positive (NEGATIVE) H Urine Bilirubin 1+ (NEGATIVE) H Urine Ictotest Negative (NEGATIVE) Urine Urobilinogen Normal MG/DL (0.0-1.0) Urine Leukocyte Esterase 2+ (NEGATIVE) H Urine RBC 5-10 /HPF (0 - 2) H Urine WBC 15-20 /HPF (0 - 2) H Urine Squamous Epithelial Cells Moderate /LPF (NONE/OCC) H Urine Bacteria Many /HPF (NONE) H Assessment/Plan Assessment/Plan Possible sepsis. Severe protein/calorie malnutrition Anemia of CKD ESRD Dysphagia - s/p Gtube. Hx CVA with dementia Metabolic encephalopathy Sinus tachycardia Hypertension/HHD - now with lower BP range. Chronic diastolic CHF Sacral wound - s/p debridement Hypotensive trend HD/UF Limit ultrafiltration DVT prophylaxis Off megace Off clonidine patch Lowered atorvastatin dosing Fluid challenge for symptomatic hypotension. Recheck CBC and lytes. Agree with ID evaluation prior to discharge. Bulmaro Hester MD Dec 20, 2019 02:19
[2019-12-20] MEDS: Piperacillin/Tazobactam 2.25 GM in D5W 55 ML IVPB SCH ×3 (05:00→20:59)
--- NOTE | 2019-12-20 06:02 | NUR ---
RD ASSESSMENT & RECOMMENDATIONS SEE CARE ACTIVITY FOR COMPLETE ASSESSMENT DAILY ESTIMATED NEEDS: Needs based on Renal, HD, wound, 45.5kg 30-40 kcals/kg 1456-7176 total kcals 1.25-2 g protein/kg 57-91 g total protein Fluid per MD, on HD mL/kg . total fluid mLs NUTRITION DIAGNOSIS: Increased kcal/prot intake needs R/T renal dysfunction, underweight status, wound healing as evidenced by ESRD dx, on HD, pt is 73% of [place] Body Weight w/ recent sacral stage 4 wound, s/p surgical debridement, pt os now s/p PEG placement. CURRENT TF:Nepro @ 60ml/hr x 24 hrs- excessive, 142% est kcal, 127% est prot needs PO DIET RECOMMENDATIONS: liberalized regular diet/ texture as tolerated or per COORDINATOR VOLUNTEER SERVICES for oral grat ENTERAL NUTRITION RECOMMENDATIONS: LOWER GOAL RATE -> Nepro @ 40ml/hr x24 hrs to provide 960ml, 1728 kcal, 78g pro, 698ml free H2O - LOWER goal rate to 40ml/hr x 24 hrs: meets 100% est kcal/prot needs - Flush per MD, on HD - HOB over 30 degrees ADDITIONAL RECOMMENDATIONS: * COORDINATOR VOLUNTEER SERVICES if appropriate for oral grat * Maintain calibrated bed scale wts; 45.5kg on calibrated bed (12/16) * Wound healing: continue Nephrovite qdaily Josué 1pkt BID (mix w/ 2oz water) via PEG Vit C 250 mg BID (or per nephro), ZnSO4 220mg qd (or per Nephro) * Add NISS- h/o DM, on continuous TF .
[2019-12-20] MEDS ORDERED: Heparin Sod 1000 units/ml 10ml IV SCH (07:00)
--- NOTE | 2019-12-20 07:27 | NUR ---
HAND-OFF: Report given to Edd RODRIGUEZ.
--- NOTE | 2019-12-20 08:20 | NUR ---
NURSE NOTES: Received report from MICHAEL Kim. Patient seen lying in bed asleep with HOB elevated, no s/sx of SOB/Distress or any pain. Patient with Gtube intact, inplace and patent. Feeding currently running Nephro @60 ml/hr, tolerated well. IV site located on RFA gauge 24. Asymptomatic, intact, inplace and patent. No s/sx of any redness, swelling or infiltration. Patient placed on lowest and locked position, call light placed within reach and will continue to monitor.
[2019-12-20] MEDS: Metoprolol Tartrate 50mg tab ORAL SCH ×2 (09:00→20:58)
--- NOTE | 2019-12-20 09:00 | NUR ---
NURSE NOTES: patient was seen by Dr. Quevedo. notified the dietitian recommended decreasing tube feeding rate to 40/hr. also, patient sugar was high 312 this morning. patient has a history of DM. received order to decrease feeding rate to 40/hr and MD will put an order for DM management. order noted and carried out.
[2019-12-20] MEDS: Aspirin Baby 81mg ORAL SCH (09:40)
[2019-12-20] MEDS: Ascorbic Acid 500mg tab ORAL SCH (09:40)
[2019-12-20] MEDS: Zinc Sulfate 220mg ORAL SCH (09:40)
[2019-12-20] MEDS: Nephrovite tab (Rena-Vite) ORAL SCH (09:40)
[2019-12-20] MEDS: Heparin 5000 units/ml inj SUBQ SCH ×2 (09:41→20:58)
--- NOTE | 2019-12-20 11:04 | Nephrology Progress Note ---
Assessment/Plan Problem List: (1) ESRD (end stage renal disease) (2) Hypertensive nephrosclerosis (3) CVA, old, cognitive deficits (4) Severe malnutrition (5) Sacral decubitus ulcer, stage IV Plan HD TTS PEG decubitus care, bp low-nl, dc iv Subjective ROS Limited/Unobtainable: Yes Objective Objective Last 24 Hour Vital Signs Date Time Temp Pulse Resp B/P (MAP) Pulse Ox O2 Delivery O2 Flow Rate FiO2 12/20/19 09:00 Room Air 12/20/19 09:00 108 104/60 12/20/19 08:00 97.5 108 20 104/60 (75) 100 12/20/19 04:00 98.2 115 20 103/55 (71) 100 12/20/19 00:00 97.9 112 20 110/58 (75) 99 12/19/19 21:00 Room Air 12/19/19 20:17 112 106/60 12/19/19 20:00 97.3 112 22 106/60 (75) 100 12/19/19 16:00 98.4 100 19 141/57 (85) 100 12/19/19 12:00 97.1 99 19 99/64 (76) 99 Intake and Output 12/19/19 12/20/19 19:00 07:00 Intake Total 1570 ml 1175 ml Balance 1570 ml 1175 ml Free Water 120 ml 60 ml IV Total 730 ml 635 ml Tube Feeding 720 ml 480 ml Laboratory Tests 12/19/19 17:20: Urine Color Brown, Urine Appearance Clear, Urine pH 6.5, Urine Specific [place] 1.005, Urine Protein 3+H, Urine Glucose (UA) Negative, Urine Ketones 1+H, Urine Blood 1+H, Urine Nitrite PositiveH, Urine Bilirubin 1+H, Urine Ictotest Negative , Urine Urobilinogen Normal, Urine Leukocyte Esterase 2+H, Urine RBC 5-10H, Urine WBC 15-20H, Urine Squamous Epithelial Cells ModerateH, Urine Bacteria ManyH Height (Feet): 5 Height (Inches): 5.00 Weight (Pounds): 95 General Appearance: lethargic, confused Cardiovascular: regular rhythm, systolic murmur Respiratory/Chest: lungs clear Abdomen: non tender Extremities: no edema Neurologic: abnormal vice principal II-XII, motor weakness Dylon Stringer MD Dec 20, 2019 11:04
--- NOTE | 2019-12-20 11:58 | Infectious Diseases Prog Note ---
Assessment/Plan Assessment/Plan A; Sacrococcyx osteomyelitis Sacral pressure ulcer ESRD Dementia Fecal impaction Gastrostomy status P: Continue Zosyn Wound care Subjective ROS Limited/Unobtainable: Yes Constitutional: Denies: fever Allergies: Coded Allergies: No Known Allergies (Unverified , 02/27/19) Objective Last 24 Hour Vital Signs Date Time Temp Pulse Resp B/P (MAP) Pulse Ox O2 Delivery O2 Flow Rate FiO2 12/20/19 09:00 Room Air 12/20/19 09:00 108 104/60 12/20/19 08:00 97.5 108 20 104/60 (75) 100 12/20/19 04:00 98.2 115 20 103/55 (71) 100 12/20/19 00:00 97.9 112 20 110/58 (75) 99 12/19/19 21:00 Room Air 12/19/19 20:17 112 106/60 12/19/19 20:00 97.3 112 22 106/60 (75) 100 12/19/19 16:00 98.4 100 19 141/57 (85) 100 12/19/19 12:00 97.1 99 19 99/64 (76) 99 Height (Feet): 5 Height (Inches): 5.00 Weight (Pounds): 95 General Appearance: cachetic HEENT: mucous membranes moist Respiratory/Chest: lungs clear Cardiovascular: tachycardia Abdomen: soft, non tender, other - GT feeding Extremities: no edema Skin: ulcers, other - worse in sacrum Neurologic/Psychiatric: aphasia Musculoskeletal: atrophy Microbiology Date/Time Source Procedure Growth Status 12/19/19 17:20 Urine,Clean Catch Urine Culture - Preliminary NO GROWTH Resulted Laboratory Tests Test 12/19/19 17:20 Urine Color Brown Urine Appearance Clear Urine pH 6.5 (4.5-8.0) Urine Specific [place] 1.005 (1.005-1.035) Urine Protein 3+ (NEGATIVE) H Urine Glucose (UA) Negative (NEGATIVE) Urine Ketones 1+ (NEGATIVE) H Urine Blood 1+ (NEGATIVE) H Urine Nitrite Positive (NEGATIVE) H Urine Bilirubin 1+ (NEGATIVE) H Urine Ictotest Negative (NEGATIVE) Urine Urobilinogen Normal MG/DL (0.0-1.0) Urine Leukocyte Esterase 2+ (NEGATIVE) H Urine RBC 5-10 /HPF (0 - 2) H Urine WBC 15-20 /HPF (0 - 2) H Urine Squamous Epithelial Cells Moderate /LPF (NONE/OCC) H Urine Bacteria Many /HPF (NONE) H Current Medications Medications (Trade) Dose Ordered Sig/Jeanne Route PRN Reason Start Time Stop Time Status Last Admin Dose Admin Acetaminophen (Tylenol) 650 mg Q4H PRN ORAL mild pain/T>100.5 12/13/19 20:00 01/12/20 19:59 Acetaminophen/ Hydrocodone Bitart ([place] 10/325) 1 tab Q4H PRN ORAL PAIN 4-10 12/13/19 20:00 12/20/19 19:59 Ascorbic Acid (Vitamin C) 500 mg DAILY ORAL 12/14/19 09:00 01/13/20 08:59 12/20/19 09:40 Aspirin (ASA) 81 mg DAILY ORAL 12/14/19 09:00 01/28/20 08:59 12/20/19 09:40 Atorvastatin Calcium (Lipitor) 10 mg BEDTIME ORAL 12/18/19 21:00 03/17/20 20:59 12/19/19 20:18 Epoetin Reuben (Epoetin Reuben(ESRD on dialysis)) 6,000 unit TUE-TUE-TUE SUBQ 12/14/19 21:00 03/13/20 20:59 12/19/19 20:16 Escitalopram Oxalate (Lexapro) 10 mg DAILY ORAL 12/14/19 09:00 01/13/20 08:59 12/20/19 09:40 Heparin Sodium (Porcine) (Heparin 5000 units/ml) 5,000 units EVERY 12 HOURS SUBQ 12/14/19 09:00 01/28/20 08:59 12/20/19 09:41 Heparin Sodium (Porcine) (Heparin Sod 1000 units/ml 10ml) 500 unit ONCE IV 12/20/19 07:00 12/20/19 23:59 Magnesium Hydroxide (Mom) 30 ml DAILYPRN PRN ORAL Constipation 12/13/19 20:00 01/12/20 19:59 Metoprolol Tartrate (Lopressor) 50 mg Q12HR ORAL 12/13/19 21:00 03/12/20 20:59 12/17/19 21:32 Olanzapine (ZyPREXA) 2.5 mg Q6H PRN ORAL Agitation 12/13/19 20:00 01/27/20 19:59 Piperacillin Sod/ Tazobactam Sod 2.25 gm/Dextrose 55 ml @ 110 mls/hr Q8HR IVPB 12/19/19 12:00 12/26/19 11:59 12/20/19 05:00 Sodium Hypochlorite (Dakin's Quarter Strength) 1 applic QHS TOPIC 12/18/19 21:00 01/17/20 20:59 12/19/19 20:17 Sodium Chloride 1,000 ml @ 500 mls/hr Q2H PRN IVLG sbp<90 during hd 12/20/19 14:13 01/19/20 14:12 Vitamin B Complex/ Vit C/Folic Acid (Nephrovite) 1 tab DAILY ORAL 12/14/19 09:00 01/13/20 08:59 12/20/19 09:40 Zinc Sulfate (Zinc Sulfate) 220 mg DAILY ORAL 12/14/19 09:00 03/13/20 08:59 12/20/19 09:40 Jarrett Levy MD Dec 20, 2019 11:58
--- NOTE | 2019-12-20 13:39 | Surgery Progress Note ---
Surgery Progress Note Subjective Additional Comments no acute events comfortable stable Objective Last 24 Hour Vital Signs Date Time Temp Pulse Resp B/P (MAP) Pulse Ox O2 Delivery O2 Flow Rate FiO2 12/20/19 12:00 98.0 105 19 97/56 (70) 99 12/20/19 09:00 Room Air 12/20/19 09:00 108 104/60 12/20/19 08:00 97.5 108 20 104/60 (75) 100 12/20/19 04:00 98.2 115 20 103/55 (71) 100 12/20/19 00:00 97.9 112 20 110/58 (75) 99 12/19/19 21:00 Room Air 12/19/19 20:17 112 106/60 12/19/19 20:00 97.3 112 22 106/60 (75) 100 12/19/19 16:00 98.4 100 19 141/57 (85) 100 I&O Intake and Output 12/19/19 12/20/19 19:00 07:00 Intake Total 1570 ml 1175 ml Balance 1570 ml 1175 ml Free Water 120 ml 60 ml IV Total 730 ml 635 ml Tube Feeding 720 ml 480 ml Dressing: saturated Wound: clean, other Cardiovascular: RSR Respiratory: decreased breath sounds Abdomen: soft, non-tender, present bowel sounds Extremities: no tenderness, no cyanosis Laboratory Tests Test 12/19/19 17:20 Urine Color Brown Urine Appearance Clear Urine pH 6.5 (4.5-8.0) Urine Specific [place] 1.005 (1.005-1.035) Urine Protein 3+ (NEGATIVE) H Urine Glucose (UA) Negative (NEGATIVE) Urine Ketones 1+ (NEGATIVE) H Urine Blood 1+ (NEGATIVE) H Urine Nitrite Positive (NEGATIVE) H Urine Bilirubin 1+ (NEGATIVE) H Urine Ictotest Negative (NEGATIVE) Urine Urobilinogen Normal MG/DL (0.0-1.0) Urine Leukocyte Esterase 2+ (NEGATIVE) H Urine RBC 5-10 /HPF (0 - 2) H Urine WBC 15-20 /HPF (0 - 2) H Urine Squamous Epithelial Cells Moderate /LPF (NONE/OCC) H Urine Bacteria Many /HPF (NONE) H Plan Problems: (1) Sacral decubitus ulcer, stage IV Assessment & Plan: 74-year-old female with large DTI prior necrotic tissue significant requiring debridement status post excisional debridement identifying nonviable tissue down to coccyx and sacrum. Patient is been doing well and recovering the nursing facility with good local care. She now presents still has a large open wound which was goal to have complete granulation potential closure and coverage at some point. Unfortunately given her nutritional status and decreased oral intake she is deteriorated somewhat does have some necrotic edges and slough noted in the wound bed. There is some granulation tissue approximately 6070% with some backbleeding as well. Currently no nausea vomiting fever chills. Labs noted. Albumin low. BMI low. Poor nutritional status. At this time would recommend PEG tube placement and initiation of tube feeds along with oral intake for gratification. Patient needs nutritional optimization for her wounds and her overall care plan. We will follow with recommendations Pt presented on admission with multiple Pressure injuries. Full thickness stage 4Sacral Pressure injury with undermined borders(L)12.5cm x (W)13.5cm, Undermining clockwise 2-5 by 2.5cm @3o'clock, Undermining Clockwise 10-12 by 2.6cm@10o'clock. Scattered slough ,10% necrotic at base. Bone is palpable. Undermined borders clockwise 9-3o'clock is indurated and necrotic. Surrounding perimeter of wound is indurated, purpuric and red tinged. At apex of wound along borders is an area of necrosis from 11-3o'clock.Wound is malodorous. Small amt taylor coloured exudate noted. At R Sacrum, in close proximity to above Sacral wound is a DTPI(L)6cm x (W)3cm. Base of pressure injury is purpuric with linear area of blood filled blister. Marginal erythema along borders.Marginal erythema along borders. At R Iliac is and area of hyperpigmentation with DTPI evolving along L aspect of borders of hyperpigmented area(L)2cm x ((W)2.2cm. DTPI L Ischium(L)6cm x (W)6.5cm. Base of wound is indurated, purpuric with surrounding non-blanching erythema. Scattered area of hypopigmentation noted to most medial aspect of L Ischium and perineum. Unstageable Pressure injury R Heel. Stable dry eschar noted. (L)2cm x (W)3.4cm. Periwound R Heel is blanchable but boggy. DTPI Medial L Heel(L)3cm x (W)4cm. Base of wound is maroon and indurated. Unstageable Pressure injury L lateral Malleolus(L)3cm x (W)3cm. 100% Dry brown/ black eschar noted at base of wound. DTPI R Lateral Malleolus(L)0.5cm x (W)2cm. Base of wound is indurated purpuric with marginal erythema along borders. Tx.Plan: Cleanse Sacral wound with Dakin's 0.125% Adwoa. Loosely pack sacral wound with Dakin's moistened KERLIX. Apply Moisture Barrier Paste along borders. Cover with Optifoam drsg DAILY and PRN Apply Cavilon Skin Barrier to R Iliac. R sacrum,L Ischium. Cover each site with Optifoam drsgs. Change every 3 days and prn. Apply Betadine to Malleoli and both heels. Cover each site with Optifoam Drsgs. Change every 3days and prn. Reposition at least every 2hours or as tolerated. Place pillow between knees. Off-load heels with pillows. Air fluidized Mattress. (2) Severe malnutrition Assessment & Plan: s/p peg tf as tolerated DAILY ESTIMATED NEEDS: Needs based on Renal, HD, wound, 45.5kg 30-40 kcals/kg 6708-1633 total kcals 1.25-2 g protein/kg 57-91 g total protein Fluid per MD, on HD NUTRITION DIAGNOSIS: Increased kcal/prot intake needs R/T renal dysfunction, underweight status, wound healing as evidenced by ESRD dx, on HD, pt is 73% of [place] Body Weight w/ recent sacral stage 4 wound, s/p surgical debridement, pt os now s/p PEG placement. CURRENT DIET:NPO PO DIET RECOMMENDATIONS: liberalized regular diet/ texture as tolerated or per REVENUE INTEGRITY ANALYST for oral grat ENTERAL NUTRITION RECOMMENDATIONS: Nepro w/ goal of 40ml/hr x24 hrs to provide 960ml, 1728 kcal, 78g pro, 698ml free H2O - As medically able w/ GI access, start Nepro @20ml/hr for 6 hrs, advance 5ml/hr q4 hrs to goal. - Flush per MD, on HD - HOB over 30 degrees ADDITIONAL RECOMMENDATIONS: * TF recs as above * REVENUE INTEGRITY ANALYST if appropriate for oral grat * Wound healing: SIS BID + Nephrovite qdaily Vit C 250 mg BID (or per nephro), ZnSO4 220mg qd (or per Nephro) * Maintain calibrated bed scale wts; 45.5kg on calibrated bed (12/16) (3) Dementia (4) Leukocytosis (5) Weakness (6) ESRD (end stage renal disease) (7) Hypertensive nephrosclerosis (8) Anemia in chronic kidney disease (9) CVA, old, cognitive deficits (10) Deep tissue injury (11) acute toxic encephalopathy Jesse Quinn Dec 20, 2019 13:39
--- NOTE | 2019-12-20 17:15 | General Progress Note ---
Assessment/Plan Problem List: (1) Dementia ICD Codes: F03.90 - Unspecified dementia without behavioral disturbance SNOMED: 71155116 (2) Weakness ICD Codes: R53.1 - Weakness SNOMED: 71657686 (3) ESRD (end stage renal disease) ICD Codes: N18.6 - End stage renal disease SNOMED: 69105347 (4) Hypertensive nephrosclerosis ICD Codes: I12.9 - Hypertensive chronic kidney disease with stage 1 through stage 4 chronic kidney disease, or unspecified chronic kidney disease SNOMED: 400200139 (5) CVA, old, cognitive deficits ICD Codes: I69.319 - Unspecified symptoms and signs involving cognitive functions following cerebral infarction SNOMED: 39998570, 030368365, 986259069, 285580751 (6) Deep tissue injury ICD Codes: T14.8XXA - Other injury of unspecified body region, initial encounter SNOMED: 756133323 (7) acute toxic encephalopathy (8) Severe malnutrition ICD Codes: E43 - Unspecified severe protein-calorie malnutrition SNOMED: 07773935 (9) Sacral decubitus ulcer, stage IV ICD Codes: L89.154 - Pressure ulcer of sacral region, stage 4 SNOMED: 690856624, 598218092 Status: stable, progressing Assessment/Plan: Continue current treatment. GT feeds- titrate Hemodialysis per renal DVT and stress ulcer prophylaxis Wound care per surgery Frequent turning every 2 hours Psych treatment per psychiatry monitor labs monitor BP- running on the low side. may need to dc additional BP meds ID and surgery follow up ?dc planning to complete 6 weeks of iv abx for osteomyelitis if ok with all Subjective ROS Limited/Unobtainable: No Constitutional: Reports: malaise, weakness HEENT: Reports: no symptoms Cardiovascular: Reports: no symptoms Respiratory: Reports: cough Gastrointestinal/Abdominal: Reports: difficulty swallowing, poor appetite, poor fluid intake Genitourinary: Reports: no symptoms Neurologic/Psychiatric: Reports: anxiety, pre-existing deficit Endocrine: Reports: no symptoms Hematologic/Lymphatic: Reports: no symptoms Allergies: Coded Allergies: No Known Allergies (Unverified , 02/27/19) All Systems: reviewed and negative except above Subjective no events. w/o complaints. withdrawn and confused. no fever or chills. no sob. tolerating feeds. labs reviewed. CT consistent with osteo. no pain or distress. all noted. Objective Last 24 Hour Vital Signs Date Time Temp Pulse Resp B/P (MAP) Pulse Ox O2 Delivery O2 Flow Rate FiO2 12/20/19 16:00 97.9 104 18 108/50 (69) 98 12/20/19 12:00 98.0 105 19 97/56 (70) 99 12/20/19 09:00 Room Air 12/20/19 09:00 108 104/60 12/20/19 08:00 97.5 108 20 104/60 (75) 100 12/20/19 04:00 98.2 115 20 103/55 (71) 100 12/20/19 00:00 97.9 112 20 110/58 (75) 99 12/19/19 21:00 Room Air 12/19/19 20:17 112 106/60 12/19/19 20:00 97.3 112 22 106/60 (75) 100 Intake and Output 12/19/19 12/20/19 19:00 07:00 Intake Total 1570 ml 1235 ml Balance 1570 ml 1235 ml Free Water 120 ml 60 ml IV Total 730 ml 635 ml Tube Feeding 720 ml 540 ml Laboratory Tests 12/19/19 17:20: Urine Color Brown, Urine Appearance Clear, Urine pH 6.5, Urine Specific [place] 1.005, Urine Protein 3+H, Urine Glucose (UA) Negative, Urine Ketones 1+H, Urine Blood 1+H, Urine Nitrite PositiveH, Urine Bilirubin 1+H, Urine Ictotest Negative , Urine Urobilinogen Normal, Urine Leukocyte Esterase 2+H, Urine RBC 5-10H, Urine WBC 15-20H, Urine Squamous Epithelial Cells ModerateH, Urine Bacteria ManyH Height (Feet): 5 Height (Inches): 5.00 Weight (Pounds): 106 Objective General Appearance: WD/WN, lethargic, confused EENT: PERRL/EOMI Neck: non-tender, normal alignment, supple Cardiovascular: normal peripheral pulses, normal rate, regular rhythm Respiratory/Chest: chest wall non-tender, lungs clear, normal breath sounds Abdomen: normal bowel sounds, non tender, soft, no organomegaly, no mass Edema: no edema noted Arm (L), no edema noted Arm (R) Neurologic: client administrator II-XII grossly normal, alert, responsive, disoriented Skin: normal pigmentation Lymphatic: normal anterior cervical (L), normal anterior cervical (R) Freddy Quevedo MD Dec 20, 2019 17:15
--- NOTE | 2019-12-20 19:03 | NUR ---
HAND-OFF: Report given to MICHAEL Alvarez.
--- NOTE | 2019-12-20 20:04 | General Progress Note ---
Assessment/Plan Status: stable, progressing Assessment/Plan: Assessment - Anemia - multifactorial, but mainly due to CRF - Anorexia, malnutrition - OBS - Decubitus ulcer - azotemia - leukocytosis - s/p PEG Recommendations - follow CBC - wound care - Continue TF - GT care - elevate HOB - Abx Subjective Allergies: Coded Allergies: No Known Allergies (Unverified , 02/27/19) Subjective Above noted no events overnight tolerating TF Objective Last 24 Hour Vital Signs Date Time Temp Pulse Resp B/P (MAP) Pulse Ox O2 Delivery O2 Flow Rate FiO2 12/20/19 20:00 97.6 111 21 118/57 (77) 95 12/20/19 16:00 97.9 104 18 108/50 (69) 98 12/20/19 12:00 98.0 105 19 97/56 (70) 99 12/20/19 09:00 Room Air 12/20/19 09:00 108 104/60 12/20/19 08:00 97.5 108 20 104/60 (75) 100 12/20/19 04:00 98.2 115 20 103/55 (71) 100 12/20/19 00:00 97.9 112 20 110/58 (75) 99 12/19/19 21:00 Room Air 12/19/19 20:17 112 106/60 Intake and Output 12/19/19 12/20/19 19:00 07:00 Intake Total 1570 ml 1235 ml Balance 1570 ml 1235 ml Free Water 120 ml 60 ml IV Total 730 ml 635 ml Tube Feeding 720 ml 540 ml Height (Feet): 5 Height (Inches): 5.00 Weight (Pounds): 106 Objective Thin AA woman NCAT supple CTA RRR abd soft flat ND Ext no edema (+) decub ulcers OBS Willow Cee MD Dec 20, 2019 20:04
--- NOTE | 2019-12-20 20:06 | NUR ---
NURSE NOTES: Received patient awake, non-verbal, no SOB, tolerating her g-tube feeding well, ongoing hemodialysis.
[2019-12-20] MEDS: Dakin's 0.125% Soln (Quarter Strength) 16oz TOPIC SCH (20:59)
--- NOTE | 2019-12-21 03:10 | Cardiology Progress Note ---
Subjective DATE OF SERVICE: Dec 20, 2019 Remains withdrawn and lethargic BP range still on LOWer range. Clonidine patch was discontinued on 12/16. Now s/p uncomplicated PEG 12/17/19. No fevers/chills, N/V,D. No SOB. CT scan consistent with osteomyelitis. REVIEW OF SYSTEMS: unchanged from assessment of 12/15/19 However noted that atorvastatin dose was decreased to 10mg during last hospitalization, based on lipid panel. Objective Last 24 Hour Vital Signs Date Time Temp Pulse Resp B/P (MAP) Pulse Ox O2 Delivery O2 Flow Rate FiO2 12/20/19 23:54 97.2 98 22 128/54 (78) 94 12/20/19 20:58 116 111/53 12/20/19 20:37 116 111/53 (72) 12/20/19 20:13 Room Air 12/20/19 20:00 97.6 111 21 118/57 (77) 95 12/20/19 16:00 97.9 104 18 108/50 (69) 98 12/20/19 12:00 98.0 105 19 97/56 (70) 99 12/20/19 09:00 Room Air 12/20/19 09:00 108 104/60 12/20/19 08:00 97.5 108 20 104/60 (75) 100 12/20/19 04:00 98.2 115 20 103/55 (71) 100 HEENT: normal ENT inspection RHYTHM: ST LUNGS: lungs clear bilaterally CARDIAC: regular rhythm, normal S1 and S2, rapid rate ABDOMEN: non tender, soft, no organomegaly, distended, G-Tube intact EXTREMITIES: No edema, other - Palpable bruit over UE AV fistula Microbiology Date/Time Source Procedure Growth Status 12/19/19 17:20 Urine,Clean Catch Urine Culture - Preliminary NO GROWTH Resulted Assessment/Plan Assessment/Plan Possible sepsis. Osteomyelitis Severe protein/calorie malnutrition Anemia of CKD ESRD Dysphagia - s/p Gtube. Hx CVA with dementia Metabolic encephalopathy Sinus tachycardia Hypertension/HHD - now with lower BP range. Chronic diastolic CHF Sacral wound - s/p debridement Hypotensive trend - better today HD/UF Limit ultrafiltration DVT prophylaxis Off megace Off clonidine patch No additional antiHTN meds presently needed. Lowered atorvastatin dosing to 10mg qd Fluid challenge for symptomatic hypotension. Agree with outpatient antibiotics (with dialysis) Bulmaro Hester MD Dec 21, 2019 03:10
[2019-12-21 04:00] VITALS: BP 98/47
[2019-12-21] MEDS: Piperacillin/Tazobactam 2.25 GM in D5W 55 ML IVPB SCH (05:00)
--- NOTE | 2019-12-21 07:13 | NUR ---
HAND-OFF: Report given to Edd Burnette RN/Idalmis Emanuel RN.
--- NOTE | 2019-12-21 07:18 | NUR ---
NURSE NOTES: Report received from MICHAEL Alvarez. Patient observed to be sleeping with HOB elevated at 30degrees. No s/sx of SOB/Distress or any pain/discomfort observed from patient. Currently on 2L NC. Patient on GT feeding Nephro 60cc/hr, tubing inplace and intact. Observed to be tolerating feeding well. IV site located on RFA gauge 24, line observed to be asymptomatic, inplace and intact. Bed placed on lowest and locked position. Call light placed within reach and will continue to monitor.
--- NOTE | 2019-12-21 07:50 | General Progress Note ---
Assessment/Plan Problem List: (1) Dementia ICD Codes: F03.90 - Unspecified dementia without behavioral disturbance SNOMED: 70853718 (2) Weakness ICD Codes: R53.1 - Weakness SNOMED: 44842998 (3) ESRD (end stage renal disease) ICD Codes: N18.6 - End stage renal disease SNOMED: 25835832 (4) Hypertensive nephrosclerosis ICD Codes: I12.9 - Hypertensive chronic kidney disease with stage 1 through stage 4 chronic kidney disease, or unspecified chronic kidney disease SNOMED: 679971265 (5) CVA, old, cognitive deficits ICD Codes: I69.319 - Unspecified symptoms and signs involving cognitive functions following cerebral infarction SNOMED: 09743930, 917395838, 669373111, 625870661 (6) Deep tissue injury ICD Codes: T14.8XXA - Other injury of unspecified body region, initial encounter SNOMED: 293832100 (7) acute toxic encephalopathy (8) Severe malnutrition ICD Codes: E43 - Unspecified severe protein-calorie malnutrition SNOMED: 38255820 (9) Sacral decubitus ulcer, stage IV ICD Codes: L89.154 - Pressure ulcer of sacral region, stage 4 SNOMED: 489999349, 573710302 Status: stable, progressing Assessment/Plan: Continue current treatment. GT feeds- titrate. monitor residuals Hemodialysis per renal DVT and stress ulcer prophylaxis Wound care per surgery Frequent turning every 2 hours Psych treatment per psychiatry monitor labs ID and surgery follow up ?dc planning to complete 6 weeks of iv abx for osteomyelitis if ok with all. Subjective ROS Limited/Unobtainable: No Constitutional: Reports: malaise, weakness HEENT: Reports: no symptoms Cardiovascular: Reports: no symptoms Respiratory: Reports: no symptoms Gastrointestinal/Abdominal: Reports: difficulty swallowing, poor appetite, poor fluid intake Genitourinary: Reports: no symptoms Neurologic/Psychiatric: Reports: pre-existing deficit Endocrine: Reports: no symptoms Hematologic/Lymphatic: Reports: anemia Allergies: Coded Allergies: No Known Allergies (Unverified , 02/27/19) All Systems: reviewed and negative except above Subjective no events. tolerating feeds. no residuals. no vomiting or bleeding. confused at baseline. turned every 2. on zosyn q8. Objective Last 24 Hour Vital Signs Date Time Temp Pulse Resp B/P (MAP) Pulse Ox O2 Delivery O2 Flow Rate FiO2 7/31/20 04:00 98.6 65 21 98/47 (64) 94 12/20/19 23:54 97.2 98 22 128/54 (78) 94 12/20/19 21:00 Room Air 12/20/19 20:58 116 111/53 12/20/19 20:37 116 111/53 (72) 12/20/19 20:00 97.6 111 21 118/57 (77) 95 12/20/19 16:00 97.9 104 18 108/50 (69) 98 12/20/19 12:00 98.0 105 19 97/56 (70) 99 12/20/19 09:00 Room Air 12/20/19 09:00 108 104/60 12/20/19 08:00 97.5 108 20 104/60 (75) 100 Intake and Output 12/20/19 12/21/19 19:00 07:00 Intake Total 830 ml 490 ml Output Total 0 ml Balance 830 ml 490 ml Free Water 60 ml IV Total 110 ml 110 ml Tube Feeding 720 ml 320 ml Output Hemodialysis UF 0 ml Height (Feet): 5 Height (Inches): 5.00 Weight (Pounds): 104 Objective General Appearance: WD/WN, lethargic, confused EENT: PERRL/EOMI Neck: non-tender, normal alignment, supple Cardiovascular: normal peripheral pulses, normal rate, regular rhythm Respiratory/Chest: chest wall non-tender, lungs clear, normal breath sounds Abdomen: normal bowel sounds, non tender, soft, no organomegaly, no mass Edema: no edema noted Arm (L), no edema noted Arm (R) 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
[2019-12-21 08:00] VITALS: BP 104/47
[2019-12-21] MEDS: Nephrovite tab (Rena-Vite) ORAL SCH (08:58)
[2019-12-21] MEDS: Aspirin Baby 81mg ORAL SCH (08:58)
[2019-12-21] MEDS: Zinc Sulfate 220mg ORAL SCH (08:58)
[2019-12-21] MEDS: Ascorbic Acid 500mg tab ORAL SCH (08:58)
[2019-12-21] MEDS: Heparin 5000 units/ml inj SUBQ SCH ×2 (08:59→21:34)
[2019-12-21] MEDS: Metoprolol Tartrate 50mg tab ORAL SCH ×2 (08:59→21:26)
--- NOTE | 2019-12-21 10:36 | NUR ---
SCCM ADMINISTRATOR NOTE PER DR RIVAS, IS SNF ABLE TO ADMINISTER IV ABX Q8 X6 WEEKS? CM MADE CALL TO [facility] [phone], S/W DERECK. PER DERECK CONFIRMED SNF IS ABLE TO CONTINUE IV ABX Q8 X6 WEEKS. DR RIVAS INFORMED.
--- NOTE | 2019-12-21 10:39 | NUR ---
CASE MANAGEMENT:REVIEW SI;ENCEPHALOPATHY. SACRAL OSTEOMYELITIS. 98.1 102 22 98/47 94% 2L NC IS;ZOSYN IV Q8 LIPITOR GT HEPARIN SUBQ Q12 ASA GT DAKINS TOPICAL LEXAPRO GT MED [facility]G [facility]; 6 WEEKS IV ABX WOUND CARE GT FEEDING-TITRATE
--- NOTE | 2019-12-21 10:43 | Infectious Diseases Prog Note ---
Assessment/Plan Assessment/Plan antibiotics ; zosyn A 1. coccygeal osteomyelitis 2. dementia 3. hypertension 4. renal failure on HD P 1. d/c zosyn 2. start iv vancomycin 3. sacral culture 4. will follow up cultures Subjective ROS Limited/Unobtainable: Yes Allergies: Coded Allergies: No Known Allergies (Unverified , 02/27/19) Objective Last 24 Hour Vital Signs Date Time Temp Pulse Resp B/P (MAP) Pulse Ox O2 Delivery O2 Flow Rate FiO2 12/21/19 09:00 Nasal Cannula 2.0 12/21/19 08:59 65 98/47 12/21/19 08:00 98.1 102 19 104/47 (66) 98 12/21/19 04:00 98.6 65 21 98/47 (64) 94 12/20/19 23:54 97.2 98 22 128/54 (78) 94 12/20/19 21:00 Room Air 12/20/19 20:58 116 111/53 12/20/19 20:37 116 111/53 (72) 12/20/19 20:00 97.6 111 21 118/57 (77) 95 12/20/19 16:00 97.9 104 18 108/50 (69) 98 12/20/19 12:00 98.0 105 19 97/56 (70) 99 Height (Feet): 5 Height (Inches): 5.00 Weight (Pounds): 104 Respiratory/Chest: lungs clear Cardiovascular: normal rate, regular rhythm, no gallop/murmur Abdomen: soft, non tender, other - GT Extremities: no edema Microbiology Date/Time Source Procedure Growth Status 12/19/19 08:45 Blood Blood Culture - Preliminary NO GROWTH AFTER 24 HOURS Resulted 12/19/19 17:20 Urine,Clean Catch Urine Culture - Preliminary Yeast Species Resulted Current Medications Medications (Trade) Dose Ordered Sig/Jeanne Route PRN Reason Start Time Stop Time Status Last Admin Dose Admin Acetaminophen (Tylenol) 650 mg Q4H PRN ORAL mild pain/T>100.5 12/13/19 20:00 01/12/20 19:59 Ascorbic Acid (Vitamin C) 500 mg DAILY ORAL 12/14/19 09:00 01/13/20 08:59 12/21/19 08:58 Aspirin (ASA) 81 mg DAILY ORAL 12/14/19 09:00 01/28/20 08:59 12/21/19 08:58 Atorvastatin Calcium (Lipitor) 10 mg BEDTIME ORAL 12/18/19 21:00 03/17/20 20:59 12/20/19 20:57 Epoetin Reubne (Epoetin Reuben(ESRD on dialysis)) 6,000 unit TUE-TUE-TUE SUBQ 12/14/19 21:00 03/13/20 20:59 12/19/19 20:16 Escitalopram Oxalate (Lexapro) 10 mg DAILY ORAL 12/14/19 09:00 01/13/20 08:59 12/21/19 08:58 Heparin Sodium (Porcine) (Heparin 5000 units/ml) 5,000 units EVERY 12 HOURS SUBQ 12/14/19 09:00 01/28/20 08:59 12/21/19 08:59 Magnesium Hydroxide (Mom) 30 ml DAILYPRN PRN ORAL Constipation 12/13/19 20:00 01/12/20 19:59 Metoprolol Tartrate (Lopressor) 50 mg Q12HR ORAL 12/13/19 21:00 03/12/20 20:59 12/17/19 21:32 Olanzapine (ZyPREXA) 2.5 mg Q6H PRN ORAL Agitation 12/13/19 20:00 01/27/20 19:59 Piperacillin Sod/ Tazobactam Sod 2.25 gm/Dextrose 55 ml @ 110 mls/hr Q8HR IVPB 12/19/19 12:00 12/26/19 11:59 12/21/19 05:00 Sodium Hypochlorite (Dakin's Quarter Strength) 1 applic QHS TOPIC 12/18/19 21:00 01/17/20 20:59 12/20/19 20:59 Sodium Chloride 1,000 ml @ 500 mls/hr Q2H PRN IVLG sbp<90 during hd 12/20/19 14:13 01/19/20 14:12 Vitamin B Complex/ Vit C/Folic Acid (Nephrovite) 1 tab DAILY ORAL 12/14/19 09:00 01/13/20 08:59 12/21/19 08:58 Zinc Sulfate (Zinc Sulfate) 220 mg DAILY ORAL 12/14/19 09:00 03/13/20 08:59 12/21/19 08:58 Ovidio Wilson MD Dec 21, 2019 10:43
--- NOTE | 2019-12-21 11:02 | Surgery Progress Note ---
Surgery Progress Note Subjective Additional Comments no acute events comfortable stable min responsive Objective Last 24 Hour Vital Signs Date Time Temp Pulse Resp B/P (MAP) Pulse Ox O2 Delivery O2 Flow Rate FiO2 12/21/19 09:00 Nasal Cannula 2.0 12/21/19 08:59 65 98/47 12/21/19 08:00 98.1 102 19 104/47 (66) 98 12/21/19 04:00 98.6 65 21 98/47 (64) 94 12/20/19 23:54 97.2 98 22 128/54 (78) 94 12/20/19 21:00 Room Air 12/20/19 20:58 116 111/53 12/20/19 20:37 116 111/53 (72) 12/20/19 20:00 97.6 111 21 118/57 (77) 95 12/20/19 16:00 97.9 104 18 108/50 (69) 98 12/20/19 12:00 98.0 105 19 97/56 (70) 99 I&O Intake and Output 12/20/19 12/21/19 19:00 07:00 Intake Total 830 ml 490 ml Output Total 0 ml Balance 830 ml 490 ml Free Water 60 ml IV Total 110 ml 110 ml Tube Feeding 720 ml 320 ml Output Hemodialysis UF 0 ml Dressing: saturated Wound: clean Cardiovascular: RSR Respiratory: clear, decreased breath sounds Abdomen: non-tender, present bowel sounds Extremities: no cyanosis Plan Problems: (1) Sacral decubitus ulcer, stage IV Assessment & Plan: 74-year-old female with large DTI prior necrotic tissue significant requiring debridement status post excisional debridement identifying nonviable tissue down to coccyx and sacrum. Patient is been doing well and recovering the nursing facility with good local care. She now presents still has a large open wound which was goal to have complete granulation potential closure and coverage at some point. Unfortunately given her nutritional status and decreased oral intake she is deteriorated somewhat does have some necrotic edges and slough noted in the wound bed. There is some granulation tissue approximately 6070% with some backbleeding as well. Currently no nausea vomiting fever chills. Labs noted. Albumin low. BMI low. Poor nutritional status. At this time would recommend PEG tube placement and initiation of tube feeds along with oral intake for gratification. Patient needs nutritional optimization for her wounds and her overall care plan. We will follow with recommendations Pt presented on admission with multiple Pressure injuries. Full thickness stage 4Sacral Pressure injury with undermined borders(L)12.5cm x (W)13.5cm, Undermining clockwise 2-5 by 2.5cm @3o'clock, Undermining Clockwise 10-12 by 2.6cm@10o'clock. Scattered slough ,10% necrotic at base. Bone is palpable. Undermined borders clockwise 9-3o'clock is indurated and necrotic. Surrounding perimeter of wound is indurated, purpuric and red tinged. At apex of wound along borders is an area of necrosis from 11-3o'clock.Wound is malodorous. Small amt taylor coloured exudate noted. At R Sacrum, in close proximity to above Sacral wound is a DTPI(L)6cm x (W)3cm. Base of pressure injury is purpuric with linear area of blood filled blister. Marginal erythema along borders.Marginal erythema along borders. At R Iliac is and area of hyperpigmentation with DTPI evolving along L aspect of borders of hyperpigmented area(L)2cm x ((W)2.2cm. DTPI L Ischium(L)6cm x (W)6.5cm. Base of wound is indurated, purpuric with surrounding non-blanching erythema. Scattered area of hypopigmentation noted to most medial aspect of L Ischium and perineum. Unstageable Pressure injury R Heel. Stable dry eschar noted. (L)2cm x (W)3.4cm. Periwound R Heel is blanchable but boggy. DTPI Medial L Heel(L)3cm x (W)4cm. Base of wound is maroon and indurated. Unstageable Pressure injury L lateral Malleolus(L)3cm x (W)3cm. 100% Dry brown/ black eschar noted at base of wound. DTPI R Lateral Malleolus(L)0.5cm x (W)2cm. Base of wound is indurated purpuric with marginal erythema along borders. Tx.Plan: Cleanse Sacral wound with Dakin's 0.125% Adwoa. Loosely pack sacral wound with Dakin's moistened KERLIX. Apply Moisture Barrier Paste along borders. Cover with Optifoam drsg DAILY and PRN Apply Cavilon Skin Barrier to R Iliac. R sacrum,L Ischium. Cover each site with Optifoam drsgs. Change every 3 days and prn. Apply Betadine to Malleoli and both heels. Cover each site with Optifoam Drsgs. Change every 3days and prn. Reposition at least every 2hours or as tolerated. Place pillow between knees. Off-load heels with pillows. Air fluidized Mattress. (2) Severe malnutrition Assessment & Plan: s/p peg tf as tolerated DAILY ESTIMATED NEEDS: Needs based on Renal, HD, wound, 45.5kg 30-40 kcals/kg 8403-6505 total kcals 1.25-2 g protein/kg 57-91 g total protein Fluid per MD, on HD NUTRITION DIAGNOSIS: Increased kcal/prot intake needs R/T renal dysfunction, underweight status, wound healing as evidenced by ESRD dx, on HD, pt is 73% of [place] Body Weight w/ recent sacral stage 4 wound, s/p surgical debridement, pt os now s/p PEG placement. CURRENT DIET:NPO PO DIET RECOMMENDATIONS: liberalized regular diet/ texture as tolerated or per GANG MOWER OPERATOR for oral grat ENTERAL NUTRITION RECOMMENDATIONS: Nepro w/ goal of 40ml/hr x24 hrs to provide 960ml, 1728 kcal, 78g pro, 698ml free H2O - As medically able w/ GI access, start Nepro @20ml/hr for 6 hrs, advance 5ml/hr q4 hrs to goal. - Flush per MD, on HD - HOB over 30 degrees ADDITIONAL RECOMMENDATIONS: * TF recs as above * GANG MOWER OPERATOR if appropriate for oral grat * Wound healing: SIS BID + Nephrovite qdaily Vit C 250 mg BID (or per nephro), ZnSO4 220mg qd (or per Nephro) * Maintain calibrated bed scale wts; 45.5kg on calibrated bed (12/16) (3) Dementia (4) Leukocytosis (5) Weakness (6) ESRD (end stage renal disease) (7) Hypertensive nephrosclerosis (8) Anemia in chronic kidney disease (9) CVA, old, cognitive deficits (10) Deep tissue injury (11) acute toxic encephalopathy Jesse Quinn Dec 21, 2019 11:02
--- NOTE | 2019-12-21 11:41 | NUR ---
*-*DISCHARGE PLANNING*-* PATIENT HAS BEEN REFERRED BACK TO: [facility] P: [phone]
--- NOTE | 2019-12-21 11:50 | NUR ---
*-*DISCHARGE PLANNING*-* PATIENT HAS BEEN ACCEPTED BACK TO: [facility] P: [phone] S/W MICHAEL, STATED PATIENT WILL BE ASSIGNED TO ROOM# 12.A SKILLED, UPON DISCHARGE.
[2019-12-21 12:00] VITALS: BP 94/42
[2019-12-21] MEDS ORDERED: Vancomycin 1gm/D5W 275ml IVPB ONE ×2 (12:00)
--- NOTE | 2019-12-21 12:04 | Cardiology Progress Note ---
Subjective DATE OF SERVICE: Dec 21, 2019 Remains withdrawn, but more alert. WBC up; urine with yeast. BP range better. Clonidine patch was discontinued on 12/16. Now s/p uncomplicated PEG 12/17/19. No fevers/chills, N/V,D. No SOB. CT scan consistent with osteomyelitis. REVIEW OF SYSTEMS: unchanged from assessment of 12/15/19 However noted that atorvastatin dose was decreased to 10mg during last hospitalization, based on lipid panel. Objective Last 24 Hour Vital Signs Date Time Temp Pulse Resp B/P (MAP) Pulse Ox O2 Delivery O2 Flow Rate FiO2 12/21/19 09:00 Nasal Cannula 2.0 12/21/19 08:59 65 98/47 12/21/19 08:00 98.1 102 19 104/47 (66) 98 12/21/19 04:00 98.6 65 21 98/47 (64) 94 12/20/19 23:54 97.2 98 22 128/54 (78) 94 12/20/19 21:00 Room Air 12/20/19 20:58 116 111/53 12/20/19 20:37 116 111/53 (72) 12/20/19 20:00 97.6 111 21 118/57 (77) 95 12/20/19 16:00 97.9 104 18 108/50 (69) 98 HEENT: normal ENT inspection RHYTHM: ST LUNGS: lungs clear bilaterally CARDIAC: regular rhythm, normal S1 and S2, rapid rate ABDOMEN: non tender, soft, no organomegaly, distended, G-Tube intact EXTREMITIES: No edema, other - Palpable bruit over UE AV fistula Microbiology Date/Time Source Procedure Growth Status 12/19/19 08:45 Blood Blood Culture - Preliminary NO GROWTH AFTER 24 HOURS Resulted 12/19/19 17:20 Urine,Clean Catch Urine Culture - Preliminary Yeast Species Resulted Assessment/Plan Assessment/Plan Possible sepsis. Osteomyelitis Severe protein/calorie malnutrition Anemia of CKD ESRD Dysphagia - s/p Gtube. Hx CVA with dementia Metabolic encephalopathy Sinus tachycardia Hypertension/HHD - now with lower BP range. Chronic diastolic CHF Sacral wound - s/p debridement Hypotensive trend - stabilized off meds Fungal cystitis HD/UF Limit ultrafiltration DVT prophylaxis Off megace Off clonidine patch No additional antiHTN meds presently needed. Lowered atorvastatin dosing to 10mg qd Fluid challenge for symptomatic hypotension. Diflucan added Agree with outpatient antibiotics (with dialysis) Bulmaro Hester MD Dec 21, 2019 12:04
--- NOTE | 2019-12-21 12:52 | Nephrology Progress Note ---
Assessment/Plan Problem List: (1) ESRD (end stage renal disease) (2) Hypertensive nephrosclerosis (3) CVA, old, cognitive deficits (4) Severe malnutrition (5) Sacral decubitus ulcer, stage IV (6) adult onset diabetes Plan HD TTS PEG decubitus care, bp low-nl, dc iv, glu 2300+ SS insulin Subjective ROS Limited/Unobtainable: Yes Objective Objective Last 24 Hour Vital Signs Date Time Temp Pulse Resp B/P (MAP) Pulse Ox O2 Delivery O2 Flow Rate FiO2 12/21/19 09:00 Nasal Cannula 2.0 12/21/19 08:59 65 98/47 12/21/19 08:00 98.1 102 19 104/47 (66) 98 12/21/19 04:00 98.6 65 21 98/47 (64) 94 12/20/19 23:54 97.2 98 22 128/54 (78) 94 12/20/19 21:00 Room Air 12/20/19 20:58 116 111/53 12/20/19 20:37 116 111/53 (72) 12/20/19 20:00 97.6 111 21 118/57 (77) 95 12/20/19 16:00 97.9 104 18 108/50 (69) 98 Intake and Output 12/20/19 12/21/19 19:00 07:00 Intake Total 830 ml 490 ml Output Total 0 ml Balance 830 ml 490 ml Free Water 60 ml IV Total 110 ml 110 ml Tube Feeding 720 ml 320 ml Output Hemodialysis UF 0 ml Height (Feet): 5 Height (Inches): 5.00 Weight (Pounds): 104 General Appearance: lethargic, confused Neck: supple Cardiovascular: regular rhythm, systolic murmur Respiratory/Chest: lungs clear Abdomen: non tender Neurologic: 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
--- NOTE | 2019-12-21 13:21 | NUR ---
NURSE NOTES: spoke to DIXON norton for scheduling HD on 12/22/19.
[2019-12-21] MEDS: Fluconazole 100mg tab ORAL SCH (13:39)
[2019-12-21 16:00] VITALS: BP 118/67
[2019-12-21] MEDS: NovoLOG Insulin Flexpen SUBQ SCH ×2 (17:14→21:34)
--- NOTE | 2019-12-21 18:22 | NUR ---
NURSE NOTES:WOUND CARE FOLLOW-UP NOTES:Full thickness Sacral Pressure injury is grossly Malodorous. Base of wound is jamila with scattered fibrinous slough(L)12.5cm x (W)12cm x (D)2.4cm, Undermining clockwise 9-3 by 3.7cm @9o'clock.Dense soft Necrosis with surrounding induration which is purpuric noted to undermined borders clockwise at 9-3o'clock. Moderate amt. Purulent,and Malodorous mckinney exudate noted from undermined borders. Additional wounds with slough noted to periwound. Wound including indurated Borders measures (L)17.7cm x (W)14.6cm..Resolving Pressure injury L trochanter (L)0.9cm x (W)0.5cm. Wound is jamila in center with surrounding pink epithelial. No exudate noted . Hyperpigmentation noted to L Ischium.No evidence of further skin breakdown periwound. Hypopigmentation noted to labia majora. Reabsorbed DTPI L Heel. Base of pressure injury is dry and brown. No erythema or fluctuance noted. Stable dry brown eschar noted to medial R heel. No erythema or fluctuance noted to periwound.(L)3.8cm x (W)3.2cm. Non-Blanching erythema without induration/fluctuance R Hallux(L)2.5cm x (W)2cm. Sacral wound irrigated with Dakins alejandra 0.125%. Small amt loose non-Viable tissue removed with friction. No Bleeding noted but Purulent mckinney exudate oozes from undermined Necrotic Borders of wound when probed. Wound loosely packed with Dakin's moistened Kerlix . Moisture Barrier Paste applied to borders and periwound and covered with Optifoam drsg. Moisture Barrier applied to L trochanter and L ischium. Each area covered with Optifoam drsg. . Cavilon Skin Barrier applied to each heel and malleoli and each Hallux . Each area covered with Optifoam drsgs.Pt positioned with [pillow on her side ,pillow placed between knees and with both heels floated off mattress with pillow. Pt has an Air Fluidized mattress on her . Tx orders are appropriate and continued as ordered.
--- NOTE | 2019-12-21 19:25 | NUR ---
HAND-OFF: Report given to BARBARA Joseph.
[2019-12-21 20:00] VITALS: BP 94/53
--- NOTE | 2019-12-21 20:00 | NUR ---
NURSE NOTES: RECEIVED PATIENT LYING IN BED, EYES OPEN, NON VERBAL, ALL NEEDS ANTICIPATED AND MET BY STAFF. NO SIGNS AND SYMPTOMS OF ACUTE CARDIO RESPIRATORY DISTRESS/SHORTNESS OF BREATH, NO PERIPHERAL EDEMA NOTED. IV INTACT TO RIGHT FOREARM/GAUGE 24, SALINE LOCK, NO REDNESS/SWELLING NOTED. G TUBE INTACT/PATENT, TOLERATING FEEDING, NO GASTRIC RESIDUAL ASPIRATED. CONTACT ISOLATION PRECAUTIONS OBSERVED AT ALL TIMES. CONTRACTED UPPER AND LOWER EXTREMITIES, REPOSITIONED FOR COMFORT/PRESSURE RELIEF, TOLERATED WELL. SIDE RAILS UP X3/BED IN LOWEST POSITION FOR SAFETY, BED ALARM ACTIVATED. CONTINUE WITH CURRENT PLAN OF CARE. NAD.
[2019-12-21] MEDS: Epoetin Alfa-EPBX(ESRD on dialysis)3000 units/ml vial SUBQ SCH (21:26)
[2019-12-21] MEDS: Dakin's 0.125% Soln (Quarter Strength) 16oz TOPIC SCH (21:35)
--- NOTE | 2019-12-21 21:48 | General Progress Note ---
Assessment/Plan Status: stable, progressing Assessment/Plan: Assessment - Anemia - multifactorial, but mainly due to CRF - Anorexia, malnutrition - OBS - Decubitus ulcer - azotemia - leukocytosis - s/p PEG Recommendations - follow CBC - wound care - Continue TF - GT care - elevate HOB - Abx Subjective Allergies: Coded Allergies: No Known Allergies (Unverified , 02/27/19) Subjective Above noted no events overnight tolerating TF Objective Last 24 Hour Vital Signs Date Time Temp Pulse Resp B/P (MAP) Pulse Ox O2 Delivery O2 Flow Rate FiO2 12/21/19 21:26 99 118/58 12/21/19 16:00 97.9 95 19 118/67 (84) 100 12/21/19 12:00 97.2 97 20 94/42 (59) 100 12/21/19 09:00 Nasal Cannula 2.0 12/21/19 08:59 65 98/47 12/21/19 08:00 98.1 102 19 104/47 (66) 98 12/21/19 04:00 98.6 65 21 98/47 (64) 94 12/20/19 23:54 97.2 98 22 128/54 (78) 94 Intake and Output 12/20/19 12/21/19 19:00 07:00 Intake Total 830 ml 1430 ml Output Total 0 ml Balance 830 ml 1430 ml Free Water 160 ml IV Total 110 ml 110 ml Tube Feeding 720 ml 360 ml Blood Product 800 ml Output Hemodialysis UF 0 ml Height (Feet): 5 Height (Inches): 5.00 Weight (Pounds): 104 Objective Thin AA woman NCAT supple CTA RRR abd soft flat ND Ext no edema (+) decub ulcers OBS Willow Cee MD Dec 21, 2019 21:48
[2019-12-22] VITALS: BP 119/56
[2019-12-22 04:00] VITALS: BP 112/52
--- NOTE | 2019-12-22 06:01 | NUR ---
NURSE NOTES: RESTED WELL, NO SIGNIFICANT CHANGE OF CONDITION NOTED THROUGHOUT THE NIGHT. SAFETY MAINTAINED. NAD,.
[2019-12-22] MEDS: NovoLOG Insulin Flexpen SUBQ SCH ×4 (06:13→21:39)
--- NOTE | 2019-12-22 06:55 | General Progress Note ---
Assessment/Plan Status: stable, progressing Assessment/Plan: Assessment - Anemia - multifactorial, but mainly due to CRF - Anorexia, malnutrition - OBS - Decubitus ulcer / osteo - azotemia - leukocytosis - s/p PEG Recommendations - follow CBC - wound care - Continue TF - GT care - elevate HOB - Abx Subjective Allergies: Coded Allergies: No Known Allergies (Unverified , 02/27/19) Subjective Above noted no events overnight tolerating TF Objective Last 24 Hour Vital Signs Date Time Temp Pulse Resp B/P (MAP) Pulse Ox O2 Delivery O2 Flow Rate FiO2 12/22/19 04:00 98.5 106 20 112/52 (72) 99 12/22/19 00:00 98.6 101 20 119/56 (77) 98 12/21/19 21:26 99 118/58 12/21/19 21:00 Nasal Cannula 2.0 12/21/19 20:00 98.8 107 20 94/53 (67) 98 12/21/19 16:00 97.9 95 19 118/67 (84) 100 12/21/19 12:00 97.2 97 20 94/42 (59) 100 12/21/19 09:00 Nasal Cannula 2.0 12/21/19 08:59 65 98/47 12/21/19 08:00 98.1 102 19 104/47 (66) 98 Intake and Output 12/21/19 12/22/19 19:00 07:00 Intake Total 460 ml 660 ml Balance 460 ml 660 ml Free Water 60 ml 220 ml Tube Feeding 400 ml 440 ml # Bowel Movements 1 Laboratory Tests 12/22/19 05:45: Random Vancomycin Level [Pending] Height (Feet): 5 Height (Inches): 5.00 Weight (Pounds): 104 Objective Thin AA woman NCAT supple CTA RRR abd soft flat ND Ext no edema (+) decub ulcers OBS Willow Cee MD Dec 22, 2019 06:55
--- NOTE | 2019-12-22 06:58 | NUR ---
HAND-OFF: Report given to MICHAEL ROBINS.
--- NOTE | 2019-12-22 07:54 | NUR ---
NURSE NOTES: Patient awake, non verbal; on Nasal Cannula 2 Liter, no sing of distress and shortness of breath; no sing of chest pain; IV Right For-arm flushes well; Hemodialysis access on Left Upper Arm; patient scheduled to get dialysis today, per Hemodialysis nurse, Hold BP meds; G-tube running Nephro @40cc, no residual at this time and flushes well; head of the bed elevated of aspiration percussion; side rails up x2, bed at lowest position, breaks engaged, bed alarm on; P[address]; wound dressing dry and intact; will provide wound care, check blood sugar as schedule and carry out the plan of care;
[2019-12-22 08:00] VITALS: BP 124/67
[2019-12-22] MEDS ORDERED: Heparin Sod 1000 units/ml 10ml IV PRN (08:00)
[2019-12-22] MEDS: Heparin 5000 units/ml inj SUBQ SCH ×2 (09:00→20:48)
[2019-12-22] MEDS: Metoprolol Tartrate 50mg tab ORAL SCH ×2 (09:00→20:48)
--- NOTE | 2019-12-22 09:11 | Surgery Progress Note ---
Surgery Progress Note Subjective Symptoms: improved, tolerating diet, passing flatus Objective Last 24 Hour Vital Signs Date Time Temp Pulse Resp B/P (MAP) Pulse Ox O2 Delivery O2 Flow Rate FiO2 12/22/19 04:00 98.5 106 20 112/52 (72) 99 12/22/19 00:00 98.6 101 20 119/56 (77) 98 12/21/19 21:26 99 118/58 12/21/19 21:00 Nasal Cannula 2.0 12/21/19 20:00 98.8 107 20 94/53 (67) 98 12/21/19 16:00 97.9 95 19 118/67 (84) 100 12/21/19 12:00 97.2 97 20 94/42 (59) 100 I&O Intake and Output 12/21/19 12/22/19 19:00 07:00 Intake Total 460 ml 660 ml Balance 460 ml 660 ml Free Water 60 ml 220 ml Tube Feeding 400 ml 440 ml # Bowel Movements 1 Dressing: saturated Cardiovascular: RSR Respiratory: decreased breath sounds Abdomen: soft, non-tender, present bowel sounds Extremities: no edema, no tenderness, no cyanosis Laboratory Tests Test 12/22/19 05:45 Random Vancomycin Level 13.7 ug/mL Plan Problems: (1) Sacral decubitus ulcer, stage IV Assessment & Plan: 74-year-old female with large DTI prior necrotic tissue significant requiring debridement status post excisional debridement identifying nonviable tissue down to coccyx and sacrum. Patient is been doing well and recovering the nursing facility with good local care. She now presents still has a large open wound which was goal to have complete granulation potential closure and coverage at some point. Unfortunately given her nutritional status and decreased oral intake she is deteriorated somewhat does have some necrotic edges and slough noted in the wound bed. There is some granulation tissue approximately 6070% with some backbleeding as well. Currently no nausea vomiting fever chills. Labs noted. Albumin low. BMI low. Poor nutritional status. At this time would recommend PEG tube placement and initiation of tube feeds along with oral intake for gratification. Patient needs nutritional optimization for her wounds and her overall care plan. We will follow with recommendations Pt presented on admission with multiple Pressure injuries. Full thickness stage 4Sacral Pressure injury with undermined borders(L)12.5cm x (W)13.5cm, Undermining clockwise 2-5 by 2.5cm @3o'clock, Undermining Clockwise 10-12 by 2.6cm@10o'clock. Scattered slough ,10% necrotic at base. Bone is palpable. Undermined borders clockwise 9-3o'clock is indurated and necrotic. Surrounding perimeter of wound is indurated, purpuric and red tinged. At apex of wound along borders is an area of necrosis from 11-3o'clock.Wound is malodorous. Small amt taylor coloured exudate noted. At R Sacrum, in close proximity to above Sacral wound is a DTPI(L)6cm x (W)3cm. Base of pressure injury is purpuric with linear area of blood filled blister. Marginal erythema along borders.Marginal erythema along borders. At R Iliac is and area of hyperpigmentation with DTPI evolving along L aspect of borders of hyperpigmented area(L)2cm x ((W)2.2cm. DTPI L Ischium(L)6cm x (W)6.5cm. Base of wound is indurated, purpuric with surrounding non-blanching erythema. Scattered area of hypopigmentation noted to most medial aspect of L Ischium and perineum. Unstageable Pressure injury R Heel. Stable dry eschar noted. (L)2cm x (W)3.4cm. Periwound R Heel is blanchable but boggy. DTPI Medial L Heel(L)3cm x (W)4cm. Base of wound is maroon and indurated. Unstageable Pressure injury L lateral Malleolus(L)3cm x (W)3cm. 100% Dry brown/ black eschar noted at base of wound. DTPI R Lateral Malleolus(L)0.5cm x (W)2cm. Base of wound is indurated purpuric with marginal erythema along borders. Tx.Plan: Cleanse Sacral wound with Dakin's 0.125% Adwoa. Loosely pack sacral wound with Dakin's moistened KERLIX. Apply Moisture Barrier Paste along borders. Cover with Optifoam drsg DAILY and PRN Apply Cavilon Skin Barrier to R Iliac. R sacrum,L Ischium. Cover each site with Optifoam drsgs. Change every 3 days and prn. Apply Betadine to Malleoli and both heels. Cover each site with Optifoam Drsgs. Change every 3days and prn. Reposition at least every 2hours or as tolerated. Place pillow between knees. Off-load heels with pillows. Air fluidized Mattress. (2) Severe malnutrition Assessment & Plan: s/p peg tf as tolerated DAILY ESTIMATED NEEDS: Needs based on Renal, HD, wound, 45.5kg 30-40 kcals/kg 0264-0782 total kcals 1.25-2 g protein/kg 57-91 g total protein Fluid per MD, on HD NUTRITION DIAGNOSIS: Increased kcal/prot intake needs R/T renal dysfunction, underweight status, wound healing as evidenced by ESRD dx, on HD, pt is 73% of [place] Body Weight w/ recent sacral stage 4 wound, s/p surgical debridement, pt os now s/p PEG placement. CURRENT DIET:NPO PO DIET RECOMMENDATIONS: liberalized regular diet/ texture as tolerated or per ICU NURSE for oral grat ENTERAL NUTRITION RECOMMENDATIONS: Nepro w/ goal of 40ml/hr x24 hrs to provide 960ml, 1728 kcal, 78g pro, 698ml free H2O - As medically able w/ GI access, start Nepro @20ml/hr for 6 hrs, advance 5ml/hr q4 hrs to goal. - Flush per MD, on HD - HOB over 30 degrees ADDITIONAL RECOMMENDATIONS: * TF recs as above * ICU NURSE if appropriate for oral grat * Wound healing: SIS BID + Nephrovite qdaily Vit C 250 mg BID (or per nephro), ZnSO4 220mg qd (or per Nephro) * Maintain calibrated bed scale wts; 45.5kg on calibrated bed (12/16) (3) Dementia (4) Leukocytosis (5) Weakness (6) ESRD (end stage renal disease) (7) Hypertensive nephrosclerosis (8) Anemia in chronic kidney disease (9) CVA, old, cognitive deficits (10) Deep tissue injury (11) acute toxic encephalopathy Jesse Quinn Dec 22, 2019 09:11
[2019-12-22] MEDS: Ascorbic Acid 500mg tab ORAL SCH (09:18)
[2019-12-22] MEDS: Zinc Sulfate 220mg ORAL SCH (09:18)
[2019-12-22] MEDS: Nephrovite tab (Rena-Vite) ORAL SCH (09:18)
[2019-12-22] MEDS: Aspirin Baby 81mg ORAL SCH (09:18)
[2019-12-22] MEDS: Fluconazole 100mg tab ORAL SCH (09:18)
[2019-12-22 12:00] VITALS: BP 139/63
[2019-12-22] MEDS ORDERED: VANCOMYCIN750 MG/150 IVPB (12:21)
--- NOTE | 2019-12-22 13:47 | Nephrology Progress Note ---
Assessment/Plan Problem List: (1) ESRD (end stage renal disease) (2) Hypertensive nephrosclerosis (3) CVA, old, cognitive deficits (4) Severe malnutrition (5) Sacral decubitus ulcer, stage IV (6) adult onset diabetes Plan HD TTS PEG decubitus care, bp low-nl, dc iv, glu 200+ SS insulin Subjective ROS Limited/Unobtainable: Yes Objective Objective Last 24 Hour Vital Signs Date Time Temp Pulse Resp B/P (MAP) Pulse Ox O2 Delivery O2 Flow Rate FiO2 12/22/19 12:00 95.2 92 18 139/63 (88) 100 12/22/19 09:00 Nasal Cannula 2.0 12/22/19 08:00 96.1 101 17 124/67 (86) 100 12/22/19 04:00 98.5 106 20 112/52 (72) 99 12/22/19 00:00 98.6 101 20 119/56 (77) 98 12/21/19 21:26 99 118/58 12/21/19 21:00 Nasal Cannula 2.0 12/21/19 20:00 98.8 107 20 94/53 (67) 98 12/21/19 16:00 97.9 95 19 118/67 (84) 100 Intake and Output 12/21/19 12/22/19 19:00 07:00 Intake Total 460 ml 660 ml Balance 460 ml 660 ml Free Water 60 ml 220 ml Tube Feeding 400 ml 440 ml # Bowel Movements 1 Laboratory Tests 12/22/19 05:45: Random Vancomycin Level 13.7 Height (Feet): 5 Height (Inches): 5.00 Weight (Pounds): 104 General Appearance: lethargic, confused Neck: normal alignment Cardiovascular: regular rhythm Respiratory/Chest: lungs clear Abdomen: soft Extremities: no edema Neurologic: abnormal overnight stocker II-XII, motor weakness Dylon Stringer MD Dec 22, 2019 13:47
--- NOTE | 2019-12-22 15:00 | NUR ---
DISCHARGE PLANNING: NOTE 1250- CALL RECEIVED FROM PENNY HENAO INDICATING THAT MD RIVAS IS DISCHARGING THIS PT NOTES REVIEWED. "dc planning to complete 6 weeks of iv abx for osteomyelitis if ok with all" NURSING TO OBTAIN CLEARANCE MESSAGE LEFT FOR MD RIVAS TO CLARIFY IF HE IS DISCHARGING THIS PT TODAY. AWAITING RESPONSE. 1500- NO CALL BACK RECEIVED. PENNY WILL CONT TO MONITOR FOR DC
--- NOTE | 2019-12-22 15:51 | NUR ---
NURSE NOTES: Wound care provided; patient tolerated well; pictures uploaded on patient's file;
[2019-12-22 16:00] VITALS: BP 144/72
--- NOTE | 2019-12-22 16:44 | NUR ---
NURSE NOTES: Hemodialysis nurse, Clive, called and said will dialysis this patient after 1900; charge nurse, Fredy is aware;
[2019-12-22] MEDS ORDERED: Vancomycin 1gm/D5W 275ml IVPB ONE ×2 (18:00)
--- NOTE | 2019-12-22 19:35 | NUR ---
HAND-OFF: Report given to MICHAEL Myers. Patient is getting Hemodialysis now; G-tube feeding running; IV KTO; patient in stable condition; plan of care endorsed to the incoming nurse;
--- NOTE | 2019-12-22 19:36 | NUR ---
NURSE NOTES: Received a pt on the bed awake, receiving HD , and non verbal. No sob, fever, pain and cough at the moment. Iv is intact and asymptomatic. Bed in the lowest position,locked , alarm on and call light within reach.
[2019-12-22 20:00] VITALS: BP_SYST 111; BP_SYST 162; BP_DIAS 66; BP_DIAS 99
[2019-12-22] MEDS: Dakin's 0.125% Soln (Quarter Strength) 16oz TOPIC SCH (21:00)
--- NOTE | 2019-12-22 21:30 | NUR ---
NURSE NOTES: Pt vomited x3 while getting HD. checked residual and the residual is more than 150. conntacted Dr rosado and he ordered Zofran, Kub stat, morning cbc and cmp, D5 1/2 ns 100cc, and hold feeding until further instruction. We will keep monitoring the pt
[2019-12-22] MEDS: D5 1/2NS 1,000 ML IV SCH (22:14)
--- NOTE | 2019-12-22 23:33 | Diagnostic Imaging Report ---
EXAM: XR Abdomen, 2 Views CLINICAL HISTORY: VOMITING TECHNIQUE: Frontal view of the abdomen/pelvis with upright view of the abdomen. COMPARISON: No relevant prior studies available. FINDINGS/IMPRESSION: Nonobstructed bowel gas pattern. No free air. The lung bases are clear. Degenerative changes of the spine. Moderate fecal retention in the rectum. Correlate for fecal impaction.
[2019-12-23] VITALS (7 sets, daily range): BP systolic 107–142; BP diastolic 56–73
[2019-12-23] MEDS: NovoLOG Insulin Flexpen SUBQ SCH ×4 (06:13→20:25)
[2019-12-23 06:39] LABS: HEMATOCRIT 21.9 % (37.0-47.0); MEAN CORPUSCULAR VOLUME 90 FL (80-99); PLATELET COUNT 233 K/UL (150-450); RED BLOOD COUNT 2.42 M/UL (4.20-5.40); RED CELL DISTRIBUTION WIDTH 15.2 % (11.6-14.8); WHITE BLOOD COUNT 12.9 K/UL (4.8-10.8)
[2019-12-23 07:05] LABS: HEMOGLOBIN 6.9 G/DL (12.0-16.0)
[2019-12-23 07:10] LABS: ALANINE AMINOTRANSFERASE 62 U/L (12-78); ALBUMIN 1.3 G/DL (3.4-5.0); ALBUMIN/GLOBULIN RATIO 0.3 (1.0-2.7); ALKALINE PHOSPHATASE 107 U/L (46-116); ANION GAP 2 mmol/L (5-15); ASPARTATE AMINO TRANSFERASE 52 U/L (15-37); BILIRUBIN,TOTAL 0.4 MG/DL (0.2-1.0); BLOOD UREA NITROGEN 21 mg/dL (7-18); CALCIUM 8.6 MG/DL (8.5-10.1); CARBON DIOXIDE 37 MMOL/L (21-32); CHLORIDE 100 MMOL/L (98-107); CREATININE 2.2 MG/DL (0.55-1.30); POTASSIUM 3.9 MMOL/L (3.5-5.1); SODIUM 139 MMOL/L (136-145)
--- NOTE | 2019-12-23 07:20 | NUR ---
NURSE NOTES: Brenna from lab called and notified me the pt hemoglobin is 6.9. Called and Dr. Jerome and left voice mail. We will keep monitoring the pt.
--- NOTE | 2019-12-23 07:23 | NUR ---
HAND-OFF: Report given to MICHAEL CASAS.
--- NOTE | 2019-12-23 07:30 | NUR ---
NURSE NOTES: received patient in bed, asleep, no sign of distress in 2L O2/min. GT feeding on hold per dr's order following vomiting x3 and high residual per NOC MICHAEL Mcmahan. Patient receives IVF though RFA IV access, no sign of infiltration or leakage noted. DAVID AV shunt. On Fall precautions and yellow gown and socks and sign at the door and physical chart. Current hg 6.9, dr Quevedo notified. Patient on low pressure mattress and heels floating, pillows on lower legs. Bed locked at the lowest position possible, call light within easy reach, siderails up x3. Will continue to monitor patient and follow up with the plan of care.
[2019-12-23] MEDS: Metoprolol Tartrate 50mg tab ORAL SCH ×2 (08:57→20:27)
[2019-12-23] MEDS: Aspirin Baby 81mg ORAL SCH (08:57)
[2019-12-23] MEDS: Fluconazole 100mg tab ORAL SCH (08:57)
[2019-12-23] MEDS: Nephrovite tab (Rena-Vite) ORAL SCH (08:57)
[2019-12-23] MEDS: Zinc Sulfate 220mg ORAL SCH (08:57)
[2019-12-23] MEDS: Ascorbic Acid 500mg tab ORAL SCH (08:57)
[2019-12-23] MEDS: D5 1/2NS 1,000 ML IV SCH ×2 (08:59→16:38)
[2019-12-23] MEDS: Heparin 5000 units/ml inj SUBQ SCH ×2 (08:59→20:29)
--- NOTE | 2019-12-23 12:30 | NUR ---
NURSE NOTES: patient received visit from dr Cee and dr Ambrosio. dr ambrosio asked nurse to take out dressing of DAVID AV shunt, wash with soap and water and leave ANSHUL. Nurse has done it as requested by
[2019-12-23 12:48] LABS: BASOPHILS % (AUTO) 0.5 % (0.0-2.0); EOSINOPHILS % (AUTO) 0.3 % (0.0-3.0); HEMATOCRIT 26.7 % (37.0-47.0); HEMOGLOBIN 8.2 G/DL (12.0-16.0); LYMPHOCYTES % (AUTO) 18.6 % (20.0-45.0); MEAN CORPUSCULAR VOLUME 92 FL (80-99); MONOCYTES % (AUTO) 6.1 % (1.0-10.0); NEUTROPHILS % (AUTO) 74.6 % (45.0-75.0); PLATELET COUNT 260 K/UL (150-450); RED BLOOD COUNT 2.92 M/UL (4.20-5.40); RED CELL DISTRIBUTION WIDTH 15.3 % (11.6-14.8); WHITE BLOOD COUNT 14.3 K/UL (4.8-10.8)
--- NOTE | 2019-12-23 12:58 | Surgery Progress Note ---
Surgery Progress Note Subjective Additional Comments comfortable labs noted exam stable Objective Last 24 Hour Vital Signs Date Time Temp Pulse Resp B/P (MAP) Pulse Ox O2 Delivery O2 Flow Rate FiO2 12/23/19 11:45 96.4 78 11 142/67 (92) 100 12/23/19 09:00 Nasal Cannula 2.0 12/23/19 08:57 97 135/73 12/23/19 08:00 97.7 97 13 135/73 (93) 99 12/23/19 04:00 97.8 100 18 115/62 (79) 98 12/23/19 00:00 98.2 103 17 107/57 (74) 98 12/22/19 21:00 Nasal Cannula 2.0 12/22/19 20:48 102 111/66 12/22/19 20:00 98.1 102 18 111/66 (81) 97 12/22/19 16:00 97.5 104 20 144/72 (96) 96 I&O Intake and Output 12/22/19 12/23/19 19:00 07:00 Intake Total 783.708 ml 983.708 ml Output Total 0 ml Balance 783.708 ml 983.708 ml Free Water 120 ml IV Total 183.708 ml 983.708 ml Tube Feeding 480 ml Output Hemodialysis UF 0 ml Dressing: saturated Wound: clean Cardiovascular: RSR Respiratory: clear, decreased breath sounds Abdomen: soft, non-tender, present bowel sounds Extremities: no tenderness, no cyanosis Laboratory Tests Test 12/23/19 05:40 12/23/19 12:09 White Blood Count 12.9 K/UL (4.8-10.8) H 14.3 K/UL (4.8-10.8) H Red Blood Count 2.42 M/UL (4.20-5.40) L 2.92 M/UL (4.20-5.40) L Hemoglobin 6.9 G/DL (12.0-16.0) *L 8.2 G/DL (12.0-16.0) L Hematocrit 21.9 % (37.0-47.0) L 26.7 % (37.0-47.0) L Mean Corpuscular Volume 90 FL (80-99) 92 FL (80-99) Mean Corpuscular Hemoglobin 28.5 PG (27.0-31.0) 28.1 PG (27.0-31.0) Mean Corpuscular Hemoglobin Concent 31.5 G/DL (32.0-36.0) L 30.7 G/DL (32.0-36.0) L Red Cell Distribution Width 15.2 % (11.6-14.8) H 15.3 % (11.6-14.8) H Platelet Count 233 K/UL (150-450) 260 K/UL (150-450) Mean Platelet Volume 6.6 FL (6.5-10.1) 6.3 FL (6.5-10.1) L Neutrophils (%) (Auto) % (45.0-75.0) 74.6 % (45.0-75.0) Lymphocytes (%) (Auto) % (20.0-45.0) 18.6 % (20.0-45.0) L Monocytes (%) (Auto) % (1.0-10.0) 6.1 % (1.0-10.0) Eosinophils (%) (Auto) % (0.0-3.0) 0.3 % (0.0-3.0) Basophils (%) (Auto) % (0.0-2.0) 0.5 % (0.0-2.0) Differential Total Cells Counted 100 Neutrophils % (Manual) 86 % (45-75) H Lymphocytes % (Manual) 10 % (20-45) L Monocytes % (Manual) 4 % (1-10) Eosinophils % (Manual) 0 % (0-3) Basophils % (Manual) 0 % (0-2) Band Neutrophils 0 % (0-8) Platelet Estimate Adequate Platelet Morphology Normal Hypochromasia 4+ Anisocytosis 1+ Sodium Level 139 MMOL/L (136-145) Potassium Level 3.9 MMOL/L (3.5-5.1) Chloride Level 100 MMOL/L (98-107) Carbon Dioxide Level 37 MMOL/L (21-32) H Anion Gap 2 mmol/L (5-15) L Blood Urea Nitrogen 21 mg/dL (7-18) H Creatinine 2.2 MG/DL (0.55-1.30) H Estimat Glomerular Filtration Rate 26.7 mL/min (>60) Glucose Level 199 MG/DL (74-106) H Calcium Level 8.6 MG/DL (8.5-10.1) Total Bilirubin 0.4 MG/DL (0.2-1.0) Aspartate Amino Transf (AST/SGOT) 52 U/L (15-37) H Alanine Aminotransferase (ALT/SGPT) 62 U/L (12-78) Alkaline Phosphatase 107 U/L (46-116) Total Protein 5.8 G/DL (6.4-8.2) L Albumin 1.3 G/DL (3.4-5.0) L Globulin 4.5 g/dL Albumin/Globulin Ratio 0.3 (1.0-2.7) L Plan Problems: (1) Sacral decubitus ulcer, stage IV Assessment & Plan: 74-year-old female with large DTI prior necrotic tissue significant requiring debridement status post excisional debridement identifying nonviable tissue down to coccyx and sacrum. Patient is been doing well and recovering the nursing facility with good local care. She now presents still has a large open wound which was goal to have complete granulation potential closure and coverage at some point. Unfortunately given her nutritional status and decreased oral intake she is deteriorated somewhat does have some necrotic edges and slough noted in the wound bed. There is some granulation tissue approximately 6070% with some backbleeding as well. Currently no nausea vomiting fever chills. Labs noted. Albumin low. BMI low. Poor nutritional status. At this time would recommend PEG tube placement and initiation of tube feeds along with oral intake for gratification. Patient needs nutritional optimization for her wounds and her overall care plan. We will follow with recommendations Pt presented on admission with multiple Pressure injuries. Full thickness stage 4Sacral Pressure injury with undermined borders(L)12.5cm x (W)13.5cm, Undermining clockwise 2-5 by 2.5cm @3o'clock, Undermining Clockwise 10-12 by 2.6cm@10o'clock. Scattered slough ,10% necrotic at base. Bone is palpable. Undermined borders clockwise 9-3o'clock is indurated and necrotic. Surrounding perimeter of wound is indurated, purpuric and red tinged. At apex of wound along borders is an area of necrosis from 11-3o'clock.Wound is malodorous. Small amt taylor coloured exudate noted. At R Sacrum, in close proximity to above Sacral wound is a DTPI(L)6cm x (W)3cm. Base of pressure injury is purpuric with linear area of blood filled blister. Marginal erythema along borders.Marginal erythema along borders. At R Iliac is and area of hyperpigmentation with DTPI evolving along L aspect of borders of hyperpigmented area(L)2cm x ((W)2.2cm. DTPI L Ischium(L)6cm x (W)6.5cm. Base of wound is indurated, purpuric with surrounding non-blanching erythema. Scattered area of hypopigmentation noted to most medial aspect of L Ischium and perineum. Unstageable Pressure injury R Heel. Stable dry eschar noted. (L)2cm x (W)3.4cm. Periwound R Heel is blanchable but boggy. DTPI Medial L Heel(L)3cm x (W)4cm. Base of wound is maroon and indurated. Unstageable Pressure injury L lateral Malleolus(L)3cm x (W)3cm. 100% Dry brown/ black eschar noted at base of wound. DTPI R Lateral Malleolus(L)0.5cm x (W)2cm. Base of wound is indurated purpuric with marginal erythema along borders. Tx.Plan: Cleanse Sacral wound with Dakin's 0.125% Adwoa. Loosely pack sacral wound with Dakin's moistened KERLIX. Apply Moisture Barrier Paste along borders. Cover with Optifoam drsg DAILY and PRN Apply Cavilon Skin Barrier to R Iliac. R sacrum,L Ischium. Cover each site with Optifoam drsgs. Change every 3 days and prn. Apply Betadine to Malleoli and both heels. Cover each site with Optifoam Drsgs. Change every 3days and prn. Reposition at least every 2hours or as tolerated. Place pillow between knees. Off-load heels with pillows. Air fluidized Mattress. (2) Severe malnutrition Assessment & Plan: s/p peg tf as tolerated DAILY ESTIMATED NEEDS: Needs based on Renal, HD, wound, 45.5kg 30-40 kcals/kg 8114-2595 total kcals 1.25-2 g protein/kg 57-91 g total protein Fluid per MD, on HD NUTRITION DIAGNOSIS: Increased kcal/prot intake needs R/T renal dysfunction, underweight status, wound healing as evidenced by ESRD dx, on HD, pt is 73% of [place] Body Weight w/ recent sacral stage 4 wound, s/p surgical debridement, pt os now s/p PEG placement. CURRENT DIET:NPO PO DIET RECOMMENDATIONS: liberalized regular diet/ texture as tolerated or per [employer] for oral grat ENTERAL NUTRITION RECOMMENDATIONS: Nepro w/ goal of 40ml/hr x24 hrs to provide 960ml, 1728 kcal, 78g pro, 698ml free H2O - As medically able w/ GI access, start Nepro @20ml/hr for 6 hrs, advance 5ml/hr q4 hrs to goal. - Flush per MD, on HD - HOB over 30 degrees ADDITIONAL RECOMMENDATIONS: * TF recs as above * [employer] if appropriate for oral grat * Wound healing: SIS BID + Nephrovite qdaily Vit C 250 mg BID (or per nephro), ZnSO4 220mg qd (or per Nephro) * Maintain calibrated bed scale wts; 45.5kg on calibrated bed (12/16) (3) Dementia (4) Leukocytosis (5) Weakness (6) ESRD (end stage renal disease) (7) Hypertensive nephrosclerosis (8) Anemia in chronic kidney disease (9) CVA, old, cognitive deficits (10) Deep tissue injury (11) acute toxic encephalopathy Jesse Quinn Dec 23, 2019 12:58
--- NOTE | 2019-12-23 13:00 | NUR ---
NURSE NOTES: patient's right hand IV access has been discontinued as it presented leakage and also edema on the site of access. Nurse tried 4x IV access on right upper extremity as patient has left arm precautions due to left AV shunt. DIPTI [place] and powerhouse tender [place] notified, will get ICU nurse to help establish IV access.
--- NOTE | 2019-12-23 13:13 | Infectious Diseases Prog Note ---
Assessment/Plan Assessment/Plan A; Sacrococcyx osteomyelitis Sacral pressure ulcer ESRD Dementia Fecal impaction Gastrostomy status P: Continue Vancomycin Will f/u cultures Wound care Subjective ROS Limited/Unobtainable: Yes Constitutional: Denies: fever Allergies: Coded Allergies: No Known Allergies (Unverified , 02/27/19) Objective Last 24 Hour Vital Signs Date Time Temp Pulse Resp B/P (MAP) Pulse Ox O2 Delivery O2 Flow Rate FiO2 12/23/19 11:45 96.4 78 11 142/67 (92) 100 12/23/19 09:00 Nasal Cannula 2.0 12/23/19 08:57 97 135/73 12/23/19 08:00 97.7 97 13 135/73 (93) 99 12/23/19 04:00 97.8 100 18 115/62 (79) 98 12/23/19 00:00 98.2 103 17 107/57 (74) 98 12/22/19 21:00 Nasal Cannula 2.0 12/22/19 20:48 102 111/66 12/22/19 20:00 98.1 102 18 111/66 (81) 97 12/22/19 16:00 97.5 104 20 144/72 (96) 96 Height (Feet): 5 Height (Inches): 5.00 Weight (Pounds): 114 General Appearance: no acute distress HEENT: mucous membranes moist Respiratory/Chest: lungs clear, other - oxygen by nasal cannula Cardiovascular: normal rate Abdomen: soft, non tender, other - GT feeding Extremities: no edema Skin: ulcers, other - sacral Neurologic/Psychiatric: aphasia Microbiology Date/Time Source Procedure Growth Status 12/21/19 11:45 Sacral Drainage Gram Stain - Final Resulted 12/21/19 11:45 Wound Culture - Preliminary Gram Negative Martínez Gram Negative Bacillus 2 Resulted Laboratory Tests Test 12/23/19 05:40 12/23/19 12:09 White Blood Count 12.9 K/UL (4.8-10.8) H 14.3 K/UL (4.8-10.8) H Red Blood Count 2.42 M/UL (4.20-5.40) L 2.92 M/UL (4.20-5.40) L Hemoglobin 6.9 G/DL (12.0-16.0) *L 8.2 G/DL (12.0-16.0) L Hematocrit 21.9 % (37.0-47.0) L 26.7 % (37.0-47.0) L Mean Corpuscular Volume 90 FL (80-99) 92 FL (80-99) Mean Corpuscular Hemoglobin 28.5 PG (27.0-31.0) 28.1 PG (27.0-31.0) Mean Corpuscular Hemoglobin Concent 31.5 G/DL (32.0-36.0) L 30.7 G/DL (32.0-36.0) L Red Cell Distribution Width 15.2 % (11.6-14.8) H 15.3 % (11.6-14.8) H Platelet Count 233 K/UL (150-450) 260 K/UL (150-450) Mean Platelet Volume 6.6 FL (6.5-10.1) 6.3 FL (6.5-10.1) L Neutrophils (%) (Auto) % (45.0-75.0) 74.6 % (45.0-75.0) Lymphocytes (%) (Auto) % (20.0-45.0) 18.6 % (20.0-45.0) L Monocytes (%) (Auto) % (1.0-10.0) 6.1 % (1.0-10.0) Eosinophils (%) (Auto) % (0.0-3.0) 0.3 % (0.0-3.0) Basophils (%) (Auto) % (0.0-2.0) 0.5 % (0.0-2.0) Differential Total Cells Counted 100 Neutrophils % (Manual) 86 % (45-75) H Lymphocytes % (Manual) 10 % (20-45) L Monocytes % (Manual) 4 % (1-10) Eosinophils % (Manual) 0 % (0-3) Basophils % (Manual) 0 % (0-2) Band Neutrophils 0 % (0-8) Platelet Estimate Adequate Platelet Morphology Normal Hypochromasia 4+ Anisocytosis 1+ Sodium Level 139 MMOL/L (136-145) Potassium Level 3.9 MMOL/L (3.5-5.1) Chloride Level 100 MMOL/L (98-107) Carbon Dioxide Level 37 MMOL/L (21-32) H Anion Gap 2 mmol/L (5-15) L Blood Urea Nitrogen 21 mg/dL (7-18) H Creatinine 2.2 MG/DL (0.55-1.30) H Estimat Glomerular Filtration Rate 26.7 mL/min (>60) Glucose Level 199 MG/DL (74-106) H Calcium Level 8.6 MG/DL (8.5-10.1) Total Bilirubin 0.4 MG/DL (0.2-1.0) Aspartate Amino Transf (AST/SGOT) 52 U/L (15-37) H Alanine Aminotransferase (ALT/SGPT) 62 U/L (12-78) Alkaline Phosphatase 107 U/L (46-116) Total Protein 5.8 G/DL (6.4-8.2) L Albumin 1.3 G/DL (3.4-5.0) L Globulin 4.5 g/dL Albumin/Globulin Ratio 0.3 (1.0-2.7) L Current Medications Medications (Trade) Dose Ordered Sig/Jeanne Route PRN Reason Start Time Stop Time Status Last Admin Dose Admin Acetaminophen (Tylenol) 650 mg Q4H PRN ORAL mild pain/T>100.5 12/13/19 20:00 01/12/20 19:59 Ascorbic Acid (Vitamin C) 500 mg DAILY ORAL 12/14/19 09:00 01/13/20 08:59 12/23/19 08:57 Aspirin (ASA) 81 mg DAILY ORAL 12/14/19 09:00 01/28/20 08:59 12/23/19 08:57 Atorvastatin Calcium (Lipitor) 10 mg BEDTIME ORAL 12/18/19 21:00 03/17/20 20:59 12/22/19 21:25 Dextrose (Dextrose 50%) 25 ml Q30M PRN IV Hypoglycemia 12/21/19 13:00 03/20/20 12:59 Dextrose (Dextrose 50%) 50 ml Q30M PRN IV Hypoglycemia 12/21/19 13:00 03/20/20 12:59 Dextrose/Sodium Chloride 1,000 ml @ 100 mls/hr Q10H IV 12/22/19 21:15 01/21/20 21:14 12/23/19 08:59 Epoetin Reuben (Epoetin Reuben(ESRD on dialysis)) 6,000 unit TUE-TUE-TUE SUBQ 12/14/19 21:00 03/13/20 20:59 12/21/19 21:26 Escitalopram Oxalate (Lexapro) 10 mg DAILY ORAL 12/14/19 09:00 01/13/20 08:59 12/23/19 08:56 Fluconazole (Diflucan) 100 mg DAILY ORAL 12/21/19 13:00 12/28/19 12:59 12/23/19 08:57 Heparin Sodium (Porcine) (Heparin 5000 units/ml) 5,000 units EVERY 12 HOURS SUBQ 12/14/19 09:00 01/28/20 08:59 12/23/19 08:59 Insulin Aspart (NovoLOG) BEFORE MEALS AND HS SUBQ 12/21/19 16:30 03/20/20 16:29 12/23/19 11:53 Magnesium Hydroxide (Mom) 30 ml DAILYPRN PRN ORAL Constipation 12/13/19 20:00 01/12/20 19:59 Metoprolol Tartrate (Lopressor) 50 mg Q12HR ORAL 12/13/19 21:00 03/12/20 20:59 12/23/19 08:57 Olanzapine (ZyPREXA) 2.5 mg Q6H PRN ORAL Agitation 12/13/19 20:00 01/27/20 19:59 Ondansetron HCl (Zofran) 4 mg Q4H PRN IVP Nausea & Vomiting 12/22/19 21:15 01/21/20 21:14 12/22/19 21:25 Sodium Hypochlorite (Dakin's Quarter Strength) 1 applic QHS TOPIC 12/18/19 21:00 01/17/20 20:59 12/22/19 21:00 Vancomycin HCl ([facility] pharmacy to dose) 1 ea DAILY PRN MISC Per rx protocol 12/21/19 10:45 01/20/20 10:44 Vitamin B Complex/ Vit C/Folic Acid (Nephrovite) 1 tab DAILY ORAL 12/14/19 09:00 01/13/20 08:59 12/23/19 08:57 Zinc Sulfate (Zinc Sulfate) 220 mg DAILY ORAL 12/14/19 09:00 03/13/20 08:59 12/23/19 08:57 Jarrett Levy MD Dec 23, 2019 13:13
--- NOTE | 2019-12-23 15:05 | Nephrology Progress Note ---
Assessment/Plan Problem List: (1) ESRD (end stage renal disease) (2) Hypertensive nephrosclerosis (3) CVA, old, cognitive deficits (4) Severe malnutrition (5) Sacral decubitus ulcer, stage IV (6) adult onset diabetes Plan HD TTS PEG decubitus care, bp low-nl, dc iv, glu 200+ SS insulin, GT feed Subjective ROS Limited/Unobtainable: Yes Objective Objective Last 24 Hour Vital Signs Date Time Temp Pulse Resp B/P (MAP) Pulse Ox O2 Delivery O2 Flow Rate FiO2 12/23/19 11:45 96.4 78 11 142/67 (92) 100 12/23/19 09:00 Nasal Cannula 2.0 12/23/19 08:57 97 135/73 12/23/19 08:00 97.7 97 13 135/73 (93) 99 12/23/19 04:00 97.8 100 18 115/62 (79) 98 12/23/19 00:00 98.2 103 17 107/57 (74) 98 12/22/19 21:00 Nasal Cannula 2.0 12/22/19 20:48 102 111/66 12/22/19 20:00 98.1 102 18 111/66 (81) 97 12/22/19 16:00 97.5 104 20 144/72 (96) 96 Intake and Output 12/22/19 12/23/19 19:00 07:00 Intake Total 783.708 ml 983.708 ml Output Total 0 ml Balance 783.708 ml 983.708 ml Free Water 120 ml IV Total 183.708 ml 983.708 ml Tube Feeding 480 ml Output Hemodialysis UF 0 ml Laboratory Tests 12/23/19 05:40: White Blood Count 12.9H, Red Blood Count 2.42L, Hemoglobin 6.9*L, Hematocrit 21.9L, Mean Corpuscular Volume 90, Mean Corpuscular Hemoglobin 28.5, Mean Corpuscular Hemoglobin Concent 31.5L, Red Cell Distribution Width 15.2H, Platelet Count 233, Mean Platelet Volume 6.6, Neutrophils (%) (Auto) , Lymphocytes (%) (Auto) , Monocytes (%) (Auto) , Eosinophils (%) (Auto) , Basophils (%) (Auto) , Differential Total Cells Counted 100, Neutrophils % ( Manual) 86H, Lymphocytes % (Manual) 10L, Monocytes % (Manual) 4, Eosinophils % ( Manual) 0, Basophils % (Manual) 0, Band Neutrophils 0, Platelet Estimate Adequate, Platelet Morphology Normal, Hypochromasia 4+, Anisocytosis 1+, Sodium Level 139, Potassium Level 3.9, Chloride Level 100, Carbon Dioxide Level 37H, Anion Gap 2L, Blood Urea Nitrogen 21H, Creatinine 2.2H, Estimat Glomerular Filtration Rate 26.7, Glucose Level 199H, Calcium Level 8.6, Total Bilirubin 0.4 , Aspartate Amino Transf (AST/SGOT) 52H, Alanine Aminotransferase (ALT/SGPT) 62 , Alkaline Phosphatase 107, Total Protein 5.8L, Albumin 1.3L, Globulin 4.5, Albumin/Globulin Ratio 0.3L 12/23/19 12:09: White Blood Count 14.3H, Red Blood Count 2.92L, Hemoglobin 8.2L, Hematocrit 26.7L, Mean Corpuscular Volume 92, Mean Corpuscular Hemoglobin 28.1, Mean Corpuscular Hemoglobin Concent 30.7L, Red Cell Distribution Width 15.3H, Platelet Count 260, Mean Platelet Volume 6.3L, Neutrophils (%) (Auto) 74.6, Lymphocytes (%) (Auto) 18.6L, Monocytes (%) (Auto) 6.1, Eosinophils (%) (Auto) 0.3, Basophils (%) (Auto) 0.5 Height (Feet): 5 Height (Inches): 5.00 Weight (Pounds): 114 General Appearance: lethargic, confused Neck: normal alignment Cardiovascular: regular rhythm Respiratory/Chest: lungs clear Abdomen: normal bowel sounds, non tender, soft Neurologic: abnormal foreign agent II-XII, motor weakness, disoriented Objective large decubitus Dylon Stringer MD Dec 23, 2019 15:05
--- NOTE | 2019-12-23 16:20 | NUR ---
NURSE NOTES: changed dressing of sacral wound as per dr order. Patient is NPO and tube feeding on hold. On 2L O2/min, no sign of respiratory distress, sat 100%.
--- NOTE | 2019-12-23 19:29 | NUR ---
HAND-OFF: Report given to MICHAEL Olivares.
[2019-12-23] MEDS: Dakin's 0.125% Soln (Quarter Strength) 16oz TOPIC SCH (20:29)
--- NOTE | 2019-12-23 20:43 | NUR ---
NURSE NOTES: Patient in bed, awake, unable to make needs known. Left side weakness. No s/s of pain or discomfort noted. On nasal cannula 2 L. Sacral dressing noted, hip and heel dressing. Skin is warm and dry. Abdomen is soft. Gt noted, no feeding a the moment, residual noted 90 mls. No order to resume at the moment, will follow up. Kept clean and comfortable. Provide safe environment. Call light is at bedside. Will continue plan of care. Iv site noted, iv fluid is infusing as ordered.
--- NOTE | 2019-12-23 22:00 | NUR ---
NURSE NOTES: Medications given. GT flushed, residual 95 ml, feeding content and gastric liquid.
--- NOTE | 2019-12-23 22:15 | General Progress Note ---
Assessment/Plan Status: stable, progressing Assessment/Plan: Assessment - TF intolerance - leukocytosis - Anemia - multifactorial, but mainly due to CRF - Anorexia, malnutrition - OBS - Decubitus ulcer / osteo - azotemia - improving - s/p PEG Recommendations - follow CBC - Stat CT abd/pelvis - wound care - Continue TF - GT care - elevate HOB - Abx Subjective Allergies: Coded Allergies: No Known Allergies (Unverified , 02/27/19) Subjective Above noted TF held due to residuals WBC remains high Repeat H&H better d/w RN still with high residual Objective Last 24 Hour Vital Signs Date Time Temp Pulse Resp B/P (MAP) Pulse Ox O2 Delivery O2 Flow Rate FiO2 12/23/19 20:27 84 115/56 12/23/19 20:16 Nasal Cannula 2.0 12/23/19 20:00 98.0 84 18 115/56 (75) 96 12/23/19 16:00 97.9 83 19 128/57 (80) 100 12/23/19 11:45 96.4 78 11 142/67 (92) 100 12/23/19 09:00 Nasal Cannula 2.0 12/23/19 08:57 97 135/73 12/23/19 08:00 97.7 97 13 135/73 (93) 99 12/23/19 04:00 97.8 100 18 115/62 (79) 98 12/23/19 00:00 98.2 103 17 107/57 (74) 98 Intake and Output 12/22/19 12/23/19 19:00 07:00 Intake Total 783.708 ml 983.708 ml Output Total 0 ml Balance 783.708 ml 983.708 ml Free Water 120 ml IV Total 183.708 ml 983.708 ml Tube Feeding 480 ml Output Hemodialysis UF 0 ml Laboratory Tests 12/23/19 05:40: White Blood Count 12.9H, Red Blood Count 2.42L, Hemoglobin 6.9*L, Hematocrit 21.9L, Mean Corpuscular Volume 90, Mean Corpuscular Hemoglobin 28.5, Mean Corpuscular Hemoglobin Concent 31.5L, Red Cell Distribution Width 15.2H, Platelet Count 233, Mean Platelet Volume 6.6, Neutrophils (%) (Auto) , Lymphocytes (%) (Auto) , Monocytes (%) (Auto) , Eosinophils (%) (Auto) , Basophils (%) (Auto) , Differential Total Cells Counted 100, Neutrophils % ( Manual) 86H, Lymphocytes % (Manual) 10L, Monocytes % (Manual) 4, Eosinophils % ( Manual) 0, Basophils % (Manual) 0, Band Neutrophils 0, Platelet Estimate Adequate, Platelet Morphology Normal, Hypochromasia 4+, Anisocytosis 1+, Sodium Level 139, Potassium Level 3.9, Chloride Level 100, Carbon Dioxide Level 37H, Anion Gap 2L, Blood Urea Nitrogen 21H, Creatinine 2.2H, Estimat Glomerular Filtration Rate 26.7, Glucose Level 199H, Calcium Level 8.6, Total Bilirubin 0.4 , Aspartate Amino Transf (AST/SGOT) 52H, Alanine Aminotransferase (ALT/SGPT) 62 , Alkaline Phosphatase 107, Total Protein 5.8L, Albumin 1.3L, Globulin 4.5, Albumin/Globulin Ratio 0.3L 12/23/19 12:09: White Blood Count 14.3H, Red Blood Count 2.92L, Hemoglobin 8.2L, Hematocrit 26.7L, Mean Corpuscular Volume 92, Mean Corpuscular Hemoglobin 28.1, Mean Corpuscular Hemoglobin Concent 30.7L, Red Cell Distribution Width 15.3H, Platelet Count 260, Mean Platelet Volume 6.3L, Neutrophils (%) (Auto) 74.6, Lymphocytes (%) (Auto) 18.6L, Monocytes (%) (Auto) 6.1, Eosinophils (%) (Auto) 0.3, Basophils (%) (Auto) 0.5 12/23/19 20:21: POC Whole Blood Glucose 130H Height (Feet): 5 Height (Inches): 5.00 Weight (Pounds): 114 Objective Thin AA woman NCAT supple CTA RRR abd soft flat ND Ext no edema (+) decub ulcers OBS Willow Cee MD Dec 23, 2019 22:15
--- NOTE | 2019-12-23 22:25 | NUR ---
NURSE NOTES: Spoke with Dr. Cee, new orders received, will carry out.
--- NOTE | 2019-12-23 23:39 | Cardiology Progress Note ---
Subjective DATE OF SERVICE: Dec 22, 2019 Remains withdrawn, but alert. On anti-fungal therapy for cystitis. BP range better, but still low normal range off therapy. Clonidine patch was discontinued on 12/16. S/p uncomplicated PEG 12/17/19. No fevers/chills, N/V,D. No SOB. CT scan consistent with osteomyelitis. REVIEW OF SYSTEMS: unchanged from assessment of 12/15/19 However noted that atorvastatin dose was decreased to 10mg during last hospitalization, based on lipid panel. Objective Last 24 Hour Vital Signs Date Time Temp Pulse Resp B/P (MAP) Pulse Ox O2 Delivery O2 Flow Rate FiO2 12/23/19 20:27 84 115/56 12/23/19 20:16 Nasal Cannula 2.0 12/23/19 20:00 98.0 84 18 115/56 (75) 96 12/23/19 16:00 97.9 83 19 128/57 (80) 100 12/23/19 11:45 96.4 78 11 142/67 (92) 100 12/23/19 09:00 Nasal Cannula 2.0 12/23/19 08:57 97 135/73 12/23/19 08:00 97.7 97 13 135/73 (93) 99 12/23/19 04:00 97.8 100 18 115/62 (79) 98 12/23/19 00:00 98.2 103 17 107/57 (74) 98 HEENT: normal ENT inspection RHYTHM: ST LUNGS: lungs clear bilaterally CARDIAC: regular rhythm, normal S1 and S2, rapid rate ABDOMEN: non tender, soft, no organomegaly, distended, G-Tube intact EXTREMITIES: No edema, other - Palpable bruit over UE AV fistula Laboratory Tests Test 12/23/19 05:40 12/23/19 12:09 12/23/19 20:21 White Blood Count 12.9 K/UL (4.8-10.8) H 14.3 K/UL (4.8-10.8) H Red Blood Count 2.42 M/UL (4.20-5.40) L 2.92 M/UL (4.20-5.40) L Hemoglobin 6.9 G/DL (12.0-16.0) *L 8.2 G/DL (12.0-16.0) L Hematocrit 21.9 % (37.0-47.0) L 26.7 % (37.0-47.0) L Mean Corpuscular Volume 90 FL (80-99) 92 FL (80-99) Mean Corpuscular Hemoglobin 28.5 PG (27.0-31.0) 28.1 PG (27.0-31.0) Mean Corpuscular Hemoglobin Concent 31.5 G/DL (32.0-36.0) L 30.7 G/DL (32.0-36.0) L Red Cell Distribution Width 15.2 % (11.6-14.8) H 15.3 % (11.6-14.8) H Platelet Count 233 K/UL (150-450) 260 K/UL (150-450) Mean Platelet Volume 6.6 FL (6.5-10.1) 6.3 FL (6.5-10.1) L Neutrophils (%) (Auto) % (45.0-75.0) 74.6 % (45.0-75.0) Lymphocytes (%) (Auto) % (20.0-45.0) 18.6 % (20.0-45.0) L Monocytes (%) (Auto) % (1.0-10.0) 6.1 % (1.0-10.0) Eosinophils (%) (Auto) % (0.0-3.0) 0.3 % (0.0-3.0) Basophils (%) (Auto) % (0.0-2.0) 0.5 % (0.0-2.0) Differential Total Cells Counted 100 Neutrophils % (Manual) 86 % (45-75) H Lymphocytes % (Manual) 10 % (20-45) L Monocytes % (Manual) 4 % (1-10) Eosinophils % (Manual) 0 % (0-3) Basophils % (Manual) 0 % (0-2) Band Neutrophils 0 % (0-8) Platelet Estimate Adequate Platelet Morphology Normal Hypochromasia 4+ Anisocytosis 1+ Sodium Level 139 MMOL/L (136-145) Potassium Level 3.9 MMOL/L (3.5-5.1) Chloride Level 100 MMOL/L (98-107) Carbon Dioxide Level 37 MMOL/L (21-32) H Anion Gap 2 mmol/L (5-15) L Blood Urea Nitrogen 21 mg/dL (7-18) H Creatinine 2.2 MG/DL (0.55-1.30) H Estimat Glomerular Filtration Rate 26.7 mL/min (>60) Glucose Level 199 MG/DL (74-106) H Calcium Level 8.6 MG/DL (8.5-10.1) Total Bilirubin 0.4 MG/DL (0.2-1.0) Aspartate Amino Transf (AST/SGOT) 52 U/L (15-37) H Alanine Aminotransferase (ALT/SGPT) 62 U/L (12-78) Alkaline Phosphatase 107 U/L (46-116) Total Protein 5.8 G/DL (6.4-8.2) L Albumin 1.3 G/DL (3.4-5.0) L Globulin 4.5 g/dL Albumin/Globulin Ratio 0.3 (1.0-2.7) L POC Whole Blood Glucose 130 MG/DL (74-106) H Microbiology Date/Time Source Procedure Growth Status 12/21/19 11:45 Sacral Drainage Gram Stain - Final Resulted 12/21/19 11:45 Wound Culture - Preliminary Gram Negative Martínez Gram Negative Bacillus 2 Resulted Assessment/Plan Assessment/Plan Severe protein/calorie malnutrition Anemia of CKD ESRD Dysphagia Hx CVA with dementia Metabolic encephalopathy Sinus tachycardia Hypertension/HHD Chronic diastolic CHF Sacral wound - s/p debridement Severe sepsis Dehydration/hypovolemia corrected HD/UF Free water replacement as needed DVT prophylaxis Antimicrobials Bulmaro Hester MD Dec 23, 2019 23:39
--- NOTE | 2019-12-23 23:45 | Cardiology Progress Note ---
Subjective DATE OF SERVICE: Dec 23, 2019 Remains withdrawn, but alert. On anti-fungal therapy for cystitis. BP range better, but still low normal range off therapy. Clonidine patch was discontinued on 12/16. S/p uncomplicated PEG 12/17/19. No fevers/chills, N/V,D. No SOB. CT scan consistent with osteomyelitis. REVIEW OF SYSTEMS: unchanged from assessment of 12/15/19 However noted that atorvastatin dose was decreased to 10mg during last hospitalization, based on lipid panel. Objective Last 24 Hour Vital Signs Date Time Temp Pulse Resp B/P (MAP) Pulse Ox O2 Delivery O2 Flow Rate FiO2 12/23/19 20:27 84 115/56 12/23/19 20:16 Nasal Cannula 2.0 12/23/19 20:00 98.0 84 18 115/56 (75) 96 12/23/19 16:00 97.9 83 19 128/57 (80) 100 12/23/19 11:45 96.4 78 11 142/67 (92) 100 12/23/19 09:00 Nasal Cannula 2.0 12/23/19 08:57 97 135/73 12/23/19 08:00 97.7 97 13 135/73 (93) 99 12/23/19 04:00 97.8 100 18 115/62 (79) 98 12/23/19 00:00 98.2 103 17 107/57 (74) 98 HEENT: normal ENT inspection RHYTHM: ST LUNGS: lungs clear bilaterally CARDIAC: regular rhythm, normal S1 and S2, rapid rate ABDOMEN: non tender, soft, no organomegaly, distended, G-Tube intact EXTREMITIES: No edema, other - Palpable bruit over UE AV fistula Laboratory Tests Test 12/23/19 05:40 12/23/19 12:09 12/23/19 20:21 White Blood Count 12.9 K/UL (4.8-10.8) H 14.3 K/UL (4.8-10.8) H Red Blood Count 2.42 M/UL (4.20-5.40) L 2.92 M/UL (4.20-5.40) L Hemoglobin 6.9 G/DL (12.0-16.0) *L 8.2 G/DL (12.0-16.0) L Hematocrit 21.9 % (37.0-47.0) L 26.7 % (37.0-47.0) L Mean Corpuscular Volume 90 FL (80-99) 92 FL (80-99) Mean Corpuscular Hemoglobin 28.5 PG (27.0-31.0) 28.1 PG (27.0-31.0) Mean Corpuscular Hemoglobin Concent 31.5 G/DL (32.0-36.0) L 30.7 G/DL (32.0-36.0) L Red Cell Distribution Width 15.2 % (11.6-14.8) H 15.3 % (11.6-14.8) H Platelet Count 233 K/UL (150-450) 260 K/UL (150-450) Mean Platelet Volume 6.6 FL (6.5-10.1) 6.3 FL (6.5-10.1) L Neutrophils (%) (Auto) % (45.0-75.0) 74.6 % (45.0-75.0) Lymphocytes (%) (Auto) % (20.0-45.0) 18.6 % (20.0-45.0) L Monocytes (%) (Auto) % (1.0-10.0) 6.1 % (1.0-10.0) Eosinophils (%) (Auto) % (0.0-3.0) 0.3 % (0.0-3.0) Basophils (%) (Auto) % (0.0-2.0) 0.5 % (0.0-2.0) Differential Total Cells Counted 100 Neutrophils % (Manual) 86 % (45-75) H Lymphocytes % (Manual) 10 % (20-45) L Monocytes % (Manual) 4 % (1-10) Eosinophils % (Manual) 0 % (0-3) Basophils % (Manual) 0 % (0-2) Band Neutrophils 0 % (0-8) Platelet Estimate Adequate Platelet Morphology Normal Hypochromasia 4+ Anisocytosis 1+ Sodium Level 139 MMOL/L (136-145) Potassium Level 3.9 MMOL/L (3.5-5.1) Chloride Level 100 MMOL/L (98-107) Carbon Dioxide Level 37 MMOL/L (21-32) H Anion Gap 2 mmol/L (5-15) L Blood Urea Nitrogen 21 mg/dL (7-18) H Creatinine 2.2 MG/DL (0.55-1.30) H Estimat Glomerular Filtration Rate 26.7 mL/min (>60) Glucose Level 199 MG/DL (74-106) H Calcium Level 8.6 MG/DL (8.5-10.1) Total Bilirubin 0.4 MG/DL (0.2-1.0) Aspartate Amino Transf (AST/SGOT) 52 U/L (15-37) H Alanine Aminotransferase (ALT/SGPT) 62 U/L (12-78) Alkaline Phosphatase 107 U/L (46-116) Total Protein 5.8 G/DL (6.4-8.2) L Albumin 1.3 G/DL (3.4-5.0) L Globulin 4.5 g/dL Albumin/Globulin Ratio 0.3 (1.0-2.7) L POC Whole Blood Glucose 130 MG/DL (74-106) H Microbiology Date/Time Source Procedure Growth Status 12/21/19 11:45 Sacral Drainage Gram Stain - Final Resulted 12/21/19 11:45 Wound Culture - Preliminary Gram Negative Martínez Gram Negative Bacillus 2 Resulted Assessment/Plan Assessment/Plan Severe protein/calorie malnutrition Anemia of CKD ESRD Dysphagia Hx CVA with dementia Metabolic encephalopathy Sinus tachycardia Hypertension/HHD Chronic diastolic CHF Sacral wound - s/p debridement Severe sepsis Dehydration/hypovolemia corrected fungal cystitis Osteomyelitis Persisting leukocytosis Increased risk for endocarditis HD/UF Free water replacement as needed DVT prophylaxis Antimicrobials per ID Recheck 2D Echo Bulmaro Hester MD Dec 23, 2019 23:45
[2019-12-24] VITALS (7 sets, daily range): BP systolic 106–126; BP diastolic 47–69
--- NOTE | 2019-12-24 02:09 | Diagnostic Imaging Report ---
EXAM: CT Abdomen and Pelvis Without Intravenous Contrast CLINICAL HISTORY: ABN LABS TECHNIQUE: Axial computed tomography images of the abdomen and pelvis without intravenous contrast. CTDI is 8.0 mGy and DLP is 389.2 mGy-cm. One or more of the following dose reduction techniques were used: automated exposure control, adjustment of the mA and/or kV according to patient size, use of iterative reconstruction technique. COMPARISON: None. FINDINGS: Limitations: Exam is overall limited due to minimal amount of fat which makes distinction of structures difficult. Lung bases: Lung bases not entirely included in the [id number]. Heart: Borderline cardiomegaly. ABDOMEN: Liver: Unremarkable. Gallbladder and bile ducts: Over distention of the gallbladder with small stones. No ductal dilation. Pancreas: Unremarkable. No ductal dilation. Spleen: Unremarkable. No splenomegaly. Adrenals: Unremarkable. No mass. Kidneys and ureters: Subtle calcifications within the renal sinuses bilaterally which may represent vascular origin or tiny stones. Left middle renal pole low-attenuation structure most compatible with a cyst otherwise suboptimally characterized and measuring approximately 8 mm. No hydronephrosis. Stomach and bowel: Unremarkable small bowel. Contrast within the colon. There is thickening of the wall at the level of the distal sigmoid and rectosigmoid junction consistent with inflammatory process or distal colitis. No obstruction. PELVIS: Appendix: No findings to suggest acute appendicitis. Bladder: Unremarkable. No stones. Reproductive: The uterus is not well seen with suggestion of a uterine fibroid in the right posterior pelvis measuring 5.4 x 5.2 cm with internal calcifications. ABDOMEN and PELVIS: Intraperitoneal space: Unremarkable. No free air. No significant fluid collection. Bones/joints: Diffuse osteopenia along with multilevel degenerative disease seen. No acute fracture. No dislocation. Soft tissues: Questionable diffuse fluid infiltration which may indicate anasarca. Vasculature: See above. Lymph nodes: Unremarkable. No enlarged lymph nodes. Tubes, lines and devices: Suboptimally seen stomach. The stomach is decompressed. Gastrostomy tube in place. IMPRESSION: 1. Significant inflammatory changes to the distal sigmoid and rectum concerning for distal colitis. Possible thickening or inflammation at the level of the anus. 2. Uterine fibroid as described. 3. No bowel obstruction. 4. Gallstones.
[2019-12-24] MEDS: NovoLOG Insulin Flexpen SUBQ SCH ×4 (06:30→21:00)
[2019-12-24 06:39] LABS: HEMATOCRIT 22.4 % (37.0-47.0); MEAN CORPUSCULAR VOLUME 92 FL (80-99); PLATELET COUNT 234 K/UL (150-450); RED BLOOD COUNT 2.43 M/UL (4.20-5.40); RED CELL DISTRIBUTION WIDTH 15.3 % (11.6-14.8); WHITE BLOOD COUNT 12.6 K/UL (4.8-10.8)
--- NOTE | 2019-12-24 06:55 | NUR ---
HAND-OFF: Report given to Ami Person.
[2019-12-24 07:05] LABS: HEMOGLOBIN 6.9 G/DL (12.0-16.0)
[2019-12-24 07:18] LABS: ALANINE AMINOTRANSFERASE 36 U/L (12-78); ALBUMIN 1.4 G/DL (3.4-5.0); ALBUMIN/GLOBULIN RATIO 0.3 (1.0-2.7); ALKALINE PHOSPHATASE 110 U/L (46-116); ANION GAP 5 mmol/L (5-15); ASPARTATE AMINO TRANSFERASE 32 U/L (15-37); BILIRUBIN,TOTAL 0.4 MG/DL (0.2-1.0); BLOOD UREA NITROGEN 32 mg/dL (7-18); CALCIUM 8.5 MG/DL (8.5-10.1); CARBON DIOXIDE 33 MMOL/L (21-32); CHLORIDE 98 MMOL/L (98-107); CREATININE 3.1 MG/DL (0.55-1.30); POTASSIUM 4.8 MMOL/L (3.5-5.1); SODIUM 135 MMOL/L (136-145)
--- NOTE | 2019-12-24 07:24 | NUR ---
NURSE NOTES: Received report of critical hemoglobin. REport given to Raza Rn
--- NOTE | 2019-12-24 07:45 | NUR ---
NURSE NOTES: received patient in bed, asleep, no sign of respiratory distress on 2L O2/min. GT feeding on hold, patient on low intermittent suction, no output noted. Patient receives IVF though RFA IV access, no sign of infiltration or leakage noted. DAVID AV shunt, thrill present. On Fall precautions, yellow gown, socks and sign at the door besides on physical chart. Current hg 6.9, dr Quevedo notified. Patient on low pressure mattress and heels floating, pillows on lower legs. Bed locked at the lowest position possible, call light within easy reach, siderails up x3. Will continue to monitor patient and follow up with the plan of care.
--- NOTE | 2019-12-24 08:30 | General Progress Note ---
Assessment/Plan Problem List: (1) Dementia ICD Codes: F03.90 - Unspecified dementia without behavioral disturbance SNOMED: 69205423 (2) Weakness ICD Codes: R53.1 - Weakness SNOMED: 06883592 (3) ESRD (end stage renal disease) ICD Codes: N18.6 - End stage renal disease SNOMED: 77311796 (4) Hypertensive nephrosclerosis ICD Codes: I12.9 - Hypertensive chronic kidney disease with stage 1 through stage 4 chronic kidney disease, or unspecified chronic kidney disease SNOMED: 277268234 (5) CVA, old, cognitive deficits ICD Codes: I69.319 - Unspecified symptoms and signs involving cognitive functions following cerebral infarction SNOMED: 84386924, 630765013, 299398928, 684961333 (6) Deep tissue injury ICD Codes: T14.8XXA - Other injury of unspecified body region, initial encounter SNOMED: 291990138 (7) acute toxic encephalopathy (8) Severe malnutrition ICD Codes: E43 - Unspecified severe protein-calorie malnutrition SNOMED: 36096854 (9) Sacral decubitus ulcer, stage IV ICD Codes: L89.154 - Pressure ulcer of sacral region, stage 4 SNOMED: 965316100, 207798028 Status: stable, progressing Assessment/Plan: feeds on hold per GI antiemetics CT scan pending abx per ID wound care BP rx as needed repeat cbc transfuse as needed PPI rx monitor for bleeding/melena/BRBPR Subjective Date patient seen: Dec 23, 2019 ROS Limited/Unobtainable: Yes Constitutional: Reports: malaise, weakness HEENT: Reports: no symptoms Cardiovascular: Reports: no symptoms Respiratory: Reports: no symptoms Gastrointestinal/Abdominal: Reports: difficulty swallowing, poor appetite, poor fluid intake, vomiting Genitourinary: Reports: no symptoms Neurologic/Psychiatric: Reports: pre-existing deficit Endocrine: Reports: no symptoms Hematologic/Lymphatic: Reports: anemia Allergies: Coded Allergies: No Known Allergies (Unverified , 02/27/19) All Systems: reviewed and negative except above Subjective no tolerating feeds. vomited x 3 last night. no fever or chills. no sob. awake but withdrawn and confused. getting wound. no reports of bleeding. Objective Last 24 Hour Vital Signs Date Time Temp Pulse Resp B/P (MAP) Pulse Ox O2 Delivery O2 Flow Rate FiO2 8/3/20 04:00 98.6 90 20 124/59 (80) 100 12/24/19 00:00 98.1 88 18 122/63 (82) 97 12/23/19 20:27 84 115/56 12/23/19 20:16 Nasal Cannula 2.0 12/23/19 20:00 98.0 84 18 115/56 (75) 96 12/23/19 16:00 97.9 83 19 128/57 (80) 100 12/23/19 11:45 96.4 78 11 142/67 (92) 100 12/23/19 09:00 Nasal Cannula 2.0 12/23/19 08:57 97 135/73 Intake and Output 12/23/19 12/24/19 19:00 07:00 Intake Total 360 ml 140 ml Balance 360 ml 140 ml Free Water 50 ml IV Total 360 ml 90 ml Laboratory Tests 12/23/19 12:09: White Blood Count 14.3H, Red Blood Count 2.92L, Hemoglobin 8.2L, Hematocrit 26.7L, Mean Corpuscular Volume 92, Mean Corpuscular Hemoglobin 28.1, Mean Corpuscular Hemoglobin Concent 30.7L, Red Cell Distribution Width 15.3H, Platelet Count 260, Mean Platelet Volume 6.3L, Neutrophils (%) (Auto) 74.6, Lymphocytes (%) (Auto) 18.6L, Monocytes (%) (Auto) 6.1, Eosinophils (%) (Auto) 0.3, Basophils (%) (Auto) 0.5 12/23/19 20:21: POC Whole Blood Glucose 130H 12/24/19 05:25: White Blood Count 12.6H, Red Blood Count 2.43L, Hemoglobin 6.9*L, Hematocrit 22.4L, Mean Corpuscular Volume 92, Mean Corpuscular Hemoglobin 28.4, Mean Corpuscular Hemoglobin Concent 30.8L, Red Cell Distribution Width 15.3H, Platelet Count 234, Mean Platelet Volume 6.9, Neutrophils (%) (Auto) , Lymphocytes (%) (Auto) , Monocytes (%) (Auto) , Eosinophils (%) (Auto) , Basophils (%) (Auto) , Neutrophils % (Manual) [Pending], Lymphocytes % (Manual) [Pending], Platelet Estimate [Pending], Platelet Morphology [Pending], Sodium Level 135L, Potassium Level 4.8, Chloride Level 98, Carbon Dioxide Level 33H, Anion Gap 5, Blood Urea Nitrogen 32H, Creatinine 3.1H, Estimat Glomerular Filtration Rate 17.9, Glucose Level 117H, Calcium Level 8.5, Total Bilirubin 0.4 , Aspartate Amino Transf (AST/SGOT) 32, Alanine Aminotransferase (ALT/SGPT) 36, Alkaline Phosphatase 110, Total Protein 5.9L, Albumin 1.4L, Globulin 4.5, Albumin/Globulin Ratio 0.3L Height (Feet): 5 Height (Inches): 5.00 Weight (Pounds): 114 Objective General Appearance: WD/WN, lethargic, confused EENT: PERRL/EOMI Neck: non-tender, normal alignment, supple Cardiovascular: normal peripheral pulses, normal rate, regular rhythm Respiratory/Chest: chest wall non-tender, lungs clear, normal breath sounds Abdomen: normal bowel sounds, non tender, soft, no organomegaly, no mass Edema: no edema noted Arm (L), no edema noted Arm (R) 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
--- NOTE | 2019-12-24 08:34 | General Progress Note ---
Assessment/Plan Problem List: (1) Dementia ICD Codes: F03.90 - Unspecified dementia without behavioral disturbance SNOMED: 52328626 (2) Weakness ICD Codes: R53.1 - Weakness SNOMED: 54425166 (3) ESRD (end stage renal disease) ICD Codes: N18.6 - End stage renal disease SNOMED: 60637774 (4) Hypertensive nephrosclerosis ICD Codes: I12.9 - Hypertensive chronic kidney disease with stage 1 through stage 4 chronic kidney disease, or unspecified chronic kidney disease SNOMED: 439474401 (5) CVA, old, cognitive deficits ICD Codes: I69.319 - Unspecified symptoms and signs involving cognitive functions following cerebral infarction SNOMED: 55351015, 564213445, 590506780, 942855394 (6) Deep tissue injury ICD Codes: T14.8XXA - Other injury of unspecified body region, initial encounter SNOMED: 117872225 (7) acute toxic encephalopathy (8) Severe malnutrition ICD Codes: E43 - Unspecified severe protein-calorie malnutrition SNOMED: 95030825 (9) Sacral decubitus ulcer, stage IV ICD Codes: L89.154 - Pressure ulcer of sacral region, stage 4 SNOMED: 600008832, 376372707 Status: stable, progressing Assessment/Plan: feeds on hold per GI antiemetics CT scan pending abx per ID wound care BP rx as needed repeat cbc transfuse as needed PPI rx monitor for bleeding/melena/BRBPR Subjective ROS Limited/Unobtainable: Yes Constitutional: Reports: malaise, weakness HEENT: Reports: no symptoms Cardiovascular: Reports: no symptoms Respiratory: Reports: no symptoms Gastrointestinal/Abdominal: Reports: vomiting Genitourinary: Reports: no symptoms Neurologic/Psychiatric: Reports: pre-existing deficit Endocrine: Reports: no symptoms Hematologic/Lymphatic: Reports: anemia Allergies: Coded Allergies: No Known Allergies (Unverified , 02/27/19) All Systems: reviewed and negative except above Subjective cont current rx check cdiff feeds on hold per GI recs transfuse prbcs HD per renal wound care turn every 2 hrs surgery follow up for wound care IV abx for 6 weeks for osteo Objective Last 24 Hour Vital Signs Date Time Temp Pulse Resp B/P (MAP) Pulse Ox O2 Delivery O2 Flow Rate FiO2 12/24/19 04:00 98.6 90 20 124/59 (80) 100 12/24/19 00:00 98.1 88 18 122/63 (82) 97 12/23/19 20:27 84 115/56 12/23/19 20:16 Nasal Cannula 2.0 12/23/19 20:00 98.0 84 18 115/56 (75) 96 12/23/19 16:00 97.9 83 19 128/57 (80) 100 12/23/19 11:45 96.4 78 11 142/67 (92) 100 12/23/19 09:00 Nasal Cannula 2.0 12/23/19 08:57 97 135/73 Intake and Output 12/23/19 12/24/19 19:00 07:00 Intake Total 360 ml 140 ml Balance 360 ml 140 ml Free Water 50 ml IV Total 360 ml 90 ml Laboratory Tests 12/23/19 12:09: White Blood Count 14.3H, Red Blood Count 2.92L, Hemoglobin 8.2L, Hematocrit 26.7L, Mean Corpuscular Volume 92, Mean Corpuscular Hemoglobin 28.1, Mean Corpuscular Hemoglobin Concent 30.7L, Red Cell Distribution Width 15.3H, Platelet Count 260, Mean Platelet Volume 6.3L, Neutrophils (%) (Auto) 74.6, Lymphocytes (%) (Auto) 18.6L, Monocytes (%) (Auto) 6.1, Eosinophils (%) (Auto) 0.3, Basophils (%) (Auto) 0.5 12/23/19 20:21: POC Whole Blood Glucose 130H 12/24/19 05:25: White Blood Count 12.6H, Red Blood Count 2.43L, Hemoglobin 6.9*L, Hematocrit 22.4L, Mean Corpuscular Volume 92, Mean Corpuscular Hemoglobin 28.4, Mean Corpuscular Hemoglobin Concent 30.8L, Red Cell Distribution Width 15.3H, Platelet Count 234, Mean Platelet Volume 6.9, Neutrophils (%) (Auto) , Lymphocytes (%) (Auto) , Monocytes (%) (Auto) , Eosinophils (%) (Auto) , Basophils (%) (Auto) , Neutrophils % (Manual) [Pending], Lymphocytes % (Manual) [Pending], Platelet Estimate [Pending], Platelet Morphology [Pending], Sodium Level 135L, Potassium Level 4.8, Chloride Level 98, Carbon Dioxide Level 33H, Anion Gap 5, Blood Urea Nitrogen 32H, Creatinine 3.1H, Estimat Glomerular Filtration Rate 17.9, Glucose Level 117H, Calcium Level 8.5, Total Bilirubin 0.4 , Aspartate Amino Transf (AST/SGOT) 32, Alanine Aminotransferase (ALT/SGPT) 36, Alkaline Phosphatase 110, Total Protein 5.9L, Albumin 1.4L, Globulin 4.5, Albumin/Globulin Ratio 0.3L Height (Feet): 5 Height (Inches): 5.00 Weight (Pounds): 114 Objective General Appearance: WD/WN, lethargic, confused EENT: PERRL/EOMI Neck: non-tender, normal alignment, supple Cardiovascular: normal peripheral pulses, normal rate, regular rhythm Respiratory/Chest: chest wall non-tender, lungs clear, normal breath sounds Abdomen: normal bowel sounds, non tender, soft, no organomegaly, no mass Edema: no edema noted Arm (L), no edema noted Arm (R) 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
[2019-12-24] MEDS: Aspirin Baby 81mg ORAL SCH (09:11)
[2019-12-24] MEDS: Zinc Sulfate 220mg ORAL SCH (09:11)
[2019-12-24] MEDS: Ascorbic Acid 500mg tab ORAL SCH (09:12)
[2019-12-24] MEDS: Fluconazole 100mg tab ORAL SCH (09:12)
[2019-12-24] MEDS: Nephrovite tab (Rena-Vite) ORAL SCH (09:12)
[2019-12-24] MEDS: Metoprolol Tartrate 50mg tab ORAL SCH ×2 (09:12→20:11)
[2019-12-24] MEDS: Heparin 5000 units/ml inj SUBQ SCH ×2 (09:16→20:12)
--- NOTE | 2019-12-24 11:00 | NUR ---
NURSE NOTES: called pt's NOK brother Jose Maria Meet at . Nurse left an SMS message with the unit telephone number for him to call back.
--- NOTE | 2019-12-24 11:09 | Infectious Diseases Prog Note ---
Assessment/Plan Assessment/Plan antibiotics ; vancomycin iv A 1. coccygeal osteomyelitis with e.coli, morganella 2. dementia 3. hypertension 4. renal failure on HD 1. d/c iv vancomycin 2. start meropenem 3. will follow up cultures Subjective ROS Limited/Unobtainable: Yes Allergies: Coded Allergies: No Known Allergies (Unverified , 02/27/19) Objective Last 24 Hour Vital Signs Date Time Temp Pulse Resp B/P (MAP) Pulse Ox O2 Delivery O2 Flow Rate FiO2 12/24/19 09:12 84 121/69 12/24/19 08:00 98.1 84 14 121/69 (86) 100 12/24/19 04:00 98.6 90 20 124/59 (80) 100 12/24/19 00:00 98.1 88 18 122/63 (82) 97 12/23/19 20:27 84 115/56 12/23/19 20:16 Nasal Cannula 2.0 12/23/19 20:00 98.0 84 18 115/56 (75) 96 12/23/19 16:00 97.9 83 19 128/57 (80) 100 12/23/19 11:45 96.4 78 11 142/67 (92) 100 Height (Feet): 5 Height (Inches): 5.00 Weight (Pounds): 114 Respiratory/Chest: lungs clear Cardiovascular: normal rate, regular rhythm, no gallop/murmur Abdomen: soft, non tender, other - GT Extremities: no edema Microbiology Date/Time Source Procedure Growth Status 12/21/19 11:45 Sacral Drainage Gram Stain - Final Complete 12/21/19 11:45 Wound Culture - Final Escherichia Coli - Esbl Morganella Morg Spp Morganii Complete Laboratory Tests Test 12/23/19 12:09 12/23/19 20:21 12/24/19 05:25 White Blood Count 14.3 K/UL (4.8-10.8) H 12.6 K/UL (4.8-10.8) H Red Blood Count 2.92 M/UL (4.20-5.40) L 2.43 M/UL (4.20-5.40) L Hemoglobin 8.2 G/DL (12.0-16.0) L 6.9 G/DL (12.0-16.0) *L Hematocrit 26.7 % (37.0-47.0) L 22.4 % (37.0-47.0) L Mean Corpuscular Volume 92 FL (80-99) 92 FL (80-99) Mean Corpuscular Hemoglobin 28.1 PG (27.0-31.0) 28.4 PG (27.0-31.0) Mean Corpuscular Hemoglobin Concent 30.7 G/DL (32.0-36.0) L 30.8 G/DL (32.0-36.0) L Red Cell Distribution Width 15.3 % (11.6-14.8) H 15.3 % (11.6-14.8) H Platelet Count 260 K/UL (150-450) 234 K/UL (150-450) Mean Platelet Volume 6.3 FL (6.5-10.1) L 6.9 FL (6.5-10.1) Neutrophils (%) (Auto) 74.6 % (45.0-75.0) % (45.0-75.0) Lymphocytes (%) (Auto) 18.6 % (20.0-45.0) L % (20.0-45.0) Monocytes (%) (Auto) 6.1 % (1.0-10.0) % (1.0-10.0) Eosinophils (%) (Auto) 0.3 % (0.0-3.0) % (0.0-3.0) Basophils (%) (Auto) 0.5 % (0.0-2.0) % (0.0-2.0) POC Whole Blood Glucose 130 MG/DL (74-106) H Differential Total Cells Counted 100 Neutrophils % (Manual) 76 % (45-75) H Lymphocytes % (Manual) 17 % (20-45) L Monocytes % (Manual) 6 % (1-10) Eosinophils % (Manual) 1 % (0-3) Basophils % (Manual) 0 % (0-2) Band Neutrophils 0 % (0-8) Platelet Estimate Adequate Platelet Morphology Normal Hypochromasia 4+ Anisocytosis 1+ Sodium Level 135 MMOL/L (136-145) L Potassium Level 4.8 MMOL/L (3.5-5.1) Chloride Level 98 MMOL/L (98-107) Carbon Dioxide Level 33 MMOL/L (21-32) H Anion Gap 5 mmol/L (5-15) Blood Urea Nitrogen 32 mg/dL (7-18) H Creatinine 3.1 MG/DL (0.55-1.30) H Estimat Glomerular Filtration Rate 17.9 mL/min (>60) Glucose Level 117 MG/DL (74-106) H Calcium Level 8.5 MG/DL (8.5-10.1) Total Bilirubin 0.4 MG/DL (0.2-1.0) Aspartate Amino Transf (AST/SGOT) 32 U/L (15-37) Alanine Aminotransferase (ALT/SGPT) 36 U/L (12-78) Alkaline Phosphatase 110 U/L (46-116) Total Protein 5.9 G/DL (6.4-8.2) L Albumin 1.4 G/DL (3.4-5.0) L Globulin 4.5 g/dL Albumin/Globulin Ratio 0.3 (1.0-2.7) L Current Medications Medications (Trade) Dose Ordered Sig/Jeanne Route PRN Reason Start Time Stop Time Status Last Admin Dose Admin Acetaminophen (Tylenol) 650 mg Q4H PRN ORAL mild pain/T>100.5 12/13/19 20:00 01/12/20 19:59 Ascorbic Acid (Vitamin C) 500 mg DAILY ORAL 12/14/19 09:00 01/13/20 08:59 12/24/19 09:12 Aspirin (ASA) 81 mg DAILY ORAL 12/14/19 09:00 01/28/20 08:59 12/24/19 09:11 Atorvastatin Calcium (Lipitor) 10 mg BEDTIME ORAL 12/18/19 21:00 03/17/20 20:59 12/23/19 20:27 Barium Sulfate (Readi-Cat 2) 450 ml NOW PRN ORAL Radiology Procedure 12/23/19 22:15 12/25/19 22:10 12/23/19 22:42 Dextrose (Dextrose 50%) 25 ml Q30M PRN IV Hypoglycemia 12/21/19 13:00 03/20/20 12:59 Dextrose (Dextrose 50%) 50 ml Q30M PRN IV Hypoglycemia 12/21/19 13:00 03/20/20 12:59 Dextrose/Sodium Chloride 1,000 ml @ 30 mls/hr Q24H IV 12/23/19 15:30 01/22/20 15:29 12/23/19 16:38 Epoetin Reuben (Epoetin Reuben(ESRD on dialysis)) 6,000 unit TUE-TUE-TUE SUBQ 12/14/19 21:00 03/13/20 20:59 12/21/19 21:26 Escitalopram Oxalate (Lexapro) 10 mg DAILY ORAL 12/14/19 09:00 01/13/20 08:59 12/24/19 09:11 Fluconazole (Diflucan) 100 mg DAILY ORAL 12/21/19 13:00 12/28/19 12:59 12/24/19 09:12 Heparin Sodium (Porcine) (Heparin 5000 units/ml) 5,000 units EVERY 12 HOURS SUBQ 12/14/19 09:00 01/28/20 08:59 12/24/19 09:16 Insulin Aspart (NovoLOG) BEFORE MEALS AND HS SUBQ 12/21/19 16:30 03/20/20 16:29 12/23/19 11:53 Magnesium Hydroxide (Mom) 30 ml DAILYPRN PRN ORAL Constipation 12/13/19 20:00 01/12/20 19:59 12/23/19 20:30 Metoprolol Tartrate (Lopressor) 50 mg Q12HR ORAL 12/13/19 21:00 03/12/20 20:59 12/24/19 09:12 Olanzapine (ZyPREXA) 2.5 mg Q6H PRN ORAL Agitation 12/13/19 20:00 01/27/20 19:59 Ondansetron HCl (Zofran) 4 mg Q4H PRN IVP Nausea & Vomiting 12/22/19 21:15 01/21/20 21:14 12/22/19 21:25 Sodium Hypochlorite (Dakin's Quarter Strength) 1 applic QHS TOPIC 12/18/19 21:00 01/17/20 20:59 12/23/19 20:29 Vancomycin HCl (Vanco pharmacy to dose) 1 ea DAILY PRN MISC Per rx protocol 12/21/19 10:45 01/20/20 10:44 Vitamin B Complex/ Vit C/Folic Acid (Nephrovite) 1 tab DAILY ORAL 12/14/19 09:00 01/13/20 08:59 12/24/19 09:12 Zinc Sulfate (Zinc Sulfate) 220 mg DAILY ORAL 12/14/19 09:00 03/13/20 08:59 12/24/19 09:11 Ovidio Wilson MD Dec 24, 2019 11:09
--- NOTE | 2019-12-24 12:16 | Surgery Progress Note ---
Surgery Progress Note Subjective Additional Comments comfortable stable no acute events no n/v/f/c Objective Last 24 Hour Vital Signs Date Time Temp Pulse Resp B/P (MAP) Pulse Ox O2 Delivery O2 Flow Rate FiO2 12/24/19 09:12 84 121/69 12/24/19 09:00 Nasal Cannula 2.0 12/24/19 08:00 98.1 84 14 121/69 (86) 100 12/24/19 04:00 98.6 90 20 124/59 (80) 100 12/24/19 00:00 98.1 88 18 122/63 (82) 97 12/23/19 20:27 84 115/56 12/23/19 20:16 Nasal Cannula 2.0 12/23/19 20:00 98.0 84 18 115/56 (75) 96 12/23/19 16:00 97.9 83 19 128/57 (80) 100 I&O Intake and Output 12/23/19 12/24/19 19:00 07:00 Intake Total 360 ml 140 ml Balance 360 ml 140 ml Free Water 50 ml IV Total 360 ml 90 ml Dressing: saturated Wound: clean Cardiovascular: RSR Respiratory: clear, decreased breath sounds Abdomen: soft, non-tender, present bowel sounds Extremities: no tenderness, no cyanosis Laboratory Tests Test 12/23/19 20:21 12/24/19 05:25 POC Whole Blood Glucose 130 MG/DL (74-106) H White Blood Count 12.6 K/UL (4.8-10.8) H Red Blood Count 2.43 M/UL (4.20-5.40) L Hemoglobin 6.9 G/DL (12.0-16.0) *L Hematocrit 22.4 % (37.0-47.0) L Mean Corpuscular Volume 92 FL (80-99) Mean Corpuscular Hemoglobin 28.4 PG (27.0-31.0) Mean Corpuscular Hemoglobin Concent 30.8 G/DL (32.0-36.0) L Red Cell Distribution Width 15.3 % (11.6-14.8) H Platelet Count 234 K/UL (150-450) Mean Platelet Volume 6.9 FL (6.5-10.1) Neutrophils (%) (Auto) % (45.0-75.0) Lymphocytes (%) (Auto) % (20.0-45.0) Monocytes (%) (Auto) % (1.0-10.0) Eosinophils (%) (Auto) % (0.0-3.0) Basophils (%) (Auto) % (0.0-2.0) Differential Total Cells Counted 100 Neutrophils % (Manual) 76 % (45-75) H Lymphocytes % (Manual) 17 % (20-45) L Monocytes % (Manual) 6 % (1-10) Eosinophils % (Manual) 1 % (0-3) Basophils % (Manual) 0 % (0-2) Band Neutrophils 0 % (0-8) Platelet Estimate Adequate Platelet Morphology Normal Hypochromasia 4+ Anisocytosis 1+ Sodium Level 135 MMOL/L (136-145) L Potassium Level 4.8 MMOL/L (3.5-5.1) Chloride Level 98 MMOL/L (98-107) Carbon Dioxide Level 33 MMOL/L (21-32) H Anion Gap 5 mmol/L (5-15) Blood Urea Nitrogen 32 mg/dL (7-18) H Creatinine 3.1 MG/DL (0.55-1.30) H Estimat Glomerular Filtration Rate 17.9 mL/min (>60) Glucose Level 117 MG/DL (74-106) H Calcium Level 8.5 MG/DL (8.5-10.1) Total Bilirubin 0.4 MG/DL (0.2-1.0) Aspartate Amino Transf (AST/SGOT) 32 U/L (15-37) Alanine Aminotransferase (ALT/SGPT) 36 U/L (12-78) Alkaline Phosphatase 110 U/L (46-116) Total Protein 5.9 G/DL (6.4-8.2) L Albumin 1.4 G/DL (3.4-5.0) L Globulin 4.5 g/dL Albumin/Globulin Ratio 0.3 (1.0-2.7) L Plan Problems: (1) Sacral decubitus ulcer, stage IV Assessment & Plan: 74-year-old female with large DTI prior necrotic tissue significant requiring debridement status post excisional debridement identifying nonviable tissue down to coccyx and sacrum. Patient is been doing well and recovering the nursing facility with good local care. She now presents still has a large open wound which was goal to have complete granulation potential closure and coverage at some point. Unfortunately given her nutritional status and decreased oral intake she is deteriorated somewhat does have some necrotic edges and slough noted in the wound bed. There is some granulation tissue approximately 6070% with some backbleeding as well. Currently no nausea vomiting fever chills. Labs noted. Albumin low. BMI low. Poor nutritional status. At this time would recommend PEG tube placement and initiation of tube feeds along with oral intake for gratification. Patient needs nutritional optimization for her wounds and her overall care plan. We will follow with recommendations Pt presented on admission with multiple Pressure injuries. Full thickness stage 4Sacral Pressure injury with undermined borders(L)12.5cm x (W)13.5cm, Undermining clockwise 2-5 by 2.5cm @3o'clock, Undermining Clockwise 10-12 by 2.6cm@10o'clock. Scattered slough ,10% necrotic at base. Bone is palpable. Undermined borders clockwise 9-3o'clock is indurated and necrotic. Surrounding perimeter of wound is indurated, purpuric and red tinged. At apex of wound along borders is an area of necrosis from 11-3o'clock.Wound is malodorous. Small amt taylor coloured exudate noted. At R Sacrum, in close proximity to above Sacral wound is a DTPI(L)6cm x (W)3cm. Base of pressure injury is purpuric with linear area of blood filled blister. Marginal erythema along borders.Marginal erythema along borders. At R Iliac is and area of hyperpigmentation with DTPI evolving along L aspect of borders of hyperpigmented area(L)2cm x ((W)2.2cm. DTPI L Ischium(L)6cm x (W)6.5cm. Base of wound is indurated, purpuric with surrounding non-blanching erythema. Scattered area of hypopigmentation noted to most medial aspect of L Ischium and perineum. Unstageable Pressure injury R Heel. Stable dry eschar noted. (L)2cm x (W)3.4cm. Periwound R Heel is blanchable but boggy. DTPI Medial L Heel(L)3cm x (W)4cm. Base of wound is maroon and indurated. Unstageable Pressure injury L lateral Malleolus(L)3cm x (W)3cm. 100% Dry brown/ black eschar noted at base of wound. DTPI R Lateral Malleolus(L)0.5cm x (W)2cm. Base of wound is indurated purpuric with marginal erythema along borders. Tx.Plan: Cleanse Sacral wound with Dakin's 0.125% Adwoa. Loosely pack sacral wound with Dakin's moistened KERLIX. Apply Moisture Barrier Paste along borders. Cover with Optifoam drsg DAILY and PRN Apply Cavilon Skin Barrier to R Iliac. R sacrum,L Ischium. Cover each site with Optifoam drsgs. Change every 3 days and prn. Apply Betadine to Malleoli and both heels. Cover each site with Optifoam Drsgs. Change every 3days and prn. Reposition at least every 2hours or as tolerated. Place pillow between knees. Off-load heels with pillows. Air fluidized Mattress. (2) Severe malnutrition Assessment & Plan: s/p peg tf as tolerated DAILY ESTIMATED NEEDS: Needs based on Renal, HD, wound, 45.5kg 30-40 kcals/kg 3304-5585 total kcals 1.25-2 g protein/kg 57-91 g total protein Fluid per MD, on HD NUTRITION DIAGNOSIS: Increased kcal/prot intake needs R/T renal dysfunction, underweight status, wound healing as evidenced by ESRD dx, on HD, pt is 73% of [place] Body Weight w/ recent sacral stage 4 wound, s/p surgical debridement, pt os now s/p PEG placement. CURRENT DIET:NPO PO DIET RECOMMENDATIONS: liberalized regular diet/ texture as tolerated or per [employer] for oral grat ENTERAL NUTRITION RECOMMENDATIONS: Nepro w/ goal of 40ml/hr x24 hrs to provide 960ml, 1728 kcal, 78g pro, 698ml free H2O - As medically able w/ GI access, start Nepro @20ml/hr for 6 hrs, advance 5ml/hr q4 hrs to goal. - Flush per MD, on HD - HOB over 30 degrees ADDITIONAL RECOMMENDATIONS: * TF recs as above * [employer] if appropriate for oral grat * Wound healing: SIS BID + Nephrovite qdaily Vit C 250 mg BID (or per nephro), ZnSO4 220mg qd (or per Nephro) * Maintain calibrated bed scale wts; 45.5kg on calibrated bed (12/16) (3) Dementia (4) Leukocytosis (5) Weakness (6) ESRD (end stage renal disease) (7) Hypertensive nephrosclerosis (8) Anemia in chronic kidney disease (9) CVA, old, cognitive deficits (10) Deep tissue injury (11) acute toxic encephalopathy Jesse Quinn Dec 24, 2019 12:16
[2019-12-24] MEDS: Meropenem 500 MG in NS 55 ML IVPB SCH (12:20)
--- NOTE | 2019-12-24 13:36 | NUR ---
CHARGE NURSE NOTE: Unable to leave a message for pt's brother (mailbox is full) to obtain a blood transfusion consent. Spoke with and notified him. He will write in his notes that pt needs a blood transfusion.
--- NOTE | 2019-12-24 15:25 | Nephrology Progress Note ---
Assessment/Plan Problem List: (1) ESRD (end stage renal disease) (2) Hypertensive nephrosclerosis (3) CVA, old, cognitive deficits (4) Severe malnutrition (5) Sacral decubitus ulcer, stage IV (6) adult onset diabetes (7) Osteomyelitis Plan HD TTS PEG decubitus care, bp low-nl, dc iv, glu 200+ SS insulin, GT feed, CT with inflamation rectal and colon GI following Subjective ROS Limited/Unobtainable: Yes Objective Objective Last 24 Hour Vital Signs Date Time Temp Pulse Resp B/P (MAP) Pulse Ox O2 Delivery O2 Flow Rate FiO2 12/24/19 09:12 84 121/69 12/24/19 09:00 Nasal Cannula 2.0 12/24/19 08:00 98.1 84 14 121/69 (86) 100 12/24/19 04:00 98.6 90 20 124/59 (80) 100 12/24/19 00:00 98.1 88 18 122/63 (82) 97 12/23/19 20:27 84 115/56 12/23/19 20:16 Nasal Cannula 2.0 12/23/19 20:00 98.0 84 18 115/56 (75) 96 12/23/19 16:00 97.9 83 19 128/57 (80) 100 Intake and Output 12/23/19 12/24/19 19:00 07:00 Intake Total 360 ml 140 ml Balance 360 ml 140 ml Free Water 50 ml IV Total 360 ml 90 ml Laboratory Tests 12/23/19 20:21: POC Whole Blood Glucose 130H 12/24/19 05:25: White Blood Count 12.6H, Red Blood Count 2.43L, Hemoglobin 6.9*L, Hematocrit 22.4L, Mean Corpuscular Volume 92, Mean Corpuscular Hemoglobin 28.4, Mean Corpuscular Hemoglobin Concent 30.8L, Red Cell Distribution Width 15.3H, Platelet Count 234, Mean Platelet Volume 6.9, Neutrophils (%) (Auto) , Lymphocytes (%) (Auto) , Monocytes (%) (Auto) , Eosinophils (%) (Auto) , Basophils (%) (Auto) , Differential Total Cells Counted 100, Neutrophils % ( Manual) 76H, Lymphocytes % (Manual) 17L, Monocytes % (Manual) 6, Eosinophils % ( Manual) 1, Basophils % (Manual) 0, Band Neutrophils 0, Platelet Estimate Adequate, Platelet Morphology Normal, Hypochromasia 4+, Anisocytosis 1+, Sodium Level 135L, Potassium Level 4.8, Chloride Level 98, Carbon Dioxide Level 33H, Anion Gap 5, Blood Urea Nitrogen 32H, Creatinine 3.1H, Estimat Glomerular Filtration Rate 17.9, Glucose Level 117H, Calcium Level 8.5, Total Bilirubin 0.4 , Aspartate Amino Transf (AST/SGOT) 32, Alanine Aminotransferase (ALT/SGPT) 36, Alkaline Phosphatase 110, Total Protein 5.9L, Albumin 1.4L, Globulin 4.5, Albumin/Globulin Ratio 0.3L 12/24/19 14:15: Lactic Acid Level 0.70 Height (Feet): 5 Height (Inches): 5.00 Weight (Pounds): 112 General Appearance: no apparent distress, lethargic, confused Neck: normal alignment Cardiovascular: regular rhythm Respiratory/Chest: lungs clear Abdomen: soft Extremities: no edema Neurologic: abnormal [employer] [place] II-XII, motor weakness Objective large decubitus Dylon Stringer MD Dec 24, 2019 15:25
[2019-12-24] MEDS: D5 1/2NS 1,000 ML IV SCH (15:30)
--- NOTE | 2019-12-24 15:38 | NUR ---
CASE MANAGEMENT:REVIEW SI;COCCYGEAL OSTEOMYELITIS. AC TOXIC ENCEPHALOPATHY. ESRD on HD. 98.6 900 20 126/68 97% 2L NC WBC 12.6 H/H 6.9/22.4 NA 135 CO2 33 ALB 1.4 IS;MEROPENEM IV Q24 IVF D5W @ 30 ML/HR ZOFRAN IV DIFLUCAN GT ASA GT HEPARIN SUBQ Q12 ZINC GT TRANSFUSED 1 UNIT PRBC MED SURG STATUS DCP;FROM [facility] PLAN; TF ON HOLD D/T INTOLERANCE RESTART TF- HOLD IF RESIDUAL <150cc MONITOR FOR BLEEDING WOUND CARE CT SCAN
--- NOTE | 2019-12-24 16:15 | Discharge Summary ---
DATE OF ADMISSION: 12/13/2019 DATE OF DISCHARGE: 12/22/2019 ADMISSION DIAGNOSES: 1. Failure to thrive. 2. Severe protein malnutrition. 3. . 4. History of psychosis. 5. Toxic and metabolic encephalopathy. DISCHARGE DIAGNOSES: 1. Failure to thrive. 2. Severe protein malnutrition. 3. . 4. History of psychosis. 5. Toxic and metabolic encephalopathy. HOSPITAL COURSE: The patient was admitted because of poor p.o. intake. She had minimal p.o. intake. She did not pass the swallow evaluation. She underwent placement of an uncomplicated G-tube since she is minimally eating. Her hospital course was complicated by worsening leukocytosis. Workup was negative except for and did show osteomyelitis. She has a prior history of wound status post debridement. ID consultation was obtained. It was recommended that the patient go back to [facility] to complete additional full 6 weeks course of IV antibiotic therapy for osteomyelitis. DISCHARGE MEDICATIONS: Please see discharge medication list for discharge medications. DIET: G-tube feedings. ACTIVITY: Ad-cristóbal. Freddy Quevedo M.D. DR: ASHLEIGH JOB#: [id number] CC:
--- NOTE | 2019-12-24 17:20 | NUR ---
NURSE NOTES: cracking unit operator Gely called [facility] nephrology, notified dr. Stringer's order por pt to undergo HD tomorrow 12/24. Spoken to Lisa.
--- NOTE | 2019-12-24 18:30 | NUR ---
NURSE NOTES: changed dressing of sacral wound as per dr order. Patient receiving PRBC, no adverse event noted. Started Nepro 20cc/hr, goaL IS 40CC. no gastric residual so far.
--- NOTE | 2019-12-24 19:20 | NUR ---
NURSE NOTES: Received patient with ongoing blood transfusion, no s/s of acute distress. G tube feeding currently at 20cc/hr, patient tolerating.
--- NOTE | 2019-12-24 19:28 | NUR ---
HAND-OFF: Report given to MICHAEL Smith.
[2019-12-24] MEDS ORDERED: Epoetin Alfa-EPBX(ESRD on dialysis)2000 units/ml vial SUBQ SCH (21:00)
[2019-12-24] MEDS ORDERED: Epoetin Alfa-EPBX(ESRD on dialysis)4000 units/ml vial SUBQ SCH (21:00)
[2019-12-24] MEDS: Dakin's 0.125% Soln (Quarter Strength) 16oz TOPIC SCH (21:00)
--- NOTE | 2019-12-24 23:02 | General Progress Note ---
Assessment/Plan Status: stable, progressing Assessment/Plan: Assessment - TF intolerance - leukocytosis - Anemia - multifactorial - Anorexia, malnutrition - OBS - Decubitus ulcer / osteo - azotemia - improving - s/p PEG Recommendations - follow CBC - transfuse PRN - will consider flex sig - C Diff assay pending - wound care - Resume TF - GT care - elevate HOB - Abx Subjective Allergies: Coded Allergies: No Known Allergies (Unverified , 02/27/19) Subjective Above noted d/w RN CT noted --> distal colitis H&H lower today Objective Last 24 Hour Vital Signs Date Time Temp Pulse Resp B/P (MAP) Pulse Ox O2 Delivery O2 Flow Rate FiO2 12/24/19 21:58 Nasal Cannula 2.0 12/24/19 21:00 98.1 90 15 106/47 (66) 96 12/24/19 20:11 77 117/60 12/24/19 17:00 77 117/60 (79) 12/24/19 16:00 98.2 78 15 112/57 (75) 96 12/24/19 12:00 97.7 77 16 126/68 (87) 100 12/24/19 09:12 84 121/69 12/24/19 09:00 Nasal Cannula 2.0 12/24/19 08:00 98.1 84 14 121/69 (86) 100 12/24/19 04:00 98.6 90 20 124/59 (80) 100 12/24/19 00:00 98.1 88 18 122/63 (82) 97 Intake and Output 12/23/19 12/24/19 19:00 07:00 Intake Total 360 ml 140 ml Balance 360 ml 140 ml Free Water 50 ml IV Total 360 ml 90 ml Laboratory Tests 12/24/19 05:25: White Blood Count 12.6H, Red Blood Count 2.43L, Hemoglobin 6.9*L, Hematocrit 22.4L, Mean Corpuscular Volume 92, Mean Corpuscular Hemoglobin 28.4, Mean Corpuscular Hemoglobin Concent 30.8L, Red Cell Distribution Width 15.3H, Platelet Count 234, Mean Platelet Volume 6.9, Neutrophils (%) (Auto) , Lymphocytes (%) (Auto) , Monocytes (%) (Auto) , Eosinophils (%) (Auto) , Basophils (%) (Auto) , Differential Total Cells Counted 100, Neutrophils % ( Manual) 76H, Lymphocytes % (Manual) 17L, Monocytes % (Manual) 6, Eosinophils % ( Manual) 1, Basophils % (Manual) 0, Band Neutrophils 0, Platelet Estimate Adequate, Platelet Morphology Normal, Hypochromasia 4+, Anisocytosis 1+, Sodium Level 135L, Potassium Level 4.8, Chloride Level 98, Carbon Dioxide Level 33H, Anion Gap 5, Blood Urea Nitrogen 32H, Creatinine 3.1H, Estimat Glomerular Filtration Rate 17.9, Glucose Level 117H, Calcium Level 8.5, Total Bilirubin 0.4 , Aspartate Amino Transf (AST/SGOT) 32, Alanine Aminotransferase (ALT/SGPT) 36, Alkaline Phosphatase 110, Total Protein 5.9L, Albumin 1.4L, Globulin 4.5, Albumin/Globulin Ratio 0.3L 12/24/19 14:15: Lactic Acid Level 0.70 Height (Feet): 5 Height (Inches): 5.00 Weight (Pounds): 112 Objective Thin AA woman NCAT supple CTA RRR abd soft flat ND Ext no edema (+) decub ulcers OBS Willow Cee MD Dec 24, 2019 23:02
--- NOTE | 2019-12-24 23:16 | Cardiology Progress Note ---
Subjective DATE OF SERVICE: Dec 24, 2019 Remains withdrawn, but alert. Now has radiographic signs of sigmoid colitis. Completing anti-fungal therapy for cystitis. BP range better, but still low normal range off therapy. Clonidine patch was discontinued on 12/16. S/p uncomplicated PEG 12/17/19. No fevers/chills, N/V,D. No SOB. CT scan consistent with osteomyelitis. REVIEW OF SYSTEMS: unchanged from assessment of 12/15/19 However noted that atorvastatin dose was decreased to 10mg during last hospitalization, based on lipid panel. Objective Last 24 Hour Vital Signs Date Time Temp Pulse Resp B/P (MAP) Pulse Ox O2 Delivery O2 Flow Rate FiO2 12/24/19 21:58 Nasal Cannula 2.0 12/24/19 21:00 98.1 90 15 106/47 (66) 96 12/24/19 20:11 77 117/60 12/24/19 17:00 77 117/60 (79) 12/24/19 16:00 98.2 78 15 112/57 (75) 96 12/24/19 12:00 97.7 77 16 126/68 (87) 100 12/24/19 09:12 84 121/69 12/24/19 09:00 Nasal Cannula 2.0 12/24/19 08:00 98.1 84 14 121/69 (86) 100 12/24/19 04:00 98.6 90 20 124/59 (80) 100 12/24/19 00:00 98.1 88 18 122/63 (82) 97 HEENT: normal ENT inspection RHYTHM: ST LUNGS: lungs clear bilaterally CARDIAC: regular rhythm, normal S1 and S2, rapid rate ABDOMEN: non tender, soft, no organomegaly, distended, G-Tube intact EXTREMITIES: No edema, other - Palpable bruit over UE AV fistula Laboratory Tests Test 12/24/19 05:25 12/24/19 14:15 White Blood Count 12.6 K/UL (4.8-10.8) H Red Blood Count 2.43 M/UL (4.20-5.40) L Hemoglobin 6.9 G/DL (12.0-16.0) *L Hematocrit 22.4 % (37.0-47.0) L Mean Corpuscular Volume 92 FL (80-99) Mean Corpuscular Hemoglobin 28.4 PG (27.0-31.0) Mean Corpuscular Hemoglobin Concent 30.8 G/DL (32.0-36.0) L Red Cell Distribution Width 15.3 % (11.6-14.8) H Platelet Count 234 K/UL (150-450) Mean Platelet Volume 6.9 FL (6.5-10.1) Neutrophils (%) (Auto) % (45.0-75.0) Lymphocytes (%) (Auto) % (20.0-45.0) Monocytes (%) (Auto) % (1.0-10.0) Eosinophils (%) (Auto) % (0.0-3.0) Basophils (%) (Auto) % (0.0-2.0) Differential Total Cells Counted 100 Neutrophils % (Manual) 76 % (45-75) H Lymphocytes % (Manual) 17 % (20-45) L Monocytes % (Manual) 6 % (1-10) Eosinophils % (Manual) 1 % (0-3) Basophils % (Manual) 0 % (0-2) Band Neutrophils 0 % (0-8) Platelet Estimate Adequate Platelet Morphology Normal Hypochromasia 4+ Anisocytosis 1+ Sodium Level 135 MMOL/L (136-145) L Potassium Level 4.8 MMOL/L (3.5-5.1) Chloride Level 98 MMOL/L (98-107) Carbon Dioxide Level 33 MMOL/L (21-32) H Anion Gap 5 mmol/L (5-15) Blood Urea Nitrogen 32 mg/dL (7-18) H Creatinine 3.1 MG/DL (0.55-1.30) H Estimat Glomerular Filtration Rate 17.9 mL/min (>60) Glucose Level 117 MG/DL (74-106) H Calcium Level 8.5 MG/DL (8.5-10.1) Total Bilirubin 0.4 MG/DL (0.2-1.0) Aspartate Amino Transf (AST/SGOT) 32 U/L (15-37) Alanine Aminotransferase (ALT/SGPT) 36 U/L (12-78) Alkaline Phosphatase 110 U/L (46-116) Total Protein 5.9 G/DL (6.4-8.2) L Albumin 1.4 G/DL (3.4-5.0) L Globulin 4.5 g/dL Albumin/Globulin Ratio 0.3 (1.0-2.7) L Lactic Acid Level 0.70 mmol/L (0.4-2.0) Assessment/Plan Assessment/Plan Sigmoid colitis Severe protein/calorie malnutrition Anemia of CKD ESRD Dysphagia Hx CVA with dementia Metabolic encephalopathy Sinus tachycardia Hypertension/HHD Chronic diastolic CHF Sacral wound - s/p debridement Severe sepsis Dehydration/hypovolemia corrected fungal cystitis Osteomyelitis Persisting leukocytosis Increased risk for endocarditis HD/UF Free water replacement as needed DVT prophylaxis Antimicrobials per ID Review 2D Echo Bulmaro Hester MD Dec 24, 2019 23:16
[2019-12-25] VITALS: BP 102/50
--- NOTE | 2019-12-25 03:35 | NUR ---
NURSE NOTES: C-dif sample sent to lab, ordered by Dr Quevedo. Patient had watery diarrhea episode x3.
[2019-12-25 04:00] VITALS: BP 122/48
[2019-12-25] MEDS: NovoLOG Insulin Flexpen SUBQ SCH ×4 (05:42→21:21)
[2019-12-25] MEDS ORDERED: Heparin Sod 1000 units/ml 10ml IV PRN (06:00)
--- NOTE | 2019-12-25 07:27 | NUR ---
HAND-OFF: Report given to MICHAEL Muse.
--- NOTE | 2019-12-25 07:42 | NUR ---
NURSE NOTES: Pt. is in bed awake, and non-verbal. no SOB noted. no facial grimacing for pain and discomfort noted. HOB elevated. g-tube in-place. no acute distress noted. call light is within reach.
--- NOTE | 2019-12-25 07:45 | NUR ---
RD ASSESSMENT & RECOMMENDATIONS SEE CARE ACTIVITY FOR COMPLETE ASSESSMENT DAILY ESTIMATED NEEDS: Needs based on Renal, HD, wound, 45.5kg 30-40 kcals/kg 4085-1811 total kcals 1.25-2 g protein/kg 57-91 g total protein Fluid per MD, on HD NUTRITION DIAGNOSIS: Increased kcal/prot intake needs R/T renal dysfunction, underweight status, wound healing as evidenced by ESRD dx, on HD, pt is 73% of [place] Body Weight w/ recent sacral stage 4 wound, s/p surgical debridement, pt os now s/p PEG placement. CURRENT TF: Nepro @ 40ml/hr x24 hrs ENTERAL NUTRITION RECOMMENDATIONS: Nepro @ 40ml/hr x24 hrs to provide 960ml, 1728 kcal, 78g pro, 698ml free H2O - Cont to advance TF slowly as tolerated to goal - Flush per MD, on HD - HOB over 30 degrees ADDITIONAL RECOMMENDATIONS: * Maintain calibrated bed scale wts; 45.5kg on calibrated bed (12/16) * Wound healing: continue Nephrovite x1 Josué 1pkt BID (mix w/ 2oz water) via PEG Dosing for Vit C and ZnSO4 per nephro * Monitor BGs, need for additional hypoglycemics * Add probiotics for diarrhea * Consider adding prokinetics w/ continued residuals
[2019-12-25 08:00] VITALS: BP 132/57
[2019-12-25 08:34] LABS: BASOPHILS % (AUTO) 0.4 % (0.0-2.0); EOSINOPHILS % (AUTO) 0.3 % (0.0-3.0); HEMOGLOBIN 8.6 G/DL (12.0-16.0); LYMPHOCYTES % (AUTO) 14.6 % (20.0-45.0); MEAN CORPUSCULAR VOLUME 91 FL (80-99); MONOCYTES % (AUTO) 6.7 % (1.0-10.0); PLATELET COUNT 239 K/UL (150-450); RED BLOOD COUNT 2.98 M/UL (4.20-5.40); RED CELL DISTRIBUTION WIDTH 14.2 % (11.6-14.8); WHITE BLOOD COUNT 13.3 K/UL (4.8-10.8)
[2019-12-25] MEDS: Heparin 5000 units/ml inj SUBQ SCH ×2 (08:48→20:35)
[2019-12-25] MEDS: Zinc Sulfate 220mg ORAL SCH (08:48)
[2019-12-25] MEDS: Ascorbic Acid 500mg tab ORAL SCH (08:48)
[2019-12-25] MEDS: Aspirin Baby 81mg ORAL SCH (08:49)
[2019-12-25] MEDS: Nephrovite tab (Rena-Vite) ORAL SCH (08:49)
[2019-12-25] MEDS: Metoprolol Tartrate 50mg tab ORAL SCH ×2 (08:49→20:35)
[2019-12-25] MEDS: Fluconazole 100mg tab ORAL SCH (08:49)
--- NOTE | 2019-12-25 08:56 | General Progress Note ---
Assessment/Plan Problem List: (1) Dementia ICD Codes: F03.90 - Unspecified dementia without behavioral disturbance SNOMED: 38577273 (2) Weakness ICD Codes: R53.1 - Weakness SNOMED: 28986452 (3) ESRD (end stage renal disease) ICD Codes: N18.6 - End stage renal disease SNOMED: 84892352 (4) Hypertensive nephrosclerosis ICD Codes: I12.9 - Hypertensive chronic kidney disease with stage 1 through stage 4 chronic kidney disease, or unspecified chronic kidney disease SNOMED: 972015163 (5) CVA, old, cognitive deficits ICD Codes: I69.319 - Unspecified symptoms and signs involving cognitive functions following cerebral infarction SNOMED: 03082275, 631177374, 251656229, 889419926 (6) Deep tissue injury ICD Codes: T14.8XXA - Other injury of unspecified body region, initial encounter SNOMED: 962564914 (7) acute toxic encephalopathy (8) Severe malnutrition ICD Codes: E43 - Unspecified severe protein-calorie malnutrition SNOMED: 55421993 (9) Sacral decubitus ulcer, stage IV ICD Codes: L89.154 - Pressure ulcer of sacral region, stage 4 SNOMED: 954130726, 030104441 Status: stable, progressing Assessment/Plan: GT feeds antiemetics await C diff abx per ID wound care BP rx as needed monitor labs HD per renal skin/wound care turn q2 Subjective ROS Limited/Unobtainable: Yes Constitutional: Reports: malaise, weakness HEENT: Reports: no symptoms Cardiovascular: Reports: no symptoms Respiratory: Reports: no symptoms Gastrointestinal/Abdominal: Reports: diarrhea Genitourinary: Reports: no symptoms Neurologic/Psychiatric: Reports: pre-existing deficit Endocrine: Reports: no symptoms Hematologic/Lymphatic: Reports: anemia Allergies: Coded Allergies: No Known Allergies (Unverified , 02/27/19) All Systems: reviewed and negative except above Subjective no events. +diarrhea. GI noted. CT with distal colitis. pt remains withdrawn. no distress. on iv abx. no fevers. BP stable. no reports of bleeding. C diff sent- no results yet tolerating feeds except for diarrhea Objective Last 24 Hour Vital Signs Date Time Temp Pulse Resp B/P (MAP) Pulse Ox O2 Delivery O2 Flow Rate FiO2 12/25/19 08:00 98.1 82 15 132/57 (82) 100 12/25/19 04:00 98.1 82 15 122/48 (72) 96 12/25/19 00:00 97.7 85 15 102/50 (67) 96 12/24/19 21:58 Nasal Cannula 2.0 12/24/19 21:00 98.1 90 15 106/47 (66) 96 12/24/19 20:11 77 117/60 12/24/19 17:00 77 117/60 (79) 12/24/19 16:00 98.2 78 15 112/57 (75) 96 12/24/19 12:00 97.7 77 16 126/68 (87) 100 12/24/19 09:12 84 121/69 12/24/19 09:00 Nasal Cannula 2.0 Intake and Output 12/24/19 12/25/19 19:00 07:00 Intake Total 60 ml Balance 60 ml Tube Feeding 60 ml # Voids 2 # Bowel Movements 1 2 Laboratory Tests 12/24/19 14:15: Lactic Acid Level 0.70 12/25/19 07:55: White Blood Count 13.3H, Red Blood Count 2.98L, Hemoglobin 8.6L, Hematocrit 27.0L, Mean Corpuscular Volume 91, Mean Corpuscular Hemoglobin 28.8, Mean Corpuscular Hemoglobin Concent 31.7L, Red Cell Distribution Width 14.2, Platelet Count 239, Mean Platelet Volume 6.3L, Neutrophils (%) (Auto) 78.0H, Lymphocytes (%) (Auto) 14.6L, Monocytes (%) (Auto) 6.7, Eosinophils (%) (Auto) 0.3, Basophils (%) (Auto) 0.4 Height (Feet): 5 Height (Inches): 5.00 Weight (Pounds): 112 Objective General Appearance: WD/WN, lethargic, confused EENT: PERRL/EOMI Neck: non-tender, normal alignment, supple Cardiovascular: normal peripheral pulses, normal rate, regular rhythm Respiratory/Chest: chest wall non-tender, lungs clear, normal breath sounds Abdomen: normal bowel sounds, non tender, soft, no organomegaly, no mass Edema: no edema noted Arm (L), no edema noted Arm (R) Neurologic: new media strategist II-XII grossly normal, alert, responsive, disoriented Skin: normal pigmentation Lymphatic: normal anterior cervical (L), normal anterior cervical (R) Freddy Quevedo MD Dec 25, 2019 08:56
--- NOTE | 2019-12-25 10:48 | Infectious Diseases Prog Note ---
Assessment/Plan Assessment/Plan antibiotics ; meropenem, fluconazole A 1. coccygeal osteomyelitis with e.coli, morganella 2. dementia 3. hypertension 4. renal failure on HD 1. continue meropenem 40 more days 2. d/c fluconazole 3. will follow up cultures Subjective ROS Limited/Unobtainable: Yes Allergies: Coded Allergies: No Known Allergies (Unverified , 02/27/19) Objective Last 24 Hour Vital Signs Date Time Temp Pulse Resp B/P (MAP) Pulse Ox O2 Delivery O2 Flow Rate FiO2 12/25/19 08:49 82 132/57 12/25/19 08:00 98.1 82 15 132/57 (82) 100 12/25/19 04:00 98.1 82 15 122/48 (72) 96 12/25/19 00:00 97.7 85 15 102/50 (67) 96 12/24/19 21:58 Nasal Cannula 2.0 12/24/19 21:00 98.1 90 15 106/47 (66) 96 12/24/19 20:11 77 117/60 12/24/19 17:00 77 117/60 (79) 12/24/19 16:00 98.2 78 15 112/57 (75) 96 12/24/19 12:00 97.7 77 16 126/68 (87) 100 Height (Feet): 5 Height (Inches): 5.00 Weight (Pounds): 112 Respiratory/Chest: lungs clear Cardiovascular: normal rate, regular rhythm, no gallop/murmur Abdomen: soft, non tender, other - GT Extremities: no edema Laboratory Tests Test 12/24/19 14:15 12/25/19 07:55 Lactic Acid Level 0.70 mmol/L (0.4-2.0) White Blood Count 13.3 K/UL (4.8-10.8) H Red Blood Count 2.98 M/UL (4.20-5.40) L Hemoglobin 8.6 G/DL (12.0-16.0) L Hematocrit 27.0 % (37.0-47.0) L Mean Corpuscular Volume 91 FL (80-99) Mean Corpuscular Hemoglobin 28.8 PG (27.0-31.0) Mean Corpuscular Hemoglobin Concent 31.7 G/DL (32.0-36.0) L Red Cell Distribution Width 14.2 % (11.6-14.8) Platelet Count 239 K/UL (150-450) Mean Platelet Volume 6.3 FL (6.5-10.1) L Neutrophils (%) (Auto) 78.0 % (45.0-75.0) H Lymphocytes (%) (Auto) 14.6 % (20.0-45.0) L Monocytes (%) (Auto) 6.7 % (1.0-10.0) Eosinophils (%) (Auto) 0.3 % (0.0-3.0) Basophils (%) (Auto) 0.4 % (0.0-2.0) Current Medications Medications (Trade) Dose Ordered Sig/Jeanne Route PRN Reason Start Time Stop Time Status Last Admin Dose Admin Acetaminophen (Tylenol) 650 mg Q4H PRN ORAL mild pain/T>100.5 12/13/19 20:00 01/12/20 19:59 Ascorbic Acid (Vitamin C) 500 mg DAILY ORAL 12/14/19 09:00 01/13/20 08:59 12/25/19 08:48 Aspirin (ASA) 81 mg DAILY ORAL 12/14/19 09:00 01/28/20 08:59 12/25/19 08:49 Atorvastatin Calcium (Lipitor) 10 mg BEDTIME ORAL 12/18/19 21:00 03/17/20 20:59 12/24/19 20:11 Barium Sulfate (Readi-Cat 2) 450 ml NOW PRN ORAL Radiology Procedure 12/23/19 22:15 12/25/19 22:10 12/23/19 22:42 Dextrose (Dextrose 50%) 25 ml Q30M PRN IV Hypoglycemia 12/21/19 13:00 03/20/20 12:59 Dextrose (Dextrose 50%) 50 ml Q30M PRN IV Hypoglycemia 12/21/19 13:00 03/20/20 12:59 Dextrose/Sodium Chloride 1,000 ml @ 30 mls/hr Q24H IV 12/23/19 15:30 01/22/20 15:29 12/23/19 16:38 Epoetin Reuben (Epoetin Reuben(ESRD on dialysis)) 2,000 unit TUE-TUE-TUE SUBQ 12/24/19 21:00 03/23/20 20:59 12/24/19 20:57 Epoetin Reuben (Epoetin Reuben(ESRD on dialysis)) 4,000 unit TUE-TUE-TUE SUBQ 12/24/19 21:00 03/23/20 20:59 12/24/19 20:57 Escitalopram Oxalate (Lexapro) 10 mg DAILY ORAL 12/14/19 09:00 01/13/20 08:59 12/25/19 08:49 Fluconazole (Diflucan) 100 mg DAILY ORAL 12/21/19 13:00 12/28/19 12:59 12/25/19 08:49 Heparin Sodium (Porcine) (Heparin 5000 units/ml) 5,000 units EVERY 12 HOURS SUBQ 12/14/19 09:00 01/28/20 08:59 12/25/19 08:48 Heparin Sodium (Porcine) (Heparin Sod 1000 units/ml 10ml) 500 unit ONCE PRN IV HD 12/25/19 06:00 12/25/19 23:59 Insulin Aspart (NovoLOG) BEFORE MEALS AND HS SUBQ 12/21/19 16:30 03/20/20 16:29 12/23/19 11:53 Magnesium Hydroxide (Mom) 30 ml DAILYPRN PRN ORAL Constipation 12/13/19 20:00 01/12/20 19:59 12/23/19 20:30 Meropenem 500 mg/ Sodium Chloride 55 ml @ 110 mls/hr Q24H IVPB 12/24/19 13:00 12/29/19 12:59 12/24/19 12:20 Metoprolol Tartrate (Lopressor) 50 mg Q12HR ORAL 12/13/19 21:00 03/12/20 20:59 12/24/19 20:11 Olanzapine (ZyPREXA) 2.5 mg Q6H PRN ORAL Agitation 12/13/19 20:00 01/27/20 19:59 Ondansetron HCl (Zofran) 4 mg Q4H PRN IVP Nausea & Vomiting 12/22/19 21:15 01/21/20 21:14 12/22/19 21:25 Sodium Hypochlorite (Dakin's Quarter Strength) 1 applic QHS TOPIC 12/18/19 21:00 01/17/20 20:59 12/24/19 21:00 Sodium Chloride 1,000 ml @ 500 mls/hr Q2H PRN IVLG sbp<90 during hd 12/25/19 06:00 12/25/19 23:59 Vitamin B Complex/ Vit C/Folic Acid (Nephrovite) 1 tab DAILY ORAL 12/14/19 09:00 01/13/20 08:59 12/25/19 08:49 Zinc Sulfate (Zinc Sulfate) 220 mg DAILY ORAL 12/14/19 09:00 03/13/20 08:59 12/25/19 08:48 Ovidio Wilson MD Dec 25, 2019 10:48
[2019-12-25 12:00] VITALS: BP 118/56
[2019-12-25] MEDS: Meropenem 500 MG in NS 55 ML IVPB SCH (13:07)
--- NOTE | 2019-12-25 13:17 | Nephrology Progress Note ---
Assessment/Plan Problem List: (1) ESRD (end stage renal disease) (2) Hypertensive nephrosclerosis (3) CVA, old, cognitive deficits (4) Severe malnutrition (5) Sacral decubitus ulcer, stage IV (6) adult onset diabetes (7) Osteomyelitis Plan HD TTS PEG decubitus care, bp low-nl, dc iv, glu 200+ SS insulin, glu now most low 100's GT feed, CT with inflamation rectal and colon GI following Subjective ROS Limited/Unobtainable: Yes Objective Objective Last 24 Hour Vital Signs Date Time Temp Pulse Resp B/P (MAP) Pulse Ox O2 Delivery O2 Flow Rate FiO2 12/25/19 12:00 98.3 84 15 118/56 (76) 100 12/25/19 09:00 Nasal Cannula 2.0 12/25/19 08:49 82 132/57 12/25/19 08:00 98.1 82 15 132/57 (82) 100 12/25/19 04:00 98.1 82 15 122/48 (72) 96 12/25/19 00:00 97.7 85 15 102/50 (67) 96 12/24/19 21:58 Nasal Cannula 2.0 12/24/19 21:00 98.1 90 15 106/47 (66) 96 12/24/19 20:11 77 117/60 12/24/19 17:00 77 117/60 (79) 12/24/19 16:00 98.2 78 15 112/57 (75) 96 Intake and Output 12/24/19 12/25/19 19:00 07:00 Intake Total 60 ml Balance 60 ml Tube Feeding 60 ml # Voids 2 # Bowel Movements 1 2 Laboratory Tests 12/24/19 14:15: Lactic Acid Level 0.70 12/25/19 07:55: White Blood Count 13.3H, Red Blood Count 2.98L, Hemoglobin 8.6L, Hematocrit 27.0L, Mean Corpuscular Volume 91, Mean Corpuscular Hemoglobin 28.8, Mean Corpuscular Hemoglobin Concent 31.7L, Red Cell Distribution Width 14.2, Platelet Count 239, Mean Platelet Volume 6.3L, Neutrophils (%) (Auto) 78.0H, Lymphocytes (%) (Auto) 14.6L, Monocytes (%) (Auto) 6.7, Eosinophils (%) (Auto) 0.3, Basophils (%) (Auto) 0.4 Height (Feet): 5 Height (Inches): 5.00 Weight (Pounds): 112 General Appearance: lethargic, confused Cardiovascular: regular rhythm Respiratory/Chest: lungs clear Abdomen: soft Extremities: no edema Neurologic: abnormal rn acls II-XII, motor weakness Objective large decubitus Dylon Stringer MD Dec 25, 2019 13:17
--- NOTE | 2019-12-25 14:07 | Surgery Progress Note ---
Surgery Progress Note Subjective Additional Comments no acute events comfortable states she is well no n/v/f/c Objective Last 24 Hour Vital Signs Date Time Temp Pulse Resp B/P (MAP) Pulse Ox O2 Delivery O2 Flow Rate FiO2 12/25/19 12:00 98.3 84 15 118/56 (76) 100 12/25/19 09:00 Nasal Cannula 2.0 12/25/19 08:49 82 132/57 12/25/19 08:00 98.1 82 15 132/57 (82) 100 12/25/19 04:00 98.1 82 15 122/48 (72) 96 12/25/19 00:00 97.7 85 15 102/50 (67) 96 12/24/19 21:58 Nasal Cannula 2.0 12/24/19 21:00 98.1 90 15 106/47 (66) 96 12/24/19 20:11 77 117/60 12/24/19 17:00 77 117/60 (79) 12/24/19 16:00 98.2 78 15 112/57 (75) 96 I&O Intake and Output 12/24/19 12/25/19 19:00 07:00 Intake Total 60 ml Balance 60 ml Tube Feeding 60 ml # Voids 2 # Bowel Movements 1 2 Dressing: saturated Wound: clean Cardiovascular: RSR Respiratory: decreased breath sounds Abdomen: soft, non-tender, present bowel sounds Extremities: no tenderness, no cyanosis Laboratory Tests Test 12/24/19 14:15 12/25/19 07:55 Lactic Acid Level 0.70 mmol/L (0.4-2.0) White Blood Count 13.3 K/UL (4.8-10.8) H Red Blood Count 2.98 M/UL (4.20-5.40) L Hemoglobin 8.6 G/DL (12.0-16.0) L Hematocrit 27.0 % (37.0-47.0) L Mean Corpuscular Volume 91 FL (80-99) Mean Corpuscular Hemoglobin 28.8 PG (27.0-31.0) Mean Corpuscular Hemoglobin Concent 31.7 G/DL (32.0-36.0) L Red Cell Distribution Width 14.2 % (11.6-14.8) Platelet Count 239 K/UL (150-450) Mean Platelet Volume 6.3 FL (6.5-10.1) L Neutrophils (%) (Auto) 78.0 % (45.0-75.0) H Lymphocytes (%) (Auto) 14.6 % (20.0-45.0) L Monocytes (%) (Auto) 6.7 % (1.0-10.0) Eosinophils (%) (Auto) 0.3 % (0.0-3.0) Basophils (%) (Auto) 0.4 % (0.0-2.0) Plan Problems: (1) Sacral decubitus ulcer, stage IV Assessment & Plan: 74-year-old female with large DTI prior necrotic tissue significant requiring debridement status post excisional debridement identifying nonviable tissue down to coccyx and sacrum. Patient is been doing well and recovering the nursing facility with good local care. She now presents still has a large open wound which was goal to have complete granulation potential closure and coverage at some point. Unfortunately given her nutritional status and decreased oral intake she is deteriorated somewhat does have some necrotic edges and slough noted in the wound bed. There is some granulation tissue approximately 6070% with some backbleeding as well. Currently no nausea vomiting fever chills. Labs noted. Albumin low. BMI low. Poor nutritional status. At this time would recommend PEG tube placement and initiation of tube feeds along with oral intake for gratification. Patient needs nutritional optimization for her wounds and her overall care plan. We will follow with recommendations Pt presented on admission with multiple Pressure injuries. Full thickness stage 4Sacral Pressure injury with undermined borders(L)12.5cm x (W)13.5cm, Undermining clockwise 2-5 by 2.5cm @3o'clock, Undermining Clockwise 10-12 by 2.6cm@10o'clock. Scattered slough ,10% necrotic at base. Bone is palpable. Undermined borders clockwise 9-3o'clock is indurated and necrotic. Surrounding perimeter of wound is indurated, purpuric and red tinged. At apex of wound along borders is an area of necrosis from 11-3o'clock.Wound is malodorous. Small amt taylor coloured exudate noted. At R Sacrum, in close proximity to above Sacral wound is a DTPI(L)6cm x (W)3cm. Base of pressure injury is purpuric with linear area of blood filled blister. Marginal erythema along borders.Marginal erythema along borders. At R Iliac is and area of hyperpigmentation with DTPI evolving along L aspect of borders of hyperpigmented area(L)2cm x ((W)2.2cm. DTPI L Ischium(L)6cm x (W)6.5cm. Base of wound is indurated, purpuric with surrounding non-blanching erythema. Scattered area of hypopigmentation noted to most medial aspect of L Ischium and perineum. Unstageable Pressure injury R Heel. Stable dry eschar noted. (L)2cm x (W)3.4cm. Periwound R Heel is blanchable but boggy. DTPI Medial L Heel(L)3cm x (W)4cm. Base of wound is maroon and indurated. Unstageable Pressure injury L lateral Malleolus(L)3cm x (W)3cm. 100% Dry brown/ black eschar noted at base of wound. DTPI R Lateral Malleolus(L)0.5cm x (W)2cm. Base of wound is indurated purpuric with marginal erythema along borders. Tx.Plan: Cleanse Sacral wound with Dakin's 0.125% Adwoa. Loosely pack sacral wound with Dakin's moistened KERLIX. Apply Moisture Barrier Paste along borders. Cover with Optifoam drsg DAILY and PRN Apply Cavilon Skin Barrier to R Iliac. R sacrum,L Ischium. Cover each site with Optifoam drsgs. Change every 3 days and prn. Apply Betadine to Malleoli and both heels. Cover each site with Optifoam Drsgs. Change every 3days and prn. Reposition at least every 2hours or as tolerated. Place pillow between knees. Off-load heels with pillows. Air fluidized Mattress. (2) Severe malnutrition Assessment & Plan: s/p peg tf as tolerated DAILY ESTIMATED NEEDS: Needs based on Renal, HD, wound, 45.5kg 30-40 kcals/kg 7519-9354 total kcals 1.25-2 g protein/kg 57-91 g total protein Fluid per MD, on HD NUTRITION DIAGNOSIS: Increased kcal/prot intake needs R/T renal dysfunction, underweight status, wound healing as evidenced by ESRD dx, on HD, pt is 73% of [place] Body Weight w/ recent sacral stage 4 wound, s/p surgical debridement, pt os now s/p PEG placement. CURRENT DIET:NPO PO DIET RECOMMENDATIONS: liberalized regular diet/ texture as tolerated or per ADJUNCT PHILOSOPHY FACULTY for oral grat ENTERAL NUTRITION RECOMMENDATIONS: Nepro w/ goal of 40ml/hr x24 hrs to provide 960ml, 1728 kcal, 78g pro, 698ml free H2O - As medically able w/ GI access, start Nepro @20ml/hr for 6 hrs, advance 5ml/hr q4 hrs to goal. - Flush per MD, on HD - HOB over 30 degrees ADDITIONAL RECOMMENDATIONS: * TF recs as above * ADJUNCT PHILOSOPHY FACULTY if appropriate for oral grat * Wound healing: SIS BID + Nephrovite qdaily Vit C 250 mg BID (or per nephro), ZnSO4 220mg qd (or per Nephro) * Maintain calibrated bed scale wts; 45.5kg on calibrated bed (12/16) (3) Dementia (4) Leukocytosis (5) Weakness (6) ESRD (end stage renal disease) (7) Hypertensive nephrosclerosis (8) Anemia in chronic kidney disease (9) CVA, old, cognitive deficits (10) Deep tissue injury (11) acute toxic encephalopathy Jesse Quinn Dec 25, 2019 14:07
[2019-12-25] MEDS: D5 1/2NS 1,000 ML IV SCH (15:30)
--- NOTE | 2019-12-25 15:44 | General Progress Note ---
Assessment/Plan Status: stable, progressing Assessment/Plan: Assessment - TF intolerance - leukocytosis - Anemia - multifactorial - Anorexia, malnutrition - OBS - Decubitus ulcer / osteo - azotemia - improving - s/p PEG Recommendations - follow CBC - transfuse PRN - will consider flex sig - C Diff assay pending - wound care - Continue TF - GT care - elevate HOB - Abx Subjective Allergies: Coded Allergies: No Known Allergies (Unverified , 02/27/19) Subjective Above noted some loose BM notes specimen sent to lab for C Diff Objective Last 24 Hour Vital Signs Date Time Temp Pulse Resp B/P (MAP) Pulse Ox O2 Delivery O2 Flow Rate FiO2 12/25/19 12:00 98.3 84 15 118/56 (76) 100 12/25/19 09:00 Nasal Cannula 2.0 12/25/19 08:49 82 132/57 12/25/19 08:00 98.1 82 15 132/57 (82) 100 12/25/19 04:00 98.1 82 15 122/48 (72) 96 12/25/19 00:00 97.7 85 15 102/50 (67) 96 12/24/19 21:58 Nasal Cannula 2.0 12/24/19 21:00 98.1 90 15 106/47 (66) 96 12/24/19 20:11 77 117/60 12/24/19 17:00 77 117/60 (79) 12/24/19 16:00 98.2 78 15 112/57 (75) 96 Intake and Output 12/24/19 12/25/19 19:00 07:00 Intake Total 60 ml Balance 60 ml Tube Feeding 60 ml # Voids 2 # Bowel Movements 1 2 Laboratory Tests 12/25/19 07:55: White Blood Count 13.3H, Red Blood Count 2.98L, Hemoglobin 8.6L, Hematocrit 27.0L, Mean Corpuscular Volume 91, Mean Corpuscular Hemoglobin 28.8, Mean Corpuscular Hemoglobin Concent 31.7L, Red Cell Distribution Width 14.2, Platelet Count 239, Mean Platelet Volume 6.3L, Neutrophils (%) (Auto) 78.0H, Lymphocytes (%) (Auto) 14.6L, Monocytes (%) (Auto) 6.7, Eosinophils (%) (Auto) 0.3, Basophils (%) (Auto) 0.4 Height (Feet): 5 Height (Inches): 5.00 Weight (Pounds): 113 Objective Thin AA woman NCAT supple CTA RRR abd soft flat ND Ext no edema (+) decub ulcers OBS Willow Cee MD Dec 25, 2019 15:44
[2019-12-25 16:00] VITALS: BP 105/59
--- NOTE | 2019-12-25 19:19 | NUR ---
HAND-OFF: Report given to Gregory.
--- NOTE | 2019-12-25 19:22 | NUR ---
NURSE NOTES: Patient in bed, non verbal, no signs of pain. On O2 @2LPM via nasal cannula. With Gtube connected to feeding @40cc goal is 60cc. Hemodialysis nurse at bedside. Bed in lowest, lock engaged and alarm on. Will continue plan of care.
[2019-12-25 20:00] VITALS: BP 135/69
[2019-12-25] MEDS: Dakin's 0.125% Soln (Quarter Strength) 16oz TOPIC SCH (21:22)
[2019-12-26] VITALS: BP 131/65
--- NOTE | 2019-12-26 01:32 | Cardiology Progress Note ---
Subjective DATE OF SERVICE: Dec 25, 2019 Remains withdrawn, but alert. Now has radiographic signs of sigmoid colitis with diarrhea. CDiff toxin was negative. Completing anti-fungal therapy for cystitis. BP range better, but still low normal range off therapy. Clonidine patch was discontinued on 12/16. S/p uncomplicated PEG 12/17/19. No fevers/chills, N/V,D. No SOB. CT scan consistent with osteomyelitis. REVIEW OF SYSTEMS: unchanged from assessment of 12/15/19 However noted that atorvastatin dose was decreased to 10mg during last hospitalization, based on lipid panel. Objective Last 24 Hour Vital Signs Date Time Temp Pulse Resp B/P (MAP) Pulse Ox O2 Delivery O2 Flow Rate FiO2 12/26/19 00:00 98.1 102 18 131/65 (87) 100 12/25/19 20:42 Nasal Cannula 2.0 12/25/19 20:40 99 Nasal Cannula 2.0 28 12/25/19 20:35 92 135/69 12/25/19 20:00 97.9 92 17 135/69 (91) 99 12/25/19 16:00 98.5 87 16 105/59 (74) 100 12/25/19 12:00 98.3 84 15 118/56 (76) 100 12/25/19 09:00 Nasal Cannula 2.0 12/25/19 08:49 82 132/57 12/25/19 08:00 98.1 82 15 132/57 (82) 100 12/25/19 04:00 98.1 82 15 122/48 (72) 96 HEENT: normal ENT inspection RHYTHM: ST LUNGS: lungs clear bilaterally CARDIAC: regular rhythm, normal S1 and S2, rapid rate ABDOMEN: non tender, soft, no organomegaly, distended, G-Tube intact EXTREMITIES: No edema, other - Palpable bruit over UE AV fistula Laboratory Tests Test 12/25/19 07:55 White Blood Count 13.3 K/UL (4.8-10.8) H Red Blood Count 2.98 M/UL (4.20-5.40) L Hemoglobin 8.6 G/DL (12.0-16.0) L Hematocrit 27.0 % (37.0-47.0) L Mean Corpuscular Volume 91 FL (80-99) Mean Corpuscular Hemoglobin 28.8 PG (27.0-31.0) Mean Corpuscular Hemoglobin Concent 31.7 G/DL (32.0-36.0) L Red Cell Distribution Width 14.2 % (11.6-14.8) Platelet Count 239 K/UL (150-450) Mean Platelet Volume 6.3 FL (6.5-10.1) L Neutrophils (%) (Auto) 78.0 % (45.0-75.0) H Lymphocytes (%) (Auto) 14.6 % (20.0-45.0) L Monocytes (%) (Auto) 6.7 % (1.0-10.0) Eosinophils (%) (Auto) 0.3 % (0.0-3.0) Basophils (%) (Auto) 0.4 % (0.0-2.0) Microbiology Date/Time Source Procedure Growth Status 12/25/19 03:00 Stool Clostridium difficile Toxin Assay - Final Complete Assessment/Plan Assessment/Plan Sigmoid colitis Severe protein/calorie malnutrition Anemia of CKD ESRD Dysphagia Hx CVA with dementia Metabolic encephalopathy Sinus tachycardia Hypertension/HHD Chronic diastolic CHF Sacral wound - s/p debridement Severe sepsis Dehydration/hypovolemia corrected fungal cystitis Osteomyelitis Persisting leukocytosis Increased risk for endocarditis - 2D Echo unremarkable HD/UF Free water replacement as needed DVT prophylaxis Antimicrobials per ID Nutrition by Gtube Anti-diarrheals Continue off all anti-hypertensive therapy Bulmaro Hester MD Dec 26, 2019 01:32
[2019-12-26 04:00] VITALS: BP 140/76
[2019-12-26] MEDS: NovoLOG Insulin Flexpen SUBQ SCH ×3 (05:30→17:42)
[2019-12-26] MEDS: D5 1/2NS 1,000 ML IV SCH (05:33)
--- NOTE | 2019-12-26 07:08 | NUR ---
HAND-OFF: Report given to MICHAEL Cruz.
[2019-12-26 08:00] VITALS: BP 159/68
[2019-12-26] MEDS: Aspirin Baby 81mg ORAL SCH (08:37)
[2019-12-26] MEDS: Nephrovite tab (Rena-Vite) ORAL SCH (08:37)
[2019-12-26] MEDS: Metoprolol Tartrate 50mg tab ORAL SCH (08:37)
[2019-12-26] MEDS: Zinc Sulfate 220mg ORAL SCH (08:37)
[2019-12-26] MEDS: Ascorbic Acid 500mg tab ORAL SCH (08:37)
[2019-12-26] MEDS: Heparin 5000 units/ml inj SUBQ SCH (08:48)
--- NOTE | 2019-12-26 09:32 | Surgery Progress Note ---
Surgery Progress Note Subjective Additional Comments anemia prbc labs noted wbc stable comfortable no complaints no n/v/f/c Objective Last 24 Hour Vital Signs Date Time Temp Pulse Resp B/P (MAP) Pulse Ox O2 Delivery O2 Flow Rate FiO2 12/26/19 08:37 108 159/68 12/26/19 08:00 97.0 108 19 159/68 (98) 100 12/26/19 04:00 97.8 108 16 140/76 (97) 99 12/26/19 00:00 98.1 102 18 131/65 (87) 100 12/25/19 20:42 Nasal Cannula 2.0 12/25/19 20:40 99 Nasal Cannula 2.0 28 12/25/19 20:35 92 135/69 12/25/19 20:00 97.9 92 17 135/69 (91) 99 12/25/19 16:00 98.5 87 16 105/59 (74) 100 12/25/19 12:00 98.3 84 15 118/56 (76) 100 I&O Intake and Output 12/25/19 12/26/19 19:00 07:00 Intake Total 110 ml 945 ml Output Total 500 ml Balance 110 ml 445 ml IV Total 30 ml 345 ml Tube Feeding 80 ml 600 ml Output Hemodialysis UF 500 ml # Voids 2 1 # Bowel Movements 1 Dressing: saturated Wound: clean Cardiovascular: RSR Respiratory: clear, decreased breath sounds Abdomen: soft, non-tender, present bowel sounds Extremities: no edema, no tenderness, no cyanosis Plan Problems: (1) Sacral decubitus ulcer, stage IV Assessment & Plan: 74-year-old female with large DTI prior necrotic tissue significant requiring debridement status post excisional debridement identifying nonviable tissue down to coccyx and sacrum. Patient is been doing well and recovering the nursing facility with good local care. She now presents still has a large open wound which was goal to have complete granulation potential closure and coverage at some point. Unfortunately given her nutritional status and decreased oral intake she is deteriorated somewhat does have some necrotic edges and slough noted in the wound bed. There is some granulation tissue approximately 6070% with some backbleeding as well. Currently no nausea vomiting fever chills. Labs noted. Albumin low. BMI low. Poor nutritional status. At this time would recommend PEG tube placement and initiation of tube feeds along with oral intake for gratification. Patient needs nutritional optimization for her wounds and her overall care plan. We will follow with recommendations Pt presented on admission with multiple Pressure injuries. Full thickness stage 4Sacral Pressure injury with undermined borders(L)12.5cm x (W)13.5cm, Undermining clockwise 2-5 by 2.5cm @3o'clock, Undermining Clockwise 10-12 by 2.6cm@10o'clock. Scattered slough ,10% necrotic at base. Bone is palpable. Undermined borders clockwise 9-3o'clock is indurated and necrotic. Surrounding perimeter of wound is indurated, purpuric and red tinged. At apex of wound along borders is an area of necrosis from 11-3o'clock.Wound is malodorous. Small amt taylor coloured exudate noted. At R Sacrum, in close proximity to above Sacral wound is a DTPI(L)6cm x (W)3cm. Base of pressure injury is purpuric with linear area of blood filled blister. Marginal erythema along borders.Marginal erythema along borders. At R Iliac is and area of hyperpigmentation with DTPI evolving along L aspect of borders of hyperpigmented area(L)2cm x ((W)2.2cm. DTPI L Ischium(L)6cm x (W)6.5cm. Base of wound is indurated, purpuric with surrounding non-blanching erythema. Scattered area of hypopigmentation noted to most medial aspect of L Ischium and perineum. Unstageable Pressure injury R Heel. Stable dry eschar noted. (L)2cm x (W)3.4cm. Periwound R Heel is blanchable but boggy. DTPI Medial L Heel(L)3cm x (W)4cm. Base of wound is maroon and indurated. Unstageable Pressure injury L lateral Malleolus(L)3cm x (W)3cm. 100% Dry brown/ black eschar noted at base of wound. DTPI R Lateral Malleolus(L)0.5cm x (W)2cm. Base of wound is indurated purpuric with marginal erythema along borders. Tx.Plan: Cleanse Sacral wound with Dakin's 0.125% Adwoa. Loosely pack sacral wound with Dakin's moistened KERLIX. Apply Moisture Barrier Paste along borders. Cover with Optifoam drsg DAILY and PRN Apply Cavilon Skin Barrier to R Iliac. R sacrum,L Ischium. Cover each site with Optifoam drsgs. Change every 3 days and prn. Apply Betadine to Malleoli and both heels. Cover each site with Optifoam Drsgs. Change every 3days and prn. Reposition at least every 2hours or as tolerated. Place pillow between knees. Off-load heels with pillows. Air fluidized Mattress. (2) Severe malnutrition Assessment & Plan: s/p peg tf as tolerated DAILY ESTIMATED NEEDS: Needs based on Renal, HD, wound, 45.5kg 30-40 kcals/kg 2792-8463 total kcals 1.25-2 g protein/kg 57-91 g total protein Fluid per MD, on HD NUTRITION DIAGNOSIS: Increased kcal/prot intake needs R/T renal dysfunction, underweight status, wound healing as evidenced by ESRD dx, on HD, pt is 73% of [place] Body Weight w/ recent sacral stage 4 wound, s/p surgical debridement, pt os now s/p PEG placement. CURRENT DIET:NPO PO DIET RECOMMENDATIONS: liberalized regular diet/ texture as tolerated or per SENIOR RELATIONSHIP MANAGER for oral grat ENTERAL NUTRITION RECOMMENDATIONS: Nepro w/ goal of 40ml/hr x24 hrs to provide 960ml, 1728 kcal, 78g pro, 698ml free H2O - As medically able w/ GI access, start Nepro @20ml/hr for 6 hrs, advance 5ml/hr q4 hrs to goal. - Flush per MD, on HD - HOB over 30 degrees ADDITIONAL RECOMMENDATIONS: * TF recs as above * SENIOR RELATIONSHIP MANAGER if appropriate for oral grat * Wound healing: SIS BID + Nephrovite qdaily Vit C 250 mg BID (or per nephro), ZnSO4 220mg qd (or per Nephro) * Maintain calibrated bed scale wts; 45.5kg on calibrated bed (12/16) (3) Dementia (4) Leukocytosis (5) Weakness (6) ESRD (end stage renal disease) (7) Hypertensive nephrosclerosis (8) Anemia in chronic kidney disease (9) CVA, old, cognitive deficits (10) Deep tissue injury (11) acute toxic encephalopathy Jesse Quinn Dec 26, 2019 09:32
--- NOTE | 2019-12-26 09:48 | NUR ---
DISCHARGE PLANNING DR RIVAS GAVE TO/RB TO DC BACK TO SNF. NOTED AND CARRIED OUT. MICHAEL MCKEON INFORMED.
[2019-12-26] MEDS ORDERED: MERREM MONIT1 EA IV (09:59)
[2019-12-26] MEDS ORDERED: ASCORBIC ACID500 MG ORAL (10:02)
[2019-12-26] MEDS ORDERED: METOPROLOL TART50 M1 ORAL (10:02)
[2019-12-26] MEDS ORDERED: NEPHROVITE1 TAB ORAL (10:02)
[2019-12-26] MEDS ORDERED: ZINC SULFATE220 M1 ORAL (10:03)
[2019-12-26] MEDS ORDERED: D5W 50ML50 ML IV (10:04)
[2019-12-26] MEDS ORDERED: NOVOLOG100 UNITS1 (10:04)
[2019-12-26] MEDS ORDERED: WAT IV (10:05)
[2019-12-26] MEDS ORDERED: DEXTROSE 5% IV (10:05)
[2019-12-26] MEDS ORDERED: EPOGEN4000 UNIT/ SUBQ (10:06)
[2019-12-26] MEDS ORDERED: ZYPREXA2.5 MG ORAL (10:06)
[2019-12-26] MEDS ORDERED: MILK OF MA400 MG/51 ORAL (10:07)
--- NOTE | 2019-12-26 10:07 | NUR ---
*-*DISCHARGE PLANNED*-* PATIENT HAS BEEN ACCEPTED AND WILL BE DISCHARGED BACK TO: [facility] P: [phone] OR NURSE TO NURSE REPORT ROOM# 20.B SKILLED [facility] TRANSPORTATION SET FOR 12:30PM S/W [facility] [id number]. S/W PATIENTS BROTHER SALIMA, WHO IS IN AGREEMENT WITH DISCHARGE PLAN.
--- NOTE | 2019-12-26 10:47 | Infectious Diseases Prog Note ---
Assessment/Plan Assessment/Plan antibiotics ; meropenem A 1. coccygeal osteomyelitis with e.coli, morganella 2. dementia 3. hypertension 4. renal failure on HD 1. continue meropenem 39 more days 2. will follow up cultures Subjective ROS Limited/Unobtainable: Yes Allergies: Coded Allergies: No Known Allergies (Unverified , 02/27/19) Objective Last 24 Hour Vital Signs Date Time Temp Pulse Resp B/P (MAP) Pulse Ox O2 Delivery O2 Flow Rate FiO2 12/26/19 09:00 Nasal Cannula 2.0 12/26/19 08:37 108 159/68 12/26/19 08:00 97.0 108 19 159/68 (98) 100 12/26/19 04:00 97.8 108 16 140/76 (97) 99 12/26/19 00:00 98.1 102 18 131/65 (87) 100 12/25/19 20:42 Nasal Cannula 2.0 12/25/19 20:40 99 Nasal Cannula 2.0 28 12/25/19 20:35 92 135/69 12/25/19 20:00 97.9 92 17 135/69 (91) 99 12/25/19 16:00 98.5 87 16 105/59 (74) 100 12/25/19 12:00 98.3 84 15 118/56 (76) 100 Height (Feet): 5 Height (Inches): 5.00 Weight (Pounds): 97 Respiratory/Chest: lungs clear Cardiovascular: normal rate, regular rhythm, no gallop/murmur Abdomen: soft, non tender, other - GT Extremities: no edema Microbiology Date/Time Source Procedure Growth Status 12/25/19 03:00 Stool Clostridium difficile Toxin Assay - Final Complete Current Medications Medications (Trade) Dose Ordered Sig/Jeanne Route PRN Reason Start Time Stop Time Status Last Admin Dose Admin Acetaminophen (Tylenol) 650 mg Q4H PRN ORAL mild pain/T>100.5 12/13/19 20:00 01/12/20 19:59 Ascorbic Acid (Vitamin C) 500 mg DAILY ORAL 12/14/19 09:00 01/13/20 08:59 12/26/19 08:37 Aspirin (ASA) 81 mg DAILY ORAL 12/14/19 09:00 01/28/20 08:59 12/26/19 08:37 Atorvastatin Calcium (Lipitor) 10 mg BEDTIME ORAL 12/18/19 21:00 03/17/20 20:59 12/24/19 20:11 Dextrose (Dextrose 50%) 25 ml Q30M PRN IV Hypoglycemia 12/21/19 13:00 03/20/20 12:59 Dextrose (Dextrose 50%) 50 ml Q30M PRN IV Hypoglycemia 12/21/19 13:00 03/20/20 12:59 Dextrose/Sodium Chloride 1,000 ml @ 30 mls/hr Q24H IV 12/23/19 15:30 01/22/20 15:29 12/26/19 05:33 Epoetin Reuben (Epoetin Reuben(ESRD on dialysis)) 2,000 unit TUE-TUE-TUE SUBQ 12/24/19 21:00 03/23/20 20:59 12/24/19 20:57 Epoetin Reuben (Epoetin Reuben(ESRD on dialysis)) 4,000 unit TUE-TUE-TUE SUBQ 12/24/19 21:00 03/23/20 20:59 12/24/19 20:57 Escitalopram Oxalate (Lexapro) 10 mg DAILY ORAL 12/14/19 09:00 01/13/20 08:59 12/26/19 08:37 Heparin Sodium (Porcine) (Heparin 5000 units/ml) 5,000 units EVERY 12 HOURS SUBQ 12/14/19 09:00 01/28/20 08:59 12/26/19 08:48 Insulin Aspart (NovoLOG) BEFORE MEALS AND HS SUBQ 12/21/19 16:30 03/20/20 16:29 12/26/19 05:30 Magnesium Hydroxide (Mom) 30 ml DAILYPRN PRN ORAL Constipation 12/13/19 20:00 01/12/20 19:59 12/23/19 20:30 Meropenem 500 mg/ Sodium Chloride 55 ml @ 110 mls/hr Q24H IVPB 12/24/19 13:00 12/29/19 12:59 12/25/19 13:07 Metoprolol Tartrate (Lopressor) 50 mg Q12HR ORAL 12/13/19 21:00 03/12/20 20:59 12/26/19 08:37 Olanzapine (ZyPREXA) 2.5 mg Q6H PRN ORAL Agitation 12/13/19 20:00 01/27/20 19:59 Ondansetron HCl (Zofran) 4 mg Q4H PRN IVP Nausea & Vomiting 12/22/19 21:15 01/21/20 21:14 12/22/19 21:25 Sodium Hypochlorite (Dakin's Quarter Strength) 1 applic QHS TOPIC 12/18/19 21:00 01/17/20 20:59 12/25/19 21:22 Vitamin B Complex/ Vit C/Folic Acid (Nephrovite) 1 tab DAILY ORAL 12/14/19 09:00 01/13/20 08:59 12/26/19 08:37 Zinc Sulfate (Zinc Sulfate) 220 mg DAILY ORAL 12/14/19 09:00 03/13/20 08:59 12/26/19 08:37 Ovidio Wilson MD Dec 26, 2019 10:47
--- NOTE | 2019-12-26 11:02 | Nephrology Progress Note ---
Assessment/Plan Problem List: (1) ESRD (end stage renal disease) (2) Hypertensive nephrosclerosis (3) CVA, old, cognitive deficits (4) Severe malnutrition (5) Sacral decubitus ulcer, stage IV (6) adult onset diabetes (7) Osteomyelitis Plan HD TTS PEG decubitus care, bp low-nl, dc iv, glu 200+ SS insulin, glu now most low 100's GT feed, CT with inflamation rectal and colon GI following, frail but now stable for dc Subjective ROS Limited/Unobtainable: Yes Objective Objective Last 24 Hour Vital Signs Date Time Temp Pulse Resp B/P (MAP) Pulse Ox O2 Delivery O2 Flow Rate FiO2 12/26/19 09:00 Nasal Cannula 2.0 12/26/19 08:37 108 159/68 12/26/19 08:00 97.0 108 19 159/68 (98) 100 12/26/19 04:00 97.8 108 16 140/76 (97) 99 12/26/19 00:00 98.1 102 18 131/65 (87) 100 12/25/19 20:42 Nasal Cannula 2.0 12/25/19 20:40 99 Nasal Cannula 2.0 28 12/25/19 20:35 92 135/69 12/25/19 20:00 97.9 92 17 135/69 (91) 99 12/25/19 16:00 98.5 87 16 105/59 (74) 100 12/25/19 12:00 98.3 84 15 118/56 (76) 100 Intake and Output 12/25/19 12/26/19 19:00 07:00 Intake Total 110 ml 945 ml Output Total 500 ml Balance 110 ml 445 ml IV Total 30 ml 345 ml Tube Feeding 80 ml 600 ml Output Hemodialysis UF 500 ml # Voids 2 1 # Bowel Movements 1 Height (Feet): 5 Height (Inches): 5.00 Weight (Pounds): 97 General Appearance: no apparent distress, lethargic, confused Cardiovascular: regular rhythm Respiratory/Chest: lungs clear Abdomen: soft Extremities: no edema Neurologic: abnormal gluing machine operator electronic II-XII, motor weakness Objective large decubitus Dylon Stringer MD Dec 26, 2019 11:02
[2019-12-26 12:00] VITALS: BP 131/59
--- NOTE | 2019-12-26 12:10 | NUR ---
DISCHARGE PLANNING PATIENT HAS BEEN REFERRED BACK TO [facility] [address] [place] [address] P: [phone] F: [phone] S/W [facility] AT [facility]. CONFIRMED HD DAYS ON 1330 PM Addendum: 12/26/19 at 1226 by EARLENE CLARKE LVN LVN CALL MADE TO CALL THE CARE @ [phone] S/W [facility], CONFIRMED STANDING ORDER FOR [facility] TRANSPORTATION TO AND FROM ON . RUBBER STAMP ASSEMBLER TIME @ 1230 PM FROM [employer] WITH RETURN TRIP AT 1730 PM. STANDING ORDER REF # [id number].
--- NOTE | 2019-12-26 13:18 | NUR ---
NURSE NOTES: RN SPOKE TO BONDERIZER AND MADE AWARE MISSING IV MERREM.
--- NOTE | 2019-12-26 13:18 | NUR ---
NURSE NOTES: RN SPOKE TO MAULIK AT [facility] AND PER MAULIK, THEY CANNOT ACCEPT PT UNLESS COVID TEST DONE PAST 7 DAYS. COVID TEST DONE ON 12/14/2019. [facility] MADE PENNY THOMPSON AWARE. RN MADE DR RIVAS AWARE AND RECEIVED ORDER FOR RAPID COVID SWAB. RN SPOKE TO MARILY, NURSE OLIVER FILTER OPERATOR, AND MARILY WILL MAKE RN AWARE WHEN SHE IS BACK IN OFFICE TO SALES TECHNICIAN HOME THEATER COVID SWAB. Addendum: 12/26/19 at 1358 by MIKE KIM RN RN [facility] PLACED ON WILL-CALL
--- NOTE | 2019-12-26 13:35 | NUR ---
NURSE NOTES: COVID SWAB COMPLETED AND SENT TO LAB.
[2019-12-26] MEDS: Meropenem 500 MG in NS 55 ML IVPB SCH (14:10)
--- NOTE | 2019-12-26 14:12 | General Progress Note ---
Assessment/Plan Problem List: (1) Dementia ICD Codes: F03.90 - Unspecified dementia without behavioral disturbance SNOMED: 65186332 (2) Weakness ICD Codes: R53.1 - Weakness SNOMED: 35772613 (3) ESRD (end stage renal disease) ICD Codes: N18.6 - End stage renal disease SNOMED: 17676231 (4) Hypertensive nephrosclerosis ICD Codes: I12.9 - Hypertensive chronic kidney disease with stage 1 through stage 4 chronic kidney disease, or unspecified chronic kidney disease SNOMED: 883120264 (5) CVA, old, cognitive deficits ICD Codes: I69.319 - Unspecified symptoms and signs involving cognitive functions following cerebral infarction SNOMED: 09264472, 187753877, 915673399, 343031774 (6) Deep tissue injury ICD Codes: T14.8XXA - Other injury of unspecified body region, initial encounter SNOMED: 014947784 (7) acute toxic encephalopathy (8) Severe malnutrition ICD Codes: E43 - Unspecified severe protein-calorie malnutrition SNOMED: 50044489 (9) Sacral decubitus ulcer, stage IV ICD Codes: L89.154 - Pressure ulcer of sacral region, stage 4 SNOMED: 350612992, 635981252 Status: stable, progressing Assessment/Plan: Continue G-tube feeds. Antidiarrheal treatment as needed. 38 more days of IV meropenem. Discussed with staff. Patient apparently has good veins should not have issues with IV access AT the group home facility. Subjective ROS Limited/Unobtainable: Yes Constitutional: Reports: malaise, weakness HEENT: Reports: no symptoms Cardiovascular: Reports: no symptoms Respiratory: Reports: no symptoms Gastrointestinal/Abdominal: Reports: no symptoms Genitourinary: Reports: no symptoms Neurologic/Psychiatric: Reports: depressed, pre-existing deficit Endocrine: Reports: no symptoms Hematologic/Lymphatic: Reports: anemia Allergies: Coded Allergies: No Known Allergies (Unverified , 02/27/19) All Systems: reviewed and negative except above Subjective No overnight events. C. difficile test is negative. Patient is currently tolerating feedings. Diarrhea is diminished. Otherwise poorly responsive at baseline. Objective Last 24 Hour Vital Signs Date Time Temp Pulse Resp B/P (MAP) Pulse Ox O2 Delivery O2 Flow Rate FiO2 12/26/19 12:00 99.1 91 18 131/59 (83) 98 8/5/20 09:00 Nasal Cannula 2.0 12/26/19 08:37 108 159/68 12/26/19 08:00 97.0 108 19 159/68 (98) 100 12/26/19 04:00 97.8 108 16 140/76 (97) 99 12/26/19 00:00 98.1 102 18 131/65 (87) 100 12/25/19 20:42 Nasal Cannula 2.0 12/25/19 20:40 99 Nasal Cannula 2.0 28 12/25/19 20:35 92 135/69 12/25/19 20:00 97.9 92 17 135/69 (91) 99 12/25/19 16:00 98.5 87 16 105/59 (74) 100 Intake and Output 12/25/19 12/26/19 19:00 07:00 Intake Total 110 ml 945 ml Output Total 500 ml Balance 110 ml 445 ml IV Total 30 ml 345 ml Tube Feeding 80 ml 600 ml Output Hemodialysis UF 500 ml # Voids 2 1 # Bowel Movements 1 Height (Feet): 5 Height (Inches): 5.00 Weight (Pounds): 97 Objective General Appearance: WD/WN, lethargic, confused EENT: PERRL/EOMI Neck: non-tender, normal alignment, supple Cardiovascular: normal peripheral pulses, normal rate, regular rhythm Respiratory/Chest: chest wall non-tender, lungs clear, normal breath sounds Abdomen: normal bowel sounds, non tender, soft, no organomegaly, no mass Edema: no edema noted Arm (L), no edema noted Arm (R) Neurologic: oil separator II-XII grossly normal, alert, responsive, disoriented Skin: normal pigmentation Lymphatic: normal anterior cervical (L), normal anterior cervical (R) Freddy Quevedo MD Dec 26, 2019 14:12
--- NOTE | 2019-12-26 15:14 | NUR ---
NURSE NOTES: COVID RESULT NEGATIVE. [facility] ARRANGED FOR 1600HRS WITH [facility]. RN GAVE REPORT TO PERRY, RN DIRECTOR SALES SUPPORT, AT [facility]. PERRY MADE AWARE OF COVID NEGATIVE RESULT TODAY AND PT TO CONTINUE IV MERREM 500MG Q24HR X 38 DAYS STARTING TOMORROW. TODAY'S DOSE WAS ADMINISTERED. RN VERBALIZED UNDERSTANDING. RN SPOKE TO SALIMA (NEXT OF KIN) AND MADE AWARE OF DISCHARGE. AWAITING AMBULANCE PROVIDER RELATIONS SPECIALIST.
[2019-12-26 16:00] VITALS: BP 137/60
--- NOTE | 2019-12-26 16:16 | NUR ---
NURSE NOTES: SPOKE TO NELLI AT [facility], [facility] [id number].
--- NOTE | 2019-12-26 16:50 | NUR ---
NURSE NOTES: NOVOLOG PEN MISSING. RN SPOKE TO [employer]OODMARE FOREMAN. PREVIOUS BR[employer]OD[employer]ARE FOREMAN MIGHT HAVE COLLECTED PEN PENDING DISCHARGE AND NOT AVAILABLE. PT TO BE DISCHARGED SOON.
--- NOTE | 2019-12-26 17:39 | NUR ---
NURSE NOTES: RN SPOKE TO STEPHANE AT [facility]. NEW ETA [id number].
--- NOTE | 2019-12-26 18:34 | NUR ---
NURSE NOTES: PT DISCHARGED WITH AMBULANCE PERSONNEL IN STABLE CONDITION.
--- NOTE | 2019-12-26 21:09 | General Progress Note ---
Assessment/Plan Status: stable, progressing Assessment/Plan: Assessment - TF intolerance - resolved - leukocytosis - Anemia - multifactorial - Anorexia, malnutrition - OBS - Decubitus ulcer / osteo - azotemia - improving - s/p PEG - CT changes - ? significance Recommendations - follow CBC - transfuse PRN - will consider flex sig - wound care - Continue TF - GT care - elevate HOB - Abx Subjective Allergies: Coded Allergies: No Known Allergies (Unverified , 02/27/19) Subjective Above noted for d/c today C Diff (-) tolerating feeds Objective Last 24 Hour Vital Signs Date Time Temp Pulse Resp B/P (MAP) Pulse Ox O2 Delivery O2 Flow Rate FiO2 12/26/19 16:00 98.8 93 19 137/60 (85) 100 12/26/19 12:00 99.1 91 18 131/59 (83) 98 12/26/19 09:00 Nasal Cannula 2.0 12/26/19 08:37 108 159/68 12/26/19 08:00 97.0 108 19 159/68 (98) 100 12/26/19 04:00 97.8 108 16 140/76 (97) 99 12/26/19 00:00 98.1 102 18 131/65 (87) 100 Intake and Output 12/25/19 12/26/19 19:00 07:00 Intake Total 110 ml 945 ml Output Total 500 ml Balance 110 ml 445 ml IV Total 30 ml 345 ml Tube Feeding 80 ml 600 ml Output Hemodialysis UF 500 ml # Voids 2 1 # Bowel Movements 1 Height (Feet): 5 Height (Inches): 5.00 Weight (Pounds): 113 Objective Thin AA woman NCAT supple CTA RRR abd soft flat ND Ext no edema (+) decub ulcers OBS Willow Cee MD Dec 26, 2019 21:09
--- NOTE | 2019-12-27 00:39 | Cardiology Progress Note ---
Subjective DATE OF SERVICE: Dec 26, 2019 Remains withdrawn, but alert. Now has radiographic signs of sigmoid colitis with diarrhea. CDiff toxin was negative. Completing anti-fungal therapy for cystitis. BP range better, but still off antiHTN therapy. Remains off Clonidine patch S/p uncomplicated PEG 12/17/19. No fevers/chills, N/V,D. No SOB. CT scan consistent with osteomyelitis. REVIEW OF SYSTEMS: unchanged from assessment of 12/15/19 However noted that atorvastatin dose was decreased to 10mg during last hospitalization, based on lipid panel. Objective Last 24 Hour Vital Signs Date Time Temp Pulse Resp B/P (MAP) Pulse Ox O2 Delivery O2 Flow Rate FiO2 12/26/19 16:00 98.8 93 19 137/60 (85) 100 12/26/19 12:00 99.1 91 18 131/59 (83) 98 12/26/19 09:00 Nasal Cannula 2.0 12/26/19 08:37 108 159/68 12/26/19 08:00 97.0 108 19 159/68 (98) 100 12/26/19 04:00 97.8 108 16 140/76 (97) 99 HEENT: normal ENT inspection RHYTHM: ST LUNGS: lungs clear bilaterally CARDIAC: regular rhythm, normal S1 and S2, rapid rate ABDOMEN: non tender, soft, no organomegaly, distended, G-Tube intact EXTREMITIES: No edema, other - Palpable bruit over UE AV fistula Microbiology Date/Time Source Procedure Growth Status 12/26/19 13:30 Nasopharynx SARS-CoV-2 RdRp Gene Assay - Final Complete 12/25/19 03:00 Stool Clostridium difficile Toxin Assay - Final Complete Assessment/Plan Assessment/Plan Sigmoid colitis Severe protein/calorie malnutrition Anemia of CKD ESRD Dysphagia Hx CVA with dementia Metabolic encephalopathy Sinus tachycardia Hypertension/HHD Chronic diastolic CHF Sacral wound - s/p debridement Severe sepsis Dehydration/hypovolemia corrected fungal cystitis Osteomyelitis Increased risk for endocarditis - 2D Echo unremarkable HD/UF DVT prophylaxis Antimicrobials per ID - to be completed at SNF. Nutrition by Gtube Anti-diarrheals prn Continue off all anti-hypertensive therapy Bulmaro Hester MD Dec 27, 2019 00:39
--- NOTE | 2019-12-27 23:12 | CDS Physician Query ---
Clarification is required for compliance, coding accuracy, and to reflect severity of illness for this patient Dear Dr. Freddy Quevedo MD Date: 2019 CDI/CDS : Raphael Machuca Clarification is needed for one of the following conditions . Please choose the answer that best indicates whether the associated condition should be rule in/ ruled out. Thank you. "74-year-old female with a history of hypertension, end-stage renal disease, and history of large infected sacral wound status post debridement, admitted with complaints of anorexia and severe protein malnutrition secondary to poor p.o. intake." [H&P Freddy Quevedo M.D. 12/14/19] Assessment/Plan: Sigmoid colitis, Severe protein/calorie malnutrition, Anemia of CKD, ESRD, Dysphagia, Hx CVA with dementia, Metabolic encephalopathy Sinus tachycardia, Hypertension/HHD, Chronic diastolic CHF, Sacral wound - s/p debridement, Severe sepsis Dehydration/hypovolemia corrected fungal cystitis,Osteomyelitis [ H&P Bulmaro Hester MD 12/23/2019] The diagnois of "SEVER SEPSIS" was made in the medical record on Cardio PNs Bulmaro Hester MD. ONLY Please indicate below the status of the aforementioned diagnosis. "Severe Sepsis": [x ] Ruled IN [ ] Ruled out [ ] Other: Present on Admission: [ x ] Yes [ ] No [ ] Clinically Undetermined Physician signature Date Please also document in your Progress Notes and/or Discharge Summary and indicate if the condition was present on admission. MTDD
--- NOTE | 2020-01-01 09:29 | Endoscopy Procedure Note ---
Endoscopy Procedure Note General Indication for Procedure: dysphagia Procedures Performed: PEG Operative Findings/Diagnosis: s/p PEG Specimen: none Pt Tolerated Procedure Well: Yes Estimated Blood Loss: none Anesthesia Anesthesiologist: see report Anesthesia: MAC Medications Medication Given: see anesthesia record Inserted Devices Implant(s) used?: No GI Core Measures 50 yrs or older w/o bx or poly: Not Applicable 10yrs. F/U recommended: Not Applicable Willow Cee MD Jan 01, 2020 09:29
--- NOTE | 2020-01-01 09:29 | Brief Operative Note ---
Immediate Post Operative Note Operative Note Chief Complaint: dysohagia Pre-op Diagnosis: Dysphagia Procedure: PEG Specimen: none Complications: none Fluids: per anesthesia Implant(s) used?: No Willow Cee MD Jan 01, 2020 09:29
--- NOTE | 2020-01-01 12:45 | Operative Note - Dictated ---
DATE OF OPERATION: 12/17/2019 GASTROENTEROLOGY PROCEDURE REPORT PROCEDURE: Upper gastrointestinal endoscopy with gastrostomy tube placement. SURGEON: Willow Cee MD. ANESTHESIA: Please see the anesthesiologist notes for details. PRE-ENDOSCOPIC DIAGNOSIS: Dysphagia. POST-ENDOSCOPIC DIAGNOSIS: Status post gastrostomy tube placement. DESCRIPTION OF PROCEDURE: The procedure, its risks, indications, alternatives, and possible complications were explained and an informed consent was obtained. The patient was then sedated in the supine position and a diagnostic upper endoscope was introduced through the oropharynx and advanced to the duodenum. The endoscope was then gradually withdrawn and the mucosa examined carefully. Examination of the upper gastrointestinal mucosa did not reveal any abnormalities. The location for placement of gastrostomy tube was identified by palpation and transillumination techniques. The outside skin was sterilely prepared, anesthetized, and the trocar needle was used to place the gastrostomy tube using a standard pull technique. Position was verified endoscopically. The endoscope was removed and the patient was sent to recovery in good condition. COMPLICATIONS: None. RECOMMENDATIONS: 1. Observe overnight. 2. Begin tube feedings tomorrow. Willow Cee M.D. DR: BROCK JOB#: [id number] CC:
== END 2019-12-26 18:35 | DRG 871 ==
LOC: 4E 18:40
PROC: 5A1D70Z Performance of Urinary Filtration, Intermittent, Less than 6 Hours Per Day (ICD-10-PCS; principal; 2019-12-15)
PROC: 0DH63UZ Insertion of Feeding Device into Stomach, Percutaneous Approach (ICD-10-PCS; 2019-12-17)
PROC: 30233N1 Transfusion of Nonautologous Red Blood Cells into Peripheral Vein, Percutaneous Approach (ICD-10-PCS; 2019-12-24)
DX: A41.9 Sepsis, unspecified organism (principal); L89.154 Pressure ulcer of sacral region, stage 4; E43 Unspecified severe protein-calorie malnutrition; N18.6 End stage renal disease; G92 Toxic encephalopathy; M46.28 Osteomyelitis of vertebra, sacral and sacrococcygeal region; I13.2 Hypertensive heart and chronic kidney disease with heart failure and with stage 5 chronic kidney disease, or end stage renal disease; I69.354 Hemiplegia and hemiparesis following cerebral infarction affecting left non-dominant side; Z68.1 Body mass index [BMI] 19.9 or less, adult; B37.41 Candidal cystitis and urethritis; I50.32 Chronic diastolic (congestive) heart failure; Z43.1 Encounter for attention to gastrostomy; R65.20 Severe sepsis without septic shock; F09 Unspecified mental disorder due to known physiological condition; K56.41 Fecal impaction; D63.1 Anemia in chronic kidney disease; F03.90 Unspecified dementia, unspecified severity, without behavioral disturbance, psychotic disturbance, mood disturbance, and anxiety; R13.10 Dysphagia, unspecified; I69.319 Unspecified symptoms and signs involving cognitive functions following cerebral infarction; L89.156 Pressure-induced deep tissue damage of sacral region; L89.326 Pressure-induced deep tissue damage of left buttock; L89.526 Pressure-induced deep tissue damage of left ankle; L89.626 Pressure-induced deep tissue damage of left heel; E11.22 Type 2 diabetes mellitus with diabetic chronic kidney disease; B96.20 Unspecified Escherichia coli [E. coli] as the cause of diseases classified elsewhere; B96.89 Other specified bacterial agents as the cause of diseases classified elsewhere; Z99.2 Dependence on renal dialysis; K52.89 Other specified noninfective gastroenteritis and colitis; K52.9 Noninfective gastroenteritis and colitis, unspecified
CPT/HCPCS: 36415; 71045; 72193; 74018; 74176; 80053; 80202; 81003; 82962; 83605; 85007; 85025; 85610; 86706; 86850; 86900; 86901; 86920; 87040; 87070; 87081; 87086; 87181; 87205; 87324; 93005; 94003; 94150; J1815; J2405; U0002